=== PATIENT | female | born 1975 | race American Indian/Alaskan Native ===

== ENCOUNTER 2017-02-07 21:51 | Inpatient (IN) | payer MEDICAID ==
[2017-02-07 21:51] VITALS: BMI 25.8
--- NOTE | 2017-02-07 22:26 | ED PDOC ---
Arrival/HPI - General Chief Complaint: Abdominal Pain Time Seen by Provider: 02/07/17 22:03 Historian: Patient - History of Present Illness Narrative History of Present Illness (Text): 02/07/17 22:26 Shanelle Mancini is a 41 year old female, whose past medical history includes gastroparesis, diabetes, hypertension, gastric/duodenal ulcers, and GERD, who presents to the emergency department complaining of epigastric pain since this morning. /Patient reports associated nausea and vomiting. Patient was seen in the emergency department on 01/06/2017 for similar complaints and admitted to the hospital for further evaluation. Patient denies any fever, chills, chest pain, shortness of breath, diarrhea, urinary symptoms, back pain, neck pain, headache, dizziness, or any other complaints. PMD: Dr. Juan Theodore Time/Duration: Other (this morning) Symptom Onset: Gradual Symptom Course: Unchanged Activities at Onset: Rest, Light Context: Home Past Medical History - Provider Review Nursing Documentation Reviewed: Yes - Infectious Disease Hx of Infectious Diseases: None - Tetanus Immunization Tetanus Immunization: Unknown - Past Medical History Past Medical History: No Previous - Cardiac Hx Hypertension: Yes - Pulmonary Hx Respiratory Disorders: No Hx Asthma: No Hx Bronchitis: No Hx Chronic Obstructive Pulmonary Disease (COPD): No Hx Emphysema: No - Neurological Hx Neurological Disorder: Yes (NEUROPATHY) Hx Alzheimer's Disease: No HX Cerebrovascular Accident: No Hx Dementia: No Hx Migraine: No Hx Parkinson's Disease: No Hx Seizures: No Hx Transient Ischemic Attacks (TIA): No - HEENT Hx HEENT Disorder: No Hx Blind: No Hx Cataracts: No Hx Deafness: No Hx Difficulty Chewing: No Hx Epistaxis: No Hx Glaucoma: No Hx Macular Degeneration: No - Renal Hx Renal Disorder: No Hx Renal Failure: No - Endocrine/Metabolic Hx Endocrine Disorders: Yes Hx Diabetes Mellitus Type 1: Yes Hx Hyperthyroidism: No Hx Hypothyroidism: No - Hematological/Oncological Hx Blood Transfusions: No Hx Blood Transfusion Reaction: No - Integumentary Hx Dermatological Disorder: Yes (DIABETIC FOOT ULCER R/O OSTEO 06-04-14) Hx Basal Cell Carcinoma: No Hx Eczema: No Hx Melanoma: No Hx Psoriasis: No Hx Squamous Cell Carcinoma: No - Musculoskeletal/Rheumatological Hx Musculoskeletal Disorders: Yes (B/L FOOT ULCER WERE HEALED) Hx Falls: No Hx Osteomyelitis: Yes (LEFT FOOT) - Gastrointestinal Hx Gastrointestinal Disorders: (gastritis,gastropoeresis) - Genitourinary/Gynecological Hx Urinary Tract Infection: Yes - Psychiatric Hx Anxiety: Yes Hx Substance Use: No - Past Surgical History Past Surgical History: No Previous - Surgical History Hx Amputation: No Hx Appendectomy: No Hx Cardiac Catheterization: No Hx Cholecystectomy: No Hx Gastric Bypass Surgery: No Hx Hysterectomy: No Hx Joint Replacement: No Hx Kidney Transplant: No Hx Liver Transplant: No Hx Mastectomy: No Hx Open Heart Surgery: No Hx Orthopedic Surgery: No Hx Splenectomy: No Hx Valve Replacement: No - Anesthesia Hx Anesthesia: No Hx Anesthesia Reactions: No Hx Malignant Hyperthermia: No - Suicidal Assessment Feels Threatened In Home Enviroment: No Family/Social History - Physician Review Nursing Documentation Reviewed: Yes Family/Social History: No Known Family HX Smoking Status: Never Smoked Hx Alcohol Use: No Hx Substance Use: No Hx Substance Use Treatment: No Allergies/Home Meds Allergies/Adverse Reactions: Allergies No Known Allergies Allergy (Verified 12/01/16 11:38) Review of Systems - Physician Review All systems were reviewed & negative as marked: Yes - Review of Systems Constitutional: Normal. absent: Fevers Eyes: Normal ENT: Normal Respiratory: Normal. absent: SOB, Cough Cardiovascular: Normal. absent: Chest Pain Gastrointestinal: Abdominal Pain, Nausea, Vomiting. absent: Diarrhea Genitourinary Female: Normal. absent: Dysuria, Frequency, Hematuria, Urine Output Changes Musculoskeletal: Normal. absent: Back Pain, Neck Pain Skin: Normal. absent: Rash Neurological: Normal. absent: Headache, Dizziness Endocrine: Normal Hemo/Lymphatic: Normal Psychiatric: Normal Physical Exam Vital Signs Reviewed: Yes Vital Signs Temp Pulse Resp BP Pulse Ox 02/07/17 22:11 97.9 F 124 H 18 188/120 H 100 Temperature: Afebrile Blood Pressure: Hypertensive Pulse: Regular Respiratory Rate: Normal Appearance: Positive for: Well-Appearing, Non-Toxic, Comfortable Pain Distress: None Mental Status: Positive for: Alert and Oriented X 3 - Systems Exam Head: Present: Atraumatic, Normocephalic Pupils: Present: PERRL Extroacular Muscles: Present: EOMI Conjunctiva: Present: Normal Mouth: Present: Moist Mucous Membranes Neck: Present: Normal Range of Motion Respiratory/Chest: Present: Clear to Auscultation, Good Air Exchange. No: Respiratory Distress, Accessory Muscle Use Cardiovascular: Present: Regular Rate and Rhythm, Normal S1, S2. No: Murmurs Abdomen: Present: Normal Bowel Sounds. No: Tenderness, Distention, Peritoneal Signs Back: Present: Normal Inspection Upper Extremity: Present: Normal Inspection. No: Cyanosis, Edema Lower Extremity: Present: Normal Inspection. No: Edema Neurological: Present: GCS=15, CN II-XII Intact, Speech Normal Skin: Present: Warm, Dry, Normal Color. No: Rashes Psychiatric: Present: Alert, Oriented x 3, Normal Insight, Normal Concentration Medical Decision Making ED Course and Treatment: 02/07/17 22:26 Impression: 41 year old female complaining of epigastric pain, nausea, and vomiting since this morning. Plan: -- EKG -- Chest X-ray -- Labs, cardiac enzymes, lipase -- Urinalysis -- Protonix -- Pepcid -- Reglan -- Dilaudid -- Reassess and disposition Prior Visits: Notes and results from previous visits were reviewed. On 01/04/2017, pt was seen in the Emergency department for abdominal pain, nausea, and vomiting. Pt was admitted to the hospital for further evaluation. Progress Notes: Reviewed EKG, sinus tachycardia at 122 bpm. No acute changes. 02/07/17 23:51 Reviewed radiology, Chest X-ray shows no active disease. 02/08/17 00:[address] Oakes, covering for Dr. Theodore. Requests pt go to hospitalist service. Case discussed with emergency medical technician/driver operations and maintenance technician, who is aware and agrees with plan. House doctor paged. 02/08/17 00:[address] Santos, who is aware and agrees with plan. Accepts pt in to hospitalist service. Pt will go to [facility] observation gastroparesis and intractable vomiting. Pt is no acute distress. Discussed results and hospital observation plan with pt , who is aware and verbalizes understanding. - Lab Interpretations Lab Results: 02/07/17 23:00 02/07/17 23:00 Lab Results 02/07/17 23:00: WBC 8.0, RBC 4.33, Hgb 11.9 L, Hct 35.2 L, MCV 81.3, MCH 27.5, MCHC 33.8, RDW 14.5, Plt Count 400, MPV 9.4, Sodium 136, Potassium 3.9, Chloride 100, Carbon Dioxide 23, Anion Gap 17, BUN 17, Creatinine 0.7, Est GFR ( Amer) > 60, Est GFR (Non-Af Amer) > 60, Random Glucose 191 H, Calcium 10.1, Total Bilirubin 1.4 H, AST 26, ALT 18, Alkaline Phosphatase 98, Lactate Dehydrogenase 643, Total Creatine Kinase 322 H, CK-MB (CK-2) 2.1, CK-MB (CK-2) % Cancelled, Troponin I < 0.01 D, Total Protein 8.7 H, Albumin 4.3, Globulin 4.4, Albumin/Globulin Ratio 1.0 L, Lipase 36, Urine Color Yellow, Urine Appearance Slight-cloudy, Urine pH 6.0, Ur Specific [employer] 1.025, Urine Protein 30 H, Urine Glucose (UA) >=1000, Urine Ketones 15 H, Urine Blood Small H , Urine Nitrate Negative, Urine Bilirubin Negative, Urine Urobilinogen 0.2, Ur Leukocyte Esterase Negative, Urine RBC 1 - 3, Urine WBC 1 - 3, Ur Epithelial Cells 1 - 3, Urine Bacteria Occ, Urine HCG, Qual Negative I have reviewed the lab results: Yes - RAD Interpretation Narrative RAD Interpretations (Text): Chest X-ray shows no active disease. Radiology Orders: 02/07/17 22:28 CHEST PORTABLE [RAD] Stat Principal Quality Engineer: ED Physician - EKG Interpretation EKG Interpretation (Text): EKG: Ordered, reviewed, and independently interpreted the EKG. Rate : 122 BPM Rhythm : sinus tachycardia Interpretation : No acute changes. Comparison : No acute change from previous EKG on 01/04/2017. Interpreted by ED Physician: Yes Type: 12 lead EKG - Medication Orders Current Medication Orders: Discontinued Medications Famotidine (Pepcid) 20 mg IVP STAT STA Stop: 02/07/17 22:32 Last Admin: 02/07/17 23:06 Dose: 20 MG IVP Administration Document 02/07/17 23:06 YP (Rec: 02/07/17 23:06 YP [id number]) Charges for Administration # of IVP Administrations 1 Hydromorphone HCl (Dilaudid) 2 mg IVP STAT STA Stop: 02/07/17 22:32 Last Admin: 02/07/17 23:06 Dose: 2 MG IVP Administration Document 02/07/17 23:06 YP (Rec: 02/07/17 23:06 YP [id number]) Charges for Administration # of IVP Administrations 1 Metoclopramide HCl (Reglan) 10 mg IVP ONCE ONE Stop: 02/07/17 22:32 Last Admin: 02/07/17 23:06 Dose: Not Given Non-Admin Reason: Patient Refused Ondansetron HCl (Zofran Inj) 4 mg IVP ONCE ONE Stop: 02/07/17 23:20 Pantoprazole Sodium (Protonix Inj) 40 mg IVP ONCE STA Stop: 02/07/17 22:32 Last Admin: 02/07/17 23:06 Dose: 40 MG IVP Administration Document 02/07/17 23:06 YP (Rec: 02/07/17 23:06 YP [id number]) Charges for Administration # of IVP Administrations 1 - Scribe Statement The provider has reviewed the documentation as recorded by the Yumikoibever Garcia Provider Attestation: All medical record entries made by the Scribe were at my direction and personally dictated by me. I have reviewed the chart and agree that the record accurately reflects my personal performance of the history, physical exam, medical decision making, and the department course for this patient. I have also personally directed, reviewed, and agree with the discharge instructions and disposition. Disposition/Present on Arrival - Present on Arrival Any Indicators Present on Arrival: No History of DVT/PE: No History of Uncontrolled Diabetes: No Urinary Catheter: No History of Decub. Ulcer: No History Surgical Site Infection Following: None - Disposition Have Diagnosis and Disposition been Completed?: Yes Diagnosis: Gastroparesis, Intractable vomiting with nausea, Abdominal pain Disposition: HOSPITALIZED Disposition Time: 00:17 Patient Plan: Observation Patient Problems: Current Active Problems Problem Status Diagnosed Acute urinary tract infection Acute Gastroparesis Acute Intractable vomiting with nausea Acute Nausea & vomiting Acute Pneumonia Acute Abdominal pain Chronic Condition: STABLE Referrals: David Theodore DO [Primary Care Provider] - Follow up with primary
[2017-02-07] MEDS ORDERED: HYDROmorphone 2 mg/ml ISec IVP STA (22:31)
[2017-02-07 23:22] LABS: ALKALINE PHOSPHATASE 98 U/L (38-133); ALT/SGPT 18 U/L (7-56); AST/SGOT 26 U/L (15-39); BILIRUBIN,TOTAL 1.4 mg/dL (0.2-1.3); BLOOD UREA NITROGEN 17 mg/dL (7-21); CALCIUM 10.1 mg/dL (8.4-10.5); CARBON DIOXIDE 23 mmol/L (21-33); CHLORIDE 100 mmol/L (98-107); GFR AFRICAN-AMERICAN > 60; GLUCOSE,RANDOM 191 mg/dL (70-110); LIPASE 36 U/L (23-300); POTASSIUM 3.9 mmol/L (3.6-5.0); SODIUM 136 mmol/L (132-148); TOTAL PROTEIN 8.7 g/dL (5.8-8.3)
[2017-02-07 23:27] LABS: HEMATOCRIT 35.2 % (36.0-48.0); MEAN CELL VOLUME 81.3 fL (80.0-105.0); MEAN CORPUSCULAR HEMOGLOBIN 27.5 pg (25.0-35.0); MEAN CORPUSCULAR HGB CONC 33.8 g/dl (31.0-37.0); MEAN PLATELET VOLUME 9.4 fl (7.0-11.0); RED CELL DISTRIBUTION WIDTH 14.5 % (11.5-14.5)
[2017-02-07 23:29] LABS: URINE BILIRUBIN NEGATIVE (NEGATIVE); URINE BLOOD SMALL (NEGATIVE); URINE GLUCOSE (UA) >=1000 mg/dL (NEGATIVE); URINE KETONE 15 mg/dL (NEGATIVE); URINE LEUKOCYTE ESTERASE NEGATIVE Leu/uL (NEGATIVE); URINE PROTEIN 30 mg/dL (<30 mg/dL); URINE UROBILINOGEN 0.2 E.U./dL (<1 E.U./dL)
[2017-02-07 23:33] LABS: URINE APPEARANCE SLIGHT-CLOUDY (CLEAR); URINE COLOR YELLOW (YELLOW)
[2017-02-07 23:40] LABS: URINE BACTERIA OCC (NEG)
[2017-02-07 23:43] LABS: TROPONIN I < 0.01 ng/mL
--- NOTE | 2017-02-08 00:26 | CP.PCM.HP ---
<FreyaMel - Last Filed: 02/08/17 01:53> History of Present Illness - History of Present Illness History of Present Illness: PGY-[address] Fadia Santos H&P Admission: [facility] observation gastroparesis and intractable vomiting. 41 year old female, whose past medical history includes gastroparesis, DM-1, hypertension, gastritis (neg H pylori nov 2016), gastric/duodenal ulcers, and GERD, who presents to the emergency department complaining of epigastric pain with nausea and vomiting x 1 day. Patient admitted in last month for similar symptoms and treatment of gastroparesis. Denies sick contact, change of meds, change of diet. Pt states that when she was on botox treatment for gastroparesis , her flare was limited to once a year. Now that she is off botox treatment, her gastroparesis seems to recurr every month. Her next appointment for botox therapy is February 2017. In the ED - pt was sinus tachycardia at 124, BP 188/120, Total bili is high at 1.4, CK is high at 322 - EKG, sinus tachycardia at 122 bpm. No acute changes. - Chest X-ray shows no active disease ROS: Patient denies any fever, chills, chest pain, shortness of breath, diarrhea , urinary symptoms, back pain, neck pain, headache, dizziness, or any other complaints. PMH Hypertension gastritis (neg H pylori nov 2016) Diabetes I with NEUROPATHY, Hx DKA, DM gastroparesis - used to go to [facility] to get botox for DM gastroparesis DIABETIC FOOT ULCER R/O OSTEO 06-04-14 Osteomyelitis, L FOOT gastric and duodenal ulcers, GERD Hx Urinary Tract Infection Anxiety HTN Hx nephrolithiasis PSH None FHx: + for DM, denies history of cancer, aunt of heart attack at 72 but had never seen a doctor her whole life SHx: lives with family, does not work. Denies smoking, EtOH, drug use Allergies: Intolerable to side effect of Reglan - aggravates nausea/vomit, per GI Dr. Barahona, no reglan PMD = Dr. Theodore GI = Dr. Gomez Informal Waiter/Waitress = Dr Noel Barahona at [facility] - Next appointment February 2017 Present on Admission - Present on Admission Any Indicators Present on Admission: Yes History of Uncontrolled Diabetes: Yes Past Patient History - Infectious Disease Hx of Infectious Diseases: None - Tetanus Immunizations Tetanus Immunization: Unknown - Past Social History Smoking Status: Never Smoked - CARDIAC Hx Hypertension: Yes - PULMONARY Hx Respiratory Disorders: No Hx Asthma: No Hx Bronchitis: No Hx Chronic Obstructive Pulmonary Disease (COPD): No Hx Emphysema: No - NEUROLOGICAL Hx Neurological Disorder: Yes (NEUROPATHY) Hx Alzheimer's Disease: No HX Cerebrovascular Accident: No Hx Dementia: No Hx Migraine: No Hx Parkinson's Disease: No Hx Seizures: No Hx Transient Ischemic Attacks (TIA): No - HEENT Hx HEENT Problems: No Hx Blind: No Hx Cataracts: No Hx Deafness: No Hx Difficulty Chewing: No Hx Epistaxis: No Hx Glaucoma: No Hx Macular Degeneration: No - RENAL Hx Chronic Kidney Disease: No Hx Renal Failure: No - ENDOCRINE/METABOLIC Hx Endocrine Disorders: Yes Hx Diabetes Mellitus Type 1: Yes Hx Hyperthyroidism: No Hx Hypothyroidism: No - HEMATOLOGICAL/ONCOLOGICAL Hx Blood Transfusions: No Hx Blood Transfusion Reaction: No - INTEGUMENTARY Hx Dermatological Problems: Yes (DIABETIC FOOT ULCER R/O OSTEO 06-04-14) Hx Basil Cell: No Hx Eczema: No Hx Melanoma: No Hx Psoriasis: No Hx Squamous Cell: No - MUSCULOSKELETAL/RHEUMATOLOGICAL Hx Musculoskeletal Disorders: Yes (B/L FOOT ULCER WERE HEALED) Hx Falls: No Hx Osteomyelitis: Yes (LEFT FOOT) - GASTROINTESTINAL Hx Gastrointestinal Disorders: (gastritis,gastropoeresis) - GENITOURINARY/GYNECOLOGICAL Hx Urinary Tract Infection: Yes - PSYCHIATRIC Hx Anxiety: Yes Hx Substance Use: No - SURGICAL HISTORY Hx Amputation: No Hx Appendectomy: No Hx Cardiac Catheterization: No Hx Cholecystectomy: No Hx Gastric Bypass Surgery: No Hx Hysterectomy: No Hx Joint Replacement: No Hx Kidney Transplant: No Hx Liver Transplant: No Hx Mastectomy: No Hx Open Heart Surgery: No Hx Orthopedic Surgery: No Hx Splenectomy: No Hx Valve Replacement: No - ANESTHESIA Hx Anesthesia: No Hx Anesthesia Reactions: No Hx Malignant Hyperthermia: No Meds Allergies/Adverse Reactions: Allergies Allergy/AdvReac Type Severity Reaction Status Date / Time metoclopramide HCl AdvReac VOMITING Verified 02/08/17 00:54 [From Reglan] Physical Exam - Constitutional Appears: No Acute Distress - Head Exam Head Exam: ATRAUMATIC, NORMAL INSPECTION, NORMOCEPHALIC - Eye Exam Eye Exam: EOMI, Normal appearance, PERRL Pupil Exam: NORMAL ACCOMODATION - ENT Exam ENT Exam: Mucous Membranes Moist, Normal Oropharynx Additional comments: no blood in mouth - Neck Exam Neck exam: Positive for: Normal Inspection. Negative for: Lymphadenopathy, Meningismus Additional comments: supple - Respiratory Exam Respiratory Exam: Clear to Auscultation Bilateral, NORMAL BREATHING PATTERN. absent: Rales, Rhonchi, Wheezes - Cardiovascular Exam Cardiovascular Exam: REGULAR RHYTHM, +S1, +S2. absent: Systolic Murmur - GI/Abdominal Exam GI & Abdominal Exam: Normal Bowel Sounds, Soft, Tenderness (RUQ and suprapubic tenderness upon palpation; negative gupta, rovising, mcburney) - Extremities Exam Extremities exam: Positive for: normal capillary refill, pedal pulses present. Negative for: calf tenderness, pedal edema - Back Exam Back exam: absent: CVA tenderness (L), CVA tenderness (R), rash noted, vertebral tenderness - Neurological Exam Neurological exam: Alert, Oriented x3 - Psychiatric Exam Psychiatric exam: Normal Affect, Normal Mood - Skin Skin Exam: Dry, Normal Color, Warm Results - Vital Signs Recent Vital Signs: Last Vital Signs Temp 97.9 F 02/07/17 22:11 Pulse 106 H 02/08/17 00:24 Resp 18 02/08/17 00:24 BP 157/87 H 02/08/17 00:24 Pulse Ox 95 02/08/17 00:24 - Labs Result Diagrams: 02/07/17 23:00 02/07/17 23:00 Labs: Laboratory Results - last 24 hr 02/07/17 23:00 WBC 8.0 RBC 4.33 Hgb 11.9 L Hct 35.2 L MCV 81.3 MCH 27.5 MCHC 33.8 RDW 14.5 Plt Count 400 MPV 9.4 Sodium 136 Potassium 3.9 Chloride 100 Carbon Dioxide 23 Anion Gap 17 BUN 17 Creatinine 0.7 Est GFR ( Amer) > 60 Est GFR (Non-Af Amer) > 60 Random Glucose 191 H Calcium 10.1 Total Bilirubin 1.4 H AST 26 ALT 18 Alkaline Phosphatase 98 Lactate Dehydrogenase 643 Total Creatine Kinase 322 H CK-MB (CK-2) 2.1 CK-MB (CK-2) % Cancelled Troponin I < 0.01 D Total Protein 8.7 H Albumin 4.3 Globulin 4.4 Albumin/Globulin Ratio 1.0 L Lipase 36 Urine Color Yellow Urine Appearance Slight-cloudy Urine pH 6.0 Ur Specific [employer] 1.025 Urine Protein 30 H Urine Glucose (UA) >=1000 Urine Ketones 15 H Urine Blood Small H Urine Nitrate Negative Urine Bilirubin Negative Urine Urobilinogen 0.2 Ur Leukocyte Esterase Negative Urine RBC 1 - 3 Urine WBC 1 - 3 Ur Epithelial Cells 1 - 3 Urine Bacteria Occ Urine HCG, Qual Negative Assessment & Plan - Assessment and Plan (Free Text) Plan: 41 year old female, whose past medical history includes gastroparesis, DM-1, hypertension, gastritis (neg H pylori nov 2016), gastric/duodenal ulcers, and GERD, admitted for intractable epigastric pain with nausea and vomiting x 1 day. Intractable nausea and vomiting Hx gastritis and gastric/duodenal ulcers Dehydration - NPO, IVF - (home) Protonix 40mg IVP BID - (home) Zofran 4 q4 PRN - (home) Sucralfate 1mg q6 - Dilaudid 1mg IVP Q4H PRN - GI consult - Dr. Gomez - r/o cardiac cause serial cardiac enzyme RUQ Abdominal Pain - Total bili elevated at 1.4; direct bili pending - Normal LFT, lipase - abdominal ultrasound Diabetic Gastroparesis, refractory - HOME: erythromycin 250 mgIV QID - QTc 453 CK elevated at 322; Negative urine bilirubin; (+) urine RBC - likely muscle breakdown from decrease PO intake - IVF Diabetes type 1, last A1C 11.5 on 12/02/16, uncontrolled - Home Levemir 30 HS - ISSS - low Proteinuria - BP control and nephrology consult Nomocytic Anemia, chronic - Occult blood in vomitus and stool Pulmonary nodule found on CT chest, Dec 2016 - Repeat CT chest in 3-6 months HTN - (home) metoprolol 25 BID Prophylactic Measures - GI PPX; DVT PPX: SCD S/R/D/w Dr. Santos - Date & Time Date: 02/08/17 Time: 01:13 <Juan Santos - Last Filed: 02/08/17 06:53> Results - Vital Signs Recent Vital Signs: Last Vital Signs Temp 98.1 F 02/08/17 05:42 Pulse 123 H 02/08/17 05:42 Resp 19 02/08/17 05:42 BP 173/93 H 02/08/17 05:42 Pulse Ox 96 02/08/17 05:42 - Labs Result Diagrams: 02/07/17 23:00 02/07/17 23:00 Labs: Laboratory Results - last 24 hr 02/08/17 05:50 Emesis for Blood Positive H Attending/Attestation - Attestation I have personally seen and examined this patient.: Yes I have fully participated in the care of the patient.: Yes I have reviewed all pertinent clinical information: Yes Notes (Text): 02/08/17 06:52 Patient was seen when she was in bed # 2 in the ER . Agree with history ,physical examination ,assessment and plan.
[2017-02-08] MEDS: Lactated Ringer's 1,000 ML IV SCH ×4 (01:55→23:46)
[2017-02-08] MEDS: HYDROmorphone 1 mg/ml ISec IVP PRN ×6 (01:56→23:53)
--- NOTE | 2017-02-08 07:18 | RAD ---
HISTORY: abdominal pain COMPARISON: Comparison chest dated 12/09/2016 FINDINGS: LUNGS: No active pulmonary disease. PLEURA: No significant pleural effusion identified, no pneumothorax apparent. CARDIOVASCULAR: Normal. OSSEOUS STRUCTURES: No significant abnormalities. VISUALIZED UPPER ABDOMEN: Normal. OTHER FINDINGS: None. IMPRESSION: No active disease.
[2017-02-08] MEDS ORDERED: Sucralfate 1 gm/10 ml Oral Susp UD PO SCH (07:30)
[2017-02-08] MEDS: Insulin Lispro (humaLOG) LOW Coverage SC SCH ×4 (08:26→22:08)
[2017-02-08 09:13] LABS: BASO # 0.01 [, K/mm3] (0.0-2.0); BASO % 0.1 % (0.0-3.0); GRAN # 10.23 (1.4-6.5); GRAN % 92.6 % (50.0-68.0); HEMATOCRIT 34.8 % (36.0-48.0); LYMPH # 0.7 (1.2-3.4); LYMPH % 6.6 % (22.0-35.0); MEAN CELL VOLUME 83.3 fL (80.0-105.0); MEAN CORPUSCULAR HGB CONC 32.5 g/dl (31.0-37.0); MEAN PLATELET VOLUME 9.3 fl (7.0-11.0); MONO # 0.1 (0.1-0.6); MONO % 0.7 % (1.0-6.0); PLATELET COUNT 404 [, 10^3/uL] (120.0-450.0); RED CELL DISTRIBUTION WIDTH 14.8 % (11.5-14.5); WHITE BLOOD COUNT 11.1 [, 10^3/ul] (4.5-11.0)
[2017-02-08 09:14] LABS: ADD MANUAL DIFF? NO
[2017-02-08 09:27] LABS: ALB/GLOB RATIO 1.1 (1.1-1.8); ALKALINE PHOSPHATASE 95 U/L (38-133); ALT/SGPT 18 U/L (7-56); AST/SGOT 26 U/L (15-39); BILIRUBIN,DIRECT 0.5 mg/dL (0.0-0.4); BILIRUBIN,TOTAL 1.3 mg/dL (0.2-1.3); BLOOD UREA NITROGEN 20 mg/dL (7-21); CALCIUM 9.7 mg/dL (8.4-10.5); CARBON DIOXIDE 20 mmol/L (21-33); CHLORIDE 99 mmol/L (98-107); GFR AFRICAN-AMERICAN > 60; SODIUM 135 mmol/L (132-148); TOTAL PROTEIN 9.1 g/dL (5.8-8.3)
[2017-02-08 09:37] LABS: TROPONIN I 0.02 ng/mL
[2017-02-08 09:45] LABS: GLUCOSE,RANDOM 392 mg/dL (70-110)
[2017-02-08] MEDS ORDERED: Erythromycin 500 mg Inj IVPB SCH (10:00)
--- NOTE | 2017-02-08 10:55 | CP.PCM.PN ---
Subjective - Date & Time of Evaluation Date of Evaluation: 02/08/17 Time of Evaluation: 10:52 - Subjective Subjective: Patient has very poor veins,needs iv access Objective - Vital Signs/Intake and Output Vital Signs (last 24 hours): Temp Pulse Resp BP Pulse Ox 98.1 F 123 H 19 173/93 H 96 02/08/17 05:42 02/08/17 05:42 02/08/17 05:42 02/08/17 05:42 02/08/17 05:42 - Medications Medications: Current Medications Hydromorphone HCl (Dilaudid) 1 mg IVP Q4H PRN PRN Reason: Pain, severe (8-10) Last Admin: 02/08/17 05:26 Dose: 1 mg Lactated Ringer's (Lactated Ringer's) 1,000 mls @ 125 mls/hr IV .Q8H [facility] Last Admin: 02/08/17 01:55 Dose: 125 mls/hr Erythromycin 250 mg/ Sodium (Chloride) 100 mls @ 100 mls/hr IVPB Q6 [facility] Last Admin: 02/08/17 05:25 Dose: 100 mls/hr Insulin Detemir (Levemir) 30 unit SC HS MICHELLE Insulin Human Lispro (Humalog Low) 0 units SC ACHS MICHELLE PRN Reason: Protocol Last Admin: 02/08/17 08:26 Dose: 4 units Lorazepam (Ativan) 0.5 mg IVP Q4 PRN; Protocol PRN Reason: Anxiety Metoprolol Tartrate (Lopressor) 25 mg PO BID MICHELLE Ondansetron HCl (Zofran Inj) 4 mg IVP Q4 PRN PRN Reason: Nausea/Vomiting Pantoprazole Sodium (Protonix Inj) 40 mg IVP Q12 MICHELLE - Labs Labs: 02/08/17 09:00 02/08/17 09:00 - Constitutional Appears: No Acute Distress Assessment and Plan - Assessment and Plan (Free Text) Assessment: Poor venous access Plan: Hep lock inserted in the L wrist region. # 24 angiocath used.
--- NOTE | 2017-02-08 11:42 | US ---
Abdominal ultrasound dated 02/08/2017. History: Right upper quadrant pain with increased bilirubin. Sonographic evaluation of the abdomen performed in standard fashion. Comparison made with CT scan abdomen and pelvis as well as abdominal ultrasound dated 12/10/2016 and 11/27/2014 respectively. The liver exhibits normal size measuring approximately 14.8 cm in CC dimension. Note that the liver was enlarged on prior CT scan measuring nearly 21 cm in CC dimension. Clinical correlation recommended. No obvious hepatic mass collection or calcification seen. . No ascites. Gallbladder is diminutive -contracted likely due to nonfasting state however clinical correlation recommended. No evidence of intraluminal gallbladder calculi, pericholecystic fluid collections or sonographic Jackson sign. Common bile duct measures 4.2 mm. Visualized portions of the pancreas appears grossly unremarkable. No evidence of pancreatic ductal dilatation mass collection or calcification so far as can be seen. Spleen exhibits normal size measuring 7.9 cm in greatest dimension. No splenic mass collection or calcification. The kidneys exhibit relatively symmetric size. Right kidney demonstrates slight increased echotexture which could be artifactual. Clinical correlation recommended no evidence of shadowing calculi or hydronephrosis. Impression: Gallbladder is diminutive and or contracted likely due to nonfasting state however clinical correlation recommended.
[2017-02-08 17:38] LABS: TROPONIN I < 0.01 ng/mL
--- NOTE | 2017-02-08 20:04 | CARD ---
APPROVED REPORT EKG Measurement Heart [id number] <Conclusion> Sinus tachycardia Otherwise normal ECG
[2017-02-08] MEDS: Insulin Detemir 100 units/ml Vial (Levemir) SC SCH (23:32)
[2017-02-09] MEDS: Lactated Ringer's 1,000 ML IV SCH (02:00)
[2017-02-09] MEDS: HYDROmorphone 1 mg/ml ISec IVP PRN ×5 (03:52→21:48)
[2017-02-09] MEDS: Insulin Lispro (humaLOG) LOW Coverage SC SCH ×3 (08:15→17:26)
--- NOTE | 2017-02-09 08:20 | CON ---
DATE: 02/08/2017 Seen and examined at the bedside earlier today. REQUEST FOR CONSULT: Right upper quadrant pain, gastroparesis. HISTORY OF PRESENT ILLNESS: This is a 41-year-old female with a past medical history of diabetes claude litus type 1, gastroparesis, gastritis, peptic ulcer disease and GERD, came to the Emergency Room wit h complaints of epigastric pain, nausea and vomiting that started yesterday. The patient is known to our service. She was recently admitted back in 11/2016 for similar complaints. She underwent an up per endoscopy on 12/12/2016, found to have gastric ulcers that were clean-based as well as duodenal u lcers and esophageal ulcerations. The patient states that she is due for a Botox injection. Her nex t treatment is next month, 03/09/2017. No reports of any diarrhea. She has been consuming soft food s. She sees Dr. Barahona in [place]. She denies shortness of breath or chest pain. PAST MEDICAL HISTORY: Peptic ulcer disease, GERD, diabetes mellitus, gastroparesis, history of DKA, osteomyelitis of the left foot, history of UTI, hypertension, nephrolithiasis, anxiety. PAST SURGICAL HISTORY: EGD was 12/12/2016, found to have peptic ulcer disease, LA grade C esophagiti s, gastroparesis. Pathology of gastric biopsy showed active gastritis, negative for H. pylori. FAMILY HISTORY: Denies any known history of cancer. SOCIAL HISTORY: Denies any smoking, EtOH, or drugs. ALLERGIES: Reglan. MEDICATIONS: Reviewed as per MAR. REVIEW OF SYSTEMS: Systems were reviewed with positive findings, see HPI. VITAL SIGNS: Temperature is 98.1, blood pressure is 173/93, pulse is 123, respirations 19, 96 on marcy m air. LABORATORY: WBC is 11.1, H and H is 11.3 and 34.8, platelets is 404. Sodium 135, K is 5.0, BUN is 2 0, creatinine is 0.8. Her glucose this morning was 392. Total bilirubin is 1.3, direct bili is 0.5, AST 26, ALT 18 and alkaline phosphatase is 95. Her total CK is 270, yesterday it was 322. Cardiac enzymes negative x 2. Urine negative for leukoesterase, small blood, positive for ketones. po sitive for blood. Chest x-ray on admission: No active pulmonary disease. No significant pleural ef fusion, no pneumothorax. Impression: No active disease. Abdominal ultrasound: Gallbladder is dimin utive and/or contractured likely due to nonfasting state; however, clinical correlation is recommende d. Gallbladder diminutive, contractured likely due to nonfasting state; no evidence of intraluminal gallbladder calculi. No pericholecystic fluid collection or sonographic Jackson sign. CBD measures 4 .2 mm. No obvious hepatic mass collection or calcification, no ascites. The liver exhibits normal s ize. Pancreas unremarkable. No ductal dilatation, mass or collection or calcification. The spleen is normal in size. Kidneys, the right kidney demonstrates slight increase echotexture which could be artifactual. Clinical correlation recommended. No evidence of shadowing calculi or hydronephrosis. PHYSICAL EXAMINATION: HEENT: Sclerae are anicteric. NECK: Supple. CARDIAC: S1, S2. LUNGS: Decreased breath sounds, no rales or wheeze, good air entry. ABDOMEN: With bowel sounds, soft. Positive tenderness to epigastric area. No rebound, guarding, or organomegaly. EXTREMITIES: Positive pedal pulses, no edema. NEUROLOGIC: Awake, alert, and oriented. ASSESSMENT: This is a 41-year-old female with a past medical history of diabetes mellitus type 1, ga stroparesis, peptic ulcer disease and GERD admitted with epigastric pain, nausea and vomiting x 1 day . The patient had abdominal ultrasound, which was negative for any gallstones or any biliary dilatat ion. The patient with uncontrolled diabetes mellitus, history of a pulmonary nodule and diabetic gas troparesis. PLAN: Keep glycemic control. Currently n.p.o. Continue IV fluids for hydration. She is on IV eryt hromycin q. 6 hours. She is on Protonix 40 q. 12. On Dilaudid for pain. Consider Carafate. Will n eed a repeat endoscopy in about 2-3 months' time to evaluate healing of ulcers. Thank you for this consult and for allowing to participate in your patient's care. We will make furt her recommendations based upon patient's clinical course. The patient was seen and case discussed wi Dr. Gomez. Samantha YEN cc: [id number] TT: 02/08/2017 16:12:59 Confirmation # [id number] Dictation # [id number] mn
[2017-02-09] MEDS: Sodium Chloride 0.9% 1,000 ML IV SCH (08:30)
--- NOTE | 2017-02-09 08:41 | CON ---
DATE: 02/08/2017 REQUESTED BY: Dr. Binh Dowling REASON FOR CONSULTATION: Proteinuria, hyperosmolar nonketotic syndrome. The patient is a 41-year-old female. She presented to [facility] Emergency Department last night with a complaint of epigastric pain accompanied by nausea and vomiting. Of note, the malinda ent has a known history of gastroparesis, which has been attributed to her diabetes, for which she young s had numerous hospitalizations. On arrival to the ED, the patient was noted to have a blood pressur e of 188/120 with a heart rate of 124, breathing at 18 breaths per minute and with an oxygen saturati on of 100%. Oral temperature was 97.9 degrees. Physical exam was unremarkable and the patient did n ot have any peritoneal signs. Labs revealed mild normocytic anemia with an H and H of 11.9/35.2. Ch emistry panel had a glucose of 191. Electrolytes were within normal limits. CPK was mildly increase d at 322. Subsequent labs revealed that her glucose increased to 392 and that her hemoglobin A1c was 11.3. Urinalysis had protein of 30 mg/dL, ketones of 15 and small blood with 1-3 RBCs per high vish r field. Her emesis was noted to be positive for occult blood. The patient was admitted for further evaluation and management. Since having been admitted, she has had an abdominal ultrasound that was fairly unremarkable. Of note, the patient denies any history of gross hematuria and she also denies having frothy urine at home. She states that because of the vomiting, she was unable to take her ho me medications including metoprolol tartrate. REVIEW OF SYSTEMS: Taken across all 10 systems and 14 points and was negative unless stated otherwis e above. PAST MEDICAL HISTORY: Significant for gestational diabetes mellitus that occurred approximately 24 y ears ago that progressed to type 2 diabetes mellitus, for which she is now insulin-dependent and the patient has had several prior hospitalizations for diabetic ketoacidosis. Additionally, she has a kn own history of proteinuria and it is thought that her diabetic gastroparesis represents a form of zoraida betic neuropathy. She also has a prior history of osteomyelitis as well as gastritis, GERD, chronic pain syndrome, and nephrolithiasis. MEDICATIONS: That the patient had been taking at home and prior to admission included erythromycin 2 50 mg orally 4 times a day, Levemir 30 units subcutaneously nightly with Humulin 10 units subcutaneou sly with each meal, Lopressor 25 mg orally twice daily, Zofran orally dissolving tablets 4 mg orally every 4 hours as needed, pantoprazole 40 mg orally twice daily and Carafate 1 g orally every 6 hours. ALLERGIES: THE PATIENT REPORTED BEING ALLERGIC TO REGLAN, WHICH SHE STATES GIVES HER VOMITING. SOCIAL HISTORY: Notable for the patient being single. She has one 24-year-old son, with whom she do es not live. She currently does not work. There is no alcohol use nor any illicit drug use. FAMILY HISTORY: Notable for the presence of type 2 diabetes mellitus. Her aunt of a myocardial infarction at the age of 72, but had avoided physicians her entire life. There is no family history of chronic kidney disease or end-stage renal disease. PHYSICAL EXAMINATION: GENERAL: I saw the patient lying in bed. She was in no acute distress when I saw her and was not vo miting, although she did complain that she was feeling somewhat nauseous. VITAL SIGNS: Blood pressure is 144/80, heart rate 134, oral temperature 98.8, respiratory rate is 18 . I's and O's have not yet been documented. HEENT: The patient was normocephalic and atraumatic without any sinus tenderness. Neck was supple w ith a full range of motion. Trachea was midline and freely movable. The thyroid was nontender nor w as it enlarged and there was no jugular venous distention that I could appreciate. Conjunctivae were neither pale nor were they icteric. CHEST: Lung pack on my exam were grossly clear and there were no rales, rhonchi or wheezing that I could appreciate. CARDIAC: Had a regular rate and rhythm without any rubs or gallops. There were no heaves. PMI was not displaced. ABDOMEN: Mildly distended, but nontender on palpation. There was no rebounding, guarding or rigidit y. There was no hepatosplenomegaly. EXTREMITIES: Had only trace sacral edema. NEUROLOGIC: She was nonfocal. VASCULAR: Had no bruits. SKIN: Intact. LABORATORIES: White count is 11.1, H and H 11.3/34.8 with a platelet count of 404,000. There were 9 3% neutrophils, 7% lymphocytes, 4% monocytes. Sodium is 135, potassium is 5.0, chloride 99, bicarbon ate 20, BUN/creatinine is 20/0.8 with a glucose of 392. Hemoglobin A1c is 11.3. Anion gap is 21, T/ALT is 26/18, alkaline phosphatase is 95. LDH is 670. CPK is 270. Troponin I is 0.02. Total pro tein/albumin is 9.1/4.7. Urinalysis was yellow, slightly cloudy with a pH of 6, specific gravity of 1.025, protein of 30, ketones of 15, glucose greater than 1000 with small blood. Emesis was positive for blood. IMAGING: As stated above and chest x-ray was negative. IMPRESSION AND PLAN: The patient barb is a 41-year-old female with history of gestational diabe margy mellitus that progressed to type 2 diabetes mellitus, for which she is now insulin-dependent and for which she has had several hospitalizations for diabetic ketoacidosis, microvascular manifestation s of diabetes including proteinuria as well as neuropathy as manifest by gastroparesis and for which she has responded favorably to Botox injection in the past, also with a history of peptic ulcer disea se with gastroesophageal reflux disease, gastric and duodenal ulcers, history of hypertension, prior history of left foot osteomyelitis, who was admitted with abdominal pain, nausea and vomiting consist ent with diabetic ketoacidosis. Of note, the patient also had a very high blood pressure on presenta tion, although she had no symptoms referable to her elevated blood pressure. I suspect that the elev ated blood pressure represented beta jimenez withdrawal since she had been vomiting this agent up as well. In fact, even now since she has been hospitalized, the patient has remained tachycardic, which is likely secondary to pain. She is receiving her metoprolol, which has been reinitiated. Laborato ry studies today reveal that the patient does have an anion gap of 21 and also that she has mildly de creased bicarbonate 20 and ketones in the urine, which would suggest early diabetic ketoacidosis. We will defer whether or not the patient would benefit from an insulin infusion to endocrinology. With respect to the patient's proteinuria, she has had proteinuria for quite some time now, which likely represents diabetic nephropathy. Additionally, in the setting of uncontrolled hyperglycemia, there c an be proteinuria as well. Once the patient is feeling better, she should be started on either an AC E inhibitor or an angiotensin receptor jimenez with the gaol of decreasing her proteinuria. Addition ally, to help decrease her proteinuria, we will need to have her hemoglobin A1c to approximately 6.5% and this may also have a benefit in improving the patient's neuropathy as well. In the meantime, wh mildred she is here, she is receiving her erythromycin as an infusion and is currently on lactated Ringer 's at 125 mL per hour, which I will continue. She does appear to be somewhat hemoconcentrated as man ifest by the fact that her albumin is 4.7 today. As stated above, the patient would also benefit fro m intensification of her insulin therapy. I will be following this complex patient closely for the chan cortez complex medical problems and I thank you very much for the courtesy of this consultation. Carlos De La Paz MD cc: [id number] TT: 02/09/2017 08:40:34 Confirmation # [id number] Dictation # [id number]
[2017-02-09 09:03] LABS: ADD MANUAL DIFF? NO
[2017-02-09 09:08] LABS: GRAN # 7.07 (1.4-6.5); GRAN % 77.8 % (50.0-68.0); HEMATOCRIT 32.2 % (36.0-48.0); LYMPH # 1.4 (1.2-3.4); LYMPH % 15.9 % (22.0-35.0); MEAN CELL VOLUME 83.4 fL (80.0-105.0); MEAN CORPUSCULAR HEMOGLOBIN 27.2 pg (25.0-35.0); MEAN CORPUSCULAR HGB CONC 32.6 g/dl (31.0-37.0); MEAN PLATELET VOLUME 9.2 fl (7.0-11.0); MONO # 0.6 (0.1-0.6); MONO % 6.3 % (1.0-6.0); PLATELET COUNT 394 [, 10^3/uL] (120.0-450.0); RED CELL DISTRIBUTION WIDTH 15.1 % (11.5-14.5); WHITE BLOOD COUNT 9.1 [, 10^3/ul] (4.5-11.0)
[2017-02-09 09:36] LABS: ALKALINE PHOSPHATASE 84 U/L (38-133); ALT/SGPT 16 U/L (7-56); AST/SGOT 24 U/L (15-39); BILIRUBIN,TOTAL 1.2 mg/dL (0.2-1.3); BLOOD UREA NITROGEN 24 mg/dL (7-21); CALCIUM 9.4 mg/dL (8.4-10.5); CARBON DIOXIDE 22 mmol/L (21-33); CHLORIDE 107 mmol/L (98-107); GFR AFRICAN-AMERICAN > 60; GLUCOSE,RANDOM 237 mg/dL (70-110); POTASSIUM 3.7 mmol/L (3.6-5.0); SODIUM 143 mmol/L (132-148)
--- NOTE | 2017-02-09 17:49 | CP.PCM.PN ---
<Timmy Crump - Last Filed: 02/09/17 18:53> Subjective - Date & Time of Evaluation Date of Evaluation: 02/09/17 Time of Evaluation: 06:45 - Subjective Subjective: 41 year old female, with pmh of gastroparesis, DM-1, hypertension, gastritis ( neg H pylori nov 2016), gastric/duodenal ulcers, and GERD, who presents to the emergency department complaining of epigastric pain with nausea and vomiting x 1 day. Today she states she is feeling better and the pain medications help. However, she still has some abdominal pain and a mild headache. She denies dizziness, chest pain, difficulty breathing, nausea, vomiting, or diarrhea. Objective - Vital Signs/Intake and Output Vital Signs (last 24 hours): Temp Pulse Resp BP Pulse Ox 98.4 F 107 H 20 128/82 100 02/09/17 12:00 02/09/17 17:33 02/09/17 12:00 02/09/17 17:33 02/09/17 05:35 Intake and Output: 02/09/17 02/09/17 06:59 18:59 Intake Total 0 Balance 0 - Medications Medications: Current Medications Hydromorphone HCl (Dilaudid) 1 mg IVP Q4H PRN PRN Reason: Pain, severe (8-10) Last Admin: 02/09/17 17:32 Dose: 1 mg Erythromycin 250 mg/ Sodium (Chloride) 100 mls @ 100 mls/hr IVPB Q6 [facility] Last Admin: 02/09/17 17:33 Dose: 100 mls/hr Sodium Chloride (Sodium Chloride 0.9%) 1,000 mls @ 125 mls/hr IV .Q8H [facility] Last Admin: 02/09/17 08:30 Dose: 125 mls/hr Insulin Detemir (Levemir) 30 unit SC HS [facility] Last Admin: 02/08/17 23:32 Dose: 30 unit Insulin Human Lispro (Humalog Low) 0 units SC ACHS [facility] PRN Reason: Protocol Last Admin: 02/09/17 17:26 Dose: Not Given Lorazepam (Ativan) 0.5 mg IVP Q4 PRN; Protocol PRN Reason: Anxiety Last Admin: 02/09/17 15:28 Dose: 0.5 mg Metoprolol Tartrate (Lopressor) 25 mg PO BID [facility] Last Admin: 02/09/17 17:33 Dose: 25 mg Ondansetron HCl (Zofran Inj) 4 mg IVP Q4 [facility] Last Admin: 02/09/17 16:31 Dose: Not Given Pantoprazole Sodium (Protonix Inj) 40 mg IVP Q12 [facility] Last Admin: 02/09/17 10:30 Dose: 40 mg - Labs Labs: 02/09/17 08:50 02/09/17 08:50 - Constitutional Appears: Non-toxic, No Acute Distress - Head Exam Head Exam: ATRAUMATIC, NORMOCEPHALIC - Eye Exam Eye Exam: EOMI - ENT Exam ENT Exam: Mucous Membranes Moist - Neck Exam Neck Exam: Full ROM. absent: Lymphadenopathy - Respiratory Exam Respiratory Exam: Clear to Ausculation Bilateral, NORMAL BREATHING PATTERN - Cardiovascular Exam Cardiovascular Exam: REGULAR RHYTHM, +S1, +S2. absent: JVD - GI/Abdominal Exam GI & Abdominal Exam: Soft, Tenderness, Normal Bowel Sounds - Extremities Exam Extremities Exam: Full ROM. absent: Joint Swelling, Pedal Edema - Back Exam Back Exam: NORMAL INSPECTION. absent: CVA tenderness (L), CVA tenderness (R), paraspinal tenderness - Neurological Exam Neurological Exam: Alert, Awake, Oriented x3 - Psychiatric Exam Psychiatric exam: Normal Affect, Normal Mood - Skin Skin Exam: Dry, Intact, Normal Color, Warm Assessment and Plan - Assessment and Plan (Free Text) Assessment: 41 year old female, whose past medical history includes gastroparesis, DM-1, hypertension, gastritis (neg H pylori nov 2016), gastric/duodenal ulcers, and GERD, admitted for intractable epigastric pain with nausea and vomiting x 1 day. Plan: Intractable abdominal pain with nausea and vomiting Hx gastritis and gastric/duodenal ulcers Dehydration - clear liquid diet, IVF - (home) Protonix 40mg IVP BID - (home) Zofran 4 q4 PRN - Dilaudid 1mg IVP Q4H PRN - r/o cardiac cause serial cardiac enzyme - troponins negative x3 - EKG sinus tachy otherwise normal - CXR - no active disease, heart normal - GI consult - Dr. Gomez - appreciate recs RUQ Abdominal Pain - Total bili elevated at 1.4; direct bili .5 - Normal LFT, lipase 36 - abdominal ultrasound - GB is diminutive and/or contracted likely due to nonfasting state - please see full report - no sonographic Jackson sign, common bile duct measures 4.2mm - no evidence of pancreatic ductal dilation Diabetic Gastroparesis, refractory - HOME: erythromycin 250 mgIV QID - QTc 453 CK elevated at 322; Negative urine bilirubin; (+) urine RBC - likely muscle breakdown from decrease PO intake - IVF 125mls/hr Diabetes type 1, last A1C 11.3 on 02/08/17, uncontrolled - Home Levemir 30 HS - ISSS - increased to med - Blood sugar 01/12 237 Proteinuria - Renal consult - Dr. De La Paz - appreciate recs -anion gap 21, bicarb 20, ketones in urine, could suggest early diabetic ketoacidosis -once pt. is feeling better start KEIRA, target HgA1C 6.5% -intensify insulin therapy - BP control Nomocytic Anemia, chronic - Occult blood in vomitus and stool HTN - (home) metoprolol 25 BID Prophylactic Measures - GI PPX Protonix - DVT PPX: SCD <Daylin Ziegler - Last Filed: 02/10/17 16:54> Objective - Vital Signs/Intake and Output Vital Signs (last 24 hours): Temp Pulse Resp BP Pulse Ox 98.4 F 116 H 20 143/88 100 02/10/17 09:15 02/10/17 09:15 02/10/17 09:15 02/10/17 09:15 02/10/17 09:15 Intake and Output: 02/10/17 02/10/17 06:59 18:59 Intake Total 620 Output Total 620 Balance 0 - Medications Medications: Current Medications Hydromorphone HCl (Dilaudid) 1 mg IVP Q4H PRN PRN Reason: Pain, severe (8-10) Last Admin: 02/10/17 13:35 Dose: 1 mg Sodium Chloride (Sodium Chloride 0.9%) 1,000 mls @ 125 mls/hr IV .Q8H [facility] Last Admin: 02/10/17 11:53 Dose: 125 mls/hr Insulin Detemir (Levemir) 30 unit SC HS [facility] Last Admin: 02/09/17 22:12 Dose: 30 unit Insulin Human Lispro (Humalog Med) 0 units SC ACHS [facility] PRN Reason: Protocol Last Admin: 02/10/17 11:44 Dose: Not Given Lorazepam (Ativan) 0.5 mg IVP Q4 PRN; Protocol PRN Reason: Anxiety Last Admin: 02/10/17 11:53 Dose: 0.5 mg Metoprolol Tartrate (Lopressor) 25 mg PO BID [facility] Last Admin: 02/10/17 09:30 Dose: 25 mg Ondansetron HCl (Zofran Inj) 4 mg IVP Q4 [facility] Last Admin: 02/10/17 12:01 Dose: Not Given Pantoprazole Sodium (Protonix Inj) 40 mg IVP Q12 [facility] Last Admin: 02/10/17 09:35 Dose: 40 mg Sucralfate (Carafate Oral Susp) 1 gm PO QID [facility] Last Admin: 02/10/17 13:35 Dose: 1 gm - Labs Labs: 02/10/17 06:30 02/10/17 06:30 Assessment and Plan - Assessment and Plan (Free Text) Assessment: attending note; patient seen and examined with resident. patient is a 41-year-old type I diabetic patient is admitted with recurrent gastroparesis. Currently on IV Zofran. Also treated with erythromycin. Case discussed with GI Dr. Gomez in detail. History of gastric ulcer. Needs repeat EGD in few weeks. Currently nothing by mouth. Continue IV fluids. Pain management with Dilaudid. side effects of pain medication including ileus, bowel obstruction,worsening of gastroparesis explained in detail. [facility] as per patient. Patient will follow up with PMD Dr. Theodore upon discharge. Attending/Attestation - Attestation I have personally seen and examined this patient.: Yes I have fully participated in the care of the patient.: Yes I have reviewed all pertinent clinical information, including history, physical exam and plan: Yes
[2017-02-09] MEDS: Sucralfate 1 gm/10 ml Oral Susp UD PO SCH (21:48)
[2017-02-09] MEDS: Insulin Detemir 100 units/ml Vial (Levemir) SC SCH (22:12)
[2017-02-09] MEDS: Insulin Lispro (humaLOG) MEDIUM Coverage SC SCH (22:13)
--- NOTE | 2017-02-09 23:53 | CP.PCM.PN ---
Subjective - Date & Time of Evaluation Date of Evaluation: 02/09/17 Time of Evaluation: 23:53 - Subjective Subjective: # 24 angiocath was inserted in left hand. Dx:Poor venous access. Objective - Vital Signs/Intake and Output Vital Signs (last 24 hours): Temp Pulse Resp BP Pulse Ox 98.6 F 107 H 18 128/82 100 02/09/17 18:00 02/09/17 18:00 02/09/17 18:00 02/09/17 18:00 02/09/17 05:35 Intake and Output: 02/09/17 02/10/17 18:59 06:59 Intake Total 0 Balance 0 - Medications Medications: Current Medications Hydromorphone HCl (Dilaudid) 1 mg IVP Q4H PRN PRN Reason: Pain, severe (8-10) Last Admin: 02/09/17 21:48 Dose: 1 mg Erythromycin 250 mg/ Sodium (Chloride) 100 mls @ 100 mls/hr IVPB Q6 [facility] Last Admin: 02/09/17 17:33 Dose: 100 mls/hr Sodium Chloride (Sodium Chloride 0.9%) 1,000 mls @ 125 mls/hr IV .Q8H [facility] Last Admin: 02/09/17 08:30 Dose: 125 mls/hr Insulin Detemir (Levemir) 30 unit SC HS [facility] Last Admin: 02/09/17 22:12 Dose: 30 unit Insulin Human Lispro (Humalog Med) 0 units SC ACHS [facility] PRN Reason: Protocol Last Admin: 02/09/17 22:13 Dose: Not Given Lorazepam (Ativan) 0.5 mg IVP Q4 PRN; Protocol PRN Reason: Anxiety Last Admin: 02/09/17 15:28 Dose: 0.5 mg Metoprolol Tartrate (Lopressor) 25 mg PO BID [facility] Last Admin: 02/09/17 17:33 Dose: 25 mg Ondansetron HCl (Zofran Inj) 4 mg IVP Q4 [facility] Last Admin: 02/09/17 21:49 Dose: 4 mg Pantoprazole Sodium (Protonix Inj) 40 mg IVP Q12 [facility] Last Admin: 02/09/17 21:48 Dose: 40 mg Sucralfate (Carafate Oral Susp) 1 gm PO QID [facility] Last Admin: 02/09/17 21:48 Dose: 1 gm - Labs Labs: 02/09/17 08:50 02/09/17 08:50
[2017-02-10] MEDS: HYDROmorphone 1 mg/ml ISec IVP PRN ×5 (01:54→21:56)
[2017-02-10 07:00] LABS: ADD MANUAL DIFF? NO
[2017-02-10 07:15] LABS: BASO # 0.01 [, K/mm3] (0.0-2.0); BASO % 0.1 % (0.0-3.0); EOS % 0.3 % (1.5-5.0); GRAN # 4.62 (1.4-6.5); HEMATOCRIT 32.5 % (36.0-48.0); LYMPH # 1.6 (1.2-3.4); LYMPH % 23.5 % (22.0-35.0); MEAN CELL VOLUME 83.8 fL (80.0-105.0); MEAN CORPUSCULAR HEMOGLOBIN 27.3 pg (25.0-35.0); MEAN CORPUSCULAR HGB CONC 32.6 g/dl (31.0-37.0); MEAN PLATELET VOLUME 10.3 fl (7.0-11.0); MONO # 0.6 (0.1-0.6); MONO % 9.1 % (1.0-6.0); PLATELET COUNT 215 [, 10^3/uL] (120.0-450.0); RED CELL DISTRIBUTION WIDTH 15.3 % (11.5-14.5); WHITE BLOOD COUNT 6.9 [, 10^3/ul] (4.5-11.0)
[2017-02-10] MEDS: Insulin Lispro (humaLOG) MEDIUM Coverage SC SCH ×4 (07:30→21:49)
[2017-02-10] MEDS: Sucralfate 1 gm/10 ml Oral Susp UD PO SCH ×4 (09:30→21:55)
[2017-02-10 09:40] LABS: ALKALINE PHOSPHATASE 78 U/L (38-133); ALT/SGPT 18 U/L (7-56); AST/SGOT 34 U/L (15-39); BILIRUBIN,TOTAL 1.2 mg/dL (0.2-1.3); BLOOD UREA NITROGEN 16 mg/dL (7-21); CALCIUM 9.2 mg/dL (8.4-10.5); CARBON DIOXIDE 21 mmol/L (21-33); CHLORIDE 111 mmol/L (98-107); GFR AFRICAN-AMERICAN > 60; GLUCOSE,RANDOM 90 mg/dL (70-110); SODIUM 143 mmol/L (132-148); TOTAL PROTEIN 7.6 g/dL (5.8-8.3)
[2017-02-10 09:45] LABS: POTASSIUM 3.6 mmol/L (3.6-5.0)
[2017-02-10] MEDS: Sodium Chloride 0.9% 1,000 ML IV SCH ×3 (11:53→21:18)
--- NOTE | 2017-02-10 13:42 | CP.PCM.PN ---
<Timmy Crump - Last Filed: 02/10/17 20:51> Subjective - Date & Time of Evaluation Date of Evaluation: 02/10/17 Time of Evaluation: 07:30 - Subjective Subjective: 41 year old female, with pmh of gastroparesis, DM-1, hypertension, gastritis ( neg H pylori nov 2016), gastric/duodenal ulcers, and GERD, who presents to the emergency department complaining of epigastric pain with nausea and vomiting x 1 day. Today she is improving and the pain medications are managing her symptoms. She denies headache, dizziness, chest pain, difficulty breathing, nausea, vomiting, or diarrhea. Objective - Vital Signs/Intake and Output Vital Signs (last 24 hours): Temp Pulse Resp BP Pulse Ox 98.4 F 116 H 20 143/88 100 02/10/17 09:15 02/10/17 09:15 02/10/17 09:15 02/10/17 09:15 02/10/17 09:15 - Medications Medications: Current Medications Hydromorphone HCl (Dilaudid) 1 mg IVP Q4H PRN PRN Reason: Pain, severe (8-10) Last Admin: 02/10/17 13:35 Dose: 1 mg Erythromycin 250 mg/ Sodium (Chloride) 100 mls @ 100 mls/hr IVPB Q6 [facility] Last Admin: 02/10/17 11:52 Dose: 100 mls/hr Sodium Chloride (Sodium Chloride 0.9%) 1,000 mls @ 125 mls/hr IV .Q8H [facility] Last Admin: 02/10/17 11:53 Dose: 125 mls/hr Insulin Detemir (Levemir) 30 unit SC HS [facility] Last Admin: 02/09/17 22:12 Dose: 30 unit Insulin Human Lispro (Humalog Med) 0 units SC ACHS MICHELLE PRN Reason: Protocol Last Admin: 02/10/17 11:44 Dose: Not Given Lorazepam (Ativan) 0.5 mg IVP Q4 PRN; Protocol PRN Reason: Anxiety Last Admin: 02/10/17 11:53 Dose: 0.5 mg Metoprolol Tartrate (Lopressor) 25 mg PO BID [facility] Last Admin: 02/10/17 09:30 Dose: 25 mg Ondansetron HCl (Zofran Inj) 4 mg IVP Q4 [facility] Last Admin: 02/10/17 12:01 Dose: Not Given Pantoprazole Sodium (Protonix Inj) 40 mg IVP Q12 [facility] Last Admin: 02/10/17 09:35 Dose: 40 mg Sucralfate (Carafate Oral Susp) 1 gm PO QID [facility] Last Admin: 02/10/17 13:35 Dose: 1 gm - Labs Labs: 02/10/17 06:30 02/10/17 06:30 - Constitutional Appears: Non-toxic, No Acute Distress - Head Exam Head Exam: ATRAUMATIC - Eye Exam Eye Exam: EOMI - ENT Exam ENT Exam: Mucous Membranes Moist - Respiratory Exam Respiratory Exam: Clear to Ausculation Bilateral, NORMAL BREATHING PATTERN. absent: Rhonchi, Wheezes - Cardiovascular Exam Cardiovascular Exam: REGULAR RHYTHM, +S1, +S2. absent: JVD - GI/Abdominal Exam GI & Abdominal Exam: Soft, Normal Bowel Sounds. absent: Tenderness - Extremities Exam Extremities Exam: Full ROM. absent: Joint Swelling, Pedal Edema - Back Exam Back Exam: NORMAL INSPECTION. absent: CVA tenderness (L), CVA tenderness (R) - Neurological Exam Neurological Exam: Alert, Awake, Oriented x3 - Psychiatric Exam Psychiatric exam: Normal Affect, Normal Mood - Skin Skin Exam: Dry, Intact, Normal Color, Warm Assessment and Plan - Assessment and Plan (Free Text) Assessment: 41 year old female, whose past medical history includes gastroparesis, DM-1, admitted for intractable epigastric pain with nausea and vomiting. Plan: Intractable abdominal pain with nausea and vomiting Hx gastritis and gastric/duodenal ulcers Dehydration - clear liquid diet, IVF, start full liquids on 02/11 breakfast - Protonix 40mg IVP BID - Zofran 4 q4 PRN - Dilaudid 1mg IVP Q4H PRN - r/o cardiac cause serial cardiac enzyme - troponins negative x3 - EKG sinus tachy otherwise normal - CXR - no active disease, heart normal - GI consult - Dr. Gomez - appreciate recs RUQ Abdominal Pain - Total bili elevated at 1.4; direct bili .5 - Normal LFT, lipase 36 - abdominal ultrasound - GB is diminutive and/or contracted likely due to nonfasting state - please see full report - no sonographic Jackson sign, common bile duct measures 4.2mm - no evidence of pancreatic ductal dilation Diabetic Gastroparesis, refractory - QTc 453 CK elevated at 322; Negative urine bilirubin; (+) urine RBC - likely muscle breakdown from decrease PO intake - decreased IVF to 75mls/hr Diabetes type 1, last A1C 11.3 on 02/08/17, uncontrolled - ISSS - increased to med - Blood sugars 02/10; 76-119 Proteinuria - Renal consult - Dr. De La Paz - appreciate recs -anion gap 21, bicarb 20, ketones in urine, could suggest early diabetic ketoacidosis -once pt. is feeling better start KEIRA, target HgA1C 6.5% -intensify insulin therapy HTN - metoprolol 25 BID Prophylactic Measures - GI PPX Protonix - DVT PPX: SCD <Rangasamy,Ajantha - Last Filed: 02/11/17 16:16> Objective - Vital Signs/Intake and Output Vital Signs (last 24 hours): Temp Pulse Resp BP Pulse Ox 98.3 F 100 H 20 125/80 98 02/11/17 08:00 02/11/17 10:02 02/11/17 08:00 02/11/17 10:02 02/11/17 08:00 Intake and Output: 02/11/17 02/11/17 06:59 18:59 Intake Total 1500 Balance 1500 - Medications Medications: Current Medications Hydromorphone HCl (Dilaudid) 1 mg IVP Q4H PRN PRN Reason: Pain, severe (8-10) Last Admin: 02/11/17 07:52 Dose: 1 mg Sodium Chloride (Sodium Chloride 0.9%) 1,000 mls @ 75 mls/hr IV .Q19O20P [facility] Last Admin: 02/11/17 04:36 Dose: 75 mls/hr Insulin Detemir (Levemir) 30 unit SC HS [facility] Last Admin: 02/10/17 21:56 Dose: 30 unit Insulin Human Lispro (Humalog Med) 0 units SC ACHS [facility] PRN Reason: Protocol Last Admin: 02/11/17 12:08 Dose: Not Given Lorazepam (Ativan) 0.5 mg IVP Q4 PRN; Protocol PRN Reason: Anxiety Last Admin: 02/11/17 14:44 Dose: 0.5 mg Metoprolol Tartrate (Lopressor) 25 mg PO BID [facility] Last Admin: 02/11/17 10:02 Dose: 25 mg Ondansetron HCl (Zofran Inj) 4 mg IVP Q4 [facility] Last Admin: 02/11/17 12:00 Dose: Not Given Pantoprazole Sodium (Protonix Inj) 40 mg IVP Q12 [facility] Last Admin: 02/11/17 10:02 Dose: 40 mg Sucralfate (Carafate Oral Susp) 1 gm PO QID [facility] Last Admin: 02/11/17 14:07 Dose: 1 gm - Labs Labs: 02/11/17 08:03 02/11/17 08:03 Assessment and Plan - Assessment and Plan (Free Text) Assessment: attending note; patient seen and examined with resident. patient is a 41-year-old type I diabetic patient is admitted with recurrent gastroparesis. Currently on IV Zofran. Also treated with erythromycin. Case discussed with GI Dr. Gomez in detail. History of gastric ulcer. Needs repeat EGD in few weeks. started on clear liquid diet. Advance as tolerated. Pain management with Dilaudid. side effects of pain medication including ileus, bowel obstruction,worsening of gastroparesis explained in detail. Patient has appointment with [facility] tailor fitter for Botox injection on February 24 as per patient. Patient will follow up with PMD Dr. Theodore upon discharge. Attending/Attestation - Attestation I have personally seen and examined this patient.: Yes I have fully participated in the care of the patient.: Yes I have reviewed all pertinent clinical information, including history, physical exam and plan: Yes
[2017-02-10 18:39] VITALS: TEMP 98.3
[2017-02-10] MEDS: Insulin Detemir 100 units/ml Vial (Levemir) SC SCH (21:56)
[2017-02-11] MEDS: HYDROmorphone 1 mg/ml ISec IVP PRN ×2 (02:25→07:52)
[2017-02-11] MEDS: Sodium Chloride 0.9% 1,000 ML IV SCH (04:36)
[2017-02-11] MEDS: Sucralfate 1 gm/10 ml Oral Susp UD PO SCH ×3 (07:52→14:07)
[2017-02-11] MEDS: Insulin Lispro (humaLOG) MEDIUM Coverage SC SCH ×2 (08:01→12:08)
[2017-02-11 08:06] LABS: ADD MANUAL DIFF? NO
[2017-02-11 08:08] VITALS: BP 125/80; RESP 20; O2SAT 98
[2017-02-11 08:24] LABS: BASO # 0.01 [, K/mm3] (0.0-2.0); BASO % 0.2 % (0.0-3.0); EOS # 0.1 (0.0-0.7); GRAN # 3.38 (1.4-6.5); GRAN % 53.4 % (50.0-68.0); HEMATOCRIT 33.4 % (36.0-48.0); LYMPH # 2.3 (1.2-3.4); LYMPH % 36.8 % (22.0-35.0); MEAN CELL VOLUME 82.5 fL (80.0-105.0); MEAN CORPUSCULAR HEMOGLOBIN 26.7 pg (25.0-35.0); MEAN CORPUSCULAR HGB CONC 32.3 g/dl (31.0-37.0); MEAN PLATELET VOLUME 8.9 fl (7.0-11.0); MONO # 0.5 (0.1-0.6); MONO % 8.6 % (1.0-6.0); PLATELET COUNT 399 [, 10^3/uL] (120.0-450.0); RED CELL DISTRIBUTION WIDTH 14.9 % (11.5-14.5); WHITE BLOOD COUNT 6.3 [, 10^3/ul] (4.5-11.0)
[2017-02-11 08:38] LABS: ALKALINE PHOSPHATASE 84 U/L (38-133); ALT/SGPT 25 U/L (7-56); AST/SGOT 29 U/L (15-39); BILIRUBIN,TOTAL 1.1 mg/dL (0.2-1.3); BLOOD UREA NITROGEN 7 mg/dL (7-21); CARBON DIOXIDE 25 mmol/L (21-33); CHLORIDE 104 mmol/L (98-107); GFR AFRICAN-AMERICAN > 60; GLUCOSE,RANDOM 81 mg/dL (70-110); POTASSIUM 3.4 mmol/L (3.6-5.0); SODIUM 141 mmol/L (132-148); TOTAL PROTEIN 7.8 g/dL (5.8-8.3)
[2017-02-11 10:12] VITALS: PULSE 100
--- NOTE | 2017-02-11 11:24 | CP.PCM.DIS ---
<CrumpDavidTimmy - Last Filed: 02/12/17 12:58> Provider - Provider Date of Admission: 02/09/17 08:02 Attending physician: Daylin Ziegler MD Primary care physician: David Theodore DO Time Spent in preparation of Discharge (in minutes): 35 Diagnosis - Discharge Diagnosis (1) Gastroparesis Status: Acute Hospital Course - Lab Results Lab Results: Most Recent Lab Values WBC 6.3 10^3/ul (4.5-11.0) 02/11/17 08:03 RBC 4.05 10^6/uL (3.5-6.1) 02/11/17 08:03 Hgb 10.8 gm/dL (12.0-16.0) L 02/11/17 08:03 Hct 33.4 % (36.0-48.0) L 02/11/17 08:03 MCV 82.5 fL (80.0-105.0) 02/11/17 08:03 MCH 26.7 pg (25.0-35.0) 02/11/17 08:03 MCHC 32.3 g/dl (31.0-37.0) 02/11/17 08:03 RDW 14.9 % (11.5-14.5) H 02/11/17 08:03 Plt Count 399 10^3/uL (120.0-450.0) 02/11/17 08:03 MPV 8.9 fl (7.0-11.0) 02/11/17 08:03 Gran % 53.4 % (50.0-68.0) 02/11/17 08:03 Lymph % (Auto) 36.8 % (22.0-35.0) H 02/11/17 08:03 [place] % (Auto) 8.6 % (1.0-6.0) H 02/11/17 08:03 Eos % (Auto) 1.0 % (1.5-5.0) L 02/11/17 08:03 Baso % (Auto) 0.2 % (0.0-3.0) 02/11/17 08:03 Gran # 3.38 (1.4-6.5) 02/11/17 08:03 Lymph # 2.3 (1.2-3.4) 02/11/17 08:03 [place] # 0.5 (0.1-0.6) 02/11/17 08:03 Eos # 0.1 (0.0-0.7) 02/11/17 08:03 Baso # 0.01 K/mm3 (0.0-2.0) 02/11/17 08:03 Sodium 141 mmol/L (132-148) 02/11/17 08:03 Potassium 3.4 mmol/L (3.6-5.0) L 02/11/17 08:03 Chloride 104 mmol/L (98-107) 02/11/17 08:03 Carbon Dioxide 25 mmol/L (21-33) 02/11/17 08:03 Anion Gap 15 (10-20) 02/11/17 08:03 BUN 7 mg/dL (7-21) 02/11/17 08:03 Creatinine 0.7 mg/dL (0.5-1.4) 02/11/17 08:03 Est GFR ( Amer) > 60 02/11/17 08:03 Est GFR (Non-Af Amer) > 60 02/11/17 08:03 POC Glucose (mg/dL) 105 mg/dL (65-110) 02/09/17 16:26 Random Glucose 81 mg/dL (70-110) 02/11/17 08:03 Hemoglobin A1c 11.3 % (4.2-6.5) H 02/08/17 09:00 Calcium 9.0 mg/dL (8.4-10.5) 02/11/17 08:03 Total Bilirubin 1.1 mg/dL (0.2-1.3) 02/11/17 08:03 Direct Bilirubin 0.5 mg/dL (0.0-0.4) H 02/08/17 09:00 AST 29 U/L (15-39) 02/11/17 08:03 ALT 25 U/L (7-56) 02/11/17 08:03 Alkaline Phosphatase 84 U/L (38-133) 02/11/17 08:03 Lactate Dehydrogenase 548 U/L (333-699) 02/08/17 17:07 Total Creatine Kinase 234 U/L (35-230) H 02/08/17 17:07 CK-MB (CK-2) 2.1 ng/mL (0.0-3.6) 02/08/17 17:07 CK-MB (CK-2) % Cancelled 02/07/17 23:00 Troponin I < 0.01 ng/mL D 02/08/17 17:07 Total Protein 7.8 g/dL (5.8-8.3) 02/11/17 08:03 Albumin 3.8 g/dL (3.0-4.8) 02/11/17 08:03 Globulin 3.9 gm/dL 02/11/17 08:03 Albumin/Globulin Ratio 1.0 (1.1-1.8) L 02/11/17 08:03 Lipase 36 U/L (23-300) 02/07/17 23:00 Urine Color Yellow (YELLOW) 02/07/17 23:00 Urine Appearance Slight-cloudy (CLEAR) 02/07/17 23:00 Urine pH 6.0 (4.7-8.0) 02/07/17 23:00 Ur Specific [place] Ari 1.025 (1.005-1.035) 02/07/17 23:00 Urine Protein 30 mg/dL (<30 mg/dL) H 02/07/17 23:00 Urine Glucose (UA) >=1000 mg/dL (NEGATIVE) 02/07/17 23:00 Urine Ketones 15 mg/dL (NEGATIVE) H 02/07/17 23:00 Urine Blood Small (NEGATIVE) H 02/07/17 23:00 Urine Nitrate Negative (NEGATIVE) 02/07/17 23:00 Urine Bilirubin Negative (NEGATIVE) 02/07/17 23:00 Urine Urobilinogen 0.2 E.U./dL (<1 E.U./dL) 02/07/17 23:00 Ur Leukocyte Esterase Negative Bro/uL (NEGATIVE) 02/07/17 23:00 Urine RBC 1 - 3 /hpf (0-2) 02/07/17 23:00 Urine WBC 1 - 3 /hpf (0-6) 02/07/17 23:00 Ur Epithelial Cells 1 - 3 /hpf (0-5) 02/07/17 23:00 Urine Bacteria Occ (NEG) 02/07/17 23:00 Urine HCG, Qual Negative (NEGATIVE) 02/07/17 23:00 Emesis for Blood Positive (NEGATIVE) H 02/08/17 05:50 - Hospital Course Hospital Course: Admission: Med Surge observation gastroparesis and intractable vomiting. 41 year old female, whose past medical history includes gastroparesis, DM-1, hypertension, gastritis (neg H pylori nov 2016), gastric/duodenal ulcers, and GERD, who presents to the emergency department complaining of epigastric pain with nausea and vomiting x 1 day. Patient admitted in last month for similar symptoms and treatment of gastroparesis. EKG showed sinus tachycardia at 122 bpm with no acute changes and chest X-ray shows no active disease. Abdominal US showed normal size liver, no evidence of gall bladder calculi, pericholecystic fluid or sonographic Alona sign, and pancreas was grossly unremarkable with no evidence of pancreatic ductal dilation. She was started on IV fluids, given medication for pain, started on insulin, erythromycin for gastric motility, pepcid, and zofran. Over her stay, she improved and her diet was advanced. GI was consulted and recommend to continue current management, stop erythromycin, and follow up in several months for another EGD. Nephrology was consulted for proteinurea and recommended to intensify her insulin regimen and add an KEIRA inhibitor when she improves. On day of discharge, she was able to tolerate a regular diet. This is a brief account of her stay. For more details please see her chart. - Date & Time of H&P Date of H&P: 02/11/17 Time of H&P: 09:35 Discharge Exam - Head Exam Head Exam: ATRAUMATIC - Eye Exam Eye Exam: EOMI - ENT Exam ENT Exam: Mucous Membranes Moist - Neck Exam Neck exam: Full Rom - Respiratory Exam Respiratory Exam: NORMAL BREATHING PATTERN, UNREMARKABLE - Cardiovascular Exam Cardiovascular Exam: REGULAR RHYTHM, RRR, +S1, +S2. absent: JVD - GI/Abdominal Exam GI & Abdominal Exam: Normal Bowel Sounds, Soft, Unremarkable. absent: Tenderness - Extremities Exam Extremities exam: full ROM - Back Exam Back exam: FULL ROM. absent: CVA tenderness (L), CVA tenderness (R), rash noted - Neurological Exam Neurological exam: Alert, Oriented x3 - Psychiatric Exam Psychiatric exam: Normal Affect, Normal Mood - Skin Skin Exam: Dry, Intact, Normal Color, Warm Discharge Plan - Discharge Medications Prescriptions: Lorazepam [Ativan] 0.5 mg PO BID #10 tab Sucralfate [Carafate] 1 gm PO BID #10 tablet Pantoprazole Sodium [Protonix] 40 mg PO DAILY #30 ect Ondansetron HCl [Zofran] 4 mg PO Q6 #12 tablet - Follow Up Plan Condition: STABLE Disposition: HOME/ ROUTINE Instructions: Pneumococcal Vaccine for Adults (DC), Diabetes Mellitus Type 2 in Adults (DC), Influenza Vaccine (DC), Acute Abdominal Pain (DC), Acute Abdominal Pain (GEN), Gastroparesis (DC) Additional Instructions: Pt. is medically stable for discharge. Please restart your home medications. Please follow up with your primary care doctor within one week. Please return to hospital if your symptoms return or any new concerning symptoms arise. Referrals: David Theodore DO [Primary Care Provider] - <Daylin Ziegler - Last Filed: 02/12/17 14:05> Provider - Provider Date of Admission: 02/09/17 08:02 Attending physician: Daylin Ziegler MD Primary care physician: David Theodore DO Time Spent in preparation of Discharge (in minutes): 35 Hospital Course - Lab Results Lab Results: Most Recent Lab Values WBC 6.3 10^3/ul (4.5-11.0) 02/11/17 08:03 RBC 4.05 10^6/uL (3.5-6.1) 02/11/17 08:03 Hgb 10.8 gm/dL (12.0-16.0) L 02/11/17 08:03 Hct 33.4 % (36.0-48.0) L 02/11/17 08:03 MCV 82.5 fL (80.0-105.0) 02/11/17 08:03 MCH 26.7 pg (25.0-35.0) 02/11/17 08:03 MCHC 32.3 g/dl (31.0-37.0) 02/11/17 08:03 RDW 14.9 % (11.5-14.5) H 02/11/17 08:03 Plt Count 399 10^3/uL (120.0-450.0) 02/11/17 08:03 MPV 8.9 fl (7.0-11.0) 02/11/17 08:03 Gran % 53.4 % (50.0-68.0) 02/11/17 08:03 Lymph % (Auto) 36.8 % (22.0-35.0) H 02/11/17 08:03 [place] % (Auto) 8.6 % (1.0-6.0) H 02/11/17 08:03 Eos % (Auto) 1.0 % (1.5-5.0) L 02/11/17 08:03 Baso % (Auto) 0.2 % (0.0-3.0) 02/11/17 08:03 Gran # 3.38 (1.4-6.5) 02/11/17 08:03 Lymph # 2.3 (1.2-3.4) 02/11/17 08:03 [place] # 0.5 (0.1-0.6) 02/11/17 08:03 Eos # 0.1 (0.0-0.7) 02/11/17 08:03 Baso # 0.01 K/mm3 (0.0-2.0) 02/11/17 08:03 Sodium 141 mmol/L (132-148) 02/11/17 08:03 Potassium 3.4 mmol/L (3.6-5.0) L 02/11/17 08:03 Chloride 104 mmol/L (98-107) 02/11/17 08:03 Carbon Dioxide 25 mmol/L (21-33) 02/11/17 08:03 Anion Gap 15 (10-20) 02/11/17 08:03 BUN 7 mg/dL (7-21) 02/11/17 08:03 Creatinine 0.7 mg/dL (0.5-1.4) 02/11/17 08:03 Est GFR ( Amer) > 60 02/11/17 08:03 Est GFR (Non-Af Amer) > 60 02/11/17 08:03 POC Glucose (mg/dL) 105 mg/dL (65-110) 02/09/17 16:26 Random Glucose 81 mg/dL (70-110) 02/11/17 08:03 Hemoglobin A1c 11.3 % (4.2-6.5) H 02/08/17 09:00 Calcium 9.0 mg/dL (8.4-10.5) 02/11/17 08:03 Total Bilirubin 1.1 mg/dL (0.2-1.3) 02/11/17 08:03 Direct Bilirubin 0.5 mg/dL (0.0-0.4) H 02/08/17 09:00 AST 29 U/L (15-39) 02/11/17 08:03 ALT 25 U/L (7-56) 02/11/17 08:03 Alkaline Phosphatase 84 U/L (38-133) 02/11/17 08:03 Lactate Dehydrogenase 548 U/L (333-699) 02/08/17 17:07 Total Creatine Kinase 234 U/L (35-230) H 02/08/17 17:07 CK-MB (CK-2) 2.1 ng/mL (0.0-3.6) 02/08/17 17:07 CK-MB (CK-2) % Cancelled 02/07/17 23:00 Troponin I < 0.01 ng/mL D 02/08/17 17:07 Total Protein 7.8 g/dL (5.8-8.3) 02/11/17 08:03 Albumin 3.8 g/dL (3.0-4.8) 02/11/17 08:03 Globulin 3.9 gm/dL 02/11/17 08:03 Albumin/Globulin Ratio 1.0 (1.1-1.8) L 02/11/17 08:03 Lipase 36 U/L (23-300) 02/07/17 23:00 Urine Color Yellow (YELLOW) 02/07/17 23:00 Urine Appearance Slight-cloudy (CLEAR) 02/07/17 23:00 Urine pH 6.0 (4.7-8.0) 02/07/17 23:00 Ur Specific [place] Ari 1.025 (1.005-1.035) 02/07/17 23:00 Urine Protein 30 mg/dL (<30 mg/dL) H 02/07/17 23:00 Urine Glucose (UA) >=1000 mg/dL (NEGATIVE) 02/07/17 23:00 Urine Ketones 15 mg/dL (NEGATIVE) H 02/07/17 23:00 Urine Blood Small (NEGATIVE) H 02/07/17 23:00 Urine Nitrate Negative (NEGATIVE) 02/07/17 23:00 Urine Bilirubin Negative (NEGATIVE) 02/07/17 23:00 Urine Urobilinogen 0.2 E.U./dL (<1 E.U./dL) 02/07/17 23:00 Ur Leukocyte Esterase Negative Bro/uL (NEGATIVE) 02/07/17 23:00 Urine RBC 1 - 3 /hpf (0-2) 02/07/17 23:00 Urine WBC 1 - 3 /hpf (0-6) 02/07/17 23:00 Ur Epithelial Cells 1 - 3 /hpf (0-5) 02/07/17 23:00 Urine Bacteria Occ (NEG) 02/07/17 23:00 Urine HCG, Qual Negative (NEGATIVE) 02/07/17 23:00 Emesis for Blood Positive (NEGATIVE) H 02/08/17 05:50 - Hospital Course Hospital Course: attending note; patient seen and examined with resident. patient is a 41-year-old type I diabetic patient is admitted with recurrent gastroparesis. Treated with IV Zofran and erythromycin. Case discussed with GI Dr. Gomez in detail. History of gastric ulcer. Needs repeat EGD in few weeks. started on clear liquid diet and advanced to soft diet. side effects of pain medication including ileus, bowel obstruction,worsening of gastroparesis explained in detail. Patient has appointment with [facility] bioinformatics associate for Botox injection on February 24 as per patient. Patient will follow up with PMD Dr. Theodore upon discharge. diagnosis; Diabetic gastroparesis Noncompliance with follow-up Opiate dependency
== END 2017-02-11 16:32 | disposition home or self-care (01) | DRG 533 ==
LOC: ED 21:51 → ERH 02-08 00:17 → 2RNO 02-08 04:18 → OBSVTOIN 02-09 08:02 → 5RNO 02-09 20:47
PROVIDERS: ADMIT Internal Medicine; ATTEND Internal Medicine
DX: E10.43 Type 1 diabetes mellitus with diabetic autonomic (poly)neuropathy (principal); J18.9 Pneumonia, unspecified organism; E87.0 Hyperosmolality and hypernatremia; F11.20 Opioid dependence, uncomplicated; K26.9 Duodenal ulcer, unspecified as acute or chronic, without hemorrhage or perforation; E10.65 Type 1 diabetes mellitus with hyperglycemia; N39.0 Urinary tract infection, site not specified; K31.84 Gastroparesis; K22.10 Ulcer of esophagus without bleeding; D64.9 Anemia, unspecified; G89.4 Chronic pain syndrome; I10 Essential (primary) hypertension; K21.9 Gastro-esophageal reflux disease without esophagitis; K25.9 Gastric ulcer, unspecified as acute or chronic, without hemorrhage or perforation; Z82.49 Family history of ischemic heart disease and other diseases of the circulatory system; Z83.3 Family history of diabetes mellitus; Z86.32 Personal history of gestational diabetes; Z79.4 Long term (current) use of insulin; Z87.440 Personal history of urinary (tract) infections; Z87.442 Personal history of urinary calculi; Z91.19 Patient's noncompliance with other medical treatment and regimen; K29.70 Gastritis, unspecified, without bleeding; F41.9 Anxiety disorder, unspecified; Z86.19 Personal history of other infectious and parasitic diseases; R80.9 Proteinuria, unspecified; R91.1 Solitary pulmonary nodule; K27.9 Peptic ulcer, site unspecified, unspecified as acute or chronic, without hemorrhage or perforation

== ENCOUNTER 2017-02-13 14:49 | Inpatient (IN) | payer MEDICAID ==
[2017-02-13] MEDS ORDERED: Sodium Chloride 0.9% 1,000 ML IV STA (15:31)
--- NOTE | 2017-02-13 15:45 | ED PDOC ---
Arrival/HPI - General Historian: Patient <Marietta Hernandez - Last Filed: 02/13/17 16:32> <SaeidLito newberryitriy - Last Filed: 02/13/17 18:06> - General Chief Complaint: Abdominal Pain Time Seen by Provider: 02/13/17 14:58 - History of Present Illness Narrative History of Present Illness (Text): 02/13/17 15:44 41 AA F with PMHx of DM1, HTN, gastritis, gastric and duodenal ulcers and hx of recurrent gastroparesis [place] [facility] [place] with complaints of intractable nausea and vomitting and epigastric pain x 1 day. Pt admitted to approx 10 episodes of nbnb emesis, and epigastric pain with associated back spasms. Pt admits to being recently admitted for similar symptoms. Pt has not had a bm in approx 1 week. Pt denied fever, headaches, dizziness, chills, sob, chest pains, or urinary symptoms. PMD: Dr. Theodore (Marietta Hernandez) Past Medical History - Infectious Disease Hx of Infectious Diseases: None - Tetanus Immunization Tetanus Immunization: Unknown - Past Medical History Past Medical History: No Previous - Cardiac Hx Cardiac Disorders: Yes Hx Hypertension: Yes - Pulmonary Hx Respiratory Disorders: No - Neurological Hx Neurological Disorder: Yes (NEUROPATHY) - HEENT Hx HEENT Disorder: No - Renal Hx Renal Disorder: No - Endocrine/Metabolic Hx Endocrine Disorders: Yes Hx Diabetes Mellitus Type 1: Yes (hx DKA) - Hematological/Oncological Hx Blood Disorders: No - Integumentary Hx Dermatological Disorder: Yes (hx diabetic foor ulcers) - Musculoskeletal/Rheumatological Hx Musculoskeletal Disorders: Yes Hx Falls: No Hx Osteomyelitis: Yes (LEFT FOOT) - Gastrointestinal Hx Gastrointestinal Disorders: Yes (gastritis,gastropoeresis) Hx Gastroesophageal Reflux: Yes - Genitourinary/Gynecological Hx Genitourinary Disorders: No Hx Urinary Tract Infection: Yes - Psychiatric Hx Psychophysiologic Disorder: Yes Hx Anxiety: Yes Hx Substance Use: No - Past Surgical History Past Surgical History: No Previous - Surgical History Hx Amputation: No Hx Appendectomy: No Hx Cardiac Catheterization: No Hx Cholecystectomy: No Hx Gastric Bypass Surgery: No Hx Hysterectomy: No Hx Joint Replacement: No Hx Kidney Transplant: No Hx Liver Transplant: No Hx Mastectomy: No Hx Open Heart Surgery: No Hx Orthopedic Surgery: No Hx Splenectomy: No Hx Valve Replacement: No - Anesthesia Hx Anesthesia: No Hx Anesthesia Reactions: No Hx Malignant Hyperthermia: No - Suicidal Assessment Feels Threatened In Home Enviroment: No <Marietta Hernandez - Last Filed: 02/13/17 16:32> Family/Social History Family/Social History: No Known Family HX Smoking Status: Never Smoked Hx Alcohol Use: No Hx Substance Use: No Hx Substance Use Treatment: No <Marietta Hernandez - Last Filed: 02/13/17 16:32> Allergies/Home Meds <Marietta Hernandez - Last Filed: 02/13/17 16:32> <Alfonso Woody - Last Filed: 02/13/17 18:06> Allergies/Adverse Reactions: Allergies metoclopramide HCl [From Reglan] Adverse Reaction (Verified 02/08/17 00:54) VOMITING Review of Systems - Review of Systems Constitutional: Normal Eyes: Normal ENT: Normal Respiratory: Normal Cardiovascular: Normal Gastrointestinal: Abdominal Pain (epigastric), Nausea, Vomiting Genitourinary Female: Normal Musculoskeletal: Normal Skin: Normal Neurological: Normal Endocrine: Normal Hemo/Lymphatic: Normal Psychiatric: Normal <Marietta Hernandez - Last Filed: 02/13/17 16:32> Physical Exam Temperature: Afebrile Blood Pressure: Normal Pulse: Regular Respiratory Rate: Normal Appearance: Positive for: Well-Appearing, Non-Toxic, Comfortable Pain Distress: None Mental Status: Positive for: Alert and Oriented X 3 Finger Stick Blood Glucose: 162 - Systems Exam Head: Present: Atraumatic, Normocephalic Pupils: Present: PERRL Extroacular Muscles: Present: EOMI Conjunctiva: Present: Normal Mouth: Present: Moist Mucous Membranes Neck: Present: Normal Range of Motion Respiratory/Chest: Present: Clear to Auscultation, Good Air Exchange. No: Respiratory Distress, Accessory Muscle Use Cardiovascular: Present: Regular Rate and Rhythm, Normal S1, S2. No: Murmurs Abdomen: Present: Tenderness, Normal Bowel Sounds. No: Distention Back: Present: Normal Inspection Upper Extremity: Present: Normal Inspection. No: Cyanosis, Edema Lower Extremity: Present: Normal Inspection. No: Edema Neurological: Present: GCS=15, CN II-XII Intact, Speech Normal Skin: Present: Warm Psychiatric: Present: Alert, Oriented x 3, Normal Insight, Normal Concentration <Marietta Hernandez - Last Filed: 02/13/17 16:32> Vital Signs Temp Pulse Resp BP Pulse Ox 02/13/17 17:48 98.0 F 123 H 18 147/79 97 02/13/17 16:16 118 H 18 118/81 97 02/13/17 14:49 97.6 F 127 H 18 121/88 97 Medical Decision Making - EKG Interpretation Interpreted by ED Physician: Yes <Marietta Hernandez - Last Filed: 02/13/17 16:32> <Alfonso Woody - Last Filed: 02/13/17 18:06> ED Course and Treatment: 02/13/17 16:03 41 F presenting [place] [facility] [place] with epigastric abdmonial pain and associated n/v x 1 day - CBC - CMP - UA - EKG - IVF - Toradol - Zofran - Protonix - Reassess and dispo (Marietta Hernandez) Patient was seen and evaluated with resident. Chart reviewed, agree with dispo. Patient's records reviewed. Patient has a history of gastroparesis and opiate dependency. Patient recently [place] [facility] [place] 02/13/17 18:04 pt seen in the ER by Dr. Theodore, accepted to his service (Alfonso Woody) - Lab Interpretations Lab Results: 02/13/17 16:00 02/13/17 16:00 Lab Results 02/13/17 16:00: WBC 8.8 D, RBC 4.32, Hgb 11.7 L, Hct 35.4 L, MCV 81.9, MCH 27.1 , MCHC 33.1, RDW 15.3 H, Plt Count 433, MPV 9.1, Gran % 67.0, Lymph % (Auto) 24.0, [place] % (Auto) 8.3 H, Eos % (Auto) 0.6 L, Baso % (Auto) 0.1, Gran # 5.90, Lymph # 2.1, [place] # 0.7 H, Eos # 0.1, Baso # 0.01, Sodium 141, Potassium 4.9, Chloride 106, Carbon Dioxide 13 L, Anion Gap 27 H, BUN 16, Creatinine 0.9, Est GFR ( Amer) > 60, Est GFR (Non-Af Amer) > 60, Random Glucose 156 H, Calcium 10.1, Total Bilirubin 1.4 H, AST 26, ALT 8, Alkaline Phosphatase 101, Total Protein 9.0 H, Albumin 4.5, Globulin 4.5, Albumin/Globulin Ratio 1.0 L 02/13/17 15:05: POC Glucose (mg/dL) 162 H - EKG Interpretation EKG Interpretation (Text): 02/13/17 16:32 Sinus tachycardia @ [address] changes (David,Manit) - Medication Orders Current Medication Orders: Tramadol HCl (Ultram) 50 mg PO STAT STA Stop: 02/13/17 18:04 Discontinued Medications Diphenhydramine HCl (Benadryl) 25 mg IVP STAT STA Stop: 02/13/17 18:04 Sodium Chloride (Sodium Chloride 0.9%) 1,000 mls @ 999 mls/hr IV .Q1H1M STA Stop: 02/13/17 16:31 Last Admin: 02/13/17 16:16 Dose: 999 MLS/HR eMAR Start Stop Document 02/13/17 16:16 DOMINGA (Rec: 02/13/17 16:17 [id number] Intravenous Solution Start Date 02/13/17 Start Time 16:16 End Date 02/13/17 End time 17:16 Total Infusion Time 60 Ketorolac Tromethamine (Toradol) 30 mg IVP STAT STA Stop: 02/13/17 15:32 Last Admin: 02/13/17 16:17 Dose: 30 MG IVP Administration Document 02/13/17 16:17 DOMINGA (Rec: 02/13/17 16:17 [id number]) Charges for Administration # of IVP Administrations 1 Ondansetron HCl (Zofran Inj) 4 mg IVP STAT STA Stop: 02/13/17 15:32 Last Admin: 02/13/17 16:17 Dose: 4 MG IVP Administration Document 02/13/17 16:17 DOMINGA (Rec: 02/13/17 16:17 [id number]) Charges for Administration # of IVP Administrations 1 Pantoprazole Sodium (Protonix Inj) 40 mg IVP STAT STA Stop: 02/13/17 16:08 Last Admin: 02/13/17 16:17 Dose: 40 MG IVP Administration Document 02/13/17 16:17 DOMINGA (Rec: 02/13/17 16:17 [facility] [id number]) Charges for Administration # of IVP Administrations 1 Disposition/Present on Arrival - Present on Arrival Any Indicators Present on Arrival: Yes History of DVT/PE: No History of Uncontrolled Diabetes: Yes Urinary Catheter: No History of Decub. Ulcer: No History Surgical Site Infection Following: None <Marietta Hernandez - Last Filed: 02/13/17 16:32> - Present on Arrival Any Indicators Present on Arrival: No - Disposition Have Diagnosis and Disposition been Completed?: Yes Disposition Time: 18:06 Patient Plan: Admission <Alfonso Woody - Last Filed: 02/13/17 18:06> - Disposition Diagnosis: Gastroparesis Disposition: HOSPITALIZED Patient Problems: Current Active Problems Problem Status Diagnosed Acute urinary tract infection Acute Gastroparesis Acute Intractable vomiting with nausea Acute Nausea & vomiting Acute Pneumonia Acute Abdominal pain Chronic Condition: FAIR Referrals: David Theodore DO [Primary Care Provider] - Follow up with primary
[2017-02-13 16:12] LABS: ADD MANUAL DIFF? NO
[2017-02-13 16:25] LABS: ALKALINE PHOSPHATASE 101 U/L (38-133); ALT/SGPT 8 U/L (7-56); AST/SGOT 26 U/L (15-39); BILIRUBIN,TOTAL 1.4 mg/dL (0.2-1.3); BLOOD UREA NITROGEN 16 mg/dL (7-21); CALCIUM 10.1 mg/dL (8.4-10.5); CARBON DIOXIDE 13 mmol/L (21-33); CHLORIDE 106 mmol/L (98-107); GFR AFRICAN-AMERICAN > 60; GLUCOSE,RANDOM 156 mg/dL (70-110); SODIUM 141 mmol/L (132-148)
[2017-02-13 16:26] LABS: BASO # 0.01 K/mm3 (0.0-2.0); BASO % 0.1 % (0.0-3.0); EOS # 0.1 (0.0-0.7); EOS % 0.6 % (1.5-5.0); HEMATOCRIT 35.4 % (36.0-48.0); LYMPH # 2.1 (1.2-3.4); MEAN CELL VOLUME 81.9 fL (80.0-105.0); MEAN CORPUSCULAR HEMOGLOBIN 27.1 pg (25.0-35.0); MEAN CORPUSCULAR HGB CONC 33.1 g/dl (31.0-37.0); MEAN PLATELET VOLUME 9.1 fl (7.0-11.0); MONO # 0.7 (0.1-0.6); MONO % 8.3 % (1.0-6.0); PLATELET COUNT 433 10^3/uL (120.0-450.0); RED CELL DISTRIBUTION WIDTH 15.3 % (11.5-14.5); WHITE BLOOD COUNT 8.8 10^3/ul (4.5-11.0)
[2017-02-13 16:27] LABS: POTASSIUM 4.9 mmol/L (3.6-5.0)
[2017-02-13] MEDS ORDERED: DiphenhydrAMINE 50 mg/ml Inj IVP STA (18:03)
[2017-02-13] MEDS: Sodium Chloride 0.45% 1,000 ML IV SCH ×2 (18:24→18:42)
[2017-02-13 21:34] LABS: URINE BILIRUBIN MODERATE (NEGATIVE); URINE BLOOD LARGE (NEGATIVE); URINE GLUCOSE (UA) 250 mg/dL (NEGATIVE); URINE KETONE >=80 mg/dL (NEGATIVE); URINE LEUKOCYTE ESTERASE NEGATIVE Leu/uL (NEGATIVE); URINE PROTEIN 100 mg/dL (<30 mg/dL); URINE UROBILINOGEN 0.2 E.U./dL (<1 E.U./dL)
[2017-02-13 21:37] LABS: URINE APPEARANCE SL CLOUDY (CLEAR); URINE COLOR DARK YELLOW (YELLOW)
[2017-02-13 21:57] LABS: URINE RBC 15 - 20 /hpf (0-2)
[2017-02-13 21:59] LABS: URINE BACTERIA MOD (NEG)
[2017-02-13] MEDS: DiphenhydrAMINE 50 mg/ml Inj IVP PRN (22:40)
[2017-02-13] MEDS: Insulin Reg-HIGH-Coverage SC SCH (23:27)
[2017-02-14 00:33] VITALS: BMI 31.9
--- NOTE | 2017-02-14 05:36 | HP ---
I saw the patient in the Emergency Room. I was called down by the ER doctor. She is here with gastr oparesis and severe abdominal pain, not feeling well. She gets nausea and vomiting, and she is rolli ng back and forth on the gurney. PAST MEDICAL HISTORY: She is a 41-year-old female with past medical history of diabetes, hypertensio n, gastritis, gastric and duodenal ulcers, recurrent gastroparesis. She was recently just in [facility] for about a week for similar symptoms, intractable nausea, vomiting, epigastric pain. She went home for a few days and now she is back with 10 episodes of nausea, emesis, abdominal pain, very unc omfortable. She sees a doctor that gives her shots of Botox. 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 Enmanuel duarte. I will consult him. She has hypertension. She has neuropathy. She had diabetic ketoacidosi s in the past. She had diabetic foot ulcers in the past. She had left foot osteomyelitis. She has gastritis, gastroparesis, gastroesophageal reflux disease, urinary tract infections, anxiety. FAMILY HISTORY: She has no known family history but there is diabetes and hypertension. SOCIAL HISTORY: Never smoked. No alcohol, no drugs. ALLERGIES: SHE HAS ALLERGY TO REGLAN. REVIEW OF SYSTEMS: No acute vision or hearing changes. No chest pain or shortness of breath. There is severe abdominal pain, epigastric; nausea, vomiting. No diarrhea; maybe possibly constipated. N o leg pains. No dizziness. PHYSICAL EXAMINATION: VITAL SIGNS: She has a 98 temp, 123 pulse, 18 respiratory rate, 147/79 blood pressure, 97% O2 sat. HEENT: Head is atraumatic, normocephalic. Extraocular muscles are intact. Pupils equal, reactive t o light. Throat is moist, no erythema. NECK: Supple, no JVD. HEART: Regular rate. Normal S1, S2. LUNGS: Decreased breath sounds but clear to auscultation. ABDOMEN: There is tenderness all across the abdomen diffusely. No apparent guarding or rebound. De creased bowel sounds, but present. BACK: No back pain. EXTREMITIES: No edema. NEUROLOGIC: GCS 15. Cranial nerves II-XII grossly intact. Normal speech. She is alert and oriente d x 3. SKIN: Warm. LABORATORY DATA: She has a 141 sodium, potassium 4.9, BUN 16, creatinine 0.9, GFR is greater than 60 . Sugars are 152 and 156. Calcium is 10.1. Total bilirubin is 1.4, AST is 26, ALT is 8, alkaline p hosphatase 101, total protein is 9, albumin is 4.5. White count is 8.8, hemoglobin 11.7, hematocrit 35.4, platelets of 433. There is a pending lab test. She will be n.p.o. She will have IV fluids. She will have Zofran, Ultram, Benadryl, Protonix, insulin coverage, put back on her regular medicatio ns. Consult with GI. I am an opiate-free physician. I am trying not to give her any severe pain me dications; that could be part of her constipation issues, being on opiates. Will get the gastroenter ologist to see her. She is here for gastroparesis. Hopefully, this will subside. She is here for severe abdominal pain and gastroparesis and is a diabetic. David Theodore DO cc: [id number] TT: 02/14/2017 05:36:08 angie
[2017-02-14 08:23] LABS: HEMATOCRIT 32.9 % (36.0-48.0); MEAN CELL VOLUME 81.8 fL (80.0-105.0); MEAN CORPUSCULAR HEMOGLOBIN 27.4 pg (25.0-35.0); MEAN CORPUSCULAR HGB CONC 33.4 g/dl (31.0-37.0); MEAN PLATELET VOLUME 8.6 fl (7.0-11.0); RED CELL DISTRIBUTION WIDTH 15.2 % (11.5-14.5); WHITE BLOOD COUNT 7.5 10^3/ul (4.5-11.0)
[2017-02-14 08:32] LABS: ALB/GLOB RATIO 1.1 (1.1-1.8); ALKALINE PHOSPHATASE 82 U/L (38-133); ALT/SGPT 20 U/L (7-56); AST/SGOT 18 U/L (15-39); BILIRUBIN,TOTAL 0.9 mg/dL (0.2-1.3); BLOOD UREA NITROGEN 14 mg/dL (7-21); CALCIUM 9.4 mg/dL (8.4-10.5); CARBON DIOXIDE 18 mmol/L (21-33); CHLORIDE 105 mmol/L (95-110); GFR AFRICAN-AMERICAN > 60; GLUCOSE,RANDOM 246 mg/dL (70-110); POTASSIUM 4.4 mmol/L (3.6-5.0); SODIUM 141 mmol/L (132-148); TOTAL PROTEIN 7.7 g/dL (5.8-8.3)
[2017-02-14] MEDS: cefTRIAXone 1 gm 100 ML IVPB SCH (09:57)
[2017-02-14] MEDS: Insulin Reg-HIGH-Coverage SC SCH ×4 (09:57→21:53)
--- NOTE | 2017-02-14 10:45 | PN ---
DATE: 02/14/2017 I saw the patient resting comfortably in bed this morning. She is calm, in no acute distress. No ab dominal pain. She slept fairly well last night and was in fairly good spirits. I am going to put he r on clear fluids. MEDICATIONS: She is currently on IV fluids, Ativan, Benadryl, Carafate, insulin coverage, Lopressor, Protonix IV. I added ceftriaxone for urinary tract infection. She is on Toradol and Zofran. PHYSICAL EXAMINATION: VITAL SIGNS: Temperature 98.3, pulse 114, 164/96 blood pressure, and I will increase metoprolol to 5 0 twice a day, respiratory rate is 20, oxygen sat is 95. HEENT: Head is atraumatic, normocephalic. HEART: Regular rate and tachy. LUNGS: Decreased breath sounds but clear. ABDOMEN: Less distended, nontender, positive bowel sounds. No guarding, no rebound. EXTREMITIES: No edema, much better than yesterday. LABORATORY DATA: She has a 7.5 white count, 11 hemoglobin, 32.9 hematocrit with 366 platelets. Sodi um 141, potassium 4.4, BUN 14, creatinine 0.9, GFR is greater than 60, sugar is 246 and 156, she is o n coverage. Calcium is 9.4. Total bilirubin is 0.9, AST is 18, ALT is 20, alkaline phosphatase 82. Total protein 7.7, albumin is 4. I am waiting for GI to see her, and increasing her diet to clears and slowly increase her diet. We will continue with aggressive treatment and care for her colitis, urinary tract infection, gastrop aresis, severe abdominal pain and the goal is no Dilaudid and no morphine and keep her opiate free an d I think she is doing better. David Theodore DO cc: [id number] TT: 02/14/2017 10:44:27 Confirmation # [id number] Dictation # [id number] an
--- NOTE | 2017-02-14 12:08 | CARD ---
APPROVED REPORT EKG Measurement Heart [id number] <Conclusion> Sinus tachycardia Otherwise normal ECG
--- NOTE | 2017-02-14 12:23 | CP.PCM.PN ---
Subjective - Date & Time of Evaluation Date of Evaluation: 02/14/17 Time of Evaluation: 12:21 - Subjective Subjective: pt needs angiocath insertion. Objective - Vital Signs/Intake and Output Vital Signs (last 24 hours): Temp Pulse Resp BP Pulse Ox 98.3 F 114 H 20 164/96 H 95 02/14/17 07:30 02/14/17 07:30 02/14/17 07:30 02/14/17 07:30 02/14/17 07:30 Intake and Output: 02/14/17 02/14/17 06:59 18:59 Intake Total 600 Balance 600 - Medications Medications: Current Medications Diphenhydramine HCl (Benadryl) 50 mg IVP Q6H PRN PRN Reason: Pain, moderate (4-7) Last Admin: 02/13/17 22:40 Dose: 50 mg Sodium Chloride (Sodium Chloride 0.45%) 1,000 mls @ 80 mls/hr IV .[id number] [facility] Last Admin: 02/13/17 18:42 Dose: 80 mls/hr Ceftriaxone Sodium (Rocephin 1 Gram Ivpb) 100 mls @ 100 mls/hr IVPB DAILY [facility] PRN Reason: Protocol Last Admin: 02/14/17 09:57 Dose: 100 mls/hr Insulin Human Regular (Humulin R High) 0 units SC ACHS [facility] PRN Reason: Protocol Last Admin: 02/14/17 09:57 Dose: 2 units Ketorolac Tromethamine (Toradol) 30 mg IVP Q6H PRN PRN Reason: Pain, moderate (4-7) Last Admin: 02/14/17 04:31 Dose: 30 mg Lorazepam (Ativan) 0.5 mg PO BID [facility] PRN Reason: Protocol Last Admin: 02/14/17 09:58 Dose: 0.5 mg Metoprolol Tartrate (Lopressor) 50 mg PO BID [facility] Last Admin: 02/14/17 09:58 Dose: 50 mg Ondansetron HCl (Zofran Inj) 8 mg IVP Q4H PRN PRN Reason: Nausea/Vomiting Pantoprazole Sodium (Protonix Inj) 40 mg IVP Q12 [facility] Last Admin: 02/14/17 09:58 Dose: 40 mg Sucralfate (Carafate Tab) 1 gm PO BID [facility] Last Admin: 02/14/17 09:58 Dose: 1 gm - Labs Labs: 02/14/17 08:01 02/14/17 08:01 Assessment and Plan - Assessment and Plan (Free Text) Assessment: 24 guage angiocath inserted in left lower extremity.
[2017-02-14] MEDS: DiphenhydrAMINE 50 mg/ml Inj IVP PRN ×2 (12:37→18:24)
[2017-02-14] MEDS: POLYETHYLENE GLYCOL 3350 17 GM/Dose PACKET PO SCH (17:02)
--- NOTE | 2017-02-14 19:38 | CON ---
DATE: 02/14/2017 Seen and examined at the bedside earlier today. REQUEST FOR CONSULT: Nausea and vomiting. HISTORY OF PRESENT ILLNESS: This is a 41-year-old female with a past medical history of peptic ulcer disease, GERD, diabetes mellitus, gastroparesis and history of multiple admissions comes to the [facility] with complaints of increased nausea and vomiting as well as abdominal pain. This patient has been followed by our service. She was recently discharged from [facility] [place] a few days ago with similar c omplaints, improved and was discharged. She returns reporting that she was having increased nausea, vomiting, and abdominal pain. Her last bowel movement, she says was on Monday. She is due to see h er sys dir at [facility] on 02/24. He usually gives her Botox injections which she states have helped her. Last one was about 3 years ago. She does not complain of any hemetemesis. No bleeding per rectum. Denies any fever or chills. She reports she is feeling a little better thi s morning. PAST MEDICAL HISTORY: As stated above is diabetes, recurrent gastroparesis, peptic ulcer disease, hy pertension, neuropathy, diabetic ketoacidosis, diabetic foot ulcer, left foot osteomyelitis, UTI and anxiety. PAST SURGICAL HISTORY: No abdominal surgery. Her last endoscopy was 12/12/2016, found to have multi ple ulcers and LA grade C esophagitis, gastroparesis. FAMILY HISTORY: Diabetes and hypertension. SOCIAL HISTORY: Denies smoking, EtOH or substance abuse. ALLERGIES: REGLAN. MEDICATIONS: Reviewed as per MAR. REVIEW OF SYSTEMS: Systems were reviewed with positive findings, see HPI. VITAL SIGNS: Temperature is 98.3, blood pressure is 164/96, pulse rate is 114, respiration rate is 2 0; 95 on room air. LABORATORY: WBC is 7.5, H and H is 11.0 and 32.9, platelet is 366. Chem: Sodium is 141, K 4.4, BUN is 14, creatinine 0.9. Her LFTs are within normal limits. PHYSICAL EXAMINATION: HEENT: Sclerae are anicteric. NECK: Supple. CARDIAC: S1 and S2. LUNGS: With decreased breath sounds, but good air entry. No rales or wheeze. ABDOMEN: Positive bowel sounds. It is soft with diffuse abdominal tenderness. No rebound or guardi ng or organomegaly. EXTREMITIES: No edema. NEUROLOGIC: Awake, alert, and oriented. ASSESSMENT: This is a 41-year-old female with a history of diabetes mellitus, recurrent gastroparesi s, GERD and peptic ulcer disease, comes in with complaints of intractable nausea, vomiting and abdomi nal pain. She has a history of Botox injection with physician at [facility]. The patient sta margy she has appointment for evaluation next month. She is also noted to have UTI and is on IV antibi otics. PLAN: Her diet is going to be advanced to clear liquid. If she tolerates will continue to increase slowly. She would definitely benefit from seeing the physician at [place] for Botox since she states that th is helps her. The patient is not currently on any pain medication. She seems to be doing okay with this. She does have multiple ulcers and we would recommend to continue the Protonix 40 mg IV q. 12 a s well as the Carafate b.i.d. She is on Rocephin and will monitor her electrolytes. The patient was seen and case discussed with Dr. Gomez and spoke to Dr. Theodore earlier. Samantha YEN cc: [id number] TT: 02/14/2017 19:37:30 Confirmation # [id number] Dictation # [id number] angie
[2017-02-15] MEDS: DiphenhydrAMINE 50 mg/ml Inj IVP PRN ×3 (00:38→15:03)
[2017-02-15] MEDS: Sodium Chloride 0.45% 1,000 ML IV SCH ×3 (01:21→09:49)
--- NOTE | 2017-02-15 07:38 | CON ---
DATE: 02/14/2017 This patient was seen and evaluated earlier. This an addendum to GI consult report dicted by Samantha Webb NP Discussed with the patient at length. This 41- year-old patient with severe gastroparesis is being followed at the GI motility center in [place] and was recently discharged. The patient readmitted with nausea, vomiting and abdominal discomfort. The patient has a history of severe esophageal erosions, severe gastroparesis. The patient in the past was on domperidone, had status post Botox injection in the past. PHYSICAL EXAMINATION: Abdomen is soft but there is no tenderness. IMPRESSION: This 41-year-old patient with severe diabetic gastroparesis with a grade C esophagitis, recently discharged from the hospital, was admitted back again with episodes of nausea and vomiting. The patient is on twice a day PPI with close monitoring of the hemoglobin and hematocrit. Tolerates the diet. The patient has been on clear liquid diet. As she is tolerating, will advance to full liquid diet, however, pureed diet is a real option. Started on Carafate twice a day. The plan is to treat the patient conservatively and follow up with the GI advanced motility center in [place]. Thank you very much for allowing me to participate in the care of the patient. Bev Gomez MD cc: [id number] TT: 02/15/2017 07:37:26 Confirmation # [id number] Dictation # [id number] angie SYLVESTER
[2017-02-15 07:46] LABS: MEAN CELL VOLUME 81.6 fL (80.0-105.0); MEAN CORPUSCULAR HEMOGLOBIN 27.1 pg (25.0-35.0); MEAN CORPUSCULAR HGB CONC 33.2 g/dl (31.0-37.0); MEAN PLATELET VOLUME 8.7 fl (7.0-11.0); RED CELL DISTRIBUTION WIDTH 15.4 % (11.5-14.5); WHITE BLOOD COUNT 7.4 10^3/ul (4.5-11.0)
[2017-02-15 07:58] LABS: ALKALINE PHOSPHATASE 67 U/L (38-133); ALT/SGPT 19 U/L (7-56); AST/SGOT 22 U/L (15-39); BILIRUBIN,TOTAL 0.9 mg/dL (0.2-1.3); BLOOD UREA NITROGEN 14 mg/dL (7-21); CALCIUM 8.6 mg/dL (8.4-10.5); CARBON DIOXIDE 19 mmol/L (21-33); CHLORIDE 100 mmol/L (95-110); GFR AFRICAN-AMERICAN > 60; POTASSIUM 4.4 mmol/L (3.6-5.0); SODIUM 132 mmol/L (132-148); TOTAL PROTEIN 6.6 g/dL (5.8-8.3)
[2017-02-15 08:07] LABS: GLUCOSE,RANDOM 339 mg/dL (70-110)
[2017-02-15] MEDS: Insulin Reg-HIGH-Coverage SC SCH ×4 (08:14→22:00)
[2017-02-15] MEDS: POLYETHYLENE GLYCOL 3350 17 GM/Dose PACKET PO SCH ×2 (09:49→18:24)
[2017-02-15] MEDS: cefTRIAXone 1 gm 100 ML IVPB SCH (09:50)
--- NOTE | 2017-02-15 10:38 | DS ---
POSSIBLE DISCHARGE I saw her resting in bed this morning. She slept fairly well. She is not nauseous this morning. I am hoping that if she eats breakfast, and she keeps it down, we can discharge her later today. MEDICATIONS: She will be on Ativan, Benadryl, Carafate, Lopressor, MiraLax, Protonix, Rocephin, tram adol, and Zofran, and she can go back to her regular insulin that she was taking before she came in [facility]. LABORATORY DATA: She has a 7.4 white count, 10.3 hemoglobin, 31 hematocrit with 335 platelets. Sodi um 132. Potassium is 4.4. BUN 14, creatinine 0.9. GFR is greater than 60. Sugar is now up to 339. She must be eating better. Calcium is 8.6. AST is 22. ALT is 19, alk phos 67. Total protein is 6.6. Urine is moderate bilirubin, moderate bacteria. She has been on Rocephin for the urinary tract infection. [facility] She was here for nausea, vomiting, abdominal pain, gastroparesis, diabetes, and UTI. She has to foll ow up with her special GI [facility] that does special injections on her for Botox, which I think will help. So if she does well for breakfast, we will discharge her home this morning. I discussed this with the preschool program director who tells me she has to go to her GI [facility] when she feels up to it. She is here for nausea, vomiting, abdominal pain, gastroparesis, diabetes, UTI, and I will change her Rocephin to Macrodantin when she leaves. David Theodore DO cc: [id number] TT: 02/15/2017 10:37:01 scott
[2017-02-15] MEDS: Insulin Regular 1 UNITS/0.01 ML ML SC SCH ×2 (11:20→18:23)
--- NOTE | 2017-02-15 12:04 | PN ---
DATE: 02/15/2017 Seen and examined at the bedside earlier this morning. The patient was seen in the bed. She has not had any episodes of nausea or vomiting and no abdominal pain now, but she states she is still not fe eling well, but she does report some improvement but feels she is not ready to go home. She has not had any bowel movement. She was started on MiraLax last night. VITAL SIGNS: Temperature is 98.6, blood pressure is 117/78, pulse is 90, respirations 18, 100% on ro om air. LABORATORY DATA: WBC 7.4, H and H are 10.3 and 31.0, platelets are 335. Sodium 132, K is 4.4, BUN 1 4, creatinine 0.9. Her LFTs are within normal limits. Her random glucose this morning was 339. She received insulin coverage. PHYSICAL EXAMINATION: HEENT: Sclerae are anicteric. NECK: Supple. CARDIAC: S1, S2. LUNGS: Clear. ABDOMEN: With bowel sounds. Soft. It was nontender on palpation. No rebound or guarding. EXTREMITIES: No edema. NEUROLOGIC: Awake, alert, and oriented. ASSESSMENT: This is a 41-year-old female with history of diabetes mellitus, diabetic ketoacidosis, g astroesophageal reflux disease and gastroparesis. She came in with nausea, vomiting and abdominal pa in. Her symptoms have improved. She also is constipated. She has not had a bowel movement since and has peptic ulcer disease and is also being treated for a urinary tract infection. PLAN: Advancing her diet to full liquids. She may go home today if she tolerates this. She is due to see a GI specialist in [facility] for evaluation for Botox on 02/24/2017. Will continue Pr otonix 40 b.i.d. and Carafate b.i.d., and she is currently on IV antibiotics of Rocephin. Hopefully, the patient will tolerate her advanced diet and when she goes home she can go on a pureed diet and m tyler her appointment on 02/24/2017. We also put her on MiraLax b.i.d. hopefully to aid in her bowel m ovement. The patient was seen and case discussed with Dr. Gomez. Samantha YEN cc: [id number] TT: 02/15/2017 12:02:55 Confirmation # [id number] Dictation # [id number] mn
[2017-02-15 19:18] VITALS: RESP 20
[2017-02-16] MEDS: DiphenhydrAMINE 50 mg/ml Inj IVP PRN ×4 (00:14→22:01)
[2017-02-16 06:51] LABS: MEAN CELL VOLUME 80.7 fL (80.0-105.0); MEAN CORPUSCULAR HEMOGLOBIN 26.7 pg (25.0-35.0); MEAN PLATELET VOLUME 8.8 fl (7.0-11.0); WHITE BLOOD COUNT 6.3 10^3/ul (4.5-11.0)
[2017-02-16 07:09] LABS: ALKALINE PHOSPHATASE 84 U/L (38-133); ALT/SGPT 23 U/L (7-56); AST/SGOT 20 U/L (15-39); BILIRUBIN,TOTAL 0.9 mg/dL (0.2-1.3); BLOOD UREA NITROGEN 11 mg/dL (7-21); CALCIUM 8.8 mg/dL (8.4-10.5); CARBON DIOXIDE 19 mmol/L (21-33); CHLORIDE 97 mmol/L (98-107); GFR AFRICAN-AMERICAN > 60; POTASSIUM 4.3 mmol/L (3.6-5.0); SODIUM 130 mmol/L (132-148); TOTAL PROTEIN 7.1 g/dL (5.8-8.3)
[2017-02-16 07:21] LABS: GLUCOSE,RANDOM 416 mg/dL (70-110)
[2017-02-16] MEDS: Insulin Regular 1 UNITS/0.01 ML ML SC SCH ×3 (07:30→17:52)
[2017-02-16] MEDS: Insulin Reg-HIGH-Coverage SC SCH ×4 (07:30→22:02)
[2017-02-16] MEDS ORDERED: Insulin Regular 1 UNITS/0.01 ML ML SC STA (07:46)
[2017-02-16] MEDS: cefTRIAXone 1 gm 100 ML IVPB SCH (08:11)
--- NOTE | 2017-02-16 08:13 | PN ---
DATE: 02/15/2017 ADDENDUM This patient was seen and evaluated earlier. Discussed with Dr. Theodore. This is an addendum to the GI consultation and progress note dictated by Samantha Webb NP. The patient still complains of episodes of vomiting. Feels better than what she came in with. The p atient's diet has been advanced since the patient is tolerating at that time. The plan was to send t he patient home. The patient also had an LA grade C esophagitis. This patient has a complex gastrop aresis; had a followup at the [facility]. The patient is due to have followup on 02/24. Would recommend at this point, since she is tolerating full liquid, advance slowly to pureed diet, an d continue Carafate and Protonix. Follow up at the Center. Her glucose level still remains on the higher range, and LFTs normal. Thank you very much for allowing me to participate in the care of the patient. Bev Gomez MD cc: [id number] TT: 02/15/2017 20:49:39 Confirmation # [id number] Dictation # [id number] scott
--- NOTE | 2017-02-16 09:23 | PN ---
DATE: 02/16/2017 I saw her sitting up in bed. She is very uncomfortable. She has not been able to eat or drink in the past 24 hours. I thought I would be able to discharge her today, but I cannot. She just cannot function. She is in abdominal pain. MEDICATIONS: She is on Ativan, Benadryl, Carafate, insulin, Levemir. I increased it to 25 and give her 20 units of insulin this morning for the elevated blood sugar. MiraLax, Protonix, Rocephin IV, IV fluids, Toradol, and Zofran. I believe the pain management has been pretty good without narcotics. We will continue that plan. PHYSICAL EXAMINATION: VITAL SIGNS: She has a 98.4 temp, 101 pulse, 174/109 blood pressure, 20 respiratory rate, 96% O2 sat on room air. HEAD: Atraumatic, normocephalic. HEART: Regular rate. LUNGS: Decreased breath sounds, but clear. ABDOMEN: For the most part is soft, decreased bowel sounds. There is tenderness all over. Mild bloating. No guarding. EXTREMITIES: No edema. LABORATORY DATA: She has a 6.3 white count, 10.9 hemoglobin, 33 hematocrit with 332 platelets. Sodium 130. Potassium is 4.3. BUN is 11, creatinine 0.9. GFR is greater than 60. Sugar has up to 416, and I will bump up her insulin also. Calcium is 8.8. AST is 20. ALT is 23. Alk phos is 84. Total protein 7.1. She is being seen by GI. When she can tolerate the fluids, advance her diet and send her home, and have her follow up with the doctor that is going to do her botox. In the meantime, I am going to bump up her Zofran to 8 mg q. 4 [id number], not p.r.n. I am going to give her extra insulin and Levemir. The patient has got severe abdominal pain, nausea, vomiting, gastroparesis, diabetes, and UTI. David Theodore DO cc: [id number] TT: 02/16/2017 09:22:59 Confirmation # [id number] Dictation # [id number] jn MTDD
[2017-02-16] MEDS: POLYETHYLENE GLYCOL 3350 17 GM/Dose PACKET PO SCH ×2 (10:00→17:54)
[2017-02-16] MEDS ORDERED: Dextrose 50% SYRINGE Inj (50 ml) ONE (16:04)
--- NOTE | 2017-02-16 16:05 | PN ---
DATE: 02/16/2017 SUBJECTIVE: The patient was seen and examined at the bedside earlier today. The patient was advanced to full liquids. It is reporting that the patient cannot tolerate this. She had apple juice and vomited that up but no hematemesis or coffee-grounds vomitus. Her Zofran dose was increased to 8 mg every 4 hours. She does not look in any distress this morning. She did have bowel movement yesterday. She was given MiraLax. She had a formed bowel movement that was hard, but no reports of bleeding. VITAL SIGNS: Temperature is 98.4, blood pressure is 174/109, pulse is 101, respirations 20, 96 on room air. LABORATORY DATA: WBC 6.3, H and H is 10.9 and 33.0, platelets of 332. Sodium is 130, K is 4.3, BUN is 11, creatinine is 0.9. Her glucose this morning is 416. She is on insulin. LFTs are within normal limits. PHYSICAL EXAMINATION: HEENT: Sclera is anicteric. NECK: Supple. CARDIAC: S1, S2. LUNGS: Sounds sound clear. ABDOMEN: With bowel sounds, soft, mildly distended, but was not tender when I palpated this morning. EXTREMITIES: No edema. ASSESSMENT: This is a 41-year-old female with history of diabetes mellitus, severe gastroparesis, history of peptic ulcer disease, gastroesophageal reflux disease, history of diabetic ketoacidosis and constipation and urinary tract infection. PLAN: Detailed discussion done with patient and dietitian. We recommend that the patient be on full liquid diet. It appears that the patient cannot tolerate pureed and so recommend to continue with full liquid diet along with supplements. Had detailed discussion with the dietitian for evaluation of proper caloric/nutritional intake. The patient is a diabetic. The patient is to have evaluation at [facility]. Also, patient's Zofran has been increased from 4 to 8 q.4 hours. Discussed with the patient that she cannot be on this dose on a frequent basis as these have side effects. We will continue the MiraLax for the constipation. She is on Protonix IV q.12. She is also getting IV antibiotics for the UTI. As far as her pain management, she is on Toradol and gets Benadryl for the itching. Continue IV fluids for hydration. Getting insulin for her blood sugar and is also on Carafate p.o. b.i.d. If all else fails, patient may need a jejunostomy. The patient was seen and case discussed with Dr. Gomez. Samantha YEN cc: [id number] TT: 02/16/2017 16:04:59 Confirmation # [id number] Dictation # [id number] MTDD
[2017-02-16 16:28] VITALS: O2SAT 98
[2017-02-16] MEDS: Sodium Chloride 0.45% 1,000 ML IV SCH (17:54)
[2017-02-16] MEDS ORDERED: Insulin Detemir 100 units/ml Vial (Levemir) SC SCH (22:00)
[2017-02-17] MEDS: DiphenhydrAMINE 50 mg/ml Inj IVP PRN ×2 (04:16→10:43)
[2017-02-17 06:45] LABS: MEAN CELL VOLUME 79.7 fL (80.0-105.0); MEAN CORPUSCULAR HEMOGLOBIN 27.1 pg (25.0-35.0); MEAN PLATELET VOLUME 9.8 fl (7.0-11.0); RED CELL DISTRIBUTION WIDTH 15.1 % (11.5-14.5); WHITE BLOOD COUNT 6.3 10^3/ul (4.5-11.0)
[2017-02-17 06:51] LABS: ALB/GLOB RATIO 1.1 (1.1-1.8); ALKALINE PHOSPHATASE 85 U/L (38-133); ALT/SGPT 22 U/L (7-56); AST/SGOT 18 U/L (15-39); BLOOD UREA NITROGEN 10 mg/dL (7-21); CALCIUM 9.2 mg/dL (8.4-10.5); CARBON DIOXIDE 22 mmol/L (21-33); CHLORIDE 99 mmol/L (95-110); GFR AFRICAN-AMERICAN > 60; GLUCOSE,RANDOM 175 mg/dL (70-110); SODIUM 135 mmol/L (132-148); TOTAL PROTEIN 7.5 g/dL (5.8-8.3)
[2017-02-17 07:01] LABS: POTASSIUM 3.9 mmol/L (3.6-5.0)
[2017-02-17] MEDS: Insulin Reg-HIGH-Coverage SC SCH ×3 (07:49→16:43)
--- NOTE | 2017-02-17 08:17 | PN ---
DATE: 02/16/2017 ADDENDUM This is an addendum to the GI progress report dictated by Samantha Webb NP. The patient is still having episodes of vomiting, and the patient has severe gastroparesis, LA grade C esophagitis. The patient has been on PPI, also on increased dose of Zofran. Would recommend . The patient to discuss with dietitian. Would leave the patient only on a full liquid diet with wilkerson pplement. The patient has an appointment to see [facility] up with [facility]. The reaso nable thing for this patient if he is not able to tolerate the pureed diet, to be discharged home wit h only full liquid diet and the supplement, with adjustment dose of the insulin. This could be at sh ort-term measure until the patient is being fully evaluated at the [facility]. Bev Gomez MD cc: [id number] TT: 02/16/2017 22:59:44 Confirmation # [id number] Dictation # [id number] jn
[2017-02-17 08:47] VITALS: TEMP 98.2
[2017-02-17] MEDS: Insulin Regular 1 UNITS/0.01 ML ML SC SCH ×3 (10:13→16:43)
[2017-02-17] MEDS: POLYETHYLENE GLYCOL 3350 17 GM/Dose PACKET PO SCH (10:17)
[2017-02-17 10:21] VITALS: BP 155/96; PULSE 120
--- NOTE | 2017-02-17 12:07 | DS ---
I saw her this morning walking around in her room. She is very scared to be discharged because every time she was discharged she is back with nausea, vomiting, and just abdominal pain. She has severe gastroparesis. I discussed this with the transportation agent, and the only help she has is to go to his doctor in [place], and I would like to have her discharged so she can drive down there to [facility] to their ER and then have treatment for this gastroparesis with Botox. That is my plan, to try and do today. She has 98.2 temp, 110 pulse, 147/99 blood pressure, 20 respiratory rate, 98% O2 sat on room air. HEAD: Atraumatic, normocephalic. HEART: Regular rate. LUNGS: Clear to auscultation. ABDOMEN: Decreased bowel sounds, soft. EXTREMITIES: No edema. MEDICATIONS: She is on Ativan, Benadryl, Carafate, insulin, Levemir, Lopressor, MiraLax, Protonix, R ocephin, IV fluids, Toradol, and Zofran. She has a white count of 6.3, hemoglobin 11.9, hematocrit 35, platelets of 280. A 135 sodium, potass ium is 3.9, BUN is 10, creatinine 0.7. GFR is greater than 60. Sugar is 175, calcium 9.2, total bob i is 1. AST is 18, ALT is 22, alk phos 85, total protein 7.5, albumin is 3.8. This is the best her lab has been. I am going to stop the Rocephin IV and try and limit her medications as best I can. I discussed this with the transportation agent, who is going to talk to her about getting down to [facility] for this ER the re, and then they can admit her and put her in the hospital. I do not think I am going to be able to get her much better than this, and we cannot just keep her he re. That is the problem. She has severe gastroparesis. I am hoping that she eats well without throwing up today. If that is the case, I will try and discharge her; otherwise will watch her another day. David Theodore DO cc: [id number] TT: 02/17/2017 12:06:31 jn
--- NOTE | 2017-02-17 17:20 | CP.PCM.PN ---
Subjective - Date & Time of Evaluation Date of Evaluation: 02/17/17 Time of Evaluation: 10:30 - Subjective Subjective: Seen and examined earlier today, she does not tolerate glucerna, she vomited that up but was able to tolerate apple sauce and a few spoon of farina. She states that she has to eat very slow. Had BM, no diarrhea. Less abdominal pain. No reports of overt GI bleed. Objective - Vital Signs/Intake and Output Vital Signs (last 24 hours): Temp Pulse Resp BP Pulse Ox 98.2 F 120 H 20 155/96 H 98 02/17/17 08:00 02/17/17 10:18 02/17/17 08:00 02/17/17 10:18 02/17/17 08:00 Intake and Output: 02/17/17 02/17/17 06:59 18:59 Intake Total 840 Balance 840 - Medications Medications: Current Medications Diphenhydramine HCl (Benadryl) 50 mg IVP Q6H PRN PRN Reason: Pain, moderate (4-7) Last Admin: 02/17/17 10:43 Dose: 50 mg Sodium Chloride (Sodium Chloride 0.45%) 1,000 mls @ 80 mls/hr IV .[id number] [facility] Last Admin: 02/16/17 17:54 Dose: 80 mls/hr Insulin Detemir (Levemir) 25 unit SC HS [facility] Last Admin: 02/16/17 22:02 Dose: 25 unit Insulin Human Regular (Humulin R High) 0 units SC ACHS [facility] PRN Reason: Protocol Last Admin: 02/17/17 11:36 Dose: Not Given Insulin Human Regular (Humulin R) 10 units SC AC [facility] PRN Reason: Protocol Last Admin: 02/17/17 11:37 Dose: Not Given Ketorolac Tromethamine (Toradol) 30 mg IVP Q6H PRN PRN Reason: Pain, moderate (4-7) Last Admin: 02/17/17 10:17 Dose: 30 mg Lorazepam (Ativan) 0.5 mg PO BID [facility] PRN Reason: Protocol Last Admin: 02/17/17 11:14 Dose: Not Given Metoprolol Tartrate (Lopressor) 50 mg PO BID [facility] Last Admin: 02/17/17 10:18 Dose: 50 mg Ondansetron HCl (Zofran Inj) 8 mg IVP Q4H [facility] Last Admin: 02/17/17 13:29 Dose: Not Given Pantoprazole Sodium (Protonix Inj) 40 mg IVP Q12 [facility] Last Admin: 02/17/17 10:18 Dose: 40 mg Polyethylene Glycol (Miralax) 17 gm PO BID [facility] Last Admin: 02/17/17 10:17 Dose: Not Given Sucralfate (Carafate Tab) 1 gm PO BID [facility] Last Admin: 02/17/17 10:17 Dose: 1 gm - Labs Labs: 02/17/17 05:50 02/17/17 05:50 - Constitutional Appears: No Acute Distress - Head Exam Head Exam: NORMAL INSPECTION - Eye Exam Eye Exam: Normal appearance. absent: Scleral icterus - ENT Exam ENT Exam: Mucous Membranes Moist - Neck Exam Neck Exam: Normal Inspection - Respiratory Exam Respiratory Exam: Clear to Ausculation Bilateral, NORMAL BREATHING PATTERN. absent: Respiratory Distress - Cardiovascular Exam Cardiovascular Exam: +S1, +S2 - GI/Abdominal Exam GI & Abdominal Exam: Soft, Normal Bowel Sounds. absent: Guarding, Tenderness, Rebound - Extremities Exam Extremities Exam: absent: Calf Tenderness - Neurological Exam Neurological Exam: Alert, Awake, Oriented x3 Assessment and Plan - Assessment and Plan (Free Text) Assessment: ASSESSMENT Intractable N/V, likley r/t Gastroparesis H/O Peptic ulcer Disease GERD H/O DKA DM Constipation UTI PLAN continue full liquid, will d/c glucerna, give clear Ensure BID monitor glucose with coverage continue Mirlax on Protonix BID getting IV antibiotics for UTI Toradol for pain Carafate BID Detailed discussion done with patient, she is to have evaluation at [facility] for Botox injection, has appointment 02/24/17. Discuss with patient if symptoms continue she will need sooner evaluation. If symptoms persist and therapy not relieved, may need eval for jejunostomy for proper nutritional intake. The patient expressed that she would not want this. The patient was seen and case discussed with Dr. Gomez. ADDENDUM: Seen afternoon, male financial coach at beside, patient appears comfortable , much improved to this am, she was seen eating chicken and avacados by nursing staff, she denies N/V, she is chewing gum and appears relaxed. Discussed outpatient FU and diet on discharge, recommend full liquids and supplement clear Ensure, since cannot tolerate glucerna, till her appointment at [place]. From GI point of view patient is cleared to be discharged home with recommendations explained above and to keep her original FU with GI specialist at [facility] in [place]. Discussed with Dr. Theodore
== END 2017-02-17 17:35 | disposition home or self-care (01) | DRG 18 ==
LOC: ED 14:49 → ERH 18:03 → 5RNO 22:51
PROVIDERS: ADMIT Family Medicine; ATTEND Family Medicine
DX: E10.43 Type 1 diabetes mellitus with diabetic autonomic (poly)neuropathy (principal); K31.84 Gastroparesis; N39.0 Urinary tract infection, site not specified; K27.9 Peptic ulcer, site unspecified, unspecified as acute or chronic, without hemorrhage or perforation; K21.0 Gastro-esophageal reflux disease with esophagitis; K52.9 Noninfective gastroenteritis and colitis, unspecified; K59.00 Constipation, unspecified; Z79.4 Long term (current) use of insulin

== ENCOUNTER 2017-03-10 18:52 | Inpatient (IN) | payer MEDICAID ==
[2017-03-10 19:12] VITALS: BMI 25.3
--- NOTE | 2017-03-10 19:15 | ED PDOC ---
Arrival/HPI - General Chief Complaint: Abdominal Pain Time Seen by Provider: 03/10/17 19:13 - History of Present Illness Narrative History of Present Illness (Text): 03/10/17 19:32 42yo female with a hx of DM, gastroparesis, presents with 1 day duration abd pain, cramping, and nausea. States this feels like previous episodes of gastroparesis. Denies cp, denies vomiting. Denies symptoms, no f/c, no other complaints. Past Medical History - Provider Review Nursing Documentation Reviewed: Yes - Infectious Disease Hx of Infectious Diseases: None - Tetanus Immunization Tetanus Immunization: Unknown - Past Medical History Past Medical History: No Previous - Cardiac Hx Cardiac Disorders: Yes Hx Hypertension: Yes - Pulmonary Hx Respiratory Disorders: No - Neurological Hx Neurological Disorder: Yes (NEUROPATHY) - HEENT Hx HEENT Disorder: No - Renal Hx Renal Disorder: No - Endocrine/Metabolic Hx Endocrine Disorders: Yes Hx Diabetes Mellitus Type 1: Yes (hx DKA) - Hematological/Oncological Hx Blood Disorders: No - Integumentary Hx Dermatological Disorder: Yes (hx diabetic foor ulcers) - Musculoskeletal/Rheumatological Hx Musculoskeletal Disorders: Yes Hx Falls: No Hx Osteomyelitis: Yes (LEFT FOOT) - Gastrointestinal Hx Gastrointestinal Disorders: Yes (gastritis,gastroparesis) Hx Gastroesophageal Reflux: Yes Hx Gastrointestinal Ulcer: Yes Other/Comment: duodenal ulcers - Genitourinary/Gynecological Hx Genitourinary Disorders: No Hx Urinary Tract Infection: Yes - Psychiatric Hx Psychophysiologic Disorder: Yes Hx Anxiety: Yes Hx Substance Use: No - Past Surgical History Past Surgical History: No Previous - Surgical History Hx Cardiac Catheterization: No - Anesthesia Hx Anesthesia: No Hx Anesthesia Reactions: No Hx Malignant Hyperthermia: No - Suicidal Assessment Feels Threatened In Home Enviroment: No Family/Social History Family/Social History: Unknown Family HX Smoking Status: Never Smoked Hx Alcohol Use: No Hx Substance Use: No Hx Substance Use Treatment: No Allergies/Home Meds Allergies/Adverse Reactions: Allergies metoclopramide HCl [From Reglan] Adverse Reaction (Verified 03/10/17 19:13) VOMITING Review of Systems - Physician Review All systems were reviewed & negative as marked: Yes Physical Exam - Physical Exam Narrative Physical Exam (Text): - Review of Systems Constitutional: Normal. absent: Fatigue, Weight Change, Fevers Eyes: Normal ENT: denies sore throat, denies tristhmus Respiratory: Normal. absent: SOB, Cough, Sputum Cardiovascular: absent: Chest Pain, Palpitations, Syncope Gastrointestinal: abd pain, nausea. absent: Diarrhea, Vomiting Genitourinary: Normal. absent: Dysuria, Frequency, Hematuria, vaginal bleeding Musculoskeletal: Normal. absent: Arthralgias, Back Pain, Neck Pain Skin: no rashes, no erythema Neurological: absent: Focal Weakness Endocrine: Normal Hemo/Lymphatic: Normal Psychiatric: No suicidal or homicidal ideations Physical exam Patient appears age appropriate in no distress, speaking full sentences without difficulty - Systems Exam Head: Present: Atraumatic, Normocephalic Pupils: Present: PERRL Extroacular Muscles: Present: EOMI Conjunctiva: Present: Normal Mouth: Present: Moist Mucous Membranes Neck: Present: Normal Range of Motion. No: MIDLINE TENDERNESS, Paraspinal Tenderness Respiratory/Chest: Present: Clear to Auscultation, Good Air Exchange. No: Respiratory Distress, Accessory Muscle Use, Tachypneic Cardiovascular: Present: Regular Rate and Rhythm, Normal S1, S2, Peripheal Pulses Present. No: Murmurs Abdomen: Present: Normal Bowel Sounds. No: Tenderness, Distention, Peritoneal Signs, Rebound, Guarding Back: Present: Normal Inspection. No: Midline Tenderness, Paraspinal Tenderness Upper Extremity: Present: Normal Inspection. No: Cyanosis, Edema Lower Extremity: Present: Normal Inspection. No: Edema Neurological: Present: GCS=15, Speech Normal, cranial nerves II through XII fully intact with no cerebellar abnormality, neurosensory fully intact. No focal neurological deficits. Skin: Present: Warm, Dry, Normal Color. No: Rashes Lymphatic: Present: OX3, NI, NC Psychiatric: Present: Alert, Oriented x 3, Normal Insight, Normal Concentration Vital Signs Reviewed: Yes Vital Signs Temp Pulse Resp BP Pulse Ox 03/10/17 19:09 98.9 F 130 H 16 164/100 H 98 Temperature: Afebrile Blood Pressure: Hypertensive Pulse: Tachycardic Respiratory Rate: Normal Appearance: Positive for: Well-Appearing Pain Distress: None Mental Status: Positive for: Alert and Oriented X 3 Medical Decision Making ED Course and Treatment: 03/10/17 19:15 Previous records reviewed, patient was discharged on 02/17/17 after being treated for nausea, vomiting, abdominal pain. Patient has a history of gastroparesis. She also has a history of diabetes. 42-year-old female with a history of diabetes and gastroparesis and emergency department with abdominal pain and nausea. Exam, patient has tachycardia, she's hypertensive, abdomen is soft nontender nondistended with positive bowel sounds in all 4 quadrants and no peritoneal signs. Differential diagnoses includes but not limited to: DKA versus dehydration versus gastroparesis Labs, fluids, Zofran ordered. EKG shows sinus tachycardia, 125 bpm, no ST segment elevations, normal intervals. Interpreted by me. 03/10/17 21:[address] Theodore, [facility] to consult MICU to watch overnight and to admit to his service jeffy Dai from MICU, accepted pt. states will place insulin drip order Chest xray interpreted by ED physician shows no pneumothorax, no cardiomegaly, no infiltrates - Critical Care Critical Care Minutes: 30 minutes Narrative Critical Care (Text): 03/10/17 21:07 in DKA, requiring IV hydration and insulin drip - Lab Interpretations Lab Results: 03/10/17 19:45 03/10/17 19:45 Lab Results 03/10/17 19:45: WBC 8.5 D, RBC 4.32, Hgb 11.9 L, Hct 35.4 L, MCV 81.9, MCH 27.5 , MCHC 33.6, RDW 15.6 H, Plt Count 446, MPV 9.1, Gran % 75.2 H, Lymph % (Auto) 17.6 L, [place] % (Auto) 6.7 H, Eos % (Auto) 0.4 L, Baso % (Auto) 0.1, Gran # 6.37 , Lymph # 1.5, [place] # 0.6, Eos # 0.0, Baso # 0.01, PT 11.3, INR 1.05, APTT 28.3 , pO2 46, VBG pH 7.22 L, VBG pCO2 47.0, VBG HCO3 19.2 L, VBG Total CO2 20.6 L, VBG O2 Sat (Calc) 81.9 H, VBG Base Excess -8.5 L, VBG Potassium 4.8, Glucose 274 H, Lactate 1.6, FiO2 21.0, Sodium 137.0, Potassium 4.6, Chloride 102.0, Carbon Dioxide 17 L, Anion Gap 26 H, BUN 26 H, Creatinine 1.1, Est GFR ( Amer) > 60, Est GFR (Non-Af Amer) 55, Random Glucose 263 H, Calcium 9.9, Total Bilirubin 1.2, AST 14 L, ALT 29, Alkaline Phosphatase 104, Lactate Dehydrogenase 607, Total Creatine Kinase 214, Troponin I 0.01, Total Protein 9.3 H, Albumin 4.7, Globulin 4.6, Albumin/Globulin Ratio 1.0 L, Lipase 27, Venous Blood Potassium 4.8, Urine Color Yellow, Urine Appearance Sl cloudy, Urine pH 6.0, Ur Specific [place] 1.025, Urine Protein 100 H, Urine Glucose (UA ) >=1000, Urine Ketones >=80, Urine Blood Large H, Urine Nitrate Negative, Urine Bilirubin Moderate H, Urine Urobilinogen 0.2, Ur Leukocyte Esterase Negative, Urine RBC 25 - 30, Urine WBC 2 - 5, Ur Epithelial Cells 6 - 8, Urine Bacteria Mod - RAD Interpretation Radiology Orders: 03/10/17 19:31 CHEST PORTABLE [RAD] Stat - Medication Orders Current Medication Orders: Sodium Chloride (Sodium Chloride 0.9%) 2,000 mls @ 1,000 mls/hr IV .Q2H STA Stop: 03/10/17 21:30 Last Admin: 03/10/17 20:23 Dose: 1,000 MLS/HR eMAR Start Stop Document 03/10/17 20:23 MMA (Rec: 03/10/17 20:23 [id number]) Intravenous Solution Start Date 03/10/17 Start Time 20:23 End Date 03/10/17 End time 22:30 Total Infusion Time 127 Discontinued Medications Famotidine (Pepcid 20mg/50ml Premix) 50 mls @ 100 mls/hr IV STAT STA Stop: 03/10/17 20:00 Last Admin: 03/10/17 20:22 Dose: 100 MLS/HR eMAR Start Stop Document 03/10/17 20:22 MMA (Rec: 03/10/17 20:23 MMA [id number]) Intravenous Solution Start Date 03/10/17 Start Time 20:22 End Date 03/10/17 End time 20:55 Total Infusion Time 33 Insulin Human Regular (Humulin R) 10 units IV STAT STA Stop: 03/10/17 20:58 Ondansetron HCl (Zofran Inj) 4 mg IVP STAT STA Stop: 04/21/17 19:32 Last Admin: 03/10/17 20:22 Dose: 4 MG IVP Administration Document 03/10/17 20:22 KECIA (Rec: 03/10/17 20:22 [id number]) Charges for Administration # of IVP Administrations 1 Disposition/Present on Arrival - Present on Arrival Any Indicators Present on Arrival: Yes History of DVT/PE: No History of Uncontrolled Diabetes: Yes Urinary Catheter: No History of Decub. Ulcer: No History Surgical Site Infection Following: None - Disposition Have Diagnosis and Disposition been Completed?: Yes Diagnosis: DKA (diabetic ketoacidoses) Disposition: HOSPITALIZED Disposition Time: 21:08 Patient Plan: ICU Patient Problems: Current Active Problems Problem Status Diagnosed Acute urinary tract infection Acute Intractable vomiting with nausea Acute Nausea & vomiting Acute Pneumonia Acute Abdominal pain Chronic Condition: FAIR
[2017-03-10] MEDS ORDERED: Famotidine 20mg/50ml 50 ML IV STA (19:31)
[2017-03-10] MEDS ORDERED: Sodium Chloride 0.9% 2,000 ML IV STA (19:31)
[2017-03-10 20:04] LABS: URINE BILIRUBIN MODERATE (NEGATIVE); URINE BLOOD LARGE (NEGATIVE); URINE GLUCOSE (UA) >=1000 mg/dL (NEGATIVE); URINE KETONE >=80 mg/dL (NEGATIVE); URINE LEUKOCYTE ESTERASE NEGATIVE Leu/uL (NEGATIVE); URINE PROTEIN 100 mg/dL (<30 mg/dL); URINE UROBILINOGEN 0.2 E.U./dL (<1 E.U./dL)
[2017-03-10 20:09] LABS: URINE APPEARANCE SL CLOUDY (CLEAR); URINE COLOR YELLOW (YELLOW)
[2017-03-10 20:19] LABS: URINE BACTERIA MOD (NEG); URINE RBC 25 - 30 /hpf (0-2)
[2017-03-10 20:38] LABS: ADD MANUAL DIFF? NO
[2017-03-10 20:41] LABS: BASO # 0.01 K/mm3 (0.0-2.0); BASO % 0.1 % (0.0-3.0); EOS % 0.4 % (1.5-5.0); GRAN # 6.37 (1.4-6.5); GRAN % 75.2 % (50.0-68.0); HEMATOCRIT 35.4 % (36.0-48.0); LYMPH # 1.5 (1.2-3.4); LYMPH % 17.6 % (22.0-35.0); MEAN CELL VOLUME 81.9 fL (80.0-105.0); MEAN CORPUSCULAR HEMOGLOBIN 27.5 pg (25.0-35.0); MEAN CORPUSCULAR HGB CONC 33.6 g/dl (31.0-37.0); MEAN PLATELET VOLUME 9.1 fl (7.0-11.0); MONO # 0.6 (0.1-0.6); MONO % 6.7 % (1.0-6.0); PLATELET COUNT 446 10^3/uL (120.0-450.0); RED CELL DISTRIBUTION WIDTH 15.6 % (11.5-14.5); VENOUS BLOOD GAS BASE EXCESS -8.5 mmol/L (0.0-2.0); VENOUS BLOOD PH 7.22 (7.32-7.43); WHITE BLOOD COUNT 8.5 10^3/ul (4.5-11.0)
[2017-03-10 20:50] LABS: ALKALINE PHOSPHATASE 104 U/L (38-133); ALT/SGPT 29 U/L (7-56); AST/SGOT 14 U/L (15-39); BILIRUBIN,TOTAL 1.2 mg/dL (0.2-1.3); BLOOD UREA NITROGEN 26 mg/dL (7-21); CALCIUM 9.9 mg/dL (8.4-10.5); CARBON DIOXIDE 17 mmol/L (21-33); CHLORIDE 100 mmol/L (98-107); GFR AFRICAN-AMERICAN > 60; GLUCOSE,RANDOM 263 mg/dL (70-110); LIPASE 27 U/L (23-300); POTASSIUM 4.6 mmol/L (3.6-5.0); SODIUM 138 mmol/L (132-148); TOTAL PROTEIN 9.3 g/dL (5.8-8.3)
[2017-03-10 20:54] LABS: INR 1.05 (0.93-1.08); PARTIAL THROMBOPLASTIN TIME 28.3 Seconds (23.7-30.8)
[2017-03-10] MEDS ORDERED: Insulin Regular 1 UNITS/0.01 ML ML IV STA (20:57)
[2017-03-10 21:02] LABS: TROPONIN I 0.01 ng/mL
[2017-03-10] MEDS ORDERED: Insulin Regular 100 UNITS in Sodium Chloride 0.9% 99 ML IV PRN (21:05)
--- NOTE | 2017-03-10 22:04 | CP.PCM.CON ---
History of Present Illness - History of Present Illness History of Present Illness: CC: Abdominal pain and nausea/vomiting x 5 days HPI: 42 y/o AAF with a PMHx Type 1 DM, Htn, Anxiety, recurrent severe gastroparesis comes to the ED today with the complaint of sharp stabbing pain all over her abdomen consistent with her gastroparesis pain. She also notes that she has been unable to keep anything down and has been throwing up whatever she attempts to eat. She describes her vomitus as being NBNB and mostly liquid. She states the pain is a 10/10 and nothing has helped it and is asking for Dilaudid while sitting up in bed. She denies any complaints of fevers, chills, headache, diarrhea, dysuria or increase in urinary frequency. She reports that since she has not been eating well and throwing up frequently she has not been consistent with her insulin regimen either. PMHx: Type 1 Diabetes Htn Anxiety Severe Gastroparesis Allergies: Reglan Fam Hx: Htn and DM in multiple family members Soc Hx: denies tobacco/etoh/illicit drug use Meds: Lopressor 25mg po bid Ativan 0.5mg po bid Humulin 10 units SQ w/meals Levemir 30 units SQ HS Carafate 1gm po bid Protonix 40mg po daily Zofran 4mg po Q6 Review of Systems - Review of Systems Review of Systems: As per HPI otherwise negative for a 12 point ROS Past Patient History - Infectious Disease Hx of Infectious Diseases: None - Tetanus Immunizations Tetanus Immunization: Unknown - Past Social History Smoking Status: Never Smoked - CARDIAC Hx Cardiac Disorders: Yes Hx Hypertension: Yes - PULMONARY Hx Respiratory Disorders: No - NEUROLOGICAL Hx Neurological Disorder: Yes (NEUROPATHY) - HEENT Hx HEENT Problems: No - RENAL Hx Chronic Kidney Disease: No - ENDOCRINE/METABOLIC Hx Endocrine Disorders: Yes Hx Diabetes Mellitus Type 1: Yes (hx DKA) - HEMATOLOGICAL/ONCOLOGICAL Hx Blood Disorders: No - INTEGUMENTARY Hx Dermatological Problems: Yes (hx diabetic foor ulcers) - MUSCULOSKELETAL/RHEUMATOLOGICAL Hx Musculoskeletal Disorders: Yes Hx Falls: No Hx Osteomyelitis: Yes (LEFT FOOT) - GASTROINTESTINAL Hx Gastrointestinal Disorders: Yes (gastritis,gastroparesis) Hx Gastroesophageal Reflux: Yes Other/Comment: duodenal ulcers - GENITOURINARY/GYNECOLOGICAL Hx Genitourinary Disorders: No Hx Urinary Tract Infection: Yes - PSYCHIATRIC Hx Psychophysiologic Disorder: Yes Hx Anxiety: Yes Hx Substance Use: No - SURGICAL HISTORY Hx Cardiac Catheterization: No - ANESTHESIA Hx Anesthesia: No Hx Anesthesia Reactions: No Hx Malignant Hyperthermia: No Meds Allergies/Adverse Reactions: Allergies Allergy/AdvReac Type Severity Reaction Status Date / Time metoclopramide HCl AdvReac VOMITING Verified 03/10/17 19:13 [From Reglan] - Medications Medications: Current Medications Insulin Human Regular 100 (units/ Sodium Chloride) 100 mls @ 0 mls/hr IV .Q0M PRN; Protocol; Per Protocol PRN Reason: TITRATE PER MD ORDER Physical Exam - Constitutional Appears: Agitated - Head Exam Head Exam: ATRAUMATIC, NORMOCEPHALIC - Eye Exam Eye Exam: EOMI - ENT Exam ENT Exam: Mucous Membranes Dry - Respiratory Exam Respiratory Exam: Clear to Auscultation Bilateral, NORMAL BREATHING PATTERN - Cardiovascular Exam Cardiovascular Exam: Tachycardia, +S1, +S2. absent: Systolic Murmur - GI/Abdominal Exam GI & Abdominal Exam: Soft, Tenderness (diffusely tender to palpation). absent: Guarding, Rebound - Rectal Exam Rectal Exam: Deferred - Extremities Exam Extremities exam: Positive for: normal inspection - Neurological Exam Neurological exam: Alert, Oriented x3 - Psychiatric Exam Psychiatric exam: Flat Affect - Skin Skin Exam: Dry, Intact, Normal Color Results - Vital Signs Recent Vital Signs: Last Vital Signs Temp 98.9 F 03/10/17 19:09 Pulse 130 H 03/10/17 19:09 Resp 16 03/10/17 19:09 BP 164/100 H 03/10/17 19:09 Pulse Ox 98 03/10/17 19:09 - Labs Result Diagrams: 03/10/17 19:45 03/10/17 19:45 - EKG Data EKG Interpreted by: Myself EKG shows normal: Sinus rhythm Rate: Tachycardia - Imaging and Cardiology Chest x-ray Status: Image reviewed by me (no infiltrates/effusions noted) Assessment & Plan - Assessment and Plan (Free Text) Assessment: 42 y/o LULY presents to the ED with the complaint of abdominal pain, nausea and vomiting x 5 days and is found to be in DKA. She will be admitted to the ICU for further care and management. Plan: Neuro: patient is AAOx3, agitated with her abdominal pain otherwise does not have any neurological issues Pulm: breathing well; will place on nasal cannula if needed, otherwise monitor and keep her pulse oximeter over 92% CVS: will hydrate with IVF; will hold her po lopressor for now and place her on 2.5mg IV lopressor Q6h prn HR >135 or SBP > 170 GI: will keep her NPO; Zofran IV prn nausea and vomiting; will place her on Erythromycin IV for her gastroparesis and defer to the PMD in regards to choosing a GI travel sales consultant Renal: will monitor strict i's and o's; replete electrolytes as needed ID: no acute infectious process identified at this time; will follow cultures for any growth endo: will start her on an insulin drip and transition to po once her abdominal pain resolves and her GAP is closed; will change her IVF to D5 1/2NS once her fingersticks are 250 or less. heme: no acute issues at this time; will monitor psych: agitated secondary to her current medical condition; no acute issues otherwise case discussed with Dr. Woody in the ED labs and images reviewed personally Total time of care: 40 minutes
[2017-03-10] MEDS ORDERED: Sodium Chloride 0.9% 1,000 ML IV SCH (22:15)
[2017-03-10 22:44] LABS: MAGNESIUM 2.5 mg/dL (1.7-2.2)
[2017-03-10] MEDS: Dextrose 5%/0.45% NS 1,000 ML IV SCH (23:00)
[2017-03-11] MEDS ORDERED: Morphine 2 mg/ml ISec IVP ONE (00:24)
[2017-03-11] MEDS ORDERED: HYDROmorphone 1 mg/ml ISec IVP STA (01:45)
[2017-03-11 02:24] LABS: BLOOD UREA NITROGEN 22 mg/dL (7-21); CARBON DIOXIDE 11 mmol/L (21-33); CHLORIDE 108 mmol/L (98-107); GFR AFRICAN-AMERICAN > 60; GLUCOSE,RANDOM 131 mg/dL (70-110); POTASSIUM 4.4 mmol/L (3.6-5.0); SODIUM 140 mmol/L (132-148)
[2017-03-11] MEDS: Dextrose 5%/0.45% NS 1,000 ML IV SCH (05:45)
[2017-03-11 08:23] LABS: ADD MANUAL DIFF? NO
--- NOTE | 2017-03-11 08:25 | RAD ---
HISTORY: tachycardia COMPARISON: No prior. FINDINGS: LUNGS: No active pulmonary disease. PLEURA: No significant pleural effusion identified, no pneumothorax apparent. CARDIOVASCULAR: Normal. OSSEOUS STRUCTURES: No significant abnormalities. VISUALIZED UPPER ABDOMEN: Normal. OTHER FINDINGS: None. IMPRESSION: No active disease.
[2017-03-11 08:28] LABS: EOS % 0.4 % (1.5-5.0); GRAN # 4.96 (1.4-6.5); GRAN % 73.9 % (50.0-68.0); HEMATOCRIT 28.5 % (36.0-48.0); LYMPH # 1.1 (1.2-3.4); LYMPH % 15.6 % (22.0-35.0); MEAN CELL VOLUME 80.7 fL (80.0-105.0); MEAN CORPUSCULAR HEMOGLOBIN 26.9 pg (25.0-35.0); MEAN CORPUSCULAR HGB CONC 33.3 g/dl (31.0-37.0); MEAN PLATELET VOLUME 8.6 fl (7.0-11.0); MONO # 0.7 (0.1-0.6); MONO % 10.1 % (1.0-6.0); PLATELET COUNT 358 10^3/uL (120.0-450.0); RED CELL DISTRIBUTION WIDTH 15.7 % (11.5-14.5); WHITE BLOOD COUNT 6.7 10^3/ul (4.5-11.0)
[2017-03-11 08:37] LABS: BLOOD UREA NITROGEN 17 mg/dL (7-21); CALCIUM 8.6 mg/dL (8.4-10.5); CARBON DIOXIDE 20 mmol/L (21-33); CHLORIDE 104 mmol/L (98-107); GFR AFRICAN-AMERICAN > 60; GLUCOSE,RANDOM 173 mg/dL (70-110); SODIUM 135 mmol/L (132-148)
--- NOTE | 2017-03-11 08:51 | CON ---
DATE: 03/11/2017 HISTORY OF PRESENT ILLNESS: This is a 42-year-old lady with history of type 1 diabetes mellitus, severe diabetic gastroparesis, hypertension, who presented this time with diffuse abdominal pain, nausea, vomiting, inability to keep food down. She was throwing up at every attempt to eat. There was no hemetemesis. The patient denies constipation, chest pain, shortness of breath. PAST MEDICAL HISTORY: Type 1 diabetes, hypertension, anxiety, severe gastroparesis. ALLERGIES: REGLAN. FAMILY HISTORY: Diabetes mellitus type 1. SOCIAL HISTORY: No alcohol or illicit drug abuse. No tobacco smoking. MEDICATIONS AT HOME: Lopressor, Ativan, Humulin, Levemir, Carafate, Protonix, Zofran. REVIEW OF SYSTEMS: Revealed 12-organ system other than mentioned in history of present illness is negative. PHYSICAL EXAMINATION: VITAL SIGNS: Blood pressure 125/66, heart rate 116, oxygen saturation 100% on room air, respiratory rate 14. HEAD AND NECK: Atraumatic. LUNGS: Clear to auscultation bilaterally. HEART: Regular rate and rhythm. S1, S2 normal. ABDOMEN: Soft, nontender, nondistended (patient reports that she is not nauseated anymore and she was drinking water and was able to keep it down). MUSCULOSKELETAL: No C/C/E. NEUROLOGIC: The patient moves all extremities spontaneously. SKIN: Moist. PSYCHIATRIC: The patient is alert and oriented x 3. LABORATORY DATA: WBC 8.5, hemoglobin 11.9, platelet count 446, sodium 140, potassium 4.4, chloride 108, carbon dioxide 11, BUN 22, creatinine 0.9, glucose 223. MEDICATIONS: D5 half normal saline 200 mL per hour, erythromycin, insulin drip , Lovenox 40 mg subQ daily, Toradol p.r.n., Zofran p.r.n. ASSESSMENT AND PLAN: This is a 42-year-old lady with diabetes mellitus type 1 and recurrent severe gastroparesis who was admitted with anion gap metabolic acidosis in the setting of elevated glucose's serum level and ketonuria. Concern for diabetic ketoacidosis was raised and the patient was started on insulin drip, IV fluids. Significant component of dehydration due to vomiting may also have played a role. The patient is on erythromycin to improve her gastric motility. The patient is doing better. Her morning labs are pending. We will continue to target euvolemia, euglycemia, normothermia and oxygen saturation more than 90%. As the patient's blood glucose is below 250, her IV fluids were switched to D5 containing solution. Once her anion gap is closed, she will be transitioned to longer acting subcutaneous formulation of the insulin. The fact that she is able to keep her food and water down is encouraging. We will continue with BMP every 4 hours and Accu-Cheks every 1 hour until her anion gap closes. We will continue to target euvolemia, euglycemia, normothermia and oxygen saturation more than 90. We will continue with deep venous thrombosis and gastrointestinal prophylaxis. Addendum: AG closed, Levemir s/c given, insulin drip stopped 1 hr later. accucheck and low coverage q4 hrs continued, patient ate and drank ok. cont 1/ 2NS IVF untill oral hydration optimized. Hemodynamically and respiratory bell stable ccm time 40 min Murray Fregoso MD cc: [id number] TT: 03/11/2017 08:50:06 Confirmation # [id number] Dictation # [id number] danish SYLVESTER
[2017-03-11] MEDS: Enoxaparin 40 mg Syringe SC SCH (09:25)
[2017-03-11] MEDS ORDERED: Insulin Detemir 100 units/ml Vial (Levemir) SC ONE (11:19)
[2017-03-11 12:28] LABS: BLOOD UREA NITROGEN 16 mg/dL (7-21); CALCIUM 8.8 mg/dL (8.4-10.5); CARBON DIOXIDE 22 mmol/L (21-33); CHLORIDE 103 mmol/L (98-107); GFR AFRICAN-AMERICAN > 60; GLUCOSE,RANDOM 182 mg/dL (70-110); POTASSIUM 4.1 mmol/L (3.6-5.0); SODIUM 136 mmol/L (132-148)
--- NOTE | 2017-03-11 13:10 | HP ---
I know the patient well from the office and multiple visits to the hospital. She is a 42-year-old -[place]izen [place] female who presented with one day duration of abdominal pain, cramping, and nauseousness. She has a history of diabetes, gastroparesis and comes to the Emergency Room, feels like it is the gastroparesis again. PAST MEDICAL HISTORY: She has a past medical history of hypertension, neuropathy, DKA, diabetic foot ulcers, osteomyelitis of the left foot, gastritis , gastroparesis, GERD, gastrointestinal ulcers, duodenal ulcers, urinary tract infections, anxiety. SOCIAL HISTORY: Never smoked, no alcohol, no drugs. FAMILY HISTORY: Hypertension in the family. ALLERGIES: REGLAN. REVIEW OF SYSTEMS: She denies any vision changes or hearing changes or sore throat. No shortness of breath, cough or sputum. No chest pain, palpitations or dizziness. There is no vomiting, no diarrhea. There is nauseousness and abdominal pain and cramping. No problems urinating. No back pain. No skin rashes. No focal weakness or dizziness or numbness. No suicidal thoughts or depression at this time. PHYSICAL EXAMINATION: VITAL SIGNS: 98.9 temp, 130 pulse, 16 respiratory rate, 164/100 blood pressure , 98% O2 sat on room air. HEENT: Head is atraumatic, normocephalic. Extraocular muscles are intact. Pupils react to light and accommodation. Throat is moist, no erythema. NECK: Supple, no JVD. HEART: Regular rate. Normal S1, S2. LUNGS: Decreased breath sounds but clear to auscultation and fair air exchange of oxygen. ABDOMEN: Normal bowel sounds. Mild discomfort. No tenderness, no guarding, no rebound, no CVA tenderness. BACK: Normal to inspection. No tenderness. No CVA tenderness. EXTREMITIES: Have no edema. NEUROLOGIC: She has GCS of 15. Speech is normal. Cranial nerves II-XII grossly intact. Neurologically, she seems fairly intact. SKIN: Warm and dry. No ulcers. Alert and oriented x 3. LYMPHATICS: Nonpalpable lymphadenopathy appreciated. Thyroid midline. LABORATORY DATA: She had multiple labs, she has a 6.7 white count, 9.5 hemoglobin, 20.5 hematocrit with 358 platelets, 1.05 INR. Blood gases 7.22 pH, pCO2 was 47, pCO2 of 19. Sodium 136, 4.1 potassium, BUN 16, creatinine 0.8, GFR is greater than 60, sugar is 182. Calcium is 8.8 right now when she came in 26 BUN, 1.1 creatinine. Large blood, moderate bacteria in urine. She is being seen by facilities officer. She was put in the intensive care unit for diabetic ketoacidosis, elevated blood sugars, metabolic acidosis. She tells me she is going to [facility] for persistent gastroparesis. We will continue with aggressive treatment plan for her diabetes and GI issues. Check her labs tomorrow. David Theodore DO cc: [id number] TT: 03/11/2017 13:09:12 jn MTDD
[2017-03-11] MEDS: Insulin Reg-LOW-Coverage SC SCH ×2 (14:30→17:39)
[2017-03-11] MEDS: Sodium Chloride 0.45% 1,000 ML IV SCH ×2 (14:32→21:23)
[2017-03-11] MEDS ORDERED: Insulin Reg-LOW-Coverage SC SCH ×2 (16:30→22:00)
--- NOTE | 2017-03-11 20:07 | CARD ---
APPROVED REPORT EKG Measurement Heart [id number] <Conclusion> Sinus tachycardia Possible Left atrial enlargement Borderline ECG
--- NOTE | 2017-03-12 00:04 | CP.PCM.PN ---
Subjective - Date & Time of Evaluation Date of Evaluation: 03/12/17 Time of Evaluation: 00:01 - Subjective Subjective: S:It was requested to insert a heparin lock. Patient also requested a sleeping pill. Has no other complaints now. Pertinent medical record was reviewed. O: Last Vital Signs 3 Temp 98.1 F 03/11/17 16:38 Pulse 125 H 03/11/17 16:38 Resp 20 03/11/17 16:38 BP 156/98 H 03/11/17 16:38 Pulse Ox 98 03/11/17 16:38 Awake, alert, not in distress. LUNGS:Normal breathing pattern. A:Adjustment insomnia. Poor venous access. P:# 22 angiocath was inserted in left hand dorsum. Will give Benadryl 25 mg PO x 1. Objective - Vital Signs/Intake and Output Vital Signs (last 24 hours): Temp Pulse Resp BP Pulse Ox 98.1 F 125 H 20 156/98 H 98 03/11/17 16:38 03/11/17 16:38 03/11/17 16:38 03/11/17 16:38 03/11/17 16:38 - Medications Medications: Current Medications Enoxaparin Sodium (Lovenox) 40 mg SC DAILY MICHELLE PRN Reason: Protocol Last Admin: 03/11/17 09:25 Dose: 40 mg Erythromycin 500 mg/ Sodium (Chloride) 100 mls @ 100 mls/hr IVPB Q8H MICHELLE PRN Reason: Protocol Last Admin: 03/11/17 21:24 Dose: 100 mls/hr Sodium Chloride (Sodium Chloride 0.45%) 1,000 mls @ 150 mls/hr IV .Q6H40M [facility] Last Admin: 03/11/17 21:23 Dose: 150 mls/hr Insulin Detemir (Levemir) 20 unit SC HS MICHELLE Insulin Human Regular (Humulin R) 8 units SC AC MICHELLE Insulin Human Regular (Humulin R Low) 0 units SC ACHS MICHELLE PRN Reason: Protocol Ketorolac Tromethamine (Toradol) 15 mg IVP Q6H PRN PRN Reason: Pain, moderate (4-7) Stop: 03/12/17 22:11 Last Admin: 03/11/17 11:17 Dose: 15 mg Ketorolac Tromethamine (Toradol) 30 mg IVP Q6H PRN PRN Reason: Pain, severe (8-10) Stop: 03/12/17 22:11 Last Admin: 03/11/17 22:44 Dose: 30 mg Ondansetron HCl (Zofran Inj) 4 mg IVP Q6H PRN PRN Reason: Nausea/Vomiting - Labs Labs: 03/11/17 08:21 03/11/17 12:15 PT 11.3 Seconds (9.9-11.8) 03/10/17 19:45 INR 1.05 (0.93-1.08) 03/10/17 19:45 APTT 28.3 Seconds (23.7-30.8) 03/10/17 19:45
[2017-03-12] MEDS: Sodium Chloride 0.45% 1,000 ML IV SCH ×2 (04:36→16:42)
[2017-03-12] MEDS ORDERED: Insulin Regular 1 UNITS/0.01 ML ML SC SCH (07:30)
[2017-03-12 07:34] LABS: ADD MANUAL DIFF? NO
[2017-03-12 07:36] LABS: BASO # 0.01 K/mm3 (0.0-2.0); BASO % 0.2 % (0.0-3.0); EOS # 0.1 (0.0-0.7); EOS % 1.3 % (1.5-5.0); GRAN # 3.84 (1.4-6.5); GRAN % 60.7 % (50.0-68.0); HEMATOCRIT 28.9 % (36.0-48.0); LYMPH # 1.8 (1.2-3.4); LYMPH % 28.1 % (22.0-35.0); MEAN CORPUSCULAR HEMOGLOBIN 27.2 pg (25.0-35.0); MEAN CORPUSCULAR HGB CONC 33.6 g/dl (31.0-37.0); MEAN PLATELET VOLUME 8.7 fl (7.0-11.0); MONO # 0.6 (0.1-0.6); MONO % 9.7 % (1.0-6.0); PLATELET COUNT 339 10^3/uL (120.0-450.0); RED CELL DISTRIBUTION WIDTH 15.7 % (11.5-14.5); WHITE BLOOD COUNT 6.3 10^3/ul (4.5-11.0)
[2017-03-12 07:50] LABS: ALKALINE PHOSPHATASE 70 U/L (38-133); ALT/SGPT 33 U/L (7-56); AST/SGOT 19 U/L (15-39); BILIRUBIN,TOTAL 0.7 mg/dL (0.2-1.3); BLOOD UREA NITROGEN 13 mg/dL (7-21); CALCIUM 8.4 mg/dL (8.4-10.5); CARBON DIOXIDE 22 mmol/L (21-33); CHLORIDE 100 mmol/L (98-107); CHOLESTEROL 221 mg/dL (130-200); GFR AFRICAN-AMERICAN > 60; GLUCOSE,RANDOM 274 mg/dL (70-110); SODIUM 131 mmol/L (132-148); TOTAL PROTEIN 6.6 g/dL (5.8-8.3)
[2017-03-12] MEDS: Insulin Reg-LOW-Coverage SC SCH ×4 (07:57→22:00)
[2017-03-12 08:07] LABS: T4 8.9 ug/dL (5.5-11.0)
[2017-03-12 08:21] LABS: THYROID STIMULATING HORMONE 0.85 mIU/mL (0.46-4.68)
--- NOTE | 2017-03-12 09:01 | CON ---
DATE: 03/11/2017 ROOM: 364 This is a 42-year-old female with known history of type 1 insulin-dependent diabetes, presenting here with intractable nausea, dyspepsia and vomiting with supervening diffuse abdominal pain with a signi ficant history of diabetic gastroparesis and is now being referred for diabetic evaluation because of persistent hyperglycemic accelerations as noted thereof. PAST MEDICAL HISTORY: As mentioned above, history of type 1 insulin-dependent diabetes on a dual ins ulin drug combination using Levemir at 20 units subQ at bedtime daily with regular insulin taken as 1 0 units t.i.d. with meals as noted. She has had very variable oral intake with fluctuating glycemic levels prior to admission. History of hypertensive cardiovascular disease and dyslipidemia, history of diabetic retinopathy and polyneuropathy with underlying diabetic peripheral arterial disease and v asculopathy with prior admissions for lower extremity cellulitis and osteomyelitis, history of severe recurrent diabetic gastroparesis with multiple admissions for exacerbations of the same, history of generalized anxiety and depression on psychotropic medications. FAMILY HISTORY: Positive for diabetes and hypertension. SOCIAL HISTORY: The patient has a supportive family. No known substance use. REVIEW OF SYSTEMS: As mentioned above, admits to episodic dizziness and lightheadedness, worse on th e day of admission with easy fatigability and tiredness and generalized body weakness. Also, admits to precordial chest pains, especially on exertion, but denies any palpitations or paroxysmal nocturna l dyspnea. Her oral intake has been variable and suboptimal with nausea, dyspepsia and intractable v omiting episodes and supervening diffuse abdominal pain with no apparent relief from outpatient narco tic analgesics. PHYSICAL EXAMINATION: GENERAL: This is an average-built female, in no apparent distress. VITAL SIGNS: Blood pressure of 140/80, pulse of 100 beats per minute, regular, temperature 98, respi rations 20. Height is 5 feet 6 inches, weight is 157 pounds. HEENT: Head normocephalic. Eyes anicteric with pink conjunctivae. Fundoscopy not possible at this time. Ears, nose and throat otherwise normal. NECK: Supple. Thyroid gland is normal size. No carotid bruits or any cervical adenopathy. CARDIOPULMONARY: Some adynamic precordium. S1, S2 is rapid and regular. LUNGS: Clear to auscultation. ABDOMEN: Flat, soft with positive bowel sounds. There is positive direct tenderness, but no evidenc e of rebound. EXTREMITIES: No peripheral edema. Pulses are +2 bilaterally. LABORATORIES: Initially, her chemistries showed a BUN of 22, sodium 140, potassium 4.4, chloride 108 , CO2 is 11 which is quite low, glucose is 131, creatinine 0.9. Her glucose levels have ranged from 221-257 and 265 and 297 mg/dL. The latest glucose level tonight is 355 mg/dL. ASSESSMENT: This is a 42-year-old female with uncontrolled and decompensated type 1 insulin-dependen t diabetes, presenting here with severe acute exacerbation of diabetic gastroparesis with intractable vomiting and diffuse abdominal pain and is now being referred for diabetic evaluation and management . PLAN OF MANAGEMENT: We will modify her current insulin regimen to a more physiologic insulin combina tion with Levemir to be started at 20 units subQ at bedtime daily as ordered. We will also start her on a low dose of regular insulin given as 8 units subQ t.i.d. before meals to start tomorrow morning as ordered. We will modify the coverage scale to obviate hypoglycemia and detailed orders have been given. A hemoglobin A1c will be done to confirm her prior glycemic control and baseline thyroid fun ction studies and a lipid panel will be ordered. We will follow and advise accordingly. Tamara Campo MD cc: [id number] TT: 03/12/2017 09:00:29 Confirmation # [id number] Dictation # [id number] en
[2017-03-12] MEDS: Enoxaparin 40 mg Syringe SC SCH (09:12)
--- NOTE | 2017-03-12 10:43 | PN ---
DATE: 03/12/2017 I saw the patient resting, now out of the intensive care unit in a bed on the second floor. She is in a lot of upper abdominal pain. She is not feeling well. She cannot eat well. She feels nauseous. PHYSICAL EXAMINATION: VITAL SIGNS: Temp 98.5, 105 pulse, 156/92 blood pressure, 19 respiratory rate, 99% O2 sat on room air. HEENT: Head is atraumatic, normocephalic. HEART: Regular rate. LUNGS: Decreased breath sounds, but clear. ABDOMEN: Soft, decreased bowel sounds, mild guarding. No rebound. EXTREMITIES: No edema. MEDICATIONS: She is currently on erythromycin, insulin, Levemir, Lovenox, IV fluids, Toradol, Zofran. LABORATORY DATA: She has a 139 sodium. Potassium is 4. BUN 13, creatinine 0.9. GFR is greater than 60. The blood sugars have been 355, 274, 297. I increased some of her insulin to help with the blood sugar. She has a 0.7 bili. AST is 19. ALT is. Alk phos is total protein 6.6. White count 6.3, hemoglobin 9.7, hematocrit 28.9, platelets of 339. She is being seen by endocrinology. I also called in GI, Dr. Wong, to help us with the abdominal pain, possible gastroparesis. I am going to put her on Protonix. I am going to check her labs tomorrow. She is here for DKA, elevated blood sugars, and now she is having abdominal pain , which she has done many times before, and she is on a regular diet, which she is not eating well. I will see what her labs are tomorrow, and see what GI has to offer her, and see what he does with the change in medications. She is here for DKA, diabetes, gastroparesis, abdominal pain, hypertension. David Theodore DO cc: [id number] TT: 03/12/2017 10:42:52 Confirmation # [id number] Dictation # [id number] jn HIGINIO
[2017-03-12 11:47] LABS: CORTISOL AM 14.1 ug/dL (4.46-22.7)
[2017-03-12] MEDS: Insulin Regular 1 UNITS/0.01 ML ML SC SCH ×2 (11:53→16:41)
--- NOTE | 2017-03-12 11:53 | PN ---
DATE: 03/12/2017 ROOM: 364 This is a 42-year-old female with recent uncontrolled type 1 insulin-dependent diabetes, presenting h ere with marked hyperglycemic accelerations and supervening diabetic ketoacidosis and dehydration and is now being followed closely for metabolic management. Her glycemic levels are fluctuating, but improved, and today's glucose values have ranged from 274-29 7 mg/dL. It was 355 at bedtime last night. Her latest chemistries include a BUN of 13, sodium 131, potassium 4.0, chloride 100, CO2 22, glucose 274 and creatinine 0.9. So at this time, we will modify her basal and bolus insulin regimen and increase the regular insulin to 10 units subQ t.i.d. before meals to start at lunchtime today as ordered. We will also increase t he basal insulin with Levemir to be given as 26 units subQ at bedtime daily to start tonight. We analia l modify the coverage scale to a low dose algorithm using regular insulin as ordered to obviate hypog lycemia and detailed orders have been given. We will continue the IV hydration as ordered to optimiz e her lost fluids and electrolytes accordingly and we will also obtain serial chemistries and supplem ent accordingly as needed. We will follow. Tamara Campo MD cc: [id number] TT: 03/12/2017 11:52:04 Confirmation # [id number] Dictation # [id number] en
--- NOTE | 2017-03-12 19:44 | CP.PCM.PN ---
Subjective - Date & Time of Evaluation Date of Evaluation: 03/12/17 Time of Evaluation: 19:43 - Subjective Subjective: Nurse calls me to see patient for palpitation, N/V,sweating, hot flushes. 42 y/o woman came to the ED with the complaint of abdominal pain, nausea and vomiting x 5 days and wasfound to be in DKA. Has allergy to reglan.Has PMH of Type I DM, HTN, anxiety , gastroparesis. Complained of hot flushes, palpitation, vomited once. Gives family history of heart disease. Denies chest pain , sob. Objective - Vital Signs/Intake and Output Vital Signs (last 24 hours): Temp Pulse Resp BP Pulse Ox 98.5 F 111 H 20 139/90 98 03/12/17 17:17 03/12/17 17:17 03/12/17 17:17 03/12/17 17:17 03/12/17 17:17 - Medications Medications: Current Medications Enoxaparin Sodium (Lovenox) 40 mg SC DAILY [facility] PRN Reason: Protocol Last Admin: 03/12/17 09:12 Dose: 40 mg Erythromycin 500 mg/ Sodium (Chloride) 100 mls @ 100 mls/hr IVPB Q8H [facility] PRN Reason: Protocol Last Admin: 03/12/17 14:44 Dose: 100 mls/hr Sodium Chloride (Sodium Chloride 0.45%) 1,000 mls @ 150 mls/hr IV .Q6H40M [facility] Last Admin: 03/12/17 16:42 Dose: 150 mls/hr Insulin Detemir (Levemir) 26 unit SC HS [facility] Insulin Human Regular (Humulin R Low) 0 units SC ACHS [facility] PRN Reason: Protocol Last Admin: 03/12/17 16:36 Dose: Not Given Insulin Human Regular (Humulin R) 10 units SC AC [facility] Last Admin: 03/12/17 16:41 Dose: 10 units Ketorolac Tromethamine (Toradol) 15 mg IVP Q6H PRN PRN Reason: Pain, moderate (4-7) Stop: 03/12/17 22:11 Last Admin: 03/11/17 11:17 Dose: 15 mg Ketorolac Tromethamine (Toradol) 30 mg IVP Q6H PRN PRN Reason: Pain, severe (8-10) Stop: 03/12/17 22:11 Last Admin: 03/12/17 16:41 Dose: 30 mg Ondansetron HCl (Zofran Inj) 4 mg IVP Q6H PRN PRN Reason: Nausea/Vomiting Last Admin: 03/12/17 19:37 Dose: 4 mg Pantoprazole Sodium (Protonix Inj) 40 mg IVP 0600 MICHELLE - Labs Labs: 03/12/17 07:00 03/12/17 07:00 PT 11.3 Seconds (9.9-11.8) 03/10/17 19:45 INR 1.05 (0.93-1.08) 03/10/17 19:45 APTT 28.3 Seconds (23.7-30.8) 03/10/17 19:45 - Constitutional Appears: Well, No Acute Distress - Head Exam Head Exam: ATRAUMATIC, NORMAL INSPECTION, NORMOCEPHALIC - Eye Exam Eye Exam: Normal appearance - ENT Exam ENT Exam: Normal External Ear Exam - Neck Exam Neck Exam: Normal Inspection - Respiratory Exam Respiratory Exam: NORMAL BREATHING PATTERN - Cardiovascular Exam Cardiovascular Exam: absent: JVD - GI/Abdominal Exam GI & Abdominal Exam: Normal Bowel Sounds. absent: Distended - Rectal Exam Rectal Exam: Deferred - Extremities Exam Extremities Exam: Normal Inspection - Back Exam Back Exam: NORMAL INSPECTION - Neurological Exam Neurological Exam: Alert, Oriented x3 - Psychiatric Exam Psychiatric exam: Normal Affect, Normal Mood - Skin Skin Exam: Normal Color Assessment and Plan - Assessment and Plan (Free Text) Assessment: A/P:R/O ACS. DM I. Gastroparesis. Sinus tachycardia. Anxiety. See orders. Discussed with . Cardiology consultation with . Serial EKG,troponin.
[2017-03-12 20:35] LABS: ADD MANUAL DIFF? NO
[2017-03-12 20:39] LABS: BASO # 0.01 K/mm3 (0.0-2.0); BASO % 0.2 % (0.0-3.0); EOS # 0.1 (0.0-0.7); EOS % 1.4 % (1.5-5.0); GRAN # 3.65 (1.4-6.5); GRAN % 58.4 % (50.0-68.0); HEMATOCRIT 33.1 % (36.0-48.0); LYMPH # 2.1 (1.2-3.4); LYMPH % 32.7 % (22.0-35.0); MEAN CELL VOLUME 81.5 fL (80.0-105.0); MEAN CORPUSCULAR HEMOGLOBIN 26.8 pg (25.0-35.0); MEAN CORPUSCULAR HGB CONC 32.9 g/dl (31.0-37.0); MEAN PLATELET VOLUME 9.5 fl (7.0-11.0); MONO # 0.5 (0.1-0.6); MONO % 7.3 % (1.0-6.0); PLATELET COUNT 273 10^3/uL (120.0-450.0); RED CELL DISTRIBUTION WIDTH 15.6 % (11.5-14.5); WHITE BLOOD COUNT 6.3 10^3/ul (4.5-11.0)
[2017-03-12 20:54] LABS: BLOOD UREA NITROGEN 13 mg/dL (7-21); CALCIUM 9.1 mg/dL (8.4-10.5); CARBON DIOXIDE 22 mmol/L (21-33); CHLORIDE 102 mmol/L (98-107); GFR AFRICAN-AMERICAN > 60; GLUCOSE,RANDOM 128 mg/dL (70-110); MAGNESIUM 2.1 mg/dL (1.7-2.2); PHOSPHOROUS 2.4 mg/dL (2.5-4.5); SODIUM 134 mmol/L (132-148)
[2017-03-12 21:06] LABS: TROPONIN I 0.02 ng/mL
[2017-03-12] MEDS ORDERED: Insulin Detemir 100 units/ml Vial (Levemir) SC SCH ×2 (22:00)
[2017-03-13] MEDS ORDERED: Pantoprazole 40mg/100ml IVPB 100 ML IVPB SCH (06:00)
--- NOTE | 2017-03-13 06:30 | CP.PCM.PN ---
Subjective - Date & Time of Evaluation Date of Evaluation: 03/13/17 Time of Evaluation: 06:29 - Subjective Subjective: # 24 angiocath was inserted in right index finger base. Dx:Poor venous access. Objective - Vital Signs/Intake and Output Vital Signs (last 24 hours): Temp Pulse Resp BP Pulse Ox 98.5 F 106 H 20 139/90 98 03/12/17 17:17 03/12/17 22:00 03/12/17 17:17 03/12/17 17:17 03/12/17 17:17 - Medications Medications: Current Medications Enoxaparin Sodium (Lovenox) 40 mg SC DAILY [facility] PRN Reason: Protocol Last Admin: 03/12/17 09:12 Dose: 40 mg Erythromycin 500 mg/ Sodium (Chloride) 100 mls @ 100 mls/hr IVPB Q8H [facility] PRN Reason: Protocol Last Admin: 03/13/17 06:07 Dose: 100 mls/hr Sodium Chloride (Sodium Chloride 0.45%) 1,000 mls @ 150 mls/hr IV .Q6H40M [facility] Last Admin: 03/12/17 16:42 Dose: 150 mls/hr Insulin Detemir (Levemir) 26 unit SC HS [facility] Last Admin: 03/12/17 22:00 Dose: 26 unit Insulin Human Regular (Humulin R Low) 0 units SC ACHS [facility] PRN Reason: Protocol Last Admin: 03/12/17 22:00 Dose: Not Given Insulin Human Regular (Humulin R) 10 units SC AC [facility] Last Admin: 03/12/17 16:41 Dose: 10 units Ondansetron HCl (Zofran Inj) 4 mg IVP Q6H PRN PRN Reason: Nausea/Vomiting Last Admin: 03/12/17 19:37 Dose: 4 mg Pantoprazole Sodium (Protonix Inj) 40 mg IVP 0600 [facility] Last Admin: 03/13/17 05:20 Dose: 40 mg - Labs Labs: 03/12/17 20:15 03/12/17 20:15 PT 11.3 Seconds (9.9-11.8) 03/10/17 19:45 INR 1.05 (0.93-1.08) 03/10/17 19:45 APTT 28.3 Seconds (23.7-30.8) 03/10/17 19:45
--- NOTE | 2017-03-13 07:40 | CP.PCM.CON ---
<Wandy Navarro - Last Filed: 03/13/17 12:11> History of Present Illness - History of Present Illness History of Present Illness: Gastroenterology Fellow/PGY4 Consult Note 42 year old female with history of Uncontrolled T1 Diabetes, Gastroparesis, PUD , Hypertension, and recurrent UTIs presenting with nausea and vomiting. Patient describes intractable nausea and vomiting due to DKA on admission. She notes improved vomiting and bilateral upper abdominal discomfort until yesterday evening for dinner. She vomited three times after dinner with description of "unsettled, upset" stomach. She notes return of abdominal pain, pain scale 8/ 10. She recalls taking Protonix in the past for "stomach ulcers" but does not believe she takes them on a daily basis since prescribed in November 2016. Admits she attempted follow up with her [employer] at [facility] on 02/24 but they no longer take her insurance with last visit being in 2013. She notes previous use of Reglan with instruction to stop use by her [facility] physician due to making her "ill with upset stomach". She notes last bowel movement being last Monday despite daily food and liquid intake. Last EGD showed LA grade C esophagitis, food bezoar, and non-bleeding gastric antral and duodenal ulcers. No prior colonoscopy. Family- denies colon cancer, Diabetes, stomach cancer, Hypertension throughout family Social-denies tobacco, alcohol, illicit drug use Surgery-none Review of Systems - Review of Systems Review of Systems: A 12-point review of systems negative except for as above Past Patient History - Infectious Disease Hx of Infectious Diseases: None - Tetanus Immunizations Tetanus Immunization: Unknown - Past Social History Smoking Status: Never Smoked - CARDIAC Hx Cardiac Disorders: Yes Hx Hypertension: Yes - PULMONARY Hx Respiratory Disorders: No - NEUROLOGICAL Hx Neurological Disorder: Yes (NEUROPATHY) - HEENT Hx HEENT Problems: Yes Other/Comment: wears glasses-nearsighted - RENAL Hx Chronic Kidney Disease: No - ENDOCRINE/METABOLIC Hx Endocrine Disorders: Yes Hx Diabetes Mellitus Type 1: Yes (hx DKA) - HEMATOLOGICAL/ONCOLOGICAL Hx Blood Disorders: No - INTEGUMENTARY Hx Dermatological Problems: Yes (hx diabetic foot ulcers) - MUSCULOSKELETAL/RHEUMATOLOGICAL Hx Musculoskeletal Disorders: Yes Hx Falls: No Hx Osteomyelitis: Yes (LEFT FOOT '14) - GASTROINTESTINAL Hx Gastrointestinal Disorders: Yes (gastritis,gastroparesis) Hx Gastroesophageal Reflux: Yes Other/Comment: duodenal ulcers - GENITOURINARY/GYNECOLOGICAL Hx Urinary Tract Infection: Yes - PSYCHIATRIC Hx Psychophysiologic Disorder: Yes Hx Anxiety: Yes Hx Substance Use: No - SURGICAL HISTORY Hx Surgeries: No Hx Cardiac Catheterization: No - ANESTHESIA Hx Anesthesia: No Hx Anesthesia Reactions: No Hx Malignant Hyperthermia: No Meds Allergies/Adverse Reactions: Allergies Allergy/AdvReac Type Severity Reaction Status Date / Time metoclopramide HCl AdvReac VOMITING Verified 03/10/17 19:13 [From Reglan] - Medications Medications: Current Medications Enoxaparin Sodium (Lovenox) 40 mg SC DAILY [facility] PRN Reason: Protocol Last Admin: 03/12/17 09:12 Dose: 40 mg Erythromycin 500 mg/ Sodium (Chloride) 100 mls @ 100 mls/hr IVPB Q8H [facility] PRN Reason: Protocol Last Admin: 03/13/17 06:07 Dose: 100 mls/hr Sodium Chloride (Sodium Chloride 0.45%) 1,000 mls @ 150 mls/hr IV .Q6H40M [facility] Last Admin: 03/12/17 16:42 Dose: 150 mls/hr Insulin Detemir (Levemir) 26 unit SC HS [facility] Last Admin: 03/12/17 22:00 Dose: 26 unit Insulin Human Regular (Humulin R Low) 0 units SC ACHS [facility] PRN Reason: Protocol Last Admin: 03/12/17 22:00 Dose: Not Given Insulin Human Regular (Humulin R) 10 units SC AC [facility] Last Admin: 03/12/17 16:41 Dose: 10 units Ondansetron HCl (Zofran Inj) 4 mg IVP Q6H PRN PRN Reason: Nausea/Vomiting Last Admin: 03/12/17 19:37 Dose: 4 mg Pantoprazole Sodium (Protonix Inj) 40 mg IVP 0600 [facility] Last Admin: 03/13/17 05:20 Dose: 40 mg Physical Exam - Constitutional Appears: Non-toxic, No Acute Distress - Head Exam Head Exam: ATRAUMATIC, NORMOCEPHALIC - Eye Exam Eye Exam: EOMI, PERRL Pupil Exam: PERRL. absent: Miosis, Mydriatic - ENT Exam ENT Exam: Mucous Membranes Moist, Normal Oropharynx - Neck Exam Neck exam: Positive for: Full Rom, Normal Inspection - Respiratory Exam Respiratory Exam: Clear to Auscultation Bilateral. absent: Rales, Rhonchi, Wheezes - Cardiovascular Exam Cardiovascular Exam: RRR, +S1, +S2. absent: Gallop, Rubs - GI/Abdominal Exam GI & Abdominal Exam: Normal Bowel Sounds, Soft. absent: Distended, Firm, Guarding, Organomegaly, Rebound, Rigid, Tenderness Additional comments: mild discomfort LUQ to palpation - Extremities Exam Extremities exam: Positive for: full ROM. Negative for: pedal edema - Neurological Exam Neurological exam: Alert - Psychiatric Exam Psychiatric exam: Normal Affect, Normal Mood - Skin Skin Exam: Dry, Intact, Normal Color, Warm Results - Vital Signs Recent Vital Signs: Last Vital Signs Temp 98.5 F 03/12/17 17:17 Pulse 106 H 03/12/17 22:00 Resp 20 03/12/17 17:17 BP 139/90 03/12/17 17:17 Pulse Ox 98 03/12/17 17:17 - Labs Result Diagrams: 03/13/17 08:30 03/13/17 08:30 Labs: Laboratory Results - last 24 hr 03/12/17 03/12/17 07:00 20:15 WBC 6.3 6.3 RBC 3.57 4.06 Hgb 9.7 L 10.9 L Hct 28.9 L 33.1 L MCV 81.0 81.5 MCH 27.2 26.8 MCHC 33.6 32.9 RDW 15.7 H 15.6 H Plt Count 339 273 MPV 8.7 9.5 Gran % 60.7 58.4 Lymph % (Auto) 28.1 32.7 [place] % (Auto) 9.7 H 7.3 H Eos % (Auto) 1.3 L 1.4 L Baso % (Auto) 0.2 0.2 Gran # 3.84 3.65 Lymph # 1.8 2.1 [place] # 0.6 0.5 Eos # 0.1 0.1 Baso # 0.01 0.01 Sodium 131 L 134 Potassium 4.0 4.0 Chloride 100 102 Carbon Dioxide 22 22 Anion Gap 13 14 BUN 13 13 Creatinine 0.9 0.9 Est GFR ( Amer) > 60 > 60 Est GFR (Non-Af Amer) > 60 > 60 Random Glucose 274 H 128 H Calcium 8.4 9.1 Phosphorus 2.4 L Magnesium 2.1 Total Bilirubin 0.7 AST 19 ALT 33 Alkaline Phosphatase 70 Troponin I 0.02 D Total Protein 6.6 Albumin 3.3 Globulin 3.4 Albumin/Globulin Ratio 1.0 L Triglycerides 68 Cholesterol 221 H LDL Cholesterol Direct 89 HDL Cholesterol 86 H Thyroxine (T4) 8.9 TSH 3rd Generation 0.85 Cortisol AM Sample 14.1 Assessment & Plan - Assessment and Plan (Free Text) Assessment: 42 year old female with history of Uncontrolled T1 Diabetes, Gastroparesis, PUD , Hypertension, and recurrent UTIs presenting with nausea and vomiting. Active treatmetn of uncontrolled T1DM with resolved DKA. GI consultation for abdominal pain with vomiting yesterday evening. Last EGD 12/12/16 showed LA grade C esophagitis, food bezoar, and non-bleeding gastric antral and duodenal ulcers. No prior colonoscopy. Plan: >pain improved >no further vomiting >on clear liquids, advance as tolerated >on erythromycin >supportive care: anti-emetics >continue PPI- history of duodenal/gastric ulcers >established GI at [facility]- outpatient follow up >will follow clinical course <Uzair Trejo - Last Filed: 03/13/17 12:20> Meds - Medications Medications: Current Medications Amlodipine Besylate (Norvasc) 2.5 mg PO DAILY [facility] Last Admin: 03/13/17 09:28 Dose: 2.5 mg Enoxaparin Sodium (Lovenox) 40 mg SC DAILY [facility] PRN Reason: Protocol Last Admin: 03/13/17 09:28 Dose: 40 mg Erythromycin 500 mg/ Sodium (Chloride) 100 mls @ 100 mls/hr IVPB Q8H [facility] PRN Reason: Protocol Last Admin: 03/13/17 06:07 Dose: 100 mls/hr Sodium Chloride (Sodium Chloride 0.45%) 1,000 mls @ 150 mls/hr IV .Q6H40M [facility] Last Admin: 03/12/17 16:42 Dose: 150 mls/hr Insulin Detemir (Levemir) 26 unit SC HS [facility] Last Admin: 03/12/17 22:00 Dose: 26 unit Insulin Human Regular (Humulin R Low) 0 units SC ACHS [facility] PRN Reason: Protocol Last Admin: 03/13/17 08:09 Dose: Not Given Insulin Human Regular (Humulin R) 10 units SC AC [facility] Last Admin: 03/13/17 09:27 Dose: 10 units Ondansetron HCl (Zofran Inj) 4 mg IVP Q6H PRN PRN Reason: Nausea/Vomiting Last Admin: 03/12/17 19:37 Dose: 4 mg Pantoprazole Sodium (Protonix Inj) 40 mg IVP 0600 MICHELLE Last Admin: 03/13/17 05:20 Dose: 40 mg Results - Vital Signs Recent Vital Signs: Last Vital Signs Temp 98.5 F 03/12/17 17:17 Pulse 106 H 03/12/17 22:00 Resp 20 03/12/17 17:17 BP 160/97 H 03/13/17 09:28 Pulse Ox 98 03/12/17 17:17 - Labs Result Diagrams: 03/13/17 08:30 03/13/17 08:30 Labs: Laboratory Results - last 24 hr 03/12/17 03/12/17 03/13/17 07:00 20:15 08:30 WBC 6.3 7.0 RBC 4.06 3.97 Hgb 10.9 L 10.7 L Hct 33.1 L 31.8 L MCV 81.5 80.1 MCH 26.8 27.0 MCHC 32.9 33.6 RDW 15.6 H 15.5 H Plt Count 273 369 MPV 9.5 8.9 Gran % 58.4 48.0 L Lymph % (Auto) 32.7 40.1 H [place] % (Auto) 7.3 H 9.7 H Eos % (Auto) 1.4 L 2.1 Baso % (Auto) 0.2 0.1 Gran # 3.65 3.35 Lymph # 2.1 2.8 [place] # 0.5 0.7 H Eos # 0.1 0.2 Baso # 0.01 0.01 D-Dimer, Quantitative 1.34 H Sodium 134 136 Potassium 4.0 3.3 L Chloride 102 103 Carbon Dioxide 22 26 Anion Gap 14 10 BUN 13 10 Creatinine 0.9 0.8 Est GFR ( Amer) > 60 > 60 Est GFR (Non-Af Amer) > 60 > 60 Random Glucose 128 H 45 L* D Hemoglobin A1c 11.2 H Calcium 9.1 9.1 Phosphorus 2.4 L Magnesium 2.1 Total Bilirubin 0.7 AST 29 ALT 28 Alkaline Phosphatase 84 Troponin I 0.02 D < 0.01 D Total Protein 7.3 Albumin 3.7 Globulin 3.6 Albumin/Globulin Ratio 1.0 L TSH 3rd Generation 0.9 Attending/Attestation - Attestation I have personally seen and examined this patient.: Yes I have fully participated in the care of the patient.: Yes I have reviewed all pertinent clinical information: Yes Notes (Text): 03/13/17 12:18 42 year old female with h/o DMI, Gastroparesis, PUD, HTN, h/o erosive esophagitis admitted with DKA, also with N/V. 1. Gastroparesis 2. History of erosive esophagitis Plan: -clear liquid diet and advance as tolerated -IV hydration and glycemic control -continue erythromycin for gastroparesis -follow up with her outpatient gi -small frequent meals -continue PPI
[2017-03-13] MEDS: Insulin Reg-LOW-Coverage SC SCH ×4 (08:09→21:49)
--- NOTE | 2017-03-13 08:38 | PN ---
DATE: 03/13/2017 I saw the patient resting in bed. She was sleeping. I woke her up this morning. She was fairly com fortable. She is still on n.p.o. She is not nauseous at this time. No complaints at this time. PHYSICAL EXAMINATION: VITAL SIGNS: Temp 98.5, 106 pulse, 139/90 blood pressure. She also had a 156/93 blood pressure. I will put her on Norvasc 2.5 one daily. Her respiratory rate is 20 and 98% O2 sat on room air. HEAD: Atraumatic, normocephalic. THROAT: Moist. NECK: Supple. HEART: Regular rate. LUNGS: Clear to auscultation. ABDOMEN: At this time, is soft, nontender, positive bowel sounds. No guarding, no rebound. It is t he best it has been. EXTREMITIES: Have no edema. I am going to increase her diet to clears this morning. She is currently on erythromycin IV, insulin which was adjusted by the bilingual account manager, Lovenox, Prot sivan, IV fluids and Zofran. LAST LABORATORIES: She has a 6.3 white count, 10.9 hemoglobin, 33.1 hematocrit with 273 platelets. Sodium 134, potassium 4, BUN 13, creatinine 0.9, GFR is greater than 60, sugar is 128, calcium is 9.1 , total protein 6.6. My plan for her is to increase her diet to clears. I am trying to get her to eat so we can discharge her and change her to tablets. Hopefully, she will do well today with clear fluids and not throw up . She is being seen by endocrinology and GI. She has to eventually get back to [facility]. I told her just go to the ER, get put in that way when these symptoms come back. She was living ther for a while and she can stay with family and I think that will be her plan once we get her feeling better here. She is here for diabetic ketoacidosis, diabetes, gastroparesis, abdominal pain and hype rtension. David Theodore DO cc: [id number] TT: 03/13/2017 08:38:19 Confirmation # [id number] Dictation # [id number] en
[2017-03-13 08:46] LABS: ADD MANUAL DIFF? NO
[2017-03-13 08:50] LABS: BASO # 0.01 K/mm3 (0.0-2.0); BASO % 0.1 % (0.0-3.0); EOS # 0.2 (0.0-0.7); EOS % 2.1 % (1.5-5.0); GRAN # 3.35 (1.4-6.5); HEMATOCRIT 31.8 % (36.0-48.0); LYMPH # 2.8 (1.2-3.4); LYMPH % 40.1 % (22.0-35.0); MEAN CELL VOLUME 80.1 fL (80.0-105.0); MEAN CORPUSCULAR HGB CONC 33.6 g/dl (31.0-37.0); MEAN PLATELET VOLUME 8.9 fl (7.0-11.0); MONO # 0.7 (0.1-0.6); MONO % 9.7 % (1.0-6.0); PLATELET COUNT 369 10^3/uL (120.0-450.0); RED CELL DISTRIBUTION WIDTH 15.5 % (11.5-14.5)
[2017-03-13 09:19] LABS: ALKALINE PHOSPHATASE 84 U/L (38-133); ALT/SGPT 28 U/L (7-56); AST/SGOT 29 U/L (15-39); BILIRUBIN,TOTAL 0.7 mg/dL (0.2-1.3); BLOOD UREA NITROGEN 10 mg/dL (7-21); CALCIUM 9.1 mg/dL (8.4-10.5); CARBON DIOXIDE 26 mmol/L (21-33); CHLORIDE 103 mmol/L (95-110); GFR AFRICAN-AMERICAN > 60; POTASSIUM 3.3 mmol/L (3.6-5.0); SODIUM 136 mmol/L (132-148); TOTAL PROTEIN 7.3 g/dL (5.8-8.3)
[2017-03-13] MEDS: Insulin Regular 1 UNITS/0.01 ML ML SC SCH ×3 (09:27→17:30)
[2017-03-13] MEDS: Enoxaparin 40 mg Syringe SC SCH (09:28)
[2017-03-13 09:39] LABS: GLUCOSE,RANDOM 45 mg/dL (70-110)
[2017-03-13 09:42] LABS: TROPONIN I < 0.01 ng/mL
--- NOTE | 2017-03-13 10:55 | CON ---
DATE: 03/13/2017 HISTORY OF PRESENT ILLNESS: The patient is a 42-year-old woman who presents with diabetes mellitus, out of control. The patient developed diffuse pain with anxiety yesterday. PAST MEDICAL HISTORY: Notable for diabetes mellitus as well as gastroparesis. Her diet has been int ermittent and she has taken her insulin intermittently. The patient is free of cardiac disease. She is currently in bed, awake, alert, no shortness of breat h, no chest pain. No previous cardiac history is noted. SOCIAL HISTORY: Denies smoking. REVIEW OF SYSTEMS: A 14-point was reviewed. No cardiac symptomatology is noted. PHYSICAL EXAMINATION: VITAL SIGNS: Blood pressure is from 139-160 systolic, the heart rate is 100. NECK: Negative JVD. LUNGS: Without rales. HEART: Revealed S1, S2. EXTREMITIES: Without edema. EKG is within normal limits. LABORATORIES: Reveal hemoglobin of 10.7. The glucose is down to 45. Troponins are negative x 2. IMPRESSION: 1. Diabetes, out of control. 2. Hypertension. 3. Gastroparesis. 4. No evidence for acute coronary syndrome. Given these findings, there is no evidence for active cardiac disease. The patient is awaiting for gastroparesis surgery at [facility]. I have discussed with her ab out the need for consistent food as well as insulin intake. No further cardiac workup is necessary at this time. Jim Field MD cc: [id number] TT: 03/13/2017 10:54:55 Confirmation # [id number] Dictation # [id number] en
--- NOTE | 2017-03-13 11:46 | CARD ---
APPROVED REPORT EKG Measurement Heart [id number] ID [id number] <Conclusion> Sinus tachycardia Possible Left atrial enlargement Cannot rule out Anterior infarct, age undetermined Abnormal ECG
--- NOTE | 2017-03-13 12:34 | CARD ---
APPROVED REPORT EKG Measurement Heart [id number] <Conclusion> Sinus tachycardia Otherwise normal ECG
--- NOTE | 2017-03-13 16:15 | PN ---
DATE: 03/13/2017 ROOM: 364 This is a 42-year-old female with recent uncontrolled type 1 insulin-dependent diabetes, presenting h ere with intractable vomiting related to resurgence of diabetic gastroparesis and continues to have v ariable and suboptimal oral intake at this time. Her latest chemistries show a BUN of 10, sodium 136 , potassium 3.3, chloride 103, CO2 of 26, glucose 45, and creatinine 0.8. So, at this time, we will modify her current insulin regimen because of the variability of her oral i ntake and lower the Levemir to 16 units subQ at bedtime daily to start tonight. We will also lower t he regular insulin to 3 units subQ t.i.d. before meals as ordered. We will titrate incrementally as indicated to optimize metabolic control. We will also continue the IV hydration as ordered. We will obtain serial chemistries and supplement accordingly as needed. We will follow and advise according ly. Tamara Campo MD cc: [id number] TT: 03/13/2017 16:14:35 Confirmation # [id number] Dictation # [id number]
[2017-03-13] MEDS ORDERED: Insulin Regular 1 UNITS/0.01 ML ML SC SCH (16:30)
[2017-03-13] MEDS ORDERED: Insulin Detemir 100 units/ml Vial (Levemir) SC SCH (22:00)
[2017-03-14 01:18] VITALS: RESP 20
[2017-03-14 07:47] LABS: ADD MANUAL DIFF? NO
[2017-03-14 07:55] LABS: EOS # 0.1 (0.0-0.7); EOS % 2.2 % (1.5-5.0); GRAN # 2.43 (1.4-6.5); GRAN % 40.3 % (50.0-68.0); HEMATOCRIT 31.6 % (36.0-48.0); LYMPH # 2.9 (1.2-3.4); LYMPH % 47.7 % (22.0-35.0); MEAN CELL VOLUME 81.7 fL (80.0-105.0); MEAN CORPUSCULAR HEMOGLOBIN 26.4 pg (25.0-35.0); MEAN CORPUSCULAR HGB CONC 32.3 g/dl (31.0-37.0); MEAN PLATELET VOLUME 8.9 fl (7.0-11.0); MONO # 0.6 (0.1-0.6); MONO % 9.8 % (1.0-6.0); PLATELET COUNT 348 10^3/uL (120.0-450.0); RED CELL DISTRIBUTION WIDTH 15.9 % (11.5-14.5)
[2017-03-14 08:07] LABS: ALKALINE PHOSPHATASE 72 U/L (38-133); ALT/SGPT 33 U/L (7-56); AST/SGOT 21 U/L (15-39); BILIRUBIN,TOTAL 0.6 mg/dL (0.2-1.3); BLOOD UREA NITROGEN 8 mg/dL (7-21); CARBON DIOXIDE 29 mmol/L (21-33); CHLORIDE 102 mmol/L (98-107); GFR AFRICAN-AMERICAN > 60; GLUCOSE,RANDOM 57 mg/dL (70-110); SODIUM 139 mmol/L (132-148); TOTAL PROTEIN 6.9 g/dL (5.8-8.3)
[2017-03-14] MEDS: Insulin Regular 1 UNITS/0.01 ML ML SC SCH ×2 (08:07→11:56)
[2017-03-14] MEDS: Insulin Reg-LOW-Coverage SC SCH ×2 (08:08→11:57)
--- NOTE | 2017-03-14 08:43 | CP.PCM.PN ---
<RosalindBurtonWandy - Last Filed: 03/14/17 13:08> Subjective - Date & Time of Evaluation Date of Evaluation: 03/14/17 Time of Evaluation: 08:39 - Subjective Subjective: Gastroenterology Fellow/PGY4 Progress Note patient states she feels well today. Resolved abdominal pain. States she is hungry. Normal formed bowel movement yesterday. A 12-point review of systems negative except for as above. Objective - Vital Signs/Intake and Output Vital Signs (last 24 hours): Temp Pulse Resp BP Pulse Ox 97.9 F 104 H 20 128/81 100 03/14/17 00:00 03/14/17 02:00 03/14/17 00:00 03/14/17 00:00 03/14/17 00:00 Intake and Output: 03/14/17 03/14/17 06:59 18:59 Intake Total 660 Balance 660 - Medications Medications: Current Medications Amlodipine Besylate (Norvasc) 2.5 mg PO DAILY [facility] Last Admin: 03/13/17 09:28 Dose: 2.5 mg Enoxaparin Sodium (Lovenox) 40 mg SC DAILY [facility] PRN Reason: Protocol Last Admin: 03/13/17 09:28 Dose: 40 mg Erythromycin 500 mg/ Sodium (Chloride) 100 mls @ 100 mls/hr IVPB Q8H MICHELLE PRN Reason: Protocol Last Admin: 03/13/17 21:50 Dose: 100 mls/hr Sodium Chloride (Sodium Chloride 0.45%) 1,000 mls @ 150 mls/hr IV .Q6H40M [facility] Last Admin: 03/12/17 16:42 Dose: 150 mls/hr Insulin Detemir (Levemir) 16 unit SC HS [facility] Last Admin: 03/13/17 21:50 Dose: 16 unit Insulin Human Regular (Humulin R Low) 0 units SC ACHS [facility] PRN Reason: Protocol Last Admin: 03/14/17 08:08 Dose: Not Given Insulin Human Regular (Humulin R) 3 units SC AC [facility] Last Admin: 03/14/17 08:07 Dose: Not Given Ondansetron HCl (Zofran Inj) 4 mg IVP Q6H PRN PRN Reason: Nausea/Vomiting Last Admin: 03/12/17 19:37 Dose: 4 mg Pantoprazole Sodium (Protonix Inj) 40 mg IVP 0600 MICHELLE Last Admin: 03/13/17 05:20 Dose: 40 mg - Labs Labs: 03/14/17 07:00 03/14/17 07:00 PT 11.3 Seconds (9.9-11.8) 03/10/17 19:45 INR 1.05 (0.93-1.08) 03/10/17 19:45 APTT 28.3 Seconds (23.7-30.8) 03/10/17 19:45 - Constitutional Appears: Non-toxic, No Acute Distress - Head Exam Head Exam: ATRAUMATIC, NORMOCEPHALIC - Eye Exam Eye Exam: EOMI, PERRL Pupil Exam: PERRL. absent: Miosis, Mydriatic - ENT Exam ENT Exam: Mucous Membranes Moist, Normal Oropharynx - Neck Exam Neck Exam: Full ROM, Normal Inspection - Respiratory Exam Respiratory Exam: Clear to Ausculation Bilateral. absent: Rales, Rhonchi, Wheezes - Cardiovascular Exam Cardiovascular Exam: RRR, +S1, +S2. absent: Gallop, Rubs - GI/Abdominal Exam GI & Abdominal Exam: Soft, Normal Bowel Sounds. absent: Distended, Firm, Guarding, Rigid, Tenderness, Organomegaly, Rebound - Extremities Exam Extremities Exam: Full ROM. absent: Pedal Edema - Neurological Exam Neurological Exam: Alert, Awake - Psychiatric Exam Psychiatric exam: Normal Affect, Normal Mood - Skin Skin Exam: Dry, Intact, Normal Color, Warm Assessment and Plan - Assessment and Plan (Free Text) Assessment: 42 year old female with history of Uncontrolled T1 Diabetes, Gastroparesis, PUD , Hypertension, and recurrent UTIs presenting with abdominal pain, nausea, and vomiting. Active treatment of uncontrolled T1DM with resolved DKA. Last EGD 12/12 showed LA grade C esophagitis, food bezoar, and non-bleeding gastric antral and duodenal ulcers. No prior colonoscopy. Plan: >advance to cardiac diabetic diet >small, frequent meals >anti-emetics PRN >continue PPI >outpatient follow up with established GI at [facility] >thank you for opportunity to participate in the care of this patient <Uzair Trejo - Last Filed: 03/14/17 16:06> Objective - Vital Signs/Intake and Output Vital Signs (last 24 hours): Temp Pulse Resp BP Pulse Ox 97.8 F 94 H 20 115/70 97 03/14/17 06:00 03/14/17 06:00 03/14/17 06:00 03/14/17 06:00 03/14/17 06:00 Intake and Output: 03/14/17 03/14/17 06:59 18:59 Intake Total 660 Balance 660 - Labs Labs: 03/14/17 07:00 03/14/17 07:00 PT 11.3 Seconds (9.9-11.8) 03/10/17 19:45 INR 1.05 (0.93-1.08) 03/10/17 19:45 APTT 28.3 Seconds (23.7-30.8) 03/10/17 19:45 Attending/Attestation - Attestation I have personally seen and examined this patient.: Yes I have fully participated in the care of the patient.: Yes I have reviewed all pertinent clinical information, including history, physical exam and plan: Yes Notes (Text): 03/14/17 16:05 42 year old female with h/o DMI, Gastroparesis, PUD, HTN, h/o erosive esophagitis admitted with DKA, also with N/V. 1. Gastroparesis 2. History of erosive esophagitis Plan: -diet as tolerated -s/p erythromycin for gastroparesis -follow up with her outpatient gi -small frequent meals -continue PPI -ok to go home and follow up in [facility]
[2017-03-14 10:04] VITALS: BP 115/70; PULSE 94; TEMP 97.8; O2SAT 97
[2017-03-14] MEDS: Enoxaparin 40 mg Syringe SC SCH (10:34)
[2017-03-14] MEDS ORDERED: Insulin Regular 1 UNITS/0.01 ML ML SC ONE (11:50)
--- NOTE | 2017-03-14 12:27 | DS ---
SUBJECTIVE: See her resting in bed. She is doing much better. She is eating, keeping it down. No nausea, vomiting, and she is in good spirits. She knows she is going to be discharged today. I am h oping she ends in [place] in the next week to finish up her gastroparesis and her stomach evaluation. PHYSICAL EXAMINATION: VITAL SIGNS: 97.9 temp, 104 pulse, 120/81 blood pressure, 20 respiratory rate, 100% O2 sat on room a ir. HEENT: Head is atraumatic, normocephalic. HEART: Regular rate. LUNGS: Clear to auscultation. ABDOMEN: Soft, positive bowel sounds, no guarding, no rebound, no CVA tenderness. EXTREMITIES: No edema. MEDICATIONS: She has medications. She will be going home on her erythromycin for 7 days, Levemir, N orvasc, Protonix and Zofran. I will write her prescriptions. She is going to follow up with her GI doctor in the outpatient this week. Hopefully she will get to [facility] where they know how to fix her situation. She has a 6 white count, 10.2 hemoglobin, 31.6 hematocrit, 348 platelets. Sod ium 139, potassium is 4.0, BUN is 8, creatinine 0.8, GFR is greater than 60, sugar is 57, calcium is 9, total bili is 0.6, AST is 21, ALT is 33, alk phos 72, total protein 6.9. I am going to be decreasing her Levemir to 12 units at nighttime from 16 because her last 3 blood sug ars have been under 60. She will follow up on the outpatient with her primary care doctor, follow up with Dr. Campo, the commercial coordinator and Dr. Field. The patient is being discharged today. She has diabetes, hypertension, gastroparesis and hopefully s he will do well. David Theodore DO cc: [id number] TT: 03/14/2017 12:26:57 an
--- NOTE | 2017-03-14 12:56 | CP.PCM.CON ---
History of Present Illness - History of Present Illness History of Present Illness: 42 year old female with history of Uncontrolled T1 Diabetes, Gastroparesis, PUD , Hypertension, and recurrent UTIs seen at bedside with attending Dr. Carrillo for right foot painful callus. Patient appears in NAD and AAOx3. patient states that she sees Dr. Hernandez whenever she has any pedal complaints. Patient denies any other complaints at this time. She denies n/f/v/c/d/sob. Review of Systems - Constitutional Constitutional: As Per HPI - EENT Eyes: As Per HPI Past Patient History - Infectious Disease Hx of Infectious Diseases: None - Tetanus Immunizations Tetanus Immunization: Unknown - Past Social History Smoking Status: Never Smoked - CARDIAC Hx Cardiac Disorders: Yes Hx Hypertension: Yes - PULMONARY Hx Respiratory Disorders: No - NEUROLOGICAL Hx Neurological Disorder: Yes (NEUROPATHY) - HEENT Hx HEENT Problems: Yes Other/Comment: wears glasses-nearsighted - RENAL Hx Chronic Kidney Disease: No - ENDOCRINE/METABOLIC Hx Endocrine Disorders: Yes Hx Diabetes Mellitus Type 1: Yes (hx DKA) - HEMATOLOGICAL/ONCOLOGICAL Hx Blood Disorders: No - INTEGUMENTARY Hx Dermatological Problems: Yes (hx diabetic foot ulcers) - MUSCULOSKELETAL/RHEUMATOLOGICAL Hx Musculoskeletal Disorders: Yes Hx Falls: No Hx Osteomyelitis: Yes (LEFT FOOT '14) - GASTROINTESTINAL Hx Gastrointestinal Disorders: Yes (gastritis,gastroparesis) Hx Gastroesophageal Reflux: Yes Other/Comment: duodenal ulcers - GENITOURINARY/GYNECOLOGICAL Hx Urinary Tract Infection: Yes - PSYCHIATRIC Hx Psychophysiologic Disorder: Yes Hx Anxiety: Yes Hx Substance Use: No - SURGICAL HISTORY Hx Surgeries: No Hx Cardiac Catheterization: No - ANESTHESIA Hx Anesthesia: No Hx Anesthesia Reactions: No Hx Malignant Hyperthermia: No Meds Home Medications: Home Medication List Medication Instructions Recorded Confirmed Type Erythromycin [Erythrocin] 500 mg PO BID #14 vial 03/14/17 Rx Insulin Detemir [Levemir] 12 unit SC HS #1 unit 03/14/17 Rx Ondansetron [Zofran Inj] 4 mg PO Q6H PRN #10 vial 03/14/17 Rx Pantoprazole [Protonix Inj] 40 mg PO 0600 #30 vial 03/14/17 Rx amLODIPine [Norvasc] 2.5 mg PO DAILY #30 tab 03/14/17 Rx Allergies/Adverse Reactions: Allergies Allergy/AdvReac Type Severity Reaction Status Date / Time metoclopramide HCl AdvReac VOMITING Verified 03/10/17 19:13 [From Reglan] Physical Exam - Constitutional Appears: Well, Non-toxic, No Acute Distress - Extremities Exam Additional comments: Vasc: palpable pedal pulses, b/l, TG wnl, CFT < 3 sec to all digits, no edema neuro: grossly intact derm: no edema, no erythema, no open lesions, hyperkeratotic lesion noted lateral aspect of 5th digit of right foot, hyperkeratotic lesion noted to dorsum right midfoot, no clinical signs of infection, no ascending cellulitis ortho: mild pain to palpation of hyperkeratotic lesion - Neurological Exam Neurological exam: Alert, Oriented x3 - Psychiatric Exam Psychiatric exam: Normal Affect, Normal Mood Results - Vital Signs Recent Vital Signs: Last Vital Signs Temp 97.8 F 03/14/17 06:00 Pulse 94 H 03/14/17 06:00 Resp 20 03/14/17 06:00 BP 115/70 03/14/17 06:00 Pulse Ox 97 03/14/17 06:00 - Labs Result Diagrams: 03/14/17 07:00 03/14/17 07:00 Labs: Laboratory Results - last 24 hr 03/12/17 03/14/17 03/14/17 07:00 07:00 07:00 WBC 6.0 RBC 3.87 Hgb 10.2 L Hct 31.6 L MCV 81.7 MCH 26.4 MCHC 32.3 RDW 15.9 H Plt Count 348 MPV 8.9 Gran % 40.3 L Lymph % (Auto) 47.7 H [place] % (Auto) 9.8 H Eos % (Auto) 2.2 Baso % (Auto) 0.0 Gran # 2.43 Lymph # 2.9 [place] # 0.6 Eos # 0.1 Baso # 0.00 Sodium 139 Potassium 4.0 Chloride 102 Carbon Dioxide 29 Anion Gap 12 BUN 8 Creatinine 0.8 Est GFR ( Amer) > 60 Est GFR (Non-Af Amer) > 60 Random Glucose 57 L Calcium 9.0 Total Bilirubin 0.6 AST 21 ALT 33 Alkaline Phosphatase 72 Total Protein 6.9 Albumin 3.4 Globulin 3.5 Albumin/Globulin Ratio 1.0 L ACTH 11 Assessment & Plan - Assessment and Plan (Free Text) Assessment: 42 /o female seen at bedside for painful hyperkeratotic lesions secondary to diabetes Plan: patient evaluated and chart reviewed seen at bedside with attending Dr. Carrillo labs and vitals reviewed excisional debrideement using a #15 blade of right foot hyperkeratotic lesion on 5th digit down to healthy granular tissue patient tolerated procedure well with no complications applied optifoam to right foot podiatry will continue to monitor while patient remains in house
--- NOTE | 2017-03-15 22:08 | PN ---
DATE: 03/14/2017 This is a 42-year-old female with recent uncontrolled type 1 insulin-dependent diabetes, presenting h ere for recurrent diabetic gastroparesis and marked exacerbation with intractable nausea, dyspepsia, and vomiting, and is being followed closely now for metabolic management. Her glycemic levels are fl uctuating because of the variability of her oral intake and the latest chemistries showed a BUN of 8, sodium 139, potassium 4.0, chloride 102, CO2 29, glucose 57 and creatinine 0.8. Her glucose levels have ranged from 165 to 61 and 497 today because apparently the nursing staff held the morning dose r egimen with an expected hyperglycemic acceleration in a type 1 diabetic. So at this time, we will co ntinue the same basal and bolus insulin regimen to allow for dose equilibration and keep her on the r egular insulin given as 10 units subQ t.i.d. before meals as ordered. We will continue the Levemir g iven as 30 units subQ at bedtime daily as given. We will titrate incrementally as indicated to optim ize metabolic control. We will follow. Tamara Campo MD cc: [id number] TT: 03/15/2017 22:08:12 Confirmation # [id number] Dictation # [id number] ln
== END 2017-03-14 12:41 | disposition home or self-care (01) | DRG 294 ==
LOC: ED 18:52 → ERH 21:08 → CCU 23:24 → 3RNO 03-11 16:20
PROVIDERS: ADMIT Family Medicine; ATTEND Family Medicine
DX: E10.10 Type 1 diabetes mellitus with ketoacidosis without coma (principal); K31.84 Gastroparesis; E10.42 Type 1 diabetes mellitus with diabetic polyneuropathy; I11.9 Hypertensive heart disease without heart failure; E10.51 Type 1 diabetes mellitus with diabetic peripheral angiopathy without gangrene; E86.0 Dehydration; E10.43 Type 1 diabetes mellitus with diabetic autonomic (poly)neuropathy; F51.02 Adjustment insomnia; K27.9 Peptic ulcer, site unspecified, unspecified as acute or chronic, without hemorrhage or perforation; K20.8 Other esophagitis; F32.9 Major depressive disorder, single episode, unspecified; E78.5 Hyperlipidemia, unspecified; F41.1 Generalized anxiety disorder; L85.9 Epidermal thickening, unspecified; R00.0 Tachycardia, unspecified; Z79.4 Long term (current) use of insulin

== ENCOUNTER 2017-03-19 07:01 | Inpatient (IN) | payer MEDICAID ==
[2017-03-19] MEDS ORDERED: Sodium Chloride 0.9% 1,000 ML IV STA ×3 (07:25→11:14)
[2017-03-19] MEDS ORDERED: Morphine 4 mg/ml ISec IVP STA (07:25)
--- NOTE | 2017-03-19 07:30 | ED PDOC ---
Arrival/HPI - General Time Seen by Provider: 03/19/17 07:05 Historian: Patient - History of Present Illness Narrative History of Present Illness (Text): 03/19/17 07:23 Shanelle Iniguez is a 42 year old female, whose past medical history includes gastroparesis, diabetes, hypertension, gastritis, gastric/duodenal ulcers, and GERD, presents to the emergency department complaining of 4 day duration of epigastric abdominal pain associated with nausea and non-bloody, non-bilious vomiting. States that pain radiates towards the chest and right upper arm. Patient states she has decreased appetite due to symptoms and reports she has been drinking fluids and Pedialyte. States symptoms are similar to her pervious gastroparesis episodes. She also reports of palpitations since last night. Denies fever, chills, headache, dizziness, difficulty breathing, diarrhea, urinary symptoms, or any other complaints at this time. PMD: Dr. Theodore GI: . Time/Duration: < week (4 days ) Symptom Onset: Gradual Symptom Course: Worsening Severity Level: Mild Activities at Onset: Light Past Medical History - Provider Review Nursing Documentation Reviewed: Yes - Infectious Disease Hx of Infectious Diseases: None - Tetanus Immunization Tetanus Immunization: Unknown - Past Medical History Past Medical History: No Previous - Cardiac Hx Cardiac Disorders: Yes Hx Hypertension: Yes - Pulmonary Hx Respiratory Disorders: No - Neurological Hx Neurological Disorder: Yes (NEUROPATHY) - HEENT Hx HEENT Disorder: Yes Other/Comment: wears glasses-nearsighted - Renal Hx Renal Disorder: No - Endocrine/Metabolic Hx Endocrine Disorders: Yes Hx Diabetes Mellitus Type 1: Yes (hx DKA) - Hematological/Oncological Hx Blood Disorders: No - Integumentary Hx Dermatological Disorder: Yes (hx diabetic foot ulcers) - Musculoskeletal/Rheumatological Hx Musculoskeletal Disorders: Yes Hx Falls: No Hx Osteomyelitis: Yes (LEFT FOOT '14) - Gastrointestinal Hx Gastrointestinal Disorders: Yes (gastritis,gastroparesis) Hx Gastroesophageal Reflux: Yes Other/Comment: duodenal ulcers - Genitourinary/Gynecological Hx Urinary Tract Infection: Yes - Psychiatric Hx Psychophysiologic Disorder: Yes Hx Anxiety: Yes Hx Substance Use: No - Past Surgical History Past Surgical History: No Previous - Surgical History Hx Cardiac Catheterization: No - Anesthesia Hx Anesthesia: No Hx Anesthesia Reactions: No Hx Malignant Hyperthermia: No - Suicidal Assessment Feels Threatened In Home Enviroment: No Family/Social History - Physician Review Nursing Documentation Reviewed: Yes Family/Social History: No Known Family HX Smoking Status: Never Smoked Hx Alcohol Use: No Hx Substance Use: No Hx Substance Use Treatment: No Allergies/Home Meds Allergies/Adverse Reactions: Allergies metoclopramide HCl [From Reglan] Adverse Reaction (Verified 03/19/17 07:35) VOMITING Review of Systems - Physician Review All systems were reviewed & negative as marked: Yes - Review of Systems Constitutional: Normal. absent: Fatigue, Fevers Respiratory: Normal. absent: SOB, Cough, Sputum Cardiovascular: Chest Pain, Palpitations Gastrointestinal: Abdominal Pain, Nausea, Vomiting, Appetite Changes (decreased appetite ). absent: Diarrhea Genitourinary Female: Normal. absent: Dysuria Musculoskeletal: Normal. absent: Back Pain, Neck Pain Neurological: Normal. absent: Headache, Dizziness Psychiatric: Normal Physical Exam Vital Signs Reviewed: Yes Vital Signs Temp Pulse Resp BP Pulse Ox 03/19/17 11:54 129 H 18 142/64 100 03/19/17 09:14 124 H 17 127/53 L 100 03/19/17 07:41 97.8 F 135 H 17 146/72 100 Temperature: Afebrile Blood Pressure: Normal Pulse: Tachycardic Respiratory Rate: Normal Appearance: Positive for: Well-Appearing, Non-Toxic, Comfortable Pain Distress: None Mental Status: Positive for: Alert and Oriented X 3 - Systems Exam Head: Present: Atraumatic, Normocephalic Pupils: Present: PERRL Conjunctiva: Present: Normal Respiratory/Chest: Present: Clear to Auscultation, Good Air Exchange. No: Respiratory Distress, Accessory Muscle Use Cardiovascular: Present: Regular Rate and Rhythm, Normal S1, S2. No: Murmurs Abdomen: Present: Tenderness (epigastric tenderness with guarding ), Normal Bowel Sounds, Guarding. No: Distention, Peritoneal Signs, Rebound Upper Extremity: Present: Normal Inspection. No: Cyanosis, Edema Lower Extremity: Present: Normal Inspection. No: Edema Neurological: Present: GCS=15, CN II-XII Intact, Speech Normal, Motor Func Grossly Intact, Normal Sensory Function Skin: Present: Warm, Dry, Normal Color. No: Rashes Psychiatric: Present: Alert, Oriented x 3, Normal Insight, Normal Concentration Medical Decision Making ED Course and Treatment: 03/19/17 07:31 Impression: A 42 year old female who presents to the emergency department complaining of epigastric pain radiating towards chest and right upper arm for past 4 days. Also reports of palpitations since yesterday. Differential Diagnosis include but are not limited to: Gastroparesis vs. DKA Plan: -- Labs, cardiac enzymes -- Chest X-ray -- Pepcid -- Morphine -- IV Fluids -- Urinalysis -- Reassess and disposition Progress Notes: 03/19/17 08:03 EKG interpreted by me: Sinus Tachycardia @ 129 bpm with incomplete right bundle branch block and t wave inversions in leads I and aVL. New from previous on 03/13/2017. 03/19/17 09:18 IV line placed in left antecubital vein with ultrasound guidance. 03/19/17 09:35 pt with glucose of 751, VBG pH of 7.15. Started on insulin drip. Case discussed with molded goods embossing press operator, , who is aware and accepts patient to ICU for DKA under 's service. Dr. Okaes is covering for Dr. Theodore who will accept patient to the service. 03/19/17 12:56 Patient feels better. HR improving. Insulin drip running. Bicarb was ordered. Venous blood gas repeat with improvement of potassium and glucose. Pending ICU bed. I explained results with mom and patient. - Critical Care Critical Care Minutes: 60 minutes - Lab Interpretations Lab Results: 03/19/17 08:43 03/19/17 08:43 Lab Results 03/19/17 09:25: Urine Color Straw, Urine Appearance Clear, Urine pH 6.0, Ur Specific [place] 1.020, Urine Protein Trace H, Urine Glucose (UA) >=1000, Urine Ketones >=80, Urine Blood Negative, Urine Nitrate Negative, Urine Bilirubin Negative, Urine Urobilinogen 0.2, Ur Leukocyte Esterase Negative, Urine RBC Negative, Urine WBC 0 - 2, Ur Epithelial Cells 0 - 2, Urine Bacteria Neg 03/19/17 09:12: pO2 135 H, VBG pH 7.15 L*, VBG pCO2 27.0 L, VBG HCO3 9.4 L, VBG O2 Sat (Calc) 98.3 H, VBG Base Excess -18.0 L 03/19/17 08:43: pO2 185 H, VBG pH 7.23 L, VBG pCO2 21.0 L, VBG HCO3 8.8 L, VBG Total CO2 9.4 L, VBG O2 Sat (Calc) 98.8 H, VBG Base Excess -16.7 L, VBG Potassium 5.9 H, Sodium 133.0, Chloride 98.0, Glucose > 750 H* D, Lactate 3.1 H , FiO2 21.0, Venous Blood Potassium 5.9 H 03/19/17 08:43: Sodium 134, Chloride 96 L, Potassium 5.7 H* D, Carbon Dioxide 9 L D, Anion Gap 35 H, BUN 23 H, Creatinine 1.4, Est GFR ( Amer) 50, Est GFR (Non-Af Amer) 42, Random Glucose 751 H* D, Calcium 10.1, Total Bilirubin 0.9 , AST 16, ALT 44, Alkaline Phosphatase 101, Lactate Dehydrogenase 540, Total Creatine Kinase 107, Troponin I 0.02 D, Total Protein 7.8, Albumin 4.3, Globulin 3.5, Albumin/Globulin Ratio 1.2, Lipase 21 L 03/19/17 08:43: WBC 11.3 H D, RBC 3.57, Hgb 9.6 L, Hct 30.6 L, MCV 85.7, MCH 26.9, MCHC 31.4, RDW 16.7 H, Plt Count 437, MPV 9.4, Gran % 88.8 H, Lymph % ( Auto) 8.3 L, [place] % (Auto) 2.7, Eos % (Auto) 0.0 L, Baso % (Auto) 0.2, Gran # 10.05 H, Lymph # 0.9 L, [place] # 0.3, Eos # 0.0, Baso # 0.02 I have reviewed the lab results: Yes Interpretation: Abnormal lab values - RAD Interpretation Radiology Orders: 03/19/17 07:25 CHEST PORTABLE [RAD] Stat CXR negative. Catering Coordinator: ED Physician - EKG Interpretation Interpreted by ED Physician: Yes Type: 12 lead EKG - Medication Orders Current Medication Orders: Amlodipine Besylate (Norvasc) 2.5 mg PO DAILY MICHELLE Insulin Human Regular 100 (units/ Sodium Chloride) 100 mls @ 7 mls/hr IV .[id number] PRN; Protocol; 7 UNITS/HR PRN Reason: TITRATE PER MD ORDER Last Admin: 03/19/17 12:20 Dose: 6 units/hr, 6 mls/hr Lorazepam (Ativan) 0.5 mg PO BID MICHELLE PRN Reason: Protocol Metoprolol Tartrate (Lopressor) 25 mg PO BID MICHELLE Ondansetron HCl (Zofran Inj) 4 mg IM Q6H PRN PRN Reason: Nausea/Vomiting Pantoprazole Sodium (Protonix Inj) 40 mg IV 0600 MICHELLE Sodium Bicarbonate (Sodium Bicarbonate (8.4%) 50 Meq Syringe) 50 meq IVP ONCE ONE Stop: 03/19/17 12:54 Sucralfate (Carafate Tab) 1 gm PO BID MICHELLE Discontinued Medications Famotidine (Pepcid) 20 mg IVP STAT STA Stop: 03/19/17 07:26 Last Admin: 03/19/17 08:00 Dose: 20 mg Sodium Chloride (Sodium Chloride 0.9%) 1,000 mls @ 1,000 mls/hr IV .Q1H STA Stop: 03/19/17 08:24 Last Admin: 03/19/17 08:58 Dose: 1,000 mls/hr Sodium Chloride (Sodium Chloride 0.9%) 1,000 mls @ 999 mls/hr IV .Q1H1M STA Stop: 03/19/17 10:10 Last Admin: 03/19/17 09:30 Dose: 999 mls/hr Sodium Chloride (Sodium Chloride 0.9%) 1,000 mls @ 999 mls/hr IV .Q1H1M STA Stop: 03/19/17 12:14 Last Admin: 03/19/17 11:15 Dose: 999 mls/hr Insulin Human Regular (Humulin R) 7 units IVP STAT STA Stop: 03/19/17 09:15 Last Admin: 03/19/17 09:57 Dose: 7 units Morphine Sulfate (Morphine) 4 mg IM STAT STA Stop: 03/19/17 08:15 Last Admin: 03/19/17 08:14 Dose: 4 mg Ondansetron HCl (Zofran Inj) 4 mg IVP STAT STA Stop: 03/19/17 09:11 Last Admin: 03/19/17 09:30 Dose: 4 mg Sodium Bicarbonate (Sodium Bicarbonate (8.4%) 50 Meq Syringe) 50 meq IVP ONCE ONE Stop: 03/19/17 11:15 Last Admin: 03/19/17 12:01 Dose: 50 meq - Scribe Statement The provider has reviewed the documentation as recorded by the Vitaliy Jamil Provider Attestation: All medical record entries made by the Vitaliy were at my direction and personally dictated by me. I have reviewed the chart and agree that the record accurately reflects my personal performance of the history, physical exam, medical decision making, and the department course for this patient. I have also personally directed, reviewed, and agree with the discharge instructions and disposition. Disposition/Present on Arrival - Present on Arrival Any Indicators Present on Arrival: Yes History of DVT/PE: No History of Uncontrolled Diabetes: Yes Urinary Catheter: No History Surgical Site Infection Following: None - Disposition Have Diagnosis and Disposition been Completed?: Yes Diagnosis: DKA (diabetic ketoacidoses), Abdominal pain Disposition: HOSPITALIZED Disposition Time: 09:32 Patient Plan: Admission, ICU Condition: CRITICAL
[2017-03-19 07:36] VITALS: BMI 22.8
[2017-03-19] MEDS ORDERED: Morphine 4 mg/ml ISec IM STA (08:14)
[2017-03-19 08:44] LABS: ADD MANUAL DIFF? NO
[2017-03-19 09:04] LABS: ALB/GLOB RATIO 1.2 (1.1-1.8); BASO # 0.02 K/mm3 (0.0-2.0); BASO % 0.2 % (0.0-3.0); BILIRUBIN,TOTAL 0.9 mg/dL (0.2-1.3); CALCIUM 10.1 mg/dL (8.4-10.5); GRAN # 10.05 (1.4-6.5); GRAN % 88.8 % (50.0-68.0); HEMATOCRIT 30.6 % (36.0-48.0); LYMPH # 0.9 (1.2-3.4); LYMPH % 8.3 % (22.0-35.0); MEAN CELL VOLUME 85.7 fL (80.0-105.0); MEAN CORPUSCULAR HEMOGLOBIN 26.9 pg (25.0-35.0); MEAN CORPUSCULAR HGB CONC 31.4 g/dl (31.0-37.0); MEAN PLATELET VOLUME 9.4 fl (7.0-11.0); MONO # 0.3 (0.1-0.6); MONO % 2.7 % (1.0-6.0); PLATELET COUNT 437 10^3/uL (120.0-450.0); RED CELL DISTRIBUTION WIDTH 16.7 % (11.5-14.5); TOTAL PROTEIN 7.8 g/dL (5.8-8.3); WHITE BLOOD COUNT 11.3 10^3/ul (4.5-11.0)
[2017-03-19 09:09] LABS: VENOUS BLOOD GAS BASE EXCESS -16.7 mmol/L (0.0-2.0); VENOUS BLOOD PH 7.23 (7.32-7.43)
[2017-03-19] MEDS ORDERED: Insulin Regular 1 UNITS/0.01 ML ML IVP STA (09:14)
[2017-03-19 09:16] LABS: TROPONIN I 0.02 ng/mL
[2017-03-19 09:19] LABS: POTASSIUM 5.7 mmol/L (3.6-5.0)
[2017-03-19 09:41] LABS: VENOUS BLOOD PH 7.15 (7.32-7.43)
[2017-03-19 09:43] LABS: URINE BILIRUBIN NEGATIVE (NEGATIVE); URINE BLOOD NEGATIVE (NEGATIVE); URINE GLUCOSE (UA) >=1000 mg/dL (NEGATIVE); URINE KETONE >=80 mg/dL (NEGATIVE); URINE LEUKOCYTE ESTERASE NEGATIVE Leu/uL (NEGATIVE); URINE PROTEIN TRACE mg/dL (<30 mg/dL); URINE UROBILINOGEN 0.2 E.U./dL (<1 E.U./dL)
[2017-03-19 09:50] LABS: URINE APPEARANCE CLEAR (CLEAR); URINE COLOR STRAW (YELLOW)
[2017-03-19 09:52] LABS: URINE BACTERIA NEG (NEG); URINE EPITHELIAL CELLS 0 - 2 /hpf (0-5); URINE RBC NEGATIVE /hpf (0-2); URINE WBC 0 - 2 /hpf (0-6)
--- NOTE | 2017-03-19 10:48 | RAD ---
HISTORY: chest pain COMPARISON: Comparison chest 03/10/2017 FINDINGS: LUNGS: No active pulmonary disease. PLEURA: No significant pleural effusion identified, no pneumothorax apparent. CARDIOVASCULAR: Normal. OSSEOUS STRUCTURES: No significant abnormalities. VISUALIZED UPPER ABDOMEN: Normal. OTHER FINDINGS: None. IMPRESSION: No active disease.
[2017-03-19] MEDS: Insulin Regular 100 UNITS in Sodium Chloride 0.9% 99 ML IV PRN ×2 (11:11→12:20)
[2017-03-19] MEDS ORDERED: Sodium Bicarbonate (8.4%) 50 Meq Syringe IVP ONE ×2 (11:14→12:53)
[2017-03-19 12:49] LABS: VENOUS BLOOD GAS BASE EXCESS -21.6 mmol/L (0.0-2.0)
[2017-03-19 12:52] LABS: VENOUS BLOOD PH 7.03 (7.32-7.43)
[2017-03-19] MEDS: Sodium Chloride 0.9% 1,000 ML IV STA ×2 (13:24→13:34)
[2017-03-19 14:54] LABS: BLOOD UREA NITROGEN 20 mg/dL (7-21); CARBON DIOXIDE 12 mmol/L (21-33); CHLORIDE 112 mmol/L (98-107); GFR AFRICAN-AMERICAN > 60; POTASSIUM 4.8 mmol/L (3.6-5.0); SODIUM 145 mmol/L (132-148)
[2017-03-19 14:58] LABS: GLUCOSE,RANDOM 332 mg/dL (70-110)
--- NOTE | 2017-03-19 15:14 | HP ---
HISTORY OF PRESENT ILLNESS: The patient is a 42-year-old female seen and examined in ER. States laverne t she was not taking her insulin that she normally takes on a daily basis, comes in now with fever, c ough, cold, yellow sputum production with some shortness of breath. So came into the hospital for ev aluation. In the ER, was seen to be in DKA and is going to the ICU at this point. PAST MEDICAL HISTORY: Includes hypertension, CAD, hyperkalemia as well as diabetes mellitus. MEDICAL ALLERGIES: No known allergies. MEDICATIONS: See MAR. SOCIAL HISTORY: No smoking, no drinking, no drug use. FAMILY MEDICAL HISTORY: Positive for diabetes, positive for hypertension. REVIEW OF SYSTEMS: HEENT: Unremarkable. CARDIOVASCULAR: Unremarkable. LUNGS: Unremarkable. ABDOMINAL: Positive for abdominal pain. Positive for diarrhea. Positive for nausea and vomiting. EXTREMITIES: Peripheral pulses are negative. PHYSICAL EXAMINATION: VITAL SIGNS: Blood pressure is 127/58, pulse rate of 124, temperature of 97.8, O2 saturation is 100. LABORATORY DATA: WBCs of 11.3, hemoglobin of 10.6, hematocrit of 30.6, platelets of 437. Chemistry, pH of 7.1, sodium 134, potassium of 5.6, anion gap of 35 at this point with a glucose of 751. LFTs within normal limits. HEENT: Normocephalic, atraumatic. [place] conjunctivae, nonicteric sclerae. No JVD, no thyromegaly. CARDIOVASCULAR: Regular rate and rhythm. S1, S2 appreciated. No S3 noted. LUNGS: Bilateral air entry is positive. No wheezes or rhonchi. ABDOMEN: Nondistended, nontender. Positive bowel sounds. EXTREMITIES: Peripheral pulses +2, no pitting edema. ASSESSMENT: 1. Diabetic ketoacidosis. 2. Hypertension. 3. Coronary artery disease in the past. 4. Hyperkalemia. PLAN: 1. At this time, will give her IV fluids at this point. 2. We will start IV insulin. 3. IV Zofran. 4. We will get an ICU consult and we will keep her n.p.o. at this point and will follow her and [facility] in the morning as well as MICU care. Dillon Oakes MD cc: [id number] TT: 03/19/2017 15:13:32 an
[2017-03-19] MEDS ORDERED: Sodium Chloride 0.9% 1,000 ML IV SCH (16:15)
[2017-03-19] MEDS: Morphine 2 mg/ml ISec IVP PRN ×2 (16:24→22:05)
[2017-03-19] MEDS ORDERED: cefTRIAXone 1 gm 1 GM/100 ML BAG IVPB SCH (16:30)
[2017-03-19 17:56] LABS: ADD MANUAL DIFF? NO
[2017-03-19 18:01] LABS: ARTERIAL BLOOD GAS HCO3 16.2 mmol/L (21-28); ARTERIAL BLOOD GAS PH 7.37 (7.35-7.45)
[2017-03-19] MEDS ORDERED: Dextrose 5%/0.9% NS 1,000 ML IV SCH (18:15)
[2017-03-19 18:19] LABS: BASO # 0.02 K/mm3 (0.0-2.0); BASO % 0.1 % (0.0-3.0); EOS % 0.1 % (1.5-5.0); GRAN # 11.38 (1.4-6.5); GRAN % 66.4 % (50.0-68.0); HEMATOCRIT 28.6 % (36.0-48.0); LYMPH # 3.3 (1.2-3.4); LYMPH % 19.2 % (22.0-35.0); MEAN CELL VOLUME 83.1 fL (80.0-105.0); MEAN CORPUSCULAR HGB CONC 32.5 g/dl (31.0-37.0); MONO # 2.4 (0.1-0.6); MONO % 14.2 % (1.0-6.0); PLATELET COUNT 412 10^3/uL (120.0-450.0); RED CELL DISTRIBUTION WIDTH 16.6 % (11.5-14.5); WHITE BLOOD COUNT 17.1 10^3/ul (4.5-11.0)
[2017-03-19 18:22] LABS: ALB/GLOB RATIO 1.1 (1.1-1.8); ALKALINE PHOSPHATASE 82 U/L (38-133); ALT/SGPT 42 U/L (7-56); AST/SGOT 20 U/L (15-39); BILIRUBIN,TOTAL 0.6 mg/dL (0.2-1.3); BLOOD UREA NITROGEN 18 mg/dL (7-21); CALCIUM 9.1 mg/dL (8.4-10.5); CARBON DIOXIDE 19 mmol/L (21-33); CHLORIDE 112 mmol/L (98-107); GFR AFRICAN-AMERICAN > 60; GLUCOSE,RANDOM 154 mg/dL (70-110); MAGNESIUM 2.2 mg/dL (1.7-2.2); PHOSPHOROUS 2.7 mg/dL (2.5-4.5); SODIUM 147 mmol/L (132-148); TOTAL PROTEIN 7.6 g/dL (5.8-8.3)
[2017-03-19] MEDS: Dextrose 5%/0.45% NS 1,000 ML IV SCH (19:47)
--- NOTE | 2017-03-19 20:24 | CON ---
DATE: 03/19/2017 REQUESTING PHYSICIAN: Dr. Theodore. CHIEF COMPLAINT: The patient presented to the Emergency Room with epigastric pain associated with na useousness and vomiting, nonbloody, nonbilious for approximately 4 days. She states that the abdomin al pain radiates towards her chest and right upper arm. She has had decreased appetite and has been drinking fluids and Pedialyte. The patient has had similar episodes of gastroparesis in the past. S he also complains of palpitations since last night. No fever, chills. No headache, no dizziness, or difficulty breathing, no diarrhea or urinary symptoms. The patient has a past history of diabetes. At this time, she presents with DKA with a blood sugar as high as 751 and an anion gap with metaboli c acidosis. She is dehydrated. She has anemia, and as stated above, presents with the nauseousness and vomiting. She has a history of diabetic gastroparesis. She has hypertension, gastritis, gastric ulcer and duodenal ulcers, as well as esophageal ulcers. Note that the patient does have GERD as we ll. PAST MEDICAL HISTORY: As above. ALLERGIES: SHE HAS ALLERGIES TO REGLAN. MEDICATIONS: Can be evaluated as per the nurse's intake form. SOCIAL HISTORY: No history of smoking or ETOH abuse. No drug abuse. FAMILY HISTORY: Noncontributory. REVIEW OF SYSTEMS: CONSTITUTIONAL: All negative. HEENT: All negative. CARDIOVASCULAR: The patient has had some palpitations. RESPIRATORY: All negative. GASTROINTESTINAL: She has the abdominal pain and nauseousness and the vomiting, the decreased appeti te, but no diarrhea. GENITOURINARY: All normal. MUSCULOSKELETAL: All normal. NEUROPSYCHIATRIC: All normal. HEMATOLOGIC: All normal. IMMUNOLOGIC: All normal. INTEGRITY: All normal. ENDOCRINE: All normal. PHYSICAL EXAMINATION: VITAL SIGNS: Note that her temperature is 97.8, her pulse is 129, her respirations are 18, and BP is 127/53. SKIN: Warm and dry. HEAD: Atraumatic, normocephalic. EYES: Reactive to light. EARS, NOSE AND THROAT: Seem to be within normal limits. NECK: Supple, no JVD, no thyroid enlargement, no lymph nodes. HEART: Has a regular rate and rhythm. Normal S1, S2, but tachycardic. LUNGS: Reveal good breath sounds bilaterally. ABDOMEN: Soft, decreased bowel sounds. There is some mild discomfort to deep palpation, but not an acute abdomen. GENITALIA AND RECTAL: Deferred. MUSCULOSKELETAL: No joint deformities. EXTREMITIES: Reveal no significant edema. NEUROLOGIC: She seemed to be grossly intact. LABORATORY DATA: As far as her laboratories, her white count is 11.3, hemoglobin is 9.6, hematocrit is 30.6 with platelets of 437. Sodium is 134, potassium 5.7, chloride 96, CO2 of 9 with a BUN of 23, creatinine of 1.4 and a glucose of 751. As far as chest x-ray, the patient has no active disease. IMPRESSION: This patient has diabetic ketoacidosis with metabolic acidosis. She has epigastric pain , as well as nauseousness and vomiting. The patient has a history of gastritis, gastric and duodenal ulcers, as well as esophageal ulcers. She has GERD as well as anemia and diabetic gastroparesis. S he is noted to have a metabolic acidosis. She is dehydrated with anemia, tachycardia and epigastric pain. Note, there may be a component of sepsis. PLAN: The patient will have a septic workup, will be started on Rocephin. ID, GI and endocrine cons ults have been called. The patient will continue with IV fluids of normal saline. We will check the blood sugar hourly and adjust the IV insulin as needed. The patient will get Protonix IV, as well a s Ativan p.r.n., and I have started morphine IV push for severe abdominal pains. The patient is gett ing Zofran for her nauseousness. We will follow her electrolytes closely and correct as needed, and we will continue to treat aggressively along with the other consultants and the primary care doctor. Jose Plunkett MD cc: [id number] TT: 03/19/2017 20:24:19 Confirmation # [id number] Dictation # [id number] angie
[2017-03-19] MEDS ORDERED: Morphine 2 mg/ml ISec IVP STA (21:11)
[2017-03-19] MEDS ORDERED: Insulin Reg-HIGH-Coverage SC SCH (22:00)
[2017-03-19] MEDS: Meropenem 1g/NS 100mL IVPB 1 GM/100 ML PIGGYBACK IVPB SCH (22:07)
--- NOTE | 2017-03-19 22:07 | CARD ---
APPROVED REPORT EKG Measurement Heart [id number] OR 136P [id number] <Conclusion> Sinus tachycardia RSR' or QR pattern in V1 suggests right ventricular conduction delay Lateral infarct, age undetermined Abnormal ECG
--- NOTE | 2017-03-20 01:31 | CON ---
DATE: 03/19/2017 LOCATION: ICU/CCU 129, room 4. HISTORY OF PRESENT ILLNESS: This is a 42-year-old female, very well known to me from previous hospit al consultation, now admitted with intractable vomiting related to severe diabetic gastroparesis and is now being referred for diabetic evaluation and management. She was apparently doing well until ab out 4 days or so prior to admission when she developed nausea, dyspepsia, and supervening intractable vomiting episodes and diffuse abdominal pain prompting this hospital readmission thereof. PAST MEDICAL HISTORY: As mentioned above. History of type 1 insulin-dependent diabetes, currently o n a combination of Levemir given as 20 units at bedtime with regular insulin given as 10 units t.i.d. with meals as noted. She admits she has had extremes of glycemic fluctuations from hypo to hypergly cemic accelerations over the past few months prior to admission related to very variable oral intake because of severe underlying diabetic gastroparesis. History of diabetic retinopathy and polyneuropa thy. Has a prior history of lower extremity cellulitis and osteomyelitis as noted, history of hypert ension and dyslipidemia. FAMILY HISTORY: Positive for hypertension and diabetes. SOCIAL HISTORY: The patient has supportive family. No known substance use. REVIEW OF SYSTEMS: As mentioned above. Admits to generalized body weakness with easy fatigability a nd tiredness and suboptimal energy level. Also admits to episodic dizziness and lightheadedness, wor se on the day of admission. No chest pains or palpitations or PNDs. Her oral intake is quite variab le with nausea, dyspepsia, and supervening diffuse abdominal pain and intractable vomiting episodes. No recent alterations of bowel or urinary patterns; although, admits to recent polyuria and nocturia on the day of admission. PHYSICAL EXAMINATION: GENERAL: An average built female in no apparent distress. VITAL SIGNS: Blood pressure of 140/80, pulse of 88 beats per minute and regular, temperature 98, res pirations 20. Height is 5 feet 9 inches and weight is 155 pounds. HEENT: Head normocephalic. Eyes anicteric with pink conjunctivae. Fundoscopy not possible at this time. Ears, nose and throat otherwise normal. NECK: Supple. Thyroid gland is normal size. No carotid bruits. No cervical adenopathy. CARDIOPULMONARY: Some adynamic precordium. S1, S2 is rapid and regular. LUNGS: Clear to auscultation. ABDOMEN: Flat, soft with positive bowel sounds. EXTREMITIES: No peripheral edema. Pulses are +2 bilaterally. LABORATORY DATA: WBC is 17.1, hemoglobin of 9.3, hematocrit of 28.6, MCV 83, platelets 412, chemistr ies showed a BUN of 18, sodium 147, potassium 4.0, chloride 112, CO2 19, glucose 154 and creatinine 0 .9. ASSESSMENT: This is a 42-year-old female with uncontrolled and decompensated type 1 insulin-dependen t diabetes with severe diabetic gastroparesis, a form of diabetic autonomic neuropathy, presenting he re with intractable vomiting and diffuse abdominal pain and is now being referred for diabetic evalua tion and management. She also has diabetic microvascular complications of retinopathy and polyneurop athy as noted with underlying diabetic vasculopathy. PLAN OF MANAGEMENT: We will modify her current low-dose correction scale using regular insulin to ob viate hypoglycemia and detailed orders have been given. We will start her on a low dose basal and ayla antony insulin drug combination as ordered. We will start her with regular insulin given as 6 units sub Q t.i.d. before meals to start tomorrow morning. We will also add basal insulin with Levemir given a s 14 units subQ at bedtime daily and will titrate incrementally to optimize metabolic control. Hemog lobin A1c will be done to confirm her prior glycemic control and baseline thyroid function studies an d cortisol level will be obtained. Will obtain serial chemistries and, in the meantime, continue the vigorous IV hydration as noted. She actually presented with diabetic ketoacidosis and would need vi gorous IV hydration to replenish the lost fluids and electrolytes thereof. Will follow. Tamara Campo MD cc: [id number] TT: 03/20/2017 01:30:42 Confirmation # [id number] Dictation # [id number] angie
[2017-03-20] MEDS: Morphine 2 mg/ml ISec IVP PRN ×4 (02:55→21:42)
[2017-03-20] MEDS: Insulin Lispro (humaLOG) LOW Coverage SC SCH ×2 (03:11→18:20)
[2017-03-20] MEDS: Dextrose 5%/0.45% NS 1,000 ML IV SCH ×4 (03:13→21:44)
[2017-03-20] MEDS ORDERED: HYDROmorphone 0.5 mg/0.5 ml ISec IM STA (06:20)
[2017-03-20 07:05] LABS: ARTERIAL BLOOD GAS PH 7.17 (7.35-7.45)
[2017-03-20] MEDS ORDERED: Sodium Bicarbonate (8.4%) 50 Meq Syringe IVP STA ×2 (07:17→10:01)
[2017-03-20] MEDS ORDERED: Insulin Reg-LOW-Coverage SC SCH (07:30)
[2017-03-20] MEDS: Insulin Regular 1 UNITS/0.01 ML ML SC SCH ×2 (07:50→18:21)
--- NOTE | 2017-03-20 08:47 | CON ---
DATE: 03/19/2017 This patient was seen and evaluated earlier, discussed with the customer liaison, . This 42-year-old patient with a past medical history of insulin- dependent diabetes mellitus has severe gastroparesis, multiple admissions in the past, now admitted with cough, fever, yellowish sputum and shortness of breath. The patient was also complaining of abdominal pain, GI consult was requested, evaluate. The patient is being closely followed at [facility] GI Motility department, Dr Whitfield. The patient did have a history of antral Botox injection therapy in the past. She was recently seen in [facility] for her gastroparesis. The patient's last endoscopy showed LA grade C esophageal ulcerations. The patient has been on PPI. THE PATIENT HAS ALLERGY TO REGLAN. PAST MEDICAL HISTORY: Significant for hypertension, coronary artery disease, dyslipidemia and diabetes mellitus. ALLERGIES: No known drug allergies. SOCIAL HISTORY: He denies smoking. No alcohol. REVIEW OF SYSTEMS: Positive as above. , vomiting, cough,abdominal pain. PHYSICAL EXAMINATION: GENERAL: On examination the patient is lying on the bed, not in acute distress and abnormal movement noticed. Pulse 129, blood pressure 155/80, respirations 17, O2 saturation is 98%. HEENT: Atraumatic, anicteric. NECK: Supple. HEART: S1, S2 heard. LUNGS: Bilateral air entry present. ABDOMEN: Soft, mild tenderness present on deep palpation in the epigastric area. EXTREMITIES: No edema, no cyanosis. NEUROLOGIC: Alert, oriented. Moves all the extremities. abnormal movements. LABORATORY DATA: WBC count is 17.1, hemoglobin 9.3, hematocrit 28.6, platelets 412. Initially bicarbonate was 12 and now it is 19. The patient did have blood gas done, acidosis is improving . Initially the patient came with blood glucose level was over 750. IMPRESSION: This 42-year-old patient insulin dependent, admitted with DKA, history of rule out sepsis, abdominal pain, history of vomiting via coughing out sputum. Sepsis, rule out pneumonia, rule out bronchitis, rule out intra- abdominal source. RECOMMEND: 1. Continue the Protonix IV 40 mg q. 12 hourly. 2. IV hydration and treatment of the diabetic ketoacidosis. 3. The patient's previous workup was reviewed. The patient did have multiple CAT scans and also sonogram, no stones. At the present time, clinically the abdomen appears to be benign. The abdominal pain could be secondary to the DKA , but in view of this leukocytosis, it is reasonable to start empiric antibiotic coverage. Rule out bronchitis and close followup. THE PATIENT IS ALLERGIC TO REGLAN. We will not consider erythromycin at the present time. We will continue to closely follow up her care and suggest further management based on the clinical course. Bev Gomez MD cc: [id number] TT: 03/20/2017 03:19:08 Confirmation # [id number] Dictation # [id number] jn MTDRuth Ann
--- NOTE | 2017-03-20 09:16 | PN ---
DATE: 03/20/2017 I saw the patient in intensive care unit. She is very sick. She is very lethargic, not talking, but nodding yes and no for answers, lethargic. PHYSICAL EXAMINATION: VITAL SIGNS: Temp 97.3, 126 pulse, 95% O2 sat on room air. HEAD: Atraumatic, normocephalic. She is dry. HEART: Tachycardic. LUNGS: Decreased breath sounds, clear. ABDOMEN: Soft. EXTREMITIES: No edema. MEDICATIONS: She is currently on Ativan, Carafate, dextrose, insulin coverage, and R coverage, Levemir, Lopressor, Merrem IV. LABORATORY DATA: She has a 17.1 white count, 9.3 hemoglobin, 28.6 hematocrit with 412 platelets. Sodium 147. Potassium is 4. BUN is 18, creatinine 0.89. GFR is 60. Sugar is 154. Calcium is 9.1, phosphorus 2.7, magnesium 2.2. Total bili is 0.6. AST is 20. ALT is 42. Alk phos is 82. Total protein is 7.6. She did not know why her blood sugars went off and why she is feeling this way. She tells me she is taking her medications. She has a consult with endocrinology, pulmonology. There is also consult with Dr. Jim Hanks for a PICC line for IV access - just fell out. Chest x-ray was clear. ASSESSMENT: She has diabetic ketoacidosis, hypertension, coronary artery disease, high potassium. She also has gastroparesis secondary to diabetic ketoacidosis. PLAN: We will continue with aggressive treatment and care in the intensive care unit, watch her blood sugars, give coverage, check her labs tomorrow, IV fluids. as per endocrinology and pulmonary. David Theodore DO cc: [id number] TT: 03/20/2017 09:15:32 Confirmation # [id number] Dictation # [id number] jn MTDD
[2017-03-20 09:39] LABS: ARTERIAL BLOOD GAS HCO3 5.7 mmol/L (21-28); ARTERIAL BLOOD GAS PH 7.13 (7.35-7.45)
[2017-03-20] MEDS ORDERED: Sodium Bicarbonate (8.4%) 50 Meq Syringe ONE ×2 (10:01→10:02)
[2017-03-20] MEDS ORDERED: Sodium Chloride 0.9% 1,000 ML IV STA (10:01)
[2017-03-20] MEDS ORDERED: Sodium Chloride 0.9% 2,000 ML IV STA (10:03)
[2017-03-20] MEDS ORDERED: Insulin Regular 100 UNITS in Sodium Chloride 0.9% 99 ML IV PRN (10:18)
[2017-03-20] MEDS: Meropenem 1g/NS 100mL IVPB 1 GM/100 ML PIGGYBACK IVPB SCH ×2 (11:07→21:40)
[2017-03-20 11:25] LABS: ADD MANUAL DIFF? NO
[2017-03-20] MEDS ORDERED: Sodium Chloride 0.9% 1,000 ML IV SCH (11:30)
[2017-03-20 11:33] LABS: BASO # 0.01 K/mm3 (0.0-2.0); BASO % 0.1 % (0.0-3.0); GRAN # 12.55 (1.4-6.5); GRAN % 77.9 % (50.0-68.0); HEMATOCRIT 27.3 % (36.0-48.0); LYMPH # 2.4 (1.2-3.4); LYMPH % 15.1 % (22.0-35.0); MEAN CORPUSCULAR HEMOGLOBIN 26.8 pg (25.0-35.0); MEAN CORPUSCULAR HGB CONC 31.5 g/dl (31.0-37.0); MEAN PLATELET VOLUME 8.2 fl (7.0-11.0); MONO # 1.1 (0.1-0.6); MONO % 6.9 % (1.0-6.0); PLATELET COUNT 367 10^3/uL (120.0-450.0); RED CELL DISTRIBUTION WIDTH 17.2 % (11.5-14.5); WHITE BLOOD COUNT 16.1 10^3/ul (4.5-11.0)
[2017-03-20 11:34] LABS: VENOUS BLOOD GAS BASE EXCESS -13.3 mmol/L (0.0-2.0)
[2017-03-20 11:46] LABS: ALKALINE PHOSPHATASE 62 U/L (38-133); ALT/SGPT 35 U/L (7-56); AST/SGOT 16 U/L (15-39); BILIRUBIN,TOTAL 0.5 mg/dL (0.2-1.3); BLOOD UREA NITROGEN 17 mg/dL (7-21); CALCIUM 8.5 mg/dL (8.4-10.5); CARBON DIOXIDE 15 mmol/L (21-33); CHLORIDE 120 mmol/L (98-107); CHOLESTEROL 198 mg/dL (130-200); GFR AFRICAN-AMERICAN > 60; GLUCOSE,RANDOM 294 mg/dL (70-110); MAGNESIUM 2.2 mg/dL (1.7-2.2); PHOSPHOROUS 2.7 mg/dL (2.5-4.5); SODIUM 153 mmol/L (132-148); TOTAL PROTEIN 6.5 g/dL (5.8-8.3); VENOUS BLOOD PH 7.19 (7.32-7.43)
--- NOTE | 2017-03-20 12:18 | CP.CCUPN ---
<Gamaliel Summers - Last Filed: 03/20/17 12:15> CCU Subjective - Physician Review Subjective (Free Text): Pt seen and examined at bedside. Pt with difficult IV access, central line was placed. Pt was also placed on BIPAP due to increased work of breathing. Pt states she feels weak and lethargic. Denies CP, vomiting, nausea, diarrhea, fevers, chills. CCU Objective - Vital Signs / Intake & Output Vital Signs (Last 4 hours): Vital Signs Pulse 03/20/17 10:33 112 H Intake and Output (Last 8hrs): Intake & Output 03/19/17 03/20/17 03/20/17 22:59 06:59 14:59 Intake Total 510 1250 Output Total 0 900 Balance 510 350 Intake: IV 10 1250 Right Hand 1250 Other 500 Output: Urine 0 900 Urine, Voided 0 900 Oral Regurgitation 0 Other: Voiding Method Bedpan # Bowel Movements 0 - Physical Exam Head: Positive for: Atraumatic, Normocephalic Pupils: Positive for: PERRL Conjunctiva: Positive for: Normal Mouth: Positive for: Dry Respiratory/Chest: Positive for: Clear to Auscultation, Good Air Exchange. Negative for: Respiratory Distress, Accessory Muscle Use Cardiovascular: Positive for: Regular Rate and Rhythm, Normal S1, S2. Negative for: Murmurs Abdomen: Positive for: Tenderness (epigastric ), Normal Bowel Sounds. Negative for: Distention, Peritoneal Signs, Rebound Upper Extremity: Positive for: Normal Inspection. Negative for: Cyanosis, Edema Lower Extremity: Positive for: Normal Inspection. Negative for: Edema Neurological: Positive for: GCS=15, CN II-XII Intact, Speech Normal, Motor Func Grossly Intact, Normal Sensory Function Skin: Positive for: Warm, Dry, Normal Color. Negative for: Rashes Psychiatric: Positive for: Alert, Oriented x 3, Normal Insight, Normal Concentration - Medications Active Medications: Active Medications Generic Name Dose Route Start Last Admin Trade Name Freq PRN Reason Stop Dose Admin Amlodipine Besylate 2.5 mg 03/20/17 10:00 03/20/17 10:33 Norvasc PO Not Given DAILY MICHELLE Meropenem 1g/NS 100mL IVPB 1 gm in 100 mls @ 100 mls/hr 03/19/17 22:00 11:07 Meropenem 1g/Ns 100ml Ivpb IVPB 03/27/17 22:01 100 mls/hr Q12 MICHELLE Administration Protocol Insulin Human Regular 100 100 mls @ 4 mls/hr 03/20/17 10:18 03/20/17 11:16 units/ Sodium Chloride IV 4 units/hr .Q24H PRN 4 mls/hr TITRATE PER MD ORDER Administration Protocol 4 UNITS/HR Sodium Chloride 1,000 mls @ 150 mls/hr 03/20/17 11:30 Sodium Chloride 0.9% IV .[id number] [facility] Insulin Detemir 14 unit 03/20/17 22:00 Levemir SC HS MICHELLE Insulin Human Lispro 0 units 03/20/17 11:30 Humalog High SC ACHS [facility] Protocol Insulin Human Regular 6 units 03/20/17 07:30 03/20/17 07:50 Humulin R SC 6 units AC [facility] Administration Metoprolol Tartrate 25 mg 03/19/17 18:00 03/20/17 10:33 Lopressor PO Not Given BID [facility] Morphine Sulfate 2 mg 03/19/17 16:17 03/20/17 02:55 Morphine IVP 2 mg Q4H PRN Administration Pain, severe (8-10) Ondansetron HCl 4 mg 03/19/17 10:38 Zofran Inj IM Q6H PRN Nausea/Vomiting Pantoprazole Sodium 40 mg 03/20/17 06:00 03/20/17 06:52 Protonix Inj IV Not Given 0600 [facility] Sucralfate 1 gm 03/19/17 18:00 03/20/17 10:33 Carafate Tab PO Not Given BID [facility] - Patient Studies Lab Studies: Lab Studies 03/20/17 03/20/17 03/20/17 Range/Units 11:11 11:11 11:11 WBC 16.1 H (4.5-11.0) 10^3/ul RBC 3.21 L (3.5-6.1) 10^6/uL Hgb 8.6 L (12.0-16.0) gm/dL Hct 27.3 L (36.0-48.0) % MCV 85.0 (80.0-105.0) fL MCH 26.8 (25.0-35.0) pg MCHC 31.5 (31.0-37.0) g/dl RDW 17.2 H (11.5-14.5) % Plt Count 367 (120.0-450.0) 10^3/uL MPV 8.2 (7.0-11.0) fl Gran % 77.9 H (50.0-68.0) % Lymph % (Auto) 15.1 L (22.0-35.0) % Bremer % (Auto) 6.9 H (1.0-6.0) % Eos % (Auto) 0.0 L (1.5-5.0) % Baso % (Auto) 0.1 (0.0-3.0) % Gran # 12.55 H (1.4-6.5) Lymph # 2.4 (1.2-3.4) Bremer # 1.1 H (0.1-0.6) Eos # 0.0 (0.0-0.7) Baso # 0.01 (0.0-2.0) K/mm3 pCO2 (35-45) mm/Hg pO2 49 (30-55) mm/Hg HCO3 (21-28) mmol/L ABG pH (7.35-7.45) ABG Total CO2 (22-28) mmol.L ABG O2 Saturation (95-98) % ABG Base Excess (-2.0-3.0) mmol/L ABG Potassium (3.6-5.2) mmol/L VBG pH 7.19 L* (7.32-7.43) VBG pCO2 37.0 L (40-60) VBG HCO3 14.1 L (21-28) mmol/l VBG Total CO2 15.2 L (22-28) mmol.L VBG O2 Sat (Calc) 87.1 H (40-65) % VBG Base Excess -13.3 L (0.0-2.0) mmol/L VBG Potassium 4.0 (3.6-5.2) mmol/L Glucose 313 H (65-105) mg/dl Lactate 1.6 (0.7-2.1) mmol/L FiO2 21.0 % Sodium 153.0 H 153 H (132-148) mmol/L Potassium 4.0 (3.6-5.0) mmol/L Chloride 127.0 H 120 H (98-107) mmol/L Carbon Dioxide 15 L (21-33) mmol/L Anion Gap 22 H (10-20) BUN 17 (7-21) mg/dL Creatinine 0.9 (0.5-1.4) mg/dL Est GFR ( Amer) > 60 Est GFR (Non-Af Amer) > 60 POC Glucose (mg/dL) (65-110) mg/dL Random Glucose 294 H (70-110) mg/dL Calcium 8.5 (8.4-10.5) mg/dL Phosphorus 2.7 (2.5-4.5) mg/dL Magnesium 2.2 (1.7-2.2) mg/dL Total Bilirubin 0.5 (0.2-1.3) mg/dL AST 16 (15-39) U/L ALT 35 (7-56) U/L Alkaline Phosphatase 62 (38-133) U/L Total Protein 6.5 (5.8-8.3) g/dL Albumin 3.3 (3.0-4.8) g/dL Globulin 3.2 gm/dL Albumin/Globulin Ratio 1.0 L (1.1-1.8) Triglycerides 125 (35-160) mg/dL Cholesterol 198 (130-200) mg/dL LDL Cholesterol Direct 70 (0-129) mg/dL HDL Cholesterol 88 H (29-60) mg/dL Procalcitonin (0.19-0.49) NG/ML Arterial Blood Potassium (3.6-5.2) mmol/L Venous Blood Potassium 4.0 (3.6-5.2) mmol/L 03/20/17 03/20/17 03/20/17 Range/Units 09:15 07:16 06:00 WBC (4.5-11.0) 10^3/ul RBC (3.5-6.1) 10^6/uL Hgb (12.0-16.0) gm/dL Hct (36.0-48.0) % MCV (80.0-105.0) fL MCH (25.0-35.0) pg MCHC (31.0-37.0) g/dl RDW (11.5-14.5) % Plt Count (120.0-450.0) 10^3/uL MPV (7.0-11.0) fl Gran % (50.0-68.0) % Lymph % (Auto) (22.0-35.0) % Bremer % (Auto) (1.0-6.0) % Eos % (Auto) (1.5-5.0) % Baso % (Auto) (0.0-3.0) % Gran # (1.4-6.5) Lymph # (1.2-3.4) Bremer # (0.1-0.6) Eos # (0.0-0.7) Baso # (0.0-2.0) K/mm3 pCO2 17 L* 11 L* (35-45) mm/Hg pO2 126.0 H 171.0 H (30-55) mm/Hg HCO3 5.7 L* 4.0 L* (21-28) mmol/L ABG pH 7.13 L* 7.17 L* (7.35-7.45) ABG Total CO2 6.2 L 4.3 L (22-28) mmol.L ABG O2 Saturation 98.6 H 98.4 H (95-98) % ABG Base Excess -21.4 L -21.9 L (-2.0-3.0) mmol/L ABG Potassium 4.6 2.2 L* (3.6-5.2) mmol/L VBG pH (7.32-7.43) VBG pCO2 (40-60) VBG HCO3 (21-28) mmol/l VBG Total CO2 (22-28) mmol.L VBG O2 Sat (Calc) (40-65) % VBG Base Excess (0.0-2.0) mmol/L VBG Potassium (3.6-5.2) mmol/L Glucose 539 H* D 266 H (65-105) mg/dl Lactate 1.3 0.8 (0.7-2.1) mmol/L FiO2 21.0 21.0 % Sodium 147.0 156.0 H (132-148) mmol/L Potassium (3.6-5.0) mmol/L Chloride 120.0 H 138.0 H (98-107) mmol/L Carbon Dioxide (21-33) mmol/L Anion Gap (10-20) BUN (7-21) mg/dL Creatinine (0.5-1.4) mg/dL Est GFR ( Amer) Est GFR (Non-Af Amer) POC Glucose (mg/dL) 470 H* (65-110) mg/dL Random Glucose (70-110) mg/dL Calcium (8.4-10.5) mg/dL Phosphorus (2.5-4.5) mg/dL Magnesium (1.7-2.2) mg/dL Total Bilirubin (0.2-1.3) mg/dL AST (15-39) U/L ALT (7-56) U/L Alkaline Phosphatase (38-133) U/L Total Protein (5.8-8.3) g/dL Albumin (3.0-4.8) g/dL Globulin gm/dL Albumin/Globulin Ratio (1.1-1.8) Triglycerides (35-160) mg/dL Cholesterol (130-200) mg/dL LDL Cholesterol Direct (0-129) mg/dL HDL Cholesterol (29-60) mg/dL Procalcitonin (0.19-0.49) NG/ML Arterial Blood Potassium 4.6 2.2 L* (3.6-5.2) mmol/L Venous Blood Potassium (3.6-5.2) mmol/L 03/19/17 03/19/17 03/19/17 Range/Units 22:13 19:05 18:17 WBC (4.5-11.0) 10^3/ul RBC (3.5-6.1) 10^6/uL Hgb (12.0-16.0) gm/dL Hct (36.0-48.0) % MCV (80.0-105.0) fL MCH (25.0-35.0) pg MCHC (31.0-37.0) g/dl RDW (11.5-14.5) % Plt Count (120.0-450.0) 10^3/uL MPV (7.0-11.0) fl Gran % (50.0-68.0) % Lymph % (Auto) (22.0-35.0) % Bremer % (Auto) (1.0-6.0) % Eos % (Auto) (1.5-5.0) % Baso % (Auto) (0.0-3.0) % Gran # (1.4-6.5) Lymph # (1.2-3.4) Bremer # (0.1-0.6) Eos # (0.0-0.7) Baso # (0.0-2.0) K/mm3 pCO2 (35-45) mm/Hg pO2 (30-55) mm/Hg HCO3 (21-28) mmol/L ABG pH (7.35-7.45) ABG Total CO2 (22-28) mmol.L ABG O2 Saturation (95-98) % ABG Base Excess (-2.0-3.0) mmol/L ABG Potassium (3.6-5.2) mmol/L VBG pH (7.32-7.43) VBG pCO2 (40-60) VBG HCO3 (21-28) mmol/l VBG Total CO2 (22-28) mmol.L VBG O2 Sat (Calc) (40-65) % VBG Base Excess (0.0-2.0) mmol/L VBG Potassium (3.6-5.2) mmol/L Glucose (65-105) mg/dl Lactate (0.7-2.1) mmol/L FiO2 % Sodium (132-148) mmol/L Potassium (3.6-5.0) mmol/L Chloride (98-107) mmol/L Carbon Dioxide (21-33) mmol/L Anion Gap (10-20) BUN (7-21) mg/dL Creatinine (0.5-1.4) mg/dL Est GFR ( Amer) Est GFR (Non-Af Amer) POC Glucose (mg/dL) 297 H 141 H 158 H (65-110) mg/dL Random Glucose (70-110) mg/dL Calcium (8.4-10.5) mg/dL Phosphorus (2.5-4.5) mg/dL Magnesium (1.7-2.2) mg/dL Total Bilirubin (0.2-1.3) mg/dL AST (15-39) U/L ALT (7-56) U/L Alkaline Phosphatase (38-133) U/L Total Protein (5.8-8.3) g/dL Albumin (3.0-4.8) g/dL Globulin gm/dL Albumin/Globulin Ratio (1.1-1.8) Triglycerides (35-160) mg/dL Cholesterol (130-200) mg/dL LDL Cholesterol Direct (0-129) mg/dL HDL Cholesterol (29-60) mg/dL Procalcitonin (0.19-0.49) NG/ML Arterial Blood Potassium (3.6-5.2) mmol/L Venous Blood Potassium (3.6-5.2) mmol/L 03/19/17 03/19/17 03/19/17 Range/Units 18:00 17:45 17:45 WBC (4.5-11.0) 10^3/ul RBC (3.5-6.1) 10^6/uL Hgb (12.0-16.0) gm/dL Hct (36.0-48.0) % MCV (80.0-105.0) fL MCH (25.0-35.0) pg MCHC (31.0-37.0) g/dl RDW (11.5-14.5) % Plt Count (120.0-450.0) 10^3/uL MPV (7.0-11.0) fl Gran % (50.0-68.0) % Lymph % (Auto) (22.0-35.0) % Bremer % (Auto) (1.0-6.0) % Eos % (Auto) (1.5-5.0) % Baso % (Auto) (0.0-3.0) % Gran # (1.4-6.5) Lymph # (1.2-3.4) Bremer # (0.1-0.6) Eos # (0.0-0.7) Baso # (0.0-2.0) K/mm3 pCO2 28 L (35-45) mm/Hg pO2 111.0 H (30-55) mm/Hg HCO3 16.2 L (21-28) mmol/L ABG pH 7.37 (7.35-7.45) ABG Total CO2 17.1 L (22-28) mmol.L ABG O2 Saturation 98.2 H (95-98) % ABG Base Excess -7.6 L (-2.0-3.0) mmol/L ABG Potassium 4.1 (3.6-5.2) mmol/L VBG pH (7.32-7.43) VBG pCO2 (40-60) VBG HCO3 (21-28) mmol/l VBG Total CO2 (22-28) mmol.L VBG O2 Sat (Calc) (40-65) % VBG Base Excess (0.0-2.0) mmol/L VBG Potassium (3.6-5.2) mmol/L Glucose 151 H (65-105) mg/dl Lactate 1.3 (0.7-2.1) mmol/L FiO2 21.0 % Sodium 148.0 147 (132-148) mmol/L Potassium 4.0 (3.6-5.0) mmol/L Chloride 122.0 H 112 H (98-107) mmol/L Carbon Dioxide 19 L (21-33) mmol/L Anion Gap 20 (10-20) BUN 18 (7-21) mg/dL Creatinine 0.9 (0.5-1.4) mg/dL Est GFR ( Amer) > 60 Est GFR (Non-Af Amer) > 60 POC Glucose (mg/dL) (65-110) mg/dL Random Glucose 154 H (70-110) mg/dL Calcium 9.1 (8.4-10.5) mg/dL Phosphorus 2.7 (2.5-4.5) mg/dL Magnesium 2.2 (1.7-2.2) mg/dL Total Bilirubin 0.6 (0.2-1.3) mg/dL AST 20 (15-39) U/L ALT 42 (7-56) U/L Alkaline Phosphatase 82 (38-133) U/L Total Protein 7.6 (5.8-8.3) g/dL Albumin 3.9 (3.0-4.8) g/dL Globulin 3.7 gm/dL Albumin/Globulin Ratio 1.1 (1.1-1.8) Triglycerides (35-160) mg/dL Cholesterol (130-200) mg/dL LDL Cholesterol Direct (0-129) mg/dL HDL Cholesterol (29-60) mg/dL Procalcitonin 0.36 (0.19-0.49) NG/ML Arterial Blood Potassium 4.1 (3.6-5.2) mmol/L Venous Blood Potassium (3.6-5.2) mmol/L 03/19/17 03/19/17 03/19/17 Range/Units 17:45 17:13 15:58 WBC 17.1 H D (4.5-11.0) 10^3/ul RBC 3.44 L (3.5-6.1) 10^6/uL Hgb 9.3 L (12.0-16.0) gm/dL Hct 28.6 L (36.0-48.0) % MCV 83.1 (80.0-105.0) fL MCH 27.0 (25.0-35.0) pg MCHC 32.5 (31.0-37.0) g/dl RDW 16.6 H (11.5-14.5) % Plt Count 412 (120.0-450.0) 10^3/uL MPV 9.0 (7.0-11.0) fl Gran % 66.4 (50.0-68.0) % Lymph % (Auto) 19.2 L (22.0-35.0) % Bremer % (Auto) 14.2 H (1.0-6.0) % Eos % (Auto) 0.1 L (1.5-5.0) % Baso % (Auto) 0.1 (0.0-3.0) % Gran # 11.38 H (1.4-6.5) Lymph # 3.3 (1.2-3.4) Bremer # 2.4 H (0.1-0.6) Eos # 0.0 (0.0-0.7) Baso # 0.02 (0.0-2.0) K/mm3 pCO2 (35-45) mm/Hg pO2 (30-55) mm/Hg HCO3 (21-28) mmol/L ABG pH (7.35-7.45) ABG Total CO2 (22-28) mmol.L ABG O2 Saturation (95-98) % ABG Base Excess (-2.0-3.0) mmol/L ABG Potassium (3.6-5.2) mmol/L VBG pH (7.32-7.43) VBG pCO2 (40-60) VBG HCO3 (21-28) mmol/l VBG Total CO2 (22-28) mmol.L VBG O2 Sat (Calc) (40-65) % VBG Base Excess (0.0-2.0) mmol/L VBG Potassium (3.6-5.2) mmol/L Glucose (65-105) mg/dl Lactate (0.7-2.1) mmol/L FiO2 % Sodium (132-148) mmol/L Potassium (3.6-5.0) mmol/L Chloride (98-107) mmol/L Carbon Dioxide (21-33) mmol/L Anion Gap (10-20) BUN (7-21) mg/dL Creatinine (0.5-1.4) mg/dL Est GFR ( Amer) Est GFR (Non-Af Amer) POC Glucose (mg/dL) 169 H 247 H (65-110) mg/dL Random Glucose (70-110) mg/dL Calcium (8.4-10.5) mg/dL Phosphorus (2.5-4.5) mg/dL Magnesium (1.7-2.2) mg/dL Total Bilirubin (0.2-1.3) mg/dL AST (15-39) U/L ALT (7-56) U/L Alkaline Phosphatase (38-133) U/L Total Protein (5.8-8.3) g/dL Albumin (3.0-4.8) g/dL Globulin gm/dL Albumin/Globulin Ratio (1.1-1.8) Triglycerides (35-160) mg/dL Cholesterol (130-200) mg/dL LDL Cholesterol Direct (0-129) mg/dL HDL Cholesterol (29-60) mg/dL Procalcitonin (0.19-0.49) NG/ML Arterial Blood Potassium (3.6-5.2) mmol/L Venous Blood Potassium (3.6-5.2) mmol/L 03/19/17 03/19/17 Range/Units 12:47 11:30 WBC (4.5-11.0) 10^3/ul RBC (3.5-6.1) 10^6/uL Hgb (12.0-16.0) gm/dL Hct (36.0-48.0) % MCV (80.0-105.0) fL MCH (25.0-35.0) pg MCHC (31.0-37.0) g/dl RDW (11.5-14.5) % Plt Count (120.0-450.0) 10^3/uL MPV (7.0-11.0) fl Gran % (50.0-68.0) % Lymph % (Auto) (22.0-35.0) % Bremer % (Auto) (1.0-6.0) % Eos % (Auto) (1.5-5.0) % Baso % (Auto) (0.0-3.0) % Gran # (1.4-6.5) Lymph # (1.2-3.4) Bremer # (0.1-0.6) Eos # (0.0-0.7) Baso # (0.0-2.0) K/mm3 pCO2 (35-45) mm/Hg pO2 53 (30-55) mm/Hg HCO3 (21-28) mmol/L ABG pH (7.35-7.45) ABG Total CO2 (22-28) mmol.L ABG O2 Saturation (95-98) % ABG Base Excess (-2.0-3.0) mmol/L ABG Potassium (3.6-5.2) mmol/L VBG pH 7.03 L* (7.32-7.43) VBG pCO2 31.0 L (40-60) VBG HCO3 8.2 L (21-28) mmol/l VBG Total CO2 9.2 L (22-28) mmol.L VBG O2 Sat (Calc) 83.1 H (40-65) % VBG Base Excess -21.6 L (0.0-2.0) mmol/L VBG Potassium 5.0 (3.6-5.2) mmol/L Glucose 565 H* D (65-105) mg/dl Lactate 2.6 H (0.7-2.1) mmol/L FiO2 21.0 % Sodium 140.0 145 (132-148) mmol/L Potassium 4.8 (3.6-5.0) mmol/L Chloride 109.0 H 112 H (98-107) mmol/L Carbon Dioxide 12 L (21-33) mmol/L Anion Gap 26 H (10-20) BUN 20 (7-21) mg/dL Creatinine 1.1 (0.5-1.4) mg/dL Est GFR ( Amer) > 60 Est GFR (Non-Af Amer) 55 POC Glucose (mg/dL) (65-110) mg/dL Random Glucose 332 H* D (70-110) mg/dL Calcium 9.0 (8.4-10.5) mg/dL Phosphorus (2.5-4.5) mg/dL Magnesium (1.7-2.2) mg/dL Total Bilirubin (0.2-1.3) mg/dL AST (15-39) U/L ALT (7-56) U/L Alkaline Phosphatase (38-133) U/L Total Protein (5.8-8.3) g/dL Albumin (3.0-4.8) g/dL Globulin gm/dL Albumin/Globulin Ratio (1.1-1.8) Triglycerides (35-160) mg/dL Cholesterol (130-200) mg/dL LDL Cholesterol Direct (0-129) mg/dL HDL Cholesterol (29-60) mg/dL Procalcitonin (0.19-0.49) NG/ML Arterial Blood Potassium (3.6-5.2) mmol/L Venous Blood Potassium 5.0 (3.6-5.2) mmol/L Laboratory Results - last 24 hr 03/19/17 03/19/17 03/19/17 11:30 12:47 15:58 WBC RBC Hgb Hct MCV MCH MCHC RDW Plt Count MPV Gran % Lymph % (Auto) Bremer % (Auto) Eos % (Auto) Baso % (Auto) Gran # Lymph # Bremer # Eos # Baso # pCO2 pO2 53 HCO3 ABG pH ABG Total CO2 ABG O2 Saturation ABG Base Excess ABG Potassium VBG pH 7.03 L* VBG pCO2 31.0 L VBG HCO3 8.2 L VBG Total CO2 9.2 L VBG O2 Sat (Calc) 83.1 H VBG Base Excess -21.6 L VBG Potassium 5.0 Glucose 565 H* D Lactate 2.6 H FiO2 21.0 Sodium 145 140.0 Potassium 4.8 Chloride 112 H 109.0 H Carbon Dioxide 12 L Anion Gap 26 H BUN 20 Creatinine 1.1 Est GFR ( Amer) > 60 Est GFR (Non-Af Amer) 55 POC Glucose (mg/dL) 247 H Random Glucose 332 H* D Calcium 9.0 Phosphorus Magnesium Total Bilirubin AST ALT Alkaline Phosphatase Total Protein Albumin Globulin Albumin/Globulin Ratio Triglycerides Cholesterol LDL Cholesterol Direct HDL Cholesterol Procalcitonin Arterial Blood Potassium Venous Blood Potassium 5.0 03/19/17 03/19/17 03/19/17 17:13 17:45 17:45 WBC 17.1 H D RBC 3.44 L Hgb 9.3 L Hct 28.6 L MCV 83.1 MCH 27.0 MCHC 32.5 RDW 16.6 H Plt Count 412 MPV 9.0 Gran % 66.4 Lymph % (Auto) 19.2 L Bremer % (Auto) 14.2 H Eos % (Auto) 0.1 L Baso % (Auto) 0.1 Gran # 11.38 H Lymph # 3.3 Bremer # 2.4 H Eos # 0.0 Baso # 0.02 pCO2 pO2 HCO3 ABG pH ABG Total CO2 ABG O2 Saturation ABG Base Excess ABG Potassium VBG pH VBG pCO2 VBG HCO3 VBG Total CO2 VBG O2 Sat (Calc) VBG Base Excess VBG Potassium Glucose Lactate FiO2 Sodium 147 Potassium 4.0 Chloride 112 H Carbon Dioxide 19 L Anion Gap 20 BUN 18 Creatinine 0.9 Est GFR ( Amer) > 60 Est GFR (Non-Af Amer) > 60 POC Glucose (mg/dL) 169 H Random Glucose 154 H Calcium 9.1 Phosphorus 2.7 Magnesium 2.2 Total Bilirubin 0.6 AST 20 ALT 42 Alkaline Phosphatase 82 Total Protein 7.6 Albumin 3.9 Globulin 3.7 Albumin/Globulin Ratio 1.1 Triglycerides Cholesterol LDL Cholesterol Direct HDL Cholesterol Procalcitonin Arterial Blood Potassium Venous Blood Potassium 03/19/17 03/19/17 03/19/17 17:45 18:00 18:17 WBC RBC Hgb Hct MCV MCH MCHC RDW Plt Count MPV Gran % Lymph % (Auto) Bremer % (Auto) Eos % (Auto) Baso % (Auto) Gran # Lymph # Bremer # Eos # Baso # pCO2 28 L pO2 111.0 H HCO3 16.2 L ABG pH 7.37 ABG Total CO2 17.1 L ABG O2 Saturation 98.2 H ABG Base Excess -7.6 L ABG Potassium 4.1 VBG pH VBG pCO2 VBG HCO3 VBG Total CO2 VBG O2 Sat (Calc) VBG Base Excess VBG Potassium Glucose 151 H Lactate 1.3 FiO2 21.0 Sodium 148.0 Potassium Chloride 122.0 H Carbon Dioxide Anion Gap BUN Creatinine Est GFR ( Amer) Est GFR (Non-Af Amer) POC Glucose (mg/dL) 158 H Random Glucose Calcium Phosphorus Magnesium Total Bilirubin AST ALT Alkaline Phosphatase Total Protein Albumin Globulin Albumin/Globulin Ratio Triglycerides Cholesterol LDL Cholesterol Direct HDL Cholesterol Procalcitonin 0.36 Arterial Blood Potassium 4.1 Venous Blood Potassium 03/19/17 03/19/17 03/20/17 19:05 22:13 06:00 WBC RBC Hgb Hct MCV MCH MCHC RDW Plt Count MPV Gran % Lymph % (Auto) Bremer % (Auto) Eos % (Auto) Baso % (Auto) Gran # Lymph # Bremer # Eos # Baso # pCO2 11 L* pO2 171.0 H HCO3 4.0 L* ABG pH 7.17 L* ABG Total CO2 4.3 L ABG O2 Saturation 98.4 H ABG Base Excess -21.9 L ABG Potassium 2.2 L* VBG pH VBG pCO2 VBG HCO3 VBG Total CO2 VBG O2 Sat (Calc) VBG Base Excess VBG Potassium Glucose 266 H Lactate 0.8 FiO2 21.0 Sodium 156.0 H Potassium Chloride 138.0 H Carbon Dioxide Anion Gap BUN Creatinine Est GFR ( Amer) Est GFR (Non-Af Amer) POC Glucose (mg/dL) 141 H 297 H Random Glucose Calcium Phosphorus Magnesium Total Bilirubin AST ALT Alkaline Phosphatase Total Protein Albumin Globulin Albumin/Globulin Ratio Triglycerides Cholesterol LDL Cholesterol Direct HDL Cholesterol Procalcitonin Arterial Blood Potassium 2.2 L* Venous Blood Potassium 03/20/17 03/20/17 03/20/17 07:16 09:15 11:11 WBC RBC Hgb Hct MCV MCH MCHC RDW Plt Count MPV Gran % Lymph % (Auto) Bremer % (Auto) Eos % (Auto) Baso % (Auto) Gran # Lymph # Bremer # Eos # Baso # pCO2 17 L* pO2 126.0 H HCO3 5.7 L* ABG pH 7.13 L* ABG Total CO2 6.2 L ABG O2 Saturation 98.6 H ABG Base Excess -21.4 L ABG Potassium 4.6 VBG pH VBG pCO2 VBG HCO3 VBG Total CO2 VBG O2 Sat (Calc) VBG Base Excess VBG Potassium Glucose 539 H* D Lactate 1.3 FiO2 21.0 Sodium 147.0 153 H Potassium 4.0 Chloride 120.0 H 120 H Carbon Dioxide 15 L Anion Gap 22 H BUN 17 Creatinine 0.9 Est GFR ( Amer) > 60 Est GFR (Non-Af Amer) > 60 POC Glucose (mg/dL) 470 H* Random Glucose 294 H Calcium 8.5 Phosphorus 2.7 Magnesium 2.2 Total Bilirubin 0.5 AST 16 ALT 35 Alkaline Phosphatase 62 Total Protein 6.5 Albumin 3.3 Globulin 3.2 Albumin/Globulin Ratio 1.0 L Triglycerides 125 Cholesterol 198 LDL Cholesterol Direct 70 HDL Cholesterol 88 H Procalcitonin Arterial Blood Potassium 4.6 Venous Blood Potassium 03/20/17 03/20/17 11:11 11:11 WBC 16.1 H RBC 3.21 L Hgb 8.6 L Hct 27.3 L MCV 85.0 MCH 26.8 MCHC 31.5 RDW 17.2 H Plt Count 367 MPV 8.2 Gran % 77.9 H Lymph % (Auto) 15.1 L Bremer % (Auto) 6.9 H Eos % (Auto) 0.0 L Baso % (Auto) 0.1 Gran # 12.55 H Lymph # 2.4 Bremer # 1.1 H Eos # 0.0 Baso # 0.01 pCO2 pO2 49 HCO3 ABG pH ABG Total CO2 ABG O2 Saturation ABG Base Excess ABG Potassium VBG pH 7.19 L* VBG pCO2 37.0 L VBG HCO3 14.1 L VBG Total CO2 15.2 L VBG O2 Sat (Calc) 87.1 H VBG Base Excess -13.3 L VBG Potassium 4.0 Glucose 313 H Lactate 1.6 FiO2 21.0 Sodium 153.0 H Potassium Chloride 127.0 H Carbon Dioxide Anion Gap BUN Creatinine Est GFR ( Amer) Est GFR (Non-Af Amer) POC Glucose (mg/dL) Random Glucose Calcium Phosphorus Magnesium Total Bilirubin AST ALT Alkaline Phosphatase Total Protein Albumin Globulin Albumin/Globulin Ratio Triglycerides Cholesterol LDL Cholesterol Direct HDL Cholesterol Procalcitonin Arterial Blood Potassium Venous Blood Potassium 4.0 Fingerstick Blood Sugar Results: 470 Assessment/Plan - Assessment and Plan (Free Text) Plan: 42 y/o F with PMH HTN, CAD, and DM presents with DKA. Pt had insulin drip stopped and IV access infiltration yesterday evening. Pt reopened anion gap and glucose began to increase. Pt restarted on insulin drip and was given 2 amps of bicarb. Pt will be follow with serial BMP's to monitor anion gaps and accuchecks every hour. Will continue to monitor closely. Neuro: AAOx3 Monitor for worsening mental status Cardio: Hemodynamically stable Maintain MAP >65 Pulm: BIPAP Maintain o2 sat >90% Will monitor and transition to nasal cannula GI: NPO Protonix Dr. Gomez following Nephro: Replenish electrolytes as needed Maintain euvolemia Continue NS @ 150 cc/hr Heme/ID: Afebrile, leukocytosis stable Follow cultures Maintain normothermia PPX: Protonix Heparin Seen, reviewed, and discussed with attending Melina PGY-1 Central Line Placement - Central Line Placement Indication: Unable To Obtain Adequate Peripheral Access Central Line Placement: Right: Internal Jugular The Area Was Thoroughly Prepared With: Chlorhexidine, Draped Using Sterile Technique Area Was Locally Anesthetized With: Lidocaine 1% Procedure: Triple Lumen, Placed Using Standard Seldinger Technique, Catheter Was Sewn Into Place, CXR Ordered To Confirm Placement <Nya GARCIA,Inadenise H - Last Filed: 03/20/17 15:24> CCU Objective - Vital Signs / Intake & Output Vital Signs (Last 4 hours): Vital Signs Temp Pulse Resp BP Pulse Ox 03/20/17 14:40 103 H 32 H 100 03/20/17 14:30 104 H 100 03/20/17 14:20 103 H 20 100 03/20/17 14:10 106 H 19 100 03/20/17 14:03 109 H 25 H 03/20/17 14:02 107 H 37 H 03/20/17 14:01 108 H 22 03/20/17 14:00 102 H 22 115/55 L 95 03/20/17 13:50 112 H 22 85 L 03/20/17 13:40 102 H 17 100 03/20/17 13:30 102 H 28 H 100 03/20/17 13:23 109 H 24 03/20/17 13:22 106 H 23 03/20/17 13:21 103 H 20 03/20/17 13:20 106 H 28 H 03/20/17 13:19 103 H 21 03/20/17 13:18 102 H 28 H 03/20/17 13:17 101 H 19 03/20/17 13:16 101 H 22 03/20/17 13:15 100 H 18 03/20/17 13:10 105 H 100 03/20/17 13:00 103 H 20 111/67 100 03/20/17 12:50 101 H 17 97 03/20/17 12:40 107 H 21 84 L 03/20/17 12:30 101 H 100 03/20/17 12:20 101 H 15 100 03/20/17 12:10 99 H 10 L 100 03/20/17 12:00 98.5 F 100 H 21 116/60 100 03/20/17 11:50 96 H 20 100 03/20/17 11:40 92 H 17 100 03/20/17 11:30 91 H 19 100 Intake and Output (Last 8hrs): Intake & Output 03/20/17 03/20/17 03/20/17 06:59 14:59 22:59 Intake Total 1250 200 Output Total 900 Balance 350 200 Intake: IV 1250 200 Right Hand 1250 Output: Urine 900 Urine, Voided 900 Other: Voiding Method Bedpan - Medications Active Medications: Active Medications Generic Name Dose Route Start Last Admin Trade Name Cliftonq PRN Reason Stop Dose Admin Amlodipine Besylate 2.5 mg 03/20/17 10:00 03/20/17 10:33 Norvasc PO Not Given DAILY MICHELLE Heparin Sodium (Porcine) 5,000 units 03/20/17 22:00 Heparin SC Q12 MICHELLE Protocol Meropenem 1g/NS 100mL IVPB 1 gm in 100 mls @ 100 mls/hr 03/19/17 22:00 11:07 Meropenem 1g/Ns 100ml Ivpb IVPB 03/27/17 22:01 100 mls/hr Q12 MICHELLE Administration Protocol Insulin Human Regular 100 100 mls @ 4 mls/hr 03/20/17 12:29 03/20/17 14:05 units/ Sodium Chloride IV 1.5 units/hr .Q24H PRN 1.5 mls/hr TITRATE PER MD ORDER Administration Protocol 4 UNITS/HR Dextrose/Sodium Chloride 1,000 mls @ 125 mls/hr 03/20/17 14:15 03/20/17 14:23 Dextrose 5%/0.45% Ns 1000 Ml IV 125 mls/hr .Q8H [facility] Administration Insulin Detemir 20 unit 03/20/17 22:00 Levemir SC HS [facility] Insulin Human Lispro 0 units 03/20/17 11:30 Humalog High SC ACHS [facility] Protocol Insulin Human Regular 10 units 03/20/17 16:30 Humulin R SC AC [facility] Metoprolol Tartrate 25 mg 03/19/17 18:00 03/20/17 10:33 Lopressor PO Not Given BID [facility] Morphine Sulfate 2 mg 03/19/17 16:17 03/20/17 13:07 Morphine IVP 2 mg Q4H PRN Administration Pain, severe (8-10) Ondansetron HCl 4 mg 03/19/17 10:38 Zofran Inj IM Q6H PRN Nausea/Vomiting Pantoprazole Sodium 40 mg 03/20/17 06:00 03/20/17 06:52 Protonix Inj IV Not Given 0600 [facility] Sucralfate 1 gm 03/19/17 18:00 03/20/17 10:33 Carafate Tab PO Not Given BID [facility] - Patient Studies Lab Studies: Lab Studies 03/20/17 03/20/17 03/20/17 Range/Units 11:11 11:11 11:11 WBC 16.1 H (4.5-11.0) 10^3/ul RBC 3.21 L (3.5-6.1) 10^6/uL Hgb 8.6 L (12.0-16.0) gm/dL Hct 27.3 L (36.0-48.0) % MCV 85.0 (80.0-105.0) fL MCH 26.8 (25.0-35.0) pg MCHC 31.5 (31.0-37.0) g/dl RDW 17.2 H (11.5-14.5) % Plt Count 367 (120.0-450.0) 10^3/uL MPV 8.2 (7.0-11.0) fl Gran % 77.9 H (50.0-68.0) % Lymph % (Auto) 15.1 L (22.0-35.0) % Bremer % (Auto) 6.9 H (1.0-6.0) % Eos % (Auto) 0.0 L (1.5-5.0) % Baso % (Auto) 0.1 (0.0-3.0) % Gran # 12.55 H (1.4-6.5) Lymph # 2.4 (1.2-3.4) Bremer # 1.1 H (0.1-0.6) Eos # 0.0 (0.0-0.7) Baso # 0.01 (0.0-2.0) K/mm3 pCO2 (35-45) mm/Hg pO2 49 (80-100) mm/Hg HCO3 (21-28) mmol/L ABG pH (7.35-7.45) ABG Total CO2 (22-28) mmol.L ABG O2 Saturation (95-98) % ABG Base Excess (-2.0-3.0) mmol/L ABG Potassium (3.6-5.2) mmol/L VBG pH 7.19 L* (7.32-7.43) VBG pCO2 37.0 L (40-60) VBG HCO3 14.1 L (21-28) mmol/l VBG Total CO2 15.2 L (22-28) mmol.L VBG O2 Sat (Calc) 87.1 H (40-65) % VBG Base Excess -13.3 L (0.0-2.0) mmol/L VBG Potassium 4.0 (3.6-5.2) mmol/L Sodium 153.0 H (132-148) mmol/L Chloride 127.0 H (98-107) mmol/L Glucose 313 H (65-105) mg/dl Lactate 1.6 (0.7-2.1) mmol/L FiO2 21.0 % Potassium (3.6-5.0) mmol/L Carbon Dioxide (21-33) mmol/L Anion Gap (10-20) BUN (7-21) mg/dL Creatinine (0.5-1.4) mg/dL Est GFR ( Amer) Est GFR (Non-Af Amer) POC Glucose (mg/dL) (65-110) mg/dL Random Glucose (70-110) mg/dL Calcium (8.4-10.5) mg/dL Phosphorus (2.5-4.5) mg/dL Magnesium (1.7-2.2) mg/dL Total Bilirubin (0.2-1.3) mg/dL AST (15-39) U/L ALT (7-56) U/L Alkaline Phosphatase (38-133) U/L Total Protein (5.8-8.3) g/dL Albumin (3.0-4.8) g/dL Globulin gm/dL Albumin/Globulin Ratio (1.1-1.8) Triglycerides (35-160) mg/dL Cholesterol (130-200) mg/dL LDL Cholesterol Direct (0-129) mg/dL HDL Cholesterol (29-60) mg/dL Procalcitonin (0.19-0.49) NG/ML TSH 3rd Generation 0.38 L (0.46-4.68) mIU/mL Arterial Blood Potassium (3.6-5.2) mmol/L Venous Blood Potassium 4.0 (3.6-5.2) mmol/L 03/20/17 03/20/17 03/20/17 Range/Units 11:11 09:15 07:16 WBC (4.5-11.0) 10^3/ul RBC (3.5-6.1) 10^6/uL Hgb (12.0-16.0) gm/dL Hct (36.0-48.0) % MCV (80.0-105.0) fL MCH (25.0-35.0) pg MCHC (31.0-37.0) g/dl RDW (11.5-14.5) % Plt Count (120.0-450.0) 10^3/uL MPV (7.0-11.0) fl Gran % (50.0-68.0) % Lymph % (Auto) (22.0-35.0) % Bremer % (Auto) (1.0-6.0) % Eos % (Auto) (1.5-5.0) % Baso % (Auto) (0.0-3.0) % Gran # (1.4-6.5) Lymph # (1.2-3.4) Bremer # (0.1-0.6) Eos # (0.0-0.7) Baso # (0.0-2.0) K/mm3 pCO2 17 L* (35-45) mm/Hg pO2 126.0 H (80-100) mm/Hg HCO3 5.7 L* (21-28) mmol/L ABG pH 7.13 L* (7.35-7.45) ABG Total CO2 6.2 L (22-28) mmol.L ABG O2 Saturation 98.6 H (95-98) % ABG Base Excess -21.4 L (-2.0-3.0) mmol/L ABG Potassium 4.6 (3.6-5.2) mmol/L VBG pH (7.32-7.43) VBG pCO2 (40-60) VBG HCO3 (21-28) mmol/l VBG Total CO2 (22-28) mmol.L VBG O2 Sat (Calc) (40-65) % VBG Base Excess (0.0-2.0) mmol/L VBG Potassium (3.6-5.2) mmol/L Sodium 153 H 147.0 (132-148) mmol/L Chloride 120 H 120.0 H (98-107) mmol/L Glucose 539 H* D (65-105) mg/dl Lactate 1.3 (0.7-2.1) mmol/L FiO2 21.0 % Potassium 4.0 (3.6-5.0) mmol/L Carbon Dioxide 15 L (21-33) mmol/L Anion Gap 22 H (10-20) BUN 17 (7-21) mg/dL Creatinine 0.9 (0.5-1.4) mg/dL Est GFR ( Amer) > 60 Est GFR (Non-Af Amer) > 60 POC Glucose (mg/dL) 470 H* (65-110) mg/dL Random Glucose 294 H (70-110) mg/dL Calcium 8.5 (8.4-10.5) mg/dL Phosphorus 2.7 (2.5-4.5) mg/dL Magnesium 2.2 (1.7-2.2) mg/dL Total Bilirubin 0.5 (0.2-1.3) mg/dL AST 16 (15-39) U/L ALT 35 (7-56) U/L Alkaline Phosphatase 62 (38-133) U/L Total Protein 6.5 (5.8-8.3) g/dL Albumin 3.3 (3.0-4.8) g/dL Globulin 3.2 gm/dL Albumin/Globulin Ratio 1.0 L (1.1-1.8) Triglycerides 125 (35-160) mg/dL Cholesterol 198 (130-200) mg/dL LDL Cholesterol Direct 70 (0-129) mg/dL HDL Cholesterol 88 H (29-60) mg/dL Procalcitonin (0.19-0.49) NG/ML TSH 3rd Generation (0.46-4.68) mIU/mL Arterial Blood Potassium 4.6 (3.6-5.2) mmol/L Venous Blood Potassium (3.6-5.2) mmol/L 03/20/17 03/19/17 03/19/17 Range/Units 06:00 22:13 19:05 WBC (4.5-11.0) 10^3/ul RBC (3.5-6.1) 10^6/uL Hgb (12.0-16.0) gm/dL Hct (36.0-48.0) % MCV (80.0-105.0) fL MCH (25.0-35.0) pg MCHC (31.0-37.0) g/dl RDW (11.5-14.5) % Plt Count (120.0-450.0) 10^3/uL MPV (7.0-11.0) fl Gran % (50.0-68.0) % Lymph % (Auto) (22.0-35.0) % Bremer % (Auto) (1.0-6.0) % Eos % (Auto) (1.5-5.0) % Baso % (Auto) (0.0-3.0) % Gran # (1.4-6.5) Lymph # (1.2-3.4) Bremer # (0.1-0.6) Eos # (0.0-0.7) Baso # (0.0-2.0) K/mm3 pCO2 11 L* (35-45) mm/Hg pO2 171.0 H (80-100) mm/Hg HCO3 4.0 L* (21-28) mmol/L ABG pH 7.17 L* (7.35-7.45) ABG Total CO2 4.3 L (22-28) mmol.L ABG O2 Saturation 98.4 H (95-98) % ABG Base Excess -21.9 L (-2.0-3.0) mmol/L ABG Potassium 2.2 L* (3.6-5.2) mmol/L VBG pH (7.32-7.43) VBG pCO2 (40-60) VBG HCO3 (21-28) mmol/l VBG Total CO2 (22-28) mmol.L VBG O2 Sat (Calc) (40-65) % VBG Base Excess (0.0-2.0) mmol/L VBG Potassium (3.6-5.2) mmol/L Sodium 156.0 H (132-148) mmol/L Chloride 138.0 H (98-107) mmol/L Glucose 266 H (65-105) mg/dl Lactate 0.8 (0.7-2.1) mmol/L FiO2 21.0 % Potassium (3.6-5.0) mmol/L Carbon Dioxide (21-33) mmol/L Anion Gap (10-20) BUN (7-21) mg/dL Creatinine (0.5-1.4) mg/dL Est GFR ( Amer) Est GFR (Non-Af Amer) POC Glucose (mg/dL) 297 H 141 H (65-110) mg/dL Random Glucose (70-110) mg/dL Calcium (8.4-10.5) mg/dL Phosphorus (2.5-4.5) mg/dL Magnesium (1.7-2.2) mg/dL Total Bilirubin (0.2-1.3) mg/dL AST (15-39) U/L ALT (7-56) U/L Alkaline Phosphatase (38-133) U/L Total Protein (5.8-8.3) g/dL Albumin (3.0-4.8) g/dL Globulin gm/dL Albumin/Globulin Ratio (1.1-1.8) Triglycerides (35-160) mg/dL Cholesterol (130-200) mg/dL LDL Cholesterol Direct (0-129) mg/dL HDL Cholesterol (29-60) mg/dL Procalcitonin (0.19-0.49) NG/ML TSH 3rd Generation (0.46-4.68) mIU/mL Arterial Blood Potassium 2.2 L* (3.6-5.2) mmol/L Venous Blood Potassium (3.6-5.2) mmol/L 03/19/17 03/19/17 03/19/17 Range/Units 18:17 18:00 17:45 WBC (4.5-11.0) 10^3/ul RBC (3.5-6.1) 10^6/uL Hgb (12.0-16.0) gm/dL Hct (36.0-48.0) % MCV (80.0-105.0) fL MCH (25.0-35.0) pg MCHC (31.0-37.0) g/dl RDW (11.5-14.5) % Plt Count (120.0-450.0) 10^3/uL MPV (7.0-11.0) fl Gran % (50.0-68.0) % Lymph % (Auto) (22.0-35.0) % Bremer % (Auto) (1.0-6.0) % Eos % (Auto) (1.5-5.0) % Baso % (Auto) (0.0-3.0) % Gran # (1.4-6.5) Lymph # (1.2-3.4) Bremer # (0.1-0.6) Eos # (0.0-0.7) Baso # (0.0-2.0) K/mm3 pCO2 28 L (35-45) mm/Hg pO2 111.0 H (80-100) mm/Hg HCO3 16.2 L (21-28) mmol/L ABG pH 7.37 (7.35-7.45) ABG Total CO2 17.1 L (22-28) mmol.L ABG O2 Saturation 98.2 H (95-98) % ABG Base Excess -7.6 L (-2.0-3.0) mmol/L ABG Potassium 4.1 (3.6-5.2) mmol/L VBG pH (7.32-7.43) VBG pCO2 (40-60) VBG HCO3 (21-28) mmol/l VBG Total CO2 (22-28) mmol.L VBG O2 Sat (Calc) (40-65) % VBG Base Excess (0.0-2.0) mmol/L VBG Potassium (3.6-5.2) mmol/L Sodium 148.0 (132-148) mmol/L Chloride 122.0 H (98-107) mmol/L Glucose 151 H (65-105) mg/dl Lactate 1.3 (0.7-2.1) mmol/L FiO2 21.0 % Potassium (3.6-5.0) mmol/L Carbon Dioxide (21-33) mmol/L Anion Gap (10-20) BUN (7-21) mg/dL Creatinine (0.5-1.4) mg/dL Est GFR ( Amer) Est GFR (Non-Af Amer) POC Glucose (mg/dL) 158 H (65-110) mg/dL Random Glucose (70-110) mg/dL Calcium (8.4-10.5) mg/dL Phosphorus (2.5-4.5) mg/dL Magnesium (1.7-2.2) mg/dL Total Bilirubin (0.2-1.3) mg/dL AST (15-39) U/L ALT (7-56) U/L Alkaline Phosphatase (38-133) U/L Total Protein (5.8-8.3) g/dL Albumin (3.0-4.8) g/dL Globulin gm/dL Albumin/Globulin Ratio (1.1-1.8) Triglycerides (35-160) mg/dL Cholesterol (130-200) mg/dL LDL Cholesterol Direct (0-129) mg/dL HDL Cholesterol (29-60) mg/dL Procalcitonin 0.36 (0.19-0.49) NG/ML TSH 3rd Generation (0.46-4.68) mIU/mL Arterial Blood Potassium 4.1 (3.6-5.2) mmol/L Venous Blood Potassium (3.6-5.2) mmol/L 03/19/17 03/19/17 03/19/17 Range/Units 17:45 17:45 17:13 WBC 17.1 H D (4.5-11.0) 10^3/ul RBC 3.44 L (3.5-6.1) 10^6/uL Hgb 9.3 L (12.0-16.0) gm/dL Hct 28.6 L (36.0-48.0) % MCV 83.1 (80.0-105.0) fL MCH 27.0 (25.0-35.0) pg MCHC 32.5 (31.0-37.0) g/dl RDW 16.6 H (11.5-14.5) % Plt Count 412 (120.0-450.0) 10^3/uL MPV 9.0 (7.0-11.0) fl Gran % 66.4 (50.0-68.0) % Lymph % (Auto) 19.2 L (22.0-35.0) % Bremer % (Auto) 14.2 H (1.0-6.0) % Eos % (Auto) 0.1 L (1.5-5.0) % Baso % (Auto) 0.1 (0.0-3.0) % Gran # 11.38 H (1.4-6.5) Lymph # 3.3 (1.2-3.4) Bremer # 2.4 H (0.1-0.6) Eos # 0.0 (0.0-0.7) Baso # 0.02 (0.0-2.0) K/mm3 pCO2 (35-45) mm/Hg pO2 (80-100) mm/Hg HCO3 (21-28) mmol/L ABG pH (7.35-7.45) ABG Total CO2 (22-28) mmol.L ABG O2 Saturation (95-98) % ABG Base Excess (-2.0-3.0) mmol/L ABG Potassium (3.6-5.2) mmol/L VBG pH (7.32-7.43) VBG pCO2 (40-60) VBG HCO3 (21-28) mmol/l VBG Total CO2 (22-28) mmol.L VBG O2 Sat (Calc) (40-65) % VBG Base Excess (0.0-2.0) mmol/L VBG Potassium (3.6-5.2) mmol/L Sodium 147 (132-148) mmol/L Chloride 112 H (98-107) mmol/L Glucose (65-105) mg/dl Lactate (0.7-2.1) mmol/L FiO2 % Potassium 4.0 (3.6-5.0) mmol/L Carbon Dioxide 19 L (21-33) mmol/L Anion Gap 20 (10-20) BUN 18 (7-21) mg/dL Creatinine 0.9 (0.5-1.4) mg/dL Est GFR ( Amer) > 60 Est GFR (Non-Af Amer) > 60 POC Glucose (mg/dL) 169 H (65-110) mg/dL Random Glucose 154 H (70-110) mg/dL Calcium 9.1 (8.4-10.5) mg/dL Phosphorus 2.7 (2.5-4.5) mg/dL Magnesium 2.2 (1.7-2.2) mg/dL Total Bilirubin 0.6 (0.2-1.3) mg/dL AST 20 (15-39) U/L ALT 42 (7-56) U/L Alkaline Phosphatase 82 (38-133) U/L Total Protein 7.6 (5.8-8.3) g/dL Albumin 3.9 (3.0-4.8) g/dL Globulin 3.7 gm/dL Albumin/Globulin Ratio 1.1 (1.1-1.8) Triglycerides (35-160) mg/dL Cholesterol (130-200) mg/dL LDL Cholesterol Direct (0-129) mg/dL HDL Cholesterol (29-60) mg/dL Procalcitonin (0.19-0.49) NG/ML TSH 3rd Generation (0.46-4.68) mIU/mL Arterial Blood Potassium (3.6-5.2) mmol/L Venous Blood Potassium (3.6-5.2) mmol/L 03/19/17 Range/Units 15:58 WBC (4.5-11.0) 10^3/ul RBC (3.5-6.1) 10^6/uL Hgb (12.0-16.0) gm/dL Hct (36.0-48.0) % MCV (80.0-105.0) fL MCH (25.0-35.0) pg MCHC (31.0-37.0) g/dl RDW (11.5-14.5) % Plt Count (120.0-450.0) 10^3/uL MPV (7.0-11.0) fl Gran % (50.0-68.0) % Lymph % (Auto) (22.0-35.0) % Bremer % (Auto) (1.0-6.0) % Eos % (Auto) (1.5-5.0) % Baso % (Auto) (0.0-3.0) % Gran # (1.4-6.5) Lymph # (1.2-3.4) Bremer # (0.1-0.6) Eos # (0.0-0.7) Baso # (0.0-2.0) K/mm3 pCO2 (35-45) mm/Hg pO2 (80-100) mm/Hg HCO3 (21-28) mmol/L ABG pH (7.35-7.45) ABG Total CO2 (22-28) mmol.L ABG O2 Saturation (95-98) % ABG Base Excess (-2.0-3.0) mmol/L ABG Potassium (3.6-5.2) mmol/L VBG pH (7.32-7.43) VBG pCO2 (40-60) VBG HCO3 (21-28) mmol/l VBG Total CO2 (22-28) mmol.L VBG O2 Sat (Calc) (40-65) % VBG Base Excess (0.0-2.0) mmol/L VBG Potassium (3.6-5.2) mmol/L Sodium (132-148) mmol/L Chloride (98-107) mmol/L Glucose (65-105) mg/dl Lactate (0.7-2.1) mmol/L FiO2 % Potassium (3.6-5.0) mmol/L Carbon Dioxide (21-33) mmol/L Anion Gap (10-20) BUN (7-21) mg/dL Creatinine (0.5-1.4) mg/dL Est GFR ( Amer) Est GFR (Non-Af Amer) POC Glucose (mg/dL) 247 H (65-110) mg/dL Random Glucose (70-110) mg/dL Calcium (8.4-10.5) mg/dL Phosphorus (2.5-4.5) mg/dL Magnesium (1.7-2.2) mg/dL Total Bilirubin (0.2-1.3) mg/dL AST (15-39) U/L ALT (7-56) U/L Alkaline Phosphatase (38-133) U/L Total Protein (5.8-8.3) g/dL Albumin (3.0-4.8) g/dL Globulin gm/dL Albumin/Globulin Ratio (1.1-1.8) Triglycerides (35-160) mg/dL Cholesterol (130-200) mg/dL LDL Cholesterol Direct (0-129) mg/dL HDL Cholesterol (29-60) mg/dL Procalcitonin (0.19-0.49) NG/ML TSH 3rd Generation (0.46-4.68) mIU/mL Arterial Blood Potassium (3.6-5.2) mmol/L Venous Blood Potassium (3.6-5.2) mmol/L Laboratory Results - last 24 hr 03/19/17 03/19/17 03/19/17 15:58 17:13 17:45 WBC 17.1 H D RBC 3.44 L Hgb 9.3 L Hct 28.6 L MCV 83.1 MCH 27.0 MCHC 32.5 RDW 16.6 H Plt Count 412 MPV 9.0 Gran % 66.4 Lymph % (Auto) 19.2 L Bremer % (Auto) 14.2 H Eos % (Auto) 0.1 L Baso % (Auto) 0.1 Gran # 11.38 H Lymph # 3.3 Bremer # 2.4 H Eos # 0.0 Baso # 0.02 pCO2 pO2 HCO3 ABG pH ABG Total CO2 ABG O2 Saturation ABG Base Excess ABG Potassium VBG pH VBG pCO2 VBG HCO3 VBG Total CO2 VBG O2 Sat (Calc) VBG Base Excess VBG Potassium Sodium Chloride Glucose Lactate FiO2 Potassium Carbon Dioxide Anion Gap BUN Creatinine Est GFR ( Amer) Est GFR (Non-Af Amer) POC Glucose (mg/dL) 247 H 169 H Random Glucose Calcium Phosphorus Magnesium Total Bilirubin AST ALT Alkaline Phosphatase Total Protein Albumin Globulin Albumin/Globulin Ratio Triglycerides Cholesterol LDL Cholesterol Direct HDL Cholesterol Procalcitonin TSH 3rd Generation Arterial Blood Potassium Venous Blood Potassium 03/19/17 03/19/17 03/19/17 17:45 17:45 18:00 WBC RBC Hgb Hct MCV MCH MCHC RDW Plt Count MPV Gran % Lymph % (Auto) Bremer % (Auto) Eos % (Auto) Baso % (Auto) Gran # Lymph # Bremer # Eos # Baso # pCO2 28 L pO2 111.0 H HCO3 16.2 L ABG pH 7.37 ABG Total CO2 17.1 L ABG O2 Saturation 98.2 H ABG Base Excess -7.6 L ABG Potassium 4.1 VBG pH VBG pCO2 VBG HCO3 VBG Total CO2 VBG O2 Sat (Calc) VBG Base Excess VBG Potassium Sodium 147 148.0 Chloride 112 H 122.0 H Glucose 151 H Lactate 1.3 FiO2 21.0 Potassium 4.0 Carbon Dioxide 19 L Anion Gap 20 BUN 18 Creatinine 0.9 Est GFR ( Amer) > 60 Est GFR (Non-Af Amer) > 60 POC Glucose (mg/dL) Random Glucose 154 H Calcium 9.1 Phosphorus 2.7 Magnesium 2.2 Total Bilirubin 0.6 AST 20 ALT 42 Alkaline Phosphatase 82 Total Protein 7.6 Albumin 3.9 Globulin 3.7 Albumin/Globulin Ratio 1.1 Triglycerides Cholesterol LDL Cholesterol Direct HDL Cholesterol Procalcitonin 0.36 TSH 3rd Generation Arterial Blood Potassium 4.1 Venous Blood Potassium 03/19/17 03/19/17 03/19/17 18:17 19:05 22:13 WBC RBC Hgb Hct MCV MCH MCHC RDW Plt Count MPV Gran % Lymph % (Auto) Bremer % (Auto) Eos % (Auto) Baso % (Auto) Gran # Lymph # Bremer # Eos # Baso # pCO2 pO2 HCO3 ABG pH ABG Total CO2 ABG O2 Saturation ABG Base Excess ABG Potassium VBG pH VBG pCO2 VBG HCO3 VBG Total CO2 VBG O2 Sat (Calc) VBG Base Excess VBG Potassium Sodium Chloride Glucose Lactate FiO2 Potassium Carbon Dioxide Anion Gap BUN Creatinine Est GFR ( Amer) Est GFR (Non-Af Amer) POC Glucose (mg/dL) 158 H 141 H 297 H Random Glucose Calcium Phosphorus Magnesium Total Bilirubin AST ALT Alkaline Phosphatase Total Protein Albumin Globulin Albumin/Globulin Ratio Triglycerides Cholesterol LDL Cholesterol Direct HDL Cholesterol Procalcitonin TSH 3rd Generation Arterial Blood Potassium Venous Blood Potassium 03/20/17 03/20/17 03/20/17 06:00 07:16 09:15 WBC RBC Hgb Hct MCV MCH MCHC RDW Plt Count MPV Gran % Lymph % (Auto) Bremer % (Auto) Eos % (Auto) Baso % (Auto) Gran # Lymph # Bremer # Eos # Baso # pCO2 11 L* 17 L* pO2 171.0 H 126.0 H HCO3 4.0 L* 5.7 L* ABG pH 7.17 L* 7.13 L* ABG Total CO2 4.3 L 6.2 L ABG O2 Saturation 98.4 H 98.6 H ABG Base Excess -21.9 L -21.4 L ABG Potassium 2.2 L* 4.6 VBG pH VBG pCO2 VBG HCO3 VBG Total CO2 VBG O2 Sat (Calc) VBG Base Excess VBG Potassium Sodium 156.0 H 147.0 Chloride 138.0 H 120.0 H Glucose 266 H 539 H* D Lactate 0.8 1.3 FiO2 21.0 21.0 Potassium Carbon Dioxide Anion Gap BUN Creatinine Est GFR ( Amer) Est GFR (Non-Af Amer) POC Glucose (mg/dL) 470 H* Random Glucose Calcium Phosphorus Magnesium Total Bilirubin AST ALT Alkaline Phosphatase Total Protein Albumin Globulin Albumin/Globulin Ratio Triglycerides Cholesterol LDL Cholesterol Direct HDL Cholesterol Procalcitonin TSH 3rd Generation Arterial Blood Potassium 2.2 L* 4.6 Venous Blood Potassium 03/20/17 03/20/17 03/20/17 11:11 11:11 11:11 WBC 16.1 H RBC 3.21 L Hgb 8.6 L Hct 27.3 L MCV 85.0 MCH 26.8 MCHC 31.5 RDW 17.2 H Plt Count 367 MPV 8.2 Gran % 77.9 H Lymph % (Auto) 15.1 L Bremer % (Auto) 6.9 H Eos % (Auto) 0.0 L Baso % (Auto) 0.1 Gran # 12.55 H Lymph # 2.4 Bremer # 1.1 H Eos # 0.0 Baso # 0.01 pCO2 pO2 HCO3 ABG pH ABG Total CO2 ABG O2 Saturation ABG Base Excess ABG Potassium VBG pH VBG pCO2 VBG HCO3 VBG Total CO2 VBG O2 Sat (Calc) VBG Base Excess VBG Potassium Sodium 153 H Chloride 120 H Glucose Lactate FiO2 Potassium 4.0 Carbon Dioxide 15 L Anion Gap 22 H BUN 17 Creatinine 0.9 Est GFR ( Amer) > 60 Est GFR (Non-Af Amer) > 60 POC Glucose (mg/dL) Random Glucose 294 H Calcium 8.5 Phosphorus 2.7 Magnesium 2.2 Total Bilirubin 0.5 AST 16 ALT 35 Alkaline Phosphatase 62 Total Protein 6.5 Albumin 3.3 Globulin 3.2 Albumin/Globulin Ratio 1.0 L Triglycerides 125 Cholesterol 198 LDL Cholesterol Direct 70 HDL Cholesterol 88 H Procalcitonin TSH 3rd Generation 0.38 L Arterial Blood Potassium Venous Blood Potassium 03/20/17 11:11 WBC RBC Hgb Hct MCV MCH MCHC RDW Plt Count MPV Gran % Lymph % (Auto) Bremer % (Auto) Eos % (Auto) Baso % (Auto) Gran # Lymph # Bremer # Eos # Baso # pCO2 pO2 49 HCO3 ABG pH ABG Total CO2 ABG O2 Saturation ABG Base Excess ABG Potassium VBG pH 7.19 L* VBG pCO2 37.0 L VBG HCO3 14.1 L VBG Total CO2 15.2 L VBG O2 Sat (Calc) 87.1 H VBG Base Excess -13.3 L VBG Potassium 4.0 Sodium 153.0 H Chloride 127.0 H Glucose 313 H Lactate 1.6 FiO2 21.0 Potassium Carbon Dioxide Anion Gap BUN Creatinine Est GFR ( Amer) Est GFR (Non-Af Amer) POC Glucose (mg/dL) Random Glucose Calcium Phosphorus Magnesium Total Bilirubin AST ALT Alkaline Phosphatase Total Protein Albumin Globulin Albumin/Globulin Ratio Triglycerides Cholesterol LDL Cholesterol Direct HDL Cholesterol Procalcitonin TSH 3rd Generation Arterial Blood Potassium Venous Blood Potassium 4.0 Attending/Attestation - Attestation I have personally seen and examined this patient.: Yes I have fully participated in the care of the patient.: Yes I have reviewed all pertinent clinical information: Yes Notes (Text): 03/20/17 15:21 42 y/o F w/ Unresolving DKA Overnight lost IV access Insulin dosing was unable to correct DKA Emergent need to treat severe acidosis Emergent R IJ TLC placed. 3 L NS given. Insuling ggt started . Accuchecks q1hrs K, MH, Phos monitored and replaced. NPO. BIPAP support to help with WOB. Repeat VBG to be done, q4 hrs BMP. Hep sq tid . cc time 72 min
[2017-03-20] MEDS: Insulin Regular 100 UNITS in Sodium Chloride 0.9% 99 ML IV PRN ×5 (12:31→18:44)
--- NOTE | 2017-03-20 12:49 | RAD ---
HISTORY: Central line placement COMPARISON: 03/19/2017 FINDINGS: LUNGS: No active pulmonary disease. PLEURA: No significant pleural effusion identified, no pneumothorax apparent. CARDIOVASCULAR: Normal. OSSEOUS STRUCTURES: No significant abnormalities. VISUALIZED UPPER ABDOMEN: Normal. OTHER FINDINGS: None. IMPRESSION: Right IJ line in the SVC with no pneumothorax
--- NOTE | 2017-03-20 13:14 | PN ---
DATE: 03/20/2017 GI FOLLOWUP NOTE The patient was seen and examined at the bedside earlier this morning. The patient does not have any IV access, awaiting for a PICC line, currently off insulin drip. She does complain of some abdomina l pain, but in no distress. She is not really verbal, but no vomiting, occasional nausea. No report s of any diarrhea or overt GI bleed. Her most recent blood sugar is running in the 400s. VITAL SIGNS: Temperature is 97.8. Blood pressure is 123/54. Pulse rate is 112. LABORATORY DATA: WBC is 16.1. H and H are 8.6 and 27.3. Platelets are 367. Her sodium is 153. K is 4.0. BUN 17, creatinine 0.9. Magnesium is 2.2. LFTs are within normal limits. PHYSICAL EXAMINATION: HEENT: Sclerae are anicteric. NECK: Supple. CARDIAC: S1, S2. LUNGS: Decreased breath sounds, clear. No rales or wheeze. ABDOMEN: With bowel sounds, soft. Some tenderness in the epigastric area, but no rebound or guardin g. EXTREMITIES: No edema. NEUROLOGIC: Awake, a little lethargic. She has a BiPAP. ASSESSMENT: A 42-year-old female with a history of diabetes mellitus, came with diabetic ketoacidosi s. She has history of severe gastroparesis, hypertension, coronary artery disease. The patient had leukocytosis. Blood culture and urine culture are pending. PLAN: We will continue IV Protonix q. 12. She is on IV hydration and to restart her insulin drip. She is getting a central line. The patient is on meropenem IV antibiotics. She is on DVT prophylaxi s, on morphine for pain, and on Carafate. We will continue to follow closely as per customer advocate, ID. The patient was seen and case discuss ed with Dr. Gomez. Samantha Moncadaes FARSHAD cc: [id number] TT: 03/20/2017 13:13:41 Confirmation # [id number] Dictation # [id number] scott
[2017-03-20] MEDS ORDERED: Morphine 2 mg/ml ISec IVP STA (15:11)
[2017-03-20 15:53] LABS: CHLORIDE 122 mmol/L (98-107)
[2017-03-20 15:55] LABS: BLOOD UREA NITROGEN 16 mg/dL (7-21); CALCIUM 9.2 mg/dL (8.4-10.5); CARBON DIOXIDE 20 mmol/L (21-33); GFR AFRICAN-AMERICAN > 60; GLUCOSE,RANDOM 88 mg/dL (70-110); POTASSIUM 4.1 mmol/L (3.6-5.0); SODIUM 155 mmol/L (132-148)
[2017-03-20] MEDS: Insulin Lispro (HUMAlog) HIGH Coverage SC SCH ×3 (16:17→21:42)
[2017-03-20] MEDS ORDERED: Insulin Regular 1 UNITS/0.01 ML ML SC SCH (16:30)
--- NOTE | 2017-03-20 16:32 | PN ---
DATE: 03/20/2017 ROOM: 5612 SUBJECTIVE: This is a 42-year-old female with recent uncontrolled type 1 insulin-dependent diabetes, presenting here with diabetic ketoacidosis and dehydration related to also intercurrent exacerbation of diabetic gastroparesis with intractable nausea, dyspepsia, and vomiting, and is now being followe d closely for metabolic management. Her glycemic levels are fluctuating, but improved, and her oral intake is also quite variable, as per the nursing staff. LABORATORY DATA: Her latest chemistries showed a BUN of 16, sodium 155, potassium 4.1, chloride 122, CO2 20, glucose 88, and creatinine 0.9. Her glucose levels have ranged from 120-122 mg/dL today as noted. So, at this time, we will modify her basal and bolus insulin regimen and increase the Levemir to 20 u nits subcutaneous at bedtime daily to start tonight. We will also continue the regular insulin given as 10 units subcutaneous t.i.d. before meals to start at dinnertime today as ordered. We will kilo nue the low-dose correction scale using regular insulin as given. Will follow and advise accordingly . Tamara Campo MD cc: [id number] TT: 03/20/2017 16:32:23 Confirmation # [id number] Dictation # [id number] mickie
[2017-03-20 18:31] LABS: CORTISOL AM 26.3 ug/dL (4.46-22.7)
[2017-03-20 18:50] LABS: BLOOD UREA NITROGEN 15 mg/dL (7-21); CALCIUM 9.3 mg/dL (8.4-10.5); CARBON DIOXIDE 17 mmol/L (21-33); CHLORIDE 121 mmol/L (98-107); GFR AFRICAN-AMERICAN > 60; GLUCOSE,RANDOM 132 mg/dL (70-110); POTASSIUM 4.2 mmol/L (3.6-5.0); SODIUM 154 mmol/L (132-148)
--- NOTE | 2017-03-20 19:00 | CON ---
DATE: 03/20/2017 The patient is in bed. The patient was seen in the ICU 129, bed 4. CHIEF COMPLAINT: Epigastric pain on and off for several days. HISTORY OF PRESENT ILLNESS: A 42-year-old female with a history of diabetes mellitus and history of gastroparesis, hypertension, gastritis and GERD presented to the Emergency Room with several days of abdominal and epigastric pain associated with nausea and vomiting. The patient denies any chest pain . No fevers, no chills, no headaches or blurred vision. No dysuria or frequency. PAST MEDICAL HISTORY: Significant for diabetes, coronary artery disease, GERD, diabetic gastroparesi s and diabetic ketoacidosis, E. coli urinary tract infections, history of left foot MRSA cellulitis, history of group B Strep soft tissue infection. PAST SURGICAL HISTORY: Noncontributory. ALLERGIES: The patient has no known allergies. PHYSICAL EXAMINATION: VITAL SIGNS: Temperature is 97, blood pressure is 115/50, respiratory rate of 32, heart rate of 106. HEENT: Unremarkable. NECK: Supple. LUNGS: Decreased breath sounds. HEART: Normal S1, S2. ABDOMEN: Soft, nontender. No rebound, no guarding. LABORATORY EXAMINATION: Reveals a white count of 16,000, hemoglobin of 8, platelets of 367. BUN of 16, creatinine of 0.9. Procalcitonin of 0.36. Urinalysis is noted and unremarkable. Microbiology i s pending. Initial chest x-ray from yesterday, no active disease. Dr. David Theodore's progress note is reviewed. Blood cultures are pending and urine cultures are ordered. The patient was empiricall y started on meropenem yesterday. ASSESSMENT AND PLAN: A 42-year-old female with diabetes mellitus, diabetic gastroparesis and gastrit is, diabetic ketoacidosis, urinary tract infection with urinary tract infection with Escherichia coli in the past, admitted with epigastric discomfort, tachycardia, dyspnea, leukocytosis and with a norm al urinalysis, normal procalcitonin and normal liver function tests with systemic inflammatory respon se syndrome with tachycardia and leukocytosis, probably secondary to gastroparesis in a patient with diabetic ketoacidosis. We will order a lactic acid and will also order a CAT scan of the abdomen and pelvis pending blood culture, urine cultures and currently on meropenem. Dr. Gomez, the gastroen terologist's consultation is reviewed. We will follow closely with you. Clarke Velazco MD cc: [phone] TT: 03/20/2017 19:00:11 Confirmation # [id number] Dictation # [id number] mn
[2017-03-20] MEDS ORDERED: Insulin Detemir 100 units/ml Vial (Levemir) SC SCH ×2 (22:00)
--- NOTE | 2017-03-20 23:21 | PN ---
DATE: 03/20/2017 ADDENDUM This is an addendum to the GI progress report dictated by Samantha Webb NP. This patient was seen and evaluated earlier. The patient's white cell count is now 17,000. Abdomen soft. There is no tenderness. Followup of the cultures. Would recommend to follow up. The patient does have severe gastroparesis. The patient has been followed [facility] and discussed with the patient's family and they are planning to take her to [facility] electively for continuation of the workup. Thank you very much for allowing us to participate in your patient care. Continue the present management and slowly advance the diet. Bev Gomez MD cc: [id number] TT: 03/20/2017 23:21:17 Confirmation # [id number] Dictation # [id number] ln MTDD
[2017-03-21] MEDS: Morphine 2 mg/ml ISec IVP PRN ×5 (01:43→21:37)
[2017-03-21 06:22] LABS: HEMATOCRIT 29.8 % (36.0-48.0); MEAN CELL VOLUME 85.6 fL (80.0-105.0); MEAN CORPUSCULAR HEMOGLOBIN 26.7 pg (25.0-35.0); MEAN CORPUSCULAR HGB CONC 31.2 g/dl (31.0-37.0); MEAN PLATELET VOLUME 8.6 fl (7.0-11.0); RED CELL DISTRIBUTION WIDTH 17.8 % (11.5-14.5); WHITE BLOOD COUNT 18.1 10^3/ul (4.5-11.0)
[2017-03-21 06:33] LABS: BLOOD UREA NITROGEN 13 mg/dL (7-21); CALCIUM 9.4 mg/dL (8.4-10.5); CARBON DIOXIDE 16 mmol/L (21-33); CHLORIDE 117 mmol/L (98-107); GFR AFRICAN-AMERICAN > 60; SODIUM 150 mmol/L (132-148)
[2017-03-21 06:43] LABS: GLUCOSE,RANDOM 334 mg/dL (70-110)
[2017-03-21] MEDS ORDERED: Barium Sulfate Susp 2.1% w/v, 2.0% w/w 450 mL Bottle PO ONE (07:06)
[2017-03-21] MEDS: Insulin Regular 100 UNITS in Sodium Chloride 0.9% 99 ML IV PRN (07:14)
[2017-03-21] MEDS ORDERED: Sodium Chloride 0.9% 1,000 ML IV SCH (07:30)
[2017-03-21] MEDS: Dextrose 5%/0.45% NS 1,000 ML IV SCH ×2 (07:41→12:31)
[2017-03-21] MEDS: Insulin Lispro (HUMAlog) HIGH Coverage SC SCH ×2 (08:00→12:06)
[2017-03-21] MEDS ORDERED: Lactated Ringer's 1,000 ML IV SCH (08:08)
--- NOTE | 2017-03-21 08:48 | PN ---
DATE: 03/21/2017 I see her in the intensive care unit. She is not doing that well today. The blood sugars have been in the 500s. She has been on and off dextrose and on and off IV fluids trying to help her with the D KA. She is also talking more today and also asking for food, which is good. But her blood sugar has been up and down. She has gastroparesis, hypertension, gastritis, GERD, abdominal pains which she d oes not have any today. She is being seen by the professional benefits sales consultant, infectious disease, lapping machine set up operator, the documentation writer in the intensive care unit, the cinder pit worker. She really has a lot of doctors watching her. She has a lot of issues. But she is more alert today than the other day despite the numbers. PHYSICAL EXAMINATION: VITAL SIGNS: She has a 97.7 temp, 117 pulse, 125/70 blood pressure, 24 respiratory rate, 100% on joey al cannula. HEENT: Head is atraumatic, normocephalic. HEART: Regular rate. LUNGS: Decreased breath sounds but clear. ABDOMEN: Soft. EXTREMITIES: No edema. MEDICATIONS: She is on Carafate, dextrose, heparin, insulin, lactated Ringers, Lopressor, Merrem IV, morphine, Norvasc, Protonix and Zofran. LABORATORY DATA: She has a 150 sodium, potassium is 4, BUN is 13, creatinine 0.9, GFR is greater laverne n 60. The blood sugars have been over 500 and it is presently 334. White count is up to 18.1, hemog lobin is 9.3, hematocrit 29.8, platelets of 396, and she is on IV antibiotics. Will check her labs tomorrow. Continue with aggressive treatment and care by all her specialists laverne t are seeing her trying to get her better. For 42 years old, she has a lot of issues and I am hoping we can get her through this. She is here for multiple reasons besides diabetic ketoacidosis, hypertension, urinary tract infection , gastroparesis. David Theodore DO cc: [id number] TT: 03/21/2017 08:48:29 Confirmation # [id number] Dictation # [id number] mn
--- NOTE | 2017-03-21 09:12 | RAD ---
HISTORY: Abdominal pain COMPARISON: 01/05/2017 FINDINGS: BOWEL: Normal. No obstruction. No free air. Mild constipation BONES: Normal. OTHER FINDINGS: None. IMPRESSION: No active disease.
[2017-03-21] MEDS: Meropenem 1g/NS 100mL IVPB 1 GM/100 ML PIGGYBACK IVPB SCH ×2 (09:16→22:13)
[2017-03-21 09:52] LABS: ARTERIAL BLOOD GAS HCO3 19.3 mmol/L (21-28); ARTERIAL BLOOD GAS O2 CAPACITY 12.8 mL/dl (16-24); ARTERIAL BLOOD GAS O2 CONTENT 12.7 ML/dl (15-23); ARTERIAL BLOOD GAS PH 7.35 (7.35-7.45); ARTERIAL BLOOD HGB O2 SAT 97.6 % (95.0-98.0); CARBOXYHEMOGLOBIN 0.9 % (0.5-1.5); HHB 1.1 % (0-5); METHEMOGLOBIN 0.4 % (0.0-3.0)
--- NOTE | 2017-03-21 10:02 | CP.PCM.PN ---
Subjective - Date & Time of Evaluation Date of Evaluation: 03/21/17 Time of Evaluation: 09:20 - Subjective Subjective: Patient is still having intermittent abdominal pain, no fevers overnight, no vomiting, no diarrhea. Objective - Vital Signs/Intake and Output Vital Signs (last 24 hours): Temp Pulse Resp BP Pulse Ox 97.7 F 117 H 24 106/47 L 100 03/21/17 04:00 03/21/17 06:00 03/21/17 06:00 03/21/17 09:15 03/21/17 06:00 Intake and Output: 03/21/17 03/21/17 06:59 18:59 Intake Total 1600 100 Output Total 700 Balance 900 100 - Medications Medications: Current Medications Amlodipine Besylate (Norvasc) 2.5 mg PO DAILY [facility] Last Admin: 03/21/17 09:15 Dose: 2.5 mg Heparin Sodium (Porcine) (Heparin) 5,000 units SC Q12 MICHELLE PRN Reason: Protocol Last Admin: 03/21/17 09:16 Dose: 5,000 units Meropenem 1g/NS 100mL IVPB (Meropenem 1g/Ns 100ml Ivpb) 1 gm in 100 mls @ 100 mls/hr IVPB Q12 MICHELLE PRN Reason: Protocol Stop: 03/27/17 22:01 Last Admin: 03/21/17 09:16 Dose: 100 mls/hr Insulin Human Regular 100 (units/ Sodium Chloride) 100 mls @ 4 mls/hr IV .Q24H PRN; Protocol; 4 UNITS/HR PRN Reason: TITRATE PER MD ORDER Last Admin: 03/21/17 07:14 Dose: 7 units/hr, 7 mls/hr Dextrose/Sodium Chloride (Dextrose 5%/0.45% Ns 1000 Ml) 1,000 mls @ 125 mls/hr IV .Q8H [facility] Last Admin: 03/21/17 07:41 Dose: Not Given Lactated Ringer's (Lactated Ringer's) 1,000 mls @ 150 mls/hr IV .Q6H40M [facility] Last Admin: 03/21/17 09:15 Dose: 150 mls/hr Insulin Human Lispro (Humalog High) 0 units SC ACHS MICHELLE PRN Reason: Protocol Last Admin: 03/21/17 08:00 Dose: 10 units Metoprolol Tartrate (Lopressor) 25 mg PO BID [facility] Last Admin: 03/21/17 09:15 Dose: 25 mg Morphine Sulfate (Morphine) 2 mg IVP Q4H PRN PRN Reason: Pain, severe (8-10) Last Admin: 03/21/17 08:05 Dose: 2 mg Ondansetron HCl (Zofran Inj) 4 mg IM Q6H PRN PRN Reason: Nausea/Vomiting Pantoprazole Sodium (Protonix Inj) 40 mg IV 0600 [facility] Last Admin: 03/21/17 05:54 Dose: 40 mg Sucralfate (Carafate Tab) 1 gm PO BID [facility] Last Admin: 03/21/17 09:16 Dose: 1 gm - Labs Labs: 03/21/17 05:30 03/21/17 05:30 - Constitutional Appears: Non-toxic, No Acute Distress - Head Exam Head Exam: NORMAL INSPECTION - ENT Exam ENT Exam: Mucous Membranes Moist - Neck Exam Neck Exam: absent: Lymphadenopathy, Meningismus - Respiratory Exam Respiratory Exam: Decreased Breath Sounds - Cardiovascular Exam Cardiovascular Exam: +S1, +S2 - GI/Abdominal Exam GI & Abdominal Exam: Soft, Tenderness (mild, epigastric). absent: Distended, Firm, Guarding, Rigid, Organomegaly, Rebound Assessment and Plan - Assessment and Plan (Free Text) Plan: Assessment Systemic Inflammatory Response Syndrome in a patient presenting with diabetic ketoacidosis, slowly improving, R/O sepsis R/O intra-abdominal infection, in a patient with a history of gastroparesis history of e. coli UTI CAD history of gastritis GERD history of MRSA cellulitis of the left foot history of DKA history of group B strep infection Plan Continue Merrem day 2 pending final blood and urine cx results (blood cx are negative x 24 hours); follow up CT abdomen and pelvis and we are still awaiting for it to be done Will continue to monitor clinically
--- NOTE | 2017-03-21 10:30 | PN ---
DATE: 03/21/2017 GI FOLLOWUP NOTE Seen and examined at the bedside earlier today in CCU. She was drinking oral contrast for a CT scan of abdomen and pelvis. I spoke to ICU resident. The patient was complaining of abdominal pain. She does complain of abdominal pain more in the mid abdomen. No reports of nausea or vomiting. She is now off of BiPAP and is on nasal cannula. VITAL SIGNS: Temperature is 97.7. Blood pressure is 106/47, pulse rate 117, respirations 24, 100 on nasal cannula. LABORATORY DATA: WBC is 18.1. Her hemoglobin is 9.3. Hematocrit is 29.8. Platelets are 396. Sodi um 150. K is 4.0. Chloride 117, carbon dioxide ____ , BUN 13. Creatinine is 0.9. She also had abdominal x-ray this morning, and it was normal. No obstruction or free air. Did show mild constipation. PHYSICAL EXAMINATION: HEENT: Sclerae are anicteric. NECK: Supple. CARDIAC: S1, S2. LUNGS: With decreased breath sounds, but clear. No rales or wheeze. ABDOMEN: With bowel sounds. It is soft. It does have some tenderness to mid abdomen. No rebound, guarding, or organomegaly. EXTREMITIES: No edema. NEUROLOGIC: She is more awake, alert. ASSESSMENT: Diabetic ketoacidosis. The patient with severe gastroparesis, history of diabetes celia liangs, came with leukocytosis, history of coronary artery disease, hypertension, abdominal pain now, hi story of peptic ulcer disease, chronic constipation. PLAN: Pending abdominal ultrasound, ____ pending. She is going for a CT scan of the abdomen and pel vis with oral contrast. Continue GI prophylaxis. She is on Protonix daily. She is also getting Car afate, is on IV antibiotics, meropenem, is on insulin drip and IV fluids, heparin subQ for DVT prophy laxis, as per ICU team. We will follow up the CT scan. Samantha Tracey FARSHAD cc: [id number] TT: 03/21/2017 10:29:46 Confirmation # [id number] Dictation # [id number] scott
[2017-03-21] MEDS ORDERED: Dextrose 50% SYRINGE Inj (50 ml) ONE (10:57)
[2017-03-21] MEDS ORDERED: Dextrose 50% SYRINGE Inj (50 ml) IVP ONE (10:58)
--- NOTE | 2017-03-21 11:12 | CT ---
PROCEDURE: CT Abdomen and Pelvis without intravenous contrast HISTORY: wbc 16k COMPARISON: 12/10/2016 TECHNIQUE: Without contrast. Contrast Dose: Radiation dose: Total exam DLP = 555 mGy-cm. This CT exam was performed using one or more of the following dose reduction techniques: Automated exposure control, adjustment of the mA and/or kV according to patient size, and/or use of iterative reconstruction technique. FINDINGS: LOWER THORAX: There is an alveolar infiltrate at the left lung base consistent with pneumonia LIVER: Unremarkable. No gross lesion or ductal dilatation. GALLBLADDER AND BILE DUCTS: Unremarkable. PANCREAS: Unremarkable. No gross lesion or ductal dilatation. SPLEEN: Unremarkable. ADRENALS: Unremarkable. No mass. KIDNEYS AND URETERS: There is a simple cyst in the upper pole of the right kidney. Kidneys are otherwise unremarkable VASCULATURE: Unremarkable. No aortic aneurysm. BOWEL: Unremarkable. No obstruction. No gross mural thickening. APPENDIX: Unremarkable. Normal appendix. PERITONEUM: Unremarkable. No free fluid. No free air. LYMPH NODES: Unremarkable. No enlarged lymph nodes. BLADDER: Unremarkable. REPRODUCTIVE: Unremarkable. BONES: No acute fracture. OTHER FINDINGS: None. IMPRESSION: Left lower lobe pneumonia
--- NOTE | 2017-03-21 11:13 | CP.CCUPN ---
<MelinaGamaliel - Last Filed: 03/21/17 11:18> CCU Subjective - Physician Review Subjective (Free Text): Pt seen and examined at bedside. No acute events overnight. Pt states she is thirsty and wants juice. Pt does not have any new complaints at this time. No longer complaining of abdominal pain. Denies CP, SOB, N/V/D, fevers, chills. CCU Objective - Vital Signs / Intake & Output Vital Signs (Last 4 hours): Vital Signs BP 03/21/17 09:15 106/47 L Intake and Output (Last 8hrs): Intake & Output 03/20/17 03/21/17 03/21/17 22:59 06:59 14:59 Intake Total 3700 1600 118 Output Total 800 700 Balance 2900 900 118 Intake: IV 3700 1600 118 Right Internal Jugular 3500 1600 Output: Urine 800 700 Urine, Voided 800 700 Other: Voiding Method Bedpan - Physical Exam Head: Positive for: Atraumatic, Normocephalic Pupils: Positive for: PERRL Conjunctiva: Positive for: Normal Mouth: Positive for: Dry Respiratory/Chest: Positive for: Clear to Auscultation, Good Air Exchange. Negative for: Respiratory Distress, Accessory Muscle Use Cardiovascular: Positive for: Regular Rate and Rhythm, Normal S1, S2. Negative for: Murmurs Abdomen: Positive for: Normal Bowel Sounds. Negative for: Distention, Peritoneal Signs, Rebound Upper Extremity: Positive for: Normal Inspection. Negative for: Cyanosis, Edema Lower Extremity: Positive for: Normal Inspection. Negative for: Edema Neurological: Positive for: GCS=15, CN II-XII Intact, Speech Normal, Motor Func Grossly Intact, Normal Sensory Function Skin: Positive for: Warm, Dry, Normal Color. Negative for: Rashes Psychiatric: Positive for: Alert, Oriented x 3, Normal Insight, Normal Concentration - Medications Active Medications: Active Medications Generic Name Dose Route Start Last Admin Trade Name Freq PRN Reason Stop Dose Admin Amlodipine Besylate 2.5 mg 03/20/17 10:00 03/21/17 09:15 Norvasc PO 2.5 mg DAILY MICHELLE Administration Heparin Sodium (Porcine) 5,000 units 03/20/17 22:00 03/21/17 09:16 Heparin SC 5,000 units Q12 MICHELLE Administration Protocol Meropenem 1g/NS 100mL IVPB 1 gm in 100 mls @ 100 mls/hr 03/19/17 22:00 09:16 Meropenem 1g/Ns 100ml Ivpb IVPB 03/27/17 22:01 100 mls/hr Q12 MICHELLE Administration Protocol Insulin Human Regular 100 100 mls @ 4 mls/hr 03/20/17 12:29 03/21/17 11:00 units/ Sodium Chloride IV 0.5 units/hr .Q24H PRN 0.5 mls/hr TITRATE PER MD ORDER Titration Protocol 4 UNITS/HR Dextrose/Sodium Chloride 1,000 mls @ 125 mls/hr 03/20/17 14:15 03/21/17 07:41 Dextrose 5%/0.45% Ns 1000 Ml IV Not Given .Q8H MICHELLE Insulin Human Lispro 0 units 03/20/17 11:30 03/21/17 08:00 Humalog High SC 10 units ACHS MICHELLE Administration Protocol Metoprolol Tartrate 25 mg 03/19/17 18:00 03/21/17 09:15 Lopressor PO 25 mg BID MICHELLE Administration Morphine Sulfate 2 mg 03/19/17 16:17 03/21/17 08:05 Morphine IVP 2 mg Q4H PRN Administration Pain, severe (8-10) Ondansetron HCl 4 mg 03/19/17 10:38 Zofran Inj IM Q6H PRN Nausea/Vomiting Pantoprazole Sodium 40 mg 03/20/17 06:00 03/21/17 05:54 Protonix Inj IV 40 mg 0600 MICHELLE Administration Sucralfate 1 gm 03/19/17 18:00 03/21/17 09:16 Carafate Tab PO 1 gm BID MICHELLE Administration - Patient Studies Lab Studies: Microbiology Studies 03/19/17 17:55 Blood Culture - Preliminary Blood NO GROWTH AFTER 24 HOURS 03/19/17 17:45 Blood Culture - Preliminary Blood NO GROWTH AFTER 24 HOURS Lab Studies 03/21/17 03/21/17 03/21/17 Range/Units 09:46 05:30 05:30 WBC 18.1 H (4.5-11.0) 10^3/ul RBC 3.48 L (3.5-6.1) 10^6/uL Hgb 9.3 L (12.0-16.0) gm/dL Hct 29.8 L (36.0-48.0) % MCV 85.6 (80.0-105.0) fL MCH 26.7 (25.0-35.0) pg MCHC 31.2 (31.0-37.0) g/dl RDW 17.8 H (11.5-14.5) % Plt Count 396 (120.0-450.0) 10^3/uL MPV 8.6 (7.0-11.0) fl Gran % (50.0-68.0) % Lymph % (Auto) (22.0-35.0) % [place] % (Auto) (1.0-6.0) % Eos % (Auto) (1.5-5.0) % Baso % (Auto) (0.0-3.0) % Gran # (1.4-6.5) Lymph # (1.2-3.4) [place] # (0.1-0.6) Eos # (0.0-0.7) Baso # (0.0-2.0) K/mm3 pCO2 35 (35-45) mm/Hg pO2 164.0 H (30-55) mm/Hg HCO3 19.3 L (21-28) mmol/L ABG pH 7.35 (7.35-7.45) ABG Total CO2 20.4 L (22-28) mmol.L ABG O2 Saturation 98.9 H (95-98) % ABG O2 Content 12.7 L (15-23) ML/dl ABG Base Excess -5.7 L (-2.0-3.0) mmol/L ABG Hemoglobin 9.0 L (11.7-17.4) g/dL ABG Carboxyhemoglobin 0.9 (0.5-1.5) % POC ABG HHb (Measured) 1.1 (0-5) % ABG Methemoglobin 0.4 (0.0-3.0) % ABG O2 Capacity 12.8 L (16-24) mL/dl VBG pH (7.32-7.43) VBG pCO2 (40-60) VBG HCO3 (21-28) mmol/l VBG Total CO2 (22-28) mmol.L VBG O2 Sat (Calc) (40-65) % VBG Base Excess (0.0-2.0) mmol/L VBG Potassium (3.6-5.2) mmol/L Hgb O2 Saturation 97.6 (95.0-98.0) % Sodium 150 H (132-148) mmol/L Chloride 117 H (98-107) mmol/L Glucose (65-105) mg/dl Lactate (0.7-2.1) mmol/L FiO2 36.0 % Potassium 4.0 (3.6-5.0) mmol/L Carbon Dioxide 16 L (21-33) mmol/L Anion Gap 21 H (10-20) BUN 13 (7-21) mg/dL Creatinine 0.9 (0.5-1.4) mg/dL Est GFR ( Amer) > 60 Est GFR (Non-Af Amer) > 60 POC Glucose (mg/dL) (65-110) mg/dL Random Glucose 334 H* D (70-110) mg/dL Hemoglobin A1c (4.2-6.5) % Lactic Acid (0.7-2.1) mmol/L Calcium 9.4 (8.4-10.5) mg/dL Phosphorus (2.5-4.5) mg/dL Magnesium (1.7-2.2) mg/dL Total Bilirubin (0.2-1.3) mg/dL AST (15-39) U/L ALT (7-56) U/L Alkaline Phosphatase (38-133) U/L Total Protein (5.8-8.3) g/dL Albumin (3.0-4.8) g/dL Globulin gm/dL Albumin/Globulin Ratio (1.1-1.8) Triglycerides (35-160) mg/dL Cholesterol (130-200) mg/dL LDL Cholesterol Direct (0-129) mg/dL HDL Cholesterol (29-60) mg/dL TSH 3rd Generation (0.46-4.68) mIU/mL Cortisol AM Sample (4.46-22.7) ug/dL Venous Blood Potassium (3.6-5.2) mmol/L 03/21/17 03/20/17 03/20/17 Range/Units 00:08 21:09 20:27 WBC (4.5-11.0) 10^3/ul RBC (3.5-6.1) 10^6/uL Hgb (12.0-16.0) gm/dL Hct (36.0-48.0) % MCV (80.0-105.0) fL MCH (25.0-35.0) pg MCHC (31.0-37.0) g/dl RDW (11.5-14.5) % Plt Count (120.0-450.0) 10^3/uL MPV (7.0-11.0) fl Gran % (50.0-68.0) % Lymph % (Auto) (22.0-35.0) % [place] % (Auto) (1.0-6.0) % Eos % (Auto) (1.5-5.0) % Baso % (Auto) (0.0-3.0) % Gran # (1.4-6.5) Lymph # (1.2-3.4) [place] # (0.1-0.6) Eos # (0.0-0.7) Baso # (0.0-2.0) K/mm3 pCO2 (35-45) mm/Hg pO2 (30-55) mm/Hg HCO3 (21-28) mmol/L ABG pH (7.35-7.45) ABG Total CO2 (22-28) mmol.L ABG O2 Saturation (95-98) % ABG O2 Content (15-23) ML/dl ABG Base Excess (-2.0-3.0) mmol/L ABG Hemoglobin (11.7-17.4) g/dL ABG Carboxyhemoglobin (0.5-1.5) % POC ABG HHb (Measured) (0-5) % ABG Methemoglobin (0.0-3.0) % ABG O2 Capacity (16-24) mL/dl VBG pH (7.32-7.43) VBG pCO2 (40-60) VBG HCO3 (21-28) mmol/l VBG Total CO2 (22-28) mmol.L VBG O2 Sat (Calc) (40-65) % VBG Base Excess (0.0-2.0) mmol/L VBG Potassium (3.6-5.2) mmol/L Hgb O2 Saturation (95.0-98.0) % Sodium (132-148) mmol/L Chloride (98-107) mmol/L Glucose (65-105) mg/dl Lactate (0.7-2.1) mmol/L FiO2 % Potassium (3.6-5.0) mmol/L Carbon Dioxide (21-33) mmol/L Anion Gap (10-20) BUN (7-21) mg/dL Creatinine (0.5-1.4) mg/dL Est GFR ( Amer) Est GFR (Non-Af Amer) POC Glucose (mg/dL) 238 H 111 H 120 H (65-110) mg/dL Random Glucose (70-110) mg/dL Hemoglobin A1c (4.2-6.5) % Lactic Acid (0.7-2.1) mmol/L Calcium (8.4-10.5) mg/dL Phosphorus (2.5-4.5) mg/dL Magnesium (1.7-2.2) mg/dL Total Bilirubin (0.2-1.3) mg/dL AST (15-39) U/L ALT (7-56) U/L Alkaline Phosphatase (38-133) U/L Total Protein (5.8-8.3) g/dL Albumin (3.0-4.8) g/dL Globulin gm/dL Albumin/Globulin Ratio (1.1-1.8) Triglycerides (35-160) mg/dL Cholesterol (130-200) mg/dL LDL Cholesterol Direct (0-129) mg/dL HDL Cholesterol (29-60) mg/dL TSH 3rd Generation (0.46-4.68) mIU/mL Cortisol AM Sample (4.46-22.7) ug/dL Venous Blood Potassium (3.6-5.2) mmol/L 03/20/17 03/20/17 03/20/17 Range/Units 19:25 18:20 18:19 WBC (4.5-11.0) 10^3/ul RBC (3.5-6.1) 10^6/uL Hgb (12.0-16.0) gm/dL Hct (36.0-48.0) % MCV (80.0-105.0) fL MCH (25.0-35.0) pg MCHC (31.0-37.0) g/dl RDW (11.5-14.5) % Plt Count (120.0-450.0) 10^3/uL MPV (7.0-11.0) fl Gran % (50.0-68.0) % Lymph % (Auto) (22.0-35.0) % [place] % (Auto) (1.0-6.0) % Eos % (Auto) (1.5-5.0) % Baso % (Auto) (0.0-3.0) % Gran # (1.4-6.5) Lymph # (1.2-3.4) [place] # (0.1-0.6) Eos # (0.0-0.7) Baso # (0.0-2.0) K/mm3 pCO2 (35-45) mm/Hg pO2 (30-55) mm/Hg HCO3 (21-28) mmol/L ABG pH (7.35-7.45) ABG Total CO2 (22-28) mmol.L ABG O2 Saturation (95-98) % ABG O2 Content (15-23) ML/dl ABG Base Excess (-2.0-3.0) mmol/L ABG Hemoglobin (11.7-17.4) g/dL ABG Carboxyhemoglobin (0.5-1.5) % POC ABG HHb (Measured) (0-5) % ABG Methemoglobin (0.0-3.0) % ABG O2 Capacity (16-24) mL/dl VBG pH (7.32-7.43) VBG pCO2 (40-60) VBG HCO3 (21-28) mmol/l VBG Total CO2 (22-28) mmol.L VBG O2 Sat (Calc) (40-65) % VBG Base Excess (0.0-2.0) mmol/L VBG Potassium (3.6-5.2) mmol/L Hgb O2 Saturation (95.0-98.0) % Sodium (132-148) mmol/L Chloride (98-107) mmol/L Glucose (65-105) mg/dl Lactate (0.7-2.1) mmol/L FiO2 % Potassium (3.6-5.0) mmol/L Carbon Dioxide (21-33) mmol/L Anion Gap (10-20) BUN (7-21) mg/dL Creatinine (0.5-1.4) mg/dL Est GFR ( Amer) Est GFR (Non-Af Amer) POC Glucose (mg/dL) 156 H 151 H (65-110) mg/dL Random Glucose (70-110) mg/dL Hemoglobin A1c (4.2-6.5) % Lactic Acid 1.1 (0.7-2.1) mmol/L Calcium (8.4-10.5) mg/dL Phosphorus (2.5-4.5) mg/dL Magnesium (1.7-2.2) mg/dL Total Bilirubin (0.2-1.3) mg/dL AST (15-39) U/L ALT (7-56) U/L Alkaline Phosphatase (38-133) U/L Total Protein (5.8-8.3) g/dL Albumin (3.0-4.8) g/dL Globulin gm/dL Albumin/Globulin Ratio (1.1-1.8) Triglycerides (35-160) mg/dL Cholesterol (130-200) mg/dL LDL Cholesterol Direct (0-129) mg/dL HDL Cholesterol (29-60) mg/dL TSH 3rd Generation (0.46-4.68) mIU/mL Cortisol AM Sample (4.46-22.7) ug/dL Venous Blood Potassium (3.6-5.2) mmol/L 03/20/17 03/20/17 03/20/17 Range/Units 18:00 17:01 16:02 WBC (4.5-11.0) 10^3/ul RBC (3.5-6.1) 10^6/uL Hgb (12.0-16.0) gm/dL Hct (36.0-48.0) % MCV (80.0-105.0) fL MCH (25.0-35.0) pg MCHC (31.0-37.0) g/dl RDW (11.5-14.5) % Plt Count (120.0-450.0) 10^3/uL MPV (7.0-11.0) fl Gran % (50.0-68.0) % Lymph % (Auto) (22.0-35.0) % [place] % (Auto) (1.0-6.0) % Eos % (Auto) (1.5-5.0) % Baso % (Auto) (0.0-3.0) % Gran # (1.4-6.5) Lymph # (1.2-3.4) [place] # (0.1-0.6) Eos # (0.0-0.7) Baso # (0.0-2.0) K/mm3 pCO2 (35-45) mm/Hg pO2 (30-55) mm/Hg HCO3 (21-28) mmol/L ABG pH (7.35-7.45) ABG Total CO2 (22-28) mmol.L ABG O2 Saturation (95-98) % ABG O2 Content (15-23) ML/dl ABG Base Excess (-2.0-3.0) mmol/L ABG Hemoglobin (11.7-17.4) g/dL ABG Carboxyhemoglobin (0.5-1.5) % POC ABG HHb (Measured) (0-5) % ABG Methemoglobin (0.0-3.0) % ABG O2 Capacity (16-24) mL/dl VBG pH (7.32-7.43) VBG pCO2 (40-60) VBG HCO3 (21-28) mmol/l VBG Total CO2 (22-28) mmol.L VBG O2 Sat (Calc) (40-65) % VBG Base Excess (0.0-2.0) mmol/L VBG Potassium (3.6-5.2) mmol/L Hgb O2 Saturation (95.0-98.0) % Sodium 154 H (132-148) mmol/L Chloride 121 H (98-107) mmol/L Glucose (65-105) mg/dl Lactate (0.7-2.1) mmol/L FiO2 % Potassium 4.2 (3.6-5.0) mmol/L Carbon Dioxide 17 L (21-33) mmol/L Anion Gap 20 (10-20) BUN 15 (7-21) mg/dL Creatinine 0.9 (0.5-1.4) mg/dL Est GFR ( Amer) > 60 Est GFR (Non-Af Amer) > 60 POC Glucose (mg/dL) 138 H 106 (65-110) mg/dL Random Glucose 132 H (70-110) mg/dL Hemoglobin A1c (4.2-6.5) % Lactic Acid (0.7-2.1) mmol/L Calcium 9.3 (8.4-10.5) mg/dL Phosphorus (2.5-4.5) mg/dL Magnesium (1.7-2.2) mg/dL Total Bilirubin (0.2-1.3) mg/dL AST (15-39) U/L ALT (7-56) U/L Alkaline Phosphatase (38-133) U/L Total Protein (5.8-8.3) g/dL Albumin (3.0-4.8) g/dL Globulin gm/dL Albumin/Globulin Ratio (1.1-1.8) Triglycerides (35-160) mg/dL Cholesterol (130-200) mg/dL LDL Cholesterol Direct (0-129) mg/dL HDL Cholesterol (29-60) mg/dL TSH 3rd Generation (0.46-4.68) mIU/mL Cortisol AM Sample (4.46-22.7) ug/dL Venous Blood Potassium (3.6-5.2) mmol/L 03/20/17 03/20/17 03/20/17 Range/Units 15:30 14:56 13:59 WBC (4.5-11.0) 10^3/ul RBC (3.5-6.1) 10^6/uL Hgb (12.0-16.0) gm/dL Hct (36.0-48.0) % MCV (80.0-105.0) fL MCH (25.0-35.0) pg MCHC (31.0-37.0) g/dl RDW (11.5-14.5) % Plt Count (120.0-450.0) 10^3/uL MPV (7.0-11.0) fl Gran % (50.0-68.0) % Lymph % (Auto) (22.0-35.0) % [place] % (Auto) (1.0-6.0) % Eos % (Auto) (1.5-5.0) % Baso % (Auto) (0.0-3.0) % Gran # (1.4-6.5) Lymph # (1.2-3.4) [place] # (0.1-0.6) Eos # (0.0-0.7) Baso # (0.0-2.0) K/mm3 pCO2 (35-45) mm/Hg pO2 (30-55) mm/Hg HCO3 (21-28) mmol/L ABG pH (7.35-7.45) ABG Total CO2 (22-28) mmol.L ABG O2 Saturation (95-98) % ABG O2 Content (15-23) ML/dl ABG Base Excess (-2.0-3.0) mmol/L ABG Hemoglobin (11.7-17.4) g/dL ABG Carboxyhemoglobin (0.5-1.5) % POC ABG HHb (Measured) (0-5) % ABG Methemoglobin (0.0-3.0) % ABG O2 Capacity (16-24) mL/dl VBG pH (7.32-7.43) VBG pCO2 (40-60) VBG HCO3 (21-28) mmol/l VBG Total CO2 (22-28) mmol.L VBG O2 Sat (Calc) (40-65) % VBG Base Excess (0.0-2.0) mmol/L VBG Potassium (3.6-5.2) mmol/L Hgb O2 Saturation (95.0-98.0) % Sodium 155 H (132-148) mmol/L Chloride 122 H (98-107) mmol/L Glucose (65-105) mg/dl Lactate (0.7-2.1) mmol/L FiO2 % Potassium 4.1 (3.6-5.0) mmol/L Carbon Dioxide 20 L (21-33) mmol/L Anion Gap 17 (10-20) BUN 16 (7-21) mg/dL Creatinine 0.9 (0.5-1.4) mg/dL Est GFR ( Amer) > 60 Est GFR (Non-Af Amer) > 60 POC Glucose (mg/dL) 104 147 H (65-110) mg/dL Random Glucose 88 (70-110) mg/dL Hemoglobin A1c (4.2-6.5) % Lactic Acid (0.7-2.1) mmol/L Calcium 9.2 (8.4-10.5) mg/dL Phosphorus (2.5-4.5) mg/dL Magnesium (1.7-2.2) mg/dL Total Bilirubin (0.2-1.3) mg/dL AST (15-39) U/L ALT (7-56) U/L Alkaline Phosphatase (38-133) U/L Total Protein (5.8-8.3) g/dL Albumin (3.0-4.8) g/dL Globulin gm/dL Albumin/Globulin Ratio (1.1-1.8) Triglycerides (35-160) mg/dL Cholesterol (130-200) mg/dL LDL Cholesterol Direct (0-129) mg/dL HDL Cholesterol (29-60) mg/dL TSH 3rd Generation (0.46-4.68) mIU/mL Cortisol AM Sample (4.46-22.7) ug/dL Venous Blood Potassium (3.6-5.2) mmol/L 03/20/17 03/20/17 03/20/17 Range/Units 13:11 12:00 11:11 WBC (4.5-11.0) 10^3/ul RBC (3.5-6.1) 10^6/uL Hgb (12.0-16.0) gm/dL Hct (36.0-48.0) % MCV (80.0-105.0) fL MCH (25.0-35.0) pg MCHC (31.0-37.0) g/dl RDW (11.5-14.5) % Plt Count (120.0-450.0) 10^3/uL MPV (7.0-11.0) fl Gran % (50.0-68.0) % Lymph % (Auto) (22.0-35.0) % [place] % (Auto) (1.0-6.0) % Eos % (Auto) (1.5-5.0) % Baso % (Auto) (0.0-3.0) % Gran # (1.4-6.5) Lymph # (1.2-3.4) [place] # (0.1-0.6) Eos # (0.0-0.7) Baso # (0.0-2.0) K/mm3 pCO2 (35-45) mm/Hg pO2 49 (30-55) mm/Hg HCO3 (21-28) mmol/L ABG pH (7.35-7.45) ABG Total CO2 (22-28) mmol.L ABG O2 Saturation (95-98) % ABG O2 Content (15-23) ML/dl ABG Base Excess (-2.0-3.0) mmol/L ABG Hemoglobin (11.7-17.4) g/dL ABG Carboxyhemoglobin (0.5-1.5) % POC ABG HHb (Measured) (0-5) % ABG Methemoglobin (0.0-3.0) % ABG O2 Capacity (16-24) mL/dl VBG pH 7.19 L* (7.32-7.43) VBG pCO2 37.0 L (40-60) VBG HCO3 14.1 L (21-28) mmol/l VBG Total CO2 15.2 L (22-28) mmol.L VBG O2 Sat (Calc) 87.1 H (40-65) % VBG Base Excess -13.3 L (0.0-2.0) mmol/L VBG Potassium 4.0 (3.6-5.2) mmol/L Hgb O2 Saturation (95.0-98.0) % Sodium 153.0 H (132-148) mmol/L Chloride 127.0 H (98-107) mmol/L Glucose 313 H (65-105) mg/dl Lactate 1.6 (0.7-2.1) mmol/L FiO2 21.0 % Potassium (3.6-5.0) mmol/L Carbon Dioxide (21-33) mmol/L Anion Gap (10-20) BUN (7-21) mg/dL Creatinine (0.5-1.4) mg/dL Est GFR ( Amer) Est GFR (Non-Af Amer) POC Glucose (mg/dL) 205 H 327 H (65-110) mg/dL Random Glucose (70-110) mg/dL Hemoglobin A1c (4.2-6.5) % Lactic Acid (0.7-2.1) mmol/L Calcium (8.4-10.5) mg/dL Phosphorus (2.5-4.5) mg/dL Magnesium (1.7-2.2) mg/dL Total Bilirubin (0.2-1.3) mg/dL AST (15-39) U/L ALT (7-56) U/L Alkaline Phosphatase (38-133) U/L Total Protein (5.8-8.3) g/dL Albumin (3.0-4.8) g/dL Globulin gm/dL Albumin/Globulin Ratio (1.1-1.8) Triglycerides (35-160) mg/dL Cholesterol (130-200) mg/dL LDL Cholesterol Direct (0-129) mg/dL HDL Cholesterol (29-60) mg/dL TSH 3rd Generation (0.46-4.68) mIU/mL Cortisol AM Sample (4.46-22.7) ug/dL Venous Blood Potassium 4.0 (3.6-5.2) mmol/L 03/20/17 03/20/17 03/20/17 Range/Units 11:11 11:11 11:11 WBC 16.1 H (4.5-11.0) 10^3/ul RBC 3.21 L (3.5-6.1) 10^6/uL Hgb 8.6 L (12.0-16.0) gm/dL Hct 27.3 L (36.0-48.0) % MCV 85.0 (80.0-105.0) fL MCH 26.8 (25.0-35.0) pg MCHC 31.5 (31.0-37.0) g/dl RDW 17.2 H (11.5-14.5) % Plt Count 367 (120.0-450.0) 10^3/uL MPV 8.2 (7.0-11.0) fl Gran % 77.9 H (50.0-68.0) % Lymph % (Auto) 15.1 L (22.0-35.0) % [place] % (Auto) 6.9 H (1.0-6.0) % Eos % (Auto) 0.0 L (1.5-5.0) % Baso % (Auto) 0.1 (0.0-3.0) % Gran # 12.55 H (1.4-6.5) Lymph # 2.4 (1.2-3.4) [place] # 1.1 H (0.1-0.6) Eos # 0.0 (0.0-0.7) Baso # 0.01 (0.0-2.0) K/mm3 pCO2 (35-45) mm/Hg pO2 (30-55) mm/Hg HCO3 (21-28) mmol/L ABG pH (7.35-7.45) ABG Total CO2 (22-28) mmol.L ABG O2 Saturation (95-98) % ABG O2 Content (15-23) ML/dl ABG Base Excess (-2.0-3.0) mmol/L ABG Hemoglobin (11.7-17.4) g/dL ABG Carboxyhemoglobin (0.5-1.5) % POC ABG HHb (Measured) (0-5) % ABG Methemoglobin (0.0-3.0) % ABG O2 Capacity (16-24) mL/dl VBG pH (7.32-7.43) VBG pCO2 (40-60) VBG HCO3 (21-28) mmol/l VBG Total CO2 (22-28) mmol.L VBG O2 Sat (Calc) (40-65) % VBG Base Excess (0.0-2.0) mmol/L VBG Potassium (3.6-5.2) mmol/L Hgb O2 Saturation (95.0-98.0) % Sodium (132-148) mmol/L Chloride (98-107) mmol/L Glucose (65-105) mg/dl Lactate (0.7-2.1) mmol/L FiO2 % Potassium (3.6-5.0) mmol/L Carbon Dioxide (21-33) mmol/L Anion Gap (10-20) BUN (7-21) mg/dL Creatinine (0.5-1.4) mg/dL Est GFR ( Amer) Est GFR (Non-Af Amer) POC Glucose (mg/dL) (65-110) mg/dL Random Glucose (70-110) mg/dL Hemoglobin A1c 10.8 H (4.2-6.5) % Lactic Acid (0.7-2.1) mmol/L Calcium (8.4-10.5) mg/dL Phosphorus (2.5-4.5) mg/dL Magnesium (1.7-2.2) mg/dL Total Bilirubin (0.2-1.3) mg/dL AST (15-39) U/L ALT (7-56) U/L Alkaline Phosphatase (38-133) U/L Total Protein (5.8-8.3) g/dL Albumin (3.0-4.8) g/dL Globulin gm/dL Albumin/Globulin Ratio (1.1-1.8) Triglycerides (35-160) mg/dL Cholesterol (130-200) mg/dL LDL Cholesterol Direct (0-129) mg/dL HDL Cholesterol (29-60) mg/dL TSH 3rd Generation 0.38 L (0.46-4.68) mIU/mL Cortisol AM Sample (4.46-22.7) ug/dL Venous Blood Potassium (3.6-5.2) mmol/L 03/20/17 03/20/17 03/20/17 Range/Units 11:11 11:06 10:35 WBC (4.5-11.0) 10^3/ul RBC (3.5-6.1) 10^6/uL Hgb (12.0-16.0) gm/dL Hct (36.0-48.0) % MCV (80.0-105.0) fL MCH (25.0-35.0) pg MCHC (31.0-37.0) g/dl RDW (11.5-14.5) % Plt Count (120.0-450.0) 10^3/uL MPV (7.0-11.0) fl Gran % (50.0-68.0) % Lymph % (Auto) (22.0-35.0) % [place] % (Auto) (1.0-6.0) % Eos % (Auto) (1.5-5.0) % Baso % (Auto) (0.0-3.0) % Gran # (1.4-6.5) Lymph # (1.2-3.4) [place] # (0.1-0.6) Eos # (0.0-0.7) Baso # (0.0-2.0) K/mm3 pCO2 (35-45) mm/Hg pO2 (30-55) mm/Hg HCO3 (21-28) mmol/L ABG pH (7.35-7.45) ABG Total CO2 (22-28) mmol.L ABG O2 Saturation (95-98) % ABG O2 Content (15-23) ML/dl ABG Base Excess (-2.0-3.0) mmol/L ABG Hemoglobin (11.7-17.4) g/dL ABG Carboxyhemoglobin (0.5-1.5) % POC ABG HHb (Measured) (0-5) % ABG Methemoglobin (0.0-3.0) % ABG O2 Capacity (16-24) mL/dl VBG pH (7.32-7.43) VBG pCO2 (40-60) VBG HCO3 (21-28) mmol/l VBG Total CO2 (22-28) mmol.L VBG O2 Sat (Calc) (40-65) % VBG Base Excess (0.0-2.0) mmol/L VBG Potassium (3.6-5.2) mmol/L Hgb O2 Saturation (95.0-98.0) % Sodium 153 H (132-148) mmol/L Chloride 120 H (98-107) mmol/L Glucose (65-105) mg/dl Lactate (0.7-2.1) mmol/L FiO2 % Potassium 4.0 (3.6-5.0) mmol/L Carbon Dioxide 15 L (21-33) mmol/L Anion Gap 22 H (10-20) BUN 17 (7-21) mg/dL Creatinine 0.9 (0.5-1.4) mg/dL Est GFR ( Amer) > 60 Est GFR (Non-Af Amer) > 60 POC Glucose (mg/dL) 374 H 463 H* (65-110) mg/dL Random Glucose 294 H (70-110) mg/dL Hemoglobin A1c (4.2-6.5) % Lactic Acid (0.7-2.1) mmol/L Calcium 8.5 (8.4-10.5) mg/dL Phosphorus 2.7 (2.5-4.5) mg/dL Magnesium 2.2 (1.7-2.2) mg/dL Total Bilirubin 0.5 (0.2-1.3) mg/dL AST 16 (15-39) U/L ALT 35 (7-56) U/L Alkaline Phosphatase 62 (38-133) U/L Total Protein 6.5 (5.8-8.3) g/dL Albumin 3.3 (3.0-4.8) g/dL Globulin 3.2 gm/dL Albumin/Globulin Ratio 1.0 L (1.1-1.8) Triglycerides 125 (35-160) mg/dL Cholesterol 198 (130-200) mg/dL LDL Cholesterol Direct 70 (0-129) mg/dL HDL Cholesterol 88 H (29-60) mg/dL TSH 3rd Generation (0.46-4.68) mIU/mL Cortisol AM Sample 26.3 H (4.46-22.7) ug/dL Venous Blood Potassium (3.6-5.2) mmol/L 03/20/17 03/19/17 03/19/17 Range/Units 09:01 15:14 13:39 WBC (4.5-11.0) 10^3/ul RBC (3.5-6.1) 10^6/uL Hgb (12.0-16.0) gm/dL Hct (36.0-48.0) % MCV (80.0-105.0) fL MCH (25.0-35.0) pg MCHC (31.0-37.0) g/dl RDW (11.5-14.5) % Plt Count (120.0-450.0) 10^3/uL MPV (7.0-11.0) fl Gran % (50.0-68.0) % Lymph % (Auto) (22.0-35.0) % [place] % (Auto) (1.0-6.0) % Eos % (Auto) (1.5-5.0) % Baso % (Auto) (0.0-3.0) % Gran # (1.4-6.5) Lymph # (1.2-3.4) [place] # (0.1-0.6) Eos # (0.0-0.7) Baso # (0.0-2.0) K/mm3 pCO2 (35-45) mm/Hg pO2 (30-55) mm/Hg HCO3 (21-28) mmol/L ABG pH (7.35-7.45) ABG Total CO2 (22-28) mmol.L ABG O2 Saturation (95-98) % ABG O2 Content (15-23) ML/dl ABG Base Excess (-2.0-3.0) mmol/L ABG Hemoglobin (11.7-17.4) g/dL ABG Carboxyhemoglobin (0.5-1.5) % POC ABG HHb (Measured) (0-5) % ABG Methemoglobin (0.0-3.0) % ABG O2 Capacity (16-24) mL/dl VBG pH (7.32-7.43) VBG pCO2 (40-60) VBG HCO3 (21-28) mmol/l VBG Total CO2 (22-28) mmol.L VBG O2 Sat (Calc) (40-65) % VBG Base Excess (0.0-2.0) mmol/L VBG Potassium (3.6-5.2) mmol/L Hgb O2 Saturation (95.0-98.0) % Sodium (132-148) mmol/L Chloride (98-107) mmol/L Glucose (65-105) mg/dl Lactate (0.7-2.1) mmol/L FiO2 % Potassium (3.6-5.0) mmol/L Carbon Dioxide (21-33) mmol/L Anion Gap (10-20) BUN (7-21) mg/dL Creatinine (0.5-1.4) mg/dL Est GFR ( Amer) Est GFR (Non-Af Amer) POC Glucose (mg/dL) > 500 H* 333 H 478 H* (65-110) mg/dL Random Glucose (70-110) mg/dL Hemoglobin A1c (4.2-6.5) % Lactic Acid (0.7-2.1) mmol/L Calcium (8.4-10.5) mg/dL Phosphorus (2.5-4.5) mg/dL Magnesium (1.7-2.2) mg/dL Total Bilirubin (0.2-1.3) mg/dL AST (15-39) U/L ALT (7-56) U/L Alkaline Phosphatase (38-133) U/L Total Protein (5.8-8.3) g/dL Albumin (3.0-4.8) g/dL Globulin gm/dL Albumin/Globulin Ratio (1.1-1.8) Triglycerides (35-160) mg/dL Cholesterol (130-200) mg/dL LDL Cholesterol Direct (0-129) mg/dL HDL Cholesterol (29-60) mg/dL TSH 3rd Generation (0.46-4.68) mIU/mL Cortisol AM Sample (4.46-22.7) ug/dL Venous Blood Potassium (3.6-5.2) mmol/L 03/19/17 03/19/17 Range/Units 12:16 11:34 WBC (4.5-11.0) 10^3/ul RBC (3.5-6.1) 10^6/uL Hgb (12.0-16.0) gm/dL Hct (36.0-48.0) % MCV (80.0-105.0) fL MCH (25.0-35.0) pg MCHC (31.0-37.0) g/dl RDW (11.5-14.5) % Plt Count (120.0-450.0) 10^3/uL MPV (7.0-11.0) fl Gran % (50.0-68.0) % Lymph % (Auto) (22.0-35.0) % [place] % (Auto) (1.0-6.0) % Eos % (Auto) (1.5-5.0) % Baso % (Auto) (0.0-3.0) % Gran # (1.4-6.5) Lymph # (1.2-3.4) [place] # (0.1-0.6) Eos # (0.0-0.7) Baso # (0.0-2.0) K/mm3 pCO2 (35-45) mm/Hg pO2 (30-55) mm/Hg HCO3 (21-28) mmol/L ABG pH (7.35-7.45) ABG Total CO2 (22-28) mmol.L ABG O2 Saturation (95-98) % ABG O2 Content (15-23) ML/dl ABG Base Excess (-2.0-3.0) mmol/L ABG Hemoglobin (11.7-17.4) g/dL ABG Carboxyhemoglobin (0.5-1.5) % POC ABG HHb (Measured) (0-5) % ABG Methemoglobin (0.0-3.0) % ABG O2 Capacity (16-24) mL/dl VBG pH (7.32-7.43) VBG pCO2 (40-60) VBG HCO3 (21-28) mmol/l VBG Total CO2 (22-28) mmol.L VBG O2 Sat (Calc) (40-65) % VBG Base Excess (0.0-2.0) mmol/L VBG Potassium (3.6-5.2) mmol/L Hgb O2 Saturation (95.0-98.0) % Sodium (132-148) mmol/L Chloride (98-107) mmol/L Glucose (65-105) mg/dl Lactate (0.7-2.1) mmol/L FiO2 % Potassium (3.6-5.0) mmol/L Carbon Dioxide (21-33) mmol/L Anion Gap (10-20) BUN (7-21) mg/dL Creatinine (0.5-1.4) mg/dL Est GFR ( Amer) Est GFR (Non-Af Amer) POC Glucose (mg/dL) 458 H* > 500 H* (65-110) mg/dL Random Glucose (70-110) mg/dL Hemoglobin A1c (4.2-6.5) % Lactic Acid (0.7-2.1) mmol/L Calcium (8.4-10.5) mg/dL Phosphorus (2.5-4.5) mg/dL Magnesium (1.7-2.2) mg/dL Total Bilirubin (0.2-1.3) mg/dL AST (15-39) U/L ALT (7-56) U/L Alkaline Phosphatase (38-133) U/L Total Protein (5.8-8.3) g/dL Albumin (3.0-4.8) g/dL Globulin gm/dL Albumin/Globulin Ratio (1.1-1.8) Triglycerides (35-160) mg/dL Cholesterol (130-200) mg/dL LDL Cholesterol Direct (0-129) mg/dL HDL Cholesterol (29-60) mg/dL TSH 3rd Generation (0.46-4.68) mIU/mL Cortisol AM Sample (4.46-22.7) ug/dL Venous Blood Potassium (3.6-5.2) mmol/L Laboratory Results - last 24 hr 03/19/17 03/19/17 03/19/17 11:34 12:16 13:39 WBC RBC Hgb Hct MCV MCH MCHC RDW Plt Count MPV Gran % Lymph % (Auto) [place] % (Auto) Eos % (Auto) Baso % (Auto) Gran # Lymph # [place] # Eos # Baso # pCO2 pO2 HCO3 ABG pH ABG Total CO2 ABG O2 Saturation ABG O2 Content ABG Base Excess ABG Hemoglobin ABG Carboxyhemoglobin POC ABG HHb (Measured) ABG Methemoglobin ABG O2 Capacity VBG pH VBG pCO2 VBG HCO3 VBG Total CO2 VBG O2 Sat (Calc) VBG Base Excess VBG Potassium Hgb O2 Saturation Sodium Chloride Glucose Lactate FiO2 Potassium Carbon Dioxide Anion Gap BUN Creatinine Est GFR ( Amer) Est GFR (Non-Af Amer) POC Glucose (mg/dL) > 500 H* 458 H* 478 H* Random Glucose Hemoglobin A1c Lactic Acid Calcium Phosphorus Magnesium Total Bilirubin AST ALT Alkaline Phosphatase Total Protein Albumin Globulin Albumin/Globulin Ratio Triglycerides Cholesterol LDL Cholesterol Direct HDL Cholesterol TSH 3rd Generation Cortisol AM Sample Venous Blood Potassium 03/19/17 03/20/17 03/20/17 15:14 09:01 10:35 WBC RBC Hgb Hct MCV MCH MCHC RDW Plt Count MPV Gran % Lymph % (Auto) [place] % (Auto) Eos % (Auto) Baso % (Auto) Gran # Lymph # [place] # Eos # Baso # pCO2 pO2 HCO3 ABG pH ABG Total CO2 ABG O2 Saturation ABG O2 Content ABG Base Excess ABG Hemoglobin ABG Carboxyhemoglobin POC ABG HHb (Measured) ABG Methemoglobin ABG O2 Capacity VBG pH VBG pCO2 VBG HCO3 VBG Total CO2 VBG O2 Sat (Calc) VBG Base Excess VBG Potassium Hgb O2 Saturation Sodium Chloride Glucose Lactate FiO2 Potassium Carbon Dioxide Anion Gap BUN Creatinine Est GFR ( Amer) Est GFR (Non-Af Amer) POC Glucose (mg/dL) 333 H > 500 H* 463 H* Random Glucose Hemoglobin A1c Lactic Acid Calcium Phosphorus Magnesium Total Bilirubin AST ALT Alkaline Phosphatase Total Protein Albumin Globulin Albumin/Globulin Ratio Triglycerides Cholesterol LDL Cholesterol Direct HDL Cholesterol TSH 3rd Generation Cortisol AM Sample Venous Blood Potassium 03/20/17 03/20/17 03/20/17 11:06 11:11 11:11 WBC RBC Hgb Hct MCV MCH MCHC RDW Plt Count MPV Gran % Lymph % (Auto) [place] % (Auto) Eos % (Auto) Baso % (Auto) Gran # Lymph # [place] # Eos # Baso # pCO2 pO2 HCO3 ABG pH ABG Total CO2 ABG O2 Saturation ABG O2 Content ABG Base Excess ABG Hemoglobin ABG Carboxyhemoglobin POC ABG HHb (Measured) ABG Methemoglobin ABG O2 Capacity VBG pH VBG pCO2 VBG HCO3 VBG Total CO2 VBG O2 Sat (Calc) VBG Base Excess VBG Potassium Hgb O2 Saturation Sodium 153 H Chloride 120 H Glucose Lactate FiO2 Potassium 4.0 Carbon Dioxide 15 L Anion Gap 22 H BUN 17 Creatinine 0.9 Est GFR ( Amer) > 60 Est GFR (Non-Af Amer) > 60 POC Glucose (mg/dL) 374 H Random Glucose 294 H Hemoglobin A1c 10.8 H Lactic Acid Calcium 8.5 Phosphorus 2.7 Magnesium 2.2 Total Bilirubin 0.5 AST 16 ALT 35 Alkaline Phosphatase 62 Total Protein 6.5 Albumin 3.3 Globulin 3.2 Albumin/Globulin Ratio 1.0 L Triglycerides 125 Cholesterol 198 LDL Cholesterol Direct 70 HDL Cholesterol 88 H TSH 3rd Generation Cortisol AM Sample 26.3 H Venous Blood Potassium 03/20/17 03/20/17 03/20/17 11:11 11:11 11:11 WBC 16.1 H RBC 3.21 L Hgb 8.6 L Hct 27.3 L MCV 85.0 MCH 26.8 MCHC 31.5 RDW 17.2 H Plt Count 367 MPV 8.2 Gran % 77.9 H Lymph % (Auto) 15.1 L [place] % (Auto) 6.9 H Eos % (Auto) 0.0 L Baso % (Auto) 0.1 Gran # 12.55 H Lymph # 2.4 [place] # 1.1 H Eos # 0.0 Baso # 0.01 pCO2 pO2 49 HCO3 ABG pH ABG Total CO2 ABG O2 Saturation ABG O2 Content ABG Base Excess ABG Hemoglobin ABG Carboxyhemoglobin POC ABG HHb (Measured) ABG Methemoglobin ABG O2 Capacity VBG pH 7.19 L* VBG pCO2 37.0 L VBG HCO3 14.1 L VBG Total CO2 15.2 L VBG O2 Sat (Calc) 87.1 H VBG Base Excess -13.3 L VBG Potassium 4.0 Hgb O2 Saturation Sodium 153.0 H Chloride 127.0 H Glucose 313 H Lactate 1.6 FiO2 21.0 Potassium Carbon Dioxide Anion Gap BUN Creatinine Est GFR ( Amer) Est GFR (Non-Af Amer) POC Glucose (mg/dL) Random Glucose Hemoglobin A1c Lactic Acid Calcium Phosphorus Magnesium Total Bilirubin AST ALT Alkaline Phosphatase Total Protein Albumin Globulin Albumin/Globulin Ratio Triglycerides Cholesterol LDL Cholesterol Direct HDL Cholesterol TSH 3rd Generation 0.38 L Cortisol AM Sample Venous Blood Potassium 4.0 03/20/17 03/20/17 03/20/17 12:00 13:11 13:59 WBC RBC Hgb Hct MCV MCH MCHC RDW Plt Count MPV Gran % Lymph % (Auto) [place] % (Auto) Eos % (Auto) Baso % (Auto) Gran # Lymph # [place] # Eos # Baso # pCO2 pO2 HCO3 ABG pH ABG Total CO2 ABG O2 Saturation ABG O2 Content ABG Base Excess ABG Hemoglobin ABG Carboxyhemoglobin POC ABG HHb (Measured) ABG Methemoglobin ABG O2 Capacity VBG pH VBG pCO2 VBG HCO3 VBG Total CO2 VBG O2 Sat (Calc) VBG Base Excess VBG Potassium Hgb O2 Saturation Sodium Chloride Glucose Lactate FiO2 Potassium Carbon Dioxide Anion Gap BUN Creatinine Est GFR ( Amer) Est GFR (Non-Af Amer) POC Glucose (mg/dL) 327 H 205 H 147 H Random Glucose Hemoglobin A1c Lactic Acid Calcium Phosphorus Magnesium Total Bilirubin AST ALT Alkaline Phosphatase Total Protein Albumin Globulin Albumin/Globulin Ratio Triglycerides Cholesterol LDL Cholesterol Direct HDL Cholesterol TSH 3rd Generation Cortisol AM Sample Venous Blood Potassium 03/20/17 03/20/17 03/20/17 14:56 15:30 16:02 WBC RBC Hgb Hct MCV MCH MCHC RDW Plt Count MPV Gran % Lymph % (Auto) [place] % (Auto) Eos % (Auto) Baso % (Auto) Gran # Lymph # [place] # Eos # Baso # pCO2 pO2 HCO3 ABG pH ABG Total CO2 ABG O2 Saturation ABG O2 Content ABG Base Excess ABG Hemoglobin ABG Carboxyhemoglobin POC ABG HHb (Measured) ABG Methemoglobin ABG O2 Capacity VBG pH VBG pCO2 VBG HCO3 VBG Total CO2 VBG O2 Sat (Calc) VBG Base Excess VBG Potassium Hgb O2 Saturation Sodium 155 H Chloride 122 H Glucose Lactate FiO2 Potassium 4.1 Carbon Dioxide 20 L Anion Gap 17 BUN 16 Creatinine 0.9 Est GFR ( Amer) > 60 Est GFR (Non-Af Amer) > 60 POC Glucose (mg/dL) 104 106 Random Glucose 88 Hemoglobin A1c Lactic Acid Calcium 9.2 Phosphorus Magnesium Total Bilirubin AST ALT Alkaline Phosphatase Total Protein Albumin Globulin Albumin/Globulin Ratio Triglycerides Cholesterol LDL Cholesterol Direct HDL Cholesterol TSH 3rd Generation Cortisol AM Sample Venous Blood Potassium 03/20/17 03/20/17 03/20/17 17:01 18:00 18:19 WBC RBC Hgb Hct MCV MCH MCHC RDW Plt Count MPV Gran % Lymph % (Auto) [place] % (Auto) Eos % (Auto) Baso % (Auto) Gran # Lymph # [place] # Eos # Baso # pCO2 pO2 HCO3 ABG pH ABG Total CO2 ABG O2 Saturation ABG O2 Content ABG Base Excess ABG Hemoglobin ABG Carboxyhemoglobin POC ABG HHb (Measured) ABG Methemoglobin ABG O2 Capacity VBG pH VBG pCO2 VBG HCO3 VBG Total CO2 VBG O2 Sat (Calc) VBG Base Excess VBG Potassium Hgb O2 Saturation Sodium 154 H Chloride 121 H Glucose Lactate FiO2 Potassium 4.2 Carbon Dioxide 17 L Anion Gap 20 BUN 15 Creatinine 0.9 Est GFR ( Amer) > 60 Est GFR (Non-Af Amer) > 60 POC Glucose (mg/dL) 138 H 151 H Random Glucose 132 H Hemoglobin A1c Lactic Acid Calcium 9.3 Phosphorus Magnesium Total Bilirubin AST ALT Alkaline Phosphatase Total Protein Albumin Globulin Albumin/Globulin Ratio Triglycerides Cholesterol LDL Cholesterol Direct HDL Cholesterol TSH 3rd Generation Cortisol AM Sample Venous Blood Potassium 03/20/17 03/20/17 03/20/17 18:20 19:25 20:27 WBC RBC Hgb Hct MCV MCH MCHC RDW Plt Count MPV Gran % Lymph % (Auto) [place] % (Auto) Eos % (Auto) Baso % (Auto) Gran # Lymph # [place] # Eos # Baso # pCO2 pO2 HCO3 ABG pH ABG Total CO2 ABG O2 Saturation ABG O2 Content ABG Base Excess ABG Hemoglobin ABG Carboxyhemoglobin POC ABG HHb (Measured) ABG Methemoglobin ABG O2 Capacity VBG pH VBG pCO2 VBG HCO3 VBG Total CO2 VBG O2 Sat (Calc) VBG Base Excess VBG Potassium Hgb O2 Saturation Sodium Chloride Glucose Lactate FiO2 Potassium Carbon Dioxide Anion Gap BUN Creatinine Est GFR ( Amer) Est GFR (Non-Af Amer) POC Glucose (mg/dL) 156 H 120 H Random Glucose Hemoglobin A1c Lactic Acid 1.1 Calcium Phosphorus Magnesium Total Bilirubin AST ALT Alkaline Phosphatase Total Protein Albumin Globulin Albumin/Globulin Ratio Triglycerides Cholesterol LDL Cholesterol Direct HDL Cholesterol TSH 3rd Generation Cortisol AM Sample Venous Blood Potassium 03/20/17 03/21/17 03/21/17 21:09 00:08 05:30 WBC 18.1 H RBC 3.48 L Hgb 9.3 L Hct 29.8 L MCV 85.6 MCH 26.7 MCHC 31.2 RDW 17.8 H Plt Count 396 MPV 8.6 Gran % Lymph % (Auto) [place] % (Auto) Eos % (Auto) Baso % (Auto) Gran # Lymph # [place] # Eos # Baso # pCO2 pO2 HCO3 ABG pH ABG Total CO2 ABG O2 Saturation ABG O2 Content ABG Base Excess ABG Hemoglobin ABG Carboxyhemoglobin POC ABG HHb (Measured) ABG Methemoglobin ABG O2 Capacity VBG pH VBG pCO2 VBG HCO3 VBG Total CO2 VBG O2 Sat (Calc) VBG Base Excess VBG Potassium Hgb O2 Saturation Sodium Chloride Glucose Lactate FiO2 Potassium Carbon Dioxide Anion Gap BUN Creatinine Est GFR ( Amer) Est GFR (Non-Af Amer) POC Glucose (mg/dL) 111 H 238 H Random Glucose Hemoglobin A1c Lactic Acid Calcium Phosphorus Magnesium Total Bilirubin AST ALT Alkaline Phosphatase Total Protein Albumin Globulin Albumin/Globulin Ratio Triglycerides Cholesterol LDL Cholesterol Direct HDL Cholesterol TSH 3rd Generation Cortisol AM Sample Venous Blood Potassium 03/21/17 03/21/17 05:30 09:46 WBC RBC Hgb Hct MCV MCH MCHC RDW Plt Count MPV Gran % Lymph % (Auto) [place] % (Auto) Eos % (Auto) Baso % (Auto) Gran # Lymph # [place] # Eos # Baso # pCO2 35 pO2 164.0 H HCO3 19.3 L ABG pH 7.35 ABG Total CO2 20.4 L ABG O2 Saturation 98.9 H ABG O2 Content 12.7 L ABG Base Excess -5.7 L ABG Hemoglobin 9.0 L ABG Carboxyhemoglobin 0.9 POC ABG HHb (Measured) 1.1 ABG Methemoglobin 0.4 ABG O2 Capacity 12.8 L VBG pH VBG pCO2 VBG HCO3 VBG Total CO2 VBG O2 Sat (Calc) VBG Base Excess VBG Potassium Hgb O2 Saturation 97.6 Sodium 150 H Chloride 117 H Glucose Lactate FiO2 36.0 Potassium 4.0 Carbon Dioxide 16 L Anion Gap 21 H BUN 13 Creatinine 0.9 Est GFR ( Amer) > 60 Est GFR (Non-Af Amer) > 60 POC Glucose (mg/dL) Random Glucose 334 H* D Hemoglobin A1c Lactic Acid Calcium 9.4 Phosphorus Magnesium Total Bilirubin AST ALT Alkaline Phosphatase Total Protein Albumin Globulin Albumin/Globulin Ratio Triglycerides Cholesterol LDL Cholesterol Direct HDL Cholesterol TSH 3rd Generation Cortisol AM Sample Venous Blood Potassium Fingerstick Blood Sugar Results: 238 Assessment/Plan - Assessment and Plan (Free Text) Plan: 42 y/o F with PMH HTN, CAD, and DM presents with DKA. Pt continues to have anion gap and will continue on the insulin drip. Pt has had no IV access issues today. Pt will be follow with serial BMP's to monitor anion gaps and accuchecks every hour. Will continue to monitor closely. Neuro: AAOx3 Monitor for worsening mental status Cardio: Hemodynamically stable Maintain MAP >65 Pulm: NC @ 3L Maintain o2 sat >90% Continue to monitor respiratory status GI: NPO Protonix CT abdomen/pelvis ordered Dr. Gomez following Nephro: Replenish electrolytes as needed Maintain euvolemia Continue NS @ 150 cc/hr Heme/ID: Afebrile, leukocytosis persistent Cultures negative at this time Maintain normothermia Endo: Continue insulin drip until gap closes Switch fluids from LR to D5 1/2 NS when glucose is below 250. Monitor glucose levels every hour Maintain euglycemia PPX: Protonix Heparin Seen, reviewed, and discussed with attending Melina PGY-1 <Nya GARCIA,Katelyn H - Last Filed: 03/21/17 13:57> CCU Objective - Vital Signs / Intake & Output Intake and Output (Last 8hrs): Intake & Output 03/20/17 03/21/17 03/21/17 22:59 06:59 14:59 Intake Total 3700 1600 119.0 Output Total 800 700 Balance 2900 900 119.0 Intake: IV 3700 1600 119.0 Right Internal Jugular 3500 1600 Output: Urine 800 700 Urine, Voided 800 700 Other: Voiding Method Bedpan - Medications Active Medications: Active Medications Generic Name Dose Route Start Last Admin Trade Name Freq PRN Reason Stop Dose Admin Amlodipine Besylate 2.5 mg 03/20/17 10:00 03/21/17 09:15 Norvasc PO 2.5 mg DAILY MICHELLE Administration Heparin Sodium (Porcine) 5,000 units 03/20/17 22:00 03/21/17 09:16 Heparin SC 5,000 units Q12 MICHELLE Administration Protocol Meropenem 1g/NS 100mL IVPB 1 gm in 100 mls @ 100 mls/hr 03/19/17 22:00 09:16 Meropenem 1g/Ns 100ml Ivpb IVPB 03/27/17 22:01 100 mls/hr Q12 MICHELLE Administration Protocol Dextrose/Sodium Chloride 1,000 mls @ 125 mls/hr 03/20/17 14:15 03/21/17 12:31 Dextrose 5%/0.45% Ns 1000 Ml IV 125 mls/hr .Q8H MICHELLE Administration Insulin Human Lispro 0 units 03/20/17 11:30 03/21/17 12:06 Humalog High SC Not Given ACHS MICHELLE Protocol Metoprolol Tartrate 25 mg 03/19/17 18:00 03/21/17 09:15 Lopressor PO 25 mg BID MICHELLE Administration Morphine Sulfate 2 mg 03/19/17 16:17 03/21/17 12:30 Morphine IVP 2 mg Q4H PRN Administration Pain, severe (8-10) Ondansetron HCl 4 mg 03/19/17 10:38 Zofran Inj IM Q6H PRN Nausea/Vomiting Pantoprazole Sodium 40 mg 03/20/17 06:00 03/21/17 05:54 Protonix Inj IV 40 mg 0600 MICHELLE Administration Sucralfate 1 gm 03/19/17 18:00 03/21/17 09:16 Carafate Tab PO 1 gm BID MICHELLE Administration - Patient Studies Lab Studies: Microbiology Studies 03/19/17 17:55 Blood Culture - Preliminary Blood NO GROWTH AFTER 24 HOURS 03/19/17 17:45 Blood Culture - Preliminary Blood NO GROWTH AFTER 24 HOURS Lab Studies 05/02/17 05/02/17 05/02/17 Range/Units 11:15 09:46 05:30 WBC (4.5-11.0) 10^3/ul RBC (3.5-6.1) 10^6/uL Hgb (12.0-16.0) gm/dL Hct (36.0-48.0) % MCV (80.0-105.0) fL MCH (25.0-35.0) pg MCHC (31.0-37.0) g/dl RDW (11.5-14.5) % Plt Count (120.0-450.0) 10^3/uL MPV (7.0-11.0) fl pCO2 35 (35-45) mm/Hg pO2 164.0 H (80-100) mm/Hg HCO3 19.3 L (21-28) mmol/L ABG pH 7.35 (7.35-7.45) ABG Total CO2 20.4 L (22-28) mmol.L ABG O2 Saturation 98.9 H (95-98) % ABG O2 Content 12.7 L (15-23) ML/dl ABG Base Excess -5.7 L (-2.0-3.0) mmol/L ABG Hemoglobin 9.0 L (11.7-17.4) g/dL ABG Carboxyhemoglobin 0.9 (0.5-1.5) % POC ABG HHb (Measured) 1.1 (0-5) % ABG Methemoglobin 0.4 (0.0-3.0) % ABG O2 Capacity 12.8 L (16-24) mL/dl Hgb O2 Saturation 97.6 (95.0-98.0) % FiO2 36.0 % Sodium 148 150 H (132-148) mmol/L Potassium 3.4 L 4.0 (3.6-5.0) mmol/L Chloride 114 H 117 H (98-107) mmol/L Carbon Dioxide 25 16 L (21-33) mmol/L Anion Gap 12 21 H (10-20) BUN 12 13 (7-21) mg/dL Creatinine 0.9 0.9 (0.5-1.4) mg/dL Est GFR ( Amer) > 60 > 60 Est GFR (Non-Af Amer) > 60 > 60 POC Glucose (mg/dL) (65-110) mg/dL Random Glucose 90 334 H* D (70-110) mg/dL Hemoglobin A1c (4.2-6.5) % Lactic Acid (0.7-2.1) mmol/L Calcium 9.2 9.4 (8.4-10.5) mg/dL Cortisol AM Sample (4.46-22.7) ug/dL 03/21/17 03/21/17 03/20/17 Range/Units 05:30 00:08 21:09 WBC 18.1 H (4.5-11.0) 10^3/ul RBC 3.48 L (3.5-6.1) 10^6/uL Hgb 9.3 L (12.0-16.0) gm/dL Hct 29.8 L (36.0-48.0) % MCV 85.6 (80.0-105.0) fL MCH 26.7 (25.0-35.0) pg MCHC 31.2 (31.0-37.0) g/dl RDW 17.8 H (11.5-14.5) % Plt Count 396 (120.0-450.0) 10^3/uL MPV 8.6 (7.0-11.0) fl pCO2 (35-45) mm/Hg pO2 (80-100) mm/Hg HCO3 (21-28) mmol/L ABG pH (7.35-7.45) ABG Total CO2 (22-28) mmol.L ABG O2 Saturation (95-98) % ABG O2 Content (15-23) ML/dl ABG Base Excess (-2.0-3.0) mmol/L ABG Hemoglobin (11.7-17.4) g/dL ABG Carboxyhemoglobin (0.5-1.5) % POC ABG HHb (Measured) (0-5) % ABG Methemoglobin (0.0-3.0) % ABG O2 Capacity (16-24) mL/dl Hgb O2 Saturation (95.0-98.0) % FiO2 % Sodium (132-148) mmol/L Potassium (3.6-5.0) mmol/L Chloride (98-107) mmol/L Carbon Dioxide (21-33) mmol/L Anion Gap (10-20) BUN (7-21) mg/dL Creatinine (0.5-1.4) mg/dL Est GFR ( Amer) Est GFR (Non-Af Amer) POC Glucose (mg/dL) 238 H 111 H (65-110) mg/dL Random Glucose (70-110) mg/dL Hemoglobin A1c (4.2-6.5) % Lactic Acid (0.7-2.1) mmol/L Calcium (8.4-10.5) mg/dL Cortisol AM Sample (4.46-22.7) ug/dL 03/20/17 03/20/17 03/20/17 Range/Units 20:27 19:25 18:20 WBC (4.5-11.0) 10^3/ul RBC (3.5-6.1) 10^6/uL Hgb (12.0-16.0) gm/dL Hct (36.0-48.0) % MCV (80.0-105.0) fL MCH (25.0-35.0) pg MCHC (31.0-37.0) g/dl RDW (11.5-14.5) % Plt Count (120.0-450.0) 10^3/uL MPV (7.0-11.0) fl pCO2 (35-45) mm/Hg pO2 (80-100) mm/Hg HCO3 (21-28) mmol/L ABG pH (7.35-7.45) ABG Total CO2 (22-28) mmol.L ABG O2 Saturation (95-98) % ABG O2 Content (15-23) ML/dl ABG Base Excess (-2.0-3.0) mmol/L ABG Hemoglobin (11.7-17.4) g/dL ABG Carboxyhemoglobin (0.5-1.5) % POC ABG HHb (Measured) (0-5) % ABG Methemoglobin (0.0-3.0) % ABG O2 Capacity (16-24) mL/dl Hgb O2 Saturation (95.0-98.0) % FiO2 % Sodium (132-148) mmol/L Potassium (3.6-5.0) mmol/L Chloride (98-107) mmol/L Carbon Dioxide (21-33) mmol/L Anion Gap (10-20) BUN (7-21) mg/dL Creatinine (0.5-1.4) mg/dL Est GFR ( Amer) Est GFR (Non-Af Amer) POC Glucose (mg/dL) 120 H 156 H (65-110) mg/dL Random Glucose (70-110) mg/dL Hemoglobin A1c (4.2-6.5) % Lactic Acid 1.1 (0.7-2.1) mmol/L Calcium (8.4-10.5) mg/dL Cortisol AM Sample (4.46-22.7) ug/dL 03/20/17 03/20/17 03/20/17 Range/Units 18:19 18:00 17:01 WBC (4.5-11.0) 10^3/ul RBC (3.5-6.1) 10^6/uL Hgb (12.0-16.0) gm/dL Hct (36.0-48.0) % MCV (80.0-105.0) fL MCH (25.0-35.0) pg MCHC (31.0-37.0) g/dl RDW (11.5-14.5) % Plt Count (120.0-450.0) 10^3/uL MPV (7.0-11.0) fl pCO2 (35-45) mm/Hg pO2 (80-100) mm/Hg HCO3 (21-28) mmol/L ABG pH (7.35-7.45) ABG Total CO2 (22-28) mmol.L ABG O2 Saturation (95-98) % ABG O2 Content (15-23) ML/dl ABG Base Excess (-2.0-3.0) mmol/L ABG Hemoglobin (11.7-17.4) g/dL ABG Carboxyhemoglobin (0.5-1.5) % POC ABG HHb (Measured) (0-5) % ABG Methemoglobin (0.0-3.0) % ABG O2 Capacity (16-24) mL/dl Hgb O2 Saturation (95.0-98.0) % FiO2 % Sodium 154 H (132-148) mmol/L Potassium 4.2 (3.6-5.0) mmol/L Chloride 121 H (98-107) mmol/L Carbon Dioxide 17 L (21-33) mmol/L Anion Gap 20 (10-20) BUN 15 (7-21) mg/dL Creatinine 0.9 (0.5-1.4) mg/dL Est GFR ( Amer) > 60 Est GFR (Non-Af Amer) > 60 POC Glucose (mg/dL) 151 H 138 H (65-110) mg/dL Random Glucose 132 H (70-110) mg/dL Hemoglobin A1c (4.2-6.5) % Lactic Acid (0.7-2.1) mmol/L Calcium 9.3 (8.4-10.5) mg/dL Cortisol AM Sample (4.46-22.7) ug/dL 03/20/17 03/20/17 03/20/17 Range/Units 16:02 15:30 14:56 WBC (4.5-11.0) 10^3/ul RBC (3.5-6.1) 10^6/uL Hgb (12.0-16.0) gm/dL Hct (36.0-48.0) % MCV (80.0-105.0) fL MCH (25.0-35.0) pg MCHC (31.0-37.0) g/dl RDW (11.5-14.5) % Plt Count (120.0-450.0) 10^3/uL MPV (7.0-11.0) fl pCO2 (35-45) mm/Hg pO2 (80-100) mm/Hg HCO3 (21-28) mmol/L ABG pH (7.35-7.45) ABG Total CO2 (22-28) mmol.L ABG O2 Saturation (95-98) % ABG O2 Content (15-23) ML/dl ABG Base Excess (-2.0-3.0) mmol/L ABG Hemoglobin (11.7-17.4) g/dL ABG Carboxyhemoglobin (0.5-1.5) % POC ABG HHb (Measured) (0-5) % ABG Methemoglobin (0.0-3.0) % ABG O2 Capacity (16-24) mL/dl Hgb O2 Saturation (95.0-98.0) % FiO2 % Sodium 155 H (132-148) mmol/L Potassium 4.1 (3.6-5.0) mmol/L Chloride 122 H (98-107) mmol/L Carbon Dioxide 20 L (21-33) mmol/L Anion Gap 17 (10-20) BUN 16 (7-21) mg/dL Creatinine 0.9 (0.5-1.4) mg/dL Est GFR ( Amer) > 60 Est GFR (Non-Af Amer) > 60 POC Glucose (mg/dL) 106 104 (65-110) mg/dL Random Glucose 88 (70-110) mg/dL Hemoglobin A1c (4.2-6.5) % Lactic Acid (0.7-2.1) mmol/L Calcium 9.2 (8.4-10.5) mg/dL Cortisol AM Sample (4.46-22.7) ug/dL 03/20/17 03/20/17 03/20/17 Range/Units 13:59 13:11 12:00 WBC (4.5-11.0) 10^3/ul RBC (3.5-6.1) 10^6/uL Hgb (12.0-16.0) gm/dL Hct (36.0-48.0) % MCV (80.0-105.0) fL MCH (25.0-35.0) pg MCHC (31.0-37.0) g/dl RDW (11.5-14.5) % Plt Count (120.0-450.0) 10^3/uL MPV (7.0-11.0) fl pCO2 (35-45) mm/Hg pO2 (80-100) mm/Hg HCO3 (21-28) mmol/L ABG pH (7.35-7.45) ABG Total CO2 (22-28) mmol.L ABG O2 Saturation (95-98) % ABG O2 Content (15-23) ML/dl ABG Base Excess (-2.0-3.0) mmol/L ABG Hemoglobin (11.7-17.4) g/dL ABG Carboxyhemoglobin (0.5-1.5) % POC ABG HHb (Measured) (0-5) % ABG Methemoglobin (0.0-3.0) % ABG O2 Capacity (16-24) mL/dl Hgb O2 Saturation (95.0-98.0) % FiO2 % Sodium (132-148) mmol/L Potassium (3.6-5.0) mmol/L Chloride (98-107) mmol/L Carbon Dioxide (21-33) mmol/L Anion Gap (10-20) BUN (7-21) mg/dL Creatinine (0.5-1.4) mg/dL Est GFR ( Amer) Est GFR (Non-Af Amer) POC Glucose (mg/dL) 147 H 205 H 327 H (65-110) mg/dL Random Glucose (70-110) mg/dL Hemoglobin A1c (4.2-6.5) % Lactic Acid (0.7-2.1) mmol/L Calcium (8.4-10.5) mg/dL Cortisol AM Sample (4.46-22.7) ug/dL 03/20/17 03/20/17 03/20/17 Range/Units 11:11 11:11 11:06 WBC (4.5-11.0) 10^3/ul RBC (3.5-6.1) 10^6/uL Hgb (12.0-16.0) gm/dL Hct (36.0-48.0) % MCV (80.0-105.0) fL MCH (25.0-35.0) pg MCHC (31.0-37.0) g/dl RDW (11.5-14.5) % Plt Count (120.0-450.0) 10^3/uL MPV (7.0-11.0) fl pCO2 (35-45) mm/Hg pO2 (80-100) mm/Hg HCO3 (21-28) mmol/L ABG pH (7.35-7.45) ABG Total CO2 (22-28) mmol.L ABG O2 Saturation (95-98) % ABG O2 Content (15-23) ML/dl ABG Base Excess (-2.0-3.0) mmol/L ABG Hemoglobin (11.7-17.4) g/dL ABG Carboxyhemoglobin (0.5-1.5) % POC ABG HHb (Measured) (0-5) % ABG Methemoglobin (0.0-3.0) % ABG O2 Capacity (16-24) mL/dl Hgb O2 Saturation (95.0-98.0) % FiO2 % Sodium (132-148) mmol/L Potassium (3.6-5.0) mmol/L Chloride (98-107) mmol/L Carbon Dioxide (21-33) mmol/L Anion Gap (10-20) BUN (7-21) mg/dL Creatinine (0.5-1.4) mg/dL Est GFR ( Amer) Est GFR (Non-Af Amer) POC Glucose (mg/dL) 374 H (65-110) mg/dL Random Glucose (70-110) mg/dL Hemoglobin A1c 10.8 H (4.2-6.5) % Lactic Acid (0.7-2.1) mmol/L Calcium (8.4-10.5) mg/dL Cortisol AM Sample 26.3 H (4.46-22.7) ug/dL 03/20/17 03/20/17 03/19/17 Range/Units 10:35 09:01 15:14 WBC (4.5-11.0) 10^3/ul RBC (3.5-6.1) 10^6/uL Hgb (12.0-16.0) gm/dL Hct (36.0-48.0) % MCV (80.0-105.0) fL MCH (25.0-35.0) pg MCHC (31.0-37.0) g/dl RDW (11.5-14.5) % Plt Count (120.0-450.0) 10^3/uL MPV (7.0-11.0) fl pCO2 (35-45) mm/Hg pO2 (80-100) mm/Hg HCO3 (21-28) mmol/L ABG pH (7.35-7.45) ABG Total CO2 (22-28) mmol.L ABG O2 Saturation (95-98) % ABG O2 Content (15-23) ML/dl ABG Base Excess (-2.0-3.0) mmol/L ABG Hemoglobin (11.7-17.4) g/dL ABG Carboxyhemoglobin (0.5-1.5) % POC ABG HHb (Measured) (0-5) % ABG Methemoglobin (0.0-3.0) % ABG O2 Capacity (16-24) mL/dl Hgb O2 Saturation (95.0-98.0) % FiO2 % Sodium (132-148) mmol/L Potassium (3.6-5.0) mmol/L Chloride (98-107) mmol/L Carbon Dioxide (21-33) mmol/L Anion Gap (10-20) BUN (7-21) mg/dL Creatinine (0.5-1.4) mg/dL Est GFR ( Amer) Est GFR (Non-Af Amer) POC Glucose (mg/dL) 463 H* > 500 H* 333 H (65-110) mg/dL Random Glucose (70-110) mg/dL Hemoglobin A1c (4.2-6.5) % Lactic Acid (0.7-2.1) mmol/L Calcium (8.4-10.5) mg/dL Cortisol AM Sample (4.46-22.7) ug/dL 03/19/17 03/19/17 03/19/17 Range/Units 13:39 12:16 11:34 WBC (4.5-11.0) 10^3/ul RBC (3.5-6.1) 10^6/uL Hgb (12.0-16.0) gm/dL Hct (36.0-48.0) % MCV (80.0-105.0) fL MCH (25.0-35.0) pg MCHC (31.0-37.0) g/dl RDW (11.5-14.5) % Plt Count (120.0-450.0) 10^3/uL MPV (7.0-11.0) fl pCO2 (35-45) mm/Hg pO2 (80-100) mm/Hg HCO3 (21-28) mmol/L ABG pH (7.35-7.45) ABG Total CO2 (22-28) mmol.L ABG O2 Saturation (95-98) % ABG O2 Content (15-23) ML/dl ABG Base Excess (-2.0-3.0) mmol/L ABG Hemoglobin (11.7-17.4) g/dL ABG Carboxyhemoglobin (0.5-1.5) % POC ABG HHb (Measured) (0-5) % ABG Methemoglobin (0.0-3.0) % ABG O2 Capacity (16-24) mL/dl Hgb O2 Saturation (95.0-98.0) % FiO2 % Sodium (132-148) mmol/L Potassium (3.6-5.0) mmol/L Chloride (98-107) mmol/L Carbon Dioxide (21-33) mmol/L Anion Gap (10-20) BUN (7-21) mg/dL Creatinine (0.5-1.4) mg/dL Est GFR ( Amer) Est GFR (Non-Af Amer) POC Glucose (mg/dL) 478 H* 458 H* > 500 H* (65-110) mg/dL Random Glucose (70-110) mg/dL Hemoglobin A1c (4.2-6.5) % Lactic Acid (0.7-2.1) mmol/L Calcium (8.4-10.5) mg/dL Cortisol AM Sample (4.46-22.7) ug/dL Laboratory Results - last 24 hr 03/19/17 03/19/17 03/19/17 11:34 12:16 13:39 WBC RBC Hgb Hct MCV MCH MCHC RDW Plt Count MPV pCO2 pO2 HCO3 ABG pH ABG Total CO2 ABG O2 Saturation ABG O2 Content ABG Base Excess ABG Hemoglobin ABG Carboxyhemoglobin POC ABG HHb (Measured) ABG Methemoglobin ABG O2 Capacity Hgb O2 Saturation FiO2 Sodium Potassium Chloride Carbon Dioxide Anion Gap BUN Creatinine Est GFR ( Amer) Est GFR (Non-Af Amer) POC Glucose (mg/dL) > 500 H* 458 H* 478 H* Random Glucose Hemoglobin A1c Lactic Acid Calcium Cortisol AM Sample 03/19/17 03/20/17 03/20/17 15:14 09:01 10:35 WBC RBC Hgb Hct MCV MCH MCHC RDW Plt Count MPV pCO2 pO2 HCO3 ABG pH ABG Total CO2 ABG O2 Saturation ABG O2 Content ABG Base Excess ABG Hemoglobin ABG Carboxyhemoglobin POC ABG HHb (Measured) ABG Methemoglobin ABG O2 Capacity Hgb O2 Saturation FiO2 Sodium Potassium Chloride Carbon Dioxide Anion Gap BUN Creatinine Est GFR ( Amer) Est GFR (Non-Af Amer) POC Glucose (mg/dL) 333 H > 500 H* 463 H* Random Glucose Hemoglobin A1c Lactic Acid Calcium Cortisol AM Sample 03/20/17 03/20/17 03/20/17 11:06 11:11 11:11 WBC RBC Hgb Hct MCV MCH MCHC RDW Plt Count MPV pCO2 pO2 HCO3 ABG pH ABG Total CO2 ABG O2 Saturation ABG O2 Content ABG Base Excess ABG Hemoglobin ABG Carboxyhemoglobin POC ABG HHb (Measured) ABG Methemoglobin ABG O2 Capacity Hgb O2 Saturation FiO2 Sodium Potassium Chloride Carbon Dioxide Anion Gap BUN Creatinine Est GFR ( Amer) Est GFR (Non-Af Amer) POC Glucose (mg/dL) 374 H Random Glucose Hemoglobin A1c 10.8 H Lactic Acid Calcium Cortisol AM Sample 26.3 H 03/20/17 03/20/17 03/20/17 12:00 13:11 13:59 WBC RBC Hgb Hct MCV MCH MCHC RDW Plt Count MPV pCO2 pO2 HCO3 ABG pH ABG Total CO2 ABG O2 Saturation ABG O2 Content ABG Base Excess ABG Hemoglobin ABG Carboxyhemoglobin POC ABG HHb (Measured) ABG Methemoglobin ABG O2 Capacity Hgb O2 Saturation FiO2 Sodium Potassium Chloride Carbon Dioxide Anion Gap BUN Creatinine Est GFR ( Amer) Est GFR (Non-Af Amer) POC Glucose (mg/dL) 327 H 205 H 147 H Random Glucose Hemoglobin A1c Lactic Acid Calcium Cortisol AM Sample 03/20/17 03/20/17 03/20/17 14:56 15:30 16:02 WBC RBC Hgb Hct MCV MCH MCHC RDW Plt Count MPV pCO2 pO2 HCO3 ABG pH ABG Total CO2 ABG O2 Saturation ABG O2 Content ABG Base Excess ABG Hemoglobin ABG Carboxyhemoglobin POC ABG HHb (Measured) ABG Methemoglobin ABG O2 Capacity Hgb O2 Saturation FiO2 Sodium 155 H Potassium 4.1 Chloride 122 H Carbon Dioxide 20 L Anion Gap 17 BUN 16 Creatinine 0.9 Est GFR ( Amer) > 60 Est GFR (Non-Af Amer) > 60 POC Glucose (mg/dL) 104 106 Random Glucose 88 Hemoglobin A1c Lactic Acid Calcium 9.2 Cortisol AM Sample 03/20/17 03/20/17 03/20/17 17:01 18:00 18:19 WBC RBC Hgb Hct MCV MCH MCHC RDW Plt Count MPV pCO2 pO2 HCO3 ABG pH ABG Total CO2 ABG O2 Saturation ABG O2 Content ABG Base Excess ABG Hemoglobin ABG Carboxyhemoglobin POC ABG HHb (Measured) ABG Methemoglobin ABG O2 Capacity Hgb O2 Saturation FiO2 Sodium 154 H Potassium 4.2 Chloride 121 H Carbon Dioxide 17 L Anion Gap 20 BUN 15 Creatinine 0.9 Est GFR ( Amer) > 60 Est GFR (Non-Af Amer) > 60 POC Glucose (mg/dL) 138 H 151 H Random Glucose 132 H Hemoglobin A1c Lactic Acid Calcium 9.3 Cortisol AM Sample 03/20/17 03/20/17 03/20/17 18:20 19:25 20:27 WBC RBC Hgb Hct MCV MCH MCHC RDW Plt Count MPV pCO2 pO2 HCO3 ABG pH ABG Total CO2 ABG O2 Saturation ABG O2 Content ABG Base Excess ABG Hemoglobin ABG Carboxyhemoglobin POC ABG HHb (Measured) ABG Methemoglobin ABG O2 Capacity Hgb O2 Saturation FiO2 Sodium Potassium Chloride Carbon Dioxide Anion Gap BUN Creatinine Est GFR ( Amer) Est GFR (Non-Af Amer) POC Glucose (mg/dL) 156 H 120 H Random Glucose Hemoglobin A1c Lactic Acid 1.1 Calcium Cortisol AM Sample 03/20/17 03/21/17 03/21/17 21:09 00:08 05:30 WBC 18.1 H RBC 3.48 L Hgb 9.3 L Hct 29.8 L MCV 85.6 MCH 26.7 MCHC 31.2 RDW 17.8 H Plt Count 396 MPV 8.6 pCO2 pO2 HCO3 ABG pH ABG Total CO2 ABG O2 Saturation ABG O2 Content ABG Base Excess ABG Hemoglobin ABG Carboxyhemoglobin POC ABG HHb (Measured) ABG Methemoglobin ABG O2 Capacity Hgb O2 Saturation FiO2 Sodium Potassium Chloride Carbon Dioxide Anion Gap BUN Creatinine Est GFR ( Amer) Est GFR (Non-Af Amer) POC Glucose (mg/dL) 111 H 238 H Random Glucose Hemoglobin A1c Lactic Acid Calcium Cortisol AM Sample 03/21/17 03/21/17 03/21/17 05:30 09:46 11:15 WBC RBC Hgb Hct MCV MCH MCHC RDW Plt Count MPV pCO2 35 pO2 164.0 H HCO3 19.3 L ABG pH 7.35 ABG Total CO2 20.4 L ABG O2 Saturation 98.9 H ABG O2 Content 12.7 L ABG Base Excess -5.7 L ABG Hemoglobin 9.0 L ABG Carboxyhemoglobin 0.9 POC ABG HHb (Measured) 1.1 ABG Methemoglobin 0.4 ABG O2 Capacity 12.8 L Hgb O2 Saturation 97.6 FiO2 36.0 Sodium 150 H 148 Potassium 4.0 3.4 L Chloride 117 H 114 H Carbon Dioxide 16 L 25 Anion Gap 21 H 12 BUN 13 12 Creatinine 0.9 0.9 Est GFR ( Amer) > 60 > 60 Est GFR (Non-Af Amer) > 60 > 60 POC Glucose (mg/dL) Random Glucose 334 H* D 90 Hemoglobin A1c Lactic Acid Calcium 9.4 9.2 Cortisol AM Sample Critical Care Progress Note - Nutrition Nutrition: Nutrition Category Date Time Status Consistent Carbohydrate [DIET] Diets 03/21/17 Dinner Ordered Attending/Attestation - Attestation I have personally seen and examined this patient.: Yes I have fully participated in the care of the patient.: Yes I have reviewed all pertinent clinical information: Yes Notes (Text): 03/21/17 13:55 42 y/o F w/ DKA Continue DKA protocol Continue Insulin drip regardless of the blood sugars. If the BS <250 switch to D%1/2 normal saline but continue Insulin drip Once AG has closed appx 12. Then add Long acting Insulin w/ Levimir 20, overlap the Insulin drip x 2hrs . Continue Sliding scale Insuling w/ q2hrs coverage, and resume diet at that point. Severe Gastroparesis, small meals and Reglan added. Ct abd pending for elevated WBC. Empiric abx continued. cc time 65 min
[2017-03-21 11:31] LABS: BLOOD UREA NITROGEN 12 mg/dL (7-21); CALCIUM 9.2 mg/dL (8.4-10.5); CARBON DIOXIDE 25 mmol/L (21-33); CHLORIDE 114 mmol/L (98-107); GFR AFRICAN-AMERICAN > 60; GLUCOSE,RANDOM 90 mg/dL (70-110); POTASSIUM 3.4 mmol/L (3.6-5.0); SODIUM 148 mmol/L (132-148)
[2017-03-21] MEDS ORDERED: Insulin Detemir 100 units/ml Vial (Levemir) SC ONE (13:42)
--- NOTE | 2017-03-21 16:21 | PN ---
DATE: 03/21/2017 LOCATION: ICU 129, room 4. This is a 42-year-old female with recent uncontrolled type 1 insulin-dependent diabetes, now being fo llowed closely for metabolic management. Her glycemic levels are fluctuating as noted and expected b ecause of the coverage scale as given with no basal and bolus drug combination as ordered. She has b een taken off the insulin drip at this time as the acidosis has resolved and the latest chemistry jaja wed a BUN of 12, sodium 148, potassium 3.4, chloride 114, CO2 25, glucose 90, and creatinine 0.9. Th e initial fasting glucose this morning was actually 334 mg/dL and the glucose levels were 111-238 at bedtime last night. So at this time, we will modify once again her basal and bolus insulin regimen a nd restart her on the regular insulin given as 6 units subQ t.i.d. before meals to start today as ord ered. Because of her underlying gastroparesis, it would be safer to give the regular insulin than th e Humalog to obviate 7 glycemic dips of her glucose levels. We will also add regular insulin g iven as 6 units and will titrate accordingly to optimize metabolic control. We will follow and advis e accordingly. Tamara Campo MD cc: [id number] TT: 03/21/2017 16:21:04 Confirmation # [id number] Dictation # [id number] rahul
[2017-03-21] MEDS ORDERED: Insulin Regular 1 UNITS/0.01 ML ML SC SCH (16:30)
[2017-03-21] MEDS: Insulin Regular 1 UNITS/0.01 ML ML SC SCH ×3 (16:52→21:53)
[2017-03-21 18:38] LABS: BLOOD UREA NITROGEN 11 mg/dL (7-21); CALCIUM 9.2 mg/dL (8.4-10.5); CARBON DIOXIDE 24 mmol/L (21-33); CHLORIDE 109 mmol/L (98-107); GFR AFRICAN-AMERICAN > 60; GLUCOSE,RANDOM 187 mg/dL (70-110); POTASSIUM 3.9 mmol/L (3.6-5.0); SODIUM 142 mmol/L (132-148)
[2017-03-21] MEDS: Insulin Detemir 100 units/ml Vial (Levemir) SC SCH (22:00)
[2017-03-21] MEDS ORDERED: Insulin Detemir 100 units/ml Vial (Levemir) SC SCH (22:00)
[2017-03-22] MEDS: Morphine 2 mg/ml ISec IVP PRN ×4 (02:23→22:36)
[2017-03-22 06:06] LABS: ALB/GLOB RATIO 0.9 (1.1-1.8); ALKALINE PHOSPHATASE 65 U/L (38-133); ALT/SGPT 37 U/L (7-56); AST/SGOT 35 U/L (15-39); BILIRUBIN,TOTAL 0.7 mg/dL (0.2-1.3); BLOOD UREA NITROGEN 11 mg/dL (7-21); CALCIUM 8.8 mg/dL (8.4-10.5); CARBON DIOXIDE 27 mmol/L (21-33); CHLORIDE 109 mmol/L (98-107); GFR AFRICAN-AMERICAN > 60; GLUCOSE,RANDOM 64 mg/dL (70-110); HEMATOCRIT 25.9 % (36.0-48.0); MEAN CELL VOLUME 83.3 fL (80.0-105.0); MEAN CORPUSCULAR HEMOGLOBIN 26.7 pg (25.0-35.0); MEAN PLATELET VOLUME 8.6 fl (7.0-11.0); POTASSIUM 3.4 mmol/L (3.6-5.0); RED CELL DISTRIBUTION WIDTH 17.7 % (11.5-14.5); SODIUM 143 mmol/L (132-148); TOTAL PROTEIN 6.2 g/dL (5.8-8.3)
[2017-03-22 06:08] LABS: WHITE BLOOD COUNT 8.5 10^3/ul (4.5-11.0)
[2017-03-22] MEDS: Insulin Regular 1 UNITS/0.01 ML ML SC SCH ×6 (07:35→17:27)
--- NOTE | 2017-03-22 08:03 | PN ---
DATE: 03/22/2017 I see her in the intensive care unit. She is more alert, talking to me better. She is doing better with her numbers for the blood sugars and overall improving. I believe we will get her out of the in tensive care unit today to med/surg. She is on Carafate, dextrose IV, heparin, insulin, Levemir, Lopressor, meropenem IV, morphine, Norvas c, Protonix and Zofran. PHYSICAL EXAMINATION: VITAL SIGNS: 98.2 temp, 104 pulse, 14 respiratory rate. HEENT: Head is atraumatic, normocephalic. Throat is moist. NECK: Supple. She is talking to me. She is alert. She is aware of what is going on. HEART: Regular rate, tachy. LUNGS: Decreased breath sounds, but clear. ABDOMEN: Soft. EXTREMITIES: No edema. LABORATORY DATA: She has an 8.5 white count, best it has been; 8.3 hemoglobin, a little bit low. We will keep an eye on that, 25.9 hematocrit, and 318 platelets. Sodium 143, potassium is 3.4. I am g oing to give her some potassium today. BUN is 11, creatinine 0.8, GFR is greater than 60. Sugar was 159. Now it is 64, calcium is 8.8, total bili is 0.7, AST is 35, ALT is 37, alk phos 65. Total pro tein 6.2. She is being seen by gastroenterology, infectious disease, and endocrinology. She has an abdominal f lat plate x-ray which showed no active disease. She is here for a couple of reasons, diabetic ketoac idosis, hypertension, coronary artery disease, systemic inflammatory response syndrome, gastroparesis . She is still on IV Merrem by the infectious disease doctor. The plan should be to discharge from the intensive care unit today, get her to medical/surgical, get physical therapy involved. Get her t o eat better. We will see what physical therapy recommends. Also, endocrinology care with her diabe margy and I will check her labs tomorrow. She is definitely improving. David Theodore DO cc: [id number] TT: 03/22/2017 08:02:43 Confirmation # [id number] Dictation # [id number] tn
[2017-03-22] MEDS: Meropenem 1g/NS 100mL IVPB 1 GM/100 ML PIGGYBACK IVPB SCH ×3 (09:25→22:36)
--- NOTE | 2017-03-22 13:33 | CP.PCM.PN ---
Subjective - Date & Time of Evaluation Date of Evaluation: 03/22/17 Time of Evaluation: 09:30 - Subjective Subjective: Patient is comfortable in bed, not in distress, no nausea, has occasional shortness of breath. No fevers overnight. Objective - Vital Signs/Intake and Output Vital Signs (last 24 hours): Temp Pulse Resp BP Pulse Ox 97.4 F L 108 H 14 136/68 100 03/22/17 08:42 03/22/17 11:30 03/22/17 11:30 03/22/17 09:59 03/21/17 16:30 Intake and Output: 03/22/17 03/22/17 06:59 18:59 Intake Total 110 Balance 110 - Medications Medications: Current Medications Amlodipine Besylate (Norvasc) 2.5 mg PO DAILY [facility] Last Admin: 03/22/17 09:59 Dose: 2.5 mg Doxycycline Hyclate (Doryx) 100 mg PO Q12 MICHELLE PRN Reason: Protocol Heparin Sodium (Porcine) (Heparin) 5,000 units SC Q12 MICHELLE PRN Reason: Protocol Last Admin: 03/22/17 09:26 Dose: 5,000 units Dextrose/Sodium Chloride (Dextrose 5%/0.45% Ns 1000 Ml) 1,000 mls @ 125 mls/hr IV .Q8H [facility] Last Admin: 03/21/17 12:31 Dose: 125 mls/hr Meropenem 1g/NS 100mL IVPB (Meropenem 1g/Ns 100ml Ivpb) 1 gm in 100 mls @ 100 mls/hr IVPB Q8 MICHELLE PRN Reason: Protocol Stop: 03/30/17 14:01 Insulin Detemir (Levemir) 12 unit SC HS [facility] Last Admin: 03/21/17 22:00 Dose: 12 unit Insulin Human Regular (Humulin R) 6 units SC AC [facility] Last Admin: 03/22/17 07:35 Dose: Not Given Insulin Human Regular (Humulin R) 0 units SC ACHS MICHELLE PRN Reason: Protocol Last Admin: 03/22/17 11:56 Dose: Not Given Metoprolol Tartrate (Lopressor) 25 mg PO BID [facility] Last Admin: 03/22/17 09:26 Dose: 25 mg Morphine Sulfate (Morphine) 2 mg IVP Q4H PRN PRN Reason: Pain, severe (8-10) Last Admin: 03/22/17 07:47 Dose: 2 mg Ondansetron HCl (Zofran Inj) 4 mg IVP Q6H PRN PRN Reason: Nausea/Vomiting Pantoprazole Sodium (Protonix Inj) 40 mg IV 0600 [facility] Last Admin: 03/22/17 05:38 Dose: 40 mg Sucralfate (Carafate Tab) 1 gm PO BID MICHELLE Last Admin: 03/22/17 09:32 Dose: 1 gm - Labs Labs: 03/22/17 05:30 03/22/17 05:30 - Constitutional Appears: Non-toxic, No Acute Distress - Head Exam Head Exam: NORMAL INSPECTION - ENT Exam ENT Exam: Mucous Membranes Moist - Neck Exam Neck Exam: absent: Lymphadenopathy, Meningismus - Respiratory Exam Respiratory Exam: Decreased Breath Sounds - GI/Abdominal Exam GI & Abdominal Exam: Soft. absent: Tenderness Assessment and Plan - Assessment and Plan (Free Text) Plan: Assessment sepsis secondary to left lower lobe pneumonia in a patient presenting with DKA history of gastroparesis history of e. coli UTI CAD history of gastritis GERD history of MRSA cellulitis of the left foot history of DKA history of group B strep infection Plan Continue Doxycycline and Merrem day 3; blood cx are negative; reviewed CT abdomen and pelvis which showed the left lower lobe infiltrate Will continue to monitor clinically
[2017-03-22] MEDS: Sodium Chloride 0.45% 1,000 ML IV SCH (15:04)
--- NOTE | 2017-03-22 16:44 | PN ---
DATE: 03/22/2017 ROOM: 564 This is a 42-year-old female with recent uncontrolled type 1 insulin-dependent diabetes, presenting h ere with intractable vomiting episodes and severe diabetic gastroparesis and is now being followed cl osely for metabolic management. Her oral intake remains quite variable and suboptimal as per the [facility] staff and the latest glucose levels have ranged from 64-159 and 167 mg/dL. Her latest chemistri es include a BUN of 11, sodium 143, potassium 3.4, chloride 109, CO2 of 27, glucose 64, and creatinin e 0.8. So, at this time, we will continue the same basal and bolus insulin regimen as ordered to allow for d ose equilibration. We will continue her Levemir given as 12 units subQ at bedtime daily as given and regular insulin given as 6 units subQ t.i.d. before meals as ordered. We will titrate incrementally as indicated to optimize metabolic control. We will follow. Tamara Campo MD cc: [phone] TT: 03/22/2017 16:43:11 Confirmation # [id number] Dictation # [id number] sn
--- NOTE | 2017-03-22 18:03 | PN ---
DATE: 03/22/2017 Seen and examined at the bedside this afternoon in CCU. She is reporting that she is doing better. She still has abdominal pain, but improved. She is tolerating her oral intake. No nausea, vomiting, or increased abdominal pain. She did have a bowel movement, but it was hard. No reports of any ble eding. Breathing is improved. VITAL SIGNS: Temperature is 97.5, blood pressure is 96/64, pulse 80, respirations 18, 97% room air. LABORATORIES: WBC 8.5, H and H is 8.3 and 25.9, platelets is 318. Sodium 143, K 3.4, BUN 11, creati nine is 0.8. LFTs are within normal limits. The patient had CT scan yesterday and showed left lower lobe pneumonia. The bowel was unremarkable. Abdominal x-ray, no active disease. PHYSICAL EXAMINATION: HEENT: Sclera is anicteric. NECK: Supple. CARDIAC: S1, S2. LUNG SOUNDS: With decreased breath sounds. Did not hear any rales or wheeze. ABDOMEN: With bowel sounds, soft, not distended, mild mid abdominal discomfort, but no rebound or gu arding. ASSESSMENT: Status post diabetic ketoacidosis, severe gastroparesis, pneumonia, history of coronary artery disease and hypertension as well as peptic ulcer disease and chronic constipation. PLAN: Continue consistent carbohydrate diet. She is on Protonix 40 daily, on IV antibiotics, merope nem and oral doxycycline, on deep venous thrombosis prophylaxis, getting insulin therapy and also on Carafate. We will put her on stool softeners. The patient was seen and case discussed with Dr. Gomez. Samantha Webb FARSHAD cc: [id number] TT: 03/22/2017 18:02:10 Confirmation # [id number] Dictation # [id number] en
[2017-03-22] MEDS: Insulin Detemir 100 units/ml Vial (Levemir) SC SCH (22:35)
[2017-03-23] MEDS: Meropenem 1g/NS 100mL IVPB 1 GM/100 ML PIGGYBACK IVPB SCH ×3 (06:25→21:30)
[2017-03-23 06:40] LABS: HEMATOCRIT 24.5 % (36.0-48.0); MEAN CELL VOLUME 82.2 fL (80.0-105.0); MEAN CORPUSCULAR HEMOGLOBIN 26.8 pg (25.0-35.0); MEAN CORPUSCULAR HGB CONC 32.7 g/dl (31.0-37.0); MEAN PLATELET VOLUME 8.5 fl (7.0-11.0); RED CELL DISTRIBUTION WIDTH 16.7 % (11.5-14.5); WHITE BLOOD COUNT 6.1 10^3/ul (4.5-11.0)
[2017-03-23 07:04] LABS: ALB/GLOB RATIO 0.8 (1.1-1.8); ALKALINE PHOSPHATASE 63 U/L (38-133); ALT/SGPT 37 U/L (7-56); AST/SGOT 30 U/L (15-39); BILIRUBIN,TOTAL 0.6 mg/dL (0.2-1.3); BLOOD UREA NITROGEN 11 mg/dL (7-21); CALCIUM 8.5 mg/dL (8.4-10.5); CARBON DIOXIDE 29 mmol/L (21-33); CHLORIDE 102 mmol/L (98-107); GFR AFRICAN-AMERICAN > 60; GLUCOSE,RANDOM 140 mg/dL (70-110); POTASSIUM 3.3 mmol/L (3.6-5.0); SODIUM 138 mmol/L (132-148); TOTAL PROTEIN 5.9 g/dL (5.8-8.3)
[2017-03-23] MEDS: Insulin Regular 1 UNITS/0.01 ML ML SC SCH ×7 (08:30→22:20)
--- NOTE | 2017-03-23 09:18 | PN ---
DATE: 03/23/2017 I see her in room 564. She is now out of the intensive care unit. She is more alert. She is going to need to have physical therapy, get out of bed to chair and start to get her body moving. She has been very ill; in the intensive care unit for 3-4 days now. She had DKA, SIRS, hypertension, coronar y artery disease, gastroparesis, diabetes, urinary tract infection and now is to start improving her strength and get her moving. I put in a TCU eval if she can possibly go there for continued medicati ons and physical therapy, but she has other issues. PHYSICAL EXAMINATION: VITAL SIGNS: 98.5 temp, 96 pulse, 119/68 blood pressure, 20 respiratory rate, 98% O2 sat on room air . HEENT: Head is atraumatic, normocephalic. GENERAL: She is lethargic. She is talking, but she is weak and slow. HEART: Regular rate. LUNGS: Decreased breath sounds but clear to auscultation. ABDOMEN: Soft. EXTREMITIES: No edema. MEDICATIONS: She is currently on Carafate, Colace, Doryx, heparin, insulin, Levemir, Lopressor, Merr em IV, morphine p.r.n., Norvasc, Protonix, IV fluid, Zofran. LABORATORY DATA: She has a 138 sodium, potassium is low at 3.3 (I will replace her potassium), BUN i s 11, creatinine 0.7, GFR is greater than 60, sugar is 140, calcium 8.5. Total bili is 0.6, AST is 3 0, ALT is 37, alk phos 63, total protein 5.9. White count is 6.1 (better), hemoglobin dropped to 8 ( I am going to transfuse her 2 units of packed red blood cells), hematocrit 24.5, platelets of 256. She is being seen by GI, endocrinology and infectious disease. She is on antibiotics and multiple tr eatment for her sepsis, pneumonia, gastroparesis. I am going to transfuse her, will give her potassi um, and hopefully get physical therapy at [facility]. David Theodore DO cc: [id number] TT: 03/23/2017 09:18:00 Confirmation # [id number] Dictation # [id number] mn
--- NOTE | 2017-03-23 15:39 | PN ---
DATE: 03/23/2017 The patient is in bed in no acute distress, nontoxic. PHYSICAL EXAMINATION: VITAL SIGNS: Temperature is 98, blood pressure is 120/70, respiratory rate of 16. HEENT: Unremarkable. NECK: Supple. LUNGS: Decreased breath sounds. HEART: Normal S1, S2. ABDOMEN: Soft. LABORATORY EXAMINATION: Reveals the patient's white count is 6.1, hemoglobin of 8. Chemistries are noted. MICROBIOLOGY: Blood cultures are negative. Review of orders reveals the patient to be on p.o. doxycycline and meropenem. ASSESSMENT AND PLAN: A 42-year-old female with sepsis secondary to left lower lobe pneumonia. The p atient presented with diabetic ketoacidosis, history of gastroparesis, history of Escherichia coli ur inary tract infection. Day #4 of antibiotics of meropenem and doxycycline. Would complete 4-[address] David Theodore's note is reviewed. Clarke Velazco MD cc: [id number] TT: 03/23/2017 15:38:16 Confirmation # [id number] Dictation # [id number] sn
--- NOTE | 2017-03-23 16:04 | PN ---
DATE: 03/23/2017 ROOM: 564. This is a 42-year-old female with recent uncontrolled type 1 insulin-dependent diabetes, presenting h ere with intractable vomiting related to exacerbation of diabetic gastroparesis and is now being foll owed closely for metabolic management. Her DKA has already resolved as noted and the latest chemistr ies showed a BUN of 11, sodium 138, potassium 3.3, chloride 102, CO2 29, glucose 140, and creatinine 0.7. Her glucose levels have ranged from 72-147 mg/dL. So at this time, we will continue the same b crow and bolus insulin regimen as given with Levemir given as 12 units subQ at bedtime daily and regu lar insulin given as 6 units subQ t.i.d. before meals as ordered. We will titrate incrementally as i ndicated to optimize metabolic control. We will follow and advise accordingly. Tamara Campo MD cc: [phone] TT: 03/23/2017 16:03:17 Confirmation # [id number] Dictation # [id number] rahul
--- NOTE | 2017-03-23 16:42 | PN ---
DATE: 03/23/2017 Seen and examined at the bedside earlier today. She is complaining of back pain and denies abdominal pain. Tolerating oral intake and she has been moving her bowels. No diarrhea and no bleeding. She is feeling better. VITAL SIGNS: Temperature is 98.5, blood pressure is 119/68, pulse 96, respirations 20, 98 on room air. LABORATORY DATA: WBC 6.1, H and H is 8.0 and 24.5, platelets are 256. Sodium is 138, K is 3.3, BUN is 11, creatinine is 0.7. LFTs are within normal limits. PHYSICAL EXAMINATION: HEENT: Sclerae are anicteric. NECK: Supple. CARDIAC: S1, S2. LUNGS: Clear. ABDOMEN: With bowel sounds, soft, nondistended, nontender on palpation. No rebound or guarding. ASSESSMENT: Status post diabetic ketoacidosis, sepsis, pneumonia, history of diabetes mellitus and severe gastroparesis. This, so far, is under control. Urinary tract infection, anemia. PLAN: The patient is going to get a blood transfusion. We will continue her diet as tolerated. She is on Carafate, on PPI, is on stool softener, currently on IV antibiotics of meropenem and on DVT prophylaxis. I spoke with the patient. Currently, her mother is in the process of researching for a motility specialist here in [place]. The patient did go to [place] [facility] and as per the patient, they refused to admit her. The patient was seen and case discussed with Dr. Gomez. Samantha YEN cc: [id number] TT: 03/23/2017 16:41:21 Confirmation # [id number] Dictation # [id number] rahul SYLVESTER
[2017-03-23] MEDS: Sodium Chloride 0.45% 1,000 ML IV SCH (17:11)
[2017-03-23] MEDS: Insulin Detemir 100 units/ml Vial (Levemir) SC SCH (21:31)
[2017-03-24 06:07] LABS: MEAN CELL VOLUME 81.6 fL (80.0-105.0); MEAN CORPUSCULAR HEMOGLOBIN 27.6 pg (25.0-35.0); MEAN CORPUSCULAR HGB CONC 33.8 g/dl (31.0-37.0); MEAN PLATELET VOLUME 8.7 fl (7.0-11.0); RED CELL DISTRIBUTION WIDTH 16.4 % (11.5-14.5); WHITE BLOOD COUNT 5.5 10^3/ul (4.5-11.0)
[2017-03-24 06:24] LABS: ALB/GLOB RATIO 0.9 (1.1-1.8); ALKALINE PHOSPHATASE 72 U/L (38-133); ALT/SGPT 40 U/L (7-56); AST/SGOT 29 U/L (15-39); BILIRUBIN,TOTAL 0.4 mg/dL (0.2-1.3); BLOOD UREA NITROGEN 15 mg/dL (7-21); CALCIUM 8.5 mg/dL (8.4-10.5); CARBON DIOXIDE 30 mmol/L (21-33); CHLORIDE 103 mmol/L (95-110); GFR AFRICAN-AMERICAN > 60; POTASSIUM 3.9 mmol/L (3.6-5.0); SODIUM 135 mmol/L (132-148); TOTAL PROTEIN 5.5 g/dL (5.8-8.3)
[2017-03-24 06:51] LABS: GLUCOSE,RANDOM 308 mg/dL (70-110)
[2017-03-24] MEDS: Sodium Chloride 0.45% 1,000 ML IV SCH (07:20)
[2017-03-24 07:27] LABS: HEMATOCRIT 23.1 % (36.0-48.0)
[2017-03-24] MEDS: Meropenem 1g/NS 100mL IVPB 1 GM/100 ML PIGGYBACK IVPB SCH ×3 (07:51→21:53)
[2017-03-24] MEDS: Insulin Regular 1 UNITS/0.01 ML ML SC SCH ×7 (07:54→22:17)
--- NOTE | 2017-03-24 10:26 | PN ---
DATE: 03/24/2017 The patient is in bed in no acute distress, nontoxic. PHYSICAL EXAMINATION: VITAL SIGNS: Temperature is 98, blood pressure is 129/70, respiratory rate of 16. HEENT: Unremarkable. NECK: Supple. LUNGS: Have decreased breath sounds. HEART: Normal S1, S2. ABDOMEN: Soft, nontender. LABORATORY EXAMINATION: Reveals a white count of 5.5, hemoglobin of 7, platelets of 236. Chemistrie s reveal the BUN of 15, creatinine of 0.8. Urinalysis is noted. Microbiology reveals the blood cult ures are no growth. ASSESSMENT AND PLAN: A 42-year-old female with sepsis secondary to left lower lobe pneumonia, presen stone with diabetic ketoacidosis, history of gastroparesis and Escherichia coli urinary tract infection , day #5 of meropenem and doxycycline. Would complete 4-7 days of antibiotics. The patient has had adequate antibiotics. Clarke Velazco MD cc: [id number] TT: 03/24/2017 10:26:11 Confirmation # [id number] Dictation # [id number] tn
--- NOTE | 2017-03-24 11:30 | PN ---
DATE: 03/24/2017 ROOM: 564 This is a 42-year-old female with recent uncontrolled type 1 insulin-dependent diabetes, presenting h ere with acute exacerbation of gastroparesis with intractable vomiting and diffuse abdominal pain and is now being followed closely for metabolic management. She has since then improved clinically and metabolically as noted thereof. Her oral intake, however, remains quite variable at this time. Her latest chemistry showed a BUN of 15, sodium 135, potassium 3.9, chloride 103, CO2 30, glucose 308 and creatinine 0.8. So at this time, we will continue the same basal and bolus insulin regimen to allow for dose equilibr ation and keep her on the Levemir given as 12 units subQ at bedtime daily as ordered. We will contin ue the regular insulin given as 6 units subQ t.i.d. before meals as given. We will titrate increment ally as indicated to optimize metabolic control. We will follow. Tamara Campo MD cc: [phone] TT: 03/24/2017 11:29:36 Confirmation # [id number] Dictation # [id number] en
--- NOTE | 2017-03-24 11:46 | PN ---
DATE: 03/24/2017 I saw the patient resting comfortably this morning. She slept well. She was very lethargic this morning. She feels very weak. We discussed her being anemic and her refusing a blood transfusion. She does not want a blood transfusion. She wants to know why she is anemic. She is very, very argumentative this morning and upset that she is anemic. She is currently on IV fluids, Carafate, Colace, Doryx, I added Feosol. She is on heparin, insulin and coverage, Lasix IV, Levemir, Lopressor, Merrem IV, Norvasc, Protonix and Zofran. PHYSICAL EXAMINATION: VITAL SIGNS: She has a 98.4 temp, 91 pulse, 114/75 blood pressure, 16 respiratory rate, 96% O2 sat on room air. HEAD: Atraumatic, normocephalic. HEART: Regular rate. LUNGS: Clear to auscultation. ABDOMEN: Soft, nontender, positive bowel sounds. EXTREMITIES: No edema. LABORATORY DATA: Today, she has a 5.5 white count, hemoglobin has dropped to 7.8 (I ordered stool for occult blood), hematocrit is 23.1, platelets are 236. She has a 135 sodium, potassium 3.9, BUN 15, creatinine 0.8, GFR is greater than 60. Blood sugars are 140 and bumped to 308. Calcium is 8.5, total bilirubin is 0.4, AST 29, ALT is 40, alkaline phosphatase 72, total protein 5.5. She is being seen by GI, endocrinology and infectious disease. I called in hematology/oncology to see if they can help us out with her anemia. I do not know if GI has to scope her. She is refusing the transfusions. She is on multiple medications for the tummy. We have been trying to get her to go to the hospital in [place] for a few months now, but they refused to put her in the hospital. She is being seen by an geospatial imagery intelligence analyst for her diabetes and the DKA. She is being seen by infectious disease doctor for the sepsis to the left pneumonia, and hopefully she will improve. She is still on IV antibiotics. Will see what hematology has to offer. Try and get her out of bed to chair and physical therapy. David Theodore DO cc: [id number] TT: 03/24/2017 11:15:55 Confirmation # [id number] Dictation # [id number] mn MTDRuth Ann
[2017-03-24] MEDS ORDERED: Insulin Regular 1 UNITS/0.01 ML ML SC STA (16:54)
--- NOTE | 2017-03-24 16:54 | PN ---
DATE: 03/24/2017 Seen and examined at the bedside earlier today. She was experiencing some abdominal discomfort, but is in no acute distress. She denies any nausea or vomiting. She is about to start her breakfast and continues to move her bowels. No diarrhea. No reports of any bleeding. VITAL SIGNS: Temperature is 98.4, blood pressure is 129/77, pulse 96, respirations 16, 96 on room air. LABORATORY DATA: WBC is 5.5, H and H is 7.8 and 23.1, platelets of 236. Sodium 135, K is 3.9, BUN is 15, creatinine 0.8. LFTs are within normal limits. PHYSICAL EXAMINATION: HEENT: Sclera is anicteric. NECK: Supple. CARDIAC: S1, S2. LUNG SOUNDS: With decreased breath sounds, but good air entry, no rales or wheeze. ABDOMEN: With bowel sounds, soft, some tenderness to epigastric area. No rebound, guarding, or organomegaly. EXTREMITIES: Trace edema. ASSESSMENT: Status post diabetic ketoacidosis, history of diabetes mellitus type 2, sepsis with left lower lobe pneumonia. The patient with history of gastroparesis, urinary tract infection, now with anemia. The patient was offered a blood transfusion, she is refusing. History of peptic ulcer disease. PLAN: The patient has been started on iron. 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 Continue stool softeners. She is on oral antibiotics with doxycycline, on DVT prophylaxis, heparin also on IV antibiotics of meropenem. Continue Protonix and Carafate. The patient did have an endoscopy back in 11/2016; had ulcers and LA grade C esophageal ulcers and duodenal ulcer. The patient does need a repeat endoscopy to check healing of these ulcers. We initially recommended about 3 months, currently patient is refusing blood transfusion. Continue to monitor. Spoke to patient and her family in detail. The patient was seen and case discussed with Dr. Gomez. Samantha Tracey FARSHAD cc: [id number] TT: 03/24/2017 16:53:05 Confirmation # [id number] Dictation # [id number] jn HIGINIO
[2017-03-24] MEDS: Insulin Detemir 100 units/ml Vial (Levemir) SC SCH (21:53)
[2017-03-25] MEDS: Meropenem 1g/NS 100mL IVPB 1 GM/100 ML PIGGYBACK IVPB SCH ×3 (06:00→21:58)
[2017-03-25 08:15] LABS: MEAN CELL VOLUME 81.2 fL (80.0-105.0); MEAN CORPUSCULAR HEMOGLOBIN 27.3 pg (25.0-35.0); MEAN CORPUSCULAR HGB CONC 33.6 g/dl (31.0-37.0); MEAN PLATELET VOLUME 9.4 fl (7.0-11.0); RED CELL DISTRIBUTION WIDTH 16.4 % (11.5-14.5); WHITE BLOOD COUNT 5.9 10^3/ul (4.5-11.0)
[2017-03-25 08:27] LABS: ALB/GLOB RATIO 0.9 (1.1-1.8); ALKALINE PHOSPHATASE 84 U/L (38-133); ALT/SGPT 47 U/L (7-56); AST/SGOT 38 U/L (15-39); BILIRUBIN,TOTAL 0.5 mg/dL (0.2-1.3); BLOOD UREA NITROGEN 17 mg/dL (7-21); CALCIUM 8.5 mg/dL (8.4-10.5); CARBON DIOXIDE 30 mmol/L (21-33); CHLORIDE 98 mmol/L (98-107); GFR AFRICAN-AMERICAN > 60; POTASSIUM 4.1 mmol/L (3.6-5.0); SODIUM 133 mmol/L (132-148); TOTAL PROTEIN 5.9 g/dL (5.8-8.3)
[2017-03-25 08:30] LABS: GLUCOSE,RANDOM 319 mg/dL (70-110)
[2017-03-25] MEDS: Insulin Regular 1 UNITS/0.01 ML ML SC SCH ×7 (08:30→21:57)
[2017-03-25 08:34] LABS: HEMATOCRIT 23.8 % (36.0-48.0)
[2017-03-25] MEDS ORDERED: Insulin Detemir 100 units/ml Vial (Levemir) SC SCH (09:14)
--- NOTE | 2017-03-25 09:49 | PN ---
DATE: 03/25/2017 I saw the patient sitting up in bed, eating her breakfast. It is the most I have seen her with a goo d attitude and good body posture. She is alert. She is awake. She is strong. She is eating her br eakfast. She is smiling at me, good spirits. MEDICATIONS: She is on Carafate, Colace, Doryx, Feosol, heparin, insulin, Levemir, Lopressor, Merrem IV, Norvasc, Protonix, IV fluids, Toradol and Zofran. PHYSICAL EXAMINATION: VITAL SIGNS: Today are 97.9 temp, 98 pulse, 155/92 blood pressure, 16 respiratory rate, 98% O2 sat o n room air. I will increase her Norvasc to 5 mg today since the blood pressure is creeping up. HEENT: Head is atraumatic, normocephalic. Throat is moist. NECK: Supple. HEART: Regular rate. LUNGS: Decreased breath sounds, but clear to auscultation. ABDOMEN: Soft, nontender, positive bowel sounds. EXTREMITIES: Possible trace edema. LABORATORY DATA: She had a 5.9 white count, hemoglobin is 8. She is still refusing transfusion. Rojeilo curtis is on iron now, 23.8 hematocrit with 266 platelets. Sodium 133, potassium 4.1, BUN 17, creatinine 0.7, GFR is greater than 60, sugars are still up at 308 and 319. I will talk with endocrinology and I will increase her insulin. Calcium is 8.5. Total bili is 0.5, AST is 38, ALT is 47, alk phos is 8 4, total protein 5.9. She is being seen by gastroenterology, infectious disease, endocrinology. I am waiting for hematolog y to come and see her. We are checking stools for occult blood. She is on deep venous thrombosis pr ophylaxis, antibiotics, IV fluids. She has lots of issues. She has sepsis secondary to left lower l obe pneumonia, diabetic ketoacidosis, Escherichia coli in the urine. She is Merrem 5 out of 7 days s o far. She probably has 2 more days here. I will see if hematology could come in and help us. She is on iron. I am going to increase her Norvasc. I am going to increase her Levemir. We will check her labs tomorrow and await hematology. David Theodore DO cc: [id number] TT: 03/25/2017 09:48:59 Confirmation # [id number] Dictation # [id number] tn
[2017-03-25 09:55] VITALS: RESP 18
--- NOTE | 2017-03-25 11:39 | PN ---
DATE: 03/25/2017 The patient was seen earlier today in 564, bed 1. The patient has had no fevers and no chills. PHYSICAL EXAMINATION: VITAL SIGNS: Temperature is 98, blood pressure is 120/80, respiratory rate of 16. HEENT: Unremarkable. NECK: Supple. LUNGS: Have decreased breath sounds. HEART: Normal S1, S2. ABDOMEN: Soft, nontender. LABORATORY DATA: Reviewed. Dr. David Theodore's note is reviewed from today. Review of the orders confirms the patient to be on doxycycline and meropenem. ASSESSMENT AND PLAN: A 42-year-old female with sepsis secondary to left lower lobe pneumonia and zoraida betic ketoacidosis, gastroparesis, Escherichia coli urinary tract infection. Today is day #6 of bam penem day #6 of doxycycline. Would complete 4-7 days of antibiotics. Clarke Velazco MD cc: [id number] TT: 03/25/2017 11:38:21 Confirmation # [id number] Dictation # [id number] jn
--- NOTE | 2017-03-25 13:17 | PN ---
DATE: 03/25/2017 In room 316. This is a 42-year-old female with recent uncontrolled type 1 insulin-dependent diabetes now being fol lowed closely for metabolic management. Her oral intake is much improved at this time with recent in tractable vomiting and acute abdominal pain related to an exacerbation of her diabetic gastroparesis. Hyperglycemic levels have supervened and the glucose levels have ranged from 125-233 and 330 mg/dL. So at this time, we will modify her regular insulin and increase the dose to 8 units of the regular insulin to be given before each meal to start today as ordered. We will titrate incrementally as in dicated to optimize metabolic control. We will also increase the basal insulin with Levemir to be gi jose cruz as 15 units subQ at bedtime daily as given. We will titrate incrementally as indicated to optimi ze metabolic control. We will follow and advise accordingly. Tamara Campo MD cc: [id number] TT: 03/25/2017 13:16:48 Confirmation # [id number] Dictation # [id number] tn
[2017-03-25] MEDS: Sodium Chloride 0.45% 1,000 ML IV SCH ×2 (13:52→21:04)
[2017-03-26] MEDS: Meropenem 1g/NS 100mL IVPB 1 GM/100 ML PIGGYBACK IVPB SCH (06:04)
[2017-03-26 06:22] LABS: HEMATOCRIT 24.2 % (36.0-48.0); MEAN CELL VOLUME 81.2 fL (80.0-105.0); MEAN CORPUSCULAR HEMOGLOBIN 26.8 pg (25.0-35.0); MEAN CORPUSCULAR HGB CONC 33.1 g/dl (31.0-37.0); RED CELL DISTRIBUTION WIDTH 16.5 % (11.5-14.5); WHITE BLOOD COUNT 7.2 10^3/ul (4.5-11.0)
[2017-03-26 06:32] LABS: ALB/GLOB RATIO 0.9 (1.1-1.8); ALKALINE PHOSPHATASE 86 U/L (38-133); ALT/SGPT 50 U/L (7-56); AST/SGOT 34 U/L (15-39); BILIRUBIN,TOTAL 0.5 mg/dL (0.2-1.3); BLOOD UREA NITROGEN 17 mg/dL (7-21); CARBON DIOXIDE 32 mmol/L (21-33); CHLORIDE 99 mmol/L (98-107); GFR AFRICAN-AMERICAN > 60; GLUCOSE,RANDOM 244 mg/dL (70-110); POTASSIUM 4.2 mmol/L (3.6-5.0); SODIUM 135 mmol/L (132-148); TOTAL PROTEIN 5.9 g/dL (5.8-8.3)
[2017-03-26] MEDS: Insulin Regular 1 UNITS/0.01 ML ML SC SCH ×6 (08:30→16:55)
--- NOTE | 2017-03-26 11:42 | PN ---
DATE: 03/26/2017 The patient is in bed in no acute distress, nontoxic. PHYSICAL EXAMINATION: VITAL SIGNS: Temperature is 98. Blood pressure is 110/70, respiratory rate of 16. HEENT: Unremarkable. NECK: Supple. LUNGS: Have decreased breath sounds. HEART: Normal S1, S2. ABDOMEN: Soft, nontender. LABORATORY EXAMINATION: Reveals a white count of 7.2, hemoglobin of 8, platelets of 275. Chemistrie s are noted. The BUN is 17, creatinine of 0.7. Procalcitonin is 0.36. Microbiology reveals the blo od cultures are no growth at 5 days. Review of the orders reveals the patient to be on meropenem. Dr. Tamara Campo's note is reviewed, and Dr. David Theodore's note is reviewed from yesterday. ASSESSMENT AND PLAN: A 42-year-old female with sepsis secondary to left lower lobe pneumonia, presen stone with diabetic ketoacidosis, history of gastroparesis, Escherichia coli urinary tract infection, d ay #6 of meropenem and doxycycline. Procalcitonin is 0.36. Microbiology reveals the blood cultures are negative. We will discontinue the antibiotics -doxycycline and meropenem. No further antibiotic s needed. Clarke Velazco MD cc: [id number] TT: 03/26/2017 11:42:02 Confirmation # [id number] Dictation # [id number] scott
--- NOTE | 2017-03-26 12:26 | CP.PCM.PN ---
Subjective - Date & Time of Evaluation Date of Evaluation: 03/26/17 Time of Evaluation: 12:10 - Subjective Subjective: Pt is being discharged,has a TLC that needs to be removed. TLC removed using aseptic precautions. Pressure dressing applied. Objective - Vital Signs/Intake and Output Vital Signs (last 24 hours): Temp Pulse Resp BP Pulse Ox 98 F 73 18 128/73 98 03/26/17 08:09 03/26/17 11:00 03/26/17 08:09 03/26/17 11:00 03/26/17 08:09 Intake and Output: 03/26/17 03/26/17 06:59 18:59 Intake Total 2030 Balance 2030 - Medications Medications: Current Medications Amlodipine Besylate (Norvasc) 5 mg PO DAILY [facility] Last Admin: 03/26/17 11:00 Dose: 5 mg Docusate Sodium (Colace) 100 mg PO BID [facility] Last Admin: 03/26/17 10:59 Dose: 100 mg Ferrous Sulfate (Feosol) 324 mg PO TID [facility] Last Admin: 03/26/17 10:59 Dose: 324 mg Heparin Sodium (Porcine) (Heparin) 5,000 units SC Q12 MICHELLE PRN Reason: Protocol Last Admin: 03/26/17 11:00 Dose: Not Given Sodium Chloride (Sodium Chloride 0.45%) 1,000 mls @ 75 mls/hr IV .[id number] [facility] Last Admin: 03/25/17 21:04 Dose: 75 mls/hr Insulin Detemir (Levemir) 18 unit SC HS [facility] Insulin Human Regular (Humulin R) 0 units SC ACHS [facility] PRN Reason: Protocol Last Admin: 03/26/17 11:56 Dose: Not Given Insulin Human Regular (Humulin R) 8 units SC AC [facility] Last Admin: 03/26/17 08:30 Dose: 8 units Ketorolac Tromethamine (Toradol) 30 mg IVP Q6H PRN PRN Reason: Pain, severe (8-10) Last Admin: 03/24/17 18:44 Dose: 30 mg Metoprolol Tartrate (Lopressor) 25 mg PO BID [facility] Last Admin: 03/26/17 10:59 Dose: 25 mg Ondansetron HCl (Zofran Inj) 4 mg IVP Q6H PRN PRN Reason: Nausea/Vomiting Pantoprazole Sodium (Protonix Inj) 40 mg IV 0600 [facility] Last Admin: 03/26/17 06:03 Dose: 40 mg Sucralfate (Carafate Tab) 1 gm PO BID [facility] Last Admin: 03/26/17 10:59 Dose: 1 gm - Labs Labs: 03/26/17 06:15 03/26/17 06:15
[2017-03-26 15:57] VITALS: BP 133/81; PULSE 93; TEMP 98.4; O2SAT 99
[2017-03-26] MEDS ORDERED: Insulin Detemir 100 units/ml Vial (Levemir) SC SCH (22:00)
--- NOTE | 2017-03-26 22:33 | PN ---
DATE: 03/26/2017 SUBJECTIVE: This patient was seen and evaluated today. The patient has been tolerating the diet now . Her concern is more the hemoglobin remain stable at 8. The patient has refused transfusions . Abdominal discomfort has significantly improved. Tolerating the diet. PHYSICAL EXAMINATION: VITAL SIGNS: Temperature is 98.4, blood pressure 133/81, pulse is 93, respirations 18, O2 sat is 99. HEENT: Atraumatic, anicteric. NECK: Supple. HEART: S1, S2 heard. LUNGS: Bilateral air entry present. ABDOMEN: Soft. There is no tenderness. LABORATORY DATA: Hemoglobin is 8, hematocrit 24.2, WBC 7.2, platelets 275. Chemistry is essentially unremarkable, except was 244 and 2.8. IMPRESSION: This is a 42-year-old patient with a history of severe diabetes mellitus with several ep isodes of diabetic ketoacidosis and had a severe gastroparesis. PLAN: The patient was followed at the [facility]. Last time she was not able to follow up because of some insurance problem. Presently, they are planning to follow up at [facility] by . The patient was admitted this time with sepsis, found to have pneumonia and also urinary tract infection. The patient has been on meropenem and doxycycline. So, the patient's antibiotics have been discontinued. The patient had grade 3 esophageal ulcerations. T his was explained to her properly. The patient was again told about the importance of the followup a nd patient needs to be followed up in the gastrointestinal clinic for further workup, further followu p of the endoscopy and also colonoscopy when the patient's condition is optimized. At this time, it is deferred in view of this recent sepsis, pneumonia. This can be electively performed. 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 Thank you very much for allowing us to participate in the care of the patient. The findings and recommendations were discussed with the patient at length, who fully understood. Bev Gomez MD cc: [phone] TT: 03/26/2017 22:33:03 Confirmation # [id number] Dictation # [id number] mn
--- NOTE | 2017-03-26 22:38 | DS ---
SUMMARY: I discussed this with the infectious disease doctor this morning. He stopped the IV antibi otics. She is doing well. She is feeling well. She is eating well, decrease in pain. She is on Ca rafate, Colace, Feosol, insulin, Levemir, Lopressor, Norvasc, Protonix, Toradol, and Zofran. That is what she will go home. I wrote the prescriptions and discussed it with the nurse. PHYSICAL EXAMINATION: VITAL SIGNS: She has a 98 temp, 93 pulse, 110/73 blood pressure, 18 respiratory rate, 98% O2 sat on room air. HEENT: Head is atraumatic, normocephalic. HEART: Regular rate. LUNGS: Clear to auscultation. ABDOMEN: Soft. Positive bowel sounds. EXTREMITIES: No edema. LABORATORY DATA: She has a 7.2 white count, hemoglobin is 8, still refuses transfusion, will be on i bubba 3 times a day, 24.2 hematocrit with 275 platelets, 135 sodium, potassium 4.2, BUN 17, creatinine 0.7, GFR is greater than 60, sugar is 244, calcium is 9, total bili is 0.5, AST is 34, ALT is 50, alk [place] phosphatase 86, total protein is 5.9. PLAN: She was seen by endocrinology, infectious disease and GI. She will follow up at [facility] for GI as per the specialist here. Hopefully, she will do very well. She will come to my off ice in a week if she needs to see me. The patient had multiple issues while she was here: DKA, SIRS, anemia, hypertension, gastritis, CAD, high potassium, gastroparesis. David Theodore DO cc: [id number] TT: 03/26/2017 22:37:52 angie
--- NOTE | 2017-03-27 08:31 | PN ---
DATE: 03/26/2017 ENDO FOLLOWUP NOTE ROOM: 564. This is a 42-year-old female with recent uncontrolled type 1 insulin-dependent diabetes, now being fo llowed closely for metabolic management. Her oral intake has improved following the exacerbation of diabetic gastroparesis ____. Her glycemic are also ____ as noted with glucose levels ranging fr om 124-211 on ____ mg/dL. LABORATORY DATA: Her latest chemistry showed a BUN of 17, sodium 135, potassium ____.2, chloride 99, CO2 of ____, glucose ____, creatinine 0.7. So at this time, we will modify her basal and bolus insulin regimen ____ increase the Levemir to 18 u nits subQ at bedtime daily as ordered to start ____. We will continue the low-dose ____, and we will continue ____ the regular insulin coverage as ordered. We will titrate incrementally as indicated t o optimize metabolic control. We will also continue the regular insulin given as 8 units subQ t.i.d. before meals ____. We will ob tain serial chemistries and supplement accordingly as needed. Tamara Campo MD cc: [phone] TT: 03/26/2017 12:54:57 Confirmation # [id number] Dictation # [id number] scott
== END 2017-03-26 21:15 | disposition home or self-care (01) | DRG 566 ==
LOC: ED 07:01 → ERH 09:40 → CCU 15:51 → 5RNO 03-22 15:31
PROVIDERS: ADMIT Family Medicine; ATTEND Family Medicine
PROC: 05HM33Z Insertion of Infusion Device into Right Internal Jugular Vein, Percutaneous Approach (ICD-10-PCS; principal; 2017-03-20)
PROC: 5A09357 Assistance with Respiratory Ventilation, Less than 24 Consecutive Hours, Continuous Positive Airway Pressure (ICD-10-PCS; 2017-03-20)
DX: E10.10 Type 1 diabetes mellitus with ketoacidosis without coma (principal); A41.9 Sepsis, unspecified organism; J18.9 Pneumonia, unspecified organism; K31.84 Gastroparesis; E10.43 Type 1 diabetes mellitus with diabetic autonomic (poly)neuropathy; K22.10 Ulcer of esophagus without bleeding; E87.5 Hyperkalemia; E86.0 Dehydration; N39.0 Urinary tract infection, site not specified; I10 Essential (primary) hypertension; K29.70 Gastritis, unspecified, without bleeding; I25.10 Atherosclerotic heart disease of native coronary artery without angina pectoris; K21.9 Gastro-esophageal reflux disease without esophagitis; K59.09 Other constipation; D64.9 Anemia, unspecified; E78.5 Hyperlipidemia, unspecified; Z88.8 Allergy status to other drugs, medicaments and biological substances

== ENCOUNTER 2017-04-08 08:03 | Inpatient (IN) | payer MEDICAID ==
[2017-04-08 08:11] VITALS: BMI 22.6
[2017-04-08] MEDS ORDERED: Sodium Chloride 0.9% 1,000 ML IV STA (08:34)
[2017-04-08 08:41] LABS: ADD MANUAL DIFF? NO
[2017-04-08 08:44] LABS: VENOUS BLOOD GAS BASE EXCESS -4.8 mmol/L (0.0-2.0); VENOUS BLOOD PH 7.34 (7.32-7.43)
--- NOTE | 2017-04-08 08:45 | ED PDOC ---
Arrival/HPI - General Chief Complaint: Abdominal Pain Time Seen by Provider: 04/08/17 08:07 Historian: Patient - History of Present Illness Narrative History of Present Illness (Text): 04/08/17 08:34 A 42 year old female, whose past medical history includes insulin dependent diabetes, hypertension, gastroparesis, gastritis, gastric/duodenal ulcers and GERD, presents to the emergency department complaining of abdominal pain since yesterday. Patient notes nausea and 3 episodes of non-bilious non-bloody vomiting. Patient states her symptoms are similar to her previous gastroparesis episodes. Patient denies any fever, chills, diarrhea, urinary symptoms, chest pain, shortness of breath, cough or any other complaints. PMD: Dr. Theodore Time/Duration: Other (yesterday) Symptom Course: Unchanged Quality: Other Context: Home Past Medical History - Provider Review Nursing Documentation Reviewed: Yes - Infectious Disease Hx of Infectious Diseases: None - Tetanus Immunization Tetanus Immunization: Unknown - Past Medical History Past Medical History: No Previous - Cardiac Hx Cardiac Disorders: Yes Hx Hypertension: Yes - Pulmonary Hx Respiratory Disorders: No - Neurological Hx Neurological Disorder: Yes (NEUROPATHY) - HEENT Hx HEENT Disorder: Yes Other/Comment: wears glasses-nearsighted - Renal Hx Renal Disorder: No - Endocrine/Metabolic Hx Diabetes Mellitus Type 1: Yes (hx DKA) - Hematological/Oncological Hx Blood Disorders: No - Integumentary Hx Dermatological Disorder: Yes (hx diabetic foot ulcers) - Musculoskeletal/Rheumatological Hx Falls: No - Gastrointestinal Hx Gastrointestinal Disorders: Yes (gastritis,gastroparesis) Hx Gastroesophageal Reflux: Yes Other/Comment: duodenal ulcers - Genitourinary/Gynecological Hx Urinary Tract Infection: Yes - Psychiatric Hx Psychophysiologic Disorder: Yes Hx Anxiety: Yes Hx Substance Use: No - Past Surgical History Past Surgical History: No Previous - Surgical History Hx Cardiac Catheterization: No - Anesthesia Hx Anesthesia: No Hx Anesthesia Reactions: No Hx Malignant Hyperthermia: No - Suicidal Assessment Feels Threatened In Home Enviroment: No Family/Social History - Physician Review Nursing Documentation Reviewed: Yes Family/Social History: No Known Family HX Smoking Status: Never Smoked Hx Alcohol Use: No Hx Substance Use: No Hx Substance Use Treatment: No Allergies/Home Meds Allergies/Adverse Reactions: Allergies metoclopramide HCl [From Reglan] Adverse Reaction (Verified 04/08/17 08:19) VOMITING Review of Systems - Physician Review All systems were reviewed & negative as marked: Yes - Review of Systems Constitutional: absent: Fevers, Night Sweats Respiratory: absent: SOB, Cough Cardiovascular: absent: Chest Pain Gastrointestinal: Abdominal Pain, Nausea, Vomiting. absent: Diarrhea Genitourinary Female: absent: Dysuria, Frequency, Hematuria, Urine Output Changes Physical Exam - Physical Exam Narrative Physical Exam (Text): Constitutional: Acute distress secondary to pain, rocking back and forth. Head: Normocephalic. Atraumatic. Eyes: PERRL. ENT: Moist mucous membranes. Neck: Supple. Cardiovascular: Tachycardic. Chest: No tenderness. Respiratory: Clear to auscultation bilaterally. GI: Soft. Nontender. Nondistended. Back: No CVA tenderness. Musculoskeletal: No tenderness or swelling of extremities. Skin: No rash. Neurologic: Alert, no focal deficit. Vital Signs Reviewed: Yes Vital Signs Temp Pulse Resp BP Pulse Ox 04/08/17 09:59 128 H 18 171/93 H 100 04/08/17 08:16 98.2 F 134 H 18 180/93 H 100 Temperature: Afebrile Blood Pressure: Hypertensive Pulse: Tachycardic Respiratory Rate: Normal Appearance: Positive for: Non-Toxic, Uncomfortable Pain Distress: Mild Mental Status: Positive for: Alert and Oriented X 3 Finger Stick Blood Glucose: 367 Medical Decision Making ED Course and Treatment: 04/08/17 08:34 Impression: A 42 year old female with abdominal pain, similar to prior gastroparesis pain. Patient notes nausea and vomiting. No abdominal tenderness on exam. Plan: -- Chest xray -- Labs -- Urine culture and Urinalysis -- Pepcid, Zofran and IV fluids -- Reassess and disposition Progress Notes: EKG shows sinus tachycardia at [address]-segment elevations or depressions, largely unchanged from 2 admission EKGs accounting for lead placement. Interpreted by me. 0945 CXR no acute infiltrate or consolidation. 0955 Patient accepted for admission by Dr. Theodore for dehydration, intractable gastroparesis pain. Toradol and Pepcid for pain. - Lab Interpretations Lab Results: 04/08/17 08:39 04/08/17 08:39 Lab Results 04/08/17 09:07: Urine Color Yellow, Urine Appearance Clear, Urine pH 6.0, Ur Specific Colbert 1.025, Urine Protein 30 H, Urine Glucose (UA) >=1000, Urine Ketones >=80, Urine Blood Trace-lysed H, Urine Nitrate Negative, Urine Bilirubin Negative, Urine Urobilinogen 0.2, Ur Leukocyte Esterase Negative, Urine RBC 0 - 2, Urine WBC 0 - 2, Ur Epithelial Cells 10 - 12, Urine Bacteria Few, Urine HCG, Qual Negative 04/08/17 08:39: Sodium 138, Chloride 103, Potassium 4.7, Carbon Dioxide 19 L, Anion Gap 21 H, BUN 17, Creatinine 0.8, Est GFR ( Amer) > 60, Est GFR ( Non-Af Amer) > 60, Random Glucose 357 H* D, Calcium 9.9, Total Bilirubin 1.5 H, AST 27, ALT 42, Alkaline Phosphatase 125, Total Protein 8.1, Albumin 4.4, Globulin 3.6, Albumin/Globulin Ratio 1.2, Lipase 33 04/08/17 08:39: pO2 111 H, VBG pH 7.34, VBG pCO2 38.0 L, VBG HCO3 20.5 L, VBG Total CO2 21.7 L, VBG O2 Sat (Calc) 97.8 H, VBG Base Excess -4.8 L, VBG Potassium 5.5 H, Sodium 138.0, Chloride 106.0, Glucose 367 H, Lactate 2.0, FiO2 21.0, Venous Blood Potassium 5.5 H 04/08/17 08:39: WBC 9.1 D, RBC 3.53, Hgb 9.7 L, Hct 29.1 L, MCV 82.4, MCH 27.5 , MCHC 33.3, RDW 16.9 H, Plt Count 442, MPV 8.8, Gran % 84.2 H, Lymph % (Auto) 11.1 L, [place] % (Auto) 4.6, Eos % (Auto) 0.0 L, Baso % (Auto) 0.1, Gran # 7.65 H , Lymph # 1.0 L, [place] # 0.4, Eos # 0.0, Baso # 0.01 I have reviewed the lab results: Yes - RAD Interpretation Radiology Orders: 04/08/17 08:34 CHEST PORTABLE [RAD] Stat - Medication Orders Current Medication Orders: Ketorolac Tromethamine (Toradol) 30 mg IVP Q8H PRN PRN Reason: Pain, moderate (4-7) Last Admin: 04/08/17 10:03 Dose: 30 mg Pantoprazole Sodium (Protonix Inj) 40 mg IVP Q12 MICHELLE Last Admin: 04/08/17 10:03 Dose: 40 mg Discontinued Medications Famotidine (Pepcid) 20 mg IVP STAT STA Stop: 04/08/17 08:37 Last Admin: 04/08/17 09:46 Dose: 20 mg Sodium Chloride (Sodium Chloride 0.9%) 1,000 mls @ 999 mls/hr IV .Q1H1M STA Stop: 04/08/17 09:34 Last Admin: 04/08/17 09:45 Dose: 999 mls/hr Ondansetron HCl (Zofran Inj) 8 mg IVP STAT STA Stop: 04/08/17 08:35 Last Admin: 04/08/17 09:45 Dose: 8 mg - Scribe Statement The provider has reviewed the documentation as recorded by the Vitaliy Hamm Provider Yumikoibe Attestation: All medical record entries made by the Yumikoibever were at my direction and personally dictated by me. I have reviewed the chart and agree that the record accurately reflects my personal performance of the history, physical exam, medical decision making, and the department course for this patient. I have also personally directed, reviewed, and agree with the discharge instructions and disposition. Disposition/Present on Arrival - Present on Arrival Any Indicators Present on Arrival: Yes History of DVT/PE: No History of Uncontrolled Diabetes: Yes Urinary Catheter: No History of Decub. Ulcer: No History Surgical Site Infection Following: None - Disposition Have Diagnosis and Disposition been Completed?: Yes Diagnosis: Gastroparesis, Dehydration Disposition: HOSPITALIZED Disposition Time: 09:55 Patient Plan: Admission Condition: GUARDED
[2017-04-08 08:54] LABS: ALB/GLOB RATIO 1.2 (1.1-1.8); ALKALINE PHOSPHATASE 125 U/L (38-133); ALT/SGPT 42 U/L (7-56); AST/SGOT 27 U/L (15-39); BILIRUBIN,TOTAL 1.5 mg/dL (0.2-1.3); BLOOD UREA NITROGEN 17 mg/dL (7-21); CALCIUM 9.9 mg/dL (8.4-10.5); CARBON DIOXIDE 19 mmol/L (21-33); CHLORIDE 103 mmol/L (98-107); GFR AFRICAN-AMERICAN > 60; LIPASE 33 U/L (23-300); POTASSIUM 4.7 mmol/L (3.6-5.0); SODIUM 138 mmol/L (132-148); TOTAL PROTEIN 8.1 g/dL (5.8-8.3)
[2017-04-08 08:55] LABS: BASO # 0.01 K/mm3 (0.0-2.0); BASO % 0.1 % (0.0-3.0); GRAN # 7.65 (1.4-6.5); GRAN % 84.2 % (50.0-68.0); HEMATOCRIT 29.1 % (36.0-48.0); LYMPH % 11.1 % (22.0-35.0); MEAN CELL VOLUME 82.4 fL (80.0-105.0); MEAN CORPUSCULAR HEMOGLOBIN 27.5 pg (25.0-35.0); MEAN CORPUSCULAR HGB CONC 33.3 g/dl (31.0-37.0); MEAN PLATELET VOLUME 8.8 fl (7.0-11.0); MONO # 0.4 (0.1-0.6); MONO % 4.6 % (1.0-6.0); PLATELET COUNT 442 10^3/uL (120.0-450.0); RED CELL DISTRIBUTION WIDTH 16.9 % (11.5-14.5); WHITE BLOOD COUNT 9.1 10^3/ul (4.5-11.0)
[2017-04-08 09:11] LABS: URINE BILIRUBIN NEGATIVE (NEGATIVE); URINE BLOOD TRACE-LYSED (NEGATIVE); URINE GLUCOSE (UA) >=1000 mg/dL (NEGATIVE); URINE KETONE >=80 mg/dL (NEGATIVE); URINE LEUKOCYTE ESTERASE NEGATIVE Leu/uL (NEGATIVE); URINE PROTEIN 30 mg/dL (<30 mg/dL); URINE UROBILINOGEN 0.2 E.U./dL (<1 E.U./dL)
[2017-04-08 09:12] LABS: URINE APPEARANCE CLEAR (CLEAR); URINE COLOR YELLOW (YELLOW)
[2017-04-08 09:47] LABS: URINE RBC 0 - 2 /hpf (0-2); URINE WBC 0 - 2 /hpf (0-6)
[2017-04-08 09:48] LABS: URINE BACTERIA FEW (NEG)
[2017-04-08 10:06] LABS: GLUCOSE,RANDOM 357 mg/dL (70-110)
[2017-04-08] MEDS ORDERED: Morphine 2 mg/ml ISec IVP PRN (12:29)
[2017-04-08] MEDS ORDERED: Morphine 2 mg/ml ISec ONE (12:35)
[2017-04-08] MEDS: Morphine 2 mg/ml ISec IVP PRN ×3 (12:40→21:06)
[2017-04-08] MEDS ORDERED: Sodium Chloride 0.45% 1,000 ML IV SCH (12:45)
--- NOTE | 2017-04-08 12:55 | CARD ---
APPROVED REPORT EKG Measurement Heart [id number] <Conclusion> Sinus tachycardia Possible Left atrial enlargement Borderline ECG
[2017-04-08] MEDS ORDERED: Pneumococcal 23-Valent Vaccine IM ONE (13:03)
--- NOTE | 2017-04-08 14:48 | RAD ---
HISTORY: abdominal pain, vomiting COMPARISON: 03/20/2017 FINDINGS: LUNGS: No active pulmonary disease. PLEURA: No significant pleural effusion identified, no pneumothorax apparent. CARDIOVASCULAR: Normal. OSSEOUS STRUCTURES: No significant abnormalities. VISUALIZED UPPER ABDOMEN: Normal. OTHER FINDINGS: None. IMPRESSION: No active disease.
[2017-04-08] MEDS: Insulin Reg-HIGH-Coverage SC SCH ×2 (16:57→23:52)
--- NOTE | 2017-04-08 19:09 | HP ---
I know the patient very well from multiple admissions and we had a plan with the road freight conductor at [facility]. She did not make it there. She came to [place]. She tells me she has an appointment with a doctor at [facility] on . She comes in with abdominal pain with nausea, vomiting, nonbilious. This is a 42-year-old female with past medical history of 3 days of nausea, vomiting, cannot stop the pain, has a history of gastroparesis, diabetes, hypertension, gastritis, gastric duodenal ulcers, GERD. She is here again with nausea, vomiting and abdominal pain. She has hypertension. She has neuropathy. She has been a DKA in the past. History of diabetic foot ulcers, gastritis, gastroparesis reflux, duodenal ulcers, anxiety. FAMILY HISTORY: There is hypertension and diabetes in the family. SOCIAL HISTORY: She never smoked. No alcohol, no drugs. ALLERGIES: SHE IS ALLERGIC TO REGLAN. MEDICATIONS: She takes a fair amount of medications. At home, she is on Colace , iron, insulin, Levemir, pantoprazole, tramadol, Zofran, Ativan, Carafate, Lopressor, Norvasc. I put her back on most of her medications, the road freight conductor and travel counselor to help us. REVIEW OF SYSTEMS: No vision changes, no hearing changes. A little dry throat ; she has been throwing up. No chest pain, no shortness of breath. Lots of abdominal pain, nausea, vomiting. No diarrhea. She is urinating okay. No arms or leg pains. Very uncomfortable. PHYSICAL EXAMINATION: VITAL SIGNS: She has a 98.2 temp, 134 pulse, 18 respiratory rate, 180/93 blood pressure, 100% O2 sat on room air. HEENT: Head is atraumatic, normocephalic. Extraocular muscles are intact. Pupils reactive to light. Throat is dry at this time. NECK: Supple, no JVD. HEART: Regular rate. LUNGS: Decreased breath sounds, but clear to auscultation. ABDOMEN: Mildly distended. Mild guarding. No rebound. Tender all over. No back tenderness to palpation. No CVA tenderness. EXTREMITIES: No edema. SKIN: Intact. NEUROLOGIC: Alert and oriented x 3. GCS is 15. Cranial nerves II-XII grossly intact. Thyroid midline. No palpable lymphadenopathy. LABORATORY DATA: She has a chest x-ray and EKG which are pending. Urine is clean, not . A 138 sodium, potassium 4.7, BUN 17, creatinine 0.8, GFR is greater than 60. Blood sugars of 357, should be on coverage. IV fluids and insulin coverage. Liver is okay. Lipase is 33, white count is 9.1, hemoglobin 9.7, hematocrit 29.1, platelets 442. PLAN: We will continue with her current treatment, which is IV fluids, pain meds, anti-nausea, PPI. Get gastrointestinal and endocrinology to see her, and hopefully, she will calm down and improve and we can get her up to go to [facility] appointment. She is here for gastroparesis, abdominal pain, nausea, vomiting, diabetes. David Theodore DO cc: [id number] TT: 04/08/2017 19:09:05 angie SYLVESTER
[2017-04-08] MEDS ORDERED: Dextrose 50% SYRINGE Inj (50 ml) ONE (20:48)
[2017-04-08] MEDS: Dextrose 5%/0.45% NS 1,000 ML IV SCH (23:25)
[2017-04-09] MEDS: Morphine 2 mg/ml ISec IVP PRN ×5 (01:08→19:51)
[2017-04-09 07:38] LABS: ALB/GLOB RATIO 1.1 (1.1-1.8); ALKALINE PHOSPHATASE 86 U/L (38-133); ALT/SGPT 39 U/L (7-56); AST/SGOT 30 U/L (15-39); BILIRUBIN,TOTAL 1.3 mg/dL (0.2-1.3); BLOOD UREA NITROGEN 15 mg/dL (7-21); CALCIUM 8.8 mg/dL (8.4-10.5); CARBON DIOXIDE 24 mmol/L (21-33); CHLORIDE 107 mmol/L (98-107); CHOLESTEROL 224 mg/dL (130-200); GFR AFRICAN-AMERICAN > 60; GLUCOSE,RANDOM 141 mg/dL (70-110); POTASSIUM 3.5 mmol/L (3.6-5.0); SODIUM 137 mmol/L (132-148); TOTAL PROTEIN 6.6 g/dL (5.8-8.3)
[2017-04-09 07:39] LABS: HEMATOCRIT 25.2 % (36.0-48.0); MEAN CELL VOLUME 82.4 fL (80.0-105.0); MEAN CORPUSCULAR HEMOGLOBIN 26.8 pg (25.0-35.0); MEAN CORPUSCULAR HGB CONC 32.5 g/dl (31.0-37.0); MEAN PLATELET VOLUME 8.5 fl (7.0-11.0); WHITE BLOOD COUNT 6.6 10^3/ul (4.5-11.0)
[2017-04-09] MEDS: Insulin Reg-LOW-Coverage SC SCH ×3 (09:40→17:13)
[2017-04-09] MEDS: Insulin Detemir 100 units/ml Vial (Levemir) SC SCH ×2 (09:40→23:00)
[2017-04-09 09:45] VITALS: RESP 20
[2017-04-09] MEDS: Potassium Chloride 20 mEq ER Tab PO ONE ×2 (09:46→10:03)
[2017-04-09] MEDS ORDERED: Potassium Chloride 20 mEq/15 ml LIQ UD PO STA (10:04)
--- NOTE | 2017-04-09 10:33 | CON ---
DATE: 04/09/2017 ROOM: 573 This is a 42-year-old female with known history of type 1 insulin-dependent diabetes, presenting here with diffuse abdominal pain and supervening nausea, dyspepsia, and intractable vomiting, and is now being referred for diabetic evaluation and management. PAST MEDICAL HISTORY: Significant history of diabetic gastroparesis with multiple admissions for exa cerbations of intractable vomiting episodes as noted. History of type 1 insulin-dependent diabetes o n a basal and bolus insulin drug combination of Levemir taken as 15 units at bedtime with regular ins ulin given as 8 units t.i.d. before meals, history of hypertensive cardiovascular disease and dyslipi demia, history of diabetic retinopathy and polyneuropathy as noted, history of generalized anxiety an d insomnia. FAMILY HISTORY: Positive for diabetes and hypertension. SOCIAL HISTORY: The patient has a supportive family. No known substance use. REVIEW OF SYSTEMS: As mentioned above, admits to generalized body weakness with easy fatigability an d tiredness and suboptimal energy level. Also admits to episodic dizziness and lightheadedness, wors e on the day of admission. No chest pains or palpitations or PNDs. Her oral intake is variable with nausea, dyspepsia and intractable vomiting episodes and supervening diffuse abdominal pain. PHYSICAL EXAMINATION: GENERAL: This is an average built female, in no apparent distress. VITAL SIGNS: Blood pressure of 140/80, pulse of 70 beats per minute, regular, temperature 98, respir ations 20, height is 5 feet 9 inches, weight is 153 pounds. HEENT: Head normocephalic. Eyes anicteric with ____ conjunctivae. Fundoscopy not possible at this time. Ears, nose and throat otherwise normal. NECK: Supple. Thyroid gland is normal in size. No carotid bruit or any cervical adenopathy. CARDIOPULMONARY: Some adynamic precordium. S1, S2 is rapid and regular. LUNGS: Clear to auscultation. ABDOMEN: Flat, soft with positive bowel sounds. EXTREMITIES: No peripheral edema. Pulses are +2 bilaterally. LABORATORIES: The chemistries showed a BUN of 17, sodium 138, potassium 4.7, chloride 103, CO2 19, g lucose 357 and creatinine 0.8. ASSESSMENT: This is a 42-year-old female with uncontrolled and decompensated type 1 insulin-dependen t diabetes, presenting here with intractable vomiting episodes and diffuse abdominal pain with nausea and dyspepsia as noted thereof and significant history of diabetic gastroparesis as noted. She also has diabetic microvascular complications of retinopathy and polyneuropathy as noted. PLAN OF MANAGEMENT: As discussed with the patient and the staff, we will add basal insulin with Leve frida given as 10 units subQ at 10 a.m. and 10 p.m. daily, even if she is n.p.o. as there is still ongo ing hepatic gluconeogenesis, especially in the light of underlying type 1 insulin-dependent diabetes, even with no food intake at this time. We will also modify the coverage scale to a low dose algorit hm using regular insulin to obviate hypoglycemia and detailed orders have been given. We will contin ue the IV fluids with dextrose infusion incorporated with D5 and half normal saline as ordered. We w ill continue the vigorous IV hydration also and obtain serial chemistries and supplement accordingly as needed. We will also obtain a serum cortisol and ACTH level also as a baseline screen for underly ing hypoadrenalism. We will obtain a hemoglobin A1c to confirm her prior glycemic control as noted. We will also initiate a combination of Levemir and regular insulin once oral intake is advanced to s olid food. We will follow. Tamara Campo MD cc: [id number] TT: 04/09/2017 10:15:39 Confirmation # [id number] Dictation # [id number] en 04/09/2017 09:33:05
--- NOTE | 2017-04-09 11:47 | PN ---
DATE: 04/09/2017 I saw her resting comfortably in her bed in room 573. She slept okay. She is rested and her face lo oks less distressed. She is still n.p.o., about 30% better, which is good. She is on Ativan, Benadryl, Carafate, dextrose at 60 mL an hour, insulin coverage, Levemir, also pota ssium replacement, metoprolol, morphine, amlodipine, Pepcid, Protonix, Zofran. PHYSICAL EXAMINATION: VITAL SIGNS: She has a 99 temp, 114 pulse, 146/86 blood pressure, 20 respiratory rate and 98% O2 sat on room air. HEENT: Head is atraumatic, normocephalic. HEART: Regular rate. LUNGS: Clear to auscultation with poor inspiration. ABDOMEN: Mildly distended, softer. Decreased bowel sounds are present. No guarding, no rebound, bu t mild discomfort. EXTREMITIES: Have no edema. She has a 6.6 white count, 8.2 hemoglobin, 25.2 hematocrit with 377 platelets. Sodium 137, potassium 3.5. We will replace the potassium. BUN 15, creatinine 0.7, GFR is greater than 60, sugar is 141. Calcium is 8.8, total bili 1.3, AST is 30, ALT is 39, alk phos 86, total protein 6.6, albumin 3.4, g lobulin 3.1. Cholesterol was 224. TSH is 0.94. She is being seen by myself so far. There are consults with endocrinology and GI. We will continue with aggressive treatment and care, IV fluids, keep her n.p.o. until GI sees her, rest the abdomen fo r the pain. She has gastroparesis, diabetes, nausea, vomiting, abdominal pain. Hopefully, she will improve. We can start to increase her diet after GI lets us know. David Theodore DO cc: [id number] TT: 04/09/2017 11:46:35 Confirmation # [id number] Dictation # [id number] en
[2017-04-09] MEDS: Dextrose 5%/0.45% NS 1,000 ML IV SCH (14:00)
[2017-04-09 14:38] LABS: CORTISOL AM 9.1 ug/dL (4.46-22.7)
[2017-04-09] MEDS: Sucralfate 1 gm/10 ml Oral Susp UD PO SCH (17:15)
--- NOTE | 2017-04-09 18:52 | CON ---
DATE: 04/09/2017 This patient was seen and evaluated earlier today. Discussed with nursing staff. This is a 42-year-old patient with insulin-dependent diabetes mellitus, severe gastroparesis. Recently in the hospital and discharged, was admitted again with episodes of abdominal pain, nausea, vomiting. The patient was being followed by the [facility] [place], but there was some issue in the followup of the insurance. The patient subsequently had made an appointment to be seen by Dr. Duran at [facility]. The patient has an appointment next week to follow up. Meanwhile, the patient got an episode of vomiting and admitted again. The patient also has a history of anemia, history of Grave's disease, esophageal ulcerations. Other past medical history significant for diabetes mellitus. PAST MEDICAL HISTORY: Significant as above, multiple admissions for DKA. FAMILY HISTORY: Noncontributory. ALLERGIES: REGLAN. SOCIAL HISTORY: Denies smoking or alcohol. REVIEW OF SYSTEMS: Positive as above. Other systems reviewed. PHYSICAL EXAMINATION: GENERAL: The patient is lying on the bed, not in acute distress. VITAL SIGNS: Pulse 85 per minute, blood pressure is 149/85, respirations 20, O2 saturation is 98%. HEENT: Atraumatic, anicteric. NECK: Supple. HEART: S1, S2 heard. LUNGS: Bilateral air entry present. ABDOMEN: Soft. There is mild tenderness present at the epigastric area. EXTREMITIES: No edema, no cyanosis. NEUROLOGIC: Alert, oriented. Moves all the extremities. LABORATORY DATA: Hemoglobin 8.2, hematocrit 25.2, WBC 6.6, platelets 377, and potassium 3.5. IMPRESSION/PLAN: This is a 42-year-old patient with recurrent DKA, insulin- dependent diabetes mellitus, admission for severe gastroparesis, status post Botox injections in the past who had a complicated gastroparesis, grade C esophageal ulcerations on PPI, history of anemia. The patient has an appointment to be seen at the [facility]. Would recommend to follow once the patient is optimized. The patient advised to keep the appointment to be followed up there. She would benefit from repeating the endoscopy and also colonoscopy at the same time. At the present time, the concern is readmission hospitalization, the patient is becoming very difficult to prepare because of the constant nausea and vomiting, unable to keep the food down. Once he is optimized, the reasonable thing is to prepare the patient for colonoscopy and endoscopy at the same time. Meanwhile, continue the PPI. Slowly advance the diet as the patient is tolerating. The patient has been taking only pureed diet at home. Advised to continue that. Thank you very much for allowing us to participate in the care of the patient. Bev Gomez MD cc: [id number] TT: 04/09/2017 18:51:38 Confirmation # [id number] Dictation # [id number] angie SYLVESTER
[2017-04-10] MEDS: Insulin Reg-LOW-Coverage SC SCH ×5 (00:58→21:26)
[2017-04-10] MEDS: Morphine 2 mg/ml ISec IVP PRN ×6 (01:16→23:14)
[2017-04-10] MEDS: Sucralfate 1 gm/10 ml Oral Susp UD PO SCH ×2 (08:22→17:19)
[2017-04-10 08:35] LABS: HEMATOCRIT 27.6 % (36.0-48.0); MEAN CELL VOLUME 82.1 fL (80.0-105.0); MEAN CORPUSCULAR HEMOGLOBIN 27.1 pg (25.0-35.0); MEAN PLATELET VOLUME 8.6 fl (7.0-11.0); RED CELL DISTRIBUTION WIDTH 16.5 % (11.5-14.5); WHITE BLOOD COUNT 5.2 10^3/ul (4.5-11.0)
--- NOTE | 2017-04-10 08:58 | PN ---
DATE: 04/10/2017 She is doing a little bit better, less nauseousness, although the nauseous bucket is next her. She s lept fairly well. She is being seen by GI and endocrinology VITAL SIGNS: Today are 99.4 temp, 106 pulse, 141/79 blood pressure, 20 respiratory rate, 100% O2 sat on room air. MEDICATIONS: She is currently on Ativan, Carafate, dextrose, insulin, Levemir, Lopressor, morphine, Norvasc, Pepcid, Protonix, Toradol. PHYSICAL EXAMINATION: HEAD: Atraumatic, normocephalic. HEART: Regular rate. LUNGS: Decreased breath sounds, but clear. ABDOMEN: Soft, positive bowel sounds. No guarding. EXTREMITIES: No edema. She is weak and uncomfortable. She is being seen by endocrinology and GI. I am going to increase the diet today to clears. If she does well, we will increase it until we get to pureed, and hopefully, in the next day or 2 we can dis charge her. She has an appointment on with her [facility] doctor, which is important. I want he r to make that appointment. Hopefully, she will. Continue with aggressive treatment and care. She is here for abdominal pain, nausea, vomiting, diabetes, gastroparesis. David Theodore DO cc: [id number] TT: 04/10/2017 08:57:05 Confirmation # [id number] Dictation # [id number] jn
[2017-04-10] MEDS: Insulin Detemir 100 units/ml Vial (Levemir) SC SCH (09:11)
--- NOTE | 2017-04-10 09:12 | PN ---
DATE: 04/09/2017 ROOM: 573 This is a 42-year-old female with recent uncontrolled type 1 insulin-dependent diabetes, presenting h ere with acute exacerbation of diabetic gastroparesis with supervening nausea, dyspepsia and intracta ble vomiting and is now being referred and followed for diabetic evaluation and management. She is c urrently n.p.o. at this time with ongoing dextrose infusion as given. Her glycemic levels are fluctuating with today's glucose values ranging from 175-153 and 161 mg/dL. Her latest chemistries showed a BUN of 15, sodium 137, potassium 3.5, chloride 107, CO2 of 24, glucos e 141, and creatinine 0.7. So at this time, will continue the low-dose basal insulin given as Levemir at 10 units subQ every 12 hours at 10 a.m. and 10 p.m. daily as given, even if she is n.p.o. as noted. There is still ongoing hepatic gluconeogenesis with elevated glycemic levels even if the patient is n.p.o., so the need to c over with at least basal insulin. Tamara Campo MD cc: [id number] TT: 04/09/2017 14:09:56 Confirmation # [id number] Dictation # [id number] angie
[2017-04-10] MEDS: Potassium Chloride 20 mEq ER Tab PO SCH ×2 (09:14→09:19)
--- NOTE | 2017-04-10 11:17 | PN ---
DATE: 04/10/2017 GI FOLLOWUP NOTE Seen and examined at the bedside this morning. The patient is still having some abdominal discomfort, but a little bit better. Does have nausea, but decreased, some abdominal discomfort. Denies any shortness of breath or chest pain. No fever or chills. VITAL SIGNS: Temperature is 98.1, blood pressure 144/83, pulse 111, respirations 20, 98 on room air. LABORATORY DATA: WBC is 5.2, hemoglobin 9.1, hematocrit 27.6, platelets of 363. Urine culture was negative. PHYSICAL EXAMINATION: HEENT: Sclerae are anicteric. NECK: Supple. CARDIAC: S1, S2. LUNGS: Decreased breath sounds, but good air entry. No rales or wheeze. ABDOMEN: With bowel sounds, soft. Mild tenderness in epigastric area, but no rebound or guarding. ASSESSMENT: A 42-year-old female with recurrent diabetic ketoacidosis, history of insulin-dependent diabetes mellitus with severe gastroparesis, history of Botox injections in the past, history of grade III esophageal ulcerations and anemia. PLAN: The patient's diet advanced to clear liquids. Continue Protonix q. 12. She is also on Zofran p.r.n. Her potassium was a little bit low, and she is receiving potassium replacement. She is also on Carafate, on insulin coverage, and is getting Pepcid. We will decrease patient's Protonix from q. 12 to daily in the a.m., and then she is getting Pepcid in the evening. She is also on Carafate. Continue IV fluids for hydration. She has an appointment with __ ___ this at [facility], advised to keep that appointment. Hopefully, she will be discharged prior to, and again, she would benefit from repeat endoscopy and colonoscopy at the same time. Advance diet as tolerated up to puree. Would recommend puree when she is ready, which she has been taking at home. The patient was seen and case discussed with Dr. Gomez. Samantha YEN cc: [id number] TT: 04/10/2017 11:17:07 Confirmation # [id number] Dictation # [id number] jn MTDD
[2017-04-10] MEDS: Insulin Lispro 1 UNITS/0.01 ML SC SCH (16:34)
--- NOTE | 2017-04-10 18:22 | CP.PCM.PN ---
Subjective - Date & Time of Evaluation Date of Evaluation: 04/10/17 Time of Evaluation: 18:20 - Subjective Subjective: Patient has very poor veins,needs iv access Objective - Vital Signs/Intake and Output Vital Signs (last 24 hours): Temp Pulse Resp BP Pulse Ox 98.1 F 99 H 20 139/82 98 04/10/17 07:30 04/10/17 17:19 04/10/17 07:30 04/10/17 17:19 04/10/17 07:30 Intake and Output: 04/10/17 04/10/17 06:59 18:59 Intake Total 1440 1000 Output Total 0 Balance 1440 1000 - Medications Medications: Current Medications Amlodipine Besylate (Norvasc) 5 mg PO DAILY [facility] Last Admin: 04/10/17 09:10 Dose: 5 mg Famotidine (Pepcid) 20 mg IVP DAILY [facility] Dextrose/Sodium Chloride (Dextrose 5%/0.45% Ns 1000 Ml) 1,000 mls @ 60 mls/hr IV .[id number] [facility] Last Admin: 04/09/17 14:00 Dose: 60 mls/hr Insulin Detemir (Levemir) [address] [facility] Insulin Human Lispro (Humalog) 4 units SC AC [facility] Last Admin: 04/10/17 16:34 Dose: Not Given Insulin Human Regular (Humulin R Low) 0 units SC [facility] PRN Reason: Protocol Last Admin: 04/10/17 16:34 Dose: Not Given Ketorolac Tromethamine (Toradol) 30 mg IVP Q8H PRN PRN Reason: Pain, moderate (4-7) Last Admin: 04/08/17 10:03 Dose: 30 mg Lorazepam (Ativan) 0.5 mg PO BID [facility] PRN Reason: Protocol Last Admin: 04/10/17 17:19 Dose: 0.5 mg Metoprolol Tartrate (Lopressor) 25 mg PO BID [facility] Last Admin: 04/10/17 17:19 Dose: 25 mg Morphine Sulfate (Morphine) 1 mg IVP Q4H PRN PRN Reason: Pain, moderate (4-7) Last Admin: 04/10/17 17:46 Dose: 1 mg Ondansetron HCl (Zofran Inj) 4 mg IVP Q4H PRN PRN Reason: Nausea/Vomiting Last Admin: 04/09/17 09:52 Dose: 4 mg Pantoprazole Sodium (Protonix Inj) 40 mg IVP DAILY [facility] Potassium Chloride (K-Dur 20 Meq Er Tab) 20 meq PO BRK [facility] Last Admin: 04/10/17 09:19 Dose: Not Given Sucralfate (Carafate Oral Susp) 1 gm PO ACBD [facility] Last Admin: 04/10/17 17:19 Dose: 1 gm - Labs Labs: 04/10/17 07:50 04/09/17 07:00 - Constitutional Appears: No Acute Distress Assessment and Plan - Assessment and Plan (Free Text) Assessment: Poor venous access. Plan: Hep lock inserted in the L hand. # 24 angiocath used.
[2017-04-10 20:06] VITALS: O2SAT 100
[2017-04-10] MEDS ORDERED: Insulin Detemir 100 units/ml Vial (Levemir) SC SCH (22:00)
--- NOTE | 2017-04-11 00:29 | PN ---
DATE: 04/10/2017 ADDENDUM: SUBJECTIVE: This patient was seen and evaluated earlier today. This is an addendum to the GI progre ss report dictated by Samantha Webb APN. The patient still has some episodes of vomiting. We will sl owly advance the diet to pureed diet. The patient has an appointment to be followed. PHYSICAL EXAMINATION: ABDOMEN: Soft. There is a mild tenderness in the epigastric area. IMPRESSION: Severe gastroparesis, insulin-dependent diabetes mellitus, anemia, esophageal ulce rations. PLAN: Continue the PPI, followup of the hemoglobin, hematocrit and slowly advance the diet. The doris serrato wants to follow up at the [facility]. Thank you very much for allowing us to participate in the care of the patient. Bev Gomez MD cc: [id number] TT: 04/11/2017 00:29:00 Confirmation # [id number] Dictation # [id number] mn
[2017-04-11 08:19] VITALS: PULSE 86; TEMP 98.5
--- NOTE | 2017-04-11 08:22 | PN ---
DATE: 04/10/2017 ROOM: 573 This is a 42-year-old female with recent uncontrolled type 1 insulin-dependent diabetes, presenting h ere with intractable vomiting with associated nausea, dyspepsia and diffuse abdominal pain and has be en evaluated to have exacerbation of diabetic gastroparesis and is now being followed closely for met abolic management. Her glycemic levels are fluctuating as noted and have ranged from 213-281 mg/dL. It was 174-230 at bedtime last night. Her latest chemistries showed a BUN of 15, sodium 137, potass ium 3.5, chloride 107, CO2 of 24, glucose 141, and creatinine 0.7. Her cortisol level is 9.1 with an ACTH of less than 5 and a TSH of ____. So, at this time, as she has been advanced to liquid diet, we will start her now on a low dose of pra ndial insulin with Humalog to be given at 4 units subQ t.i.d. before meals to start at dinnertime tod ay as ordered. We will titrate incrementally as indicated to optimize metabolic control and also as her oral intake is advanced to solid foods ____. ____ obtain serial chemistries and supplement ____ as needed. We will also switch her over Levemir now from the Levemir 10 q.12 to Levemir 14 units at bedtime daily ____. We will follow. Tamara Campo MD cc: [id number] TT: 04/10/2017 16:52:56 Confirmation # [id number] Dictation # [id number] sn
[2017-04-11] MEDS: Sucralfate 1 gm/10 ml Oral Susp UD PO SCH (08:23)
[2017-04-11] MEDS: Insulin Reg-LOW-Coverage SC SCH ×2 (08:23→11:51)
[2017-04-11] MEDS: Insulin Lispro 1 UNITS/0.01 ML SC SCH ×2 (08:25→11:50)
[2017-04-11 09:12] LABS: HEMATOCRIT 27.8 % (36.0-48.0); MEAN CELL VOLUME 80.3 fL (80.0-105.0); MEAN CORPUSCULAR HEMOGLOBIN 26.9 pg (25.0-35.0); MEAN CORPUSCULAR HGB CONC 33.5 g/dl (31.0-37.0); MEAN PLATELET VOLUME 8.5 fl (7.0-11.0); RED CELL DISTRIBUTION WIDTH 16.3 % (11.5-14.5); WHITE BLOOD COUNT 5.8 10^3/ul (4.5-11.0)
[2017-04-11 09:13] LABS: ALB/GLOB RATIO 1.1 (1.1-1.8); ALKALINE PHOSPHATASE 89 U/L (38-133); ALT/SGPT 33 U/L (7-56); AST/SGOT 25 U/L (15-39); BLOOD UREA NITROGEN 4 mg/dL (7-21); CALCIUM 9.1 mg/dL (8.4-10.5); CARBON DIOXIDE 25 mmol/L (21-33); CHLORIDE 104 mmol/L (95-110); GFR AFRICAN-AMERICAN > 60; GLUCOSE,RANDOM 164 mg/dL (70-110); POTASSIUM 3.5 mmol/L (3.6-5.0); SODIUM 135 mmol/L (132-148); TOTAL PROTEIN 6.8 g/dL (5.8-8.3)
[2017-04-11] MEDS ORDERED: Bacitracin Ointment 30 GM TUBE TOP SCH (10:00)
[2017-04-11] MEDS: Potassium Chloride 20 mEq ER Tab PO SCH (10:04)
[2017-04-11 10:09] VITALS: BP 144/85
--- NOTE | 2017-04-11 12:20 | DS ---
I see her resting comfortably in bed. She is taking the clear fluids well. I discussed with GI. We can increase to a regular diet. If she does well, we are going to discharge her this afternoon. I am hoping we can do that. She should be able to go. She came in for abdominal pain, nausea, vomitin g, gastroparesis. She has an appointment [facility] on . PHYSICAL EXAMINATION: VITAL SIGNS: 98.5 temp, 86 pulse, 95/60 blood pressure, 20 respiratory rate, 100% O2 sat on room air . HEENT: Head is atraumatic, normocephalic. Throat is moist. NECK: Supple. HEART: Regular rate. LUNGS: Clear to auscultation. ABDOMEN: Soft, positive bowel sounds, nontender. EXTREMITIES: No edema. MEDICATIONS: She will go home on Ativan, bacitracin, Carafate, insulin, potassium, Levemir, Lopresso r, Norvasc, Pepcid, Protonix, tramadol, and Zofran. LABORATORY DATA: She has a 5.8 white count, 9.3 hemoglobin, 27.8 hematocrit with 386 platelets, 135 sodium, potassium is 3.5, better. BUN 4, creatinine 0.7, GFR is greater than 60, sugar is 164, calci um is 9.1, total bili is 1, AST is 25, ALT is 33, alk phos 89, total protein 6.8, albumin is 3.6. She is being seen by gastroenterology who said she can go home. Her blood sugars are good. She will follow up at [facility] on . It is a very important appointment. Hopefully, she will eat well a nd be discharged later today. David Theodore DO cc: [id number] TT: 04/11/2017 12:20:23 ok
--- NOTE | 2017-04-11 13:09 | PN ---
DATE: 04/11/2017 GI FOLLOWUP NOTE Seen and examined at the bedside. Abdominal pain is better. She has not had a bowel movement, but does report gas. Would like to have more food. She is going to be started on pureed diet. No new complaints. No reports of any overt GI bleed. VITAL SIGNS: Temperature is 98.5. Blood pressure is 144/85, pulse 86, respirations 20, 100 on room air. LABORATORY DATA: WBC 5.8, hemoglobin 9.3, hematocrit 27.8, platelets of 386. Sodium 135, K 3.5, BUN 4, creatinine 0.7. LFTs are within normal limits. PHYSICAL EXAMINATION: HEENT: Sclerae are anicteric. NECK: Supple. CARDIAC: S1, S2. LUNGS: Lungs sound clear. ABDOMEN: With bowel sounds, soft, not much tenderness on palpation. No rebound or guarding. ASSESSMENT/PLAN: Status post diabetic ketoacidosis. The patient has history of insulin-dependent diabetes and severe gastroparesis, history of grade III esophageal ulcerations and anemia. Abdominal pain is improving, as well as the nausea. Her diet has advanced to a pureed heart-healthy diet. Continue Pepcid in the evening and Protonix in the morning, is on IV fluids for hydration, and on Carafate. If tolerates oral intake, will likely be discharged home and discussed with the patient to follow up at [facility]. She has an appointment this . The patient was seen and case discussed with Dr. Gomez. Samantha YEN cc: [id number] TT: 04/11/2017 13:08:53 Confirmation # [id number] Dictation # [id number] jn MTDRuth Ann
--- NOTE | 2017-04-11 18:10 | PN ---
DATE: 04/11/2017 ROOM: 573 This is a 42-year-old female with recent uncontrolled type 1 insulin-dependent diabetes, now being fo llowed closely for metabolic management. Her glycemic levels are fluctuating, and she is currently o nly on a liquid time, because of the underlying diabetic gastroparesis and for dyspepsia, nause a and vomiting. Her glucose values today have ranged from 67-141 mg/dL. Her latest chemistries show ed a BUN of 4, sodium 135, potassium 3.5, chloride 100, CO2 of 25, glucose 164, and creatinine 0.7. So, at this time, we will continue the modified basal and bolus insulin regimen with Levemir given as 14 units subQ at bedtime daily as ordered. We will continue the Humalog given as 4 units subQ t.i.d . before meals. We will titrate incrementally as indicated to optimize metabolic control. We will f ollow. Tamara Campo MD cc: [id number] TT: 04/11/2017 18:09:27 Confirmation # [id number] Dictation # [id number] angie
== END 2017-04-11 17:24 | disposition home or self-care (01) | DRG 18 ==
LOC: ED 08:03 → ERH 10:01 → 2RNO 12:45 → 5RSO 15:29
PROVIDERS: ADMIT Family Medicine; ATTEND Family Medicine
DX: E11.43 Type 2 diabetes mellitus with diabetic autonomic (poly)neuropathy (principal); K31.84 Gastroparesis; E86.0 Dehydration; I11.9 Hypertensive heart disease without heart failure; K22.10 Ulcer of esophagus without bleeding; E11.319 Type 2 diabetes mellitus with unspecified diabetic retinopathy without macular edema; K29.70 Gastritis, unspecified, without bleeding; K21.9 Gastro-esophageal reflux disease without esophagitis; E11.40 Type 2 diabetes mellitus with diabetic neuropathy, unspecified; F41.1 Generalized anxiety disorder; E78.5 Hyperlipidemia, unspecified; D64.9 Anemia, unspecified; Z79.4 Long term (current) use of insulin

== ENCOUNTER 2017-05-11 11:16 | Inpatient (IN) | payer MEDICAID ==
[2017-05-11 11:16] VITALS: BMI 22.6
--- NOTE | 2017-05-11 11:31 | ED PDOC ---
Arrival/HPI - General Chief Complaint: Abdominal Pain Time Seen by Provider: 05/11/17 11:23 Historian: Patient - History of Present Illness Narrative History of Present Illness (Text): 05/11/17 11:35 A 42 year old female, whose past medical history includes gastropararesis, gastritis, gastric doudenal ulcers, hypertension, and diabetes mellitus, who presents to the emergency department complaining of epigastric pain that began 4 days ago. Pain is non radiating and associated with nausea and vomiting. Patient can't tolerate any food or liquids. Patient denies any diarrhea, bloody stool, fever, chills, or any other complaints at this time. Patient reports she has been taking medication that have been prescribed to her by her PMD but it has not brought her any relief. PMD: Dr. Theodore Time/Duration: Other (4 days ago ) Symptom Onset: Gradual Symptom Course: Unchanged Quality: Other ("pain") Activities at Onset: Rest Modifying Factors (Text): no relief with medication Context: Home Associated Symptoms (Text): nausea, vomiting and inability to tolerate PO Past Medical History - Provider Review Nursing Documentation Reviewed: Yes - Infectious Disease Hx of Infectious Diseases: None - Tetanus Immunization Tetanus Immunization: Unknown - Past Medical History Past Medical History: No Previous - Cardiac Hx Cardiac Disorders: Yes Hx Hypertension: Yes - Pulmonary Hx Respiratory Disorders: No - Neurological Hx Neurological Disorder: Yes (NEUROPATHY) Other/Comment: pt rubbing her right flank leaving riggins on her skin. Mother stated "She has a nervous condition, cause unknown." - HEENT Hx HEENT Disorder: Yes Other/Comment: wears glasses-nearsighted - Renal Hx Renal Disorder: No - Endocrine/Metabolic Hx Diabetes Mellitus Type 1: Yes (hx DKA) - Hematological/Oncological Hx Anemia: Yes - Integumentary Hx Dermatological Disorder: Yes (hx diabetic foot ulcers) Other/Comment: multiple skin discolorations ble - Musculoskeletal/Rheumatological Hx Falls: No - Gastrointestinal Hx Gastrointestinal Disorders: Yes (gastritis,gastroparesis) Hx Gastroesophageal Reflux: Yes Other/Comment: duodenal and gastric ulcers, esophageal ulcerations - Genitourinary/Gynecological Hx Urinary Tract Infection: Yes - Psychiatric Hx Substance Use: No - Past Surgical History Past Surgical History: No Previous - Surgical History Hx Cardiac Catheterization: No - Anesthesia Hx Anesthesia: No Hx Anesthesia Reactions: No Hx Malignant Hyperthermia: No - Suicidal Assessment Feels Threatened In Home Enviroment: No Family/Social History - Physician Review Nursing Documentation Reviewed: Yes Family/Social History: Unknown Family HX Smoking Status: Never Smoked Hx Alcohol Use: No Hx Substance Use: No Hx Substance Use Treatment: No Allergies/Home Meds Allergies/Adverse Reactions: Allergies metoclopramide HCl [From Reglan] Adverse Reaction (Verified 05/11/17 11:32) VOMITING Home Medications: Home Meds Medication Instructions Recorded Confirmed Insulin Detemir [Levemir] 15 unit SC HS 05/11/17 05/11/17 Review of Systems - Physician Review All systems were reviewed & negative as marked: Yes - Review of Systems Constitutional: absent: Fevers Cardiovascular: absent: Chest Pain Gastrointestinal: Abdominal Pain, Nausea, Vomiting, Food Intolerance. absent: Stool Changes, Diarrhea, Hematochezia Physical Exam Vital Signs Reviewed: Yes Vital Signs Temp Pulse Resp BP Pulse Ox 05/11/17 11:16 98.1 F 114 H 18 146/93 H 100 Temperature: Afebrile Blood Pressure: Hypertensive Pulse: Tachycardic Respiratory Rate: Normal Appearance: Positive for: Well-Appearing, Non-Toxic, Uncomfortable Pain Distress: None Mental Status: Positive for: Alert and Oriented X 3 - Systems Exam Head: Present: Atraumatic, Normocephalic Pupils: Present: PERRL Extroacular Muscles: Present: EOMI Conjunctiva: Present: Normal Mouth: Present: Dry Neck: Present: Normal Range of Motion Respiratory/Chest: Present: Clear to Auscultation, Good Air Exchange. No: Respiratory Distress, Accessory Muscle Use Cardiovascular: Present: Normal S1, S2, Tachycardic (epigastric). No: Murmurs Abdomen: Present: Tenderness (epigastri), Normal Bowel Sounds, Guarding. No: Distention, Peritoneal Signs, Rebound Back: No: CVA Tenderness, Midline Tenderness, Paraspinal Tenderness Upper Extremity: Present: Normal Inspection. No: Cyanosis, Edema Lower Extremity: Present: Normal Inspection. No: Edema Neurological: Present: GCS=15, CN II-XII Intact, Speech Normal Skin: Present: Warm, Dry, Normal Color. No: Rashes Psychiatric: Present: Alert, Oriented x 3, Normal Insight, Normal Concentration Medical Decision Making ED Course and Treatment: 05/11/17 11:35 Impression: A 42 year old female with epigastric pain. Differential Diagnosis included but are not limited to: Gastroparesis vs. Gastritis vs. Pancreatitis Plan: -- EKG -- Chest X-Ray -- Labs -- Pepcid, Zofran and IV Fluids -- Reassess and disposition Prior Visits: Notes and results from previous visits were reviewed. The patient last presented to the emergency department on 04/08/17 for evaluation of abdominal pain. Progress Notes: EKG: Ordered, reviewed, and independently interpreted the EKG. Rate : BPM Rhythm : Sinus tachycardia Interpretation : No ST-segment elevations or depressions, no T-wave inversions, normal intervals. 05/11/17 11:[address] Theodore, who is aware and accepts the patient to his services for intractable abdominal pain, nausea and vomiting. Patients labs reviewed. IV line access obtained by mn via ultrasound guidance to right arm. - Lab Interpretations Lab Results: 05/11/17 13:20 05/11/17 13:20 Lab Results 05/11/17 13:20: pO2 45, VBG pH 7.29 L, VBG pCO2 53.0, VBG HCO3 25.5, VBG Total CO2 27.1, VBG O2 Sat (Calc) 81.8 H, VBG Base Excess -1.7 L, VBG Potassium 3.1 L , Sodium 137.0, Chloride 103.0, Glucose 161 H, Lactate 1.2, FiO2 21.0, Venous Blood Potassium 3.1 L 05/11/17 13:20: Sodium 136, Chloride 101, Potassium 3.4 L, Carbon Dioxide 23, Anion Gap 15, BUN 20, Creatinine 1.2, Est GFR ( Amer) > 60, Est GFR (Non- Af Amer) 50, Random Glucose 152 H, Calcium 9.9, Total Bilirubin 1.0, AST 20, ALT 17, Alkaline Phosphatase 89, Total Protein 7.9, Albumin 4.1, Globulin 3.8, Albumin/Globulin Ratio 1.1, Lipase 12 L 05/11/17 13:20: PT 11.0, INR 1.02, APTT 25.5 05/11/17 13:20: WBC 4.6 D, RBC 4.34, Hgb 11.7 L, Hct 35.3 L, MCV 81.3, MCH 27.0 , MCHC 33.1, RDW 17.2 H, Plt Count 262, MPV 9.3, Gran % 50.0, Lymph % (Auto) 33.4, [place] % (Auto) 12.9 H, Eos % (Auto) 3.5, Baso % (Auto) 0.2, Gran # 2.29, Lymph # 1.5, [place] # 0.6, Eos # 0.2, Baso # 0.01 I have reviewed the lab results: Yes - RAD Interpretation Radiology Orders: 05/11/17 11:49 CXR [CHEST PORTABLE] [RAD] Stat - Medication Orders Current Medication Orders: Amlodipine Besylate (Norvasc) 5 mg PO DAILY [facility] Pantoprazole Sodium (Protonix 40mg Ivpb) 40 mg in 100 mls @ 200 mls/hr IVPB 0600 [facility] Ketorolac Tromethamine (Toradol) 30 mg IVP Q6 PRN PRN Reason: Pain, moderate (4-7) Lorazepam (Ativan) 0.5 mg PO BID [facility] PRN Reason: Protocol Metoprolol Tartrate (Lopressor) 25 mg PO BID [facility] Ondansetron HCl (Zofran Inj) 4 mg IVP Q4H PRN PRN Reason: Nausea/Vomiting Discontinued Medications Famotidine (Pepcid) 20 mg IVP STAT STA Stop: 05/11/17 11:44 Sodium Chloride (Sodium Chloride 0.9%) 1,000 mls @ 1,000 mls/hr IV .Q1H STA Stop: 05/11/17 12:42 Ondansetron HCl (Zofran Inj) 4 mg IVP STAT STA Stop: 05/11/17 11:44 - Scribe Statement The provider has reviewed the documentation as recorded by the Vitaliy Man training under [facility] Provider Scribe Attestation: All medical record entries made by the Scribe were at my direction and personally dictated by me. I have reviewed the chart and agree that the record accurately reflects my personal performance of the history, physical exam, medical decision making, and the department course for this patient. I have also personally directed, reviewed, and agree with the discharge instructions and disposition. Disposition/Present on Arrival - Present on Arrival Any Indicators Present on Arrival: No History of DVT/PE: No History of Uncontrolled Diabetes: Yes Urinary Catheter: No History of Decub. Ulcer: No History Surgical Site Infection Following: None - Disposition Have Diagnosis and Disposition been Completed?: Yes Diagnosis: Nausea & vomiting, Abdominal pain, Dehydration Disposition: HOSPITALIZED Disposition Time: 11:48 Patient Plan: Admission Condition: FAIR Referrals: David Theodore DO [Primary Care Provider] - Follow up with primary
[2017-05-11] MEDS ORDERED: Sodium Chloride 0.9% 1,000 ML IV STA (11:43)
--- NOTE | 2017-05-11 12:24 | HP ---
I know the patient very well from multiple admissions to the hospital. She just had a procedure with a specialist I believe at [facility] where they injected possibly Botox or did a dilation of her esophagu s and she did well for 2 days. Now, she has intractable nausea and vomiting and not feeling well. S he cannot keep anything down. The mother called me twice in the past 18 hours about her situation. She finally got to the Emergency Room. She has lost a lot of weight from the last time I saw her. S he has nausea, vomiting, abdominal pain, very uncomfortable. IV fluids are running. She has been young ving this nausea and vomiting for the past 2 days. PAST MEDICAL HISTORY: History of gastroparesis, diabetes, hypertension, duodenal ulcers, gastritis, GERD. She has DKA in the past, diabetic foot ulcers, gastritis, reflux, gastroparesis. FAMILY HISTORY: Hypertension, diabetes in the family. SOCIAL HISTORY: She never smoked. No drugs. No alcohol. ALLERGIES: ALLERGIC TO REGLAN. MEDICATIONS: She takes Colace, iron, insulin, Levemir, pantoprazole, tramadol, Zofran, Ativan, Caraf ate, Lopressor, Norvasc. REVIEW OF SYSTEMS: She has no acute vision or hearing changes. Some sore throat from throwing up. No chest pain, no palpitations, no shortness of breath, no cough. There is lots of abdominal pain, l ots of nausea and vomiting. No diarrhea. She is urinating okay, but not much. No arms or leg pains . She could walk, but she is in pain in the abdomen, not feeling well. PHYSICAL EXAMINATION: VITAL SIGNS: 98.1 temp, the pulse was 114, blood pressure 146/93, respiratory rate is 18, 100% O2 sa t on room air. HEENT: Her head is atraumatic, normocephalic. Extraocular muscles are intact. Pupils equal, reacti ve to light and accommodation. Throat is dry. NECK: Supple, no JVD. HEART: Regular rate. LUNGS: Decreased breath sounds bilaterally, but clear to auscultation. ABDOMEN: Distended. There is guarding and there is mild rebound. No auditory bowel sounds anywhere . It is tender all over. Mild back pain too. EXTREMITIES: No edema of the extremities. SKIN: Intact. NEUROLOGIC: Alert and oriented x 3. GCS is 15. Cranial nerves II-XII grossly intact. Thyroid midl ine. No palpable lymphadenopathy. LABORATORY DATA: At this time, labs are pending, but they are ordered. CBC, PTT, SMA-20, lipase are all pending. There is a chest x-ray pending also. I called in gastroenterology, made her n.p.o., put her on IV fluids, IV Zofran, IV Protonix and we ar e going to watch her overnight and see what happens. She will need a CAT scan of the abdomen and pel vis also. I will discuss that with the Emergency Room doctor. The patient is having intractable nausea, vomiting, abdominal pain. David Theodore DO cc: [id number] TT: 05/11/2017 12:24:09 tn
[2017-05-11 13:43] LABS: ADD MANUAL DIFF? NO
[2017-05-11 13:51] LABS: VENOUS BLOOD GAS BASE EXCESS -1.7 mmol/L (0.0-2.0); VENOUS BLOOD PH 7.29 (7.32-7.43)
[2017-05-11 13:54] LABS: BASO # 0.01 K/mm3 (0.0-2.0); BASO % 0.2 % (0.0-3.0); EOS # 0.2 (0.0-0.7); EOS % 3.5 % (1.5-5.0); GRAN # 2.29 (1.4-6.5); HEMATOCRIT 35.3 % (36.0-48.0); LYMPH # 1.5 (1.2-3.4); LYMPH % 33.4 % (22.0-35.0); MEAN CELL VOLUME 81.3 fL (80.0-105.0); MEAN CORPUSCULAR HGB CONC 33.1 g/dl (31.0-37.0); MEAN PLATELET VOLUME 9.3 fl (7.0-11.0); MONO # 0.6 (0.1-0.6); MONO % 12.9 % (1.0-6.0); PLATELET COUNT 262 10^3/uL (120.0-450.0); RED CELL DISTRIBUTION WIDTH 17.2 % (11.5-14.5); WHITE BLOOD COUNT 4.6 10^3/ul (4.5-11.0)
[2017-05-11 13:56] LABS: ALB/GLOB RATIO 1.1 (1.1-1.8); ALKALINE PHOSPHATASE 89 U/L (38-133); ALT/SGPT 17 U/L (7-56); AST/SGOT 20 U/L (15-39); BLOOD UREA NITROGEN 20 mg/dL (7-21); CALCIUM 9.9 mg/dL (8.4-10.5); CARBON DIOXIDE 23 mmol/L (21-33); CHLORIDE 101 mmol/L (98-107); GFR AFRICAN-AMERICAN > 60; GLUCOSE,RANDOM 152 mg/dL (70-110); LIPASE 12 U/L (23-300); POTASSIUM 3.4 mmol/L (3.6-5.0); SODIUM 136 mmol/L (132-148); TOTAL PROTEIN 7.9 g/dL (5.8-8.3)
[2017-05-11 13:58] LABS: INR 1.02 (0.93-1.08); PARTIAL THROMBOPLASTIN TIME 25.5 Seconds (23.7-30.8)
[2017-05-11 14:47] LABS: URINE BILIRUBIN MODERATE (NEGATIVE); URINE BLOOD TRACE-INTACT (NEGATIVE); URINE GLUCOSE (UA) 500 mg/dL (NEGATIVE); URINE KETONE 40 mg/dL (NEGATIVE); URINE LEUKOCYTE ESTERASE NEGATIVE Leu/uL (NEGATIVE); URINE PROTEIN 100 mg/dL (<30 mg/dL); URINE UROBILINOGEN 0.2 E.U./dL (<1 E.U./dL)
[2017-05-11 14:48] LABS: URINE APPEARANCE SL CLOUDY (CLEAR); URINE COLOR YELLOW (YELLOW)
--- NOTE | 2017-05-11 15:09 | RAD ---
HISTORY: chest and abdominal pain COMPARISON: 04/08/2017. FINDINGS: LUNGS: The lungs are well inflated and clear. PLEURA: No significant pleural effusion identified, no pneumothorax apparent. CARDIOVASCULAR: Normal. OSSEOUS STRUCTURES: No significant abnormalities. VISUALIZED UPPER ABDOMEN: Normal. OTHER FINDINGS: None. IMPRESSION: No active pulmonary disease.
[2017-05-11 15:10] LABS: URINE BACTERIA SMALL (NEG); URINE RBC 0 - 2 /hpf (0-2); URINE WBC 0 - 2 /hpf (0-6)
[2017-05-11] MEDS ORDERED: Sodium Chloride 0.45% 1,000 ML IV SCH (16:30)
[2017-05-11] MEDS ORDERED: Sodium Chloride 0.45% 500ml 500 ML SOL IV SCH (16:30)
--- NOTE | 2017-05-11 23:39 | CARD ---
APPROVED REPORT EKG Measurement Heart [id number] <Conclusion> Sinus tachycardia Possible Left atrial enlargement Borderline ECG
[2017-05-12] MEDS: Pantoprazole 40mg/100ml IVPB 40 MG/100 ML BAG IVPB SCH (06:19)
[2017-05-12 07:36] LABS: HEMATOCRIT 34.9 % (36.0-48.0); MEAN CORPUSCULAR HEMOGLOBIN 26.7 pg (25.0-35.0); MEAN PLATELET VOLUME 8.9 fl (7.0-11.0); RED CELL DISTRIBUTION WIDTH 17.1 % (11.5-14.5); WHITE BLOOD COUNT 4.9 10^3/ul (4.5-11.0)
[2017-05-12 07:53] LABS: ALB/GLOB RATIO 1.1 (1.1-1.8); ALKALINE PHOSPHATASE 80 U/L (38-133); ALT/SGPT 27 U/L (7-56); AST/SGOT 20 U/L (15-39); BILIRUBIN,TOTAL 0.7 mg/dL (0.2-1.3); BLOOD UREA NITROGEN 21 mg/dL (7-21); CALCIUM 9.3 mg/dL (8.4-10.5); CARBON DIOXIDE 21 mmol/L (21-33); CHLORIDE 104 mmol/L (95-110); GFR AFRICAN-AMERICAN > 60; GLUCOSE,RANDOM 126 mg/dL (70-110); POTASSIUM 3.2 mmol/L (3.6-5.0); SODIUM 137 mmol/L (132-148); TOTAL PROTEIN 6.8 g/dL (5.8-8.3)
--- NOTE | 2017-05-12 11:52 | DS ---
She is doing much better. No more nausea, vomiting. Slept well. She is hungry. She has an appetit e. I will put her on clears this morning. If she does well, I will put her on regular for lunch. I f she does well, I will discharge her this afternoon. She will go home on her regular medications, which are Carafate, Colace, Levemir, Protonix, Zofran, A tivan, metoprolol, and amlodipine. We will give her some potassium replacement this morning. PHYSICAL EXAMINATION: VITAL SIGNS: She has a 97.9 temp, 103 pulse, 103/71 blood pressure, 20 respiratory rate and 100% O2 sat on room air. HEENT: Head is atraumatic, normocephalic. HEART: Regular rate. LUNGS: Clear to auscultation. ABDOMEN: Soft, positive bowel sounds, nontender, not bloated. EXTREMITIES: No edema. She has a 137 sodium, potassium 3.2. I am giving her 2 K riders of 10 mEq. BUN 21, creatinine 1.1, GFR is 55, sugar is 126, calcium is 9.3, total bili is 0.7, AST is 20, ALT is 27, alk phos is 80, tot al protein 6.8, albumin is 3.6. White count is 4.9, hemoglobin 11.5, hematocrit 34.9, platelets of 2 25. She is being seen by GI. They have not seen her yet. I plan on discharging her after lunch if she e ats well. David Theodore DO cc: [id number] TT: 05/12/2017 11:51:32 en
[2017-05-12] MEDS ORDERED: Potassium Chloride 20 mEq ER Tab PO SCH (14:00)
--- NOTE | 2017-05-12 14:08 | CON ---
DATE: 05/12/2017 Seen and examined at the bedside late this morning. REASON FOR CONSULTATION: For nausea and vomiting. Chart was reviewed. HISTORY OF PRESENT ILLNESS: A 42-year-old female with a past medical history of diabetes mellitus, s evere gastroparesis, DKA, hypertension, coronary artery disease, dyslipidemia, anemia, peptic ulcer d isease with multiple admissions in the past for nausea, vomiting, and abdominal pain. Recently, she underwent Botox injection at [facility] in [place]. After that Botox injection, the p atient stated that she felt that she was doing well. After that, on Monday, she started having nause a and this chest discomfort. She denies any shortness of breath or chest pain. States she could not quite explain it, but no abdominal pain. Reports that she was watching her diet. No reports of any hematemesis. Her last bowel movement was a few days ago, but she does not feel constipated. She do es take some stool softeners at home. No reports of any bleeding. She was able to tolerate, this mo rning, some of her soft food and she has had no vomiting last night or this morning. PAST MEDICAL HISTORY: As stated above, gastroparesis, diabetes mellitus, duodenal ulcers, gastritis, GERD, DKA, diabetic foot ulcer, hypertension and anemia which she refused blood transfusion. PAST SURGICAL HISTORY: No abdominal surgery. Her last endoscopy was 12/12/2016, found to have LA gr farhad C esophagitis, esophageal ulcers. MEDICATIONS: Reviewed as per JAN. She is on pantoprazole, Carafate, Colace, iron, insulin, Levemir, Zofran, Ativan, Norvasc and Lopressor. ALLERGIES: REGLAN, METOCLOPRAMIDE. SOCIAL HISTORY: Denies smoking, drugs or ETOH. FAMILY HISTORY: There is diabetes and hypertension. REVIEW OF SYSTEMS: Systems reviewed with positive findings, see HPI. VITAL SIGNS: Temperature is 97.9, blood pressure is 104/70, pulse 90, respirations 20, 100% on room air. LABORATORIES: WBC is 4.9, H and H is 11.5 and 34.9, platelets is 225. Her PT yesterday is 11.0, INR is 1.02, PTT is 25.5. Chem: Sodium 137, K 3.2, BUN is 21, creatinine is 1.1. Her LFTs are within normal limits. Urine is negative for leukocyte esterase. Chest x-ray was done yesterday and that wa s negative for pleural effusion, pneumothorax. PHYSICAL EXAMINATION: HEENT: Sclera is anicteric. NECK: Supple. CARDIAC: S1, S2. LUNG SOUNDS: Clear. ABDOMEN: With bowel sounds, soft, nontender on deep palpation. No rebound, guarding, or organomegal y. EXTREMITIES: Positive pedal pulses, no edema. NEUROLOGIC: Awake, alert, and oriented. ASSESSMENT: A 42-year-old female with history of diabetes mellitus, severe gastroparesis, status pos t Botox injection very recently, peptic ulcer disease, gastroesophageal reflux disease, hypertension. PLAN: The patient is due to follow up with a GI doctor at [facility]3]. Discussed to continue small frequent meals and chew her food well. Continue PPI. She is also on Carafate, on iron. Discussed w ith her regarding outpatient elective colonoscopy, which can consider outpatient when she follows up with her GI doctor at [facility], which was discussed with the patient. She seemed to have tolerated her food. There is plan for discharge later today if she tolerates this and she is to foll ow up with GI doctor at [facility]. Thank you for this consult and for allowing us to participate in your patient's care. The patient wa s seen and case discussed with Dr. Gomez. Samantha YEN cc: [id number] TT: 05/12/2017 14:07:25 Confirmation # [id number] Dictation # [id number] en
[2017-05-12] MEDS ORDERED: Potassium Chloride 20 mEq ER Tab PO ONE (14:29)
[2017-05-12] MEDS ORDERED: Insulin Regular 1 UNITS/0.01 ML ML SC STA ×2 (17:41→20:23)
[2017-05-12 17:49] LABS: ALKALINE PHOSPHATASE 89 U/L (38-133); ALT/SGPT 28 U/L (7-56); AST/SGOT 20 U/L (15-39); BILIRUBIN,TOTAL 0.8 mg/dL (0.2-1.3); BLOOD UREA NITROGEN 25 mg/dL (7-21); CALCIUM 8.8 mg/dL (8.4-10.5); CARBON DIOXIDE 21 mmol/L (21-33); CHLORIDE 96 mmol/L (98-107); GFR AFRICAN-AMERICAN > 60; POTASSIUM 4.6 mmol/L (3.6-5.0); SODIUM 127 mmol/L (132-148); TOTAL PROTEIN 6.9 g/dL (5.8-8.3)
[2017-05-12 17:53] LABS: GLUCOSE,RANDOM 615 mg/dL (70-110)
[2017-05-12] MEDS ORDERED: Sodium Chloride 0.9% 100 ML IV SCH (18:18)
--- NOTE | 2017-05-12 18:39 | CP.PCM.PN ---
Subjective - Date & Time of Evaluation Date of Evaluation: 05/12/17 Time of Evaluation: 17:55 - Subjective Subjective: Patient is seen for accucheck of > 500.She is supposed to be discharged today. She is an Insulin dependant diabetic,was admitted for c/o abdominal pain and vomiting.She was placed on NPO orders and her Insulin was not ordered. Currently patient is asymptomatic.She denies nausea,vomiting or abdominal pain.Tolerated her diet well. Her VS are stable. PMH:DM,Gastroparesis,HTN,duodenal ulcers,gastritis,Gerd,history of DKA. Objective - Vital Signs/Intake and Output Vital Signs (last 24 hours): Temp Pulse Resp BP Pulse Ox 97.3 F L 69 20 134/76 98 05/12/17 16:00 05/12/17 16:00 05/12/17 16:00 05/12/17 16:00 05/12/17 16:00 Intake and Output: 05/12/17 05/12/17 06:59 18:59 Intake Total 1440 540 Balance 1440 540 - Medications Medications: Current Medications Amlodipine Besylate (Norvasc) 5 mg PO DAILY [facility] Last Admin: 05/12/17 10:58 Dose: 5 mg Pantoprazole Sodium (Protonix 40mg Ivpb) 40 mg in 100 mls @ 200 mls/hr IVPB 0600 [facility] Last Admin: 05/12/17 06:19 Dose: 200 mls/hr Sodium Chloride (Sodium Chloride 0.45%) 1,000 mls @ 60 mls/hr IV .[id number] [facility] Last Admin: 05/11/17 20:07 Dose: 60 mls/hr Ketorolac Tromethamine (Toradol) 30 mg IVP Q6 PRN PRN Reason: Pain, moderate (4-7) Last Admin: 05/12/17 11:14 Dose: 30 mg Lorazepam (Ativan) 0.5 mg PO BID [facility] PRN Reason: Protocol Last Admin: 05/12/17 11:03 Dose: 0.5 mg Metoprolol Tartrate (Lopressor) 25 mg PO BID [facility] Last Admin: 05/12/17 10:57 Dose: 25 mg Ondansetron HCl (Zofran Inj) 4 mg IVP Q4H PRN PRN Reason: Nausea/Vomiting - Labs Labs: 05/12/17 05:00 05/12/17 17:30 PT 11.0 Seconds (9.9-11.8) 05/11/17 13:20 INR 1.02 (0.93-1.08) 05/11/17 13:20 APTT 25.5 Seconds (23.7-30.8) 05/11/17 13:20 - Constitutional Appears: No Acute Distress - Head Exam Head Exam: NORMAL INSPECTION - Eye Exam Eye Exam: PERRL - ENT Exam ENT Exam: Mucous Membranes Moist - Neck Exam Neck Exam: Normal Inspection - Respiratory Exam Respiratory Exam: Clear to Ausculation Bilateral - Cardiovascular Exam Cardiovascular Exam: REGULAR RHYTHM - GI/Abdominal Exam GI & Abdominal Exam: Soft, Normal Bowel Sounds. absent: Tenderness - Extremities Exam Extremities Exam: Normal Inspection. absent: Pedal Edema - Neurological Exam Neurological Exam: Altered, Awake, Oriented x3 - Skin Skin Exam: Dry, Warm Assessment and Plan - Assessment and Plan (Free Text) Assessment: Hyperglycemia,history of DM Plan: Patient was given 10 units regular Insulin sc stat Blood was sent for CMP stat.Blood sugar is reported to be 615 NS 150cc/hr ordered. Discharge order is held. Case discussed with Dr higginbotham Accstepheck to be repeated at 8PM Dr Higginbotham is to be notified.If blood sugar is still very high,pt may need Insulin drip.
[2017-05-12] MEDS: Insulin Reg-HIGH-Coverage SC SCH (22:15)
--- NOTE | 2017-05-12 22:21 | CP.PCM.PN ---
Subjective - Date & Time of Evaluation Date of Evaluation: 05/12/17 Time of Evaluation: 22:20 - Subjective Subjective: # 24 angiocath was inserted in left hand. Dx: Poor venous access. Objective - Vital Signs/Intake and Output Vital Signs (last 24 hours): Temp Pulse Resp BP Pulse Ox 97.7 F 98 H 20 115/80 95 05/12/17 16:00 05/12/17 18:24 05/12/17 16:00 05/12/17 18:24 05/12/17 16:00 Intake and Output: 05/12/17 05/13/17 18:59 06:59 Intake Total 540 Balance 540 - Medications Medications: Current Medications Amlodipine Besylate (Norvasc) 5 mg PO DAILY [facility] Last Admin: 05/12/17 10:58 Dose: 5 mg Pantoprazole Sodium (Protonix 40mg Ivpb) 40 mg in 100 mls @ 200 mls/hr IVPB 0600 [facility] Last Admin: 05/12/17 06:19 Dose: 200 mls/hr Sodium Chloride (Sodium Chloride 0.9%) 1,000 mls @ 150 mls/hr IV .[id number] [facility] Insulin Human Regular (Humulin R High) 0 units SC ACHS [facility] PRN Reason: Protocol Ketorolac Tromethamine (Toradol) 30 mg IVP Q6 PRN PRN Reason: Pain, moderate (4-7) Last Admin: 05/12/17 11:14 Dose: 30 mg Lorazepam (Ativan) 0.5 mg PO BID [facility] PRN Reason: Protocol Last Admin: 05/12/17 18:25 Dose: 0.5 mg Metoprolol Tartrate (Lopressor) 25 mg PO BID [facility] Last Admin: 05/12/17 18:24 Dose: 25 mg Ondansetron HCl (Zofran Inj) 4 mg IVP Q4H PRN PRN Reason: Nausea/Vomiting - Labs Labs: 05/12/17 05:00 05/12/17 17:30 PT 11.0 Seconds (9.9-11.8) 05/11/17 13:20 INR 1.02 (0.93-1.08) 05/11/17 13:20 APTT 25.5 Seconds (23.7-30.8) 05/11/17 13:20
[2017-05-12] MEDS ORDERED: Insulin Lispro 1 UNITS/0.01 ML SC STA (22:27)
[2017-05-13] MEDS: Sodium Chloride 0.9% 1,000 ML IV SCH ×2 (01:07→04:00)
--- NOTE | 2017-05-13 02:30 | CP.PCM.PN ---
Subjective - Date & Time of Evaluation Date of Evaluation: 05/13/17 Time of Evaluation: 02:24 - Subjective Subjective: S: Requested a sleeping pill. Has no other complaints now. Denies cp, sob, nausea. FSBS is 48 mg % after which she received sugar , juices etc. Medical records was reviewed. O: Last Vital Signs 3 Temp 97.7 F 05/12/17 16:00 Pulse 98 H 05/12/17 18:24 Resp 20 05/12/17 16:00 BP 115/80 05/12/17 18:24 Pulse Ox 95 05/12/17 16:00 Awake, alert , not in distress. LUNGS: Normal breathing pattern. NEURO:Speech normal. A: Adjustment insomnia. P:Benadryl 25 mg PO x 1. Objective - Vital Signs/Intake and Output Vital Signs (last 24 hours): Temp Pulse Resp BP Pulse Ox 97.7 F 98 H 20 115/80 95 05/12/17 16:00 05/12/17 18:24 05/12/17 16:00 05/12/17 18:24 05/12/17 16:00 Intake and Output: 05/12/17 05/13/17 18:59 06:59 Intake Total 540 960 Balance 540 960 - Medications Medications: Current Medications Amlodipine Besylate (Norvasc) 5 mg PO DAILY [facility] Last Admin: 05/12/17 10:58 Dose: 5 mg Pantoprazole Sodium (Protonix 40mg Ivpb) 40 mg in 100 mls @ 200 mls/hr IVPB 0600 [facility] Last Admin: 05/12/17 06:19 Dose: 200 mls/hr Sodium Chloride (Sodium Chloride 0.9%) 1,000 mls @ 150 mls/hr IV .Q6H40M [facility] Last Admin: 05/13/17 01:07 Dose: 150 mls/hr Insulin Human Regular (Humulin R High) 0 units SC ACHS MICHELLE PRN Reason: Protocol Last Admin: 05/12/17 22:15 Dose: Not Given Ketorolac Tromethamine (Toradol) 30 mg IVP Q6 PRN PRN Reason: Pain, moderate (4-7) Last Admin: 05/12/17 11:14 Dose: 30 mg Lorazepam (Ativan) 0.5 mg PO BID MICHELLE PRN Reason: Protocol Last Admin: 05/12/17 18:25 Dose: 0.5 mg Metoprolol Tartrate (Lopressor) 25 mg PO BID [facility] Last Admin: 05/12/17 18:24 Dose: 25 mg Ondansetron HCl (Zofran Inj) 4 mg IVP Q4H PRN PRN Reason: Nausea/Vomiting - Labs Labs: 05/12/17 05:00 05/12/17 17:30 PT 11.0 Seconds (9.9-11.8) 05/11/17 13:20 INR 1.02 (0.93-1.08) 05/11/17 13:20 APTT 25.5 Seconds (23.7-30.8) 05/11/17 13:20
[2017-05-13] MEDS: Pantoprazole 40mg/100ml IVPB 40 MG/100 ML BAG IVPB SCH (06:11)
--- NOTE | 2017-05-13 08:17 | PN ---
DATE: 05/12/2017 This patient was seen and evaluated earlier today. This is an addendum to the GI consultation report dictated by Samantha Webb APN. The patient had been followed by our service in hospital for recurrent episodes of vomiting gastroparesis . Initially she was followed at [facility]. Now, finally at the [facility] by Dr. Saravia, She had a Botox injection of the gastric pylorus. The patient did have some relief for 48 hours, then she had recurrence of the symptoms. She has an appointment to follow up with him in a few days' time. The patient also has a history of anemia. The patient had endoscopy done and she told me that her biopsies were also negative. We will continue to closely follow up her care. Would start the patient on puree diet if she is tolerating clear. Bev Gomez MD cc: [id number] TT: 05/13/2017 08:16:17 Confirmation # [id number] Dictation # [id number] MTDD
[2017-05-13] MEDS: Insulin Reg-HIGH-Coverage SC SCH ×4 (08:24→22:00)
--- NOTE | 2017-05-13 12:36 | PN ---
DATE: 05/13/2017 The patient is a 42-year-old female, seen and examined at bedside. The patient's discharge was held yesterday due to erratic blood sugars over the night. Blood sugar at the point was 500 on Accu-Chek and then 600 on CMP. So, discharge held, started the patient on new insulin regimen, which includes high dose sliding scale as well as Levemir 20 units subQ daily. Currently, the patient is seen, she is feeling a little better; however, she does still feel a little bit dehydrated, complaining of mult iple episodes of urination, but no fevers, no chills, no shortness of breath. PHYSICAL EXAMINATION: VITAL SIGNS: Blood pressure is currently 120/62, pulse rate of 102, temperature is 98.9, O2 saturati on is 98 at this point. HEENT: Normocephalic, atraumatic. [place] conjunctivae, nonicteric sclerae. NECK: No JVD, no thyromegaly. CARDIOVASCULAR: Regular rate and rhythm. S1, S2 appreciated. No S3 noted. LUNGS: Bilateral air entry is positive. No wheezes or rhonchi. ABDOMEN: Nondistended, nontender. Positive bowel sounds. EXTREMITIES: Peripheral pulses +2 with no pitting edema. LABORATORY DATA: The patient had multiple Accu-Cheks that have been ranging from 121-472. WBCs of 4 .9, hemoglobin of 11.5, hematocrit of 34.9, platelets of 225. Chemistry: Sodium of 127, anion gap o f 15, glucose of 615. LFTs within normal limits. ASSESSMENT: 1. Uncontrolled diabetes. 2. Abdominal pain. 3. Hyponatremia. 4. Diabetic ketoacidosis. PLAN: I have the patient now currently on 150 mL of normal saline. I did start her on insulin with a high dose sliding scale as well as Levemir 20 units subQ. Will continue to follow very closely as the patient will most likely discharge in the morning. However, we will her into an admission status. Dillon Oakes MD cc: [id number] TT: 05/13/2017 12:36:40 Confirmation # [id number] Dictation # [id number]
[2017-05-13] MEDS ORDERED: Insulin Regular 1 UNITS/0.01 ML ML SC STA (14:01)
[2017-05-13 17:09] VITALS: RESP 20
[2017-05-13] MEDS: Insulin Detemir 100 units/ml Vial (Levemir) SC SCH (17:56)
--- NOTE | 2017-05-14 01:39 | CP.PCM.PN ---
Subjective - Date & Time of Evaluation Date of Evaluation: 05/14/17 Time of Evaluation: 01:38 - Subjective Subjective: # 22 angiocath was inserted in right distal volar forearm. Dx:Poor venous access. Objective - Vital Signs/Intake and Output Vital Signs (last 24 hours): Temp Pulse Resp BP Pulse Ox 98.2 F 106 H 20 91/60 L 100 05/13/17 16:00 05/13/17 18:02 05/13/17 16:00 05/13/17 18:02 05/13/17 16:00 Intake and Output: 05/13/17 05/14/17 18:59 06:59 Intake Total 720 400 Balance 720 400 - Medications Medications: Current Medications Amlodipine Besylate (Norvasc) 5 mg PO DAILY [facility] Last Admin: 05/13/17 10:17 Dose: 5 mg Pantoprazole Sodium (Protonix 40mg Ivpb) 40 mg in 100 mls @ 200 mls/hr IVPB 0600 [facility] Last Admin: 05/13/17 06:11 Dose: 200 mls/hr Sodium Chloride (Sodium Chloride 0.9%) 1,000 mls @ 150 mls/hr IV .Q6H40M [facility] Last Admin: 05/13/17 04:00 Dose: 150 mls/hr Insulin Detemir (Levemir) 20 unit SC DAILY [facility] Last Admin: 05/13/17 17:56 Dose: 20 unit Insulin Human Regular (Humulin R High) 0 units SC ACHS [facility] PRN Reason: Protocol Last Admin: 05/13/17 17:55 Dose: Not Given Ketorolac Tromethamine (Toradol) 30 mg IVP Q6 PRN PRN Reason: Pain, moderate (4-7) Last Admin: 05/12/17 11:14 Dose: 30 mg Lorazepam (Ativan) 0.5 mg PO BID [facility] PRN Reason: Protocol Last Admin: 05/13/17 17:57 Dose: 0.5 mg Metoprolol Tartrate (Lopressor) 25 mg PO BID [facility] Last Admin: 05/13/17 18:02 Dose: Not Given Ondansetron HCl (Zofran Inj) 4 mg IVP Q4H PRN PRN Reason: Nausea/Vomiting - Labs Labs: PT 11.0 Seconds (9.9-11.8) 06/22/17 13:20 INR 1.02 (0.93-1.08) 05/11/17 13:20 APTT 25.5 Seconds (23.7-30.8) 05/11/17 13:20
[2017-05-14] MEDS: Pantoprazole 40mg/100ml IVPB 40 MG/100 ML BAG IVPB SCH (05:40)
[2017-05-14 08:01] LABS: ADD MANUAL DIFF? NO
[2017-05-14 08:08] LABS: BASO # 0.01 K/mm3 (0.0-2.0); BASO % 0.2 % (0.0-3.0); EOS # 0.1 (0.0-0.7); EOS % 2.2 % (1.5-5.0); GRAN # 2.35 (1.4-6.5); HEMATOCRIT 34.4 % (36.0-48.0); LYMPH # 2.9 (1.2-3.4); LYMPH % 47.5 % (22.0-35.0); MEAN CELL VOLUME 81.5 fL (80.0-105.0); MEAN CORPUSCULAR HGB CONC 33.1 g/dl (31.0-37.0); MEAN PLATELET VOLUME 9.4 fl (7.0-11.0); MONO # 0.7 (0.1-0.6); MONO % 11.1 % (1.0-6.0); PLATELET COUNT 240 10^3/uL (120.0-450.0); RED CELL DISTRIBUTION WIDTH 17.2 % (11.5-14.5)
[2017-05-14 08:18] LABS: ALKALINE PHOSPHATASE 88 U/L (38-133); ALT/SGPT 26 U/L (7-56); AST/SGOT 18 U/L (15-39); BILIRUBIN,TOTAL 0.5 mg/dL (0.2-1.3); BLOOD UREA NITROGEN 20 mg/dL (7-21); CALCIUM 8.9 mg/dL (8.4-10.5); CARBON DIOXIDE 24 mmol/L (21-33); CHLORIDE 104 mmol/L (98-107); GFR AFRICAN-AMERICAN > 60; GLUCOSE,RANDOM 190 mg/dL (70-110); POTASSIUM 3.9 mmol/L (3.6-5.0); SODIUM 136 mmol/L (132-148); TOTAL PROTEIN 7.1 g/dL (5.8-8.3)
[2017-05-14] MEDS: Insulin Detemir 100 units/ml Vial (Levemir) SC SCH (09:39)
[2017-05-14] MEDS: Insulin Reg-HIGH-Coverage SC SCH ×3 (09:40→17:34)
[2017-05-14 16:45] VITALS: BP 106/66; PULSE 103; TEMP 97.9; O2SAT 96
--- NOTE | 2017-05-14 17:45 | DS ---
The patient is a 42-year-old female who comes in secondary to abdominal pain, found to be with uncont rolled diabetes, comes to the hospital stated that she was not taking any of her insulin at all, so tracie ever started the patient on Levemir 20 subQ daily, as well as high dose sliding scales. Since last seen , she states that the abdominal pain has stopped. She is not having chest pain, no shortness of kinsey th, no nausea, no vomiting. On time of discharge, vitals now are 108/72, pulse rate of 98, temperatu re is 98.2, O2 saturation is 99 on room air. On discharge, WBC of 6.9, hemoglobin 11.4, hematocrit o f 34.4, platelets of 244. Chemistry and LFTs are within normal limits. The hemoglobin A1c is still pending at this point; however, the patient had a complication in which she was seen by a consult for . was put in. However, was not seen prior to discharge. Did change her regimen and will be discharged on Levemir 20 mg subQ q.i.d., as well as NovoLog subQ 10 units t.i.d. She is to follow tracie Theodore in 2 weeks. I did explain to the patient in great detail that she needs to take her m edications and follow up with Dr. Theodore, her primary, in order to just maintain her medications. ASSESSMENT ON DISCHARGE: 1. Diabetes. 2. Hyponatremia, which has resolved. 3. Hypertension. She will follow with Dr. Theodore in 1 week. Dillon Oakes MD cc: [id number] TT: 05/14/2017 17:45:10 angie
== END 2017-05-14 17:36 | disposition home or self-care (01) | DRG 18 ==
LOC: ED 11:16 → ERH 13:48 → 5RSO 15:14 → OBSVTOIN 05-13 11:59
PROVIDERS: ADMIT Family Medicine; ATTEND Family Medicine
DX: E10.43 Type 1 diabetes mellitus with diabetic autonomic (poly)neuropathy (principal); K31.84 Gastroparesis; E10.10 Type 1 diabetes mellitus with ketoacidosis without coma; E86.0 Dehydration; E87.1 Hypo-osmolality and hyponatremia; I10 Essential (primary) hypertension; K29.70 Gastritis, unspecified, without bleeding; I25.10 Atherosclerotic heart disease of native coronary artery without angina pectoris; K21.0 Gastro-esophageal reflux disease with esophagitis; E78.5 Hyperlipidemia, unspecified; F51.02 Adjustment insomnia; D64.9 Anemia, unspecified; Z87.11 Personal history of peptic ulcer disease; Z83.3 Family history of diabetes mellitus; Z82.49 Family history of ischemic heart disease and other diseases of the circulatory system; Z79.4 Long term (current) use of insulin

== ENCOUNTER 2017-07-26 19:46 | Inpatient (IN) | payer MEDICAID ==
[2017-07-26] MEDS ORDERED: Morphine 4 mg/ml ISec IVP STA (20:24)
[2017-07-26] MEDS ORDERED: Sodium Chloride 0.9% 1,000 ML IV STA (20:24)
[2017-07-26 20:57] LABS: URINE BILIRUBIN MODERATE (NEGATIVE); URINE BLOOD TRACE-INTACT (NEGATIVE); URINE GLUCOSE (UA) 500 mg/dL (NEGATIVE); URINE KETONE >=80 mg/dL (NEGATIVE); URINE LEUKOCYTE ESTERASE NEGATIVE Leu/uL (NEGATIVE); URINE PROTEIN 100 mg/dL (<30 mg/dL)
[2017-07-26 21:03] LABS: URINE APPEARANCE SL CLOUDY (CLEAR); URINE COLOR YELLOW (YELLOW)
[2017-07-26 21:05] LABS: URINE BACTERIA FEW (NEG)
[2017-07-26 21:07] LABS: BASO # 0.01 K/mm3 (0.0-2.0); BASO % 0.1 % (0.0-3.0); EOS % 0.1 % (1.5-5.0); GRAN # 5.03 (1.4-6.5); GRAN % 57.4 % (50.0-68.0); HEMATOCRIT 37.6 % (36.0-48.0); LYMPH % 33.8 % (22.0-35.0); MEAN CELL VOLUME 82.3 fl (80.0-105.0); MEAN CORPUSCULAR HEMOGLOBIN 28.2 pg (25.0-35.0); MEAN CORPUSCULAR HGB CONC 34.3 g/dl (31.0-37.0); MEAN PLATELET VOLUME 8.7 fl (7.0-11.0); MONO # 0.8 (0.1-0.6); MONO % 8.6 % (1.0-6.0); RED CELL DISTRIBUTION WIDTH 13.9 % (11.5-14.5); WHITE BLOOD COUNT 8.8 10^3/ul (4.5-11.0)
[2017-07-26 21:14] LABS: ALB/GLOB RATIO 1.2 (1.1-1.8); ALKALINE PHOSPHATASE 103 U/L (38-126); ALT/SGPT 23 U/L (7-56); AST/SGOT 25 U/L (14-36); BLOOD UREA NITROGEN 20 mg/dL (7-21); CARBON DIOXIDE 22 mmol/L (21-33); CHLORIDE 98 mmol/L (98-107); GFR AFRICAN-AMERICAN > 60; GLUCOSE,RANDOM 162 mg/dL (70-110); INR 1.08 (0.93-1.08); LIPASE 18 U/L (23-300); PARTIAL THROMBOPLASTIN TIME 28.7 Seconds (23.7-30.8); POTASSIUM 3.6 mmol/L (3.6-5.0); SODIUM 139 mmol/L (132-148); TOTAL PROTEIN 8.5 g/dL (5.8-8.3)
[2017-07-26 21:25] LABS: TROPONIN I 0.02 ng/mL
[2017-07-26] MEDS ORDERED: HYDROmorphone 1 mg/ml ISec SC STA (22:50)
--- NOTE | 2017-07-26 23:05 | ED PDOC ---
Arrival/HPI <Ed Hodgson - Last Filed: 07/26/17 23:21> - General Historian: Patient - History of Present Illness Time/Duration: 1 week Symptom Onset: Gradual Symptom Course: Unchanged Activities at Onset: Light Context: Home <Betsey Rosales PA-C - Last Filed: 07/27/17 19:47> - General Chief Complaint: Abdominal Pain Time Seen by Provider: 07/26/17 20:02 - History of Present Illness Narrative History of Present Illness (Text): 07/26/17 20:20 42 year old female, whose past medical history includes Type 1 diabetes on insulin and gastroparesis, who presents to the ED complaining of frequent attacks of gastroparesis. Patient states she has been experiencing intermittent epigastric/mid-abdominal pain for 1 week with associated nausea and vomiting. Patient states symptoms are consistent with previous episodes of gastroparesis. Patient also complaining of lower sternal chest pain, which is new. Patient denies shortness of breath, fever, chills, diarrhea, recent travel, or recent injury. Patient states she had an endoscopy with botox injection in April for her gastroparesis. PMD: Dr. Theodore GI: Dr. Saravia at [facility] (Betsey Rosales PA-C) Past Medical History - Provider Review Nursing Documentation Reviewed: Yes - Infectious Disease Hx of Infectious Diseases: None - Tetanus Immunization Tetanus Immunization: Unknown - Past Medical History Past Medical History: No Previous - Cardiac Hx Cardiac Disorders: Yes Hx Hypertension: Yes - Pulmonary Hx Respiratory Disorders: No - Neurological Hx Neurological Disorder: Yes (NEUROPATHY) - HEENT Hx HEENT Disorder: Yes Other/Comment: wears glasses-nearsighted - Renal Hx Renal Disorder: No - Endocrine/Metabolic Hx Diabetes Mellitus Type 1: Yes (hx DKA) - Hematological/Oncological Hx Anemia: Yes - Integumentary Hx Dermatological Disorder: Yes (hx diabetic foot ulcers) - Musculoskeletal/Rheumatological Hx Falls: No Hx Osteomyelitis: Yes (left foot 2014) - Gastrointestinal Hx Gastrointestinal Disorders: Yes (gastritis,gastroparesis) Hx Gastroesophageal Reflux: Yes Hx Gastrointestinal Ulcer: Yes - Genitourinary/Gynecological Hx Urinary Tract Infection: Yes - Psychiatric Hx Psychophysiologic Disorder: Yes Hx Anxiety: Yes Hx Substance Use: No - Past Surgical History Past Surgical History: No Previous - Surgical History Hx Cardiac Catheterization: No - Anesthesia Hx Anesthesia: No Hx Anesthesia Reactions: No Hx Malignant Hyperthermia: No - Suicidal Assessment Feels Threatened In Home Enviroment: No <Betsey Rosales PA-C - Last Filed: 07/27/17 19:47> Family/Social History - Physician Review Nursing Documentation Reviewed: Yes Family/Social History: Unknown Family HX Smoking Status: Never Smoked Hx Alcohol Use: No Hx Substance Use: No Hx Substance Use Treatment: No <Betsey Rosales PA-C - Last Filed: 07/27/17 19:47> Allergies/Home Meds <Ed Hodgson - Last Filed: 07/26/17 23:21> <Betsey Rosales PA-C - Last Filed: 07/27/17 19:47> Allergies/Adverse Reactions: Allergies metoclopramide HCl [From Reglan] Adverse Reaction (Verified 07/26/17 19:48) VOMITING Home Medications: Home Meds Medication Instructions Recorded Confirmed Insulin Detemir [Levemir] 15 unit SC 05/11/17 07/26/17 Review of Systems - Physician Review All systems were reviewed & negative as marked: Yes - Review of Systems Constitutional: Normal. absent: Fevers Eyes: Normal ENT: Normal Respiratory: Normal. absent: SOB, Cough Cardiovascular: Chest Pain Gastrointestinal: Abdominal Pain, Nausea, Vomiting. absent: Diarrhea Genitourinary Female: Normal. absent: Dysuria, Frequency, Hematuria, Urine Output Changes Musculoskeletal: Normal. absent: Back Pain, Neck Pain Skin: Normal. absent: Rash Neurological: Normal. absent: Headache, Dizziness Endocrine: Normal Hemo/Lymphatic: Normal Psychiatric: Normal <Betsey Rosales PA-C - Last Filed: 07/27/17 19:47> Physical Exam Vital Signs Reviewed: Yes Temperature: Afebrile Blood Pressure: Normal Pulse: Regular Respiratory Rate: Normal Appearance: Positive for: Well-Appearing, Non-Toxic, Comfortable Pain Distress: Moderate (Dry-heaving) Mental Status: Positive for: Alert and Oriented X 3 Finger Stick Blood Glucose: 187 - Systems Exam Head: Present: Atraumatic, Normocephalic Pupils: Present: PERRL Extroacular Muscles: Present: EOMI Conjunctiva: Present: Normal Mouth: Present: Dry Neck: Present: Normal Range of Motion Respiratory/Chest: Present: Clear to Auscultation, Good Air Exchange. No: Respiratory Distress, Accessory Muscle Use Cardiovascular: Present: Regular Rate and Rhythm, Normal S1, S2. No: Murmurs Abdomen: Present: Tenderness (Diffuse abdominal tenderness), Normal Bowel Sounds. No: Distention, Peritoneal Signs Upper Extremity: Present: Normal Inspection. No: Cyanosis, Edema Lower Extremity: Present: Normal Inspection. No: Edema Neurological: Present: GCS=15, CN II-XII Intact, Speech Normal Skin: Present: Warm, Dry, Normal Color. No: Rashes Psychiatric: Present: Alert, Oriented x 3, Normal Insight, Normal Concentration <Betsey Rosales PA-C - Last Filed: 07/27/17 19:47> Vital Signs Temp Pulse Pulse Resp BP Pulse Ox 07/27/17 02:49 98.4 F 129 H 122 H 22 162/93 H 07/27/17 00:58 117 H 16 138/77 99 07/26/17 20:36 124 H 20 100 07/26/17 19:53 98.9 F 133 H 20 131/68 99 Medical Decision Making <Ed Hodgson - Last Filed: 07/26/17 23:21> <Betsey Rosales PA-C - Last Filed: 07/27/17 19:47> ED Course and Treatment: 07/26/17 20:20 Impression: 42 year old female c/o intermittent epigastric/mid-abdominal pain x1 week. Differential Diagnosis included but are not limited to: gastroparesis vs gastritis vs pancreatitis Plan: -- EKG -- CXR -- Labs, lipase, troponin, vbg -- UA, urine cultures -- IV fluids -- Zofran -- Pepcid -- Morphine -- Reassess and dispositio Progress Notes: EKG: ST at 129 bpm, (-) acute ST changes, as read by NATHANIEL. CXR: NAD, as read by NATHANIEL. Labs reviewed : CBC wnl, CMP: glucose 162, UA: + protien 100, +glucose 500. NATHANIEL called to quang by RN. IV access infiltrated. NS bolus was not given. On re- evaluation, patient reports of continued mid abdominal pain and nausea. IV access repeated and attempted numerous times by RN, NATHANIEL and with no success. Patient however remains tachycardic. P 124 R 20 O2sat 100%RA. On exam, abdomen remains soft with diffuse abdominal tenderness. Dilaudid 1 mg SC and zofran 4 mg ODT ordered. Case d/w Dr. Theodore, agrees for plan for inpt obs, and is requesting to obtain CT A/P. residential remodeling subcontractor Dr. Wilkes, notified of case and need for central line placement. Pt notified of plan for inpt observation, which the pt agrees to. residential remodeling subcontractor was able to place central line with success. VBG obtained through central line. (Bobby GEORGE,Betsey Rm) - Lab Interpretations Lab Results: 07/26/17 20:55 07/26/17 20:55 Lab Results 07/26/17 20:55: Sodium 139, Potassium 3.6, Chloride 98, Carbon Dioxide 22, Anion Gap 23 H, BUN 20, Creatinine 0.9, Est GFR ( Amer) > 60, Est GFR ( Non-Af Amer) > 60, Random Glucose 162 H, Calcium 10.0, Total Bilirubin 1.0, AST 25, ALT 23, Alkaline Phosphatase 103, Troponin I 0.02, Total Protein 8.5 H, Albumin 4.7, Globulin 3.9, Albumin/Globulin Ratio 1.2, Lipase 18 L 07/26/17 20:55: PT 11.7, INR 1.08, APTT 28.7 07/26/17 20:55: WBC 8.8 D, RBC 4.57, Hgb 12.9, Hct 37.6, MCV 82.3, MCH 28.2, MCHC 34.3, RDW 13.9, Plt Count 321, MPV 8.7, Gran % 57.4, Lymph % (Auto) 33.8, [place] % (Auto) 8.6 H, Eos % (Auto) 0.1 L, Baso % (Auto) 0.1, Gran # 5.03, Lymph # 3.0, [place] # 0.8 H, Eos # 0.0, Baso # 0.01 07/26/17 20:45: Urine HCG, Qual Negative 07/26/17 20:45: Urine Color Yellow, Urine Appearance Sl cloudy, Urine pH 6.0, Ur Specific [place] >= 1.030, Urine Protein 100 H, Urine Glucose (UA) 500 H, Urine Ketones >=80, Urine Blood Trace-intact H, Urine Nitrate Negative, Urine Bilirubin Moderate H, Urine Urobilinogen 1.0 H, Ur Leukocyte Esterase Negative, Urine RBC 1 - 3, Urine WBC 2 - 5, Ur Epithelial Cells 6 - 8, Urine Bacteria Few - RAD Interpretation Radiology Orders: 07/26/17 20:24 CHEST PORTABLE [RAD] Stat 07/26/17 23:09 ABD & PELVIS PO CONTRAST ONLY [CT] Stat - Medication Orders Current Medication Orders: Docusate Sodium (Colace) 100 mg PO BID [facility] Last Admin: 07/27/17 17:25 Dose: 100 mg Hydromorphone HCl (Dilaudid) 2 mg IVP Q3H PRN PRN Reason: Pain, severe (8-10) Last Admin: 07/27/17 06:22 Dose: 2 mg Pantoprazole Sodium (Protonix 40mg Ivpb) 40 mg in 100 mls @ 200 mls/hr IVPB 0600 [facility] Erythromycin 250 mg/ Sodium (Chloride) 100 mls @ 100 mls/hr IVPB Q8H [facility] Last Admin: 07/27/17 18:44 Dose: 100 mls/hr Insulin Detemir (Levemir) 10 unit SC HS [facility] Insulin Human Regular (Humulin R High) 0 units SC ACHS [facility] PRN Reason: Protocol Last Admin: 07/27/17 17:25 Dose: 4 units Lorazepam (Ativan) 0.5 mg PO BID [facility] PRN Reason: Protocol Last Admin: 07/27/17 17:24 Dose: 0.5 mg Metoprolol Tartrate (Lopressor) 25 mg PO BID [facility] Last Admin: 07/27/17 17:26 Dose: 25 mg Ondansetron HCl (Zofran Inj) 4 mg IVP Q6H PRN PRN Reason: Nausea/Vomiting Sucralfate (Carafate Tab) 1 gm PO BID [facility] Last Admin: 07/27/17 17:25 Dose: 1 gm Discontinued Medications Erythromycin (Erythrocin) 250 mg IVPB Q8H [facility] PRN Reason: Protocol Famotidine (Pepcid) 20 mg IVP STAT STA Stop: 07/26/17 20:25 Last Admin: 07/26/17 20:57 Dose: 20 mg Hydromorphone HCl (Dilaudid) 1 mg SC STAT STA Stop: 07/26/17 22:51 Last Admin: 07/27/17 00:40 Dose: 1 mg Re-Assess: MAR Pain Assessment Document 07/27/17 01:40 SWE (Rec: 07/27/17 02:50 SWE [email or web address]) Pain Reassessment Is this a pain reassessment? Yes Sleep Is patient sleeping during reassessment? No Presence of Pain Presence of Pain No Sodium Chloride (Sodium Chloride 0.9%) 1,000 mls @ 1,000 mls/hr IV .Q1H STA Stop: 07/26/17 21:23 Last Admin: 07/26/17 20:57 Dose: 1,000 mls/hr Sodium Chloride (Sodium Chloride 0.9%) 1,000 mls @ 100 mls/hr IV .Q10H STA Stop: 07/27/17 13:31 Last Admin: 07/27/17 03:56 Dose: 100 mls/hr Erythromycin 250 mg/ Sodium (Chloride) 100 mls @ 100 mls/hr IVPB Q8 MICHELLE Iohexol (Omnipaque 240 (50 Ml)) Confirm Administered Dose 50 ml .ROUTE .STK-MED ONE Stop: 07/26/17 23:15 Morphine Sulfate (Morphine) 4 mg IVP STAT STA Stop: 07/26/17 20:25 Last Admin: 07/26/17 20:56 Dose: 4 mg Re-Assess: [facility] Pain Assessment Document 07/26/17 21:56 SWE (Rec: 07/27/17 02:50 SWE [email or web address]) Pain Reassessment Is this a pain reassessment? Yes Sleep Is patient sleeping during reassessment? No Presence of Pain Presence of Pain No Morphine Sulfate (Morphine) 4 mg IVP STAT STA Stop: 07/27/17 04:01 Last Admin: 07/27/17 04:16 Dose: 4 mg Re-Assess: MAR Pain Assessment Document 07/27/17 05:16 SWE (Rec: 07/27/17 05:29 SWE [email or web address]) Pain Reassessment Is this a pain reassessment? No Sleep Is patient sleeping during reassessment? Yes Ondansetron HCl (Zofran Inj) 4 mg IVP STAT STA Stop: 07/26/17 20:25 Last Admin: 07/26/17 20:57 Dose: 4 mg Ondansetron HCl (Zofran Odt) 4 mg PO STAT STA Stop: 07/26/17 22:51 Last Admin: 07/27/17 00:41 Dose: 4 mg - PA / SUPERVISOR DISPLAY FABRICATION / Resident Statement ADRIEN has reviewed & agrees with the documentation as recorded. ADRIEN has examined the patient and agrees with the treatment plan. <Ed Hodgson - Last Filed: 07/26/17 23:21> - PA / SUPERVISOR DISPLAY FABRICATION / Resident Statement ADRIEN has reviewed & agrees with the documentation as recorded. - Scribe Statement The provider has reviewed the documentation as recorded by the Scribe <Betsey Rosales PA-C - Last Filed: 07/27/17 19:47> - Scribe Statement Jenna Garcia All medical record entries made by the Scribe were at my direction and personally dictated by me. I have reviewed the chart and agree that the record accurately reflects my personal performance of the history, physical exam, medical decision making, and the department course for this patient. I have also personally directed, reviewed, and agree with the discharge instructions and disposition. (Betsey Rosales PA-C) Disposition/Present on Arrival <Ed Hodgson - Last Filed: 07/26/17 23:21> - Present on Arrival Any Indicators Present on Arrival: Yes History of DVT/PE: No History of Uncontrolled Diabetes: Yes Urinary Catheter: No History of Decub. Ulcer: No History Surgical Site Infection Following: None - Disposition Have Diagnosis and Disposition been Completed?: Yes Disposition Time: 23:00 Patient Plan: Observation <Betsey Rosales PA-C - Last Filed: 07/27/17 19:47> - Disposition Diagnosis: Intractable vomiting with nausea, Intractable abdominal pain, Gastroparesis Disposition: HOSPITALIZED Patient Problems: Current Active Problems Problem Status Onset Gastroparesis Acute Intractable abdominal pain Acute Intractable vomiting with nausea Acute Condition: STABLE
[2017-07-26] MEDS ORDERED: Iohexol 240 (50 ml) ONE (23:14)
--- NOTE | 2017-07-27 01:11 | CP.PCM.CON ---
History of Present Illness - History of Present Illness History of Present Illness: General Surgery Consult 42F presented to ED for intermittant abd pain x 1 week with associated N/V. Pt has hx of gastroparesis and this pain is similar to other episodes in the past. Consulted for central line placement due to inability to obtain IV access. Pt has had multiple central lines for the same reasons. PMH: DM type 1, gastroparesis, HTN, peripheran neuropathy, anxiety PSH: Botox injections for gastroparesis SH: No tobacco, EtOH, or Drug use All: metoclopramide Meds: See MAR Review of Systems - Review of Systems All systems: reviewed and no additional remarkable complaints except (chest pain ) Past Patient History - Infectious Disease Hx of Infectious Diseases: None - Tetanus Immunizations Tetanus Immunization: Unknown - Past Social History Smoking Status: Never Smoked - CARDIAC Hx Cardiac Disorders: Yes Hx Hypertension: Yes - PULMONARY Hx Respiratory Disorders: No - NEUROLOGICAL Hx Neurological Disorder: Yes (NEUROPATHY) - HEENT Hx HEENT Problems: Yes Other/Comment: wears glasses-nearsighted - RENAL Hx Chronic Kidney Disease: No - ENDOCRINE/METABOLIC Hx Diabetes Mellitus Type 1: Yes (hx DKA) - HEMATOLOGICAL/ONCOLOGICAL Hx Anemia: Yes - INTEGUMENTARY Hx Dermatological Problems: Yes (hx diabetic foot ulcers) - MUSCULOSKELETAL/RHEUMATOLOGICAL Hx Falls: No Hx Osteomyelitis: Yes (left foot 2014) - GASTROINTESTINAL Hx Gastrointestinal Disorders: Yes (gastritis,gastroparesis) Hx Gastroesophageal Reflux: Yes - GENITOURINARY/GYNECOLOGICAL Hx Urinary Tract Infection: Yes - PSYCHIATRIC Hx Psychophysiologic Disorder: Yes Hx Anxiety: Yes Hx Substance Use: No - SURGICAL HISTORY Hx Cardiac Catheterization: No - ANESTHESIA Hx Anesthesia: No Hx Anesthesia Reactions: No Hx Malignant Hyperthermia: No Meds Allergies/Adverse Reactions: Allergies Allergy/AdvReac Type Severity Reaction Status Date / Time metoclopramide HCl AdvReac VOMITING Verified 07/26/17 19:48 [From Reglan] Physical Exam - Constitutional Appears: Non-toxic, No Acute Distress - Head Exam Head Exam: ATRAUMATIC, NORMOCEPHALIC - Eye Exam Eye Exam: EOMI. absent: Scleral icterus - ENT Exam ENT Exam: Mucous Membranes Dry Additional comments: trachea midline - Respiratory Exam Respiratory Exam: NORMAL BREATHING PATTERN. absent: Respiratory Distress - Cardiovascular Exam Cardiovascular Exam: Tachycardia, +S1, +S2 - GI/Abdominal Exam GI & Abdominal Exam: Guarding, Soft, Tenderness. absent: Distended, Firm, Rigid - Rectal Exam Rectal Exam: Deferred - Extremities Exam Extremities exam: Positive for: pedal edema. Negative for: calf tenderness - Neurological Exam Neurological exam: Alert, Oriented x3 - Psychiatric Exam Psychiatric exam: Anxious - Skin Skin Exam: Dry, Warm Results - Vital Signs Recent Vital Signs: Last Vital Signs Temp 98.9 F 07/26/17 19:53 Pulse 124 H 07/26/17 20:36 Resp 20 07/26/17 20:36 BP 131/68 07/26/17 19:53 Pulse Ox 100 07/26/17 20:36 - Labs Result Diagrams: 07/26/17 20:55 07/26/17 20:55 Assessment & Plan - Assessment and Plan (Free Text) Assessment: 42F with no peripheral accessability Plan: Consent obtained R IJ central line placed (See procedure note below) F/U CXR for placement Will D/W Dr. Johnathan Wilkes PGY4 Central Line Placement - Central Line Placement Indication: Unable To Obtain Adequate Peripheral Access Central Line Placement: Right: Internal Jugular The Area Was Thoroughly Prepared With: Chlorhexidine, Draped Using Sterile Technique Area Was Locally Anesthetized With: Lidocaine 1% Procedure: Triple Lumen, Placed Using Standard Seldinger Technique (under ultrasound guidance), Catheter Was Sewn Into Place, Sterile Dressing Placed Over Line, Procedure Tolerated Well, CXR Ordered To Confirm Placement
[2017-07-27 01:32] LABS: VENOUS BLOOD GAS BASE EXCESS -2.4 mmol/L (0.0-2.0); VENOUS BLOOD PH 7.33 (7.32-7.43)
[2017-07-27] MEDS ORDERED: Sodium Chloride 0.9% 1,000 ML IV STA (03:32)
[2017-07-27 03:45] VITALS: BMI 23.9
[2017-07-27] MEDS ORDERED: Morphine 4 mg/ml ISec IVP STA (04:00)
[2017-07-27] MEDS: HYDROmorphone 2 mg/ml ISec IVP PRN ×2 (06:22→21:10)
[2017-07-27 06:34] LABS: BASO # 0.01 K/mm3 (0.0-2.0); BASO % 0.1 % (0.0-3.0); GRAN # 6.75 (1.4-6.5); GRAN % 76.8 % (50.0-68.0); HEMATOCRIT 36.9 % (36.0-48.0); LYMPH # 1.6 (1.2-3.4); LYMPH % 18.2 % (22.0-35.0); MEAN CELL VOLUME 84.1 fl (80.0-105.0); MEAN CORPUSCULAR HGB CONC 33.3 g/dl (31.0-37.0); MEAN PLATELET VOLUME 8.7 fl (7.0-11.0); MONO # 0.4 (0.1-0.6); MONO % 4.9 % (1.0-6.0); RED CELL DISTRIBUTION WIDTH 14.3 % (11.5-14.5); WHITE BLOOD COUNT 8.8 10^3/ul (4.5-11.0)
[2017-07-27 06:41] LABS: ALB/GLOB RATIO 1.3 (1.1-1.8); ALKALINE PHOSPHATASE 103 U/L (38-126); ALT/SGPT 30 U/L (7-56); AMYLASE 69 U/L (35-125); AST/SGOT 23 U/L (14-36); BILIRUBIN,TOTAL 1.1 mg/dL (0.2-1.3); BLOOD UREA NITROGEN 20 mg/dL (7-21); CALCIUM 9.5 mg/dL (8.4-10.5); CARBON DIOXIDE 16 mmol/L (21-33); CHLORIDE 99 mmol/L (98-107); GFR AFRICAN-AMERICAN > 60; LIPASE 19 U/L (23-300); POTASSIUM 4.3 mmol/L (3.6-5.0); SODIUM 139 mmol/L (132-148); TOTAL PROTEIN 7.9 g/dL (5.8-8.3)
--- NOTE | 2017-07-27 07:38 | CP.PCM.CON ---
<Gamaliel Summers - Last Filed: 07/27/17 09:37> History of Present Illness - History of Present Illness History of Present Illness: GI Consult Note 42 y/o F with PMH of DM type 1, gastroparesis, HTN, Duodenal ulcers, and GERD presents to the hospital for 1 week hx of nausea and vomiting. Patient states she had multiple episodes of nausea and vomiting per day, vomiting consistent of gastric juices and did not contain any blood. Pt states she consistently has issues like this due to her known gastroparesis. Pt did not take any medication to help with her symptoms. Pt also complains of decreased PO intake during this time. Pt has been noncompliant with her medications over the past week due to her symptoms, but otherwise states she has been compliant. Pt does have hx of noncompliance with medication. Pt typically has 2 bowel movements per day, but has not had a bowel movement in several days. Pt has been admitted to the hospital before for similar symptoms in the past. Pt has received a gastric emptying study recently that was consistent with gastroparesis. Pt also states she had an endoscopy performed in April at [facility] where she received a botox injection for her gastroparesis. Pt states she has had this procedure done in the past and it has helped minimally. Denies CP, SOB, diarrhea , fevers, chills, dysphagia, melena, hematochezia, hematemesis, recent sick contacts. PMH: DM type 1, gastroparesis, HTN, Duodenal ulcers, and GERD FMH: HTN, DM Social Hx: Denies alcohol, tobacco, or illicit drug use Endo Hx: Endoscopy recently found to be negative for any pathology in April. Medication: Reviewed, as per chart Allergies: Metoclopramide Review of Systems - Review of Systems Review of Systems: 12 point review of systems as per HPI, otherwise negative Past Patient History - Infectious Disease Hx of Infectious Diseases: None - Tetanus Immunizations Tetanus Immunization: Unknown - Past Social History Smoking Status: Never Smoked - CARDIAC Hx Cardiac Disorders: Yes Hx Hypertension: Yes - PULMONARY Hx Respiratory Disorders: No - NEUROLOGICAL Hx Neurological Disorder: Yes (NEUROPATHY) - HEENT Hx HEENT Problems: Yes Other/Comment: wears glasses-nearsighted - RENAL Hx Chronic Kidney Disease: No - ENDOCRINE/METABOLIC Hx Endocrine Disorders: Yes Hx Diabetes Mellitus Type 1: Yes (hx DKA) - HEMATOLOGICAL/ONCOLOGICAL Hx Anemia: Yes - INTEGUMENTARY Hx Dermatological Problems: Yes (hx diabetic foot ulcers) - MUSCULOSKELETAL/RHEUMATOLOGICAL Hx Musculoskeletal Disorders: Yes Hx Falls: No Hx Osteomyelitis: Yes (left foot 2013) - GASTROINTESTINAL Hx Gastrointestinal Disorders: Yes (gastritis,gastroparesis) Hx Gastroesophageal Reflux: Yes - GENITOURINARY/GYNECOLOGICAL Hx Genitourinary Disorders: Yes Hx Urinary Tract Infection: Yes - PSYCHIATRIC Hx Psychophysiologic Disorder: Yes Hx Anxiety: Yes Hx Substance Use: No - SURGICAL HISTORY Hx Surgeries: Yes Hx Cardiac Catheterization: No Other/Comment: endoscopy with BOTOX - ANESTHESIA Hx Anesthesia: No Hx Anesthesia Reactions: No Hx Malignant Hyperthermia: No Meds Allergies/Adverse Reactions: Allergies Allergy/AdvReac Type Severity Reaction Status Date / Time metoclopramide HCl AdvReac VOMITING Verified 07/26/17 19:48 [From [facility]] - Medications Medications: Current Medications Hydromorphone HCl (Dilaudid) 2 mg IVP Q3H PRN PRN Reason: Pain, severe (8-10) Last Admin: 07/27/17 06:22 Dose: 2 mg Sodium Chloride (Sodium Chloride 0.9%) 1,000 mls @ 100 mls/hr IV .Q10H STA Stop: 07/27/17 13:31 Last Admin: 07/27/17 03:56 Dose: 100 mls/hr Pantoprazole Sodium (Protonix 40mg Ivpb) 40 mg in 100 mls @ 200 mls/hr IVPB 0600 MICHELLE Ondansetron HCl (Zofran Inj) 4 mg IVP Q6H PRN PRN Reason: Nausea/Vomiting Physical Exam - Constitutional Appears: Non-toxic, No Acute Distress - Head Exam Head Exam: ATRAUMATIC, NORMAL INSPECTION, NORMOCEPHALIC - Eye Exam Eye Exam: EOMI, Normal appearance - ENT Exam ENT Exam: Mucous Membranes Moist, Normal Exam - Neck Exam Neck exam: Positive for: Normal Inspection. Negative for: Lymphadenopathy - Respiratory Exam Respiratory Exam: Accessory Muscle Use, NORMAL BREATHING PATTERN. absent: Rales , Rhonchi, Wheezes - Cardiovascular Exam Cardiovascular Exam: Tachycardia, +S1, +S2 - GI/Abdominal Exam GI & Abdominal Exam: Normal Bowel Sounds, Soft, Tenderness (Bandlike distrubtion along umbilical region). absent: Distended, Guarding, Rebound - Extremities Exam Extremities exam: Positive for: normal inspection. Negative for: calf tenderness, pedal edema - Neurological Exam Neurological exam: Alert, CN II-XII Intact, Oriented x3 - Psychiatric Exam Psychiatric exam: Normal Affect, Normal Mood - Skin Skin Exam: Intact, Normal Color, Warm Results - Vital Signs Recent Vital Signs: Last Vital Signs Temp 98.4 F 07/27/17 04:00 Pulse 125 H 07/27/17 06:00 Resp 20 07/27/17 04:00 BP 162/93 H 07/27/17 04:00 Pulse Ox 99 07/27/17 04:00 - Labs Result Diagrams: 07/27/17 06:20 07/27/17 06:20 Labs: Laboratory Results - last 24 hr 07/27/17 07/27/17 00:58 06:20 WBC 8.8 RBC 4.39 Hgb 12.3 Hct 36.9 MCV 84.1 MCH 28.0 MCHC 33.3 RDW 14.3 Plt Count 303 MPV 8.7 Gran % 76.8 H Lymph % (Auto) 18.2 L [place] % (Auto) 4.9 Eos % (Auto) 0.0 L Baso % (Auto) 0.1 Gran # 6.75 H Lymph # 1.6 [place] # 0.4 Eos # 0.0 Baso # 0.01 pO2 53 VBG pH 7.33 VBG pCO2 45.0 VBG HCO3 23.7 VBG Total CO2 25.1 VBG O2 Sat (Calc) 89.3 H VBG Base Excess -2.4 L VBG Potassium 4.0 Sodium 137.0 Chloride 97.0 L Glucose 238 H Lactate 1.0 FiO2 21.0 Venous Blood Potassium 4.0 Assessment & Plan - Assessment and Plan (Free Text) Plan: 1. Gastroparesis 2. DM type 1 3. HTN 4. GERD 42 y/o F with PMH of DM type 1, gastroparesis, HTN, Duodenal ulcers, and GERD presenting with gastroparesis. Pt recently received a botox injection to help with symptoms, but does not seem to be helping. Glucose levels are elevated, which may also acutely exacerbate gastroparesis in this patient. She will benefit from having multiple small meals throughout the day. Limit use of narcotics which may worsen gastroparesis. Will consider adding Erythromycin to medicine regimen as patient is allergic to Reglan. Will also Miralax if patient becomes constipated. Melina, PGY-2 <Aragon,Uzair - Last Filed: 07/27/17 19:34> Meds - Medications Medications: Current Medications Docusate Sodium (Colace) 100 mg PO BID [facility] Last Admin: 07/27/17 17:25 Dose: 100 mg Hydromorphone HCl (Dilaudid) 2 mg IVP Q3H PRN PRN Reason: Pain, severe (8-10) Last Admin: 07/27/17 06:22 Dose: 2 mg Pantoprazole Sodium (Protonix 40mg Ivpb) 40 mg in 100 mls @ 200 mls/hr IVPB 0600 MICHELLE Erythromycin 250 mg/ Sodium (Chloride) 100 mls @ 100 mls/hr IVPB Q8H [facility] Last Admin: 07/27/17 18:44 Dose: 100 mls/hr Insulin Detemir (Levemir) 10 unit SC HS [facility] Insulin Human Regular (Humulin R High) 0 units SC ACHS [facility] PRN Reason: Protocol Last Admin: 07/27/17 17:25 Dose: 4 units Lorazepam (Ativan) 0.5 mg PO BID [facility] PRN Reason: Protocol Last Admin: 07/27/17 17:24 Dose: 0.5 mg Metoprolol Tartrate (Lopressor) 25 mg PO BID [facility] Last Admin: 07/27/17 17:26 Dose: 25 mg Ondansetron HCl (Zofran Inj) 4 mg IVP Q6H PRN PRN Reason: Nausea/Vomiting Sucralfate (Carafate Tab) 1 gm PO BID [facility] Last Admin: 07/27/17 17:25 Dose: 1 gm Results - Vital Signs Recent Vital Signs: Last Vital Signs Temp 97.6 F 07/27/17 17:23 Pulse 90 07/27/17 18:00 Resp 19 07/27/17 17:23 BP 128/75 07/27/17 17:26 Pulse Ox 100 07/27/17 17:23 - Labs Result Diagrams: 07/27/17 06:20 07/27/17 06:20 Labs: Laboratory Results - last 24 hr 07/27/17 07/27/17 07/27/17 00:58 06:20 06:20 WBC 8.8 RBC 4.39 Hgb 12.3 Hct 36.9 MCV 84.1 MCH 28.0 MCHC 33.3 RDW 14.3 Plt Count 303 MPV 8.7 Gran % 76.8 H Lymph % (Auto) 18.2 L [place] % (Auto) 4.9 Eos % (Auto) 0.0 L Baso % (Auto) 0.1 Gran # 6.75 H Lymph # 1.6 [place] # 0.4 Eos # 0.0 Baso # 0.01 pO2 53 VBG pH 7.33 VBG pCO2 45.0 VBG HCO3 23.7 VBG Total CO2 25.1 VBG O2 Sat (Calc) 89.3 H VBG Base Excess -2.4 L VBG Potassium 4.0 Sodium 137.0 139 Chloride 97.0 L 99 Glucose 238 H Lactate 1.0 FiO2 21.0 Potassium 4.3 Carbon Dioxide 16 L Anion Gap 28 H BUN 20 Creatinine 1.0 Est GFR ( Amer) > 60 Est GFR (Non-Af Amer) > 60 POC Glucose (mg/dL) Random Glucose 450 H* D Calcium 9.5 Total Bilirubin 1.1 AST 23 ALT 30 Alkaline Phosphatase 103 Total Protein 7.9 Albumin 4.5 Globulin 3.4 Albumin/Globulin Ratio 1.3 Amylase 69 Lipase 19 L Venous Blood Potassium 4.0 07/27/17 07/27/17 11:33 17:04 WBC RBC Hgb Hct MCV MCH MCHC RDW Plt Count MPV Gran % Lymph % (Auto) [place] % (Auto) Eos % (Auto) Baso % (Auto) Gran # Lymph # [place] # Eos # Baso # pO2 VBG pH VBG pCO2 VBG HCO3 VBG Total CO2 VBG O2 Sat (Calc) VBG Base Excess VBG Potassium Sodium Chloride Glucose Lactate FiO2 Potassium Carbon Dioxide Anion Gap BUN Creatinine Est GFR ( Amer) Est GFR (Non-Af Amer) POC Glucose (mg/dL) 460 H* 240 H Random Glucose Calcium Total Bilirubin AST ALT Alkaline Phosphatase Total Protein Albumin Globulin Albumin/Globulin Ratio Amylase Lipase Venous Blood Potassium Attending/Attestation - Attestation I have personally seen and examined this patient.: Yes I have fully participated in the care of the patient.: Yes I have reviewed all pertinent clinical information: Yes Notes (Text): 07/27/17 19:33 42 year old female with h/o DMI and gastroparesis admitted with acute exacerbation. 1. Gastroparesis Plan: -recommend trial of IV erythromycin -recommend liquid diet / small freq meals and advance as tolerated -tight glycemic control -minimize narcotics -hydration and electrolyte replacement
[2017-07-27 07:45] LABS: GLUCOSE,RANDOM 450 mg/dL (70-110)
--- NOTE | 2017-07-27 07:50 | RAD ---
HISTORY: central line placement COMPARISON: 07/26/2017 TECHNIQUE: Chest PA and lateral FINDINGS: LUNGS: No active pulmonary disease. PLEURA: No significant pleural effusion identified. No pneumothorax apparent. CARDIOVASCULAR: Normal heart size. Right IJ central venous catheter terminates in the region of the SVC. OSSEOUS STRUCTURES: No significant abnormalities. VISUALIZED UPPER ABDOMEN: Normal. OTHER FINDINGS: None. IMPRESSION: Right IJ central venous catheter. No pneumothorax. No infiltrate
--- NOTE | 2017-07-27 07:53 | RAD ---
HISTORY: chest pain COMPARISON: 05/11/2017 FINDINGS: LUNGS: No active pulmonary disease. PLEURA: No significant pleural effusion identified, no pneumothorax apparent. CARDIOVASCULAR: Normal. OSSEOUS STRUCTURES: No significant abnormalities. VISUALIZED UPPER ABDOMEN: Normal. OTHER FINDINGS: None. IMPRESSION: No active disease.
--- NOTE | 2017-07-27 10:12 | CP.PCM.PN ---
Subjective - Date & Time of Evaluation Date of Evaluation: 07/27/17 Time of Evaluation: 10:12 - Subjective Subjective: General Surgery Progress note for Dr. Mann TLC site at right IJ is C/D/I. Patient is hemodynamically stable. No surgical interventions needed at this time Objective - Vital Signs/Intake and Output Vital Signs (last 24 hours): Temp Pulse Resp BP Pulse Ox 97.6 F 108 H 19 123/81 99 07/27/17 08:14 07/27/17 08:14 07/27/17 08:14 07/27/17 08:14 07/27/17 08:14 - Medications Medications: Current Medications Docusate Sodium (Colace) 100 mg PO BID [facility] Hydromorphone HCl (Dilaudid) 2 mg IVP Q3H PRN PRN Reason: Pain, severe (8-10) Last Admin: 07/27/17 06:22 Dose: 2 mg Sodium Chloride (Sodium Chloride 0.9%) 1,000 mls @ 100 mls/hr IV .Q10H STA Stop: 07/27/17 13:31 Last Admin: 07/27/17 03:56 Dose: 100 mls/hr Pantoprazole Sodium (Protonix 40mg Ivpb) 40 mg in 100 mls @ 200 mls/hr IVPB 0600 MICHELLE Insulin Detemir (Levemir) 10 unit SC HS [facility]HELLE Insulin Human Regular (Humulin R High) 0 units SC ACHS [facility] PRN Reason: Protocol Lorazepam (Ativan) 0.5 mg PO BID [facility] PRN Reason: Protocol Metoprolol Tartrate (Lopressor) 25 mg PO BID [facility] Ondansetron HCl (Zofran Inj) 4 mg IVP Q6H PRN PRN Reason: Nausea/Vomiting Sucralfate (Carafate Tab) 1 gm PO BID [facility] - Labs Labs: 07/27/17 06:20 07/27/17 06:20 PT 11.7 Seconds (9.9-11.8) 07/26/17 20:55 INR 1.08 (0.93-1.08) 07/26/17 20:55 APTT 28.7 Seconds (23.7-30.8) 07/26/17 20:55 - Constitutional Appears: Non-toxic - Head Exam Head Exam: NORMAL INSPECTION - Eye Exam Eye Exam: EOMI, Normal appearance - ENT Exam ENT Exam: Mucous Membranes Moist - Neck Exam Neck Exam: Full ROM - Respiratory Exam Respiratory Exam: NORMAL BREATHING PATTERN. absent: Accessory Muscle Use, Respiratory Distress - Cardiovascular Exam Cardiovascular Exam: Tachycardia, +S1, +S2 - Extremities Exam Extremities Exam: absent: Pedal Edema - Neurological Exam Neurological Exam: Awake, Oriented x3 - Psychiatric Exam Psychiatric exam: Normal Affect, Normal Mood - Skin Skin Exam: Dry, Intact, Normal Color, Warm Additional comments: TLC site at right IJ is C/D/I. Assessment and Plan - Assessment and Plan (Free Text) Assessment: 42F for poor vascular access s/p TLC insertion at Right IJ Day#1 Plan: TLC site at right IJ is C/D/I. Patient is hemodynamically stable. No surgical interventions needed at this time dw Dr. Johnathan Levy, DO PGY1
[2017-07-27] MEDS ORDERED: Erythromycin 500 mg Inj IVPB SCH (10:45)
--- NOTE | 2017-07-27 10:50 | CT ---
PROCEDURE: CT Abdomen and Pelvis without intravenous contrast HISTORY: abd pain, vomiting COMPARISON: 03/21/2017 TECHNIQUE: Oral contrast only. Contrast Dose: Radiation dose: Total exam DLP = 411 mGy-cm. This CT exam was performed using one or more of the following dose reduction techniques: Automated exposure control, adjustment of the mA and/or kV according to patient size, and/or use of iterative reconstruction technique. FINDINGS: LOWER THORAX: Unremarkable. LIVER: Unremarkable. No gross lesion or ductal dilatation. GALLBLADDER AND BILE DUCTS: Unremarkable. PANCREAS: Unremarkable. No gross lesion or ductal dilatation. SPLEEN: Unremarkable. ADRENALS: Unremarkable. No mass. KIDNEYS AND URETERS: Unremarkable. No hydronephrosis. No solid mass. There is a 2 cm cyst in the upper pole of the right kidney. VASCULATURE: Unremarkable. No aortic aneurysm. BOWEL: Unremarkable. No obstruction. No gross mural thickening. APPENDIX: Unremarkable. Normal appendix. PERITONEUM: Unremarkable. No free fluid. No free air. LYMPH NODES: Unremarkable. No enlarged lymph nodes. BLADDER: Unremarkable. REPRODUCTIVE: Bilateral ovarian cysts. No evidence of cyst rupture BONES: No acute fracture. OTHER FINDINGS: None. IMPRESSION: No acute intra-abdominal findings
[2017-07-27] MEDS: Insulin Reg-HIGH-Coverage SC SCH ×2 (11:58→17:25)
--- NOTE | 2017-07-27 13:48 | CARD ---
APPROVED REPORT EKG Measurement Heart [id number] <Conclusion> Sinus tachycardia Possible Left atrial enlargement Borderline ECG
--- NOTE | 2017-07-27 14:41 | HP ---
HISTORY OF PRESENT ILLNESS: She came to the emergency room last night with a weeks' worth of nausea, vomiting, severe abdominal pain. It was not stopped by morphine or Dilaudid and I had a call late last night, put her in the hospital for severe abdominal pain, gastroparesis and elevated blood sugar. She came in at 11:30 last night. She is a 42-year-old female with severe abdominal pain and gastroparesis for about a week with nausea and vomiting. She could not take anymore, the pain got real bad and came to the emergency room. PAST MEDICAL HISTORY: She has past medical history of diabetes, gastroparesis, hypertension, duodenal ulcers, and GERD. She also has been noncompliant with her medications. She has been to [facility], where she received Botox injections for gastroparesis in the past helped minimally. FAMILY HISTORY: Hypertension and diabetes. SOCIAL HISTORY: Nonsmoker, nondrinker, no drugs. She had endoscopies. ALLERGIES: SHE HAS ALLERGY TO REGLAN. MEDICATION LIST: Norvasc, Carafate, Protonix, sulfa, Lopressor, Ativan, Levemir, and Colace. She does have little bit of neuropathy. She has had DKA before in the past. She had diabetic foot ulcers in the past. She had osteomyelitis of the left foot in 2014. REVIEW OF SYSTEMS: On review of systems, no acute vision or hearing changes, no sore throat, no neck pain, no chest pain, no palpitations. No shortness of breath or cough. She has severe abdominal pain, nausea, vomiting. No diarrhea. No problems urinating. There is some back pain from time to time. Skin for the most part, no rashes that she knows of. No headache or dizziness or sweating. No anxiety or depression. PHYSICAL EXAMINATION: VITAL SIGNS: She has 98.9 temperature, 133 pulse, 20 respiratory rate, 131/68 blood pressure, and 99% O2 sat on room air. HEENT: Head is atraumatic and normocephalic. Extraocular muscles are intact. Pupils are equal and reactive to light and accommodation. Throat is dry. NECK: Supple. HEART: Regular rate. Normal S1 and S2. LUNGS: Decreased breath sounds, but clear to auscultation. Poor inspiration. ABDOMEN: Diffusely tender. She is now medicated on Dilaudid, a little bit soft or decreased bowel sounds. EXTREMITIES: No edema. NEUROLOGIC: GCS is 55. Cranial nerves II through XII grossly intact. Normal speech. SKIN: Warm and dry. No rashes are appreciated. Alert and oriented x3. LYMPH: Thyroid midline. No palpable lymphadenopathy appreciated. LABORATORY DATA: She had multiple tests. Urine has moderate bilirubin, negative leukocytes, negative . Sodium 139, potassium 4.3, BUN is 20, and creatinine is 1. GFR is greater than 60. Blood sugar is 162. She is now back on insulin coverage and back on her insulin, it was 450 today. We will address that. Calcium is 9.5. Total bilirubin is 1.1, AST is 23, ALT is 30, alkaline phosphatase 103, troponin is 0.02, total protein 7.9, albumin is 4.5, globulin is 3.4, amylase is 69, and lipase is 19. INR is 1.08. White count is 8.8, hemoglobin 12.3, hematocrit 36.9, and platelets 303. She has pH of 7.33. CAT scan of the abdomen and pelvis are pending. She has chest x-ray, which showed no active disease. She is here for severe abdominal pain, intractable nausea and vomiting, gastroparesis, diabetes, and hypertension, from a GI consult. We will watch her very closely, presently she is in observation status. David Theodore DO
[2017-07-27] MEDS ORDERED: Insulin Detemir 100 units/ml Vial (Levemir) SC SCH (22:00)
[2017-07-28] MEDS: HYDROmorphone 2 mg/ml ISec IVP PRN (03:24)
[2017-07-28] MEDS: Pantoprazole 40mg/100ml IVPB 40 MG/100 ML BAG IVPB SCH (06:02)
[2017-07-28 07:05] LABS: HEMATOCRIT 34.6 % (36.0-48.0); MEAN CELL VOLUME 84.8 fl (80.0-105.0); MEAN CORPUSCULAR HEMOGLOBIN 27.5 pg (25.0-35.0); MEAN CORPUSCULAR HGB CONC 32.4 g/dl (31.0-37.0); MEAN PLATELET VOLUME 8.9 fl (7.0-11.0); RED CELL DISTRIBUTION WIDTH 14.5 % (11.5-14.5); WHITE BLOOD COUNT 9.7 10^3/ul (4.5-11.0)
[2017-07-28 07:27] LABS: ALB/GLOB RATIO 1.3 (1.1-1.8); ALKALINE PHOSPHATASE 88 U/L (38-126); ALT/SGPT 33 U/L (7-56); AST/SGOT 18 U/L (14-36); BILIRUBIN,TOTAL 0.8 mg/dL (0.2-1.3); BLOOD UREA NITROGEN 18 mg/dL (7-21); CARBON DIOXIDE 18 mmol/L (21-33); CHLORIDE 103 mmol/L (98-107); GFR AFRICAN-AMERICAN > 60; GLUCOSE,RANDOM 215 mg/dL (70-110); POTASSIUM 4.1 mmol/L (3.6-5.0); SODIUM 137 mmol/L (132-148); TOTAL PROTEIN 7.3 g/dL (5.8-8.3)
--- NOTE | 2017-07-28 09:04 | CP.PCM.PN ---
<Wandy Hsieh - Last Filed: 07/28/17 11:58> Subjective - Date & Time of Evaluation Date of Evaluation: 07/28/17 Time of Evaluation: 09:01 - Subjective Subjective: Gastroenterology Fellow/PGY5 Progress Note Patient states she feels much better today. Tolerated clear liquid diet yesterday. Notes one episode of scant bilious vomitus overnight. Denies bowel movement. A 12-point review of systems negative except for as above. Objective - Vital Signs/Intake and Output Vital Signs (last 24 hours): Temp Pulse Resp BP Pulse Ox 97.7 F 99 H 20 169/90 H 99 07/28/17 00:00 07/28/17 06:00 07/28/17 00:00 07/28/17 00:00 07/28/17 00:00 Intake and Output: 07/28/17 07/28/17 06:59 18:59 Intake Total 1285 Balance 1285 - Medications Medications: Current Medications Docusate Sodium (Colace) 100 mg PO BID [facility] Last Admin: 07/27/17 17:25 Dose: 100 mg Hydromorphone HCl (Dilaudid) 2 mg IVP Q3H PRN PRN Reason: Pain, severe (8-10) Last Admin: 07/28/17 03:24 Dose: 2 mg Pantoprazole Sodium (Protonix 40mg Ivpb) 40 mg in 100 mls @ 200 mls/hr IVPB 0600 [facility] Last Admin: 07/28/17 06:02 Dose: 200 mls/hr Erythromycin 250 mg/ Sodium (Chloride) 100 mls @ 100 mls/hr IVPB Q8H [facility] Last Admin: 07/28/17 03:17 Dose: 100 mls/hr Insulin Detemir (Levemir) 10 unit SC HS [facility] Last Admin: 07/27/17 22:19 Dose: 10 unit Insulin Human Regular (Humulin R High) 0 units SC ACHS [facility] PRN Reason: Protocol Last Admin: 07/27/17 17:25 Dose: 4 units Lorazepam (Ativan) 0.5 mg PO BID [facility] PRN Reason: Protocol Last Admin: 07/27/17 17:24 Dose: 0.5 mg Metoprolol Tartrate (Lopressor) 25 mg PO BID [facility] Last Admin: 07/27/17 17:26 Dose: 25 mg Ondansetron HCl (Zofran Inj) 4 mg IVP Q6H PRN PRN Reason: Nausea/Vomiting Sucralfate (Carafate Tab) 1 gm PO BID [facility] Last Admin: 07/27/17 17:25 Dose: 1 gm - Labs Labs: 07/28/17 06:30 07/28/17 06:30 PT 11.7 Seconds (9.9-11.8) 07/26/17 20:55 INR 1.08 (0.93-1.08) 07/26/17 20:55 APTT 28.7 Seconds (23.7-30.8) 07/26/17 20:55 - Constitutional Appears: Non-toxic, No Acute Distress - Head Exam Head Exam: ATRAUMATIC, NORMOCEPHALIC - Eye Exam Eye Exam: EOMI, PERRL Pupil Exam: PERRL. absent: Miosis, Mydriatic - ENT Exam ENT Exam: Mucous Membranes Moist, Normal Oropharynx - Respiratory Exam Respiratory Exam: Clear to Ausculation Bilateral. absent: Rales, Rhonchi, Wheezes - Cardiovascular Exam Cardiovascular Exam: RRR, +S1, +S2. absent: Gallop, Rubs - GI/Abdominal Exam GI & Abdominal Exam: Soft, Normal Bowel Sounds. absent: Distended, Firm, Guarding, Rigid, Tenderness, Organomegaly, Rebound - Extremities Exam Extremities Exam: Normal Inspection. absent: Pedal Edema - Neurological Exam Neurological Exam: Alert, Awake - Psychiatric Exam Psychiatric exam: Normal Affect, Normal Mood - Skin Skin Exam: Dry, Intact, Normal Color, Warm Assessment and Plan - Assessment and Plan (Free Text) Assessment: 42 year old female with history of Hypertension, PUD and LAGC esophagitis 11/2016 , Type 1 Diabetes, Gastroparesis s/p Botox (2013, 04/2017) presenting with nausea and vomiting. Active treatment of gastroparesis exacerbation. Prior EGD with Botox injection. No prior colonoscopy. Plan: >on erythromycin 250 Q8H day 2 >improve glycemic control >full liquid diet, advance as tolerated >small, low fat, frequent meals >avoid narcotic use >continue bowel regimen >follow up with established [facility] on discharge <Maxime Wong - Last Filed: 07/28/17 12:03> Objective - Vital Signs/Intake and Output Vital Signs (last 24 hours): Temp Pulse Resp BP Pulse Ox 97.7 F 110 H 20 140/90 99 07/28/17 00:00 07/28/17 09:21 07/28/17 00:00 07/28/17 09:21 07/28/17 00:00 Intake and Output: 07/28/17 07/28/17 06:59 18:59 Intake Total 1285 Balance 1285 - Medications Medications: Current Medications Docusate Sodium (Colace) 100 mg PO BID [facility] Last Admin: 07/28/17 09:20 Dose: 100 mg Hydromorphone HCl (Dilaudid) 1 mg IVP Q4H PRN PRN Reason: Pain, severe (8-10) Last Admin: 07/28/17 11:20 Dose: 1 mg Pantoprazole Sodium (Protonix 40mg Ivpb) 40 mg in 100 mls @ 200 mls/hr IVPB 0600 [facility] Last Admin: 07/28/17 06:02 Dose: 200 mls/hr Erythromycin 250 mg/ Sodium (Chloride) 100 mls @ 100 mls/hr IVPB Q8H [facility] Last Admin: 07/28/17 11:01 Dose: 100 mls/hr Insulin Detemir (Levemir) 15 unit SC HS [facility] Insulin Human Regular (Humulin R High) 0 units SC ACHS [facility] PRN Reason: Protocol Last Admin: 07/28/17 09:20 Dose: 7 units Lorazepam (Ativan) 0.5 mg PO BID [facility] PRN Reason: Protocol Last Admin: 07/28/17 09:21 Dose: 0.5 mg Metoprolol Tartrate (Lopressor) 25 mg PO BID [facility] Last Admin: 07/28/17 09:21 Dose: 25 mg Ondansetron HCl (Zofran Inj) 4 mg IVP Q6H PRN PRN Reason: Nausea/Vomiting Last Admin: 07/28/17 11:28 Dose: 4 mg Sucralfate (Carafate Tab) 1 gm PO BID [facility] Last Admin: 07/28/17 09:21 Dose: 1 gm - Labs Labs: 07/28/17 06:30 07/28/17 06:30 PT 11.7 Seconds (9.9-11.8) 07/26/17 20:55 INR 1.08 (0.93-1.08) 07/26/17 20:55 APTT 28.7 Seconds (23.7-30.8) 07/26/17 20:55 Attending/Attestation - Attestation I have personally seen and examined this patient.: Yes I have fully participated in the care of the patient.: Yes I have reviewed all pertinent clinical information, including history, physical exam and plan: Yes Notes (Text): 07/28/17 11:59 I have seen and examined patient with GI fellow. No acute events overnight. Patient reports one episode of vomiting earlier this morning. Was able to tolerate liquids for breakfast without difficulty. She continues to endorse b/ l lower quadrant abdominal pain but denies fever/chills. Review of vitals from today shows tachycardia and elevated BP. HTN PUD DM Abdominal pain, nausea, vomiting - gastroparesis s/p recent botox by primary GI physician - Diet as tolerated - small frequent meals throughout the day - Patient started on erythromycin by PMD, continue to monitor - Anti-emetic therapy PRN - Needs optimized blood glucose control - Will continue to monitor patient clinical course. Following hospital discharge, patient to follow up with primary GI physician at [facility].
[2017-07-28] MEDS: Insulin Reg-HIGH-Coverage SC SCH ×4 (09:20→22:11)
[2017-07-28] MEDS: HYDROmorphone 1 mg/ml ISec IVP PRN ×3 (11:20→21:42)
[2017-07-28] MEDS: Insulin Detemir 100 units/ml Vial (Levemir) SC SCH (22:12)
--- NOTE | 2017-07-29 02:05 | DS ---
HISTORY OF PRESENT ILLNESS: I saw this morning resting comfortably in bed. She slept well, less pain. She ate her breakfast, which appears fairly well this morning. No nausea, vomiting, that I could tell at this time. I will increase her diet to regular for lunch; if she does well with that, we will discharge her this afternoon. She will be on Ativan, Carafate, Colace, insulin, Lopressor, Protonix, and Zofran, she got these medicines at home. PHYSICAL EXAMINATION: VITAL SIGNS: Temperature 97.7, pulse 99, blood pressure 169/90, respiratory rate 20, saturation 99% on room air. HEENT: Head is atraumatic, normocephalic. HEART: Regular rate. LUNGS: Clear to auscultation. ABDOMEN: Soft, nontender. Positive bowel sounds. No guarding, no rebound. No CVA tenderness. EXTREMITIES: No edema. LABORATORY DATA: She has white count of 9.7, hemoglobin 11.2, hematocrit 34.6, and platelets 275. 137 sodium, potassium 4.1, BUN of 18, creatinine 0.8, GFR is greater than 60, sugar is 215, calcium is 9, total bilirubin is 0.88. AST is 18, ALT is 33, alkaline phosphatase 88. Total protein is 7.3. Albumin is 4.1. PLAN: She was seen by GI today and they felt she was doing much better, also the plan into the discharge her hopefully this afternoon, increased a diet to regular, put her back on a regular medications, decreasing, and stop using the pain medications and followup as an outpatient. Hopefully, discharged this afternoon and nurse will call me at 1:30 and let me know how she do at lunch. She is here for gastroparesis, severe abdominal pain, nausea, and vomiting. She has history of diabetes and hypertension. David Theodore DO
[2017-07-29] MEDS: HYDROmorphone 1 mg/ml ISec IVP PRN ×3 (03:35→21:35)
[2017-07-29] MEDS: Pantoprazole 40mg/100ml IVPB 40 MG/100 ML BAG IVPB SCH (05:42)
[2017-07-29] MEDS: Insulin Reg-HIGH-Coverage SC SCH ×4 (10:06→22:16)
--- NOTE | 2017-07-29 10:36 | PN ---
DATE: SUBJECTIVE: Yesterday, I tried to increase her diet and discharge her yesterday afternoon, but she was her diet to full liquids, still not a 100%, still with nauseous. She was changed to an inpatient. MEDICATIONS: She is currently on Ativan, Carafate, Colace, Dilaudid, erythromycin, insulin coverage, Levemir, Lopressor, Protonix and Zofran. PHYSICAL EXAMINATION: VITAL SIGNS: Are 98.5 temperature, 96 pulse, 127/72 blood pressure, 18 respiratory rate and 98% O2 saturation on room air. HEENT: Head is atraumatic and normocephalic. HEART: Regular rate. LUNGS: Clear to auscultation. ABDOMEN: Soft, nontender. Positive bowel sounds. No guarding, no rebound. No CVA tenderness. Maybe a little bit better. She has indigestion and she is nauseous. EXTREMITIES: No edema. LABORATORY DATA: She has a 137 sodium, potassium 4.1, BUN of 18, creatinine 0.8, GFR is greater than 60, sugar is down to 215, calcium is 9. Total bilirubin is 0.88, AST is 18, ALT is 33 and alkaline phosphatase is 88. Total protein is 7.3. White count 9.7, hemoglobin 11.2, hematocrit 34.6, and platelets are 275. ASSESSMENT AND PLAN: She is being seen by GI. She understands that he was up her back to down to liquids. We will see how she does today. If she does well today, tomorrow increase her again and see if we can discharge her tomorrow afternoon if she eats regular food tomorrow. Check her labs. She has still nausea and vomiting intractable, abdominal pain, gastroparesis and diabetes. David Theodore DO MTDRuth Ann
--- NOTE | 2017-07-29 10:42 | CP.PCM.PN ---
Subjective - Date & Time of Evaluation Date of Evaluation: 07/29/17 Time of Evaluation: 10:37 - Subjective Subjective: Patient seen and examined, resting comfortably in bed. She continues to endorse generalized abdominal pain and had 3 episodes of non-bloody emesis overnight, none today thus far. She attempted solid food consumption yesterday but still unable to tolerate without vomiting. Review of vitals from today are normal. 12 point review of systems performed, negative aside from mentioned above. Objective - Vital Signs/Intake and Output Vital Signs (last 24 hours): Temp Pulse Resp BP Pulse Ox 98.5 F 96 H 18 128/76 98 07/29/17 08:06 07/29/17 10:05 07/29/17 08:06 07/29/17 10:05 07/29/17 08:06 Intake and Output: 07/29/17 07/29/17 06:59 18:59 Intake Total 540 Balance 540 - Medications Medications: Current Medications Docusate Sodium (Colace) 100 mg PO BID [facility] Last Admin: 07/29/17 10:06 Dose: 100 mg Hydromorphone HCl (Dilaudid) 1 mg IVP Q4H PRN PRN Reason: Pain, severe (8-10) Last Admin: 07/29/17 03:35 Dose: 1 mg Pantoprazole Sodium (Protonix 40mg Ivpb) 40 mg in 100 mls @ 200 mls/hr IVPB 0600 [facility] Last Admin: 07/29/17 05:42 Dose: 200 mls/hr Erythromycin 250 mg/ Sodium (Chloride) 100 mls @ 100 mls/hr IVPB Q8H [facility] Last Admin: 07/29/17 03:45 Dose: 100 mls/hr Insulin Detemir (Levemir) 15 unit SC HS [facility] Last Admin: 07/28/17 22:12 Dose: 15 unit Insulin Human Regular (Humulin R High) 0 units SC ACHS [facility] PRN Reason: Protocol Last Admin: 07/29/17 10:06 Dose: Not Given Lorazepam (Ativan) 0.5 mg PO BID [facility] PRN Reason: Protocol Last Admin: 07/29/17 10:05 Dose: 0.5 mg Metoprolol Tartrate (Lopressor) 25 mg PO BID [facility] Last Admin: 07/29/17 10:05 Dose: 25 mg Ondansetron HCl (Zofran Inj) 4 mg IVP Q6H PRN PRN Reason: Nausea/Vomiting Last Admin: 07/29/17 01:10 Dose: 4 mg Sucralfate (Carafate Tab) 1 gm PO BID [facility] Last Admin: 07/29/17 10:06 Dose: 1 gm - Labs Labs: PT 11.7 Seconds (9.9-11.8) 07/26/17 20:55 INR 1.08 (0.93-1.08) 07/26/17 20:55 APTT 28.7 Seconds (23.7-30.8) 07/26/17 20:55 - Constitutional Appears: Non-toxic, No Acute Distress - Head Exam Head Exam: NORMAL INSPECTION - Eye Exam Eye Exam: EOMI, Normal appearance - ENT Exam ENT Exam: Mucous Membranes Moist - Respiratory Exam Respiratory Exam: Clear to Ausculation Bilateral - Cardiovascular Exam Cardiovascular Exam: REGULAR RHYTHM, +S1, +S2 - GI/Abdominal Exam GI & Abdominal Exam: Soft, Tenderness, Normal Bowel Sounds Additional comments: generalized tenderness to palpation, no rebound/guarding - Extremities Exam Extremities Exam: Normal Inspection - Skin Skin Exam: Dry, Intact, Normal Color, Warm Assessment and Plan - Assessment and Plan (Free Text) Assessment: HTN DM Abdominal pain, gastroparesis Plan: - Small frequent meals as tolerated - Anti-emetic therapy PRN - Pro-motility agent as per PMD - Optimized blood glucose control - Reduce narcotic pain medication as this may contribute to ongoing presentation - Will continue to monitor patient clinical course
[2017-07-29] MEDS: Insulin Detemir 100 units/ml Vial (Levemir) SC SCH (22:40)
[2017-07-30] MEDS: HYDROmorphone 1 mg/ml ISec IVP PRN (02:45)
[2017-07-30] MEDS: Pantoprazole 40mg/100ml IVPB 40 MG/100 ML BAG IVPB SCH (05:26)
[2017-07-30 06:17] LABS: ALB/GLOB RATIO 1.1 (1.1-1.8); ALKALINE PHOSPHATASE 69 U/L (38-126); ALT/SGPT 29 U/L (7-56); AST/SGOT 28 U/L (14-36); BILIRUBIN,TOTAL 0.7 mg/dL (0.2-1.3); BLOOD UREA NITROGEN 9 mg/dL (7-21); CALCIUM 8.5 mg/dL (8.4-10.5); CARBON DIOXIDE 29 mmol/L (21-33); CHLORIDE 102 mmol/L (98-107); GFR AFRICAN-AMERICAN > 60; GLUCOSE,RANDOM 154 mg/dL (70-110); POTASSIUM 3.4 mmol/L (3.6-5.0); SODIUM 137 mmol/L (132-148)
[2017-07-30 06:33] LABS: HEMATOCRIT 31.8 % (36.0-48.0); MEAN CELL VOLUME 83.2 fl (80.0-105.0); MEAN CORPUSCULAR HEMOGLOBIN 27.7 pg (25.0-35.0); MEAN CORPUSCULAR HGB CONC 33.3 g/dl (31.0-37.0); MEAN PLATELET VOLUME 8.9 fl (7.0-11.0); WHITE BLOOD COUNT 5.5 10^3/ul (4.5-11.0)
--- NOTE | 2017-07-30 07:49 | CP.PCM.PN ---
Subjective - Date & Time of Evaluation Date of Evaluation: 07/30/17 Time of Evaluation: 07:45 - Subjective Subjective: I have seen and examined patient. She had a better night, only one episode of scant non-bloody emesis. Her abdominal pain has mostly resolved and she was able to sleep more during night. No reported fever/chills, she is asking for diet to be advanced. 12 point review of systems performed, negative aside from mentioned above. Objective - Vital Signs/Intake and Output Vital Signs (last 24 hours): Temp Pulse Resp BP Pulse Ox 99.3 F 103 H 20 140/81 100 07/29/17 17:32 07/29/17 17:32 07/29/17 17:32 07/29/17 17:32 07/29/17 17:32 Intake and Output: 07/30/17 07/30/17 06:59 18:59 Intake Total 630 Output Total 200 Balance 430 - Medications Medications: Current Medications Docusate Sodium (Colace) 100 mg PO BID [facility] Last Admin: 07/29/17 17:20 Dose: 100 mg Hydromorphone HCl (Dilaudid) 1 mg IVP Q4H PRN PRN Reason: Pain, severe (8-10) Last Admin: 07/30/17 02:45 Dose: 1 mg Pantoprazole Sodium (Protonix 40mg Ivpb) 40 mg in 100 mls @ 200 mls/hr IVPB 0600 [facility] Last Admin: 07/30/17 05:26 Dose: 200 mls/hr Erythromycin 250 mg/ Sodium (Chloride) 100 mls @ 100 mls/hr IVPB Q8H [facility] Last Admin: 07/30/17 02:30 Dose: 100 mls/hr Insulin Detemir (Levemir) 15 unit SC HS [facility] Last Admin: 07/29/17 22:40 Dose: 15 unit Insulin Human Regular (Humulin R High) 0 units SC ACHS [facility] PRN Reason: Protocol Last Admin: 07/29/17 22:16 Dose: Not Given Lorazepam (Ativan) 0.5 mg PO BID [facility] PRN Reason: Protocol Last Admin: 07/29/17 17:20 Dose: 0.5 mg Metoprolol Tartrate (Lopressor) 25 mg PO BID [facility] Last Admin: 07/29/17 17:20 Dose: 25 mg Ondansetron HCl (Zofran Inj) 4 mg IVP Q6H PRN PRN Reason: Nausea/Vomiting Last Admin: 07/30/17 03:31 Dose: 4 mg Sucralfate (Carafate Tab) 1 gm PO BID [facility] Last Admin: 07/29/17 17:20 Dose: 1 gm - Labs Labs: 07/30/17 05:45 07/30/17 05:45 PT 11.7 Seconds (9.9-11.8) 07/26/17 20:55 INR 1.08 (0.93-1.08) 07/26/17 20:55 APTT 28.7 Seconds (23.7-30.8) 07/26/17 20:55 - Constitutional Appears: Non-toxic, No Acute Distress - Head Exam Head Exam: NORMAL INSPECTION - Eye Exam Eye Exam: EOMI, Normal appearance - ENT Exam ENT Exam: Mucous Membranes Moist - Respiratory Exam Respiratory Exam: Clear to Ausculation Bilateral - Cardiovascular Exam Cardiovascular Exam: REGULAR RHYTHM, +S1, +S2 - GI/Abdominal Exam GI & Abdominal Exam: Soft, Normal Bowel Sounds Additional comments: non tender to palpation in four quadrants - Extremities Exam Extremities Exam: Normal Inspection - Skin Skin Exam: Dry, Intact, Normal Color, Warm Assessment and Plan - Assessment and Plan (Free Text) Assessment: HTN DM Abdominal pain, gastroparesis Plan: - Anti-emetic therapy PRN - Will advance diet as tolerated and observe - suggest small frequent meals throughout the day - Pro-motility agent (erythromycin) as per PMD - Optimize blood glucose control - Reduction of narcotic pain medication would be recommended as this may worsen acute condition - If patient tolerating PO diet, from GI perspective ok to discharge patient with subsequent outpatient follow up with primary GI physician at [facility]
[2017-07-30] MEDS: Insulin Reg-HIGH-Coverage SC SCH ×3 (08:30→17:30)
[2017-07-30] MEDS ORDERED: Potassium Chloride 10 mEq ER Tab PO ONE (10:53)
--- NOTE | 2017-07-30 15:32 | CP.PCM.PN ---
Subjective - Date & Time of Evaluation Date of Evaluation: 07/30/17 Time of Evaluation: 15:30 - Subjective Subjective: R IJ PICC pulled. Sterile technique maintained. Manual pressure. Pressure dressing with occlusive dressing applied. VSS Objective - Vital Signs/Intake and Output Vital Signs (last 24 hours): Temp Pulse Resp BP Pulse Ox 98.6 F 90 18 130/78 98 07/30/17 07:44 07/30/17 10:26 07/30/17 07:44 07/30/17 10:26 07/30/17 07:44 Intake and Output: 07/30/17 07/30/17 06:59 18:59 Intake Total 630 600 Output Total 200 Balance 430 600 - Medications Medications: Current Medications Docusate Sodium (Colace) 100 mg PO BID [facility] Last Admin: 07/30/17 10:26 Dose: 100 mg Pantoprazole Sodium (Protonix 40mg Ivpb) 40 mg in 100 mls @ 200 mls/hr IVPB 0600 [facility] Last Admin: 07/30/17 05:26 Dose: 200 mls/hr Erythromycin 250 mg/ Sodium (Chloride) 100 mls @ 100 mls/hr IVPB Q8H [facility] Last Admin: 07/30/17 10:32 Dose: Not Given Insulin Detemir (Levemir) 15 unit SC HS [facility] Last Admin: 07/29/17 22:40 Dose: 15 unit Insulin Human Regular (Humulin R High) 0 units SC ACHS [facility] PRN Reason: Protocol Last Admin: 07/30/17 11:19 Dose: 15 units Lorazepam (Ativan) 0.5 mg PO BID [facility] PRN Reason: Protocol Last Admin: 07/30/17 10:25 Dose: 0.5 mg Metoprolol Tartrate (Lopressor) 25 mg PO BID [facility] Last Admin: 07/30/17 10:26 Dose: 25 mg Ondansetron HCl (Zofran Inj) 4 mg IVP Q6H PRN PRN Reason: Nausea/Vomiting Last Admin: 07/30/17 03:31 Dose: 4 mg Sucralfate (Carafate Tab) 1 gm PO BID [facility] Last Admin: 07/30/17 10:26 Dose: 1 gm - Labs Labs: 07/30/17 05:45 07/30/17 05:45 PT 11.7 Seconds (9.9-11.8) 07/26/17 20:55 INR 1.08 (0.93-1.08) 07/26/17 20:55 APTT 28.7 Seconds (23.7-30.8) 07/26/17 20:55
[2017-07-30 16:55] VITALS: BP 113/76; PULSE 96; RESP 20; TEMP 99.5; O2SAT 100
--- NOTE | 2017-07-31 02:20 | DS ---
She actually ate her breakfast this morning, felt well. No nausea or vomiting. No blood. She is walking around. She is in good spirits. GI said she could leave if she was tolerating the diet. PHYSICAL EXAMINATION: VITAL SIGNS: Today are 98.6 temp, 90 pulse, 130/70 blood pressure, 18 respiratory rate, 98% sat on room air. HEENT: Head is atraumatic, normocephalic. HEART: Regular rate. LUNGS: Clear to auscultation. ABDOMEN: Soft, nontender. Positive bowel sounds. EXTREMITIES: No edema. It is the best I have seen her in the past 4 days. She is going to go home on her medications plus erythromycin for about another week. She has the medications already at home, she does not need any new prescriptions. Her blood test this morning, 137 sodium; potassium is 3.4, she was given potassium supplement; BUN 9; creatinine 0.7; GFR is greater than 60; sugar is 154; calcium is 8.5, total bili is 0.7, AST is 20 ALT is 29, alk phos 69, total protein is 6.0, albumin is 3.2. White count is 5.5, hemoglobin is 10.6, hematocrit 31.8, platelets are 225. INR is 1.08. She improved greatly since she has been here. She was being seen by GI and surgery. I will see her in the office this week. She knows to call me if anything changes. She was here for intractable nausea, vomiting, abdominal pain, gastroparesis and diabetes and she is finally well enough to be discharged. David Theodore DO
== END 2017-07-30 18:39 | disposition home or self-care (01) | DRG 19 ==
LOC: ED 19:46 → ERH 23:22 → 3RNO 07-27 02:45 → OBSVTOIN 07-28 13:58
PROVIDERS: ADMIT Family Medicine; ATTEND Family Medicine
PROC: 02HV33Z Insertion of Infusion Device into Superior Vena Cava, Percutaneous Approach (ICD-10-PCS; principal; 2017-07-27)
PROC: B543ZZA Ultrasonography of Right Jugular Veins, Guidance (ICD-10-PCS; 2017-07-27)
DX: E10.43 Type 1 diabetes mellitus with diabetic autonomic (poly)neuropathy (principal); K31.84 Gastroparesis; E10.42 Type 1 diabetes mellitus with diabetic polyneuropathy; K26.9 Duodenal ulcer, unspecified as acute or chronic, without hemorrhage or perforation; I10 Essential (primary) hypertension; K21.9 Gastro-esophageal reflux disease without esophagitis; K20.9 Esophagitis, unspecified; F41.9 Anxiety disorder, unspecified; Z87.11 Personal history of peptic ulcer disease; Z91.14 Patient's other noncompliance with medication regimen

== ENCOUNTER 2017-10-02 09:10 | Emergency (ER) | payer MEDICAID ==
[2017-10-02 09:20] VITALS: BMI 23.3
--- NOTE | 2017-10-02 09:55 | ED PDOC ---
Arrival/HPI - General Historian: Patient - History of Present Illness Time/Duration: < week (5 days ago ) Symptom Onset: Sudden Symptom Course: Unchanged - General Time Seen by Provider: 10/02/17 09:25 - History of Present Illness Narrative History of Present Illness (Text): 10/02/17 09:40 Shanelle Mancini is a 42 year old female, whose past medical history includes hypertension, diabetes, DKA, GERD, anxiety and osteomylitis, who presents to the emergency department complaining of abdominal pain that began after [place] [facility] [place]. Patient reports having nausea, vomiting and chest pain secondary to abdominal pain. Patient notes she is compliant with her medication. Patient denies fever, headache, shortness of breath, dysuria, or other complaints. PMD: Dr. Theodore (Crys Rodriguez) Associated Symptoms (Text): abdominal pain, nausea, vomiting, chest pain secondary to abdominal pain ( Crys Rodriguez) Past Medical History - Provider Review Nursing Documentation Reviewed: Yes - Infectious Disease Hx of Infectious Diseases: None - Tetanus Immunization Tetanus Immunization: Unknown - Past Medical History Past Medical History: No Previous - Cardiac Hx Cardiac Disorders: Yes Hx Hypertension: Yes - Pulmonary Hx Respiratory Disorders: No - Neurological Hx Neurological Disorder: Yes (NEUROPATHY) - HEENT Hx HEENT Disorder: Yes Other/Comment: wears glasses-nearsighted - Renal Hx Renal Disorder: No - Endocrine/Metabolic Hx Diabetes Mellitus Type 1: Yes (hx DKA) - Hematological/Oncological Hx Anemia: Yes - Integumentary Hx Dermatological Disorder: Yes (hx diabetic foot ulcers) - Musculoskeletal/Rheumatological Hx Falls: No Hx Osteomyelitis: Yes (left foot 2013) - Gastrointestinal Hx Gastrointestinal Disorders: Yes (gastritis,gastroparesis) Hx Gastroesophageal Reflux: Yes Hx Gastrointestinal Ulcer: Yes - Genitourinary/Gynecological Hx Urinary Tract Infection: Yes - Psychiatric Hx Psychophysiologic Disorder: Yes Hx Anxiety: Yes Hx Substance Use: No - Past Surgical History Past Surgical History: No Previous - Surgical History Hx Cardiac Catheterization: No - Anesthesia Hx Anesthesia: No Hx Anesthesia Reactions: No Hx Malignant Hyperthermia: No - Suicidal Assessment Feels Threatened In Home Enviroment: No Family/Social History - Physician Review Nursing Documentation Reviewed: Yes Family/Social History: Unknown Family HX Smoking Status: Never Smoked Hx Alcohol Use: No Hx Substance Use: No Hx Substance Use Treatment: No Allergies/Home Meds Allergies/Adverse Reactions: Allergies metoclopramide HCl [From Reglan] Adverse Reaction (Verified 07/26/17 19:48) VOMITING Home Medications: Home Meds Medication Instructions Recorded Confirmed Insulin Detemir [Levemir] 15 unit SC 05/11/17 07/26/17 Review of Systems - Review of Systems Constitutional: absent: Fevers Respiratory: absent: SOB, Cough Cardiovascular: Chest Pain (secondary to abdominal pain ) Gastrointestinal: Abdominal Pain, Nausea, Vomiting Genitourinary Female: absent: Dysuria Musculoskeletal: absent: Back Pain Skin: absent: Rash Neurological: absent: Headache, Dizziness Physical Exam Vital Signs Reviewed: Yes Blood Pressure: Hypertensive Respiratory Rate: Normal Appearance: Positive for: Well-Appearing, Non-Toxic Pain Distress: Mild Mental Status: Positive for: Alert and Oriented X 3 - Systems Exam Head: Present: Atraumatic, Normocephalic Pupils: Present: PERRL Extroacular Muscles: Present: EOMI Conjunctiva: Present: Normal Respiratory/Chest: Present: Clear to Auscultation, Good Air Exchange. No: Respiratory Distress, Accessory Muscle Use, Wheezes, Rales, Rhonchi Cardiovascular: Present: Regular Rate and Rhythm, Normal S1, S2. No: Murmurs Abdomen: Present: Tenderness (mild mid-epigastric tenderness ), Normal Bowel Sounds. No: Distention, Peritoneal Signs, Rebound, Guarding Neurological: Present: GCS=15, CN II-XII Intact, Speech Normal Skin: Present: Warm, Dry, Normal Color. No: Rashes Psychiatric: Present: Alert, Oriented x 3, Normal Insight, Normal Concentration Vital Signs Pulse Resp BP Pulse Ox 10/02/17 14:38 106 H 12 113/65 96 10/02/17 12:31 109 H 12 150/80 10/02/17 09:10 14 154/86 H Medical Decision Making - Lab Interpretations I have reviewed the lab results: Yes - EKG Interpretation Interpreted by ED Physician: Yes Type: 12 lead EKG ED Course and Treatment: 10/02/17 Impression: 42 year old female with mild mid-epigastric tenderness complaining of abdominal pain, nausea and vomiting. Differential Diagnosis included but are not limited to: Plan: -- Labs -- Urinalysis -- Toradol, Zofran, and Sodium Chloride -- Reassess and disposition ANION GAP NORMAL Progress Notes: 10/02/[address] Theodore, who is aware of plan and treatment. 10/02/17 14:06 Patient's chemistry is normal. EKG: Ordered, reviewed, and independently interpreted the EKG. Rate : BPM Rhythm : NSR Interpretation : No ST-segment elevations or depressions, no T-wave inversions, normal intervals. Comparison : No previous EKG for comparison. 10/02/17 14:52 (Jennifer,Haviva Y) - Lab Interpretations Microbiology Results: Microbiology Results 10/02/17 11:50 Urine Urine Culture - Final Escherichia Coli Lab Results: 10/02/17 10:30 10/02/17 13:00 Lab Results 10/02/17 13:00: Sodium 139, Chloride 108 H, Potassium 4.1, Carbon Dioxide 24, Anion Gap 11, BUN 31 H, Creatinine 0.8, Est GFR ( Amer) > 60, Est GFR ( Non-Af Amer) > 60, Random Glucose 67 L, Calcium 9.2, Total Bilirubin 1.0, AST 18 , ALT 26, Alkaline Phosphatase 70, Total Protein 7.1, Albumin 3.8, Globulin 3.3 , Albumin/Globulin Ratio 1.2, Lipase 14 L 10/02/17 11:50: Urine Color Yellow, Urine Appearance Sl cloudy, Urine pH 6.0, Ur Specific [place] 1.025, Urine Protein 30 H, Urine Glucose (UA) Negative, Urine Ketones 40 H, Urine Blood Large H, Urine Nitrate Positive H, Urine Bilirubin Negative, Urine Urobilinogen 0.2, Ur Leukocyte Esterase Trace H, Urine RBC Tntc, Urine WBC 2 - 5, Ur Epithelial Cells 1 - 3, Urine Bacteria Mod, Urine HCG, Qual Negative 10/02/17 10:30: pO2 55, VBG pH 7.36, VBG pCO2 47.0, VBG HCO3 26.6, VBG Total CO2 28.0, VBG O2 Sat (Calc) 88.9 H, VBG Base Excess 0.6, VBG Potassium 6.8 H*, Sodium 139.0, Chloride 107.0, Glucose 142 H, Lactate 1.3, FiO2 21.0, Venous Blood Potassium 6.8 H* 10/02/17 10:30: WBC 7.2 D, RBC 3.70, Hgb 10.2 L, Hct 31.4 L, MCV 84.9, MCH 27.6 , MCHC 32.5, RDW 15.7 H, Plt Count 415, MPV 9.3, Gran % 71.6 H, Lymph % (Auto) 22.2, [place] % (Auto) 5.7, Eos % (Auto) 0.4 L, Baso % (Auto) 0.1, Gran # 5.12, Lymph # 1.6, [place] # 0.4, Eos # 0.0, Baso # 0.01 10/02/17 09:23: POC Glucose (mg/dL) 231 H - Medication Orders Current Medication Orders: Discontinued Medications Sodium Chloride (Sodium Chloride 0.9%) 1,000 mls @ 200 mls/hr IV .Q5H MICHELLE Last Admin: 10/02/17 11:57 Dose: 200 mls/hr eMAR Start Stop Document 10/02/17 11:57 RG (Rec: 10/02/17 11:58 RG [id number]) Intravenous Solution Start Date 10/02/17 Start Time 10:00 End Date 10/02/17 End time 11:00 Total Infusion Time 60 Ketorolac Tromethamine (Toradol) 30 mg IV ONCE ONE Stop: 10/02/17 09:52 Last Admin: 10/02/17 11:57 Dose: 30 mg eMAR Start Stop Document 10/02/17 11:57 RG (Rec: 10/02/17 11:57 RG [id number]) Intravenous Solution Start Date 10/02/17 Start Time 11:[address] [facility] Pain Assessment Document 10/02/17 11:57 RG (Rec: 10/02/17 11:57 RG [id number]) Pain Reassessment Is this a pain reassessment? Yes Sleep Is patient sleeping during reassessment? No Presence of Pain Presence of Pain Yes Pain Scale Used Pain Scale Used Numeric Location Upper or Lower Upper Pain Location Body Site Chest Abdomen Description Description Constant Re-Assess: [facility] Pain Assessment Document 10/02/17 12:57 RG (Rec: 10/02/17 14:31 RG [id number]) Pain Reassessment Is this a pain reassessment? Yes Sleep Is patient sleeping during reassessment? No Presence of Pain Presence of Pain Yes Pain Scale Used Pain Scale Used Numeric Ondansetron HCl (Zofran Inj) 4 mg IV ONCE ONE Stop: 10/02/17 09:52 Last Admin: 10/02/17 11:57 Dose: 4 mg eMAR Start Stop Document 10/02/17 11:57 RG (Rec: 10/02/17 11:57 RG [id number]) Intravenous Solution Start Date 10/02/17 Start Time 11:57 - Scribe Statement The provider has reviewed the documentation as recorded by the Scribe - Scribe Statement Radha Gerber Provider Scribe Attestation: All medical record entries made by the Scribe were at my direction and personally dictated by me. I have reviewed the chart and agree that the record accurately reflects my personal performance of the history, physical exam, medical decision making, and the department course for this patient. I have also personally directed, reviewed, and agree with the discharge instructions and disposition. (Crys Rodriguez) Disposition/Present on Arrival - Present on Arrival Any Indicators Present on Arrival: No History of DVT/PE: No History of Uncontrolled Diabetes: Yes Urinary Catheter: No History Surgical Site Infection Following: None - Disposition Diagnosis: Diabetic gastroparesis Disposition: HOME/ ROUTINE Condition: IMPROVED Discharge Instructions (ExitCare): Diabetic Gastroparesis (DC) Additional Instructions: follow up with your primary doctor Dr theodore in the office in 2 days return to the ED with any worsening or concerning symptoms Referrals: David Theodore, [Primary Care Provider] - Follow up with primary Forms: [employer] ([place]ian) Addendum Addendum: 10/04/17 14:46 I left a voice message to pt to call us back GRETCHEN to review urine test. (Mary Phoenix)
[2017-10-02] MEDS ORDERED: Sodium Chloride 0.9% 1,000 ML IV SCH (10:00)
[2017-10-02 10:38] LABS: VENOUS BLOOD GAS BASE EXCESS 0.6 mmol/L (0.0-2.0); VENOUS BLOOD PH 7.36 (7.32-7.43)
[2017-10-02 10:41] LABS: BASO # 0.01 K/mm3 (0.0-2.0); BASO % 0.1 % (0.0-3.0); EOS % 0.4 % (1.5-5.0); GRAN # 5.12 (1.4-6.5); GRAN % 71.6 % (50.0-68.0); HEMATOCRIT 31.4 % (36.0-48.0); LYMPH # 1.6 (1.2-3.4); LYMPH % 22.2 % (22.0-35.0); MEAN CELL VOLUME 84.9 fl (80.0-105.0); MEAN CORPUSCULAR HEMOGLOBIN 27.6 pg (25.0-35.0); MEAN CORPUSCULAR HGB CONC 32.5 g/dl (31.0-37.0); MEAN PLATELET VOLUME 9.3 fl (7.0-11.0); MONO # 0.4 (0.1-0.6); MONO % 5.7 % (1.0-6.0); RED CELL DISTRIBUTION WIDTH 15.7 % (11.5-14.5); WHITE BLOOD COUNT 7.2 10^3/ul (4.5-11.0)
[2017-10-02 12:00] LABS: URINE BILIRUBIN NEGATIVE (NEGATIVE); URINE BLOOD LARGE (NEGATIVE); URINE GLUCOSE (UA) NEGATIVE (NEGATIVE); URINE KETONE 40 mg/dL (NEGATIVE); URINE LEUKOCYTE ESTERASE TRACE Leu/uL (NEGATIVE); URINE PROTEIN 30 mg/dL (<30 mg/dL); URINE UROBILINOGEN 0.2 E.U./dL (<1 E.U./dL)
[2017-10-02 12:01] LABS: URINE APPEARANCE SL CLOUDY (CLEAR); URINE COLOR YELLOW (YELLOW)
[2017-10-02 12:23] LABS: URINE BACTERIA MOD (NEG); URINE RBC TNTC /hpf (0-2)
[2017-10-02 12:33] VITALS: RESP 12
[2017-10-02 13:24] LABS: ALB/GLOB RATIO 1.2 (1.1-1.8); ALKALINE PHOSPHATASE 70 U/L (38-126); ALT/SGPT 26 U/L (7-56); AST/SGOT 18 U/L (14-36); BLOOD UREA NITROGEN 31 mg/dL (7-21); CALCIUM 9.2 mg/dL (8.4-10.5); CARBON DIOXIDE 24 mmol/L (21-33); CHLORIDE 108 mmol/L (98-107); GFR AFRICAN-AMERICAN > 60; GLUCOSE,RANDOM 67 mg/dL (70-110); LIPASE 14 U/L (23-300); POTASSIUM 4.1 mmol/L (3.6-5.0); SODIUM 139 mmol/L (132-148); TOTAL PROTEIN 7.1 g/dL (5.8-8.3)
[2017-10-02 14:40] VITALS: BP 113/65; PULSE 106; O2SAT 96
--- NOTE | 2017-10-02 23:14 | CARD ---
APPROVED REPORT EKG Measurement Heart [id number] <Conclusion> Sinus tachycardia Otherwise normal ECG
== END 2017-10-02 14:38 | disposition home or self-care (01) ==
LOC: ED 09:10
DX: E10.43 Type 1 diabetes mellitus with diabetic autonomic (poly)neuropathy (principal); K31.84 Gastroparesis; I10 Essential (primary) hypertension
CPT/HCPCS: 80053; 81001; 82803; 82948; 83690; 84703; 85025; 87086; 93005; 96360; 99284; J1885; J2405; J7040

== ENCOUNTER 2018-01-21 10:07 | Inpatient (IN) | payer MEDICAID ==
[2018-01-21] MEDS ORDERED: Sodium Chloride 0.9% 1,000 ML IV STA ×2 (10:19→12:10)
--- NOTE | 2018-01-21 10:26 | ED PDOC ---
Arrival/HPI <Florentin Williamson - Last Filed: 01/21/18 15:12> <LakeshaMir - Last Filed: 01/21/18 17:40> - General Chief Complaint: Palpitations Time Seen by Provider: 01/21/18 10:12 - History of Present Illness Narrative History of Present Illness (Text): 01/21/18 10:26 Pt is a 42 yo F with PMH of DM type 1, gastroparesis, HTN, Duodenal ulcers, and GERD presents to ED with nausea, vomiting, and palpitations. Pt states that her nausea and vomiting is likely due to her history of gastroparesis. Pt states that initially vomiting was clear, but today vomiting became brown/dark red. Patient has been unable to tolerate PO intake for the last few days and subsequently has not taken any of her diabetic medications. Patient also complaining of diffuse body aches. Patient states that palpitations started this morning. Pt denies CP, SOB, fever, chills, dysuria, SEGURA or dizziness. PMD: Ewelina (Florentin Williamson) Past Medical History - Provider Review Nursing Documentation Reviewed: Yes - Infectious Disease Hx of Infectious Diseases: None - Tetanus Immunization Tetanus Immunization: Unknown - Past Medical History Past Medical History: No Previous - Cardiac Hx Cardiac Disorders: Yes Hx Hypertension: Yes - Pulmonary Hx Respiratory Disorders: No - Neurological Hx Neurological Disorder: Yes (NEUROPATHY) - HEENT Hx HEENT Disorder: Yes Other/Comment: wears glasses-nearsighted - Renal Hx Renal Disorder: No - Endocrine/Metabolic Hx Diabetes Mellitus Type 1: Yes (hx DKA) - Hematological/Oncological Hx Anemia: Yes - Integumentary Hx Dermatological Disorder: Yes (hx diabetic foot ulcers) - Musculoskeletal/Rheumatological Hx Falls: No Hx Osteomyelitis: Yes (left foot 2014) - Gastrointestinal Hx Gastrointestinal Disorders: Yes (gastritis,gastroparesis) Hx Gastroesophageal Reflux: Yes Hx Gastrointestinal Ulcer: Yes - Genitourinary/Gynecological Hx Urinary Tract Infection: Yes - Psychiatric Hx Psychophysiologic Disorder: Yes Hx Anxiety: Yes Hx Substance Use: No - Past Surgical History Past Surgical History: No Previous - Surgical History Hx Cardiac Catheterization: No - Anesthesia Hx Anesthesia: No Hx Anesthesia Reactions: No Hx Malignant Hyperthermia: No - Suicidal Assessment Feels Threatened In Home Enviroment: No <Florentin Williamson - Last Filed: 01/21/18 15:12> Family/Social History - Physician Review Nursing Documentation Reviewed: Yes Family/Social History: Diabetes Smoking Status: Never Smoked Hx Alcohol Use: No Hx Substance Use: No Hx Substance Use Treatment: No <Florentin Williamson - Last Filed: 01/21/18 15:12> Allergies/Home Meds <Florentin Williamson - Last Filed: 01/21/18 15:12> <Mir Crowder - Last Filed: 01/21/18 17:40> Allergies/Adverse Reactions: Allergies metoclopramide HCl [From Reglan] Adverse Reaction (Verified 01/21/18 10:11) VOMITING Home Medications: Home Meds Medication Instructions Recorded Confirmed Insulin Detemir [Levemir] 15 unit SC HS 05/11/17 01/21/18 Review of Systems - Physician Review All systems were reviewed & negative as marked: Yes - Review of Systems Constitutional: Fatigue. absent: Weight Change, Fevers Eyes: Normal ENT: Normal Respiratory: Normal Cardiovascular: Palpitations. absent: Chest Pain, Syncope Gastrointestinal: Abdominal Pain, Nausea, Vomiting. absent: Constipation, Diarrhea Genitourinary Female: Normal. absent: Dysuria, Frequency, Hematuria Musculoskeletal: Myalgias (diffuse) Skin: Normal Neurological: Normal Endocrine: Polyuria, Polydipsia Hemo/Lymphatic: Normal Psychiatric: Normal <Florentin Williamson - Last Filed: 01/21/18 15:12> Physical Exam Vital Signs Reviewed: Yes Temperature: Afebrile Blood Pressure: Normal Pulse: Tachycardic Respiratory Rate: Normal Appearance: Positive for: Ill-Appearing, Uncomfortable Pain Distress: Moderate Mental Status: Positive for: Alert and Oriented X 3 Finger Stick Blood Glucose: 406 - Systems Exam Head: Present: Atraumatic, Normocephalic Extroacular Muscles: Present: EOMI Mouth: Present: Dry Pharnyx: Present: Normal Neck: Present: Normal Range of Motion Respiratory/Chest: Present: Clear to Auscultation. No: Respiratory Distress, Accessory Muscle Use, Wheezes, Rales, Rhonchi Cardiovascular: Present: Normal S1, S2, Tachycardic. No: Murmurs, Rub, Gallop Abdomen: Present: Tenderness. No: Distention, Peritoneal Signs, Rebound, Guarding Back: Present: Normal Inspection Upper Extremity: Present: Normal Inspection Lower Extremity: Present: Normal Inspection Neurological: Present: GCS=15, CN II-XII Intact Skin: Present: Warm, Dry Psychiatric: Present: Alert, Oriented x 3 <TeriFlorentin - Last Filed: 01/21/18 15:12> Vital Signs Temp Pulse Resp BP Pulse Ox 01/21/18 12:36 131 H 22 137/71 100 01/21/18 11:52 128 H 19 141/68 98 01/21/18 10:07 98.5 F 138 H 20 127/68 100 Medical Decision Making <Florentin Williamson - Last Filed: 01/21/18 15:12> - Critical Care Critical Care Minutes: 30 minutes - EKG Interpretation Interpreted by ED Physician: Yes Type: 12 lead EKG <Mir Crowder - Last Filed: 01/21/18 17:40> ED Course and Treatment: 01/21/18 10:47 Assessment: 42 yo F presents to ED with nausea, vomiting, and palpitations likely 2/2 DKA. Plan: - CBC - CMP - Cardiac iso - EKG - UA - ABG and VBG shock panel - 2 L NS bolus - Zofran - Protonix - Type and screen - CXR - Regular insulin bolus EKG showed sinus tachycardia with heightened t-waves in V3. Potassium on CMP WNL. Spoke to Dr. Theodore, requests Dr. Mann consult for central venous access and Dr. Campo for endocrinology consult. Poor venous access, central line will be needed. [employer] made aware. 01/21/18 11:40 Progress Note: Pt reassessed after administration of medications. Pt states that morphine did not improve pain. Patient is able to localize pain to epigastric region. Pt appears to be uncomfortable in bed and is unable to lie still. However, family states that her movements are not uncommon when she is well. Pt states that nausea and vomiting improved for a short period, but is vomiting again. Zofran ordered. 01/21/18 12:43 Progress Note: Patient reassessed. Pain is unchanged. Morphine ordered. CT abdomen/pelvis without contrast ordered. Spoke to Dr. Theodore, agrees with plan and accepts patient under his service. Spoke to Dr. Plunkett, agrees with plan and accepts patient to ICU. Impression: DKA, sepsis (Florentin Williamson) Patient Seen With Resident: In agreement with resident note which contains more details about the patient. Patient was seen and evaluated with resident. Came up with plan and treatment together. Patient evaluated upon arrival to ED. History supplemented by family. Patient is tachycardic and tachypneic, SMELLS OF ACETONE. She reportedly has not taken insulin for past two days. Patient reports "pain everywhere". She states she developed nausea and vomiting two days ago with abdominal pain, similar to past gastroparesis episodes. She is vomiting in ED, appears coffee ground. No hx of melena or bloody stool. She is tachycardic, denies chest pain or shortness of breath or pleuritic discomfort. No acute calf pain noted. 01/21/18 12:30 chest xray- Creator : Edward Peterson MD IMPRESSION: No active disease. 01/21/18 13:46 CT Abdomen and Pelvis without intravenous contrast Creator : Edward Peterson MD IMPRESSION: Bilateral ovarian cysts. Small amount of fluid in the cul-de-sac consistent with recent cyst rupture. 01/21/18 14:53 IV fluids given up to 2.5 Liters of NS in ED. Blood sugar improved with serial exams. ABG reviewed. UTI noted, although currently afebrile. Cannot exclude component of sepsis as remains tachycardic, uti noted, mildly elevated WBC. Patient on re-evaluation with improved pain after iv fluids and pain medication. Reviewed labs, imaging studies and exam with Dr. Rene Theodore, have also consulted casing mixer Dr. Plunkett who has also evaluated patient in ED. Suspect component of DKA. Will admit to icu for serial exams. Protonix has been ordered no further vomiting noted. There has been no bright red blood. 01/21/18 17:39 (Mir Crowder) - Lab Interpretations Lab Results: 01/21/18 10:53 01/21/18 10:53 Lab Results 01/21/18 12:09: POC Glucose (mg/dL) 370 H 01/21/18 11:28: Influenza Typ A,B (EIA) Negative for flu a/b 01/21/18 11:23: Urine Color Yellow, Urine Appearance Sl cloudy, Urine pH 6.0, Ur Specific [place] 1.025, Urine Protein 30 H, Urine Glucose (UA) >=1000, Urine Ketones 40 H, Urine Blood Trace-intact H, Urine Nitrate Negative, Urine Bilirubin Negative, Urine Urobilinogen 0.2, Ur Leukocyte Esterase Negative, Urine RBC 0 - 2, Urine WBC 1 - 3, Ur Epithelial Cells 0 - 2, Urine Bacteria Mod 01/21/18 10:53: Sodium 139, Chloride 103, Potassium 4.5, Carbon Dioxide 19 L, Anion Gap 22 H, BUN 22 H, Creatinine 0.9, Est GFR ( Amer) > 60, Est GFR ( Non-Af Amer) > 60, Random Glucose 458 H* D, Calcium 9.9, Total Bilirubin 1.7 H, AST 29, ALT 47, Alkaline Phosphatase 115, Lactate Dehydrogenase 562, Total Creatine Kinase 182, Troponin I < 0.01 D, Total Protein 8.3, Albumin 4.5, Globulin 3.8, Albumin/Globulin Ratio 1.2 01/21/18 10:53: pO2 58 H, VBG pH 7.28 L, VBG pCO2 46.0, VBG HCO3 21.6, VBG Total CO2 23.0, VBG O2 Sat (Calc) 89.1 H, VBG Base Excess -5.2 L, VBG Potassium 4.4, Sodium 139.0, Chloride 101.0, Glucose 467 H*, Lactate 2.0, FiO2 21.0, Venous Blood Potassium 4.4 01/21/18 10:53: WBC 11.3 H D, RBC 4.36, Hgb 11.8 L, Hct 36.2, MCV 83.0, MCH 27.1 , MCHC 32.6, RDW 15.9 H, Plt Count 328, MPV 9.1, Gran % 81.1 H, Lymph % (Auto) 15.9 L, [place] % (Auto) 2.8, Eos % (Auto) 0.1 L, Baso % (Auto) 0.1, Gran # 9.14 H , Lymph # (Auto) 1.8, [place] # (Auto) 0.3, Eos # (Auto) 0.0, Baso # (Auto) 0.01 01/21/18 10:51: pCO2 35, pO2 78.0 L, HCO3 19.8 L, ABG pH 7.36, ABG Total CO2 20.9 L, ABG O2 Saturation 94.0 L, ABG Base Excess -4.9 L, ABG Potassium 4.1, Sodium 143.0, Chloride 111.0 H, Glucose 416 H* D, Lactate 1.2, FiO2 21.0, Arterial Blood Potassium 4.1 01/21/18 10:45: Blood Type O POSITIVE, Antibody Screen Negative, BBK History Checked Patient has bt 01/21/18 10:16: POC Glucose (mg/dL) 406 H* - RAD Interpretation Radiology Orders: 01/21/18 11:09 CXR [CHEST PORTABLE] [RAD] Stat 01/21/18 12:32 ABD & PELVIS W/O PO OR IV CONT [CT] Stat - EKG Interpretation EKG Interpretation (Text): 01/21/18 14:58 EKG at 132 sinus tachycardia with possible left atrial enlargement (Mir Crowder) - Medication Orders Current Medication Orders: Hydromorphone HCl (Dilaudid) 0.5 mg IVP Q6H PRN PRN Reason: Pain, severe (8-10) Last Admin: 01/21/18 15:12 Dose: 0.5 mg [facility] Pain Assessment Document 01/21/18 15:12 JFR (Rec: 01/21/18 15:13 [facility]) Pain Reassessment Is this a pain reassessment? No Presence of Pain Presence of Pain Yes Pain Scale Used Pain Scale Used Numeric Location Pain Location Body Site Abdomen Description Description Constant Intensity of Pain at present 10 Pain Behavior Moaning Irritability Restlessness IVP Administration Document 01/21/18 15:12 JFR (Rec: 01/21/18 15:13 [id number]) Charges for Administration # of IVP Administrations 1 Re-Assess: [facility] Pain Assessment Document 01/21/18 16:12 JFR (Rec: 01/21/18 16:22 [id number]) Pain Reassessment Is this a pain reassessment? Yes Sleep Is patient sleeping during reassessment? Yes Sodium Chloride (Sodium Chloride 0.9%) 1,000 mls @ 100 mls/hr IV .Q10H MICHELLE Last Admin: 01/21/18 12:17 Dose: 100 mls/hr eMAR Start Stop Document 01/21/18 12:17 SRE (Rec: 01/21/18 12:17 SRE [id number]) Intravenous Solution Start Date 01/21/18 Start Time 12:17 Ceftriaxone Sodium (Rocephin 1 Gram Ivpb) 1 gm in 100 mls @ 100 mls/hr IVPB DAILY MICHELLE PRN Reason: Protocol Lorazepam (Ativan) 0.5 mg IVP Q6H PRN; Protocol PRN Reason: Anxiety Last Admin: 01/21/18 15:13 Dose: 0.5 mg IVP Administration Document 01/21/18 15:13 JF (Rec: 01/21/18 15:13 [facility][id number]) Charges for Administration # of IVP Administrations 1 Behavioural Document 01/21/18 15:13 [facility] (Rec: 01/21/18 15:13 [facility][id number]) Maintenance Maintenance Dose No Nonmedicinal Nonmedicinal Interventions Activity Behavior Behavior for Medication: Anxiety Re-Assess: Reassess Psych Meds Document 01/21/18 15:43 JF (Rec: 01/21/18 15:55 [id number]) Reassess Psych Med Effective Ondansetron HCl (Zofran Inj) 4 mg IVP Q4H PRN PRN Reason: Nausea/Vomiting Pantoprazole Sodium (Protonix Inj) 40 mg IVP DAILY MICHELLE Discontinued Medications Sodium Chloride (Sodium Chloride 0.9%) 1,000 mls @ 999 mls/hr IV .Q1H1M STA Stop: 01/21/18 11:19 Last Admin: 01/21/18 10:46 Dose: 999 mls/hr eMAR Start Stop Document 01/21/18 10:46 GMI (Rec: 01/21/18 10:46 [id number]) Intravenous Solution Start Date 01/21/18 Start Time 10:46 End Date 01/21/18 End time 10:46 Total Infusion Time 0 Sodium Chloride (Sodium Chloride 0.9%) 2,000 mls @ 999 mls/hr IV .Q2H1M STA Stop: 01/21/18 12:19 Last Admin: 01/21/18 11:20 Dose: 999 mls/hr eMAR Start Stop Document 01/21/18 11:20 SRE (Rec: 01/21/18 11:21 SRE [id number]) Intravenous Solution Start Date 01/21/18 Start Time 11:15 End Date 01/21/18 End time 12:15 Total Infusion Time 60 Sodium Chloride (Sodium Chloride 0.9%) 1,000 mls @ 999 mls/hr IV .Q1H1M STA Stop: 01/21/18 13:10 Last Admin: 01/21/18 12:10 Dose: Sodium Chloride (Sodium Chloride 0.9%) 500 mls @ 999 mls/hr IV .Q31M STA Stop: 01/21/18 12:40 Last Admin: 01/21/18 12:17 Dose: 999 mls/hr eMAR Start Stop Document 01/21/18 12:17 SRE (Rec: 01/21/18 12:18 SRE [id number]) Intravenous Solution Start Date 01/21/18 Start Time 12:17 End Date 01/21/18 End time 12:50 Total Infusion Time 33 Ceftriaxone Sodium (Rocephin 1 Gram Ivpb) 1 gm in 100 mls @ 100 mls/hr IVPB STAT STA PRN Reason: Protocol Stop: 01/21/18 13:31 Last Admin: 01/21/18 12:42 Dose: 100 mls/hr eMAR Start Stop Document 01/21/18 12:42 SRE (Rec: 01/21/18 12:43 SRE [id number]) Intravenous Solution Start Date 01/21/18 Start Time 12:43 End Date 01/21/18 End time 13:40 Total Infusion Time 57 Insulin Human Regular (Humulin R) 10 units SC STAT STA Stop: 01/21/18 11:24 Last Admin: 01/21/18 11:37 Dose: 10 units MAR Blood Glucose Document 01/21/18 11:37 SRE (Rec: 01/21/18 11:38 SRE [id number]) Blood Glucose Finger Stick Blood Glucose (70-120) 454 Subcutaneous Administrations Document 01/21/18 11:37 SRE (Rec: 01/21/18 11:38 SRE [id number]) Injection Site MAR Injection Site Left Arm Charges for Administration # of Subcutaneous Administrations 1 Morphine Sulfate (Morphine) 2 mg IVP STAT STA Stop: 01/21/18 11:07 Last Admin: 01/21/18 11:21 Dose: 2 mg MAR Pain Assessment Document 01/21/18 11:21 SRE (Rec: 01/21/18 11:21 SRE [id number]) Pain Reassessment Is this a pain reassessment? Yes Sleep Is patient sleeping during reassessment? No Presence of Pain Presence of Pain Yes Pain Scale Used Pain Scale Used Numeric Location Pain Location Body Site Abdomen Description Description Constant IVP Administration Document 01/21/18 11:21 SRE (Rec: 01/21/18 11:21 SRE [id number]) Charges for Administration # of IVP Administrations 1 Re-Assess: MAR Pain Assessment Document 01/21/18 12:21 SRE (Rec: 01/21/18 12:38 SRE [id number]) Pain Reassessment Is this a pain reassessment? Yes Sleep Is patient sleeping during reassessment? No Presence of Pain Presence of Pain Yes Pain Scale Used Pain Scale Used Numeric Morphine Sulfate (Morphine) 2 mg IVP STAT STA Stop: 01/21/18 12:34 Last Admin: 01/21/18 12:46 Dose: 2 mg MAR Pain Assessment Document 01/21/18 12:46 SRE (Rec: 01/21/18 12:46 SRE [id number]) Pain Reassessment Is this a pain reassessment? Yes Sleep Is patient sleeping during reassessment? No Presence of Pain Presence of Pain Yes Pain Scale Used Pain Scale Used Numeric Location Pain Location Body Site Abdomen Description Description Constant IVP Administration Document 01/21/18 12:46 SRE (Rec: 01/21/18 12:46 SRE [id number]) Charges for Administration # of IVP Administrations 1 Ondansetron HCl (Zofran Inj) 4 mg IVP STAT STA Stop: 01/21/18 10:36 Last Admin: 01/21/18 10:45 Dose: 4 mg IVP Administration Document 01/21/18 10:45 GMI (Rec: 01/21/18 10:46 [id number]) Charges for Administration # of IVP Administrations 1 Ondansetron HCl (Zofran Inj) 4 mg IVP STAT STA Stop: 01/21/18 12:00 Last Admin: 01/21/18 12:15 Dose: 4 mg IVP Administration Document 01/21/18 12:15 SRE (Rec: 01/21/18 12:15 SRE [id number]) Charges for Administration # of IVP Administrations 1 Pantoprazole Sodium (Protonix Inj) 40 mg IVP STAT STA Stop: 01/21/18 10:38 Last Admin: 01/21/18 10:46 Dose: 40 mg IVP Administration Document 01/21/18 10:46 GMI (Rec: 01/21/18 10:46 GMI [id number]) Charges for Administration # of IVP Administrations 1 Disposition/Present on Arrival - Present on Arrival History of DVT/PE: No History of Uncontrolled Diabetes: No Urinary Catheter: No History of Decub. Ulcer: No History Surgical Site Infection Following: None <Florentin Williamson - Last Filed: 01/21/18 15:12> - Present on Arrival Any Indicators Present on Arrival: Yes History of Uncontrolled Diabetes: Yes - Disposition Have Diagnosis and Disposition been Completed?: Yes Disposition Time: 12:00 Patient Plan: Admission, ICU <Mir Crowder - Last Filed: 01/21/18 17:40> - Disposition Diagnosis: Abdominal pain, DKA (diabetic ketoacidoses), Tachycardia, Hyperglycemia, Nausea & vomiting, GI bleed Disposition: HOSPITALIZED Patient Problems: Current Active Problems Problem Status Onset DKA (diabetic ketoacidoses) Acute GI bleed Acute Hyperglycemia Acute Nausea & vomiting Acute Tachycardia Acute Abdominal pain Chronic Condition: SERIOUS
[2018-01-21 10:54] LABS: ARTERIAL BLOOD GAS HCO3 19.8 mmol/L (21-28); ARTERIAL BLOOD GAS PCO2 35 mm/Hg (35-45); ARTERIAL BLOOD GAS PH 7.36 (7.35-7.45); ARTERIAL BLOOD GAS TCO2 20.9 mmol.L (22-28)
[2018-01-21 10:56] LABS: VENOUS BLOOD GAS BASE EXCESS -5.2 mmol/L (0.0-2.0); VENOUS BLOOD GAS PO2 58 mm/Hg (30-55); VENOUS BLOOD PH 7.28 (7.32-7.43)
[2018-01-21 10:57] LABS: BASO # 0.01 K/mm3 (0.0-2.0); BASO % 0.1 % (0.0-3.0); EOS % 0.1 % (1.5-5.0); GRAN # 9.14 (1.4-6.5); GRAN % 81.1 % (50.0-68.0); HEMOGLOBIN 11.8 g/dL (12.0-16.0); LYMPH # 1.8 (1.2-3.4); LYMPH % 15.9 % (22.0-35.0); MEAN CORPUSCULAR HEMOGLOBIN 27.1 pg (25.0-35.0); MEAN CORPUSCULAR HGB CONC 32.6 g/dl (31.0-37.0); MEAN PLATELET VOLUME 9.1 fl (7.0-11.0); MONO # 0.3 (0.1-0.6); MONO % 2.8 % (1.0-6.0); RBC 4.36 10^6/uL (3.5-6.1); RED CELL DISTRIBUTION WIDTH 15.9 % (11.5-14.5); WHITE BLOOD COUNT 11.3 10^3/ul (4.5-11.0)
[2018-01-21] MEDS ORDERED: Morphine 2 mg/ml ISec IVP STA ×2 (11:06→12:33)
[2018-01-21] MEDS ORDERED: Sodium Chloride 0.9% 2,000 ML IV STA (11:10)
[2018-01-21 11:14] LABS: ALB/GLOB RATIO 1.2 (1.1-1.8); ALBUMIN 4.5 g/dL (3.0-4.8); ALT/SGPT 47 U/L (7-56); AST/SGOT 29 U/L (14-36); BLOOD UREA NITROGEN 22 mg/dL (7-21); CALCIUM 9.9 mg/dL (8.4-10.5); GFR AFRICAN-AMERICAN > 60; GFR NON-AFRICAN AMERICAN > 60
[2018-01-21 11:21] LABS: TROPONIN I < 0.01 ng/mL
[2018-01-21] MEDS ORDERED: Insulin Regular 1 UNITS/0.01 ML ML SC STA (11:23)
[2018-01-21 11:43] LABS: URINE BILIRUBIN NEGATIVE (NEGATIVE); URINE BLOOD TRACE-INTACT (NEGATIVE); URINE GLUCOSE (UA) >=1000 mg/dL (NEGATIVE); URINE LEUKOCYTE ESTERASE NEGATIVE Leu/uL (NEGATIVE); URINE PROTEIN 30 mg/dL (<30 mg/dL); URINE UROBILINOGEN 0.2 E.U./dL (<1 E.U./dL)
[2018-01-21 11:45] LABS: URINE APPEARANCE SL CLOUDY (CLEAR); URINE COLOR YELLOW (YELLOW)
[2018-01-21 11:51] LABS: URINE BACTERIA MOD (NEG); URINE EPITHELIAL CELLS 0 - 2 /hpf (0-5); URINE RBC 0 - 2 /hpf (0-2)
[2018-01-21] MEDS ORDERED: Sodium Chloride 0.9% 500 ML IV STA (12:11)
[2018-01-21] MEDS: Sodium Chloride 0.9% 1,000 ML IV SCH ×2 (12:17→17:41)
--- NOTE | 2018-01-21 12:28 | RAD ---
HISTORY: palpitations COMPARISON: 07/27/2017 FINDINGS: LUNGS: No active pulmonary disease. PLEURA: No significant pleural effusion identified, no pneumothorax apparent. CARDIOVASCULAR: Normal. OSSEOUS STRUCTURES: No significant abnormalities. VISUALIZED UPPER ABDOMEN: Normal. OTHER FINDINGS: None. IMPRESSION: No active disease.
[2018-01-21] MEDS ORDERED: cefTRIAXone 1 gm 1 GM/100 ML BAG IVPB STA (12:32)
[2018-01-21] MEDS ORDERED: Insulin Regular 100 UNITS in Sodium Chloride 0.9% 99 ML IV PRN (12:35)
--- NOTE | 2018-01-21 13:43 | CT ---
PROCEDURE: CT Abdomen and Pelvis without intravenous contrast HISTORY: abdominal pain COMPARISON: None. TECHNIQUE: Without contrast. Contrast Dose: Radiation dose: Total exam DLP = 529 mGy-cm. This CT exam was performed using one or more of the following dose reduction techniques: Automated exposure control, adjustment of the mA and/or kV according to patient size, and/or use of iterative reconstruction technique. FINDINGS: LOWER THORAX: Unremarkable. LIVER: Unremarkable. No gross lesion or ductal dilatation. GALLBLADDER AND BILE DUCTS: Unremarkable. PANCREAS: Unremarkable. No gross lesion or ductal dilatation. SPLEEN: Unremarkable. ADRENALS: Unremarkable. No mass. KIDNEYS AND URETERS: Unremarkable. No hydronephrosis. No solid mass. VASCULATURE: Unremarkable. No aortic aneurysm. BOWEL: Unremarkable. No obstruction. No gross mural thickening. APPENDIX: Unremarkable. Normal appendix. PERITONEUM: Unremarkable. No free fluid. No free air. LYMPH NODES: Unremarkable. No enlarged lymph nodes. BLADDER: Unremarkable. REPRODUCTIVE: There is a small amount of fluid in the cul-de-sac. Bilateral ovarian cysts BONES: No acute fracture. OTHER FINDINGS: None. IMPRESSION: Bilateral ovarian cysts. Small amount of fluid in the cul-de-sac consistent with recent cyst rupture.
[2018-01-21 14:09] VITALS: BMI 21.4
[2018-01-21] MEDS ORDERED: HYDROmorphone 0.5 mg/0.5 ml ISec IVP PRN (14:53)
[2018-01-21 16:08] LABS: VENOUS BLOOD GAS BASE EXCESS -3.9 mmol/L (0.0-2.0); VENOUS BLOOD GAS PO2 69 mm/Hg (30-55); VENOUS BLOOD PH 7.34 (7.32-7.43)
[2018-01-21 16:45] LABS: ALB/GLOB RATIO 1.1 (1.1-1.8); ALBUMIN 3.4 g/dL (3.0-4.8); ALT/SGPT 37 U/L (7-56); AST/SGOT 18 U/L (14-36); BLOOD UREA NITROGEN 20 mg/dL (7-21); CALCIUM 8.7 mg/dL (8.4-10.5); GFR AFRICAN-AMERICAN > 60; GFR NON-AFRICAN AMERICAN > 60
[2018-01-21] MEDS ORDERED: Sodium Chloride 0.9% 1,000 ML IV SCH (19:44)
[2018-01-21] MEDS: HYDROmorphone 0.5 mg/0.5 ml ISec IVP PRN ×2 (19:53→22:39)
[2018-01-21] MEDS: Metoprolol 1 mg/ml Inj IVP PRN (20:08)
[2018-01-21 20:12] LABS: BASO # 0.01 K/mm3 (0.0-2.0); BASO % 0.1 % (0.0-3.0); GRAN # 7.4 (1.4-6.5); HEMOGLOBIN 10.7 g/dL (12.0-16.0); LYMPH % 10.8 % (22.0-35.0); MEAN CELL VOLUME 83.8 fl (80.0-105.0); MEAN CORPUSCULAR HEMOGLOBIN 26.3 pg (25.0-35.0); MEAN CORPUSCULAR HGB CONC 31.4 g/dl (31.0-37.0); MONO # 0.5 (0.1-0.6); MONO % 5.1 % (1.0-6.0); RBC 4.07 10^6/uL (3.5-6.1); WHITE BLOOD COUNT 8.8 10^3/ul (4.5-11.0)
[2018-01-21 20:40] LABS: ALB/GLOB RATIO 1.2 (1.1-1.8); ALBUMIN 4.1 g/dL (3.0-4.8); ALT/SGPT 37 U/L (7-56); AST/SGOT 18 U/L (14-36); BLOOD UREA NITROGEN 18 mg/dL (7-21); CALCIUM 9.2 mg/dL (8.4-10.5); GFR AFRICAN-AMERICAN > 60; GFR NON-AFRICAN AMERICAN > 60
[2018-01-21] MEDS: Insulin Detemir 100 units/ml Vial (Levemir) SC SCH ×2 (22:56→23:13)
[2018-01-21] MEDS ORDERED: Dextrose 5%/0.45% NS 1,000 ML IV SCH (23:15)
[2018-01-22] MEDS: HYDROmorphone 0.5 mg/0.5 ml ISec IVP PRN ×10 (00:47→23:43)
--- NOTE | 2018-01-22 02:18 | HP ---
HISTORY OF PRESENT ILLNESS: I was called down to the ER this morning in the Intensive Care Unit. This is a 42-year-old -[place]izen [place] female with nausea, vomiting, palpitations, has had gastroparesis before. She was vomiting clear and became brown, dark red. She cannot take any p.o. intake for the past few days, has not taken any of her diabetic medications, also with body aches. PAST MEDICAL HISTORY: She has a past medical history of diabetes type 1, gastroparesis, hypertension, duodenal ulcers, GERD, neuropathy, hypertension. She has no ascites. She has a history of DKA in the past. She had diabetic foot ulcers in the past. She had osteomyelitis of the left foot in 2013. She has gastritis, gastroparesis, GERD, gastrointestinal ulcer. She had urinary tract infections in the past. She has anxiety. FAMILY HISTORY: There is diabetes in her family. SOCIAL HISTORY: Never smoked. No alcohol. No drinking. ALLERGIES: SHE HAS ALLERGIES TO REGLAN. MEDICATIONS: She takes Levemir 15 units at bedtime. REVIEW OF SYSTEMS: She is very tired. No acute vision or hearing changes. No shortness of breath or cough. She has palpitations and chest pain. She has abdominal pain, nausea, vomiting. No constipation or diarrhea. No problems urinating. Positive body aches. Skin for the most part she can tell is intact. No rashes or ulcers. No anxiety or depression. There is increase in urination, more often she is urinating. PHYSICAL EXAMINATION GENERAL: She is ill appearing. She is weak. She is lethargic. She is alert and oriented x3. VITAL SIGNS: She has 98.5 temperature, 138 pulse, 22 respiratory rate, 127/68 blood pressure, 100% O2 sat. Blood sugar was 406. HEENT: Head is atraumatic, normocephalic. Extraocular muscles are intact. Throat is dry. NECK: Supple. HEART: Regular rate. LUNGS: Decreased breath sounds but clear to auscultation bilaterally. ABDOMEN: Tender allover. No guarding, no rebound. Decreased bowel sounds. No CVA tenderness. EXTREMITIES: No edema. NEUROLOGIC: GCS is 15. Cranial nerves II through XII grossly intact. Alert and oriented x3. SKIN: Warm and dry. No ulcers or rashes appreciated. LYMPHATICS: Thyroid midline. No palpable appreciable lymphadenopathy. LABORATORY DATA: She had a chest x-ray with no active disease. CAT scan of the head and pelvis with bilateral ovarian cysts, small amounts of fluid in the cul-de-sac consistent with cyst rupture. She had multiple labs negative for the flu. Urine was moderate bacteria and little bit of urinary tract infection. [id number] , potassium 4.5, BUN 22, creatinine 0.9. GFR is greater than 60. Sugar was 458 and 370, then 263, now it is 113. Calcium is 9.9, total bili is 1.7, AST is 29, ALT is 47, alkaline phosphatase 150, and lactate dehydrogenase is 562. Total protein to creatinine ratio is 182. Troponin I is less than 0.01. Total protein is 8.3, albumin is 4.5, globulin is 3.8. Blood gas, lactate was 2. Blood sugars are 416 and 467. She had a 11.3 white count, 11.8 hemoglobin, 36.2 hematocrit with 320 platelets. IMPRESSION: She is on intravenous fluids at 100 mL an hour. She was given Rocephin in the emergency room. She was on Protonix intravenous. She is on morphine for pain. Consulted Endocrinology in the Intensive Care Unit and Gastroenterology, and she is here for diabetic ketoacidosis, abdominal pain, elevated blood sugars, urinary tract infection and she is in the Intensive Care Unit. David Theodore DO
--- NOTE | 2018-01-22 02:23 | CON ---
DATE: 01/21/2018 BANK CLERK NOTE REQUESTING PHYSICIAN: Dr. Theodore. CHIEF COMPLAINT: Patient presented with severe abdominal pain and vomiting coffee ground vomitus. HISTORY OF PRESENT ILLNESS: Ms. Mancini is a 42-year-old female with history of diabetes type 1, gastroparesis, hypertension, duodenal ulcer, gastric ulcer and GERD. The patient presented with nauseousness and vomiting and palpitations as well as tachycardia and severe abdominal pain. She felt that the abdominal pain was secondary to gastroparesis. The patient stated that she has not taking her diabetic medications for the last 2 days. She denies chest pain, shortness of breath, fever, chills, dysuria, headache or dizziness. PAST MEDICAL HISTORY: As above. ALLERGIES: SHE HAS ALLERGIES TO REGLAN. MEDICATIONS: Can be evaluated as per the nurse's intake form. SOCIAL HISTORY: No history of smoking or EtOH abuse and no drug abuse. FAMILY HISTORY: Noncontributory. REVIEW OF SYSTEMS: CONSTITUTIONAL: Patient is fatigued and had the vomiting. HEENT: Within normal limits. RESPIRATORY: All normal. CARDIOVASCULAR: Does have some palpitations and is tachycardic. GASTROINTESTINAL: Abdominal pain, nauseousness and vomiting. GENITOURINARY: All normal. MUSCULOSKELETAL: Does have diffuse myalgias. SKIN: Normal. NEUROPSYCHIATRIC: All normal. ENDOCRINE: Polyuria and polydipsia. HEMATOLOGIC: All normal. IMMUNOLOGIC: All normal. PHYSICAL EXAMINATION: VITAL SIGNS: Her temperature is 98.5, her pulse is 119, respirations of 13, BP is 108/55. SKIN: Warm and dry. HEENT: Head atraumatic, normocephalic. Eyes reactive to light. Ear, nose and throat seemed to be within normal limits. NECK: Supple. No JVD. No thyroid enlargement or lymph nodes. HEART: Has regular rate and rhythm. Normal S1, S2, but tachycardic. LUNGS: Reveal good breath sounds bilaterally. ABDOMEN: Soft. Occasional bowel sounds, tender to palpation. No organomegaly noted. GENITALIA AND RECTAL: Deferred. MUSCULOSKELETAL: No joint deformities. EXTREMITIES: Reveal trace lower extremity edema. NEUROLOGIC: She seemed to be grossly intact. LABORATORY DATA: As far as her laboratories are concerned, her white count is 11.3, hemoglobin 11.8, hematocrit 36.2 with platelets of 328,000. Her sodium is 139, potassium 4.5, chloride 103, CO2 of 19, BUN of 22, creatinine of 0.9 and a glucose of 458. As far as her chest x-ray, reveals no active disease and her CT of the abdomen and pelvis reveals bilateral ovarian cysts, small amount of fluid in the cul-de-sac consistent with the recent cyst rupture. IMPRESSION: As far as my impression, this patient has history of diabetes, possible mild diabetic ketoacidosis at this point. She has severe abdominal pain most likely secondary to gastroparesis. The patient has bilateral ovarian cysts and has CT scan stated possible rupture of one of these cysts. Note that this may be contributing to her abdominal pain. Patient is noted to have increased white count, there may be a component of urinary tract infection and we must rule out sepsis. She has some dehydration and with vomiting and occasional coffee grounds there, we must consider gastrointestinal bleed as well. She has a history of hypertension and gastric as well as duodenal ulcers. She also has gastroesophageal reflux disease. Note that the patient is tachycardic at this time as well. PLAN: As far as our plan, we will continue with IV fluids. We will check her laboratories frequently and adjust as needed. The patient will get Protonix, Ativan as well as Zofran and will be n.p.o. at this time. We will give her Dilaudid for her pain. She has consults with Dr. Campo as well as Dr. Ziegler and Dr. Mann, Surgery. We will continue to treat aggressively and follow closely along with the other consultants and primary care doctor. Jose Plunkett MD
--- NOTE | 2018-01-22 04:32 | CON ---
DATE: ENDOCRINOLOGY CONSULTATION LOCATION: ICU 128, room 6. HISTORY OF PRESENT ILLNESS: This is a 42-year-old female with known history of type 1 insulin-dependent diabetes and diabetic gastroparesis presenting here with intractable nausea and vomiting and is now being referred for diabetic evaluation and management. PAST MEDICAL HISTORY: As mentioned above, history of type 1 insulin-dependent diabetes, currently on Levemir taken as 15 units at bedtime with sliding scale coverage, using Humalog insulin as given. History of hypertension and dyslipidemia, history of diabetic polyneuropathy and recurrent diabetic gastroparesis. She also has prior history of duodenal ulcers and GERD. 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 SOCIAL HISTORY: Patient has supportive family. No known substance use. REVIEW OF SYSTEMS: As mentioned above. Admits to generalized body weakness with progressive bouts of dizziness and lightheadedness worse on the day of admission. No chest pains, but admits to palpitations and progressive shortness of breath especially on exertion. Her oral intake has been variable and nil especially in the last 3 to 4 days with supervening nausea, dyspepsia and intractable vomiting episodes. Also admits to marked polyuria and nocturia as noted. PHYSICAL EXAMINATION: GENERAL: This is an average built female, in no apparent distress. VITAL SIGNS: Blood pressure of 140/80, pulse of 90 beats per minute and regular, temperature 99, respirations 20, height is 5 feet 9 inches, weight is 145 pounds. HEENT: Head normocephalic. Eyes anicteric with pink conjunctivae. Funduscopy not possible at this time. Ears, nose and throat otherwise normal. NECK: Supple. Thyroid gland is normal in size. No carotid bruits or cervical adenopathy. CARDIOPULMONARY: Some adynamic precordium. S1, S2 is rapid and regular. LUNGS: Clear to auscultation. ABDOMEN: Flat, soft with positive bowel sounds. EXTREMITIES: No peripheral edema. Pulses are +2 by bilaterally. LABORATORY DATA: Her Initial chemistries showed a BUN of 22, sodium 139, potassium 4.5, chloride 103, CO2 19, glucose 458, and creatinine 0.9. Her glucose values have ranged from 144 to 263 and 370 mg/dL. Liver transaminases are normal. ASSESSMENT: This is a 42-year-old female with uncontrolled type 1 insulin-dependent diabetes, presenting here with intractable vomiting related to diabetic gastroparesis, which is actually a type of autonomic neuropathy, quite common type 1 diabetics, with underlying diabetic polyneuropathy and peripheral arterial disease and vasculopathy. There is also biochemical evidence of mild metabolic acidosis as noted and this is more actually from starvation ketosis with nil oral intake in the last 3 to 4 days prior to admission. PLAN OF MANAGEMENT: As discussed with the nursing staff, we will add basal insulin tonight with Levemir given as 10 units subcu at bedtime daily even if she is n.p.o. as she continues to have hepatic gluconeogenesis especially when n.p.o. and with continued activation of the counterregulatory hormones causing continued glycemic production thereof. We will also modify the coverage scale to obviate hypoglycemia and detailed orders have been given and we will just actually recommend the low-dose correction scale as ordered. We will modify the IV fluids to D5 and half normal saline running at 125 mL per hour especially she is n.p.o. as she needs the necessary substrate for caloric replenishment and supplementation. We will obtain serial chemistries and supplement accordingly needed. We will obtain also a hemoglobin A1c to confirm her prior glycemic control and baseline serum cortisol and ACTH level and also a TSH level to exclude any underlying autoimmune endocrinopathy. We will obtain serial chemistries and supplement accordingly needed. As her vomiting subsides, then we will advance her diet to a soft mechanical moderate consistent carb diet as tolerated. We will then advance her to a more physiologic basal and bolus insulin drug combination as indicated. We will follow and advise accordingly. Tamara Campo MD
[2018-01-22 06:06] LABS: HEMOGLOBIN 10.7 g/dL (12.0-16.0); MEAN CELL VOLUME 84.3 fl (80.0-105.0); MEAN CORPUSCULAR HEMOGLOBIN 26.6 pg (25.0-35.0); MEAN CORPUSCULAR HGB CONC 31.6 g/dl (31.0-37.0); RBC 4.02 10^6/uL (3.5-6.1); RED CELL DISTRIBUTION WIDTH 16.3 % (11.5-14.5); WHITE BLOOD COUNT 7.8 10^3/ul (4.5-11.0)
[2018-01-22 06:33] LABS: LDL CHOLESTEROL 84 mg/dL (0-129)
[2018-01-22 06:56] LABS: ALB/GLOB RATIO 1.1 (1.1-1.8); ALBUMIN 4.1 g/dL (3.0-4.8); ALT/SGPT 36 U/L (7-56); AST/SGOT 37 U/L (14-36); BLOOD UREA NITROGEN 16 mg/dL (7-21); CALCIUM 9.3 mg/dL (8.4-10.5); GFR AFRICAN-AMERICAN > 60; GFR NON-AFRICAN AMERICAN > 60; HDL CHOLESTEROL 122 mg/dL (29-60); LIPASE 19 U/L (23-300)
[2018-01-22] MEDS ORDERED: Sodium Chloride 0.9% 1,000 ML IV SCH (07:30)
--- NOTE | 2018-01-22 08:18 | CARD ---
APPROVED REPORT EKG Measurement Heart [id number] <Conclusion> Sinus tachycardia. rSr Pattern V1-V2.
[2018-01-22] MEDS: Insulin Reg-LOW-Coverage SC SCH ×2 (08:40→12:27)
[2018-01-22] MEDS: cefTRIAXone 1 gm 1 GM/100 ML BAG IVPB SCH (09:25)
--- NOTE | 2018-01-22 09:33 | CP.CCUPN ---
<María Cisneros - Last Filed: 01/22/18 10:01> CCU Subjective - Physician Review Subjective (Free Text): 01/22/18 09:30 patient with no acute events overnight. Patient denies cp, or sob. Saturating well on room air. Complaining of abdominal discomfort. No fever or chills. Critical Care Time Spent (in minutes): 45 CCU Objective - Vital Signs / Intake & Output Vital Signs (Last 4 hours): Vital Signs Pulse Resp BP Pulse Ox 01/22/18 08:40 105 H 100 01/22/18 08:30 106 H 11 L 100 01/22/18 08:20 109 H 15 100 01/22/18 08:10 105 H 11 L 100 01/22/18 08:00 107 H 12 95/49 L 100 01/22/18 07:50 111 H 14 100 01/22/18 07:40 87 88 H 80 L 01/22/18 07:30 86 L 01/22/18 07:20 86 L 01/22/18 07:10 100 01/22/18 07:00 94 H 158/89 H 100 01/22/18 06:50 106 H 13 100 01/22/18 06:40 104 H 11 L 100 01/22/18 06:30 106 H 11 L 100 01/22/18 06:20 106 H 13 100 01/22/18 06:10 107 H 10 L 100 01/22/18 06:00 115 H 75 H 145/76 100 01/22/18 05:50 122 H 90 L 01/22/18 05:40 110 H 12 100 Intake and Output (Last 8hrs): Intake & Output 01/21/18 01/22/18 01/22/18 22:59 06:59 14:59 Intake Total 500 1475 Output Total 600 1150 Balance -100 325 Weight 160 lb 12.8 oz Intake: IV 500 1475 Left Antecubital 500 Right Antecubital 1475 Oral 0 Output: Urine 600 950 Urine, Voided 600 950 Emesis 200 Other: # Voids Urine, Voided 1 # Bowel Movements 0 - Physical Exam Head: Positive for: Atraumatic, Normocephalic Extroacular Muscles: Positive for: EOMI Mouth: Positive for: Dry Pharnyx: Positive for: Normal Neck: Positive for: Normal Range of Motion Respiratory/Chest: Positive for: Clear to Auscultation. Negative for: Respiratory Distress, Accessory Muscle Use, Wheezes, Rales, Rhonchi Cardiovascular: Positive for: Normal S1, S2. Negative for: Murmurs, Tachycardic , Bradycardic, Rub, Gallop Abdomen: Positive for: Tenderness. Negative for: Distention, Peritoneal Signs, Rebound, Guarding Back: Positive for: Normal Inspection Upper Extremity: Positive for: Normal Inspection Lower Extremity: Positive for: Normal Inspection Neurological: Positive for: GCS=15, CN II-XII Intact Skin: Positive for: Warm, Dry Psychiatric: Positive for: Alert, Oriented x 3 - Medications Active Medications: Active Medications Generic Name Dose Route Start Last Admin Trade Name Freq PRN Reason Stop Dose Admin Hydromorphone HCl 0.5 mg 01/21/18 19:43 01/22/18 07:41 Dilaudid IVP 0.5 mg Q2H PRN Administration Pain, severe (8-10) Ceftriaxone Sodium 1 gm in 100 mls @ 100 mls/hr 01/22/18 10:00 Rocephin 1 Gram Ivpb IVPB DAILY MICHELLE Protocol Sodium Chloride 1,000 mls @ 100 mls/hr 01/22/18 07:30 01/22/18 07:45 Sodium Chloride 0.9% IV 100 mls/hr .Q10H MICHELLE Administration Insulin Detemir 10 unit 01/21/18 22:00 01/21/18 23:13 Levemir SC 10 unit HS MICHELLE Administration Insulin Human Regular 0 units 01/22/18 07:30 01/22/18 08:40 Humulin R Low SC 4 units ACHS MICHELLE Administration Protocol Lorazepam 0.5 mg 01/21/18 14:55 01/21/18 23:23 Ativan IVP 0.5 mg Q6H PRN Administration Anxiety Protocol Metoprolol Tartrate 5 mg 01/21/18 19:04 01/21/18 20:08 Lopressor IVP 5 mg Q6 PRN Administration Systolic Blood Pressure Ondansetron HCl 4 mg 01/21/18 14:54 01/22/18 06:16 Zofran Inj IVP 4 mg Q4H PRN Administration Nausea/Vomiting Pantoprazole Sodium 40 mg 01/22/18 10:00 Protonix Inj IVP DAILY MICHELLE - Patient Studies Lab Studies: Lab Studies 01/22/18 01/22/18 01/22/18 Range/Units 05:51 05:25 05:25 WBC (4.5-11.0) 10^3/ul RBC (3.5-6.1) 10^6/uL Hgb (12.0-16.0) g/dL Hct (36.0-48.0) % MCV (80.0-105.0) fl MCH (25.0-35.0) pg MCHC (31.0-37.0) g/dl RDW (11.5-14.5) % Plt Count (120.0-450.0) 10^3/uL MPV (7.0-11.0) fl Gran % (50.0-68.0) % Lymph % (Auto) (22.0-35.0) % [place] % (Auto) (1.0-6.0) % Eos % (Auto) (1.5-5.0) % Baso % (Auto) (0.0-3.0) % Gran # (1.4-6.5) Lymph # (Auto) (1.2-3.4) [place] # (Auto) (0.1-0.6) Eos # (Auto) (0.0-0.7) Baso # (Auto) (0.0-2.0) K/mm3 pO2 (30-55) mm/Hg VBG pH (7.32-7.43) VBG pCO2 (40-60) VBG HCO3 (21-28) mmol/l VBG Total CO2 (22-28) mmol.L VBG O2 Sat (Calc) (40-65) % VBG Base Excess (0.0-2.0) mmol/L VBG Potassium (3.6-5.2) mmol/L Sodium 141 (132-148) mmol/L Chloride 107 (98-107) mmol/L Glucose (65-105) mg/dl Lactate (0.7-2.1) mmol/L FiO2 % Potassium 3.9 (3.6-5.0) mmol/L Carbon Dioxide 23 (21-33) mmol/L Anion Gap 14 (10-20) BUN 16 (7-21) mg/dL Creatinine 0.8 (0.7-1.2) mg/dl Est GFR ( Amer) > 60 Est GFR (Non-Af Amer) > 60 POC Glucose (mg/dL) 266 H (65-110) mg/dL Random Glucose 322 H* D (70-110) mg/dL Lactic Acid (0.7-2.1) mmol/L Calcium 9.3 (8.4-10.5) mg/dL Total Bilirubin 1.4 H (0.2-1.3) mg/dL AST 37 H D (14-36) U/L ALT 36 (7-56) U/L Alkaline Phosphatase 98 (38-126) U/L Total Protein 7.6 (5.8-8.3) g/dL Albumin 4.1 (3.0-4.8) g/dL Globulin 3.6 gm/dL Albumin/Globulin Ratio 1.1 (1.1-1.8) Triglycerides 102 (35-160) mg/dL Cholesterol 239 H (130-200) mg/dL LDL Cholesterol Direct 84 (0-129) mg/dL HDL Cholesterol 122 H (29-60) mg/dL Lipase 19 L (23-300) U/L TSH 3rd Generation 1.81 (0.46-4.68) mIU/mL Venous Blood Potassium (3.6-5.2) mmol/L 01/22/18 01/22/18 01/21/18 Range/Units 05:25 00:32 19:50 WBC 7.8 8.8 D (4.5-11.0) 10^3/ul RBC 4.02 4.07 (3.5-6.1) 10^6/uL Hgb 10.7 L 10.7 L (12.0-16.0) g/dL Hct 33.9 L 34.1 L (36.0-48.0) % MCV 84.3 83.8 (80.0-105.0) fl MCH 26.6 26.3 (25.0-35.0) pg MCHC 31.6 31.4 (31.0-37.0) g/dl RDW 16.3 H 16.0 H (11.5-14.5) % Plt Count 300 291 (120.0-450.0) 10^3/uL MPV 9.0 9.0 (7.0-11.0) fl Gran % 84.0 H (50.0-68.0) % Lymph % (Auto) 10.8 L (22.0-35.0) % [place] % (Auto) 5.1 (1.0-6.0) % Eos % (Auto) 0.0 L (1.5-5.0) % Baso % (Auto) 0.1 (0.0-3.0) % Gran # 7.40 H (1.4-6.5) Lymph # (Auto) 1.0 L (1.2-3.4) [place] # (Auto) 0.5 (0.1-0.6) Eos # (Auto) 0.0 (0.0-0.7) Baso # (Auto) 0.01 (0.0-2.0) K/mm3 pO2 (30-55) mm/Hg VBG pH (7.32-7.43) VBG pCO2 (40-60) VBG HCO3 (21-28) mmol/l VBG Total CO2 (22-28) mmol.L VBG O2 Sat (Calc) (40-65) % VBG Base Excess (0.0-2.0) mmol/L VBG Potassium (3.6-5.2) mmol/L Sodium (132-148) mmol/L Chloride (98-107) mmol/L Glucose (65-105) mg/dl Lactate (0.7-2.1) mmol/L FiO2 % Potassium (3.6-5.0) mmol/L Carbon Dioxide (21-33) mmol/L Anion Gap (10-20) BUN (7-21) mg/dL Creatinine (0.7-1.2) mg/dl Est GFR ( Amer) Est GFR (Non-Af Amer) POC Glucose (mg/dL) 263 H (65-110) mg/dL Random Glucose (70-110) mg/dL Lactic Acid (0.7-2.1) mmol/L Calcium (8.4-10.5) mg/dL Total Bilirubin (0.2-1.3) mg/dL AST (14-36) U/L ALT (7-56) U/L Alkaline Phosphatase (38-126) U/L Total Protein (5.8-8.3) g/dL Albumin (3.0-4.8) g/dL Globulin gm/dL Albumin/Globulin Ratio (1.1-1.8) Triglycerides (35-160) mg/dL Cholesterol (130-200) mg/dL LDL Cholesterol Direct (0-129) mg/dL HDL Cholesterol (29-60) mg/dL Lipase (23-300) U/L TSH 3rd Generation (0.46-4.68) mIU/mL Venous Blood Potassium (3.6-5.2) mmol/L 01/21/18 01/21/18 01/21/18 Range/Units 19:50 17:53 15:55 WBC (4.5-11.0) 10^3/ul RBC (3.5-6.1) 10^6/uL Hgb (12.0-16.0) g/dL Hct (36.0-48.0) % MCV (80.0-105.0) fl MCH (25.0-35.0) pg MCHC (31.0-37.0) g/dl RDW (11.5-14.5) % Plt Count (120.0-450.0) 10^3/uL MPV (7.0-11.0) fl Gran % (50.0-68.0) % Lymph % (Auto) (22.0-35.0) % [place] % (Auto) (1.0-6.0) % Eos % (Auto) (1.5-5.0) % Baso % (Auto) (0.0-3.0) % Gran # (1.4-6.5) Lymph # (Auto) (1.2-3.4) [place] # (Auto) (0.1-0.6) Eos # (Auto) (0.0-0.7) Baso # (Auto) (0.0-2.0) K/mm3 pO2 (30-55) mm/Hg VBG pH (7.32-7.43) VBG pCO2 (40-60) VBG HCO3 (21-28) mmol/l VBG Total CO2 (22-28) mmol.L VBG O2 Sat (Calc) (40-65) % VBG Base Excess (0.0-2.0) mmol/L VBG Potassium (3.6-5.2) mmol/L Sodium 143 144 (132-148) mmol/L Chloride 108 H 111 H (98-107) mmol/L Glucose (65-105) mg/dl Lactate (0.7-2.1) mmol/L FiO2 % Potassium 4.2 3.8 (3.6-5.0) mmol/L Carbon Dioxide 21 23 (21-33) mmol/L Anion Gap 18 14 (10-20) BUN 18 20 (7-21) mg/dL Creatinine 0.7 0.8 (0.7-1.2) mg/dl Est GFR ( Amer) > 60 > 60 Est GFR (Non-Af Amer) > 60 > 60 POC Glucose (mg/dL) 144 H (65-110) mg/dL Random Glucose 246 H 128 H (70-110) mg/dL Lactic Acid (0.7-2.1) mmol/L Calcium 9.2 8.7 (8.4-10.5) mg/dL Total Bilirubin 1.3 1.1 (0.2-1.3) mg/dL AST 18 18 (14-36) U/L ALT 37 37 (7-56) U/L Alkaline Phosphatase 102 79 (38-126) U/L Total Protein 7.6 6.6 (5.8-8.3) g/dL Albumin 4.1 3.4 (3.0-4.8) g/dL Globulin 3.5 3.2 gm/dL Albumin/Globulin Ratio 1.2 1.1 (1.1-1.8) Triglycerides (35-160) mg/dL Cholesterol (130-200) mg/dL LDL Cholesterol Direct (0-129) mg/dL HDL Cholesterol (29-60) mg/dL Lipase (23-300) U/L TSH 3rd Generation (0.46-4.68) mIU/mL Venous Blood Potassium (3.6-5.2) mmol/L 01/21/18 01/21/18 01/21/18 Range/Units 15:55 15:55 15:09 WBC (4.5-11.0) 10^3/ul RBC (3.5-6.1) 10^6/uL Hgb (12.0-16.0) g/dL Hct (36.0-48.0) % MCV (80.0-105.0) fl MCH (25.0-35.0) pg MCHC (31.0-37.0) g/dl RDW (11.5-14.5) % Plt Count (120.0-450.0) 10^3/uL MPV (7.0-11.0) fl Gran % (50.0-68.0) % Lymph % (Auto) (22.0-35.0) % [place] % (Auto) (1.0-6.0) % Eos % (Auto) (1.5-5.0) % Baso % (Auto) (0.0-3.0) % Gran # (1.4-6.5) Lymph # (Auto) (1.2-3.4) [place] # (Auto) (0.1-0.6) Eos # (Auto) (0.0-0.7) Baso # (Auto) (0.0-2.0) K/mm3 pO2 69 H (30-55) mm/Hg VBG pH 7.34 (7.32-7.43) VBG pCO2 40.0 (40-60) VBG HCO3 21.6 (21-28) mmol/l VBG Total CO2 22.8 (22-28) mmol.L VBG O2 Sat (Calc) 93.5 H (40-65) % VBG Base Excess -3.9 L (0.0-2.0) mmol/L VBG Potassium 3.8 (3.6-5.2) mmol/L Sodium 142.0 (132-148) mmol/L Chloride 113.0 H (98-107) mmol/L Glucose 128 H (65-105) mg/dl Lactate 1.0 (0.7-2.1) mmol/L FiO2 21.0 % Potassium (3.6-5.0) mmol/L Carbon Dioxide (21-33) mmol/L Anion Gap (10-20) BUN (7-21) mg/dL Creatinine (0.7-1.2) mg/dl Est GFR ( Amer) Est GFR (Non-Af Amer) POC Glucose (mg/dL) 113 H (65-110) mg/dL Random Glucose (70-110) mg/dL Lactic Acid 1.0 (0.7-2.1) mmol/L Calcium (8.4-10.5) mg/dL Total Bilirubin (0.2-1.3) mg/dL AST (14-36) U/L ALT (7-56) U/L Alkaline Phosphatase (38-126) U/L Total Protein (5.8-8.3) g/dL Albumin (3.0-4.8) g/dL Globulin gm/dL Albumin/Globulin Ratio (1.1-1.8) Triglycerides (35-160) mg/dL Cholesterol (130-200) mg/dL LDL Cholesterol Direct (0-129) mg/dL HDL Cholesterol (29-60) mg/dL Lipase (23-300) U/L TSH 3rd Generation (0.46-4.68) mIU/mL Venous Blood Potassium 3.8 (3.6-5.2) mmol/L 01/21/18 Range/Units 12:58 WBC (4.5-11.0) 10^3/ul RBC (3.5-6.1) 10^6/uL Hgb (12.0-16.0) g/dL Hct (36.0-48.0) % MCV (80.0-105.0) fl MCH (25.0-35.0) pg MCHC (31.0-37.0) g/dl RDW (11.5-14.5) % Plt Count (120.0-450.0) 10^3/uL MPV (7.0-11.0) fl Gran % (50.0-68.0) % Lymph % (Auto) (22.0-35.0) % [place] % (Auto) (1.0-6.0) % Eos % (Auto) (1.5-5.0) % Baso % (Auto) (0.0-3.0) % Gran # (1.4-6.5) Lymph # (Auto) (1.2-3.4) [place] # (Auto) (0.1-0.6) Eos # (Auto) (0.0-0.7) Baso # (Auto) (0.0-2.0) K/mm3 pO2 (30-55) mm/Hg VBG pH (7.32-7.43) VBG pCO2 (40-60) VBG HCO3 (21-28) mmol/l VBG Total CO2 (22-28) mmol.L VBG O2 Sat (Calc) (40-65) % VBG Base Excess (0.0-2.0) mmol/L VBG Potassium (3.6-5.2) mmol/L Sodium (132-148) mmol/L Chloride (98-107) mmol/L Glucose (65-105) mg/dl Lactate (0.7-2.1) mmol/L FiO2 % Potassium (3.6-5.0) mmol/L Carbon Dioxide (21-33) mmol/L Anion Gap (10-20) BUN (7-21) mg/dL Creatinine (0.7-1.2) mg/dl Est GFR ( Amer) Est GFR (Non-Af Amer) POC Glucose (mg/dL) 263 H (65-110) mg/dL Random Glucose (70-110) mg/dL Lactic Acid (0.7-2.1) mmol/L Calcium (8.4-10.5) mg/dL Total Bilirubin (0.2-1.3) mg/dL AST (14-36) U/L ALT (7-56) U/L Alkaline Phosphatase (38-126) U/L Total Protein (5.8-8.3) g/dL Albumin (3.0-4.8) g/dL Globulin gm/dL Albumin/Globulin Ratio (1.1-1.8) Triglycerides (35-160) mg/dL Cholesterol (130-200) mg/dL LDL Cholesterol Direct (0-129) mg/dL HDL Cholesterol (29-60) mg/dL Lipase (23-300) U/L TSH 3rd Generation (0.46-4.68) mIU/mL Venous Blood Potassium (3.6-5.2) mmol/L Laboratory Results - last 24 hr 01/21/18 01/21/18 01/21/18 12:58 15:09 15:55 WBC RBC Hgb Hct MCV MCH MCHC RDW Plt Count MPV Gran % Lymph % (Auto) [place] % (Auto) Eos % (Auto) Baso % (Auto) Gran # Lymph # (Auto) [place] # (Auto) Eos # (Auto) Baso # (Auto) pO2 69 H VBG pH 7.34 VBG pCO2 40.0 VBG HCO3 21.6 VBG Total CO2 22.8 VBG O2 Sat (Calc) 93.5 H VBG Base Excess -3.9 L VBG Potassium 3.8 Sodium 142.0 Chloride 113.0 H Glucose 128 H Lactate 1.0 FiO2 21.0 Potassium Carbon Dioxide Anion Gap BUN Creatinine Est GFR ( Amer) Est GFR (Non-Af Amer) POC Glucose (mg/dL) 263 H 113 H Random Glucose Lactic Acid Calcium Total Bilirubin AST ALT Alkaline Phosphatase Total Protein Albumin Globulin Albumin/Globulin Ratio Triglycerides Cholesterol LDL Cholesterol Direct HDL Cholesterol Lipase TSH 3rd Generation Venous Blood Potassium 3.8 01/21/18 01/21/18 01/21/18 15:55 15:55 17:53 WBC RBC Hgb Hct MCV MCH MCHC RDW Plt Count MPV Gran % Lymph % (Auto) [place] % (Auto) Eos % (Auto) Baso % (Auto) Gran # Lymph # (Auto) [place] # (Auto) Eos # (Auto) Baso # (Auto) pO2 VBG pH VBG pCO2 VBG HCO3 VBG Total CO2 VBG O2 Sat (Calc) VBG Base Excess VBG Potassium Sodium 144 Chloride 111 H Glucose Lactate FiO2 Potassium 3.8 Carbon Dioxide 23 Anion Gap 14 BUN 20 Creatinine 0.8 Est GFR ( Amer) > 60 Est GFR (Non-Af Amer) > 60 POC Glucose (mg/dL) 144 H Random Glucose 128 H Lactic Acid 1.0 Calcium 8.7 Total Bilirubin 1.1 AST 18 ALT 37 Alkaline Phosphatase 79 Total Protein 6.6 Albumin 3.4 Globulin 3.2 Albumin/Globulin Ratio 1.1 Triglycerides Cholesterol LDL Cholesterol Direct HDL Cholesterol Lipase TSH 3rd Generation Venous Blood Potassium 01/21/18 01/21/18 01/22/18 19:50 19:50 00:32 WBC 8.8 D RBC 4.07 Hgb 10.7 L Hct 34.1 L MCV 83.8 MCH 26.3 MCHC 31.4 RDW 16.0 H Plt Count 291 MPV 9.0 Gran % 84.0 H Lymph % (Auto) 10.8 L [place] % (Auto) 5.1 Eos % (Auto) 0.0 L Baso % (Auto) 0.1 Gran # 7.40 H Lymph # (Auto) 1.0 L [place] # (Auto) 0.5 Eos # (Auto) 0.0 Baso # (Auto) 0.01 pO2 VBG pH VBG pCO2 VBG HCO3 VBG Total CO2 VBG O2 Sat (Calc) VBG Base Excess VBG Potassium Sodium 143 Chloride 108 H Glucose Lactate FiO2 Potassium 4.2 Carbon Dioxide 21 Anion Gap 18 BUN 18 Creatinine 0.7 Est GFR ( Amer) > 60 Est GFR (Non-Af Amer) > 60 POC Glucose (mg/dL) 263 H Random Glucose 246 H Lactic Acid Calcium 9.2 Total Bilirubin 1.3 AST 18 ALT 37 Alkaline Phosphatase 102 Total Protein 7.6 Albumin 4.1 Globulin 3.5 Albumin/Globulin Ratio 1.2 Triglycerides Cholesterol LDL Cholesterol Direct HDL Cholesterol Lipase TSH 3rd Generation Venous Blood Potassium 01/22/18 01/22/18 01/22/18 05:25 05:25 05:25 WBC 7.8 RBC 4.02 Hgb 10.7 L Hct 33.9 L MCV 84.3 MCH 26.6 MCHC 31.6 RDW 16.3 H Plt Count 300 MPV 9.0 Gran % Lymph % (Auto) [place] % (Auto) Eos % (Auto) Baso % (Auto) Gran # Lymph # (Auto) [place] # (Auto) Eos # (Auto) Baso # (Auto) pO2 VBG pH VBG pCO2 VBG HCO3 VBG Total CO2 VBG O2 Sat (Calc) VBG Base Excess VBG Potassium Sodium 141 Chloride 107 Glucose Lactate FiO2 Potassium 3.9 Carbon Dioxide 23 Anion Gap 14 BUN 16 Creatinine 0.8 Est GFR ( Amer) > 60 Est GFR (Non-Af Amer) > 60 POC Glucose (mg/dL) Random Glucose 322 H* D Lactic Acid Calcium 9.3 Total Bilirubin 1.4 H AST 37 H D ALT 36 Alkaline Phosphatase 98 Total Protein 7.6 Albumin 4.1 Globulin 3.6 Albumin/Globulin Ratio 1.1 Triglycerides 102 Cholesterol 239 H LDL Cholesterol Direct 84 HDL Cholesterol 122 H Lipase 19 L TSH 3rd Generation 1.81 Venous Blood Potassium 01/22/18 05:51 WBC RBC Hgb Hct MCV MCH MCHC RDW Plt Count MPV Gran % Lymph % (Auto) [place] % (Auto) Eos % (Auto) Baso % (Auto) Gran # Lymph # (Auto) [place] # (Auto) Eos # (Auto) Baso # (Auto) pO2 VBG pH VBG pCO2 VBG HCO3 VBG Total CO2 VBG O2 Sat (Calc) VBG Base Excess VBG Potassium Sodium Chloride Glucose Lactate FiO2 Potassium Carbon Dioxide Anion Gap BUN Creatinine Est GFR ( Amer) Est GFR (Non-Af Amer) POC Glucose (mg/dL) 266 H Random Glucose Lactic Acid Calcium Total Bilirubin AST ALT Alkaline Phosphatase Total Protein Albumin Globulin Albumin/Globulin Ratio Triglycerides Cholesterol LDL Cholesterol Direct HDL Cholesterol Lipase TSH 3rd Generation Venous Blood Potassium Fingerstick Blood Sugar Results: 320 Critical Care Progress Note - Nutrition Nutrition: Nutrition Category Date Time Status Liquid Diet [DIET] Diets 01/22/18 Breakfast Ordered Assessment/Plan - Assessment and Plan (Free Text) Assessment: Patient is a 42 y/o with pmh of IDDM admitted with possible DKA. Patient didn't require insulin drip, and gap closed. Plan: Neuro: stable at baseline Pulm: stable, supplemental oxygen prn to maintain O2 sat above 90%. Cardio: Stable, maintain MAP above 65. Lopressor prn for htn. Renal: stable, on maintenance IV hydration Endo: DKA- gap closed, on basal insulin, will add insulin sliding scale, change fluid to 1/2 NS@100. Nephrology following Will attempt to feed, start liquid diet. ID: On Rocephin for possible PID. Cultures pending Afebrile, no leukoctysosis CT with recurrent ruptured ovarian cysts. GI: Abdominal pain likely due to ruptured ovarian cysts. on Dilaudid prn for pain. Zofran prn for n&v, ppi for gi prophylaxis. Advance diet as tolerated. Heme: h/h stable, continue to monitor. DVT prophylaxis: heparin sc. Dispo: patient is hemodynamically stable, and will be transferred out of the ICU. Patient seen, examined and case discussed with the crm coordinator. - Date & Time Date: 01/22/18 Time: 10:15 <Connor Calles - Last Filed: 01/22/18 10:36> CCU Objective - Vital Signs / Intake & Output Vital Signs (Last 4 hours): Vital Signs Pulse Resp BP Pulse Ox 01/22/18 08:40 105 H 100 01/22/18 08:30 106 H 11 L 100 01/22/18 08:20 109 H 15 100 01/22/18 08:10 105 H 11 L 100 01/22/18 08:00 107 H 12 95/49 L 100 03/05/18 07:50 111 H 14 100 01/22/18 07:40 87 88 H 80 L 01/22/18 07:30 86 L 01/22/18 07:20 86 L 01/22/18 07:10 100 01/22/18 07:00 94 H 158/89 H 100 01/22/18 06:50 106 H 13 100 01/22/18 06:40 104 H 11 L 100 Intake and Output (Last 8hrs): Intake & Output 01/21/18 01/22/18 01/22/18 22:59 06:59 14:59 Intake Total 500 1475 Output Total 600 1150 Balance -100 325 Weight 160 lb 12.8 oz Intake: IV 500 1475 Left Antecubital 500 Right Antecubital 1475 Oral 0 Output: Urine 600 950 Urine, Voided 600 950 Emesis 200 Other: # Voids Urine, Voided 1 # Bowel Movements 0 - Medications Active Medications: Active Medications Generic Name Dose Route Start Last Admin Trade Name Freq PRN Reason Stop Dose Admin Heparin Sodium (Porcine) 5,000 units 01/22/18 22:00 Heparin SC Q12 MICHELLE Protocol Hydromorphone HCl 0.5 mg 01/21/18 19:43 01/22/18 10:03 Dilaudid IVP 0.5 mg Q2H PRN Administration Pain, severe (8-10) Ceftriaxone Sodium 1 gm in 100 mls @ 100 mls/hr 01/22/18 10:00 01/22/18 09:25 Rocephin 1 Gram Ivpb IVPB 100 mls/hr DAILY MICHELLE Administration Protocol Sodium Chloride 1,000 mls @ 100 mls/hr 01/22/18 10:15 Sodium Chloride 0.45% IV .Q10H MICHELLE Insulin Detemir 10 unit 01/21/18 22:00 01/21/18 23:13 Levemir SC 10 unit HS MICHELLE Administration Insulin Human Regular 0 units 01/22/18 07:30 01/22/18 08:40 Humulin R Low SC 4 units ACHS MICHELLE Administration Protocol Lorazepam 0.5 mg 01/21/18 14:55 01/21/18 23:23 Ativan IVP 0.5 mg Q6H PRN Administration Anxiety Protocol Metoprolol Tartrate 5 mg 01/21/18 19:04 01/21/18 20:08 Lopressor IVP 5 mg Q6 PRN Administration Systolic Blood Pressure Ondansetron HCl 4 mg 01/21/18 14:54 01/22/18 06:16 Zofran Inj IVP 4 mg Q4H PRN Administration Nausea/Vomiting Pantoprazole Sodium 40 mg 01/22/18 10:00 01/22/18 09:25 Protonix Inj IVP 40 mg DAILY MICHELLE Administration - Patient Studies Lab Studies: Lab Studies 01/22/18 01/22/18 01/22/18 Range/Units 05:51 05:25 05:25 WBC (4.5-11.0) 10^3/ul RBC (3.5-6.1) 10^6/uL Hgb (12.0-16.0) g/dL Hct (36.0-48.0) % MCV (80.0-105.0) fl MCH (25.0-35.0) pg MCHC (31.0-37.0) g/dl RDW (11.5-14.5) % Plt Count (120.0-450.0) 10^3/uL MPV (7.0-11.0) fl Gran % (50.0-68.0) % Lymph % (Auto) (22.0-35.0) % [place] % (Auto) (1.0-6.0) % Eos % (Auto) (1.5-5.0) % Baso % (Auto) (0.0-3.0) % Gran # (1.4-6.5) Lymph # (Auto) (1.2-3.4) [place] # (Auto) (0.1-0.6) Eos # (Auto) (0.0-0.7) Baso # (Auto) (0.0-2.0) K/mm3 pO2 (30-55) mm/Hg VBG pH (7.32-7.43) VBG pCO2 (40-60) VBG HCO3 (21-28) mmol/l VBG Total CO2 (22-28) mmol.L VBG O2 Sat (Calc) (40-65) % VBG Base Excess (0.0-2.0) mmol/L VBG Potassium (3.6-5.2) mmol/L Sodium 141 (132-148) mmol/L Chloride 107 (98-107) mmol/L Glucose (65-105) mg/dl Lactate (0.7-2.1) mmol/L FiO2 % Potassium 3.9 (3.6-5.0) mmol/L Carbon Dioxide 23 (21-33) mmol/L Anion Gap 14 (10-20) BUN 16 (7-21) mg/dL Creatinine 0.8 (0.7-1.2) mg/dl Est GFR ( Amer) > 60 Est GFR (Non-Af Amer) > 60 POC Glucose (mg/dL) 266 H (65-110) mg/dL Random Glucose 322 H* D (70-110) mg/dL Lactic Acid (0.7-2.1) mmol/L Calcium 9.3 (8.4-10.5) mg/dL Total Bilirubin 1.4 H (0.2-1.3) mg/dL AST 37 H D (14-36) U/L ALT 36 (7-56) U/L Alkaline Phosphatase 98 (38-126) U/L Total Protein 7.6 (5.8-8.3) g/dL Albumin 4.1 (3.0-4.8) g/dL Globulin 3.6 gm/dL Albumin/Globulin Ratio 1.1 (1.1-1.8) Triglycerides 102 (35-160) mg/dL Cholesterol 239 H (130-200) mg/dL LDL Cholesterol Direct 84 (0-129) mg/dL HDL Cholesterol 122 H (29-60) mg/dL Lipase 19 L (23-300) U/L TSH 3rd Generation 1.81 (0.46-4.68) mIU/mL Venous Blood Potassium (3.6-5.2) mmol/L 01/22/18 01/22/18 01/21/18 Range/Units 05:25 00:32 19:50 WBC 7.8 8.8 D (4.5-11.0) 10^3/ul RBC 4.02 4.07 (3.5-6.1) 10^6/uL Hgb 10.7 L 10.7 L (12.0-16.0) g/dL Hct 33.9 L 34.1 L (36.0-48.0) % MCV 84.3 83.8 (80.0-105.0) fl MCH 26.6 26.3 (25.0-35.0) pg MCHC 31.6 31.4 (31.0-37.0) g/dl RDW 16.3 H 16.0 H (11.5-14.5) % Plt Count 300 291 (120.0-450.0) 10^3/uL MPV 9.0 9.0 (7.0-11.0) fl Gran % 84.0 H (50.0-68.0) % Lymph % (Auto) 10.8 L (22.0-35.0) % [place] % (Auto) 5.1 (1.0-6.0) % Eos % (Auto) 0.0 L (1.5-5.0) % Baso % (Auto) 0.1 (0.0-3.0) % Gran # 7.40 H (1.4-6.5) Lymph # (Auto) 1.0 L (1.2-3.4) [place] # (Auto) 0.5 (0.1-0.6) Eos # (Auto) 0.0 (0.0-0.7) Baso # (Auto) 0.01 (0.0-2.0) K/mm3 pO2 (30-55) mm/Hg VBG pH (7.32-7.43) VBG pCO2 (40-60) VBG HCO3 (21-28) mmol/l VBG Total CO2 (22-28) mmol.L VBG O2 Sat (Calc) (40-65) % VBG Base Excess (0.0-2.0) mmol/L VBG Potassium (3.6-5.2) mmol/L Sodium (132-148) mmol/L Chloride (98-107) mmol/L Glucose (65-105) mg/dl Lactate (0.7-2.1) mmol/L FiO2 % Potassium (3.6-5.0) mmol/L Carbon Dioxide (21-33) mmol/L Anion Gap (10-20) BUN (7-21) mg/dL Creatinine (0.7-1.2) mg/dl Est GFR ( Amer) Est GFR (Non-Af Amer) POC Glucose (mg/dL) 263 H (65-110) mg/dL Random Glucose (70-110) mg/dL Lactic Acid (0.7-2.1) mmol/L Calcium (8.4-10.5) mg/dL Total Bilirubin (0.2-1.3) mg/dL AST (14-36) U/L ALT (7-56) U/L Alkaline Phosphatase (38-126) U/L Total Protein (5.8-8.3) g/dL Albumin (3.0-4.8) g/dL Globulin gm/dL Albumin/Globulin Ratio (1.1-1.8) Triglycerides (35-160) mg/dL Cholesterol (130-200) mg/dL LDL Cholesterol Direct (0-129) mg/dL HDL Cholesterol (29-60) mg/dL Lipase (23-300) U/L TSH 3rd Generation (0.46-4.68) mIU/mL Venous Blood Potassium (3.6-5.2) mmol/L 01/21/18 01/21/18 01/21/18 Range/Units 19:50 17:53 15:55 WBC (4.5-11.0) 10^3/ul RBC (3.5-6.1) 10^6/uL Hgb (12.0-16.0) g/dL Hct (36.0-48.0) % MCV (80.0-105.0) fl MCH (25.0-35.0) pg MCHC (31.0-37.0) g/dl RDW (11.5-14.5) % Plt Count (120.0-450.0) 10^3/uL MPV (7.0-11.0) fl Gran % (50.0-68.0) % Lymph % (Auto) (22.0-35.0) % [place] % (Auto) (1.0-6.0) % Eos % (Auto) (1.5-5.0) % Baso % (Auto) (0.0-3.0) % Gran # (1.4-6.5) Lymph # (Auto) (1.2-3.4) [place] # (Auto) (0.1-0.6) Eos # (Auto) (0.0-0.7) Baso # (Auto) (0.0-2.0) K/mm3 pO2 (30-55) mm/Hg VBG pH (7.32-7.43) VBG pCO2 (40-60) VBG HCO3 (21-28) mmol/l VBG Total CO2 (22-28) mmol.L VBG O2 Sat (Calc) (40-65) % VBG Base Excess (0.0-2.0) mmol/L VBG Potassium (3.6-5.2) mmol/L Sodium 143 144 (132-148) mmol/L Chloride 108 H 111 H (98-107) mmol/L Glucose (65-105) mg/dl Lactate (0.7-2.1) mmol/L FiO2 % Potassium 4.2 3.8 (3.6-5.0) mmol/L Carbon Dioxide 21 23 (21-33) mmol/L Anion Gap 18 14 (10-20) BUN 18 20 (7-21) mg/dL Creatinine 0.7 0.8 (0.7-1.2) mg/dl Est GFR ( Amer) > 60 > 60 Est GFR (Non-Af Amer) > 60 > 60 POC Glucose (mg/dL) 144 H (65-110) mg/dL Random Glucose 246 H 128 H (70-110) mg/dL Lactic Acid (0.7-2.1) mmol/L Calcium 9.2 8.7 (8.4-10.5) mg/dL Total Bilirubin 1.3 1.1 (0.2-1.3) mg/dL AST 18 18 (14-36) U/L ALT 37 37 (7-56) U/L Alkaline Phosphatase 102 79 (38-126) U/L Total Protein 7.6 6.6 (5.8-8.3) g/dL Albumin 4.1 3.4 (3.0-4.8) g/dL Globulin 3.5 3.2 gm/dL Albumin/Globulin Ratio 1.2 1.1 (1.1-1.8) Triglycerides (35-160) mg/dL Cholesterol (130-200) mg/dL LDL Cholesterol Direct (0-129) mg/dL HDL Cholesterol (29-60) mg/dL Lipase (23-300) U/L TSH 3rd Generation (0.46-4.68) mIU/mL Venous Blood Potassium (3.6-5.2) mmol/L 01/21/18 01/21/18 01/21/18 Range/Units 15:55 15:55 15:09 WBC (4.5-11.0) 10^3/ul RBC (3.5-6.1) 10^6/uL Hgb (12.0-16.0) g/dL Hct (36.0-48.0) % MCV (80.0-105.0) fl MCH (25.0-35.0) pg MCHC (31.0-37.0) g/dl RDW (11.5-14.5) % Plt Count (120.0-450.0) 10^3/uL MPV (7.0-11.0) fl Gran % (50.0-68.0) % Lymph % (Auto) (22.0-35.0) % [place] % (Auto) (1.0-6.0) % Eos % (Auto) (1.5-5.0) % Baso % (Auto) (0.0-3.0) % Gran # (1.4-6.5) Lymph # (Auto) (1.2-3.4) [place] # (Auto) (0.1-0.6) Eos # (Auto) (0.0-0.7) Baso # (Auto) (0.0-2.0) K/mm3 pO2 69 H (30-55) mm/Hg VBG pH 7.34 (7.32-7.43) VBG pCO2 40.0 (40-60) VBG HCO3 21.6 (21-28) mmol/l VBG Total CO2 22.8 (22-28) mmol.L VBG O2 Sat (Calc) 93.5 H (40-65) % VBG Base Excess -3.9 L (0.0-2.0) mmol/L VBG Potassium 3.8 (3.6-5.2) mmol/L Sodium 142.0 (132-148) mmol/L Chloride 113.0 H (98-107) mmol/L Glucose 128 H (65-105) mg/dl Lactate 1.0 (0.7-2.1) mmol/L FiO2 21.0 % Potassium (3.6-5.0) mmol/L Carbon Dioxide (21-33) mmol/L Anion Gap (10-20) BUN (7-21) mg/dL Creatinine (0.7-1.2) mg/dl Est GFR ( Amer) Est GFR (Non-Af Amer) POC Glucose (mg/dL) 113 H (65-110) mg/dL Random Glucose (70-110) mg/dL Lactic Acid 1.0 (0.7-2.1) mmol/L Calcium (8.4-10.5) mg/dL Total Bilirubin (0.2-1.3) mg/dL AST (14-36) U/L ALT (7-56) U/L Alkaline Phosphatase (38-126) U/L Total Protein (5.8-8.3) g/dL Albumin (3.0-4.8) g/dL Globulin gm/dL Albumin/Globulin Ratio (1.1-1.8) Triglycerides (35-160) mg/dL Cholesterol (130-200) mg/dL LDL Cholesterol Direct (0-129) mg/dL HDL Cholesterol (29-60) mg/dL Lipase (23-300) U/L TSH 3rd Generation (0.46-4.68) mIU/mL Venous Blood Potassium 3.8 (3.6-5.2) mmol/L 01/21/18 Range/Units 12:58 WBC (4.5-11.0) 10^3/ul RBC (3.5-6.1) 10^6/uL Hgb (12.0-16.0) g/dL Hct (36.0-48.0) % MCV (80.0-105.0) fl MCH (25.0-35.0) pg MCHC (31.0-37.0) g/dl RDW (11.5-14.5) % Plt Count (120.0-450.0) 10^3/uL MPV (7.0-11.0) fl Gran % (50.0-68.0) % Lymph % (Auto) (22.0-35.0) % [place] % (Auto) (1.0-6.0) % Eos % (Auto) (1.5-5.0) % Baso % (Auto) (0.0-3.0) % Gran # (1.4-6.5) Lymph # (Auto) (1.2-3.4) [place] # (Auto) (0.1-0.6) Eos # (Auto) (0.0-0.7) Baso # (Auto) (0.0-2.0) K/mm3 pO2 (30-55) mm/Hg VBG pH (7.32-7.43) VBG pCO2 (40-60) VBG HCO3 (21-28) mmol/l VBG Total CO2 (22-28) mmol.L VBG O2 Sat (Calc) (40-65) % VBG Base Excess (0.0-2.0) mmol/L VBG Potassium (3.6-5.2) mmol/L Sodium (132-148) mmol/L Chloride (98-107) mmol/L Glucose (65-105) mg/dl Lactate (0.7-2.1) mmol/L FiO2 % Potassium (3.6-5.0) mmol/L Carbon Dioxide (21-33) mmol/L Anion Gap (10-20) BUN (7-21) mg/dL Creatinine (0.7-1.2) mg/dl Est GFR ( Amer) Est GFR (Non-Af Amer) POC Glucose (mg/dL) 263 H (65-110) mg/dL Random Glucose (70-110) mg/dL Lactic Acid (0.7-2.1) mmol/L Calcium (8.4-10.5) mg/dL Total Bilirubin (0.2-1.3) mg/dL AST (14-36) U/L ALT (7-56) U/L Alkaline Phosphatase (38-126) U/L Total Protein (5.8-8.3) g/dL Albumin (3.0-4.8) g/dL Globulin gm/dL Albumin/Globulin Ratio (1.1-1.8) Triglycerides (35-160) mg/dL Cholesterol (130-200) mg/dL LDL Cholesterol Direct (0-129) mg/dL HDL Cholesterol (29-60) mg/dL Lipase (23-300) U/L TSH 3rd Generation (0.46-4.68) mIU/mL Venous Blood Potassium (3.6-5.2) mmol/L Laboratory Results - last 24 hr 01/21/18 01/21/18 01/21/18 12:58 15:09 15:55 WBC RBC Hgb Hct MCV MCH MCHC RDW Plt Count MPV Gran % Lymph % (Auto) [place] % (Auto) Eos % (Auto) Baso % (Auto) Gran # Lymph # (Auto) [place] # (Auto) Eos # (Auto) Baso # (Auto) pO2 69 H VBG pH 7.34 VBG pCO2 40.0 VBG HCO3 21.6 VBG Total CO2 22.8 VBG O2 Sat (Calc) 93.5 H VBG Base Excess -3.9 L VBG Potassium 3.8 Sodium 142.0 Chloride 113.0 H Glucose 128 H Lactate 1.0 FiO2 21.0 Potassium Carbon Dioxide Anion Gap BUN Creatinine Est GFR ( Amer) Est GFR (Non-Af Amer) POC Glucose (mg/dL) 263 H 113 H Random Glucose Lactic Acid Calcium Total Bilirubin AST ALT Alkaline Phosphatase Total Protein Albumin Globulin Albumin/Globulin Ratio Triglycerides Cholesterol LDL Cholesterol Direct HDL Cholesterol Lipase TSH 3rd Generation Venous Blood Potassium 3.8 01/21/18 01/21/18 01/21/18 15:55 15:55 17:53 WBC RBC Hgb Hct MCV MCH MCHC RDW Plt Count MPV Gran % Lymph % (Auto) [place] % (Auto) Eos % (Auto) Baso % (Auto) Gran # Lymph # (Auto) [place] # (Auto) Eos # (Auto) Baso # (Auto) pO2 VBG pH VBG pCO2 VBG HCO3 VBG Total CO2 VBG O2 Sat (Calc) VBG Base Excess VBG Potassium Sodium 144 Chloride 111 H Glucose Lactate FiO2 Potassium 3.8 Carbon Dioxide 23 Anion Gap 14 BUN 20 Creatinine 0.8 Est GFR ( Amer) > 60 Est GFR (Non-Af Amer) > 60 POC Glucose (mg/dL) 144 H Random Glucose 128 H Lactic Acid 1.0 Calcium 8.7 Total Bilirubin 1.1 AST 18 ALT 37 Alkaline Phosphatase 79 Total Protein 6.6 Albumin 3.4 Globulin 3.2 Albumin/Globulin Ratio 1.1 Triglycerides Cholesterol LDL Cholesterol Direct HDL Cholesterol Lipase TSH 3rd Generation Venous Blood Potassium 01/21/18 01/21/18 01/22/18 19:50 19:50 00:32 WBC 8.8 D RBC 4.07 Hgb 10.7 L Hct 34.1 L MCV 83.8 MCH 26.3 MCHC 31.4 RDW 16.0 H Plt Count 291 MPV 9.0 Gran % 84.0 H Lymph % (Auto) 10.8 L [place] % (Auto) 5.1 Eos % (Auto) 0.0 L Baso % (Auto) 0.1 Gran # 7.40 H Lymph # (Auto) 1.0 L [place] # (Auto) 0.5 Eos # (Auto) 0.0 Baso # (Auto) 0.01 pO2 VBG pH VBG pCO2 VBG HCO3 VBG Total CO2 VBG O2 Sat (Calc) VBG Base Excess VBG Potassium Sodium 143 Chloride 108 H Glucose Lactate FiO2 Potassium 4.2 Carbon Dioxide 21 Anion Gap 18 BUN 18 Creatinine 0.7 Est GFR ( Amer) > 60 Est GFR (Non-Af Amer) > 60 POC Glucose (mg/dL) 263 H Random Glucose 246 H Lactic Acid Calcium 9.2 Total Bilirubin 1.3 AST 18 ALT 37 Alkaline Phosphatase 102 Total Protein 7.6 Albumin 4.1 Globulin 3.5 Albumin/Globulin Ratio 1.2 Triglycerides Cholesterol LDL Cholesterol Direct HDL Cholesterol Lipase TSH 3rd Generation Venous Blood Potassium 01/22/18 01/22/18 01/22/18 05:25 05:25 05:25 WBC 7.8 RBC 4.02 Hgb 10.7 L Hct 33.9 L MCV 84.3 MCH 26.6 MCHC 31.6 RDW 16.3 H Plt Count 300 MPV 9.0 Gran % Lymph % (Auto) [place] % (Auto) Eos % (Auto) Baso % (Auto) Gran # Lymph # (Auto) [place] # (Auto) Eos # (Auto) Baso # (Auto) pO2 VBG pH VBG pCO2 VBG HCO3 VBG Total CO2 VBG O2 Sat (Calc) VBG Base Excess VBG Potassium Sodium 141 Chloride 107 Glucose Lactate FiO2 Potassium 3.9 Carbon Dioxide 23 Anion Gap 14 BUN 16 Creatinine 0.8 Est GFR ( Amer) > 60 Est GFR (Non-Af Amer) > 60 POC Glucose (mg/dL) Random Glucose 322 H* D Lactic Acid Calcium 9.3 Total Bilirubin 1.4 H AST 37 H D ALT 36 Alkaline Phosphatase 98 Total Protein 7.6 Albumin 4.1 Globulin 3.6 Albumin/Globulin Ratio 1.1 Triglycerides 102 Cholesterol 239 H LDL Cholesterol Direct 84 HDL Cholesterol 122 H Lipase 19 L TSH 3rd Generation 1.81 Venous Blood Potassium 01/22/18 05:51 WBC RBC Hgb Hct MCV MCH MCHC RDW Plt Count MPV Gran % Lymph % (Auto) [place] % (Auto) Eos % (Auto) Baso % (Auto) Gran # Lymph # (Auto) [place] # (Auto) Eos # (Auto) Baso # (Auto) pO2 VBG pH VBG pCO2 VBG HCO3 VBG Total CO2 VBG O2 Sat (Calc) VBG Base Excess VBG Potassium Sodium Chloride Glucose Lactate FiO2 Potassium Carbon Dioxide Anion Gap BUN Creatinine Est GFR ( Amer) Est GFR (Non-Af Amer) POC Glucose (mg/dL) 266 H Random Glucose Lactic Acid Calcium Total Bilirubin AST ALT Alkaline Phosphatase Total Protein Albumin Globulin Albumin/Globulin Ratio Triglycerides Cholesterol LDL Cholesterol Direct HDL Cholesterol Lipase TSH 3rd Generation Venous Blood Potassium Critical Care Progress Note - Nutrition Nutrition: Nutrition Category Date Time Status Liquid Diet [DIET] Diets 01/22/18 Breakfast Ordered Assessment/Plan - Assessment and Plan (Free Text) Plan: Patient seen and examined on rounds with resident, agree with note with following additions/exceptions: Patient is 42yo female with PMhx IDDM, Gastroparesis, presented with elevated FS. Did not require insulin drip. Currently afebrile, HD stable, comfortable, in NAD. AG closed. IDDM Gastroparesis Ruptured ovarian cyst Recommend: - supp o2 as needed - rocephin IV - Clerical Office Worker eval - IVF hydration - FS control - Reglan IV PRN - GI ppx - DVT ppx - Stable, transfer to floor
[2018-01-22] MEDS: Sodium Chloride 0.45% 1,000 ML IV SCH (11:09)
--- NOTE | 2018-01-22 12:38 | CP.PCM.CON ---
<Marietta Hernandez - Last Filed: 01/22/18 12:34> History of Present Illness - History of Present Illness History of Present Illness: GI Consult Note _ Dr. Gomez 42 y/o F with PMH of DM type 1, gastroparesis, HTN, Duodenal ulcers, and GERD presents to [facility] ED with nausea, vomiting, and palpitations. Pt states that her nausea and vomiting is likely due to her history of gastroparesis. Pt states that initially vomiting was clear, but progressed to dark red color in nature. ON account of her symptoms of nausea and vomiting, she has been unable to tolerate her po medications, which in turn led to severe hyperglycemia, for which she was managed in the ICU. Pt was seen and examined at bedside. Tardive dyskinesia noted. Pt denied fever,chills, SOB, diarrhea, fevers, chills, dysphagia, melena, hematochezia, hematemesis, recent sick contacts. PMH: DM type 1, gastroparesis, HTN, Duodenal ulcers, and GERD FMH: HTN, DM Social Hx: Denies alcohol, tobacco, or illicit drug use Endo Hx: Endoscopy recently found to be negative for any pathology in April. Medication: Reviewed, as per chart Allergies: Metoclopramide PMD: Dr Theodore Review of Systems - Review of Systems Review of Systems: as per HPI otherwise negative Past Patient History - Infectious Disease Hx of Infectious Diseases: None - Tetanus Immunizations Tetanus Immunization: Unknown - Past Social History Smoking Status: Never Smoked - CARDIAC Hx Cardiac Disorders: Yes Hx Hypertension: Yes - PULMONARY Hx Respiratory Disorders: No - NEUROLOGICAL Hx Neurological Disorder: Yes (NEUROPATHY) - HEENT Hx HEENT Problems: Yes Other/Comment: wears glasses-nearsighted - RENAL Hx Chronic Kidney Disease: No - ENDOCRINE/METABOLIC Hx Diabetes Mellitus Type 1: Yes (hx DKA) - HEMATOLOGICAL/ONCOLOGICAL Hx Anemia: Yes - INTEGUMENTARY Hx Dermatological Problems: Yes (hx diabetic foot ulcers) - MUSCULOSKELETAL/RHEUMATOLOGICAL Hx Falls: No Hx Osteomyelitis: Yes (left foot 2014) - GASTROINTESTINAL Hx Gastrointestinal Disorders: Yes (gastritis,gastroparesis) Hx Gastroesophageal Reflux: Yes - GENITOURINARY/GYNECOLOGICAL Hx Urinary Tract Infection: Yes - PSYCHIATRIC Hx Psychophysiologic Disorder: Yes Hx Anxiety: Yes Hx Substance Use: No - SURGICAL HISTORY Hx Cardiac Catheterization: No - ANESTHESIA Hx Anesthesia: No Hx Anesthesia Reactions: No Hx Malignant Hyperthermia: No Meds Home Medications: Home Medication List Medication Instructions Recorded Confirmed Type Insulin Detemir [Levemir] 20 unit SC HS #1 vial 01/26/18 Rx Insulin Lispro [humALOG] 6 units SC AC #1 vial 01/26/18 Rx Mupirocin 2% Ointment [Bactroban 0 gm TOP BID #1 tube 01/26/18 Rx Ointment] Pantoprazole [Protonix Inj] 40 mg PO DAILY #30 cap 01/26/18 Rx Polyethylene Glycol 3350 [Miralax] 17 gm PO DAILY PRN #1 packet 01/26/18 Rx Potassium Chloride [K-Dur 20] 20 meq PO DAILY #30 tab 01/26/18 Rx levoFLOXacin [Levaquin] 500 mg PO DAILY #8 tab 01/26/18 Rx Allergies/Adverse Reactions: Allergies Allergy/AdvReac Type Severity Reaction Status Date / Time metoclopramide HCl AdvReac VOMITING Verified 01/21/18 10:11 [From Reglan] - Medications Medications: Current Medications Heparin Sodium (Porcine) (Heparin) 5,000 units SC Q12 [facility] PRN Reason: Protocol Hydromorphone HCl (Dilaudid) 0.5 mg IVP Q2H PRN PRN Reason: Pain, severe (8-10) Last Admin: 01/22/18 12:12 Dose: 0.5 mg Ceftriaxone Sodium (Rocephin 1 Gram Ivpb) 1 gm in 100 mls @ 100 mls/hr IVPB DAILY [facility] PRN Reason: Protocol Last Admin: 01/22/18 09:25 Dose: 100 mls/hr Sodium Chloride (Sodium Chloride 0.45%) 1,000 mls @ 100 mls/hr IV .Q10H [facility] Last Admin: 01/22/18 11:09 Dose: 100 mls/hr Insulin Detemir (Levemir) 10 unit SC HS [facility] Last Admin: 01/21/18 23:13 Dose: 10 unit Insulin Human Regular (Humulin R Low) 0 units SC ACHS [facility] PRN Reason: Protocol Last Admin: 01/22/18 12:27 Dose: 1 units Lorazepam (Ativan) 0.5 mg IVP Q6H PRN; Protocol PRN Reason: Anxiety Last Admin: 01/21/18 23:23 Dose: 0.5 mg Metoprolol Tartrate (Lopressor) 5 mg IVP Q6 PRN PRN Reason: Systolic Blood Pressure Last Admin: 01/21/18 20:08 Dose: 5 mg Ondansetron HCl (Zofran Inj) 4 mg IVP Q4H PRN PRN Reason: Nausea/Vomiting Last Admin: 01/22/18 12:12 Dose: 4 mg Pantoprazole Sodium (Protonix Inj) 40 mg IVP DAILY [facility] Last Admin: 01/22/18 09:25 Dose: 40 mg Physical Exam - Constitutional Appears: No Acute Distress - Head Exam Head Exam: ATRAUMATIC, NORMAL INSPECTION, NORMOCEPHALIC - Eye Exam Eye Exam: EOMI, Normal appearance, PERRL Pupil Exam: NORMAL ACCOMODATION, PERRL - ENT Exam ENT Exam: Mucous Membranes Moist, Normal Exam - Respiratory Exam Respiratory Exam: Clear to Auscultation Bilateral, NORMAL BREATHING PATTERN - Cardiovascular Exam Cardiovascular Exam: Tachycardia, +S1, +S2 - GI/Abdominal Exam GI & Abdominal Exam: Normal Bowel Sounds, Soft, Tenderness Additional comments: Diffuse - Extremities Exam Extremities exam: Positive for: normal inspection - Neurological Exam Neurological exam: Alert, CN II-XII Intact, Oriented x3, Reflexes Normal - Psychiatric Exam Psychiatric exam: Normal Affect, Normal Mood - Skin Skin Exam: Dry, Intact, Normal Color, Warm Results - Vital Signs Recent Vital Signs: Last Vital Signs Temp 98.2 F 01/22/18 12:00 Pulse 110 H 01/22/18 10:30 Resp 14 01/22/18 10:30 BP 151/90 H 01/22/18 10:01 Pulse Ox 100 01/22/18 10:30 - Labs Result Diagrams: 01/22/18 05:25 01/22/18 05:25 Labs: Laboratory Results - last 24 hr 01/21/18 01/21/18 01/21/18 12:58 15:09 15:55 WBC RBC Hgb Hct MCV MCH MCHC RDW Plt Count MPV Gran % Lymph % (Auto) [place] % (Auto) Eos % (Auto) Baso % (Auto) Gran # Lymph # (Auto) [place] # (Auto) Eos # (Auto) Baso # (Auto) pO2 69 H VBG pH 7.34 VBG pCO2 40.0 VBG HCO3 21.6 VBG Total CO2 22.8 VBG O2 Sat (Calc) 93.5 H VBG Base Excess -3.9 L VBG Potassium 3.8 Sodium 142.0 Chloride 113.0 H Glucose 128 H Lactate 1.0 FiO2 21.0 Potassium Carbon Dioxide Anion Gap BUN Creatinine Est GFR ( Amer) Est GFR (Non-Af Amer) POC Glucose (mg/dL) 263 H 113 H Random Glucose Hemoglobin A1c Lactic Acid Calcium Total Bilirubin AST ALT Alkaline Phosphatase Total Protein Albumin Globulin Albumin/Globulin Ratio Triglycerides Cholesterol LDL Cholesterol Direct HDL Cholesterol Lipase TSH 3rd Generation Venous Blood Potassium 3.8 01/21/18 01/21/18 01/21/18 15:55 15:55 17:53 WBC RBC Hgb Hct MCV MCH MCHC RDW Plt Count MPV Gran % Lymph % (Auto) [place] % (Auto) Eos % (Auto) Baso % (Auto) Gran # Lymph # (Auto) [place] # (Auto) Eos # (Auto) Baso # (Auto) pO2 VBG pH VBG pCO2 VBG HCO3 VBG Total CO2 VBG O2 Sat (Calc) VBG Base Excess VBG Potassium Sodium 144 Chloride 111 H Glucose Lactate FiO2 Potassium 3.8 Carbon Dioxide 23 Anion Gap 14 BUN 20 Creatinine 0.8 Est GFR ( Amer) > 60 Est GFR (Non-Af Amer) > 60 POC Glucose (mg/dL) 144 H Random Glucose 128 H Hemoglobin A1c Lactic Acid 1.0 Calcium 8.7 Total Bilirubin 1.1 AST 18 ALT 37 Alkaline Phosphatase 79 Total Protein 6.6 Albumin 3.4 Globulin 3.2 Albumin/Globulin Ratio 1.1 Triglycerides Cholesterol LDL Cholesterol Direct HDL Cholesterol Lipase TSH 3rd Generation Venous Blood Potassium 01/21/18 01/21/18 01/22/18 19:50 19:50 00:32 WBC 8.8 D RBC 4.07 Hgb 10.7 L Hct 34.1 L MCV 83.8 MCH 26.3 MCHC 31.4 RDW 16.0 H Plt Count 291 MPV 9.0 Gran % 84.0 H Lymph % (Auto) 10.8 L [place] % (Auto) 5.1 Eos % (Auto) 0.0 L Baso % (Auto) 0.1 Gran # 7.40 H Lymph # (Auto) 1.0 L [place] # (Auto) 0.5 Eos # (Auto) 0.0 Baso # (Auto) 0.01 pO2 VBG pH VBG pCO2 VBG HCO3 VBG Total CO2 VBG O2 Sat (Calc) VBG Base Excess VBG Potassium Sodium 143 Chloride 108 H Glucose Lactate FiO2 Potassium 4.2 Carbon Dioxide 21 Anion Gap 18 BUN 18 Creatinine 0.7 Est GFR ( Amer) > 60 Est GFR (Non-Af Amer) > 60 POC Glucose (mg/dL) 263 H Random Glucose 246 H Hemoglobin A1c Lactic Acid Calcium 9.2 Total Bilirubin 1.3 AST 18 ALT 37 Alkaline Phosphatase 102 Total Protein 7.6 Albumin 4.1 Globulin 3.5 Albumin/Globulin Ratio 1.2 Triglycerides Cholesterol LDL Cholesterol Direct HDL Cholesterol Lipase TSH 3rd Generation Venous Blood Potassium 01/22/18 01/22/18 01/22/18 05:25 05:25 05:25 WBC 7.8 RBC 4.02 Hgb 10.7 L Hct 33.9 L MCV 84.3 MCH 26.6 MCHC 31.6 RDW 16.3 H Plt Count 300 MPV 9.0 Gran % Lymph % (Auto) [place] % (Auto) Eos % (Auto) Baso % (Auto) Gran # Lymph # (Auto) [place] # (Auto) Eos # (Auto) Baso # (Auto) pO2 VBG pH VBG pCO2 VBG HCO3 VBG Total CO2 VBG O2 Sat (Calc) VBG Base Excess VBG Potassium Sodium 141 Chloride 107 Glucose Lactate FiO2 Potassium 3.9 Carbon Dioxide 23 Anion Gap 14 BUN 16 Creatinine 0.8 Est GFR ( Amer) > 60 Est GFR (Non-Af Amer) > 60 POC Glucose (mg/dL) Random Glucose 322 H* D Hemoglobin A1c 10.3 H Lactic Acid Calcium 9.3 Total Bilirubin 1.4 H AST 37 H D ALT 36 Alkaline Phosphatase 98 Total Protein 7.6 Albumin 4.1 Globulin 3.6 Albumin/Globulin Ratio 1.1 Triglycerides 102 Cholesterol 239 H LDL Cholesterol Direct 84 HDL Cholesterol 122 H Lipase 19 L TSH 3rd Generation Venous Blood Potassium 01/22/18 01/22/18 05:25 05:51 WBC RBC Hgb Hct MCV MCH MCHC RDW Plt Count MPV Gran % Lymph % (Auto) [place] % (Auto) Eos % (Auto) Baso % (Auto) Gran # Lymph # (Auto) [place] # (Auto) Eos # (Auto) Baso # (Auto) pO2 VBG pH VBG pCO2 VBG HCO3 VBG Total CO2 VBG O2 Sat (Calc) VBG Base Excess VBG Potassium Sodium Chloride Glucose Lactate FiO2 Potassium Carbon Dioxide Anion Gap BUN Creatinine Est GFR ( Amer) Est GFR (Non-Af Amer) POC Glucose (mg/dL) 266 H Random Glucose Hemoglobin A1c Lactic Acid Calcium Total Bilirubin AST ALT Alkaline Phosphatase Total Protein Albumin Globulin Albumin/Globulin Ratio Triglycerides Cholesterol LDL Cholesterol Direct HDL Cholesterol Lipase TSH 3rd Generation 1.81 Venous Blood Potassium Assessment & Plan - Assessment and Plan (Free Text) Assessment: 42 y/o F with PMH of DM type 1, gastroparesis, HTN, Duodenal ulcers, and GERD presents to [facility] ED with nausea, vomiting, and palpitations admitted to ICU for possible DKA. Pt AGAP closed on basal insulin, insulin sliding scale, IVF 1/2 NS @100. Rocephin for possible PID. Cultures pending. Pt is Afebrile, without leukoctysosis. CT Abdomen demonstrated recurrent ruptured ovarian cysts. Abdominal pain likely due to ruptured ovarian cysts vs gastroparesis on Dilaudid prn for pain. Zofran prn for nausea/vomiting. Continue PPI for GI ppx. ADAT. 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 Discussed with Dr. Gomez <Bev Gomez V - Last Filed: 01/28/18 21:12> Meds - Medications Medications: Current Medications Heparin Sodium (Porcine) (Heparin) 5,000 units SC Q12 [facility] PRN Reason: Protocol Last Admin: 01/22/18 21:06 Dose: 5,000 units Hydromorphone HCl (Dilaudid) 0.5 mg IVP Q2H PRN PRN Reason: Pain, severe (8-10) Last Admin: 01/22/18 21:05 Dose: 0.5 mg Ceftriaxone Sodium (Rocephin 1 Gram Ivpb) 1 gm in 100 mls @ 100 mls/hr IVPB DAILY [facility] PRN Reason: Protocol Last Admin: 01/22/18 09:25 Dose: 100 mls/hr Sodium Chloride (Sodium Chloride 0.45%) 1,000 mls @ 100 mls/hr IV .Q10H [facility] Last Admin: 01/22/18 11:09 Dose: 100 mls/hr Insulin Detemir (Levemir) 20 unit SC HS [facility] Last Admin: 01/22/18 21:06 Dose: 20 unit Insulin Human Lispro (Humalog) 4 units SC AC [facility] Last Admin: 01/22/18 17:25 Dose: 4 units Insulin Human Lispro (Humalog Low) 0 units SC ACHS [facility] PRN Reason: Protocol Last Admin: 01/22/18 22:07 Dose: Not Given Lorazepam (Ativan) 0.5 mg IVP Q6H PRN; Protocol PRN Reason: Anxiety Last Admin: 01/21/18 23:23 Dose: 0.5 mg Metoprolol Tartrate (Lopressor) 5 mg IVP Q6 PRN PRN Reason: Systolic Blood Pressure Last Admin: 01/21/18 20:08 Dose: 5 mg Ondansetron HCl (Zofran Inj) 4 mg IVP Q4H PRN PRN Reason: Nausea/Vomiting Last Admin: 01/22/18 21:05 Dose: 4 mg Pantoprazole Sodium (Protonix Inj) 40 mg IVP DAILY [facility] Last Admin: 01/22/18 09:25 Dose: 40 mg Results - Vital Signs Recent Vital Signs: Last Vital Signs Temp 98.7 F 01/22/18 22:35 Pulse 117 H 01/22/18 22:35 Resp 16 01/22/18 22:35 BP 110/66 01/22/18 22:35 Pulse Ox 97 01/22/18 22:35 - Labs Result Diagrams: 01/26/18 06:57 01/26/18 06:57 Labs: Laboratory Results - last 24 hr 01/22/18 01/22/18 01/22/18 00:32 05:25 05:25 WBC 7.8 RBC 4.02 Hgb 10.7 L Hct 33.9 L MCV 84.3 MCH 26.6 MCHC 31.6 RDW 16.3 H Plt Count 300 MPV 9.0 Sodium 141 Potassium 3.9 Chloride 107 Carbon Dioxide 23 Anion Gap 14 BUN 16 Creatinine 0.8 Est GFR ( Amer) > 60 Est GFR (Non-Af Amer) > 60 POC Glucose (mg/dL) 263 H Random Glucose 322 H* D Hemoglobin A1c Calcium 9.3 Total Bilirubin 1.4 H AST 37 H D ALT 36 Alkaline Phosphatase 98 Total Protein 7.6 Albumin 4.1 Globulin 3.6 Albumin/Globulin Ratio 1.1 Triglycerides 102 Cholesterol 239 H LDL Cholesterol Direct 84 HDL Cholesterol 122 H Lipase 19 L TSH 3rd Generation Cortisol AM Sample 01/22/18 01/22/18 01/22/18 05:25 05:25 05:25 WBC RBC Hgb Hct MCV MCH MCHC RDW Plt Count MPV Sodium Potassium Chloride Carbon Dioxide Anion Gap BUN Creatinine Est GFR ( Amer) Est GFR (Non-Af Amer) POC Glucose (mg/dL) Random Glucose Hemoglobin A1c 10.3 H Calcium Total Bilirubin AST ALT Alkaline Phosphatase Total Protein Albumin Globulin Albumin/Globulin Ratio Triglycerides Cholesterol LDL Cholesterol Direct HDL Cholesterol Lipase TSH 3rd Generation 1.81 Cortisol AM Sample 31.1 H 01/22/18 01/22/18 01/22/18 05:51 16:38 22:02 WBC RBC Hgb Hct MCV MCH MCHC RDW Plt Count MPV Sodium Potassium Chloride Carbon Dioxide Anion Gap BUN Creatinine Est GFR ( Amer) Est GFR (Non-Af Amer) POC Glucose (mg/dL) 266 H 165 H 195 H Random Glucose Hemoglobin A1c Calcium Total Bilirubin AST ALT Alkaline Phosphatase Total Protein Albumin Globulin Albumin/Globulin Ratio Triglycerides Cholesterol LDL Cholesterol Direct HDL Cholesterol Lipase TSH 3rd Generation Cortisol AM Sample Attending/Attestation - Attestation I have personally seen and examined this patient.: Yes I have fully participated in the care of the patient.: Yes I have reviewed all pertinent clinical information: Yes Notes (Text): This is an addendum to GI consult report dictated by the Kitchen Cleaner.The patient was seen and examined earlier. Medical records, lab studies, imagings were reviewed. Last 24 hours events reviewed. Agreed with the above treatment plan as outlined in Kitchen [employer]er 's notes the with the addition of the following This 42-year-old patient well-known to our service with a history of severe gastroparesis, grade C esophagitis, anemia,. Patient is being followed at [facility], [place] for gastroparesis. She is due to get antral Botox injection Physical examination she has mild tenderness in the epigastric area no rebound or guarding CT was reviewed Continue high-dose PPI Follow-up with hemoglobin and hematocrit patient is due to have a EGD and a Botox inj at the [facility]. He should also benefit from elective colonoscopy thank you very much for allowing us to participate in the care of the patient 01/22/18 23:02 01/28/18 21:12
--- NOTE | 2018-01-22 12:56 | PN ---
DATE: SUBJECTIVE: I saw her this morning. She is definitely medicated. She is on Ativan, Dilaudid, insulin, Levemir, Lopressor, Protonix, Rocephin, Zosyn and IV fluids. She is here for DKA, UTI, and high blood sugars with abdominal pains. She said she is a little bit thirsty, not talking much. OBJECTIVE VITAL SIGNS: She has a 98 temperature, 106 pulse, 145/76 blood pressure, 13 respiratory rate, 92% saturation on room air. HEENT: Head is atraumatic, normocephalic. Throat is dry. NECK: Supple. HEART: Regular rate. LUNGS: Decreased breath sounds, but clear. ABDOMEN: Soft. No guarding or rebound. Decreased bowel sounds. EXTREMITIES: Have no edema. LABORATORY DATA: She has a 7.8 white count, it is getting better; 10.7 hemoglobin; 33.9 hematocrit with 300,000 platelets. Blood sugar was 128. She has 141 sodium, potassium 3.9, BUN 16, creatinine 0.8. GFR is greater than 60. Her last blood sugar was 266. Calcium 9.3, total bili is 1.4, AST is 37, ALT is 36, alkaline phosphatase 98, total protein 7.6, albumin is 4.1. TSH is 1.81. Urine, there is moderate bacteria; so, UTI. Negative for the flu. 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 There are consults with Endocrinology, Surgery and GI. We will continue with aggressive treatment and care. She is on a full liquid diet. We will see if we can get her out of bed to chair. We will check her labs tomorrow and hopefully, she will continue to improve. David Theodore DO MTDR[facility] Ann
--- NOTE | 2018-01-22 15:58 | CP.PCM.PCO ---
Physician Communication Note - Physician Communication Note Physician Communication Note: Dr. Mann consulted for central line placement Addendum Addendum: Patient is a 42F with suspected DKA in need of aggressive fluid hydration and possible insulin drip who had historically difficult peripheral access. General surgery team was consulted to place a central line. By the time patient was evaluated she had two peripheral accesses present and functioning well. No central line was needed at this time. Recommend PICC line if needed for patient on 01/22 to establish access as it less likely to have complications if needed for prolonged period of time. Please notify surgical team if patient loses access and has urgent need of a central line.
[2018-01-22] MEDS: Insulin Lispro (humaLOG) LOW Coverage SC SCH ×2 (17:18→22:07)
[2018-01-22] MEDS: Insulin Lispro 1 UNITS/0.01 ML SC SCH (17:25)
[2018-01-22] MEDS: Insulin Detemir 100 units/ml Vial (Levemir) SC SCH (21:06)
--- NOTE | 2018-01-22 21:43 | PN ---
DATE: ENDOCRINOLOGY FOLLOWUP NOTE LOCATION: Room 568. SUBJECTIVE: This is a 42-year-old female with recent uncontrolled type 1 insulin-dependent diabetes, presenting here with diabetic ketoacidosis and dehydration and has since then improved clinically and metabolically as noted thereof. She has been advanced now to a liquid diet as tolerated. Her glycemic levels are fluctuating, but improved and the latest glucose values have ranged from 263 to 266 mg/dL. Her A1c is 10.3%, which is markedly elevated and indicative of suboptimal metabolic control of her diabetic condition even prior to this admission. Her latest chemistry showed a BUN of 16, sodium 141, potassium 3.9, chloride 107, CO2 of 23, glucose 322, creatinine 0.8. PLAN: So at this time, we will modify once again her basal insulin and increase the Levemir to 20 units subcu at bedtime daily to start tonight. We will add Humalog given as 4 units subcu t.i.d. before meals to start at dinner time today as ordered. We will modify the coverage scale to obviate hypoglycemia and detailed orders have been given for a very low-dose algorithm using Humalog insulin as ordered. We will continue the IV hydration and obtain serial chemistries thereof. We will follow with you. Tamara Campo MD
[2018-01-23] MEDS: HYDROmorphone 0.5 mg/0.5 ml ISec IVP PRN ×4 (06:29→20:09)
[2018-01-23 07:22] LABS: HEMOGLOBIN 9.9 g/dL (12.0-16.0); MEAN CELL VOLUME 84.2 fl (80.0-105.0); MEAN CORPUSCULAR HEMOGLOBIN 26.1 pg (25.0-35.0); MEAN PLATELET VOLUME 9.2 fl (7.0-11.0); RBC 3.79 10^6/uL (3.5-6.1); RED CELL DISTRIBUTION WIDTH 16.3 % (11.5-14.5); WHITE BLOOD COUNT 9.3 10^3/ul (4.5-11.0)
[2018-01-23 07:42] LABS: ALB/GLOB RATIO 1.1 (1.1-1.8); ALBUMIN 3.6 g/dL (3.0-4.8); ALT/SGPT 36 U/L (7-56); AST/SGOT 30 U/L (14-36); BLOOD UREA NITROGEN 17 mg/dL (7-21); CALCIUM 9.7 mg/dL (8.4-10.5); GFR AFRICAN-AMERICAN > 60; GFR NON-AFRICAN AMERICAN > 60
[2018-01-23] MEDS: Insulin Lispro 1 UNITS/0.01 ML SC SCH ×3 (08:26→17:02)
[2018-01-23] MEDS: Insulin Lispro (humaLOG) LOW Coverage SC SCH ×4 (08:26→22:39)
[2018-01-23] MEDS: cefTRIAXone 1 gm 1 GM/100 ML BAG IVPB SCH (09:24)
--- NOTE | 2018-01-23 12:24 | PN ---
DATE: ENDOCRINOLOGY FOLLOWUP NOTE LOCATION: Room 568. SUBJECTIVE: This is a 42-year-old female with recent uncontrolled type 1 insulin-dependent diabetes, presenting here with diabetic gastroparesis and intractable vomiting episodes and has since then been advanced to a liquid diet, which she is tolerating fairly well at this time. Her glycemic levels are fluctuating, but much improved and the glucose values overnight have ranged from 168-195 mg/dL. Her latest chemistry showed a BUN of 17, sodium 142, potassium 3.8, chloride 108, CO2 of 27, glucose 192, creatinine 0.9. Her A1c is extremely elevated at 10.3% indicative of very poor suboptimal metabolic control of her diabetic condition even prior to this admission. She is only on a sliding scale coverage and basal insulin at night as noted. So at this time, we will continue the modified basal and bolus insulin regimen to allow for dose equilibration and also to await advancement of her diet regimen to more solid food as noted. We will continue her Humalog at 4 units subcu t.i.d. before meals as ordered. We will continue her Levemir given as 20 units subcu at bedtime daily as given. We will titrate incrementally as indicated to optimize metabolic control. We will also continue the low-dose correction scale using Humalog insulin as given. We will obtain serial chemistries and continue her IV hydration as ordered. We will follow. Tamara Campo MD
--- NOTE | 2018-01-23 13:59 | PN ---
DATE: SUBJECTIVE: She is very uncomfortable, still in bed. She is very lethargic, abdominal pain, not hungry, better though than when she came in, but not PHYSICAL EXAMINATION VITAL SIGNS: She has a 98.7 temperature, 90 pulse, 132/74 blood pressure, 20 respiratory rate, 100% O2 saturation on room air. HEENT: Head is atraumatic, normocephalic. HEART: Regular rate. LUNGS: Decreased breath sounds, but clear. ABDOMEN: Soft. Decreased tenderness. No guarding, no rebound. Positive bowel sounds. EXTREMITIES: No edema. MEDICATIONS: She is currently on Ativan, Bactroban, Dilaudid, heparin, insulin, Levemir, Lopressor, Protonix, Rocephin, IV fluids and Zofran. LABORATORY DATA: She has a 9.3 white count, 9.9 hemoglobin and 31.9 hematocrit with a 273,000 platelets. Sugar is down. She has a 142 sodium, potassium is 3.8, BUN is 17, creatinine 0.9. GFR is greater than 60. Last blood sugar was 168. Calcium is 9.7, total bili is 1.1, AST is 30, ALT is 36, alkaline phosphatase 83, total protein 6.9. She had urinary tract infection. She is being seen by multiple physicians, GI and Endocrinology. ASSESSMENT AND PLAN: I am hoping she could start to eat a little bit better and if I cannot discharge her in the next 24 hours, once she gets the okay from GI, she is supposed to go back to a specialist, I believe, at [facility] for Botox injection for severe gastroparesis that she has. She was here for DKA, UTI, gastroparesis, high blood sugars and abdominal pain. David Theodore DO MTDR[facility] Ann
--- NOTE | 2018-01-23 13:59 | CP.PCM.PN ---
<Marietta Hernandez - Last Filed: 01/23/18 13:54> Subjective - Date & Time of Evaluation Date of Evaluation: 01/23/18 Time of Evaluation: 11:30 - Subjective Subjective: GI Progress Note Dr Gomez Pt was seen and examined at bedside. Pt states her abdominal pain is improved compared to yesterday. Pt is drinking juice and will attempt to eat more. Low motivation noted. Last bm noted to be on Monday. Pt denied fevers, chills, sob, chest pains, nausea, vomiting,diarrhea, constipation, urinary symptoms. Objective - Vital Signs/Intake and Output Vital Signs (last 24 hours): Temp Pulse Resp BP Pulse Ox 98.7 F 90 20 132/74 100 01/23/18 07:30 01/23/18 07:30 01/23/18 07:30 01/23/18 07:30 01/23/18 07:30 Intake and Output: 01/23/18 01/23/18 06:59 18:59 Intake Total 240 Balance 240 - Medications Medications: Current Medications Heparin Sodium (Porcine) (Heparin) 5,000 units SC Q12 MICHELLE PRN Reason: Protocol Last Admin: 01/23/18 09:24 Dose: 5,000 units Hydromorphone HCl (Dilaudid) 0.5 mg IVP Q2H PRN PRN Reason: Pain, severe (8-10) Last Admin: 01/23/18 12:20 Dose: 0.5 mg Ceftriaxone Sodium (Rocephin 1 Gram Ivpb) 1 gm in 100 mls @ 100 mls/hr IVPB DAILY MICHELLE PRN Reason: Protocol Last Admin: 01/23/18 09:24 Dose: 100 mls/hr Sodium Chloride (Sodium Chloride 0.45%) 1,000 mls @ 100 mls/hr IV .Q10H MICHELLE Last Admin: 01/22/18 11:09 Dose: 100 mls/hr Insulin Detemir (Levemir) 20 unit SC HS MICHELLE Last Admin: 01/22/18 21:06 Dose: 20 unit Insulin Human Lispro (Humalog) 4 units SC AC MICHELLE Last Admin: 01/23/18 12:19 Dose: 4 units Insulin Human Lispro (Humalog Low) 0 units SC ACHS MICHELLE PRN Reason: Protocol Last Admin: 01/23/18 12:19 Dose: Not Given Lorazepam (Ativan) 0.5 mg IVP Q6H PRN; Protocol PRN Reason: Anxiety Last Admin: 01/23/18 08:26 Dose: 0.5 mg Metoprolol Tartrate (Lopressor) 5 mg IVP Q6 PRN PRN Reason: Systolic Blood Pressure Last Admin: 01/21/18 20:08 Dose: 5 mg Mupirocin (Bactroban Ointment) 0 gm TOP BID [facility] Last Admin: 01/23/18 09:24 Dose: 1 gm Ondansetron HCl (Zofran Inj) 4 mg IVP Q4H PRN PRN Reason: Nausea/Vomiting Last Admin: 01/23/18 06:29 Dose: 4 mg Pantoprazole Sodium (Protonix Inj) 40 mg IVP DAILY [facility] Last Admin: 01/23/18 09:24 Dose: 40 mg - Labs Labs: 01/23/18 06:45 01/23/18 06:45 - Constitutional Appears: No Acute Distress - Head Exam Head Exam: ATRAUMATIC, NORMAL INSPECTION, NORMOCEPHALIC - Eye Exam Eye Exam: EOMI, Normal appearance, PERRL Pupil Exam: NORMAL ACCOMODATION, PERRL - ENT Exam ENT Exam: Mucous Membranes Moist, Normal Exam - Neck Exam Neck Exam: Full ROM, Normal Inspection. absent: Lymphadenopathy - Respiratory Exam Respiratory Exam: Clear to Ausculation Bilateral, NORMAL BREATHING PATTERN - Cardiovascular Exam Cardiovascular Exam: REGULAR RHYTHM, +S1, +S2. absent: Murmur - GI/Abdominal Exam GI & Abdominal Exam: Soft, Tenderness (Diffuse), Normal Bowel Sounds - Extremities Exam Extremities Exam: Full ROM, Normal Capillary Refill, Normal Inspection. absent : Joint Swelling, Pedal Edema - Back Exam Back Exam: NORMAL INSPECTION - Neurological Exam Neurological Exam: Alert, Awake, CN II-XII Intact, Oriented x3 - Psychiatric Exam Psychiatric exam: Normal Affect, Normal Mood - Skin Skin Exam: Dry, Intact, Normal Color, Warm Assessment and Plan - Assessment and Plan (Free Text) Assessment: 42 y/o F with PMH of DM type 1, gastroparesis, HTN, Duodenal ulcers, and GERD presents to [facility] ED with nausea, vomiting, and palpitations admitted to ICU for possible DKA. Pt AGAP closed on basal insulin, insulin sliding scale, IVF 1/2 NS@100. Rocephin for possible PID. Cultures pending. Pt is Afebrile, without leukoctysosis. CT Abdomen demonstrated recurrent ruptured ovarian cysts. Abdominal pain likely due to ruptured ovarian cysts vs gastroparesis on Dilaudid prn for pain. Zofran prn for nausea/vomiting. Continue high dose PPI for GI ppx. ADAT. 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 Monitor H&H, EGD colonoscopy electively Discussed with Dr. Gomez <Bev Gomez V - Last Filed: 01/28/18 21:14> Objective - Vital Signs/Intake and Output Vital Signs (last 24 hours): Temp Pulse Resp BP Pulse Ox 98.4 F 122 H 18 176/111 H 97 01/23/18 22:31 01/23/18 22:31 01/23/18 22:31 01/23/18 22:31 01/23/18 22:31 Intake and Output: 01/23/18 01/24/18 18:59 06:59 Intake Total 1020 Balance 1020 - Medications Medications: Current Medications Heparin Sodium (Porcine) (Heparin) 5,000 units SC Q12 MICHELLE PRN Reason: Protocol Last Admin: 01/23/18 21:39 Dose: 5,000 units Hydromorphone HCl (Dilaudid) 0.5 mg IVP Q2H PRN PRN Reason: Pain, severe (8-10) Last Admin: 01/23/18 20:09 Dose: 0.5 mg Ceftriaxone Sodium (Rocephin 1 Gram Ivpb) 1 gm in 100 mls @ 100 mls/hr IVPB DAILY MICHELLE PRN Reason: Protocol Last Admin: 01/23/18 09:24 Dose: 100 mls/hr Sodium Chloride (Sodium Chloride 0.45%) 1,000 mls @ 100 mls/hr IV .Q10H MICHELLE Last Admin: 01/22/18 11:09 Dose: 100 mls/hr Insulin Detemir (Levemir) 20 unit SC HS MICHELLE Last Admin: 01/23/18 21:39 Dose: 20 unit Insulin Human Lispro (Humalog Low) 0 units SC ACHS MICHELLE PRN Reason: Protocol Last Admin: 01/23/18 22:39 Dose: Not Given Insulin Human Lispro (Humalog) 6 units SC AC MICHELLE Lorazepam (Ativan) 0.5 mg IVP Q6H PRN; Protocol PRN Reason: Anxiety Last Admin: 01/23/18 08:26 Dose: 0.5 mg Metoprolol Tartrate (Lopressor) 5 mg IVP Q6 PRN PRN Reason: Systolic Blood Pressure Last Admin: 01/23/18 22:13 Dose: 5 mg Mupirocin (Bactroban Ointment) 0 gm TOP BID [facility] Last Admin: 01/23/18 17:22 Dose: 1 gm Ondansetron HCl (Zofran Inj) 4 mg IVP Q4H PRN PRN Reason: Nausea/Vomiting Last Admin: 01/23/18 20:09 Dose: 4 mg Pantoprazole Sodium (Protonix Inj) 40 mg IVP DAILY [facility] Last Admin: 01/23/18 09:24 Dose: 40 mg - Labs Labs: 01/23/18 06:45 01/23/18 06:45 Attending/Attestation - Attestation I have personally seen and examined this patient.: Yes I have fully participated in the care of the patient.: Yes I have reviewed all pertinent clinical information, including history, physical exam and plan: Yes Notes (Text): This is an addendum to GI consult report dictated by the Bulk Driver.The patient was seen and examined earlier. Medical records, lab studies, imagings were reviewed. Last 24 hours events reviewed. Agreed with the above treatment plan as outlined in Bulk Driver 's notes the with the addition of the following on examination mild tenderness present the epigastric area On clear liquids Continue PPI close follow-up with a hemoglobin hematocrit slowly advance the diet as tolerated 01/23/18 23:56 01/28/18 21:13
[2018-01-23] MEDS: Insulin Detemir 100 units/ml Vial (Levemir) SC SCH (21:39)
[2018-01-23] MEDS: Metoprolol 1 mg/ml Inj IVP PRN (22:13)
[2018-01-24] MEDS: HYDROmorphone 0.5 mg/0.5 ml ISec IVP PRN ×4 (01:02→19:54)
[2018-01-24 06:52] LABS: HEMOGLOBIN 10.9 g/dL (12.0-16.0); MEAN CELL VOLUME 83.7 fl (80.0-105.0); MEAN CORPUSCULAR HEMOGLOBIN 26.6 pg (25.0-35.0); MEAN CORPUSCULAR HGB CONC 31.8 g/dl (31.0-37.0); MEAN PLATELET VOLUME 9.1 fl (7.0-11.0); RBC 4.1 10^6/uL (3.5-6.1); RED CELL DISTRIBUTION WIDTH 15.9 % (11.5-14.5); WHITE BLOOD COUNT 6.3 10^3/ul (4.5-11.0)
[2018-01-24 07:09] LABS: ALB/GLOB RATIO 1.1 (1.1-1.8); ALBUMIN 3.9 g/dL (3.0-4.8); ALT/SGPT 37 U/L (7-56); AST/SGOT 27 U/L (14-36); BLOOD UREA NITROGEN 13 mg/dL (7-21); CALCIUM 9.6 mg/dL (8.4-10.5); GFR AFRICAN-AMERICAN > 60; GFR NON-AFRICAN AMERICAN > 60
[2018-01-24 07:53] VITALS: RESP 20
[2018-01-24] MEDS: Insulin Lispro (humaLOG) LOW Coverage SC SCH ×4 (08:21→22:02)
[2018-01-24] MEDS: Insulin Lispro 1 UNITS/0.01 ML SC SCH ×2 (08:22→14:43)
--- NOTE | 2018-01-24 08:35 | PN ---
DATE: SUBJECTIVE: I saw her resting comfortably in bed. She is really not talking that much. She is not eating that much. She had 1 sip of apple juice in the past 48 hours. The nurse said she just will not eat. She is still in abdominal pain. She is sleeping most of the time. She is just not feeling well. I asked her to try and eat more. She said she does not feel hungry. She feels uncomfortable and cannot eat. PHYSICAL EXAMINATION: VITAL SIGNS: She has a 98.4 temp, 98 pulse, 162/82 blood pressure, 18 respiratory rate, 97% O2 sat on room air. HEENT: Head is atraumatic, normocephalic. HEART: Regular rate. LUNGS: Decreased breath sounds. ABDOMEN: Decreased bowel sounds, but mildly tender. No guarding. No rebound. LABORATORY DATA: She has a 6.3 white count, 10.9 hemoglobin, 34.3 hematocrit with 244 platelets. 139 sodium, potassium 3.9, BUN 30, creatinine 0.7, GFR is greater than 60, sugar is 149, calcium is 9.6, total bili is 1.1, AST is 27, ALT is 37, alk phos 88, total protein 7.4. MEDICATIONS: She is on Ativan, Bactroban cream, Dilaudid, heparin, insulin, Levemir, Lopressor, Protonix, Rocephin, IV fluid, Zofran. ASSESSMENT AND PLAN: She is here for diabetic ketoacidosis, urinary tract infection, abdominal pain, gastroparesis. I will see how she does, try and encourage her to eat. If she can eat, we can get her out as per Gastroenterology. David Theodore DO
[2018-01-24] MEDS: cefTRIAXone 1 gm 1 GM/100 ML BAG IVPB SCH (10:27)
[2018-01-24] MEDS ORDERED: Dextrose 50% SYRINGE Inj (50 ml) IVP ONE (11:27)
[2018-01-24] MEDS: Sodium Chloride 0.45% 1,000 ML IV SCH (12:35)
--- NOTE | 2018-01-24 16:19 | PN ---
DATE: ENDOCRINOLOGY FOLLOWUP NOTE LOCATION: Room 568. SUBJECTIVE: This is a 42-year-old female presenting here with exacerbation of diabetic gastroparesis with intractable vomiting and persistent nausea and dyspepsia with variable oral intake and is now being followed closely for metabolic management. Her glycemic levels are fluctuating, but much improved at this time and the latest glucose levels have ranged from 149 to 169 mg/dL. However, the glucose levels dropped to 35 at noon time today because of the very suboptimal meal portions as noted. Her latest chemistry showed a BUN of 13. Sodium 139, potassium 3.9, chloride 105, CO2 of 22. Glucose 180. Creatinine 0.7. Her glucose values have ranged from 149 to 169 mg/dL as mentioned. So, at this time, we will modify once again her basal and bolus insulin regimen and lower the Humalog to 4 units subcu t.i.d. before meals to start at dinner time today as ordered. We will also continue the basal insulin given as Levemir at 20 units subcu at bedtime daily as given. We will titrate incrementally as indicated to optimize metabolic control. We will follow and advise accordingly. Tamara Campo MD
[2018-01-24] MEDS ORDERED: Insulin Lispro 1 UNITS/0.01 ML SC SCH (16:30)
[2018-01-24] MEDS: Insulin Detemir 100 units/ml Vial (Levemir) SC SCH (22:05)
--- NOTE | 2018-01-24 22:44 | CP.PCM.PN ---
<Marietta Hernandez - Last Filed: 01/24/18 22:41> Subjective - Date & Time of Evaluation Date of Evaluation: 01/24/18 Time of Evaluation: 11:00 - Subjective Subjective: GI Progress Note Dr Gomez Pt was seen and examined at bedside. Pt states her abdominal pain is improved compared to yesterday. Pt is eating more than yesterday. Low motivation noted. No bm overnight. No acute or adverse events overnight. Pt denied fevers, chills , sob,chest pains, nausea, vomiting,diarrhea, constipation, urinary symptoms. Objective - Vital Signs/Intake and Output Vital Signs (last 24 hours): Temp Pulse Resp BP Pulse Ox 97.9 F 118 H 20 127/81 99 01/24/18 15:09 01/24/18 15:09 01/24/18 15:09 01/24/18 07:52 01/24/18 15:09 Intake and Output: 01/24/18 01/25/18 18:59 06:59 Intake Total 500 Output Total 0 Balance 500 0 - Medications Medications: Current Medications Heparin Sodium (Porcine) (Heparin) 5,000 units SC Q12 MICHELLE PRN Reason: Protocol Last Admin: 01/24/18 22:05 Dose: 5,000 units Hydromorphone HCl (Dilaudid) 0.5 mg IVP Q2H PRN PRN Reason: Pain, severe (8-10) Last Admin: 01/24/18 19:54 Dose: 0.5 mg Ceftriaxone Sodium (Rocephin 1 Gram Ivpb) 1 gm in 100 mls @ 100 mls/hr IVPB DAILY MICHELLE PRN Reason: Protocol Last Admin: 01/24/18 10:27 Dose: 100 mls/hr Sodium Chloride (Sodium Chloride 0.45%) 1,000 mls @ 100 mls/hr IV .Q10H [facility] Last Admin: 01/24/18 12:35 Dose: 100 mls/hr Insulin Detemir (Levemir) 20 unit SC HS [facility] Last Admin: 01/24/18 22:05 Dose: 20 unit Insulin Human Lispro (Humalog Low) 0 units SC ACHS MICHELLE PRN Reason: Protocol Last Admin: 01/24/18 22:02 Dose: Not Given Insulin Human Lispro (Humalog) 6 units SC AC [facility] Lorazepam (Ativan) 0.5 mg IVP Q6H PRN; Protocol PRN Reason: Anxiety Last Admin: 01/24/18 01:02 Dose: 0.5 mg Metoprolol Tartrate (Lopressor) 5 mg IVP Q6 PRN PRN Reason: Systolic Blood Pressure Last Admin: 01/23/18 22:13 Dose: 5 mg Mupirocin (Bactroban Ointment) 0 gm TOP BID [facility] Last Admin: 01/24/18 20:05 Dose: Not Given Ondansetron HCl (Zofran Inj) 4 mg IVP Q4H PRN PRN Reason: Nausea/Vomiting Last Admin: 01/24/18 19:55 Dose: 4 mg Pantoprazole Sodium (Protonix Inj) 40 mg IVP DAILY [facility] Last Admin: 01/24/18 10:27 Dose: 40 mg - Labs Labs: 01/24/18 06:41 01/24/18 06:41 - Constitutional Appears: No Acute Distress - Head Exam Head Exam: ATRAUMATIC, NORMAL INSPECTION, NORMOCEPHALIC - Eye Exam Eye Exam: EOMI, Normal appearance, PERRL - ENT Exam ENT Exam: Mucous Membranes Moist, Normal Exam - Respiratory Exam Respiratory Exam: Clear to Ausculation Bilateral, NORMAL BREATHING PATTERN - Cardiovascular Exam Cardiovascular Exam: REGULAR RHYTHM, +S1, +S2. absent: Murmur - GI/Abdominal Exam GI & Abdominal Exam: Soft, Normal Bowel Sounds. absent: Tenderness - Extremities Exam Extremities Exam: Full ROM, Normal Capillary Refill, Normal Inspection. absent : Joint Swelling, Pedal Edema - Back Exam Back Exam: NORMAL INSPECTION - Neurological Exam Neurological Exam: Alert, Awake, CN II-XII Intact, Normal Gait, Oriented x3 - Psychiatric Exam Psychiatric exam: Normal Affect, Normal Mood - Skin Skin Exam: Dry, Intact, Normal Color, Warm Assessment and Plan - Assessment and Plan (Free Text) Assessment: 42 y/o F with PMH of DM type 1, gastroparesis, HTN, Duodenal ulcers, and GERD presents to [facility] ED with nausea, vomiting, and palpitations admitted to ICU for possible DKA. Pt AGAP closed on basal insulin, insulin sliding scale, IVF 1/2 NS@100. Rocephin for possible PID. Cultures pending. Pt is Afebrile, without leukoctysosis. CT Abdomen demonstrated recurrent ruptured ovarian cysts. Abdominal pain likely due to ruptured ovarian cysts vs gastroparesis on Dilaudid prn for pain. Zofran prn for nausea/vomiting. Continue high dose PPI for GI ppx. ADAT. 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 Monitor H&H, EGD colonoscopy electively Discussed with Dr. Gomez <Bev Gomez V - Last Filed: 01/25/18 00:04> Objective - Vital Signs/Intake and Output Vital Signs (last 24 hours): Temp Pulse Resp BP Pulse Ox 97.9 F 118 H 20 127/81 99 01/24/18 15:09 01/24/18 15:09 01/24/18 15:09 01/24/18 07:52 01/24/18 15:09 Intake and Output: 01/24/18 01/25/18 18:59 06:59 Intake Total 500 Output Total 0 Balance 500 0 - Medications Medications: Current Medications Heparin Sodium (Porcine) (Heparin) 5,000 units SC Q12 MICHELLE PRN Reason: Protocol Last Admin: 01/24/18 22:05 Dose: 5,000 units Hydromorphone HCl (Dilaudid) 0.5 mg IVP Q2H PRN PRN Reason: Pain, severe (8-10) Last Admin: 01/24/18 19:54 Dose: 0.5 mg Ceftriaxone Sodium (Rocephin 1 Gram Ivpb) 1 gm in 100 mls @ 100 mls/hr IVPB DAILY MICHELLE PRN Reason: Protocol Last Admin: 01/24/18 10:27 Dose: 100 mls/hr Sodium Chloride (Sodium Chloride 0.45%) 1,000 mls @ 100 mls/hr IV .Q10H MICHELLE Last Admin: 01/24/18 12:35 Dose: 100 mls/hr Insulin Detemir (Levemir) 20 unit SC HS MICHELLE Last Admin: 01/24/18 22:05 Dose: 20 unit Insulin Human Lispro (Humalog Low) 0 units SC ACHS MICHELLE PRN Reason: Protocol Last Admin: 01/24/18 22:02 Dose: Not Given Insulin Human Lispro (Humalog) 6 units SC AC MICHELLE Lorazepam (Ativan) 0.5 mg IVP Q6H PRN; Protocol PRN Reason: Anxiety Last Admin: 01/24/18 01:02 Dose: 0.5 mg Metoprolol Tartrate (Lopressor) 5 mg IVP Q6 PRN PRN Reason: Systolic Blood Pressure Last Admin: 01/23/18 22:13 Dose: 5 mg Mupirocin (Bactroban Ointment) 0 gm TOP BID [facility] Last Admin: 01/24/18 20:05 Dose: Not Given Ondansetron HCl (Zofran Inj) 4 mg IVP Q4H PRN PRN Reason: Nausea/Vomiting Last Admin: 01/24/18 19:55 Dose: 4 mg Pantoprazole Sodium (Protonix Inj) 40 mg IVP DAILY [facility] Last Admin: 01/24/18 10:27 Dose: 40 mg - Labs Labs: 01/24/18 06:41 01/24/18 06:41 Attending/Attestation - Attestation I have personally seen and examined this patient.: Yes I have fully participated in the care of the patient.: Yes I have reviewed all pertinent clinical information, including history, physical exam and plan: Yes Notes (Text): This is an addendum to GI consult report dictated by the Advanced Practice Psychiatric Nurse.The patient was seen and examined earlier. Medical records, lab studies, imagings were reviewed. Last 24 hours events reviewed. Agreed with the above treatment plan as outlined in Advanced Practice Psychiatric Nurse 's notes the with the addition of the following 01/25/18 00:04
[2018-01-25] MEDS: Sodium Chloride 0.45% 1,000 ML IV SCH ×3 (04:31→19:02)
[2018-01-25] MEDS: HYDROmorphone 0.5 mg/0.5 ml ISec IVP PRN (05:16)
[2018-01-25 07:24] LABS: HEMOGLOBIN 9.6 g/dL (12.0-16.0); MEAN CELL VOLUME 82.2 fl (80.0-105.0); MEAN CORPUSCULAR HEMOGLOBIN 26.3 pg (25.0-35.0); MEAN PLATELET VOLUME 9.1 fl (7.0-11.0); RBC 3.65 10^6/uL (3.5-6.1); RED CELL DISTRIBUTION WIDTH 15.4 % (11.5-14.5); WHITE BLOOD COUNT 4.4 10^3/ul (4.5-11.0)
[2018-01-25 07:39] LABS: ALBUMIN 3.2 g/dL (3.0-4.8); ALT/SGPT 34 U/L (7-56); AST/SGOT 20 U/L (14-36); BLOOD UREA NITROGEN 12 mg/dL (7-21); CALCIUM 8.8 mg/dL (8.4-10.5); GFR AFRICAN-AMERICAN > 60; GFR NON-AFRICAN AMERICAN > 60
[2018-01-25] MEDS: Insulin Lispro (humaLOG) LOW Coverage SC SCH ×4 (08:48→21:56)
[2018-01-25] MEDS: Insulin Lispro 1 UNITS/0.01 ML SC SCH ×3 (08:48→17:05)
[2018-01-25] MEDS ORDERED: Potassium Chloride 20 mEq ER Tab PO ONE (09:59)
[2018-01-25] MEDS: cefTRIAXone 1 gm 1 GM/100 ML BAG IVPB SCH (10:41)
--- NOTE | 2018-01-25 12:02 | PN ---
DATE: SUBJECTIVE: She is sitting up in bed this morning, eating a little bit of breakfast, first time she has eaten, so that is a good sign. She does not want to go home but trying to get food in her hoping for tomorrow. She is on Ativan, Bactroban cream, heparin, insulin, Levemir, Lopressor, Protonix, Rocephin, IV fluids, Toradol and Zofran. I stopped the Dilaudid and changed it to Toradol. She started to eat now. PHYSICAL EXAMINATION: VITAL SIGNS: She has a 99 temperature, 100 pulse, 145/89 blood pressure, 20 respiratory rate and 100% O2 sat on room air. HEENT: Head: Atraumatic, normocephalic. HEART: Regular rate. LUNGS: Clear to auscultation. ABDOMEN: Soft. EXTREMITIES: No edema. LABORATORY DATA: She has a 4.4 white count, 9.6 hemoglobin, 30 hematocrit with 242 platelets. Sodium 137, potassium 3.5, I will give her some potassium. BUN is 12, creatinine 0.8, GFR is greater than 60, sugar is 203, calcium is 8.8, total bili is 0.6, AST is 20, ALT is 34, alkaline phosphatase is 69, total protein 6.3. She is being seen by Endocrinology, GI and Surgery and my plan is to get her eat today and get her out tomorrow. Change her medicines around and hopefully get her out of bed to chair. David Theodore DO MTDD
--- NOTE | 2018-01-25 17:13 | PN ---
ENDOCRINOLOGY FOLLOWUP NOTE LOCATION: Room 568. SUBJECTIVE: This is a 42-year-old female with recent uncontrolled type 1 insulin-dependent diabetes, now being followed closely for metabolic management. Her glycemic levels are fluctuating, but much improved at this time especially overnight as noted and the glucose values today have ranged from 89 to 203 mg/dL. LABORATORY DATA: The latest chemistry showed a BUN of 12. Sodium 137, potassium 3.5, chloride 103, CO2 of 27. Glucose 234. Creatinine 0.8. Her bedtime glucose was still 307 last night as noted. So at this time to allow for dose equilibration. We will continue the same basal and bolus insulin regimen as given with Humalog given at 6 units subq t.i.d. before meals as ordered. We will continue the Levemir given as 20 units subq at bedtime daily as ordered. We will titrate incrementally as indicated to optimize metabolic control. We will follow and advise accordingly. Tamara Campo MD
[2018-01-25] MEDS ORDERED: POLYETHYLENE GLYCOL 3350 17 GM/Dose PACKET PO PRN (20:45)
[2018-01-25] MEDS: Insulin Detemir 100 units/ml Vial (Levemir) SC SCH (21:56)
[2018-01-26 01:46] VITALS: O2SAT 98
--- NOTE | 2018-01-26 04:29 | PN ---
DATE: 01/25/2018 SUBJECTIVE: This patient was seen and evaluated earlier today. Patient is now feeling better slightly, tolerating the diet. PHYSICAL EXAMINATION: VITAL SIGNS: Temperature is 98.7, blood pressure 146/87, respiration is 20, O2 saturation 99%. HEENT: Atraumatic, anicteric. NECK: Supple. HEART: S1 and S2 regular. LUNGS: Bilateral air entry present. ABDOMEN: Soft. There is mild tenderness in the epigastric area. There is no rebound or guarding. EXTREMITIES: No cyanosis. No clubbing. NEUROLOGIC: Alert, oriented, moves all the extremities. Patient does have dyskinetic movements. LABORATORY DATA: Hemoglobin 9.6, hematocrit 30, WBC 4.4, platelets 292. Patient is now tolerating diet. Patient did not have any diarrhea. Patient has severe gastroparesis, status post Botox injection before in [place]. She is being now followed in [facility]. She is due to have a follow up another Botox injection in the antrum. History of anemia. Esophageal ulceration. Patient will benefit from upper GI endoscopic evaluation, which can be considered at the time of the Botox injection. For his history of anemia, probably related to the esophageal ulcer. She will benefit from elective colonoscopic evaluation, patient is status post DKA, would avoid preparing the patient for chronic evaluation now. History of constipation. Can use MiraLax on p.r.n. basis. Thank you very much for allowing me to participate in the care of the patient. Bev Gomez MD HIGINIO
[2018-01-26] MEDS: Sodium Chloride 0.45% 1,000 ML IV SCH (05:45)
[2018-01-26 07:09] LABS: HEMOGLOBIN 9.8 g/dL (12.0-16.0); MEAN CELL VOLUME 81.4 fl (80.0-105.0); MEAN CORPUSCULAR HEMOGLOBIN 26.5 pg (25.0-35.0); MEAN CORPUSCULAR HGB CONC 32.6 g/dl (31.0-37.0); MEAN PLATELET VOLUME 8.7 fl (7.0-11.0); RBC 3.7 10^6/uL (3.5-6.1); RED CELL DISTRIBUTION WIDTH 15.4 % (11.5-14.5); WHITE BLOOD COUNT 5.3 10^3/ul (4.5-11.0)
[2018-01-26 07:27] LABS: ALBUMIN 3.2 g/dL (3.0-4.8); ALT/SGPT 30 U/L (7-56); AST/SGOT 21 U/L (14-36); BLOOD UREA NITROGEN 12 mg/dL (7-21); CALCIUM 9.3 mg/dL (8.4-10.5); GFR AFRICAN-AMERICAN > 60; GFR NON-AFRICAN AMERICAN > 60
[2018-01-26] MEDS: Insulin Lispro 1 UNITS/0.01 ML SC SCH ×2 (07:45→11:33)
[2018-01-26] MEDS: Insulin Lispro (humaLOG) LOW Coverage SC SCH ×2 (07:45→11:39)
[2018-01-26 08:04] VITALS: BP 125/76; PULSE 92; TEMP 100
[2018-01-26] MEDS: cefTRIAXone 1 gm 1 GM/100 ML BAG IVPB SCH (09:45)
[2018-01-26] MEDS ORDERED: Influenza Vaccine 60 mcg/0.5 mL SYR (4YR UP) IM ONE (11:03)
--- NOTE | 2018-01-26 13:39 | PN ---
DATE: ENDOCRINOLOGY FOLLOWUP LOCATION: Room 568. SUBJECTIVE: This is a 42-year-old female with recent uncontrolled type 1 insulin-dependent diabetes, presenting here with acute exacerbation of diabetic gastroparesis with diffuse abdominal pain and supervening intractable vomiting episodes and has since then improved clinically and metabolically as noted thereof. Her glucose levels are fluctuating, but improved and the latest glucose levels have ranged from 89-203 and 303 mg/dL. Her latest chemistry showed a BUN of 12, sodium 137, potassium 3.5, chloride 103, CO2 of 27, glucose 234 and creatinine 0.8. So at this time, we will continue the modified basal and bolus insulin regimen to allow for dose equilibration and keep her on the Humalog given as 6 units subcu t.i.d. before meals as ordered. We will continue the Levemir given as basal insulin at 20 units subcu at bedtime daily as given. We will continue also the low-dose correction scale using Humalog insulin given as 6 units t.i.d. before meals as ordered. We will continue also the low-dose correction scale using Humalog insulin as given. We will titrate incrementally as indicated to optimize metabolic control. We will obtain serial chemistries and supplement accordingly as needed. We will follow. Tamara Campo MD
--- NOTE | 2018-01-27 02:32 | DS ---
HISTORY OF PRESENT ILLNESS: I saw Shanelle resting comfortably in bed this morning. She actually slept well. She is smiling at me. She feels much better. She is ready to eat her breakfast. She is in good mood. No chest pain or shortness of breath. No abdominal pain. PHYSICAL EXAMINATION: VITAL SIGNS: She has a 100 temperature, 92 pulse, 125/76 blood pressure, 20 respiratory rate, 90% O2 sat on room air. HEENT: Head is atraumatic, normocephalic. HEART: Regular rate. LUNGS: Clear to auscultation. ABDOMEN: Soft. EXTREMITIES: No edema. MEDICATIONS: She is on Ativan, Bactroban, heparin, Humalog, Levemir, Lopressor, MiraLax, Protonix, ceftriaxone, IV fluids, Toradol, Zofran. LABORATORY DATA: She has a 5.3 white count, 9.8 hemoglobin, 30.1 hematocrit with 240 platelets. Her lactate was down to 1, which is good. Sodium 137, potassium 3.8, BUN 12, creatinine 0.8, GFR is greater than 60, sugar is 141 better, calcium is 9.3. Total bili is 0.6, AST is 21, ALT is 30, alk phos 67, total protein 6.4. ASSESSMENT AND PLAN: When she came in she had little bit of urinary tract infection and she had a negative flu. She is being seen by GI, Endocrinology. Dr. Gomez saw her this morning and he said she can use MiraLax on a p.r.n. basis for her constipation. He wants to do an outpatient colonoscopy in the near future and she will be able to be discharged today. I would like to see her in a week in the office. David Theodore DO
== END 2018-01-26 13:57 | disposition home or self-care (01) | DRG 294 ==
LOC: ED 10:07 → ERH 12:40 → ICU 14:16 → 5RNO 01-22 14:22
PROVIDERS: ADMIT Family Medicine; ATTEND Family Medicine
DX: E10.10 Type 1 diabetes mellitus with ketoacidosis without coma (principal); N39.0 Urinary tract infection, site not specified; E86.0 Dehydration; K31.84 Gastroparesis; E10.43 Type 1 diabetes mellitus with diabetic autonomic (poly)neuropathy; E10.51 Type 1 diabetes mellitus with diabetic peripheral angiopathy without gangrene; K22.10 Ulcer of esophagus without bleeding; K21.0 Gastro-esophageal reflux disease with esophagitis; K29.70 Gastritis, unspecified, without bleeding; F41.9 Anxiety disorder, unspecified; D64.9 Anemia, unspecified; N83.202 Unspecified ovarian cyst, left side; N83.201 Unspecified ovarian cyst, right side; Z87.11 Personal history of peptic ulcer disease

== ENCOUNTER 2018-03-15 09:37 | Inpatient (IN) | payer MEDICAID ==
[2018-03-15 09:50] VITALS: BMI 23.4
[2018-03-15] MEDS ORDERED: Sodium Chloride 0.9% 1,000 ML IV STA (10:09)
[2018-03-15] MEDS ORDERED: HYDROmorphone 0.5 mg/0.5 ml ISec IVP STA ×2 (10:09→13:46)
[2018-03-15] MEDS ORDERED: Famotidine 20mg/50ml 20 MG/50 ML BAG IVPB STA (10:10)
--- NOTE | 2018-03-15 10:25 | ED PDOC ---
Arrival/HPI - General Chief Complaint: Chest Pain Time Seen by Provider: 03/15/18 09:56 Historian: Patient - History of Present Illness Narrative History of Present Illness (Text): 03/15/18 10:27 A 43 year old female, whose past medical history includes GERD, gastroparesis, DM type 1, hypertension and duodenal ulcers, arrived to emergency department with persistent nausea and vomiting since yesterday. Patient also describes epigastric discomfort, severe pain, similar to prior gastroparesis attacks. Reports symptoms are severe, pain is excruciating. Notes some lightheadedness and unable to eat. Reports vomited 10 episodes since yesterday, non bloody. Patient with questionable diffuse chest pain. LBM was three days ago, urination unchanged, Denies any falls, trauma, sick contacts. Patient was recently admitted for similar symptoms on 01/21/18. Patient presents to the emergency department for further evaluation. Patient denies any fever, sweats, shortness of breath or any other complaints at this time. pt states her symptoms currently are as bad as when she was recently admitted for epgiastric pain/gastroparesis/n/v/DKA PMD: Dr. Theodore GI: Dr. Gomez and another attending (in [place]) Time/Duration: 24 hours Symptom Onset: Sudden Symptom Course: Unchanged, Worsening Quality: Cramping Severity Level: 10, Severe Activities at Onset: Rest Context: Home Past Medical History - Provider Review Nursing Documentation Reviewed: Yes - Travel History Have you recently traveled outside [place] w/in the past 3 mons?: No - Past History Past History: No Previous - Infectious Disease Hx of Infectious Diseases: None - Tetanus Immunization Tetanus Immunization: Unknown - Reproductive Menopause: No Currently : Unknown - Past Medical History Past Medical History: No Previous - Cardiac Hx Cardiac Disorders: Yes Hx Hypertension: Yes - Pulmonary Hx Respiratory Disorders: No - Neurological Hx Neurological Disorder: Yes (NEUROPATHY) - HEENT Hx HEENT Disorder: Yes Other/Comment: wears glasses-nearsighted - Renal Hx Renal Disorder: No - Endocrine/Metabolic Hx Diabetes Mellitus Type 1: Yes (hx DKA) - Hematological/Oncological Hx Anemia: Yes - Integumentary Hx Dermatological Disorder: Yes (hx diabetic foot ulcers) - Musculoskeletal/Rheumatological Hx Falls: No Hx Osteomyelitis: Yes (left foot 2014) - Gastrointestinal Hx Gastrointestinal Disorders: Yes (gastritis,gastroparesis) Hx Gastroesophageal Reflux: Yes - Genitourinary/Gynecological Hx Urinary Tract Infection: Yes - Psychiatric Hx Psychophysiologic Disorder: Yes Hx Anxiety: Yes Hx Substance Use: No - Past Surgical History Past Surgical History: No Previous - Surgical History Hx Cardiac Catheterization: No - Anesthesia Hx Anesthesia: No Hx Anesthesia Reactions: No Hx Malignant Hyperthermia: No - Suicidal Assessment Feels Threatened In Home Enviroment: No Family/Social History - Physician Review Nursing Documentation Reviewed: Yes Family/Social History: No Known Family HX Smoking Status: Never Smoked Hx Alcohol Use: No Hx Substance Use: No Hx Substance Use Treatment: No Allergies/Home Meds Allergies/Adverse Reactions: Allergies metoclopramide HCl [From Reglan] Adverse Reaction (Verified 03/15/18 09:47) VOMITING Review of Systems - Physician Review All systems were reviewed & negative as marked: Yes - Review of Systems Constitutional: Other (lightheadedness). absent: Fevers Eyes: Normal ENT: Normal Respiratory: absent: SOB Cardiovascular: Chest Pain, Other (questionable diffuse chest pain) Gastrointestinal: Abdominal Pain (epigastric), Nausea, Vomiting, Appetite Changes Genitourinary Female: absent: Urine Output Changes Musculoskeletal: Normal Skin: Normal Neurological: Dizziness Endocrine: absent: Diaphoresis Hemo/Lymphatic: Normal Psychiatric: Normal Physical Exam Vital Signs Reviewed: Yes Vital Signs Temp Pulse Resp BP Pulse Ox 03/15/18 13:42 99 H 18 149/89 100 03/15/18 09:55 98.3 F 130 H 19 147/109 H 98 03/15/18 09:47 130 H 19 98 Temperature: Afebrile Blood Pressure: Hypertensive Pulse: Tachycardic Respiratory Rate: Normal Appearance: Positive for: Uncomfortable, Other (writhing in pain; actively vomiting; cooperative, moderate distress due to pain, uncomfortable, alert/awake , GCS = 15) Pain Distress: Moderate Mental Status: Positive for: Alert and Oriented X 3 Finger Stick Blood Glucose: 135 - Systems Exam Head: Present: Atraumatic, Normocephalic Pupils: Present: PERRL, Other (visual field intact b/l, no nystagmus, no photophobia) Extroacular Muscles: Present: EOMI Conjunctiva: Present: Normal Ears: Present: Normal Mouth: Present: Dry, Normal Teeth, Other (no drooling/stridor, no exudate/ lesions, uvula/tongue are midline) Pharnyx: Present: Normal Nose (External): Present: Atraumatic Nose (Internal): Present: Normal Inspection Neck: Present: Normal Range of Motion, Trachea Midline, Other (no step off, no midline tenderness, no nuchal rigidity). No: Meningeal Signs, MIDLINE TENDERNESS Respiratory/Chest: Present: Clear to Auscultation, Good Air Exchange, Other ( CTA b/l, no w/r/r, no accessory muscle use noted, no tachypenia). No: Respiratory Distress, Accessory Muscle Use Cardiovascular: Present: Regular Rate and Rhythm, Normal S1, S2. No: Murmurs Abdomen: Present: Normal Bowel Sounds, Other (well nourished female, + diffuse mid abd tenderness, no gupta's sign, no mcburney's point tenderness, no masses/ rebound/guarding). No: Tenderness, Distention, Peritoneal Signs Back: Present: Normal Inspection, Other (no midline tenderness; no step off). No: CVA Tenderness, Midline Tenderness Upper Extremity: Present: Normal Inspection, Normal ROM, NORMAL PULSES, Neurovascularly Intact. No: Cyanosis, Edema Lower Extremity: Present: Normal Inspection, NORMAL PULSES, Normal ROM, Neurovascularly Intact. No: Edema Neurological: Present: GCS=15, CN II-XII Intact, Speech Normal Skin: Present: Warm, Dry, Normal Color, Other (cap refill ~ 1sec, no ulcerations , no petechiae, no rashes). No: Rashes Psychiatric: Present: Alert, Oriented x 3, Normal Insight, Normal Concentration Medical Decision Making ED Course and Treatment: 03/15/18 10:22 Impression: A 43 year old female with nausea, vomiting, epigastric pain, lightheadedness, loss of appetite and questionable diffuse chest pain. I have considered all differential diagnoses regarding patients chief medical complaints/clinical findings which include but are not limited to: acute gastroparesis, dehydration, r/o DKA Plan: -- EKG -- Chest X-ray -- labs -- Urinalysis -- Dilaudid, Pepcid, IV fluids, Zofran -- Reassess and disposition Prior Visits: Notes and results from previous visits were reviewed. Patient last seen in the ED on 01/21/18 for evaluation of nausea, vomiting and palpitations. Patient was admitted to the hospital for abdominal pain, DKA, tachycardia and hyperglycemia , nausea, vomiting, GI bleed. Patient was discharged 01/26/18. Progress Notes: 03/15/18 13:18 pt continues to vomit pt does not feel well pt states she does not feel comfortable going home in this state mother is at bedside states its up to her daughter to decide given pt's persistent nausea/vomiting, inability to take PO; with persistent abd pain, likely acute gastroparesis episode with moderate dehydration, will recommend admission [address] Rene Theodore, made aware of pt's medical presentation, ED mgt/txt, agrees with admission, would like to consult GI - Patricia pt/family made aware of pt's medical results agrees with admission Re-evaluation Time: 13:30 Reassessment Condition: Unchanged - Lab Interpretations Lab Results: 03/15/18 11:06 03/15/18 11:06 Lab Results 03/15/18 11:06: pO2 51, VBG pH 7.37, VBG pCO2 46.0, VBG HCO3 26.6, VBG Total CO2 28.0, VBG O2 Sat (Calc) 88.5 H, VBG Base Excess 0.8, VBG Potassium 4.2, Sodium 141.0, Chloride 107.0, Glucose 157 H, Lactate 1.0, FiO2 21.0, Venous Blood Potassium 4.2 03/15/18 11:06: Serum Osmolality 299 03/15/18 11:06: Sodium 143, Chloride 105, Potassium 4.3, Carbon Dioxide 26, Anion Gap 16, BUN 19, Creatinine 0.8, Est GFR ( Amer) > 60, Est GFR (Non- Af Amer) > 60, Random Glucose 155 H, Calcium 9.8, Total Bilirubin 0.7, AST 49 H D, ALT 29, Alkaline Phosphatase 131 H D, Troponin I 0.02 D, Total Protein 8.6 H , Albumin 4.7, Globulin 3.9, Albumin/Globulin Ratio 1.2, Amylase 64, Lipase 25 03/15/18 11:06: PT 11.8, INR 1.03, APTT 33.1 03/15/18 11:06: WBC 4.8, RBC 4.30, Hgb 11.5 L, Hct 34.8 L, MCV 80.9, MCH 26.7, MCHC 33.0, RDW 15.1 H, Plt Count 329, MPV 8.9, Gran % 57.7, Lymph % (Auto) 34.8 , [place] % (Auto) 7.1 H, Eos % (Auto) 0.2 L, Baso % (Auto) 0.2, Gran # 2.75, Lymph # (Auto) 1.7, [place] # (Auto) 0.3, Eos # (Auto) 0.0, Baso # (Auto) 0.01 03/15/18 10:45: Urine Color Yellow, Urine Appearance Clear, Urine pH 6.5, Ur Specific [place] 1.025, Urine Protein 100 H, Urine Glucose (UA) Negative, Urine Ketones 40 H, Urine Blood Trace-intact H, Urine Nitrate Positive H, Urine Bilirubin Negative, Urine Urobilinogen 1.0 H, Ur Leukocyte Esterase Trace H, Urine RBC 2 - 5, Urine WBC 5 - 10, Ur Epithelial Cells 6 - 8, Amorphous Sediment Few, Urine Bacteria Large, Urine Other Uyeast 03/15/18 10:12: POC Glucose (mg/dL) 135 H I have reviewed the lab results: Yes Interpretation: All labs normal - RAD Interpretation Narrative RAD Interpretations (Text): 03/15/18 12:15 Chest X-ray- Dictated by: Aguilar Lomas DO Impression: No active disease. Radiology Orders: 03/15/18 10:08 CHEST PORTABLE [RAD] Stat Electrical Electronics Engineer: Radiologist - EKG Interpretation EKG Interpretation (Text): 03/15/18 14:06 Sinus tach at 125 bpm, normal axis, no ectopy, no st-t changes, Borderline EKG; unchanged compare with old ekg 01/2018 Interpreted by ED Physician: Yes Type: 12 lead EKG Comparison: Similar to previous EKG - Medication Orders Current Medication Orders: Discontinued Medications Hydromorphone HCl (Dilaudid) 1 mg IVP STAT STA Stop: 03/15/18 10:10 Last Admin: 03/15/18 11:07 Dose: 1 mg HONG Pain Assessment Document 03/15/18 11:07 EQ (Rec: 03/15/18 11:07 [id number]) Pain Reassessment Is this a pain reassessment? No Sleep Is patient sleeping during reassessment? No Presence of Pain Presence of Pain Yes Pain Scale Used Pain Scale Used Numeric IVP Administration Document 03/15/18 11:07 EQ (Rec: 03/15/18 11:07 [id number]) Charges for Administration # of IVP Administrations 1 Hydromorphone HCl (Dilaudid) 0.5 mg IVP STAT STA Stop: 03/15/18 13:47 Famotidine (Pepcid 20mg/50ml Premix) 20 mg in 50 mls @ 100 mls/hr IVPB STAT STA Stop: 03/15/18 10:39 Last Admin: 03/15/18 11:07 Dose: 100 mls/hr eMAR Start Stop Document 03/15/18 11:07 EQ (Rec: 03/15/18 11:07 [id number]) Intravenous Solution Start Date 03/15/18 Start Time 11:07 Sodium Chloride (Sodium Chloride 0.9%) 1,000 mls @ 999 mls/hr IV .Q1H1M STA Stop: 03/15/18 11:09 Last Admin: 03/15/18 11:08 Dose: 999 mls/hr eMAR Start Stop Document 03/15/18 11:08 EQ (Rec: 03/15/18 11:08 [id number]) Intravenous Solution Start Date 03/15/18 Start Time 11:08 Ondansetron HCl (Zofran Inj) 8 mg IVP STAT STA Stop: 03/15/18 10:11 Last Admin: 03/15/18 11:07 Dose: 8 mg IVP Administration Document 03/15/18 11:07 EQ (Rec: 03/15/18 11:07 EQ [id number]) Charges for Administration # of IVP Administrations 1 Ondansetron HCl (Zofran Inj) 8 mg IVP STAT STA Stop: 03/15/18 13:28 Last Admin: 03/15/18 13:49 Dose: 8 mg IVP Administration Document 03/15/18 13:49 EQ (Rec: 03/15/18 13:49 EQ [id number]) Charges for Administration # of IVP Administrations 1 - Scribe Statement The provider has reviewed the documentation as recorded by the Vitaliy Green Provider Scribe Attestation: All medical record entries made by the Scribe were at my direction and personally dictated by me. I have reviewed the chart and agree that the record accurately reflects my personal performance of the history, physical exam, medical decision making, and the department course for this patient. I have also personally directed, reviewed, and agree with the discharge instructions and disposition. Disposition/Present on Arrival - Present on Arrival Any Indicators Present on Arrival: No History of DVT/PE: No History of Uncontrolled Diabetes: Yes Urinary Catheter: No History of Decub. Ulcer: No History Surgical Site Infection Following: None - Disposition Have Diagnosis and Disposition been Completed?: Yes Diagnosis: Gastroparesis, Intractable epigastric abdominal pain, Intractable nausea and vomiting, Dehydration Disposition: HOSPITALIZED Disposition Time: 13:30 Patient Plan: Admission, Observation Condition: STABLE
[2018-03-15 11:10] LABS: VENOUS BLOOD GAS BASE EXCESS 0.8 mmol/L (0.0-2.0); VENOUS BLOOD GAS PO2 51 mm/Hg (30-55); VENOUS BLOOD PH 7.37 (7.32-7.43)
[2018-03-15 11:15] LABS: BASO # 0.01 K/mm3 (0.0-2.0); BASO % 0.2 % (0.0-3.0); EOS % 0.2 % (1.5-5.0); GRAN # 2.75 (1.4-6.5); GRAN % 57.7 % (50.0-68.0); HEMOGLOBIN 11.5 g/dL (12.0-16.0); LYMPH # 1.7 (1.2-3.4); LYMPH % 34.8 % (22.0-35.0); MEAN CELL VOLUME 80.9 fl (80.0-105.0); MEAN CORPUSCULAR HEMOGLOBIN 26.7 pg (25.0-35.0); MEAN PLATELET VOLUME 8.9 fl (7.0-11.0); MONO # 0.3 (0.1-0.6); MONO % 7.1 % (1.0-6.0); RBC 4.3 10^6/uL (3.5-6.1); RED CELL DISTRIBUTION WIDTH 15.1 % (11.5-14.5); WHITE BLOOD COUNT 4.8 10^3/ul (4.5-11.0)
[2018-03-15 11:21] LABS: ALB/GLOB RATIO 1.2 (1.1-1.8); ALBUMIN 4.7 g/dL (3.0-4.8); AMYLASE 64 U/L (35-125); CALCIUM 9.8 mg/dL (8.4-10.5); GFR AFRICAN-AMERICAN > 60; GFR NON-AFRICAN AMERICAN > 60; LIPASE 25 U/L (23-300)
[2018-03-15 11:22] LABS: ALT/SGPT 29 U/L (7-56); AST/SGOT 49 U/L (14-36); BLOOD UREA NITROGEN 19 mg/dL (7-21)
[2018-03-15 11:32] LABS: PH,URINE 6.5 (4.7-8.0); URINE BILIRUBIN NEGATIVE (NEGATIVE); URINE BLOOD TRACE-INTACT (NEGATIVE); URINE GLUCOSE (UA) NEGATIVE (NEGATIVE); URINE LEUKOCYTE ESTERASE TRACE Leu/uL (NEGATIVE); URINE PROTEIN 100 mg/dL (<30 mg/dL)
[2018-03-15 11:33] LABS: TROPONIN I 0.02 ng/mL
[2018-03-15 11:35] LABS: URINE APPEARANCE CLEAR (CLEAR); URINE COLOR YELLOW (YELLOW)
[2018-03-15 11:38] LABS: INR 1.03 (0.93-1.08); PROTHROMBIN TIME 11.8 SECONDS (9.4-12.5)
[2018-03-15 11:39] LABS: PARTIAL THROMBOPLASTIN TIME 33.1 Seconds (25.1-36.5)
[2018-03-15 11:44] LABS: URINE AMORPHOUS SEDIMENT FEW
[2018-03-15 11:45] LABS: URINE BACTERIA LARGE (NEG)
--- NOTE | 2018-03-15 12:17 | RAD ---
HISTORY: epigastric pain COMPARISON: Comparison made with chest radiograph 01/21/2018 FINDINGS: LUNGS: No active pulmonary disease. PLEURA: No significant pleural effusion identified, no pneumothorax apparent. CARDIOVASCULAR: Normal. OSSEOUS STRUCTURES: No significant abnormalities. VISUALIZED UPPER ABDOMEN: Normal. OTHER FINDINGS: None. IMPRESSION: No active disease.
[2018-03-15] MEDS ORDERED: Sodium Chloride 0.45% 1,000 ML IV SCH (16:00)
[2018-03-15] MEDS: Morphine 2 mg/2 mL syringe IVP PRN ×2 (16:10→21:19)
--- NOTE | 2018-03-15 17:41 | CT ---
PROCEDURE: CT Abdomen and Pelvis without intravenous contrast HISTORY: Abdominal pain. Negative test (concurrent with this examination). COMPARISON: 01/21/2018 TECHNIQUE: Unenhanced study. Neither oral nor intravenous contrast administered. Total exam DLP = 595.81 mGy-cm. This CT exam was performed using one or more of the following dose reduction techniques: Automated exposure control, adjustment of the mA and/or kV according to patient size, and/or use of iterative reconstruction technique. FINDINGS: LOWER THORAX: Unremarkable. LIVER: Unremarkable. No gross lesion or ductal dilatation. GALLBLADDER AND BILE DUCTS: Unremarkable. PANCREAS: Unremarkable. No gross lesion or ductal dilatation. SPLEEN: Unremarkable. ADRENALS: Unremarkable. No mass. KIDNEYS AND URETERS: Unremarkable. No hydronephrosis. No solid mass. VASCULATURE: Unremarkable. No aortic aneurysm. BOWEL: Unremarkable. No obstruction. No gross mural thickening. APPENDIX: Unremarkable. Normal appendix. PERITONEUM: Unremarkable. No free fluid. No free air. LYMPH NODES: Unremarkable. No enlarged lymph nodes. BLADDER: Unremarkable. REPRODUCTIVE: Enlarged uterus, of multiple small adnexal cysts perhaps physiologic. Trace free fluid identified in the pelvis/cul de sac. Similar findings identified on prior study 01/21/2018. BONES: No acute fracture. OTHER FINDINGS: None. IMPRESSION: No significant or acute findings to account for/ related to the clinical presentation. No significant interval change compared to the prior examination(s). Additional benign and/or incidental findings described above.
[2018-03-15] MEDS: cefTRIAXone 1 gm 1 GM/100 ML BAG IVPB SCH (17:45)
[2018-03-15 18:47] LABS: BARBITURATES, UR NEGATIVE (NEGATIVE); BENZODIAZEPINES, UR NEGATIVE (NEGATIVE); OPIATES, UR POSITIVE (NEGATIVE); PHENCYCLIDINE, UR NEGATIVE (NEGATIVE)
[2018-03-15] MEDS ORDERED: Insulin Reg-HIGH-Coverage SC SCH (22:00)
--- NOTE | 2018-03-15 22:08 | CP.PCM.PN ---
Subjective - Date & Time of Evaluation Date of Evaluation: 03/15/18 Time of Evaluation: 22:07 - Subjective Subjective: Patient was seen at bedside as she was feeling nervous. She is in the bed in sitting position.She is nervous. States that she can not take pills by mouth as she feels nauseous. Has no other complaints. Medical record was reviewed. This 43 year old woman was admitted with nausea, vomiting ,epigastric discomfort. Has PMH of DM,HTN,GERD, DKA, gastroparesis , anxiety. 06:50 Nurse calls with FSBS 473 mg% Rx, R 6 Units SC was ordered. f Objective - Vital Signs/Intake and Output Vital Signs (last 24 hours): Temp Pulse Resp BP Pulse Ox 98.6 F 110 H 15 157/99 H 100 03/15/18 15:59 03/15/18 19:49 03/15/18 15:59 03/15/18 19:49 03/15/18 14:40 Intake and Output: 03/15/18 03/16/18 18:59 06:59 Intake Total 0 Balance 0 - Medications Medications: Current Medications Amlodipine Besylate (Norvasc) 5 mg PO DAILY [facility] Clonidine HCl (Catapres Tts1 0.1 Mg/24 Hr) 1 patch TD Q7D@1000 [facility] Last Admin: 03/15/18 19:49 Dose: 1 patch Sodium Chloride (Sodium Chloride 0.45%) 1,000 mls @ 60 mls/hr IV .[id number] [facility] Last Admin: 03/15/18 17:48 Dose: 60 mls/hr Ceftriaxone Sodium (Rocephin 1 Gram Ivpb) 1 gm in 100 mls @ 100 mls/hr IVPB DAILY [facility] PRN Reason: Protocol Last Admin: 03/15/18 17:45 Dose: 100 mls/hr Insulin Human Regular (Humulin R Low) 0 units SC ACHS [facility] PRN Reason: Protocol Metoprolol Tartrate (Lopressor) 25 mg PO BID [facility] Last Admin: 03/15/18 17:48 Dose: 25 mg Morphine Sulfate (Morphine) 1 mg IVP Q3H PRN PRN Reason: Pain, moderate (4-7) Last Admin: 03/15/18 21:19 Dose: 1 mg Ondansetron HCl (Zofran Inj) 4 mg IVP Q6H PRN PRN Reason: Nausea/Vomiting Last Admin: 03/15/18 18:09 Dose: 4 mg Pantoprazole Sodium (Protonix Inj) 40 mg IVP DAILY [facility] Last Admin: 03/15/18 16:16 Dose: 40 mg - Labs Labs: PT 11.8 SECONDS (9.4-12.5) 03/15/18 11:06 INR 1.03 (0.93-1.08) 03/15/18 11:06 APTT 33.1 Seconds (25.1-36.5) 03/15/18 11:06 - Constitutional Appears: Well, No Acute Distress - Head Exam Head Exam: ATRAUMATIC, NORMAL INSPECTION, NORMOCEPHALIC - Eye Exam Eye Exam: Normal appearance - ENT Exam ENT Exam: Normal External Ear Exam - Neck Exam Neck Exam: Normal Inspection - Respiratory Exam Respiratory Exam: NORMAL BREATHING PATTERN - Cardiovascular Exam Cardiovascular Exam: absent: JVD - GI/Abdominal Exam GI & Abdominal Exam: absent: Distended - Rectal Exam Rectal Exam: Deferred - Exam Additional comments: Deferred. - Extremities Exam Extremities Exam: Normal Inspection - Back Exam Back Exam: NORMAL INSPECTION - Neurological Exam Neurological Exam: Alert, Awake - Psychiatric Exam Psychiatric exam: Normal Affect, Normal Mood - Skin Skin Exam: Normal Color Assessment and Plan - Assessment and Plan (Free Text) Assessment: Anxiety. Hyperglycemia. DM. HTN. GERD. Gastroparesis. Anxiety. Plan: Ativan 0.5 mg IV x 1. Regular insulin 6 untis IV x 1. Continue present management.
[2018-03-15] MEDS: Insulin Reg-LOW-Coverage SC SCH (22:39)
[2018-03-16] MEDS: Morphine 2 mg/2 mL syringe IVP PRN ×6 (00:17→21:35)
--- NOTE | 2018-03-16 04:26 | HP ---
DATE OF EXAM: 03/15/2018 HISTORY OF PRESENT ILLNESS: I have known Shanelle for a while. She has been in and out of the hospital few times for gastroparesis. She comes in today with nausea, vomiting, abdominal pain, epigastric discomfort, severe pain similar to the other gastroparesis attacks she has had in the past. She is not doing well at all, nonbloody, and loose bowel movements. PAST MEDICAL HISTORY: She has a past medical history of GERD, gastroparesis, diabetes, hypertension, duodenal ulcers. She is now in lots of abdominal pain with nauseousness and vomiting. She had neuropathy, history of DKA in the past, she had diabetic foot ulcers in the past, gastroparesis, GERD, and anxiety. FAMILY HISTORY: No family history with diabetes. SOCIAL HISTORY: Never smoked. No alcohol. No drugs. ALLERGIES: SHE HAS ALLERGY TO REGLAN. REVIEW OF SYSTEMS: She is a little bit lightheaded. No fevers. No ear problems. No eye problems. No shortness of breath or cough. No visible chest pain, but has questionable diffuse chest pain, abdominal pain epigastric, nausea, vomiting, appetite changes. No problems urinating. No back pain. No skin issues. Little dizzy. Not sweating, not anxious. PHYSICAL EXAMINATION: VITAL SIGNS: She has 98.2 temp, 130 pulse, 19 respiratory rate, 147/109 that came down to 149/89 blood pressure, 100% O2 sat. HEENT: Head is atraumatic, normocephalic. She is uncomfortable, moderate distress. Extraocular muscles are intact. Pupils equal, reactive to light. Throat is dry. NECK: Supple. HEART: Regular rate. Normal S1 and S2. LUNGS: Decreased breath sounds bilaterally, but clear to auscultation. ABDOMEN: Soft. Decreased bowel sounds. Nontender. No guarding, no rebound, no CVA tenderness. EXTREMITIES: No edema. SKIN: For the most part is intact. On the leg and toe, no erythema or ulcers appreciated. NEUROLOGIC: GCS is 15. Cranial nerves II through XII grossly intact. Speech is normal. Alert and oriented x3. LYMPHATICS: Thyroid midline. No palpable lymphadenopathy. LABORATORY DATA: She had a bunch of tests. She had a 4.8 white count, 11.5 hemoglobin, 34.8 hematocrit with 329 platelets. 1.12 INR. Lactate 1. Otherwise blood gases good. Sodium 143, potassium 4.3, BUN 19, creatinine 0.8, GFR is greater than 60, sugar is 155, calcium is 9.8. Total bili is 0.7, AST is 49, ALT is 29, alk phos is 131. Troponin I is 0.02. Total protein is 8.6, albumin is 4.7, globulin 3.9, amylase , lipase is 25. Urine has large bacteria. IMPRESSION AND PLAN: She is here for gastroparesis, abdominal pain, diabetes, urinary tract infection. She was given a shot of Rocephin 1 g IV one time dose. I will put her back on her medications, Zofran, IV fluids, Protonix IV. She will be on morphine, David Theodore DO MTDD
[2018-03-16] MEDS: Insulin Reg-LOW-Coverage SC SCH ×4 (06:50→22:12)
[2018-03-16 07:10] LABS: HEMOGLOBIN 10.3 g/dL (12.0-16.0); MEAN CELL VOLUME 84.1 fl (80.0-105.0); MEAN CORPUSCULAR HEMOGLOBIN 25.9 pg (25.0-35.0); MEAN CORPUSCULAR HGB CONC 30.8 g/dl (31.0-37.0); MEAN PLATELET VOLUME 8.7 fl (7.0-11.0); RBC 3.97 10^6/uL (3.5-6.1); RED CELL DISTRIBUTION WIDTH 15.3 % (11.5-14.5); WHITE BLOOD COUNT 6.8 10^3/ul (4.5-11.0)
[2018-03-16 08:09] LABS: ALB/GLOB RATIO 1.3 (1.1-1.8); ALBUMIN 4.6 g/dL (3.0-4.8); ALT/SGPT 27 U/L (7-56); AST/SGOT 24 U/L (14-36); BLOOD UREA NITROGEN 23 mg/dL (7-21); CALCIUM 9.7 mg/dL (8.4-10.5); GFR AFRICAN-AMERICAN > 60; GFR NON-AFRICAN AMERICAN 55
[2018-03-16] MEDS ORDERED: Insulin Regular 1 UNITS/0.01 ML ML SC STA (08:27)
--- NOTE | 2018-03-16 08:43 | CON ---
DATE: ENDOCRINOLOGY CONSULTATION LOCATION: Room 575. HISTORY OF PRESENT ILLNESS: This is a 43-year-old female with known history of type 1 insulin-dependent diabetes with multiple admissions for recurrent exacerbations of diabetic gastroparesis, and presents once again today with intractable nausea, dyspepsia and vomiting, and is being referred for diabetic evaluation and management. PAST MEDICAL HISTORY: As mentioned above, history of type 1 insulin-dependent diabetes, currently using Levemir at 20 units subcu at bedtime daily as ordered with the sliding scale coverage depending on the oral intake, history of hypertension and dyslipidemia, history of duodenal ulcers and gastritis, history of diabetic retinopathy and polyneuropathy. She has also had previous admissions here with diabetic ketoacidosis and dehydration. She also has underlying peripheral arterial disease and vasculopathy with previous neuropathic foot ulceration as noted. She has a previous bout of left foot osteomyelitis a few years ago. As mentioned above, history of diabetic gastroparesis with recurrent admissions , history of generalized anxiety and has been on anxiety medications as given. FAMILY HISTORY: Positive for diabetes and hypertension. SOCIAL HISTORY: Patient has supportive family. No known substance use. REVIEW OF SYSTEMS: As mentioned above. Admits to generalized body weakness with easy fatigability and tiredness with suboptimal energy level. No chest pains or palpitations. Her energy level has been suboptimal with occasional bouts of shortness of breath also noted on exertion. Her oral intake has been variable with some nausea, dyspepsia and intractable vomiting episodes. No recent alterations of bowel and urinary patterns. PHYSICAL EXAMINATION: GENERAL: This is an average built female, in no apparent distress. VITAL SIGNS: Blood pressure of 140/80, pulse of 72 beats per minute and regular, temperature 98, respirations 20, height is 5 feet 9 inches, weight is 169 pounds. HEENT: Head normocephalic. Eyes anicteric with pink conjunctivae. Funduscopy not possible at this time. Ears, nose and throat otherwise normal. NECK: Supple. Thyroid gland is normal in size. No carotid bruits or cervical adenopathy. CARDIOPULMONARY: Some adynamic precordium. S1, S2 is rapid and regular. LUNGS: Clear to auscultation. ABDOMEN: Flat, soft with positive bowel sounds. EXTREMITIES: No peripheral edema. Pulses are +2 bilaterally. LABORATORY DATA: Her latest glucose levels have ranged from 135 mg/dL to 165 mg/dL. Her latest chemistry shows a BUN of 19, sodium , potassium 4.2, chloride 105, CO2 of 26, glucose 155 and creatinine 0.8. ASSESSMENT: This is a 43-year-old female with uncontrolled and decompensated type 1 insulin-dependent diabetes, presenting here with recurrent bouts of diabetic gastroparesis with intractable nausea, dyspepsia and vomiting episodes. She also has diabetic microvascular complications of retinopathy and polyneuropathy with diabetic microvascular complications of peripheral arterial disease and vasculopathy. PLAN OF MANAGEMENT: As discussed with the patient and staff, we will continue current coverage scale, but we will switch over to a very low dose algorithm using regular insulin because of the n.p.o. status of the patient. We will add basal insulin only when the patient's diet is advanced to at least a soft solid food as indicated. We will continue the IV hydration as given. The hemoglobin A1c will be done to confirm her prior glycemic control and baseline thyroid function studies will be ordered. We will obtain serial chemistries and supplement accordingly as needed. We will follow. Tamara Campo MD
--- NOTE | 2018-03-16 08:44 | CARD ---
APPROVED REPORT EKG Measurement Heart [id number] <Conclusion> Sinus tachycardia Possible Left atrial enlargement
[2018-03-16] MEDS: cefTRIAXone 1 gm 1 GM/100 ML BAG IVPB SCH (09:59)
--- NOTE | 2018-03-16 12:17 | CP.PCM.CON ---
History of Present Illness - History of Present Illness History of Present Illness: Seen and examined at the bedside earlier today this morning, chart review. Request for GI consult is for epigastric pain/intractable nausea. HPI: This is a 43-year-old female with a past medical history of diabetes mellitus type 1, gastroparesis, GERD, with multiple admissions for gastroparesis , she is known to our service. Patient came yesterday with complaints of nausea , vomiting, epigastric discomfort that started since Monday. She has been unable to tolerate any oral intake. She denies any hematemesis. His oral intake she usually just has smoothies, denies any new consumption of foods or going out to eat, her weight fluctuates depending upon her appetite. She denies any diarrhea, melena or bright red blood per rectum. No BM since Monday. In the past she was following up at [facility] for Botox injections. She is now eating followed up by Dr. Saravia at [facility]. She last saw him in September and endorses that there is a plan for endoscopy with Botox. This has not been scheduled she had been sick. This patient did have a gastric emptying study back in April 2017 which did showed delayed gastric emptying consistent with gastroparesis. On admission she had a CAT scan of the abdomen and pelvis without any contrast in this showed no significant acute findings in the bowel, no obstruction gross mural thickening. She does have an enlarged uterus with multiple adnexal cysts and trace free fluid in the pelvis, similar findings seen on prior study on 01/21/2018. Patient denies any fever, chills or shortness of breath. She is currently nothing by mouth. She endorses that her blood sugars at home have been under control except for her current admission. PMH: DM type 1, gastroparesis, HTN, Duodenal ulcers, and GERD FMH: HTN, DM Social Hx: Denies alcohol, tobacco, or illicit drug use PSH: Endoscopy recently found to be negative for any pathology in April 2017 at [facility] had Botox inj. Medication: Reviewed, as per chart Allergies: Metoclopramide ROS: systems reviewed with positive findings see HPI. Past Patient History - Infectious Disease Hx of Infectious Diseases: None - Tetanus Immunizations Tetanus Immunization: Unknown - Past Social History Smoking Status: Never Smoked - CARDIAC Hx Cardiac Disorders: Yes Hx Hypertension: Yes - PULMONARY Hx Respiratory Disorders: No - NEUROLOGICAL Hx Neurological Disorder: Yes (NEUROPATHY) - HEENT Hx HEENT Problems: Yes Other/Comment: wears glasses-nearsighted - RENAL Hx Chronic Kidney Disease: No - ENDOCRINE/METABOLIC Hx Diabetes Mellitus Type 1: Yes (hx DKA) - HEMATOLOGICAL/ONCOLOGICAL Hx Anemia: Yes - INTEGUMENTARY Hx Dermatological Problems: Yes (hx diabetic foot ulcers) - MUSCULOSKELETAL/RHEUMATOLOGICAL Hx Falls: No Hx Osteomyelitis: Yes (left foot 2014) - GASTROINTESTINAL Hx Gastrointestinal Disorders: Yes (gastritis,gastroparesis) Hx Gastroesophageal Reflux: Yes - GENITOURINARY/GYNECOLOGICAL Hx Urinary Tract Infection: Yes - PSYCHIATRIC Hx Psychophysiologic Disorder: Yes Hx Anxiety: Yes - SURGICAL HISTORY Hx Surgeries: Yes Hx Cardiac Catheterization: No Other/Comment: endoscopy with BOTOX - ANESTHESIA Hx Anesthesia: No Hx Anesthesia Reactions: No Hx Malignant Hyperthermia: No Meds Allergies/Adverse Reactions: Allergies Allergy/AdvReac Type Severity Reaction Status Date / Time metoclopramide HCl AdvReac VOMITING Verified 03/15/18 09:47 [From [facility]] - Medications Medications: Current Medications Amlodipine Besylate (Norvasc) 5 mg PO DAILY [facility] Clonidine HCl (Catapres Tts1 0.1 Mg/24 Hr) 1 patch TD Q7D@1000 [facility] Last Admin: 03/15/18 19:49 Dose: 1 patch Sodium Chloride (Sodium Chloride 0.45%) 1,000 mls @ 60 mls/hr IV .[id number] [facility] Last Admin: 03/15/18 17:48 Dose: 60 mls/hr Ceftriaxone Sodium (Rocephin 1 Gram Ivpb) 1 gm in 100 mls @ 100 mls/hr IVPB DAILY [facility] PRN Reason: Protocol Last Admin: 03/16/18 09:59 Dose: 100 mls/hr Insulin Human Regular (Humulin R Low) 0 units SC ACHS [facility] PRN Reason: Protocol Last Admin: 03/16/18 06:50 Dose: 7 units Lorazepam (Ativan) 0.5 mg IVP Q6H PRN; Protocol PRN Reason: Anxiety Last Admin: 03/16/18 09:36 Dose: 0.5 mg Metoprolol Tartrate (Lopressor) 25 mg PO BID [facility] Last Admin: 03/16/18 10:00 Dose: Not Given Morphine Sulfate (Morphine) 2 mg IVP Q3H PRN PRN Reason: Pain, moderate (4-7) Last Admin: 03/16/18 09:35 Dose: 2 mg Ondansetron HCl (Zofran Inj) 4 mg IVP Q6H PRN PRN Reason: Nausea/Vomiting Last Admin: 03/16/18 05:50 Dose: 4 mg Pantoprazole Sodium (Protonix Inj) 40 mg IVP DAILY [facility] Last Admin: 03/16/18 09:59 Dose: 40 mg Physical Exam - Constitutional Appears: No Acute Distress - Head Exam Head Exam: NORMOCEPHALIC - Eye Exam Eye Exam: Normal appearance. absent: Scleral icterus - ENT Exam ENT Exam: Mucous Membranes Moist - Neck Exam Neck exam: Positive for: Normal Inspection - Respiratory Exam Respiratory Exam: Decreased Breath Sounds, NORMAL BREATHING PATTERN. absent: Rales, Wheezes, Respiratory Distress - Cardiovascular Exam Cardiovascular Exam: +S1, +S2 - GI/Abdominal Exam GI & Abdominal Exam: Normal Bowel Sounds, Soft, Tenderness (epigastric). absent : Guarding, Organomegaly, Rebound - Extremities Exam Extremities exam: Positive for: pedal pulses present. Negative for: calf tenderness, pedal edema - Neurological Exam Neurological exam: Alert, Oriented x3 - Skin Skin Exam: Dry, Warm Results - Vital Signs Recent Vital Signs: Last Vital Signs Temp 98.3 F 03/16/18 08:31 Pulse 113 H 03/16/18 08:31 Resp 20 03/16/18 08:31 BP 149/86 03/16/18 08:31 Pulse Ox 100 03/16/18 08:31 - Labs Result Diagrams: 03/16/18 06:45 03/16/18 06:45 Assessment & Plan - Assessment and Plan (Free Text) Assessment: Assessment: Intractable nausea/vomiting, history of gastroparesis Epigastric Pain/Abdominal pain Diabetes mellitus type I History of peptic ulcer disease Constipation UTI Plan: start clear liquid, see if patient can tolerate continue IV F for hydration Continue PPI Monitor electrolytes On insulin coverage Urine culture pending on ceftriaxone Zofran when necessary Pain management may benefit repeat EGD w/ Botox injection, need FU w/her Dr. Oleary at [facility] Thank you for this consult and for allowing us to participate in your patient's care, further recommendations based upon clinical course. Seen and discussed with Dr. Farmer.
--- NOTE | 2018-03-16 12:52 | PN ---
DATE: 03/16/2018SUBJECTIVE: I saw her this morning, sitting up in bed. She is throwing up right in front of me. She is anxious. She is nervous. She has abdominal pain. Usually, it takes about 24 hours for her to get through this, but this is lasting and seems to be getting a little bit worse and her blood sugar is now greater than 500. I will change her to an inpatient now. I called in Endocrinology. I am waiting for GI to say jerome. I called them yesterday. She is very anxious, nervous, upset, abdominal pain, throwing up. PHYSICAL EXAMINATION: VITAL SIGNS: She has a 98.3 temp, 113 pulse, 149/86 blood pressure, 20 respiratory rate and 100% O2 sat on room air. HEENT: Head is atraumatic, normocephalic. HEART: Regular rate. LUNGS: Decreased breath sounds. ABDOMEN: Mildly distended. Tender all over. Decreased bowel sounds. EXTREMITIES: No edema. MEDICATIONS: I added Ativan. She is on a Catapres patch because she cannot keep anything down. She has Lopressor, but she has been throwing it up. She is on morphine now 2 every 3. She has Norvasc, but she is throwing it up, that is why she is on the Catapres patch. Protonix IV, Rocephin IV for urinary tract infection and Zofran IV. LABORATORY DATA: She has a 6.8 white count, 10.3 hemoglobin, 33.4 hematocrit with 328 platelets. 143 sodium, potassium is 5.1, BUN is 22, creatinine 1.1, GFR is 55. Blood sugars were 308, now it is 541, I will give her 20 units subcu or regular. Total bili is 0.6, AST is 24, ALT is 27, alkaline phosphatase is 118, total protein is 8.1. Urine with large bacteria. She had a toxicology, which showed positive opiates. ASSESSMENT AND PLAN: I am waiting for GI and Endocrinology to consult. Continue with aggressive treatment and care. She is still n.p.o. because she is throwing up. Hopefully, this will slow down. David Theodore DO
[2018-03-16] MEDS: Insulin Regular 1 UNITS/0.01 ML ML SC SCH (16:32)
[2018-03-16] MEDS: Sodium Chloride 0.45% 1,000 ML IV SCH ×2 (18:50→23:29)
--- NOTE | 2018-03-16 21:23 | PN ---
DATE: 03/16/2018 ENDOCRINOLOGY FOLLOWUP NOTE LOCATION: In room 575. SUBJECTIVE: This is a 43-year-old female with recent uncontrolled type 1 insulin-dependent diabetes, who presented here with intractable vomiting episodes and acute exacerbation of diabetic gastroparesis and is being followed closely for metabolic management. Her glycemic levels are fluctuating as expected and has now advanced to liquid diet as noted. Her glucose levels are ranged from 308 to 473 mg/dL. Her latest chemistries today showed a BUN of 23. Sodium 143, potassium 5.1, chloride 105, CO2 of 11. Glucose is 541. Creatinine is 1.1. ASSESSMENT: This is a 43-year-old female with supervening diabetic ketoacidosis, presenting here with mild hyperglycemic acceleration with concomitant intractable vomiting episodes from acute exacerbation of diabetic gastroparesis and is now being followed closely with the metabolic management. PLAN OF MANAGEMENT: We will increase the IV hydration to 125 mL/hour because of the supervening diabetic ketoacidosis as noted. We will titrate incrementally as indicated to optimize metabolic control . We will obtain serial chemistries and supplement accordingly as needed. We will have to switch over to a more physiologic basal and bolus insulin drug combination to obviate hypoglycemia and given. We will start her now on a combination of Humulin regular insulin given as 8 units subcu t.i.d. before meals to start at dinnertime today as ordered. We will also add basal insulin with Levemir to be given as 20 units subcu at bedtime daily to start tonight. We will titrate incrementally as indicated to optimize metabolic control. We will follow and advise accordingly. Tamara Campo MD
[2018-03-16] MEDS ORDERED: Insulin Detemir 100 units/ml Vial (Levemir) SC SCH (22:00)
[2018-03-17] MEDS: Sodium Chloride 0.45% 1,000 ML IV SCH ×4 (05:31→22:27)
[2018-03-17] MEDS: Insulin Regular 1 UNITS/0.01 ML ML SC SCH ×2 (06:36→17:02)
[2018-03-17] MEDS: Insulin Reg-LOW-Coverage SC SCH ×4 (06:37→22:20)
[2018-03-17 07:30] LABS: HEMOGLOBIN 10.3 g/dL (12.0-16.0); MEAN CELL VOLUME 82.4 fl (80.0-105.0); MEAN CORPUSCULAR HEMOGLOBIN 25.9 pg (25.0-35.0); MEAN CORPUSCULAR HGB CONC 31.4 g/dl (31.0-37.0); MEAN PLATELET VOLUME 8.9 fl (7.0-11.0); RBC 3.98 10^6/uL (3.5-6.1); RED CELL DISTRIBUTION WIDTH 15.4 % (11.5-14.5); WHITE BLOOD COUNT 8.1 10^3/ul (4.5-11.0)
[2018-03-17 08:15] LABS: ALB/GLOB RATIO 1.2 (1.1-1.8); ALBUMIN 4.3 g/dL (3.0-4.8); ALT/SGPT 29 U/L (7-56); AST/SGOT 28 U/L (14-36); BLOOD UREA NITROGEN 24 mg/dL (7-21); CALCIUM 9.3 mg/dL (8.4-10.5); GFR AFRICAN-AMERICAN > 60; GFR NON-AFRICAN AMERICAN > 60
[2018-03-17] MEDS: cefTRIAXone 1 gm 1 GM/100 ML BAG IVPB SCH (10:47)
[2018-03-17] MEDS: Morphine 2 mg/2 mL syringe IVP PRN ×3 (10:48→22:32)
[2018-03-17] MEDS ORDERED: Insulin Regular 1 UNITS/0.01 ML ML SC SCH (11:41)
--- NOTE | 2018-03-17 15:13 | CP.PCM.PN ---
Subjective - Date & Time of Evaluation Date of Evaluation: 03/17/18 Time of Evaluation: 08:40 - Subjective Subjective: Seen and examined at the bedside earlier today, chart reviewed. No acute overnight events reported. Patient reports that nausea and pain slightly better , patient did have pain medication this morning. Occasional nausea no reports of vomiting. Denies any bowel movement. He tolerated some liquid last night. Currently breakfast tray sitting at the bedside. Patient does not want diet to be advanced yet. Objective - Vital Signs/Intake and Output Vital Signs (last 24 hours): Temp Pulse Resp BP Pulse Ox 98.0 F 100 H 18 139/80 100 03/17/18 06:00 03/17/18 10:47 03/17/18 06:00 03/17/18 10:47 03/17/18 06:00 Intake and Output: 03/17/18 03/17/18 06:59 18:59 Intake Total 1740 360 Balance 1740 360 - Medications Medications: Current Medications Amlodipine Besylate (Norvasc) 5 mg PO DAILY [facility] Last Admin: 03/17/18 10:47 Dose: 5 mg Clonidine HCl (Catapres Tts1 0.1 Mg/24 Hr) 1 patch TD Q7D@1000 [facility] Last Admin: 03/15/18 19:49 Dose: 1 patch Ceftriaxone Sodium (Rocephin 1 Gram Ivpb) 1 gm in 100 mls @ 100 mls/hr IVPB DAILY [facility] PRN Reason: Protocol Last Admin: 03/17/18 10:47 Dose: 100 mls/hr Sodium Chloride (Sodium Chloride 0.45%) 1,000 mls @ 125 mls/hr IV .Q8H [facility] Last Admin: 03/17/18 10:58 Dose: 125 mls/hr Insulin Detemir (Levemir) 30 unit SC HS [facility] Insulin Human Regular (Humulin R Low) 0 units SC ACHS [facility] PRN Reason: Protocol Last Admin: 03/17/18 14:20 Dose: 3 units Insulin Human Regular (Humulin R) 14 units SC AC [facility] Lorazepam (Ativan) 0.5 mg IVP Q6H PRN; Protocol PRN Reason: Anxiety Last Admin: 03/17/18 06:43 Dose: 0.5 mg Metoprolol Tartrate (Lopressor) 25 mg PO BID [facility] Last Admin: 03/17/18 10:45 Dose: 25 mg Morphine Sulfate (Morphine) 2 mg IVP Q3H PRN PRN Reason: Pain, moderate (4-7) Last Admin: 03/17/18 14:25 Dose: 2 mg Ondansetron HCl (Zofran Inj) 4 mg IVP Q6H PRN PRN Reason: Nausea/Vomiting Last Admin: 03/16/18 05:50 Dose: 4 mg Pantoprazole Sodium (Protonix Inj) 40 mg IVP DAILY [facility] Last Admin: 03/17/18 10:48 Dose: 40 mg - Labs Labs: 03/17/18 06:40 03/17/18 06:40 PT 11.8 SECONDS (9.4-12.5) 03/15/18 11:06 INR 1.03 (0.93-1.08) 03/15/18 11:06 APTT 33.1 Seconds (25.1-36.5) 03/15/18 11:06 - Constitutional Appears: No Acute Distress - Eye Exam Eye Exam: Normal appearance. absent: Scleral icterus - ENT Exam ENT Exam: Mucous Membranes Moist - Neck Exam Neck Exam: Normal Inspection - Respiratory Exam Respiratory Exam: NORMAL BREATHING PATTERN. absent: Respiratory Distress - Cardiovascular Exam Cardiovascular Exam: +S1, +S2 - GI/Abdominal Exam GI & Abdominal Exam: Soft, Normal Bowel Sounds. absent: Guarding, Tenderness (s /p apin medication), Organomegaly, Rebound - Extremities Exam Extremities Exam: absent: Calf Tenderness, Pedal Edema - Neurological Exam Neurological Exam: Alert, Awake, Oriented x3 - Skin Skin Exam: Dry, Warm Assessment and Plan - Assessment and Plan (Free Text) Assessment: Assessment: Intractable nausea/vomiting, history of gastroparesis Epigastric Pain/Abdominal pain Diabetes mellitus type I History of peptic ulcer disease Constipation UTI Plan: continue clear liquid, advance as tolerated continue IV F for hydration Continue PPI Monitor electrolytes On insulin coverage on ceftriaxone Zofran when necessary Pain management may benefit repeat EGD w/ Botox injection, her GI MD Dr. Oleary at [place] Seen discussed with Dr. Olivas who is covering Dr. Farmer.
--- NOTE | 2018-03-17 16:42 | PN ---
DATE: 03/17/2018 SUBJECTIVE: I saw Shanelle in her room. She is standing and walking a little bit. She is also getting some liquid. She is doing a little bit better with that. The nauseous is much less. Belly pain is still there. She has not moved her bowels in a few days, but does not feel uncomfortable and she is starting to IV fluids at 125 an hour; Ativan; Catapres; insulin, I increased her regular insulin to 12 subcu before meals since her blood sugars are still in the high 300s; Levemir 20 at nighttime; metoprolol; morphine; amlodipine; pantoprazole; Rocephin; and Zofran. PHYSICAL EXAMINATION VITAL SIGNS: She has a 98 temperature, 100 pulse, 139/80 blood pressure, 18 respiratory rate, 100% O2 sat on room air. HEENT: Head is atraumatic, normocephalic. HEART: Regular rate. LUNGS: Decreased breath sounds, but clear. ABDOMEN: Soft. Decreased bowel sounds. Mildly distended with no guarding. Nontender. EXTREMITIES: No edema. LABORATORY DATA: She has an 8.1 white count, 10.3 hemoglobin, 32.8 hematocrit with a 366 platelets. She has a 143 sodium, potassium is 4.6, BUN is 24, creatinine is 1, GFR is greater than 60, last blood sugar was 438 and before that was 374. I increased her before meals insulin to 12 She has a 9.3 calcium, 0.4 total bilirubin, AST is 28, ALT is 29, alkaline phosphatase 116. ASSESSMENT AND PLAN: We will continue aggressive treatment and care as per Endocrinology and GI. Check her labs tomorrow as I increased her diet. She does well. She is close to being discharged and hopefully in next 24-48 hours, she will improve. She had diabetes ketoacidosis, urinary tract infection, diabetes, gastroparesis, and abdominal pain. David Theodore DO MTDD
--- NOTE | 2018-03-17 19:55 | PN ---
DATE: 03/17/2018 LOCATION: In room 575. SUBJECTIVE: This is a 43-year-old female with recent uncontrolled type I insulin-dependent diabetes, presented here with intractable vomiting episodes related to underlying acute exacerbation of diabetic gastroparesis and is being followed closely now for metabolic management. Her glycemic levels are fluctuating as noted and her glucose values today have ranged from 118 to 221 and 374 and 331 mg/dL. Her latest chemistry shows a BUN of 24, sodium 143, potassium 4.6, chloride 109, CO2 of 17, and creatinine is 1.2. So, at this time, we will continue the vigorous IV hydration as ordered with normal saline increased to 125 mL per hour as ordered to replenish the lost fluids and electrolytes to be increased, osmotic diuresis thereof. We will also modify her basal and bolus insulin regimen and increase the Levemir to 20 units subcu at bedtime daily to start it tonight. We will also modify and increase the NovoLog coverage scale to obviate hypoglycemia and detailed orders have been given. We will obtain serial chemistries and supplement accordingly as needed.. We will consider the addition of rapid-acting NovoLog as indicated. We will obtain serial chemistries and supplement accordingly as needed. We will follow this. Tamara Campo MD
[2018-03-17] MEDS: Insulin Detemir 100 units/ml Vial (Levemir) SC SCH (22:47)
[2018-03-18 07:48] LABS: HEMOGLOBIN 9.9 g/dL (12.0-16.0); MEAN CELL VOLUME 81.3 fl (80.0-105.0); MEAN CORPUSCULAR HEMOGLOBIN 26.1 pg (25.0-35.0); MEAN PLATELET VOLUME 8.7 fl (7.0-11.0); RBC 3.8 10^6/uL (3.5-6.1); RED CELL DISTRIBUTION WIDTH 15.4 % (11.5-14.5); WHITE BLOOD COUNT 6.6 10^3/ul (4.5-11.0)
[2018-03-18 07:55] LABS: ALB/GLOB RATIO 1.2 (1.1-1.8); ALBUMIN 3.7 g/dL (3.0-4.8); ALT/SGPT 32 U/L (7-56); AST/SGOT 26 U/L (14-36); BLOOD UREA NITROGEN 14 mg/dL (7-21); CALCIUM 8.8 mg/dL (8.4-10.5); GFR AFRICAN-AMERICAN > 60; GFR NON-AFRICAN AMERICAN > 60
[2018-03-18] MEDS: cefTRIAXone 1 gm 1 GM/100 ML BAG IVPB SCH (09:04)
[2018-03-18] MEDS: Insulin Reg-LOW-Coverage SC SCH ×4 (09:07→22:00)
[2018-03-18] MEDS: Insulin Regular 1 UNITS/0.01 ML ML SC SCH ×3 (09:08→17:25)
[2018-03-18] MEDS: Morphine 2 mg/2 mL syringe IVP PRN (09:09)
[2018-03-18] MEDS: Sodium Chloride 0.45% 1,000 ML IV SCH ×3 (09:09→17:30)
[2018-03-18] MEDS ORDERED: Morphine 2 mg/2 mL syringe IVP PRN (11:45)
--- NOTE | 2018-03-18 12:21 | PN ---
DATE: 03/18/2018 ENDOCRINOLOGY FOLLOWUP NOTE LOCATION: Room# 575. This is a 43-year-old female with acute exacerbation of diabetic gastroparesis, presented here with intractable vomiting episodes and is now slowly improving both clinically and metabolically as noted. Her glucose levels are fluctuating but improved and the latest glucose levels today have ranged from 108 to 171 and . Her latest chemistry showed a BUN of 14, sodium 139, potassium 4.2, chloride 106, CO2 of 24, glucose 204 and creatinine 0.5. So at this time to allow for dose equilibration, continue on basal and low-dose insulin regimen as ordered. She is currently on regular insulin with Levemir 7 units subcu t.i.d. before meals as ordered. We will also continue the Levemir given as 30 units subcu at bedtime daily as needed. We will titrate incrementally and continue to optimize metabolic control. We will also try to advance her diet to a soft mechanical heart-healthy moderate consistency diet as ordered. We will titrate incrementally as indicated to optimize metabolic control. We will also continue the low-dose correction scale using regular insulin as given. We will follow and advise accordingly. Tamara Campo MD
--- NOTE | 2018-03-18 14:46 | PN ---
DATE: 03/18/2018 This visit is for Dr Gomez, Dr. Olivas covering. SUBJECTIVE: The patient is lying in bed. Her diet was advanced this morning. She had some mild nausea earlier, but no further vomiting. She denies any abdominal pain, melena or rectal bleeding. PHYSICAL EXAMINATION VITAL SIGNS: Reveal temperature of 98, blood pressure 139/80, heart rate of 100. HEENT: Reveals sclerae to be white. Conjunctivae pale. NECK: Supple. CHEST: Revealed lungs to be clear. HEART: Reveals a regular rate and rhythm. ABDOMEN: Soft, nontender. No mass. EXTREMITIES: Show no edema. LABORATORY DATA: Revealed white blood cell count 6.6, hemoglobin 9.9, platelet count 320,000. Chemistries reveal normal electrolytes except for blood sugar of 171. IMPRESSION: A 43-year-old female with longstanding insulin-dependent diabetes mellitus with a history of gastroparesis, admitted to the hospital with intractable nausea, vomiting and urinary tract infection. Her vomiting appears to have resolved. She cannot tolerate IV Reglan. RECOMMENDATIONS: Continue close followup. If the patient continues to salivate solid food, she may be able to be discharged home in the morning. Сергей Olivas MD
[2018-03-18 15:36] VITALS: O2SAT 99
--- NOTE | 2018-03-18 17:12 | PN ---
DATE: 03/18/2018 SUBJECTIVE: She is eating her regular food. She had a Chicken Parmesan for lunch and that she is feeling very nauseous and feels pressure in her middle of her chest just like esophagus is getting slow motility as she drinks water. She is on Ativan, Catapres, insulin Levemir, Lopressor, morphine and I will drop the morphine to 1 mg as the pain is not that bad. She still is very nauseous, so I will have to get some Zofran, otherwise she feels like she is going to throw up; Protonix, Rocephin, IV fluids. PHYSICAL EXAMINATION VITAL SIGNS: She has a 98 temperature, 79 pulse, 145/73 blood pressure, 20 respiratory rate, 100% O2 sat on room air. HEENT: Head is atraumatic, normocephalic. HEART: Regular rate. LUNGS: Decreased breath sounds. ABDOMEN: Soft. Decreased bowel sounds. Nontender. EXTREMITIES: No edema. I would have discharged her today it was not for this nauseousness right now after eating lunch. LABORATORY DATA: She has a 6.6 white count, 9.9 hemoglobin, 30.9 hematocrit with a 320 platelets. Sodium 139, potassium 4.2, BUN is 40, creatinine is 0.8, GFR is greater than 60, sugar of 258, then they were 204, then they were 171,her blood sugar is definitely improving. Total bilirubin is 0.3, AST is 26, ALT is 32, alkaline phosphatase 92, total protein 6.9. ASSESSMENT AND PLAN: She is acutely nauseous right now after eating lunch. We will get her some Zofran if gastroparesis is still present. I am hoping to discharge in the next 24 hours once she can eat certainly without feelings so nauseous. The progress note on Shanelle Mancini who has got gastroparesis, severe abdominal pain, intractable nausea and vomiting which is trying to improve. David Theodore DO
[2018-03-19] MEDS: Insulin Detemir 100 units/ml Vial (Levemir) SC SCH (00:31)
[2018-03-19] MEDS: Sodium Chloride 0.45% 1,000 ML IV SCH (00:33)
[2018-03-19 02:56] VITALS: RESP 20
[2018-03-19] MEDS: Insulin Regular 1 UNITS/0.01 ML ML SC SCH ×2 (07:36→12:00)
[2018-03-19] MEDS: Insulin Reg-LOW-Coverage SC SCH ×2 (07:36→12:00)
[2018-03-19 08:09] LABS: HEMOGLOBIN 9.8 g/dL (12.0-16.0); MEAN CELL VOLUME 79.7 fl (80.0-105.0); MEAN CORPUSCULAR HEMOGLOBIN 25.8 pg (25.0-35.0); MEAN CORPUSCULAR HGB CONC 32.3 g/dl (31.0-37.0); MEAN PLATELET VOLUME 8.6 fl (7.0-11.0); RBC 3.8 10^6/uL (3.5-6.1); RED CELL DISTRIBUTION WIDTH 14.8 % (11.5-14.5); WHITE BLOOD COUNT 5.2 10^3/ul (4.5-11.0)
[2018-03-19 08:26] LABS: ALB/GLOB RATIO 1.1 (1.1-1.8); ALBUMIN 3.3 g/dL (3.0-4.8); ALT/SGPT 32 U/L (7-56); AST/SGOT 31 U/L (14-36); BLOOD UREA NITROGEN 10 mg/dL (7-21); GFR AFRICAN-AMERICAN > 60; GFR NON-AFRICAN AMERICAN > 60
[2018-03-19 08:32] VITALS: TEMP 98.4
[2018-03-19] MEDS ORDERED: Morphine 4 mg/ml ISec IVP PRN (08:33)
--- NOTE | 2018-03-19 09:28 | PN ---
DATE: 03/17/2018 COVERING FOR: Bev Gomez MD. This is an addendum to a progress note performed by Samantha Webb APN. I have personally examined this patient. I agree with Samantha Webb' assessment and recommendation. The patient feels better. She feels less nauseous and has not had any further vomiting. The patient has history of gastroparesis. SHE IS INTOLERANT TO REGLAN. Recommendations are to advance diet as tolerated. Сергей Olivas MD
[2018-03-19] MEDS: cefTRIAXone 1 gm 1 GM/100 ML BAG IVPB SCH (10:43)
[2018-03-19 10:44] VITALS: BP 122/80; PULSE 86
[2018-03-19] MEDS ORDERED: POLYETHYLENE GLYCOL 3350 17 GM/Dose PACKET PO ONE (10:53)
--- NOTE | 2018-03-19 17:26 | CP.PCM.PN ---
Subjective - Date & Time of Evaluation Date of Evaluation: 03/19/18 Time of Evaluation: 11:00 - Subjective Subjective: Seen and examined at the bedside earlier this morning, chart review. No acute overnight events reported. Patient reports resolution of nausea, vomiting, and abdominal pain. Last pain medication was last night. Tolerated solid foods for breakfast this morning. No new complaints. Feeling better, even smiling. Did Report no bowel movement since last week, but patient endorses she hasn't been eating. Objective - Vital Signs/Intake and Output Vital Signs (last 24 hours): Temp Pulse Resp BP Pulse Ox 98.4 F 86 20 122/80 99 03/19/18 08:31 03/19/18 10:42 03/19/18 08:31 03/19/18 10:42 03/19/18 08:31 Intake and Output: 03/19/18 03/19/18 06:59 18:59 Intake Total 2260 Balance 2260 - Labs Labs: 03/19/18 07:30 03/19/18 07:30 PT 11.8 SECONDS (9.4-12.5) 03/15/18 11:06 INR 1.03 (0.93-1.08) 03/15/18 11:06 APTT 33.1 Seconds (25.1-36.5) 03/15/18 11:06 - Constitutional Appears: No Acute Distress - Head Exam Head Exam: NORMOCEPHALIC - Eye Exam Eye Exam: Normal appearance. absent: Scleral icterus - ENT Exam ENT Exam: Mucous Membranes Moist - Respiratory Exam Respiratory Exam: Clear to Ausculation Bilateral, NORMAL BREATHING PATTERN. absent: Respiratory Distress - Cardiovascular Exam Cardiovascular Exam: +S1, +S2 - GI/Abdominal Exam GI & Abdominal Exam: Soft, Normal Bowel Sounds. absent: Guarding, Tenderness, Rebound - Extremities Exam Extremities Exam: absent: Calf Tenderness, Pedal Edema - Neurological Exam Neurological Exam: Alert, Awake, Oriented x3 - Skin Skin Exam: Dry, Warm Assessment and Plan - Assessment and Plan (Free Text) Assessment: Assessment: Resolved Intractable nausea/vomiting History of gastroparesis Resolved Epigastric Pain/Abdominal pain Diabetes mellitus type I History of peptic ulcer disease Constipation UTI Plan: on mod carb diet Will give a dose of MiraLAX. Patient is planned for discharge today Discussed with patient follow-up with Dr. Oleary at [facility] for eval for endoscopy w/ Botox injection. Seen & discussed with Dr. Farmer.
[2018-03-19 17:34] LABS: BETA-HYDROXYBUTYRIC ACID 180 mcg/mL
--- NOTE | 2018-03-19 17:55 | PN ---
DATE: 03/19/2018 ENDOCRINOLOGY FOLLOWUP NOTE LOCATION: Room 573. SUBJECTIVE: This is a 43-year-old female with recent uncontrolled type 1 insulin-dependent diabetes, now being followed closely for metabolic management. Her glycemic levels are fluctuating, but much improved at this time and the glucose levels have ranged from 102 to 112 mg/dL. It was 278 at bedtime last night. Her latest chemistries today showed a BUN of 10, sodium 141, potassium 3.9, chloride 105, CO2 of 30, glucose 103, and creatinine 0.8. So, at this time, we will continue the same basal and bolus insulin regimen as ordered to allow for dose equilibration and keep her on the Levemir given as 30 units subcutaneously at bedtime daily as given. We will continue the Humulin regular insulin given as 14 units subcutaneously t.i.d. before meals as ordered. We will titrate incrementally as indicated to optimize metabolic control. We will obtain serial chemistries and supplement accordingly as needed. We will follow. Tamara Campo MD
--- NOTE | 2018-03-20 06:13 | DS ---
She overall did well last night. No more abdominal pain. She kept the dinner down. She almost threw up lunch yesterday. She is breakfast and will be discharged. I wrote prescriptions for her. She will be followed up in the office this week. PHYSICAL EXAMINATION: VITAL SIGNS: She has a 98.4 temperature, 87 pulse, 122/81 blood pressure, 20 respiratory rate, 99% O2 sat on room air. HEENT: Head is atraumatic, normocephalic. HEART: Regular rate. LUNGS: Clear to auscultation. ABDOMEN: Soft. Positive bowel sounds, nontender. EXTREMITIES: No edema. LABORATORY DATA: She has a 5.2 white count, 9.8 hemoglobin, 30.3 hematocrit, and 320 platelet. 141 sodium, potassium 3.9, BUN 10, creatinine 0.8, GFR is greater than 60, blood sugar is 103, calcium is 9. Total bili is 0.4, AST is 31, ALT is 32, alk phos 75, total protein is 6.4. ASSESSMENT AND PLAN: She had diabetic ketoacidosis, gastroparesis, abdominal pain, urinary tract infection. She is quite well overall; hopefully, she will continue to do well. I wrote prescriptions for her. She will be seen in the office in a week. David Theodore DO MTDD
== END 2018-03-19 13:02 | disposition home or self-care (01) | DRG 18 ==
LOC: ED 09:37 → ERH 13:44 → 5RSO 15:18 → OBSVTOIN 03-16 08:29 → 5RSO 03-18 16:05
PROVIDERS: ADMIT Family Medicine; ATTEND Family Medicine
DX: E10.43 Type 1 diabetes mellitus with diabetic autonomic (poly)neuropathy (principal); K31.84 Gastroparesis; N39.0 Urinary tract infection, site not specified; E10.10 Type 1 diabetes mellitus with ketoacidosis without coma; E10.40 Type 1 diabetes mellitus with diabetic neuropathy, unspecified; E10.319 Type 1 diabetes mellitus with unspecified diabetic retinopathy without macular edema; E10.51 Type 1 diabetes mellitus with diabetic peripheral angiopathy without gangrene; I10 Essential (primary) hypertension; F41.1 Generalized anxiety disorder; K59.00 Constipation, unspecified; K21.9 Gastro-esophageal reflux disease without esophagitis; K29.70 Gastritis, unspecified, without bleeding; E78.5 Hyperlipidemia, unspecified; Z87.11 Personal history of peptic ulcer disease

== ENCOUNTER 2018-04-29 10:36 | Observation (INO) | payer MEDICAID ==
--- NOTE | 2018-04-29 10:48 | ED PDOC ---
Arrival/HPI - General Historian: Patient - History of Present Illness Time/Duration: 24 hours Symptom Onset: Gradual Symptom Course: Unchanged <Delroy Hayes - Last Filed: 04/29/18 13:20> <Mir Crowder - Last Filed: 04/29/18 15:20> - General Chief Complaint: GI Problem Time Seen by Provider: 04/29/18 10:38 - History of Present Illness Narrative History of Present Illness (Text): 43 year old female presenting with abdominal pain along with nausea and vomiting for the past day. Patient states she took her blood sugar level in the Am at home and was 177 and also took 5 units of insulin. Patient states she is in a lot of pain and is asking for pain medications. Patient denies chest pain, shortness of breath, fever, chills, or any other complaints at this time. 04/29/18 11:22 (Delroy Hayes) Past Medical History - Provider Review Nursing Documentation Reviewed: Yes - Past History Past History: No Previous - Infectious Disease Hx of Infectious Diseases: None - Tetanus Immunization Tetanus Immunization: Unknown - Past Medical History Past Medical History: No Previous - Cardiac Hx Cardiac Disorders: Yes Hx Hypertension: Yes - Pulmonary Hx Respiratory Disorders: No - Neurological Hx Neurological Disorder: Yes (NEUROPATHY) - HEENT Hx HEENT Disorder: Yes Other/Comment: wears glasses-nearsighted - Renal Hx Renal Disorder: No - Endocrine/Metabolic Hx Diabetes Mellitus Type 1: Yes (hx DKA) - Hematological/Oncological Hx Anemia: Yes - Integumentary Hx Dermatological Disorder: Yes (hx diabetic foot ulcers) - Musculoskeletal/Rheumatological Hx Falls: No Hx Osteomyelitis: Yes (left foot 2014) - Gastrointestinal Hx Gastrointestinal Disorders: Yes (gastritis,gastroparesis) Hx Gastroesophageal Reflux: Yes - Genitourinary/Gynecological Hx Urinary Tract Infection: Yes - Psychiatric Hx Psychophysiologic Disorder: Yes Hx Anxiety: Yes Hx Substance Use: No - Past Surgical History Past Surgical History: No Previous - Surgical History Hx Cardiac Catheterization: No Other/Comment: endoscopy with BOTOX - Anesthesia Hx Anesthesia: No Hx Anesthesia Reactions: No Hx Malignant Hyperthermia: No - Suicidal Assessment Feels Threatened In Home Enviroment: No <Delroy Hayes - Last Filed: 04/29/18 13:20> Family/Social History - Physician Review Nursing Documentation Reviewed: Yes Family/Social History: No Known Family HX Smoking Status: Never Smoked Hx Alcohol Use: No Hx Substance Use: No Hx Substance Use Treatment: No <Delroy Hayes - Last Filed: 04/29/18 13:20> Allergies/Home Meds <Delroy Hayes - Last Filed: 04/29/18 13:20> <Mir Crowder - Last Filed: 04/29/18 15:20> Allergies/Adverse Reactions: Allergies metoclopramide HCl [From Reglan] Adverse Reaction (Verified 03/15/18 09:47) VOMITING Review of Systems - Review of Systems Constitutional: Normal. absent: Fatigue, Fevers, Night Sweats Eyes: Normal. absent: Vision Changes ENT: Normal Respiratory: Normal. absent: Cough, Sputum, Wheezing Cardiovascular: Normal. absent: Chest Pain, Palpitations Gastrointestinal: Abdominal Pain, Nausea, Vomiting. absent: Constipation, Diarrhea Genitourinary Female: Normal. absent: Dysuria, Hematuria Musculoskeletal: Normal Skin: Normal Neurological: Normal. absent: Headache, Dizziness Endocrine: Normal. absent: Polyuria, Polydipsia Hemo/Lymphatic: Normal Psychiatric: Normal <Delroy Hayes - Last Filed: 04/29/18 13:20> Physical Exam Vital Signs Reviewed: Yes Temperature: Afebrile Blood Pressure: Hypertensive Pulse: Tachycardic Respiratory Rate: Normal Appearance: Positive for: Uncomfortable, Other (fidgety) Pain Distress: Moderate Mental Status: Positive for: Alert and Oriented X 3 - Systems Exam Head: Present: Atraumatic, Normocephalic Pupils: Present: PERRL Extroacular Muscles: Present: EOMI Conjunctiva: Present: Normal Mouth: Present: Moist Mucous Membranes Neck: Present: Normal Range of Motion Respiratory/Chest: Present: Clear to Auscultation, Good Air Exchange. No: Respiratory Distress, Wheezes Cardiovascular: Present: Normal S1, S2, Tachycardic Abdomen: Present: Tenderness. No: Distention, Rebound, Guarding Upper Extremity: No: Edema Lower Extremity: No: Edema Neurological: Present: GCS=15, CN II-XII Intact Skin: Present: Warm, Dry Psychiatric: Present: Alert, Oriented x 3 <Delroy Hayes - Last Filed: 04/29/18 13:20> Vital Signs Temp Pulse Resp BP Pulse Ox 04/29/18 14:40 110 H 18 177/96 H 04/29/18 14:13 110 H 17 177/96 H 100 04/29/18 10:40 98 F 117 H 20 175/94 H 98 Medical Decision Making - Lab Interpretations I have reviewed the lab results: Yes <Delroy Hayes - Last Filed: 04/29/18 13:20> - RAD Interpretation [employer] Supervisor: Radiologist - EKG Interpretation Interpreted by ED Physician: Yes Type: 12 lead EKG <Mir Crowder - Last Filed: 04/29/18 15:20> ED Course and Treatment: Plan -EKG -CBC, CMP -zofran, fluids -reasses 04/29/18 11:28 04/29/18 11:29 (Delroy Hayes) 04/29/18 In agreement with resident note, which includes further HPI details. Patient was seen and evaluated with resident, came up with plan and treatment together. Patient's prior history reviewed. With permission of patient, also reviewed history and physical exam with mother. Patient has prior history of diabetes as well as gastroparesis, also multiple episodes of hyperglycemia with associated DKA. Currently she DENIES chest pain or shortness of breath, states she has upper abdominal discomfort with vomiting. Patient currently does not smell of acetone. Chest X-Ray with no free air noted, no ptx. She has no focal rebound or guarding but diffuse abdominal pain with nausea/vomiting. Patient's prior visits with two recent ct abdomen/pelvis from this year reviewed. She has no colicky pain. I discussed IN LENGTH risks/side effects of narcotic pain medication with mother and patient. She states pain similar to past episodes and NSAIDS have not been effective. With agreement and understanding of risks one mg of Dialudid ordered with improved but persistently severe abdominal pain. Patient at this time with no gross rectal bleeding, nausea/vomiting improved but persistent despite iv fluids and antiemetics. ABG reviewed, ph 7.32, cannot exclude possible early component of DKA. No hypoxia or chest pain or calf pain. She has prior history of tachycardia on review of past records. She denies exertional chest pain or shortness of breath. IV fluids ordered, initial labs reviewed with PMD Dr. Rene Theodore. Will admit to telemetry bed based on risk of DKA, tachycardia. Will continue iv fluids, serial abdominal exams. Treatment plan reviewed with patient and family. 04/29/18 15:12 (Mir Crowder) - Lab Interpretations Lab Results: 04/29/18 11:39 04/29/18 11:39 Lab Results 04/29/18 13:45: Alcohol, Quantitative < 10 04/29/18 11:39: PT 11.1, INR 0.97, APTT 27.4 04/29/18 11:39: Sodium 142, Potassium 4.3, Chloride 103, Carbon Dioxide 25, Anion Gap 18, BUN 19, Creatinine 0.8, Est GFR ( Amer) > 60, Est GFR (Non- Af Amer) > 60, Random Glucose 284 H, Calcium 10.2, Total Bilirubin 1.1, AST 38 H D, ALT 38, Alkaline Phosphatase 111, Lactate Dehydrogenase 758 H, Total Creatine Kinase 218, Troponin I < 0.01 D, Total Protein 8.6 H, Albumin 4.8, Globulin 3.8, Albumin/Globulin Ratio 1.3, Lipase 32 04/29/18 11:39: WBC 7.3 D, RBC 4.38, Hgb 11.6 L, Hct 35.3 L, MCV 80.6, MCH 26.5 , MCHC 32.9, RDW 15.4 H, Plt Count 355, MPV 9.1, Gran % 85.6 H, Lymph % (Auto) 12.4 L, Divide % (Auto) 1.8, Eos % (Auto) 0.1 L, Baso % (Auto) 0.1, Gran # 6.21, Lymph # (Auto) 0.9 L, Divide # (Auto) 0.1, Eos # (Auto) 0.0, Baso # (Auto) 0.01 04/29/18 10:44: POC Glucose (mg/dL) 247 H - RAD Interpretation Radiology Orders: 04/29/18 13:46 CHEST PORTABLE [RAD] Stat - Medication Orders Current Medication Orders: Discontinued Medications Amlodipine Besylate (Norvasc) 5 mg PO STAT STA Stop: 04/29/18 14:56 Last Admin: 04/29/18 15:06 Dose: Not Given Non-Admin Reason: Patient Refused Hydromorphone HCl (Dilaudid) 1 mg IVP STAT STA Stop: 04/29/18 11:36 Last Admin: 04/29/18 11:44 Dose: 1 mg MAR Pain Assessment Document 04/29/18 11:44 RD (Rec: 04/29/18 11:44 RD [id number]) Pain Reassessment Is this a pain reassessment? No Sleep Is patient sleeping during reassessment? No Presence of Pain Presence of Pain Yes Pain Scale Used Pain Scale Used Numeric Location Pain Location Body Site Abdomen Description Description Constant Intensity of Pain at present 9 Acceptable Level of Pain 3 Pain Behavior Moaning Guarding Irritability IVP Administration Document 04/29/18 11:44 RD (Rec: 04/29/18 11:44 RD [id number]) Charges for Administration # of IVP Administrations 1 Sodium Chloride (Sodium Chloride 0.9%) 100 mls @ 999 mls/hr IV .Q6M STA Stop: 04/29/18 11:14 Last Admin: 04/29/18 11:45 Dose: 999 mls/hr eMAR Start Stop Document 04/29/18 11:45 RD (Rec: 04/29/18 11:45 RD [id number]) Intravenous Solution Start Date 04/29/18 Start Time 11:45 End Date 04/29/18 End time 12:45 Total Infusion Time 60 Ondansetron HCl (Zofran Inj) 4 mg IVP STAT STA Stop: 04/29/18 11:11 Last Admin: 04/29/18 11:45 Dose: 4 mg IVP Administration Document 04/29/18 11:45 RD (Rec: 04/29/18 11:45 RD [id number]) Charges for Administration # of IVP Administrations 1 <Delroy Hayes - Last Filed: 04/29/18 13:20> - Scribe Statement The provider has reviewed the documentation as recorded by the Scribe <Mir Crowder - Last Filed: 04/29/18 15:20> - Scribe Statement Radha Gerber Provider Scribe Attestation: All medical record entries made by the Scribe were at my direction and personally dictated by me. I have reviewed the chart and agree that the record accurately reflects my personal performance of the history, physical exam, medical decision making, and the department course for this patient. I have also personally directed, reviewed, and agree with the discharge instructions and disposition. (Mir Crowder) Disposition/Present on Arrival - Present on Arrival Any Indicators Present on Arrival: No History of DVT/PE: No History of Uncontrolled Diabetes: No Urinary Catheter: No History Surgical Site Infection Following: None - Disposition Have Diagnosis and Disposition been Completed?: Yes Disposition Time: 13:20 <Delroy Hayes - Last Filed: 04/29/18 13:20> - Disposition Patient Plan: Observation, Telemetry <Mir Crowder - Last Filed: 04/29/18 15:20> - Disposition Diagnosis: Abdominal pain, Tachycardia, Nausea & vomiting, Hyperglycemia, DKA (diabetic ketoacidosis) Disposition: HOSPITALIZED Patient Problems: Current Active Problems Problem Status Onset Nausea & vomiting Acute Tachycardia Acute Abdominal pain Chronic Condition: SERIOUS
[2018-04-29 10:59] VITALS: BMI 25.5
[2018-04-29] MEDS ORDERED: Sodium Chloride 0.9% 100 ML IV STA (11:09)
[2018-04-29] MEDS ORDERED: HYDROmorphone 1 mg/ml ISec IVP STA (11:35)
[2018-04-29 12:04] LABS: ALB/GLOB RATIO 1.3 (1.1-1.8); ALBUMIN 4.8 g/dL (3.0-4.8); ALT/SGPT 38 U/L (7-56); AST/SGOT 38 U/L (14-36); BLOOD UREA NITROGEN 19 mg/dL (7-21); CALCIUM 10.2 mg/dL (8.4-10.5); GFR AFRICAN-AMERICAN > 60; GFR NON-AFRICAN AMERICAN > 60; LIPASE 32 U/L (23-300)
[2018-04-29 12:15] LABS: TROPONIN I < 0.01 ng/mL
[2018-04-29 12:21] LABS: BASO # 0.01 K/mm3 (0.0-2.0); BASO % 0.1 % (0.0-3.0); EOS % 0.1 % (1.5-5.0); GRAN # 6.21 (1.4-6.5); GRAN % 85.6 % (50.0-68.0); HEMOGLOBIN 11.6 g/dL (12.0-16.0); LYMPH # 0.9 (1.2-3.4); LYMPH % 12.4 % (22.0-35.0); MEAN CELL VOLUME 80.6 fl (80.0-105.0); MEAN CORPUSCULAR HEMOGLOBIN 26.5 pg (25.0-35.0); MEAN CORPUSCULAR HGB CONC 32.9 g/dl (31.0-37.0); MEAN PLATELET VOLUME 9.1 fl (7.0-11.0); MONO # 0.1 (0.1-0.6); MONO % 1.8 % (1.0-6.0); RBC 4.38 10^6/uL (3.5-6.1); RED CELL DISTRIBUTION WIDTH 15.4 % (11.5-14.5); WHITE BLOOD COUNT 7.3 10^3/ul (4.5-11.0)
[2018-04-29 12:25] LABS: INR 0.97 (0.93-1.08); PARTIAL THROMBOPLASTIN TIME 27.4 Seconds (25.1-36.5); PROTHROMBIN TIME 11.1 SECONDS (9.4-12.5)
[2018-04-29 14:18] LABS: PH,URINE 6.5 (4.7-8.0); URINE APPEARANCE SL CLOUDY (CLEAR); URINE BILIRUBIN NEGATIVE (NEGATIVE); URINE BLOOD LARGE (NEGATIVE); URINE COLOR YELLOW (YELLOW); URINE GLUCOSE (UA) >=1000 mg/dL (NEGATIVE); URINE LEUKOCYTE ESTERASE NEGATIVE Leu/uL (NEGATIVE); URINE PROTEIN 30 mg/dL (<30 mg/dL); URINE UROBILINOGEN 0.2 E.U./dL (<1 E.U./dL)
[2018-04-29 14:21] LABS: HCG,QUALITATIVE URINE NEGATIVE (NEGATIVE)
[2018-04-29 14:24] LABS: URINE BACTERIA NEG (NEG); URINE EPITHELIAL CELLS 0 - 2 /hpf (0-5); URINE RBC TNTC /hpf (0-2); URINE WBC 0 - 2 /hpf (0-6)
[2018-04-29 14:44] LABS: ARTERIAL BLOOD GAS HCO3 22.2 mmol/L (21-28); ARTERIAL BLOOD GAS O2 CAPACITY 15.4 mL/dl (16-24); ARTERIAL BLOOD GAS O2 CONTENT 14.9 ML/dl (15-23); ARTERIAL BLOOD GAS O2 SAT 96.6 % (95-98); ARTERIAL BLOOD GAS PCO2 43 mm/Hg (35-45); ARTERIAL BLOOD GAS PH 7.32 (7.35-7.45); ARTERIAL BLOOD GAS TCO2 23.5 mmol.L (22-28)
--- NOTE | 2018-04-29 14:47 | RAD ---
HISTORY: severe abdominal pain COMPARISON: 03/15/2018 FINDINGS: LUNGS: No active pulmonary disease. PLEURA: No significant pleural effusion identified, no pneumothorax apparent. CARDIOVASCULAR: Normal. OSSEOUS STRUCTURES: No significant abnormalities. VISUALIZED UPPER ABDOMEN: Normal. OTHER FINDINGS: None. IMPRESSION: No active disease.
[2018-04-29] MEDS ORDERED: Sodium Chloride 0.9% 1,000 ML IV STA (15:20)
[2018-04-29] MEDS ORDERED: HYDROmorphone 0.5 mg/0.5 ml ISec IVP STA (15:33)
[2018-04-29] MEDS: Sodium Chloride 0.9% 1,000 ML IV SCH (17:05)
[2018-04-29] MEDS ORDERED: POLYETHYLENE GLYCOL 3350 17 GM/Dose PACKET PO PRN (19:03)
[2018-04-29] MEDS: HYDROmorphone 0.5 mg/0.5 ml ISec IVP PRN ×2 (19:50→21:59)
[2018-04-29] MEDS ORDERED: Insulin Reg-MEDIUM-Coverage SC SCH (22:00)
[2018-04-29] MEDS ORDERED: Insulin Detemir 100 units/ml Vial (Levemir) SC SCH (22:00)
[2018-04-29] MEDS: Insulin Lispro (humaLOG) LOW Coverage SC SCH (22:09)
[2018-04-30] MEDS: Sodium Chloride 0.9% 1,000 ML IV SCH (02:05)
[2018-04-30] MEDS: HYDROmorphone 0.5 mg/0.5 ml ISec IVP PRN ×7 (02:06→22:22)
[2018-04-30] MEDS ORDERED: Insulin Lispro (humaLOG) LOW Coverage SC STA (02:25)
--- NOTE | 2018-04-30 03:11 | CON ---
DATE: 04/29/2018 ENDOCRINOLOGY CONSULTATION LOCATION: In room 269, bed 2. HISTORY OF PRESENT ILLNESS: This is a 43-year-old female with known history of type 1 insulin-dependent diabetes presenting here with intractable nausea, dyspepsia and vomiting, and supervening abdominal pain and has now been admitted for further GI workup and management and also referred for diabetic evaluation and management. PAST MEDICAL HISTORY: History of type 1 insulin-dependent diabetes, currently on a combination of Levemir given as 30 units subcu at bedtime with Humalog given as 5 units t.i.d. before meals; history of hypertension and dyslipidemia, history of diabetic retinopathy and painful polyneuropathy, history of diabetic gastroparesis with multiple admissions for exacerbations of the same. She also has had multiple admissions for diabetic ketoacidosis. She also admits to prior lower extremity ulcerations and osteomyelitis in both feet. FAMILY HISTORY: Positive for hypertension and diabetes. SOCIAL HISTORY: Patient has supportive family. No known substance use. REVIEW OF SYSTEMS: As mentioned above, admits to generalized body weakness with easy fatigability and tiredness and suboptimal energy level. No chest pains or palpitations or PNDs. Her oral intake has been variable with nausea, dyspepsia and supervening intractable vomiting episodes with diffuse abdominal pain. PHYSICAL EXAMINATION: GENERAL: An average-built female, in no apparent distress. VITAL SIGNS: Blood pressure of 140/80, pulse of 100 beats per minute and regular, temperature 98, respirations 20, height is 5 feet 9 inches, weight is 173 pounds. HEENT: Head, normocephalic. Eyes anicteric with pink conjunctivae. Funduscopy not possible at this time. Ears, nose and throat otherwise normal. NECK: Supple. Thyroid gland is normal in size. No carotid bruits or cervical adenopathy. CARDIOPULMONARY: Some adynamic precordium. S1, S2 is rapid and regular. LUNGS: Clear to auscultation. ABDOMEN: Flat, soft with positive bowel sounds. EXTREMITIES: No peripheral edema. Pulses are +2 bilaterally. LABORATORY DATA: Her chemistry showed a BUN of 19, sodium 142, potassium 4.3, chloride 103, CO2 of 25, glucose is 284 and creatinine 0.8. ASSESSMENT: This is a 43-year-old female with uncontrolled and decompensated type 1 insulin-dependent diabetes presenting here with acute exacerbation of diabetic gastroparesis and is now being referred for diabetic evaluation and management. She also has diabetic microvascular complications of retinopathy and polyneuropathy with macrovascular complications of peripheral arterial disease and vasculopathy. PLAN OF MANAGEMENT: As discussed with the patient and staff, we will modify her coverage scale to a low-dose algorithm using Humalog insulin as given. As her oral intake is advanced, we will switch her over to a more physiologic basal and bolus insulin drug combination as given. For now, we will add basal insulin with Levemir at 12 units subcu at bedtime daily to start tonight. We will obtain serial chemistries and supplement accordingly needed. We will continue the IV hydration as given and obtain serial chemistries accordingly. A hemoglobin A1c will be done to confirm her prior glycemic control, and baseline thyroid function studies and lipid panel will be ordered. We will follow and advise accordingly. Tamara Campo MD
[2018-04-30 07:12] LABS: BARBITURATES, UR NEGATIVE (NEGATIVE); BENZODIAZEPINES, UR NEGATIVE (NEGATIVE); OPIATES, UR POSITIVE (NEGATIVE); PHENCYCLIDINE, UR NEGATIVE (NEGATIVE)
[2018-04-30 07:53] LABS: HEMOGLOBIN 10.5 g/dL (12.0-16.0); MEAN CELL VOLUME 81.5 fl (80.0-105.0); MEAN CORPUSCULAR HEMOGLOBIN 26.3 pg (25.0-35.0); MEAN CORPUSCULAR HGB CONC 32.3 g/dl (31.0-37.0); MEAN PLATELET VOLUME 8.8 fl (7.0-11.0); RBC 3.99 10^6/uL (3.5-6.1); RED CELL DISTRIBUTION WIDTH 15.8 % (11.5-14.5); WHITE BLOOD COUNT 11.4 10^3/ul (4.5-11.0)
--- NOTE | 2018-04-30 08:10 | CP.PCM.CON ---
<Jose Angel Candelario - Last Filed: 04/30/18 10:16> History of Present Illness - History of Present Illness History of Present Illness: PGY5 GI Fellow Consult Note Patient is a 43yo female with PMHx significant for ucnontrolled DM type 1 complicated by gastroparesis, PUD, HTN who presents to the hospital with nausea , vomiting and abdominal pain for 3 days. She states that Monday she developed nausea with vomiting which worsened on Monday with dark brown emesis and thus she came to the ED for further evaluation. Patient has had numerous admission for the same. She admits to compliance with diabetes regimen at home but admits blood sugar began spiking over the weekend. She denies any meals outside the home, new cuisines, new medications, recent travel or recent antibiotic use. Denies constipation, hematemesis, hematochezia, melena, weight loss. Previously, patient has followed with doctors at [place] and now with Dr Oleary at [facility]. 12 system ROS performed and negative except where stated PMHx: See HPI PHSx: Denies FHx: HTN, DM Social: Denies tobacco, EtOH or illicit drug use Endo: April 2017 @ [facility] with Dr Oleary - patient reported Botox injections for gastroparesis Past Patient History - Infectious Disease Hx of Infectious Diseases: None - Tetanus Immunizations Tetanus Immunization: Unknown - Past Social History Smoking Status: Never Smoked - CARDIAC Hx Cardiac Disorders: Yes Hx Hypertension: Yes - PULMONARY Hx Respiratory Disorders: No - NEUROLOGICAL Hx Neurological Disorder: Yes (NEUROPATHY) - HEENT Hx HEENT Problems: Yes Other/Comment: wears glasses-nearsighted - RENAL Hx Chronic Kidney Disease: No - ENDOCRINE/METABOLIC Hx Diabetes Mellitus Type 1: Yes (hx DKA) - HEMATOLOGICAL/ONCOLOGICAL Hx Anemia: Yes - INTEGUMENTARY Hx Dermatological Problems: Yes (hx diabetic foot ulcers) - MUSCULOSKELETAL/RHEUMATOLOGICAL Hx Falls: No - GASTROINTESTINAL Hx Gastrointestinal Disorders: Yes (gastritis,gastroparesis) Hx Gastroesophageal Reflux: Yes - GENITOURINARY/GYNECOLOGICAL Hx Urinary Tract Infection: Yes - PSYCHIATRIC Hx Psychophysiologic Disorder: Yes Hx Anxiety: Yes - SURGICAL HISTORY Hx Cardiac Catheterization: No Other/Comment: endoscopy with BOTOX - ANESTHESIA Hx Anesthesia: No Hx Anesthesia Reactions: No Hx Malignant Hyperthermia: No Meds Allergies/Adverse Reactions: Allergies Allergy/AdvReac Type Severity Reaction Status Date / Time metoclopramide HCl AdvReac VOMITING Verified 04/26/18 09:47 [From Reglan] - Medications Medications: Current Medications Amlodipine Besylate (Norvasc) 5 mg PO DAILY [facility] Docusate Sodium (Colace) 100 mg PO BID [facility] Hydromorphone HCl (Dilaudid) 1 mg IVP Q3 PRN PRN Reason: Pain, severe (8-10) Last Admin: 04/30/18 04:49 Dose: 1 mg Sodium Chloride (Sodium Chloride 0.9%) 1,000 mls @ 100 mls/hr IV .Q10H [facility] Last Admin: 04/30/18 02:05 Dose: 100 mls/hr Insulin Detemir (Levemir) 12 unit SC HS [facility] Last Admin: 04/29/18 22:07 Dose: 12 units Insulin Human Lispro (Humalog Low) 0 units SC ACHS [facility] PRN Reason: Protocol Last Admin: 04/29/18 22:09 Dose: 4 units Lorazepam (Ativan) 0.5 mg PO BID [facility] PRN Reason: Protocol Metoprolol Tartrate (Lopressor) 25 mg PO BID [facility] Ondansetron HCl (Zofran Inj) 4 mg IVP Q6H PRN PRN Reason: Nausea/Vomiting Pantoprazole Sodium (Protonix Inj) 40 mg IVP DAILY [facility] Polyethylene Glycol (Miralax) 17 gm PO DAILY PRN PRN Reason: Constipation Sucralfate (Carafate Tab) 1 gm PO BID [facility] Physical Exam - Constitutional Additional comments: frequent spitting of saliva, no emesis during visit, uncomfortable - Eye Exam Eye Exam: EOMI, PERRL - ENT Exam ENT Exam: Mucous Membranes Moist - Respiratory Exam Respiratory Exam: Clear to Auscultation Bilateral. absent: Rales, Rhonchi, Wheezes - Cardiovascular Exam Cardiovascular Exam: Tachycardia, +S1, +S2 - GI/Abdominal Exam GI & Abdominal Exam: Guarding, Normal Bowel Sounds, Soft, Tenderness (epigastric ). absent: Distended, Firm, Hernia, Organomegaly - Extremities Exam Extremities exam: Positive for: normal inspection. Negative for: pedal edema - Neurological Exam Neurological exam: Alert, Oriented x3 - Psychiatric Exam Psychiatric exam: Anxious Results - Vital Signs Recent Vital Signs: Last Vital Signs Temp 98.2 F 04/30/18 06:00 Pulse 125 H 04/30/18 06:00 Resp 18 06/11/18 06:00 BP 142/82 04/30/18 06:00 Pulse Ox 96 04/30/18 06:00 - Labs Result Diagrams: 04/30/18 07:30 04/29/18 11:39 Labs: Laboratory Results - last 24 hr 04/29/18 04/29/18 04/29/18 14:40 16:28 21:37 WBC RBC Hgb Hct MCV MCH MCHC RDW Plt Count MPV pCO2 43 pO2 83.0 HCO3 22.2 ABG pH 7.32 L ABG Total CO2 23.5 ABG O2 Saturation 96.6 ABG O2 Content 14.9 L ABG Base Excess -3.8 L ABG Hemoglobin 11.0 L ABG Carboxyhemoglobin 0.5 POC ABG HHb (Measured) 3.4 ABG Methemoglobin 0.2 ABG O2 Capacity 15.4 L Hgb O2 Saturation 95.8 FiO2 21.0 POC Glucose (mg/dL) 284 H 368 H Urine Opiates Screen Urine Methadone Screen Ur Barbiturates Screen Ur Phencyclidine Scrn Ur Amphetamines Screen U Benzodiazepines Scrn U Oth Cocaine Metabols U Cannabinoids Screen 04/30/18 04/30/18 04/30/18 02:02 03:45 06:00 WBC RBC Hgb Hct MCV MCH MCHC RDW Plt Count MPV pCO2 pO2 HCO3 ABG pH ABG Total CO2 ABG O2 Saturation ABG O2 Content ABG Base Excess ABG Hemoglobin ABG Carboxyhemoglobin POC ABG HHb (Measured) ABG Methemoglobin ABG O2 Capacity Hgb O2 Saturation FiO2 POC Glucose (mg/dL) 317 H 302 H Urine Opiates Screen Positive H Urine Methadone Screen Negative Ur Barbiturates Screen Negative Ur Phencyclidine Scrn Negative Ur Amphetamines Screen Negative U Benzodiazepines Scrn Negative U Oth Cocaine Metabols Negative U Cannabinoids Screen Negative 04/30/18 04/30/18 04/30/18 06:51 07:30 07:41 WBC 11.4 H D RBC 3.99 Hgb 10.5 L Hct 32.5 L MCV 81.5 MCH 26.3 MCHC 32.3 RDW 15.8 H Plt Count 332 MPV 8.8 pCO2 pO2 HCO3 ABG pH ABG Total CO2 ABG O2 Saturation ABG O2 Content ABG Base Excess ABG Hemoglobin ABG Carboxyhemoglobin POC ABG HHb (Measured) ABG Methemoglobin ABG O2 Capacity Hgb O2 Saturation FiO2 POC Glucose (mg/dL) 304 H 291 H Urine Opiates Screen Urine Methadone Screen Ur Barbiturates Screen Ur Phencyclidine Scrn Ur Amphetamines Screen U Benzodiazepines Scrn U Oth Cocaine Metabols U Cannabinoids Screen Assessment & Plan - Assessment and Plan (Free Text) Assessment: Patient is a 43yo female with PMHx significant for ucnontrolled DM type 1 complicated by gastroparesis, PUD, HTN who presents to the hospital with nausea , vomiting and abdominal pain for 3 days -Diabetic gastroparesis -Uncontrolled DM Plan: -Continue with antiemetics as ordered -Would try to avoid opiate narcotics as possible given h/o constipation and effect on GI motility -Tight glycemic control -IVF/electrolyte replacement as necessary -Liquid diet and advance as tolerated to goal of 6 small meals per day, low fat/ fiber -Can consider prokinetic agents if symptoms do not improve - Fausto Ramos - Date & Time Date: 04/30/18 Time: 07:20 <Yamileth Be - Last Filed: 04/30/18 10:41> Meds - Medications Medications: Current Medications Amlodipine Besylate (Norvasc) 5 mg PO DAILY [facility] Docusate Sodium (Colace) 100 mg PO BID [facility] Hydromorphone HCl (Dilaudid) 1 mg IVP Q3 PRN PRN Reason: Pain, severe (8-10) Last Admin: 04/30/18 08:36 Dose: 1 mg Sodium Chloride (Sodium Chloride 0.9%) 1,000 mls @ 100 mls/hr IV .Q10H [facility] Last Admin: 04/30/18 02:05 Dose: 100 mls/hr Insulin Detemir (Levemir) 12 unit SC HS [facility] Last Admin: 04/29/18 22:07 Dose: 12 units Insulin Human Lispro (Humalog Low) 0 units SC ACHS [facility] PRN Reason: Protocol Last Admin: 04/30/18 08:35 Dose: 2 units Lorazepam (Ativan) 0.5 mg PO BID [facility] PRN Reason: Protocol Metoprolol Tartrate (Lopressor) 25 mg PO BID [facility] Ondansetron HCl (Zofran Inj) 4 mg IVP Q6H PRN PRN Reason: Nausea/Vomiting Pantoprazole Sodium (Protonix Inj) 40 mg IVP DAILY [facility] Polyethylene Glycol (Miralax) 17 gm PO DAILY PRN PRN Reason: Constipation Sucralfate (Carafate Tab) 1 gm PO BID [facility] Results - Vital Signs Recent Vital Signs: Last Vital Signs Temp 98.2 F 04/30/18 06:00 Pulse 125 H 04/30/18 06:00 Resp 18 04/30/18 06:00 BP 142/82 04/30/18 06:00 Pulse Ox 96 04/30/18 06:00 - Labs Result Diagrams: 04/30/18 07:30 04/29/18 11:39 Labs: Laboratory Results - last 24 hr 04/29/18 04/29/18 04/29/18 14:40 16:28 21:37 WBC RBC Hgb Hct MCV MCH MCHC RDW Plt Count MPV pCO2 43 pO2 83.0 HCO3 22.2 ABG pH 7.32 L ABG Total CO2 23.5 ABG O2 Saturation 96.6 ABG O2 Content 14.9 L ABG Base Excess -3.8 L ABG Hemoglobin 11.0 L ABG Carboxyhemoglobin 0.5 POC ABG HHb (Measured) 3.4 ABG Methemoglobin 0.2 ABG O2 Capacity 15.4 L Hgb O2 Saturation 95.8 FiO2 21.0 POC Glucose (mg/dL) 284 H 368 H Troponin I TSH 3rd Generation Urine Opiates Screen Urine Methadone Screen Ur Barbiturates Screen Ur Phencyclidine Scrn Ur Amphetamines Screen U Benzodiazepines Scrn U Oth Cocaine Metabols U Cannabinoids Screen 04/30/18 04/30/18 04/30/18 02:02 03:45 06:00 WBC RBC Hgb Hct MCV MCH MCHC RDW Plt Count MPV pCO2 pO2 HCO3 ABG pH ABG Total CO2 ABG O2 Saturation ABG O2 Content ABG Base Excess ABG Hemoglobin ABG Carboxyhemoglobin POC ABG HHb (Measured) ABG Methemoglobin ABG O2 Capacity Hgb O2 Saturation FiO2 POC Glucose (mg/dL) 317 H 302 H Troponin I TSH 3rd Generation Urine Opiates Screen Positive H Urine Methadone Screen Negative Ur Barbiturates Screen Negative Ur Phencyclidine Scrn Negative Ur Amphetamines Screen Negative U Benzodiazepines Scrn Negative U Oth Cocaine Metabols Negative U Cannabinoids Screen Negative 04/30/18 04/30/1804/30/18 06:51 07:30 07:30 WBC 11.4 H D RBC 3.99 Hgb 10.5 L Hct 32.5 L MCV 81.5 MCH 26.3 MCHC 32.3 RDW 15.8 H Plt Count 332 MPV 8.8 pCO2 pO2 HCO3 ABG pH ABG Total CO2 ABG O2 Saturation ABG O2 Content ABG Base Excess ABG Hemoglobin ABG Carboxyhemoglobin POC ABG HHb (Measured) ABG Methemoglobin ABG O2 Capacity Hgb O2 Saturation FiO2 POC Glucose (mg/dL) 304 H Troponin I TSH 3rd Generation 1.32 Urine Opiates Screen Urine Methadone Screen Ur Barbiturates Screen Ur Phencyclidine Scrn Ur Amphetamines Screen U Benzodiazepines Scrn U Oth Cocaine Metabols U Cannabinoids Screen 04/30/18 04/30/18 07:30 07:41 WBC RBC Hgb Hct MCV MCH MCHC RDW Plt Count MPV pCO2 pO2 HCO3 ABG pH ABG Total CO2 ABG O2 Saturation ABG O2 Content ABG Base Excess ABG Hemoglobin ABG Carboxyhemoglobin POC ABG HHb (Measured) ABG Methemoglobin ABG O2 Capacity Hgb O2 Saturation FiO2 POC Glucose (mg/dL) 291 H Troponin I < 0.01 TSH 3rd Generation Urine Opiates Screen Urine Methadone Screen Ur Barbiturates Screen Ur Phencyclidine Scrn Ur Amphetamines Screen U Benzodiazepines Scrn U Oth Cocaine Metabols U Cannabinoids Screen Attending/Attestation - Attestation I have personally seen and examined this patient.: Yes I have fully participated in the care of the patient.: Yes I have reviewed all pertinent clinical information: Yes Notes (Text): 04/30/18 10:40 Patient seen at bedside with GI fellow. This is a 42 year old female with h/o DMI and gastroparesis admitted with acute exacerbation. Recommend prokinetics and trail of erythromycin. Small frequent meals. Avoid opioids and narcotics. Start stool softeners. Tight glycemic control. Hydration and electrolyte replacement
--- NOTE | 2018-04-30 08:34 | PN ---
DATE: 04/30/2018 SUBJECTIVE: I saw Shanelle this morning, sitting up in bed, kind of riding back and forth, not really talking well with the throw up bucket in between her legs. She is still throwing up, not feeling well, no abdominal pain. She is on Ativan, Carafate, Colace, Dilaudid, insulin coverage, Levemir 12 at nighttime, Lopressor, MiraLax, Norvasc, Protonix, IV fluids, IV Protonix, Zofran around the clock every 4 hours; she is quite miserable. She is asking for ice chips, I will give her some ice chips. She is not wanting food yet, she wants to get her mouth moist. OBJECTIVE: VITAL SIGNS: She has a 98.2 temperature, 125 pulse, 142/82 blood pressure, 18 respiratory rate, 96% O2 sat on nasal cannula. HEENT: Head is atraumatic, normocephalic. HEART: Regular rate. LUNGS: Decreased breath sounds, but clear. ABDOMEN: Mildly distended. Decreased bowel sounds. Discomfort, but no guarding or rebound. EXTREMITIES: With no edema. DATA: She has a white count of 11.4, It went up, we will keep an eye on that, I am not going to start her on antibiotics at this time. Hemoglobin 10.5, 32.5 hematocrit with 332,000 platelets. She has a 142 sodium, potassium 4.3, BUN 19, creatinine 0.8. GFR is greater than 60, this was all yesterday, waiting for this mornings to come around. Last blood sugar was 291. Urine was with too numerous to count red blood cells, it is positive for opiates on the drug screen. She is being seen by GI and Endocrinology. She is tachycardic, she is on Lopressor. I will order some ice chips. We will check her labs tomorrow. She has gastroparesis and intractable nausea, vomiting, diabetes and tachycardia. She is still on observation. No fever, no chills, improved. David Theodore DO HIGINIO
[2018-04-30] MEDS: Insulin Lispro (humaLOG) LOW Coverage SC SCH ×4 (08:35→22:01)
--- NOTE | 2018-04-30 09:12 | HP ---
DATE OF EXAM: 04/29/2018 HISTORY OF PRESENT ILLNESS: I was called down to the ER today to see Shanelle. She had multiple episodes of coming to the emergency room in the past. She is a 43-year-old -[place] female _blood sugar was about 177, she took 5 units of insulin. She is in mild abdominal pain. She is asking for pain medication. No chest pain or shortness of breath. She is also coughing up coffee-ground . PAST MEDICAL HISTORY: Diabetes, hypertension, peripheral neuropathy, she wears glasses, she has had DKA in the past, anemia, diabetic foot ulcers. She had osteomyelitis of the left foot in 2013. She has gastritis, gastroparesis, and GERD. She has urinary tract infection. She has anxiety issues. PAST SURGICAL HISTORY: No previous surgeries. She had endoscopies and Botox in the past. FAMILY HISTORY: Diabetes in the family. SOCIAL HISTORY: Nonsmoker. No drinking. No drugs. ALLERGIES: METOCLOPRAMIDE, WHICH IS REGLAN. REVIEW OF SYSTEMS: She is very lethargic and tired, in a lot of abdominal pain. No vision changes. No hearing changes. No sore throat. No coughing. No shortness of breath. No chest pain or palpitation. She has abdominal pain, nausea, vomiting, coffee-ground emesis. No constipation or diarrhea at this time. . No problems urinating. No skin issues. No headaches or dizziness. PHYSICAL EXAMINATION: VITAL SIGNS: She has 110 pulse, 18 respiratory rate, 177/96 blood pressure, 100% O2 sat on room air, with 98.1 temp. GENERAL: She is very uncomfortable, HEENT: Head is atraumatic, normocephalic. Extraocular muscles are intact. Pupils are reactive to light and accommodation. Throat is moist. NECK: Supple. HEART: Regular rate, tachycardic. LUNGS: Decreased breath sounds, but clear to auscultation. Fair inspiration. ABDOMEN: Mildly distended. No guarding. Mild discomfort, but no rebound. Decreased bowel sounds were present. EXTREMITIES: No edema. NEUROLOGIC: GCS is 15. Cranial nerves II to XII grossly intact. SKIN: Warm and dry. No apparent ulcers or rashes appreciated. PSYCHIATRIC: Alert and oriented x3. LYMPHATICS: Thyroid midline. No palpable appreciable lymphadenopathy. LABORATORY DATA: She had multiple tests. The chest x-ray, no acute disease. On blood test, alcohol is less than 10. Urine; ketones are 40, large blood, negative for , negative bacteria. She has 142 sodium, 4.3 potassium, BUN 19, creatinine 0.8, GFR is greater than 60, sugar is 247, and also 284, calcium is 9.2. Total bili is 1.1, AST is 38, ALT is 38, alk phos 111, lactate dehydrogenase . Total creatinine kinase is 218. Troponin I is less than 0.01. Total protein is 8.6, albumin is 4.8, lipase is 32. She has 83 pO2. INR is 0.97. White count 7.3, hemoglobin 11.6, hematocrit 35.3, platelets of 365. PLAN: She will be placed on observation, IV fluids, pain meds, Zofran, Protonix, insulin coverage, GI, Cardio and Endocrinology eval. We will watch her to see how she does. acute abdominal pain, coffee-ground emesis and throw-up. Cough is little improved. Continue with aggressive treatment and care on Shanelle Mancini, here with severe abdominal pain. David Theodore DO MTDD
--- NOTE | 2018-04-30 09:52 | CARD ---
APPROVED REPORT EKG Measurement Heart [id number] <Conclusion> Sinus tachycardia RVCD Prolonged QTc
[2018-04-30 11:43] LABS: LDL CHOLESTEROL 90 mg/dL (0-129)
[2018-04-30 11:46] LABS: ALB/GLOB RATIO 1.5 (1.1-1.8); ALBUMIN 4.5 g/dL (3.0-4.8); ALT/SGPT 38 U/L (7-56); AST/SGOT 15 U/L (14-36); BLOOD UREA NITROGEN 27 mg/dL (7-21); CALCIUM 9.1 mg/dL (8.4-10.5); GFR AFRICAN-AMERICAN > 60; GFR NON-AFRICAN AMERICAN > 60; HDL CHOLESTEROL 136 mg/dL (29-60)
[2018-04-30] MEDS: Insulin Lispro 1 UNITS/0.01 ML SC SCH ×2 (17:30→18:02)
--- NOTE | 2018-04-30 17:46 | CON ---
DATE: 04/30/2018 CARDIOLOGY CONSULTATION HISTORY: The patient is a 43-year-old woman who presents with abdominal pain. The patient suffers from history of gastric paresis. In addition, she has a history of hypertension as well as diabetes mellitus. No previous cardiac history is noted. The patient does not smoke and has never had a myocardial infarction. She is still having her normal periods without history of control pills. REVIEW OF SYSTEMS: The patient is complaining of abdominal pain with nausea. No angina. No dyspnea. No edema in the lower extremities. PHYSICAL EXAMINATION: VITAL SIGNS: Blood pressure 142/82, the heart rate varies from 100-120s, sinus tachycardia. NECK: Negative JVD. LUNGS: Without rales. HEART: Reveals S1, S2. EXTREMITIES: Without edema. EKG shows sinus tachycardia with no acute changes. LABORATORY DATA: The glucose is 291. The bicarb is 25. The sodium is 142. Troponins are negative x2. IMPRESSION: 1. Sinus tachycardia secondary to abdominal pain. 2. Diabetes mellitus with transient diabetic ketoacidosis, which seemed to have improved. 3. Hypertension. PLAN: Given these findings, there is no evidence for a cardiac cause of her tachycardia. Her tachycardia is clearly from her diabetes out of control as well as her abdominal pain. GI workup is in progress. We will discontinue telemetry today. We will obtain an echocardiogram to evaluate her LV function. Jim Field MD
--- NOTE | 2018-04-30 17:56 | PN ---
DATE: 04/30/2018 ENDOCRINOLOGY FOLLOWUP NOTE LOCATION: In room 269. SUBJECTIVE: This is a 43-year-old female with recent uncontrolled type 1 insulin-dependent diabetes, presenting here with severe upper abdominal pain and intractable vomiting episodes with possible acute exacerbation of gastroparesis and is now being followed closely for metabolic management. Her glycemic levels are fluctuating because of the n.p.o. status at this time with no rapid acting insulin regimen as given. Her latest chemistries showed a BUN of 27, sodium 146, potassium 4.9, chloride 111, CO2 of 15, glucose 348 and creatinine 1. Her glucose values have ranged from 291-283 and 348 mg/dL. Her hemoglobin A1c is 10.5%, which is quite elevated and indicative of suboptimal metabolic control of her diabetic condition even prior to this admission. ASSESSMENT: This is a 43-year-old female with uncontrolled and decompensated type 1 insulin-dependent diabetes, presenting here with acute exacerbation of acute gastroparesis on the background of recurrent admissions for exacerbations of the same. She also has diabetic microvascular complications of retinopathy, polyneuropathy with diabetic macrovascular complications of possible peripheral arterial disease and vasculopathy. PLAN OF MANAGEMENT: As discussed with the patient and staff, we will modify her current insulin regimen and increase the Levemir to 20 units subcu at bedtime daily as given. We will advance her diet now to a soft diet if no further vomiting episodes have been noted and we will add Humalog given as 6 units subcu t.i.d. before meals as ordered. We will obtain serial chemistries and supplement accordingly as needed. We will follow. Tamara Campo MD
[2018-04-30] MEDS ORDERED: Insulin Detemir 100 units/ml Vial (Levemir) SC SCH (22:00)
[2018-04-30 23:24] VITALS: RESP 20
[2018-05-01] MEDS: HYDROmorphone 0.5 mg/0.5 ml ISec IVP PRN ×2 (01:27→06:14)
[2018-05-01] MEDS: Sodium Chloride 0.9% 1,000 ML IV SCH (01:30)
--- NOTE | 2018-05-01 03:33 | CP.PCM.PN ---
Subjective - Date & Time of Evaluation Date of Evaluation: 05/01/18 Time of Evaluation: 03:30 - Subjective Subjective: S: patient was seen for anxiety. States that she is having an anxiety attack. Has no other complaints. Medical record was reviewed. Is on Ativan 0.5 mg PO BID. O: Last Vital Signs 3 Temp 98.9 F 04/30/18 23:23 Pulse 111 H 04/30/18 23:23 Resp 20 04/30/18 23:23 BP 135/80 04/30/18 23:23 Pulse Ox 98 04/30/18 23:23 Awake, alert, restless. Sitting in bed. LUNGS:Normal breathing pattern. A:Anxiety. P:Ativan 0.5 mg IV x 1. Objective - Vital Signs/Intake and Output Vital Signs (last 24 hours): Temp Pulse Resp BP Pulse Ox 98.9 F 111 H 20 135/80 98 04/30/18 23:23 04/30/18 23:23 04/30/18 23:23 04/30/18 23:23 04/30/18 23:23 Intake and Output: 04/30/18 05/01/18 18:59 06:59 Intake Total 0 0 Output Total 2 Balance -2 0 - Medications Medications: Current Medications Amlodipine Besylate (Norvasc) 5 mg PO DAILY [facility] Last Admin: 04/30/18 10:33 Dose: 5 mg Docusate Sodium (Colace) 100 mg PO BID [facility] Last Admin: 04/30/18 18:02 Dose: 100 mg Hydromorphone HCl (Dilaudid) 1 mg IVP Q3 PRN PRN Reason: Pain, severe (8-10) Last Admin: 05/01/18 01:27 Dose: 1 mg Sodium Chloride (Sodium Chloride 0.9%) 1,000 mls @ 100 mls/hr IV .Q10H [facility] Last Admin: 05/01/18 01:30 Dose: 100 mls/hr Insulin Detemir (Levemir) 20 unit SC HS [facility] Last Admin: 04/30/18 22:02 Dose: 20 units Insulin Human Lispro (Humalog) 8 units SC AC [facility] Last Admin: 04/30/18 17:30 Dose: Not Given Insulin Human Lispro (Humalog Low) 0 units SC ACHS [facility] PRN Reason: Protocol Last Admin: 04/30/18 22:01 Dose: Not Given Lorazepam (Ativan) 0.5 mg PO BID [facility] PRN Reason: Protocol Last Admin: 04/30/18 18:03 Dose: 0.5 mg Metoprolol Tartrate (Lopressor) 25 mg PO BID [facility] Last Admin: 04/30/18 18:02 Dose: 25 mg Ondansetron HCl (Zofran Inj) 4 mg IVP Q6H PRN PRN Reason: Nausea/Vomiting Last Admin: 04/30/18 18:03 Dose: 4 mg Pantoprazole Sodium (Protonix Inj) 40 mg IVP DAILY [facility] Last Admin: 04/30/18 10:34 Dose: 40 mg Polyethylene Glycol (Miralax) 17 gm PO DAILY PRN PRN Reason: Constipation Sucralfate (Carafate Tab) 1 gm PO BID [facility] Last Admin: 04/30/18 18:10 Dose: 1 gm - Labs Labs: 04/30/18 07:30 04/30/18 07:30 PT 11.1 SECONDS (9.4-12.5) 04/29/18 11:39 INR 0.97 (0.93-1.08) 04/29/18 11:39 APTT 27.4 Seconds (25.1-36.5) 04/29/18 11:39
[2018-05-01 07:32] LABS: HEMOGLOBIN 10.2 g/dL (12.0-16.0); MEAN CELL VOLUME 83.4 fl (80.0-105.0); MEAN CORPUSCULAR HEMOGLOBIN 26.4 pg (25.0-35.0); MEAN CORPUSCULAR HGB CONC 31.7 g/dl (31.0-37.0); MEAN PLATELET VOLUME 8.8 fl (7.0-11.0); RBC 3.86 10^6/uL (3.5-6.1); RED CELL DISTRIBUTION WIDTH 16.6 % (11.5-14.5); WHITE BLOOD COUNT 10.8 10^3/ul (4.5-11.0)
[2018-05-01 08:15] LABS: ALB/GLOB RATIO 1.4 (1.1-1.8); ALBUMIN 4.4 g/dL (3.0-4.8); ALT/SGPT 39 U/L (7-56); AST/SGOT 37 U/L (14-36); BLOOD UREA NITROGEN 27 mg/dL (7-21); CALCIUM 9.2 mg/dL (8.4-10.5); GFR AFRICAN-AMERICAN > 60; GFR NON-AFRICAN AMERICAN > 60
[2018-05-01] MEDS: Insulin Lispro (humaLOG) LOW Coverage SC SCH ×3 (08:15→16:54)
[2018-05-01] MEDS: Insulin Lispro 1 UNITS/0.01 ML SC SCH ×2 (08:15→12:10)
--- NOTE | 2018-05-01 09:40 | CP.PCM.PN ---
<Jose Angel Candelario - Last Filed: 05/01/18 12:56> Subjective - Date & Time of Evaluation Date of Evaluation: 05/01/18 Time of Evaluation: 06:35 - Subjective Subjective: PGY5 GI Fellow Progress Note Patient seen and examined bedside this morning. The patient continues to admit to episodes of nausea/vomiting overnight and requested additional Xanax overnight for anxiety attack. Sleeping restfully this morning without issue. 12 system ROS performed and negative except where stated. Objective - Vital Signs/Intake and Output Vital Signs (last 24 hours): Temp Pulse Resp BP Pulse Ox 98 F 97 H 20 144/67 98 05/01/18 06:00 05/01/18 06:00 05/01/18 06:00 05/01/18 06:00 05/01/18 06:00 Intake and Output: 05/01/18 05/01/18 06:59 18:59 Intake Total 360 Balance 360 - Medications Medications: Current Medications Amlodipine Besylate (Norvasc) 5 mg PO DAILY [facility] Last Admin: 04/30/18 10:33 Dose: 5 mg Docusate Sodium (Colace) 100 mg PO BID [facility] Last Admin: 04/30/18 18:02 Dose: 100 mg Sodium Chloride (Sodium Chloride 0.9%) 1,000 mls @ 100 mls/hr IV .Q10H [facility] Last Admin: 05/01/18 01:30 Dose: 100 mls/hr Insulin Detemir (Levemir) 20 unit SC HS [facility] Last Admin: 04/30/18 22:02 Dose: 20 units Insulin Human Lispro (Humalog) 8 units SC AC [facility] Last Admin: 05/01/18 08:15 Dose: Not Given Insulin Human Lispro (Humalog Low) 0 units SC ACHS [facility] PRN Reason: Protocol Last Admin: 05/01/18 08:15 Dose: 3 units Lorazepam (Ativan) 0.5 mg PO BID [facility] PRN Reason: Protocol Last Admin: 04/30/18 18:03 Dose: 0.5 mg Metoprolol Tartrate (Lopressor) 25 mg PO BID [facility] Last Admin: 04/30/18 18:02 Dose: 25 mg Mupirocin (Bactroban Ointment) 1 gm NS BID [facility] Stop: 05/05/18 18:01 Ondansetron HCl (Zofran Inj) 4 mg IVP Q6H PRN PRN Reason: Nausea/Vomiting Last Admin: 04/30/18 18:03 Dose: 4 mg Pantoprazole Sodium (Protonix Inj) 40 mg IVP DAILY [facility] Last Admin: 04/30/18 10:34 Dose: 40 mg Polyethylene Glycol (Miralax) 17 gm PO DAILY PRN PRN Reason: Constipation Sucralfate (Carafate Tab) 1 gm PO BID [facility] Last Admin: 04/30/18 18:10 Dose: 1 gm Tramadol HCl (Ultram) 50 mg PO TID PRN PRN Reason: Pain, moderate (4-7) Last Admin: 05/01/18 09:26 Dose: 50 mg - Labs Labs: 05/01/18 07:00 05/01/18 07:00 PT 11.1 SECONDS (9.4-12.5) 04/29/18 11:39 INR 0.97 (0.93-1.08) 04/29/18 11:39 APTT 27.4 Seconds (25.1-36.5) 04/29/18 11:39 - Constitutional Appears: No Acute Distress - Eye Exam Eye Exam: EOMI, PERRL - ENT Exam ENT Exam: Mucous Membranes Moist - Respiratory Exam Respiratory Exam: Clear to Ausculation Bilateral. absent: Rales, Rhonchi, Wheezes - Cardiovascular Exam Cardiovascular Exam: Tachycardia, REGULAR RHYTHM, +S1, +S2 - GI/Abdominal Exam GI & Abdominal Exam: Soft, Tenderness (diffuse, worst in epigastric), Normal Bowel Sounds. absent: Distended, Firm, Guarding, Rigid, Organomegaly - Extremities Exam Extremities Exam: Normal Inspection. absent: Pedal Edema - Neurological Exam Neurological Exam: Alert, Awake, Oriented x3 - Psychiatric Exam Psychiatric exam: Anxious - Skin Skin Exam: Dry, Warm Assessment and Plan - Assessment and Plan (Free Text) Assessment: Patient is a 43yo female with PMHx significant for ucnontrolled DM type 1 complicated by gastroparesis, PUD, HTN who presents to the hospital with nausea , vomiting and abdominal pain for 3 days -Diabetic gastroparesis -Uncontrolled DM Plan: -Most recent A1c 10.5 -Appreciate endocrinology consultation and insulin regimen adjustments -Continue with antiemetics as ordered -Would try to avoid opiate narcotics as possible given h/o constipation and effect on GI motility -Tight glycemic control -IVF/electrolyte replacement as necessary -On soft diet, changed to low fat/fiber -Can consider prokinetic agents if symptoms persist - Reglan, Erythromycin -Recommend daily laxative therapy with Miralax <Uzair Trejo - Last Filed: 05/01/18 14:45> Objective - Vital Signs/Intake and Output Vital Signs (last 24 hours): Temp Pulse Resp BP Pulse Ox 98 F 96 H 20 139/96 H 98 05/01/18 06:00 05/01/18 12:00 05/01/18 06:00 05/01/18 10:45 05/01/18 06:00 Intake and Output: 05/01/18 05/01/18 06:59 18:59 Intake Total 360 Balance 360 - Medications Medications: Current Medications Amlodipine Besylate (Norvasc) 5 mg PO DAILY [facility] Last Admin: 05/01/18 10:12 Dose: 5 mg Docusate Sodium (Colace) 100 mg PO BID [facility] Last Admin: 05/01/18 10:12 Dose: 100 mg Sodium Chloride (Sodium Chloride 0.9%) 1,000 mls @ 100 mls/hr IV .Q10H [facility] Last Admin: 05/01/18 01:30 Dose: 100 mls/hr Insulin Detemir (Levemir) 34 unit SC HS MICHELLE Insulin Human Lispro (Humalog Low) 0 units SC ACHS [facility] PRN Reason: Protocol Last Admin: 05/01/18 11:47 Dose: Not Given Insulin Human Lispro (Humalog) 12 units SC AC MICHELLE Lorazepam (Ativan) 0.5 mg PO BID [facility] PRN Reason: Protocol Last Admin: 05/01/18 10:12 Dose: 0.5 mg Metoprolol Tartrate (Lopressor) 25 mg PO BID [facility] Last Admin: 05/01/18 10:12 Dose: 25 mg Mupirocin (Bactroban Ointment) 1 gm NS BID [facility] Stop: 05/05/18 18:01 Last Admin: 05/01/18 10:14 Dose: 1 gm Ondansetron HCl (Zofran Inj) 4 mg IVP Q6H PRN PRN Reason: Nausea/Vomiting Last Admin: 04/30/18 18:03 Dose: 4 mg Pantoprazole Sodium (Protonix Inj) 40 mg IVP DAILY [facility] Last Admin: 05/01/18 10:12 Dose: 40 mg Polyethylene Glycol (Miralax) 17 gm PO DAILY MICHEL[facility] Sucralfate (Carafate Tab) 1 gm PO BID [facility] Last Admin: 05/01/18 10:12 Dose: 1 gm Tramadol HCl (Ultram) 50 mg PO TID PRN PRN Reason: Pain, moderate (4-7) Last Admin: 05/01/18 09:26 Dose: 50 mg - Labs Labs: 05/01/18 07:00 05/01/18 07:00 PT 11.1 SECONDS (9.4-12.5) 04/29/18 11:39 INR 0.97 (0.93-1.08) 04/29/18 11:39 APTT 27.4 Seconds (25.1-36.5) 04/29/18 11:39 Attending/Attestation - Attestation I have personally seen and examined this patient.: Yes I have fully participated in the care of the patient.: Yes I have reviewed all pertinent clinical information, including history, physical exam and plan: Yes Notes (Text): 05/01/18 14:45 43 year old female with diabetic gastroparesis admitted with exacerbation. Suspect drug seeking behavior as well. Would optimize glycemic control, minimize narcotics, start bowel regimen, advance diet slowly from liquid to low fat small freq meals. Will sign off.
[2018-05-01] MEDS: Mupirocin 2% Ointment 15 GM TUBE NS SCH ×2 (10:14→18:26)
--- NOTE | 2018-05-01 16:14 | PN ---
DATE: 05/01/2018 ENDO FOLLOWUP NOTE LOCATION: In room 568. SUBJECTIVE: This is a 43-year-old female with recent uncontrolled type 1 insulin-dependent diabetes, presenting here with acute exacerbation of diabetic gastroparesis with diffuse abdominal pain and intractable vomiting episodes that have slowly improved over time to the present time. She continued to have the episodic nausea and dyspepsia as noted with very poor suboptimal meal portions. Her glucose levels are fluctuating till the present time with glucose values overnight ranging from 318-328 mg/dL. Her latest chemistries done today showed a BUN of 27, sodium 150, potassium 4.9, chloride 114, CO2 of 16, glucose 395 and creatinine 1. So at this time, we will modify once again her basal and bolus insulin regimen and increase the Humalog to 12 units subcu t.i.d. before meals to start at dinnertime today as ordered. We will also increase her basal insulin with Levemir to be given at 34 units subcu at bedtime daily to start tonight. We will continue the modified Humalog insulin to obviate hypoglycemia and detailed orders have been given for her sliding scale orders. We will obtain serial chemistries and supplement accordingly as needed. We will follow. Tamara Campo MD
[2018-05-01 16:25] VITALS: BP 155/85; PULSE 113; TEMP 97.5; O2SAT 100
[2018-05-01] MEDS ORDERED: Insulin Lispro 1 UNITS/0.01 ML SC SCH (16:30)
[2018-05-01] MEDS ORDERED: Insulin Detemir 100 units/ml Vial (Levemir) SC SCH (22:00)
--- NOTE | 2018-05-02 07:55 | DS ---
DISCHARGE SUMMARY: She seems to be doing a bit better although she likes to hear I stopped the Dilaudid as per GI and put her on tramadol instead for the pain. She in pain right now. Also, she is starting to eat. If she does well for lunch, will be discharged today. She will go home on her regular medications plus tramadol. Hopefully, we will get her out of bed to chair. PHYSICAL EXAMINATION: VITAL SIGNS: 98 temperature, 97 pulse, 144/67 blood pressure, 20 respiratory rate, 90% O2 sat on room air. HEENT: Head: Atraumatic, normocephalic. HEART: Regular rate. LUNGS: Decreased breath sounds, but clear. ABDOMEN: Soft. Positive bowel sounds, improved. EXTREMITIES: No edema. LABORATORY DATA: She has a 10.8 white count, 10.2 hemoglobin, 32.2 hematocrit with 329 platelets. Sodium 150, potassium is 4.9, BUN 27, creatinine 1. Her blood sugars are still between the 300, 318, 288, 295. Calcium is 9.2. AST is 37, ALT is 39, alk phos is 98, total protein is 7.6, troponin is less than 0.01. I did consult Endocrinology. She has insulin and insulin coverage. I will increase her diabetes meds and hopefully she will improve and we will discharge her after lunch. She is here for gastroparesis and abdominal pain and observation status for 2 days. David Theodore DO MTDD
[2018-05-02] MEDS ORDERED: POLYETHYLENE GLYCOL 3350 17 GM/Dose PACKET PO SCH (10:00)
== END 2018-05-01 19:05 | disposition home or self-care (01) ==
LOC: ED 10:36 → INTOOBSV 13:50 → ERH 13:50 → 2RNO 16:13 → 5RNO 04-30 21:18
PROVIDERS: ADMIT Family Medicine; ATTEND Family Medicine
DX: E10.43 Type 1 diabetes mellitus with diabetic autonomic (poly)neuropathy (principal); K31.84 Gastroparesis; E10.10 Type 1 diabetes mellitus with ketoacidosis without coma; E78.5 Hyperlipidemia, unspecified; F41.1 Generalized anxiety disorder; I10 Essential (primary) hypertension; K21.9 Gastro-esophageal reflux disease without esophagitis; Z87.11 Personal history of peptic ulcer disease; Z83.3 Family history of diabetes mellitus
CPT/HCPCS: 36415; 71045; 80053; 80061; 80320; 80324; 80345; 80346; 80349; 80353; 80358; 80361; 81001; 82550; 82803; 82948; 83036; 83615; 83690; 83992; 84443; 84484; 84703; 85025; 85027; 85610; 85730; 93005; 96361; 96374; 96375; 96376; 99285; C9113; G0378; J1170; J2060; J2405; J7030; J7040

== ENCOUNTER 2018-05-04 14:02 | Inpatient (IN) | payer MEDICAID ==
[2018-05-04] MEDS ORDERED: Sodium Chloride 0.9% 1,000 ML IV STA (15:04)
--- NOTE | 2018-05-04 15:54 | ED PDOC ---
Arrival/HPI - General Chief Complaint: Palpitations Time Seen by Provider: 05/04/18 14:12 Historian: Patient, Family - History of Present Illness Narrative History of Present Illness (Text): 43yo female with history of diabetes, gastroparesis, GERD, diabetes, hypertension, presents to ER for evaluation of palpitations x 1 day. She describes the sensation as "heart racing" and associated with chest pain. Patient was recently discharged from this facility on 05/01 with similar symptoms. Otherwise, she denies any fever, chills, headache, shortness of breath. No other medical complaints. Past Medical History - Provider Review Nursing Documentation Reviewed: Yes - Past History Past History: No Previous - Infectious Disease Hx of Infectious Diseases: None - Tetanus Immunization Tetanus Immunization: Unknown - Past Medical History Past Medical History: No Previous - Cardiac Hx Cardiac Disorders: Yes Hx Hypertension: Yes - Pulmonary Hx Respiratory Disorders: No - Neurological Hx Neurological Disorder: Yes (NEUROPATHY) - HEENT Hx HEENT Disorder: Yes Other/Comment: wears glasses-nearsighted - Renal Hx Renal Disorder: No - Endocrine/Metabolic Hx Diabetes Mellitus Type 1: Yes (hx DKA) - Hematological/Oncological Hx Anemia: Yes - Integumentary Hx Dermatological Disorder: Yes (hx diabetic foot ulcers) - Musculoskeletal/Rheumatological Hx Falls: No - Gastrointestinal Hx Gastrointestinal Disorders: Yes (gastritis,gastroparesis) Hx Gastroesophageal Reflux: Yes - Genitourinary/Gynecological Hx Urinary Tract Infection: Yes - Psychiatric Hx Psychophysiologic Disorder: Yes Hx Anxiety: Yes Hx Substance Use: No - Past Surgical History Past Surgical History: No Previous - Surgical History Hx Cardiac Catheterization: No Other/Comment: endoscopy with BOTOX - Anesthesia Hx Anesthesia: No Hx Anesthesia Reactions: No Hx Malignant Hyperthermia: No - Suicidal Assessment Feels Threatened In Home Enviroment: No Family/Social History - Physician Review Nursing Documentation Reviewed: Yes Family/Social History: No Known Family HX Smoking Status: Never Smoked Hx Alcohol Use: No Hx Substance Use: No Hx Substance Use Treatment: No Allergies/Home Meds Allergies/Adverse Reactions: Allergies metoclopramide HCl [From Reglan] Adverse Reaction (Verified 05/04/18 14:22) VOMITING Review of Systems - Physician Review All systems were reviewed & negative as marked: Yes - Review of Systems Constitutional: absent: Fevers Respiratory: absent: SOB Cardiovascular: Chest Pain, Palpitations Gastrointestinal: Abdominal Pain, Vomiting Neurological: absent: Headache, Dizziness, Focal Weakness Physical Exam Vital Signs Reviewed: Yes Vital Signs Temp Pulse Resp BP Pulse Ox 05/04/18 17:35 88 16 120/76 99 05/04/18 15:54 94 H 18 113/75 98 05/04/18 14:19 97.6 F 100 H 18 111/76 99 Temperature: Afebrile Blood Pressure: Normal Pulse: Regular Respiratory Rate: Normal Appearance: Positive for: Non-Toxic, Uncomfortable Pain Distress: None Mental Status: Positive for: Alert and Oriented X 3 - Systems Exam Head: Present: Atraumatic, Normocephalic Neck: Present: Normal Range of Motion Respiratory/Chest: Present: Clear to Auscultation, Good Air Exchange. No: Respiratory Distress, Accessory Muscle Use Cardiovascular: Present: Regular Rate and Rhythm, Normal S1, S2. No: Murmurs Abdomen: Present: Tenderness (diffuse upper abdomen tenderness). No: Distention , Peritoneal Signs Back: Present: Normal Inspection Upper Extremity: Present: Normal Inspection. No: Cyanosis, Edema Lower Extremity: Present: Normal Inspection. No: Edema Neurological: Present: GCS=15, CN II-XII Intact, Speech Normal Skin: Present: Warm, Dry, Normal Color. No: Rashes Psychiatric: Present: Alert, Oriented x 3, Normal Insight, Normal Concentration Medical Decision Making ED Course and Treatment: Impression: Tachycardia, nausea and vomiting Plan: -- EKG -- Labs -- IV Fluids -- Toradol 30mg IVP -- Zofran 4mg IVP Progress: EKG: Sinus tachycardia Rate 102 pm Normal axis, normal intervals No ST/T wave changes 05/04/18 15:[address] Theodore, patient's PMD who is agreeable with management plan. 05/04/18 17:15 Patient reports persistent nausea, IV Normal Saline 1L ordered. Zofran 4mg IV ordered. 05/04/18 18:[address] Theodore again, and patient to be admitted to his service for observation. He is requesting Dr. Be for GI consult and Dr. Field for cardiology. - Lab Interpretations Lab Results: 05/04/18 16:27 05/04/18 16:27 Lab Results 05/04/18 16:27: Sodium 141, Potassium 4.5, Chloride 106, Carbon Dioxide 10 L D, Anion Gap 30 H, BUN 26 H, Creatinine 1.0, Est GFR ( Amer) > 60, Est GFR ( Non-Af Amer) > 60, Random Glucose 158 H, Calcium 9.8, Total Bilirubin 1.0, AST 24, ALT 49, Alkaline Phosphatase 117, Total Protein 8.7 H, Albumin 5.0 H, Globulin 3.7, Albumin/Globulin Ratio 1.4 05/04/18 16:27: WBC 9.9, RBC 4.82, Hgb 13.0 D, Hct 38.8, MCV 80.5, MCH 27.0, MCHC 33.5, RDW 16.1 H, Plt Count 324, MPV 9.1, Gran % 69.0 H, Lymph % (Auto) 19.0 L, [place] % (Auto) 11.6 H, Eos % (Auto) 0.2 L, Baso % (Auto) 0.2, Gran # 6.83 H, Lymph # (Auto) 1.9, [place] # (Auto) 1.2 H, Eos # (Auto) 0.0, Baso # (Auto ) 0.02 - Medication Orders Current Medication Orders: Amlodipine Besylate (Norvasc) 5 mg PO DAILY [facility] Docusate Sodium (Colace) 100 mg PO BID [facility] Sodium Chloride (Sodium Chloride 0.9%) 1,000 mls @ 250 mls/hr IV .Q4H [facility] Last Admin: 05/04/18 17:47 Dose: 250 mls/hr eMAR Start Stop Document 05/04/18 17:47 MS (Rec: 05/04/18 17:47 MS [email or web address] Intravenous Solution Start Date 05/04/18 Start Time 17:47 Sodium Chloride (Sodium Chloride 0.45%) 1,000 mls @ 100 mls/hr IV .Q10H [facility] Pantoprazole Sodium (Protonix 40mg Ivpb) 40 mg in 100 mls @ 200 mls/hr IVPB 0600 [facility] Insulin Human Regular (Humulin R High) 0 units SC ACHS [facility] PRN Reason: Protocol Ketorolac Tromethamine (Toradol) 30 mg IVP Q6H PRN PRN Reason: Pain, moderate (4-7) Lorazepam (Ativan) 0.5 mg PO BID [facility] PRN Reason: Protocol Metoprolol Tartrate (Lopressor) 25 mg PO BID [facility] Ondansetron HCl (Zofran Inj) 4 mg IVP Q4H PRN PRN Reason: Nausea/Vomiting Last Admin: 05/04/18 18:56 Dose: 4 mg IVP Administration Document 05/04/18 18:56 MS (Rec: 05/04/18 18:56 [email or web address] Charges for Administration # of IVP Administrations 1 Potassium Chloride (K-Dur 20 Meq Er Tab) 20 meq PO DAILY [facility] Sucralfate (Carafate Tab) 1 gm PO BID [facility] Discontinued Medications Sodium Chloride (Sodium Chloride 0.9%) 1,000 mls @ 999 mls/hr IV .Q1H1M STA Stop: 05/04/18 16:04 Last Admin: 05/04/18 16:05 Dose: 999 mls/hr eMAR Start Stop Document 05/04/18 16:05 MS (Rec: 05/04/18 16:06 [email or web address] Intravenous Solution Start Date 05/04/18 Start Time 16:06 End Date 05/04/18 End time 17:06 Total Infusion Time 60 Ketorolac Tromethamine (Toradol) 30 mg IVP STAT STA Stop: 05/04/18 15:06 Last Admin: 05/04/18 16:06 Dose: 30 mg MAR Pain Assessment Document 05/04/18 16:06 MS (Rec: 05/04/18 16:07 MS [email or web address] Pain Reassessment Is this a pain reassessment? No Sleep Is patient sleeping during reassessment? No Presence of Pain Presence of Pain Yes Pain Scale Used Pain Scale Used Numeric Location Pain Location Body Site Abdomen Description Description Constant Intensity of Pain at present 8 Pain Behavior Moaning Crying Facial Grimacing IVP Administration Document 05/04/18 16:06 MS (Rec: 05/04/18 16:07 [email or web address] Charges for Administration # of IVP Administrations 1 Ketorolac Tromethamine (Toradol) 30 mg IVP STAT STA Stop: 05/04/18 18:23 Last Admin: 05/04/18 18:56 Dose: 30 mg MAR Pain Assessment Document 05/04/18 18:56 MS (Rec: 05/04/18 18:56 [email or web address] Pain Reassessment Is this a pain reassessment? No Sleep Is patient sleeping during reassessment? No Presence of Pain Presence of Pain Yes Pain Scale Used Pain Scale Used Numeric Location Pain Location Body Site Abdomen Description Description Constant Intensity of Pain at present 9 Pain Behavior Moaning Irritability Rubbing Site IVP Administration Document 05/04/18 18:56 MS (Rec: 05/04/18 18:56 [email or web address] Charges for Administration # of IVP Administrations 1 Ondansetron HCl (Zofran Inj) 4 mg IVP STAT STA Stop: 05/04/18 15:05 Last Admin: 05/04/18 16:07 Dose: 4 mg IVP Administration Document 05/04/18 16:07 MS (Rec: 05/04/18 16:07 [email or web address] Charges for Administration # of IVP Administrations 1 Disposition/Present on Arrival - Present on Arrival Any Indicators Present on Arrival: No History of DVT/PE: No History of Uncontrolled Diabetes: No Urinary Catheter: No History of Decub. Ulcer: No History Surgical Site Infection Following: None - Disposition Have Diagnosis and Disposition been Completed?: Yes Diagnosis: Abdominal pain, Nausea & vomiting, Palpitations Disposition: HOSPITALIZED Disposition Time: 18:20 Condition: FAIR
[2018-05-04 16:36] LABS: BASO # 0.02 K/mm3 (0.0-2.0); BASO % 0.2 % (0.0-3.0); EOS % 0.2 % (1.5-5.0); GRAN # 6.83 (1.4-6.5); LYMPH # 1.9 (1.2-3.4); MEAN CELL VOLUME 80.5 fl (80.0-105.0); MEAN CORPUSCULAR HGB CONC 33.5 g/dl (31.0-37.0); MEAN PLATELET VOLUME 9.1 fl (7.0-11.0); MONO # 1.2 (0.1-0.6); MONO % 11.6 % (1.0-6.0); RBC 4.82 10^6/uL (3.5-6.1); RED CELL DISTRIBUTION WIDTH 16.1 % (11.5-14.5); WHITE BLOOD COUNT 9.9 10^3/ul (4.5-11.0)
[2018-05-04 16:41] LABS: ALB/GLOB RATIO 1.4 (1.1-1.8); ALT/SGPT 49 U/L (7-56); AST/SGOT 24 U/L (14-36); BLOOD UREA NITROGEN 26 mg/dL (7-21); CALCIUM 9.8 mg/dL (8.4-10.5); GFR AFRICAN-AMERICAN > 60; GFR NON-AFRICAN AMERICAN > 60
[2018-05-04] MEDS: Sodium Chloride 0.9% 1,000 ML IV SCH (17:47)
[2018-05-04] MEDS: Sodium Chloride 0.45% 1,000 ML IV SCH (20:51)
[2018-05-04] MEDS ORDERED: Morphine 2 mg/2 mL syringe IVP PRN (20:55)
--- NOTE | 2018-05-04 21:16 | CARD ---
APPROVED REPORT EKG Measurement Heart [id number] <Conclusion> Sinus tachycardia Otherwise normal ECG
[2018-05-04] MEDS: Morphine 2 mg/ml ISec IVP PRN (21:30)
[2018-05-04] MEDS: Insulin Reg-HIGH-Coverage SC SCH (21:56)
[2018-05-04 22:34] LABS: VENOUS BLOOD GAS BASE EXCESS -19.1 mmol/L (0.0-2.0); VENOUS BLOOD GAS PO2 49 mm/Hg (30-55)
[2018-05-04 22:38] LABS: VENOUS BLOOD PH 7.15 (7.32-7.43)
[2018-05-04 23:01] LABS: CALCIUM 9.1 mg/dL (8.4-10.5)
[2018-05-05 00:45] VITALS: BMI 23.6
[2018-05-05] MEDS: Morphine 2 mg/ml ISec IVP PRN (01:01)
[2018-05-05] MEDS: Sodium Chloride 0.9% 1,000 ML IV SCH ×3 (01:35→10:58)
[2018-05-05] MEDS ORDERED: Metoprolol 1 mg/ml Inj IVP ONE (01:38)
--- NOTE | 2018-05-05 01:50 | CP.PCM.PN ---
Subjective - Date & Time of Evaluation Date of Evaluation: 05/05/18 Time of Evaluation: 01:44 - Subjective Subjective: Patient was seen because she complained of insomnia, palpitation. States that she feels anxious. Has no other complaints now. Medical record was reviewed. This 43 year old woman is admitted with racing of heart , chest pain,abdominal pain,nausea,vomiting. Has PMH of HTN,DM,GERD gastroparesis,anxiety, UTI, anemia. Objective - Vital Signs/Intake and Output Vital Signs (last 24 hours): Temp Pulse Resp BP Pulse Ox 98.5 F 117 H 16 134/76 99 05/04/18 22:00 05/04/18 22:00 05/04/18 22:00 05/04/18 22:00 05/04/18 22:00 Intake and Output: 05/04/18 05/05/18 18:59 06:59 Intake Total 0 Balance 0 - Medications Medications: Current Medications Amlodipine Besylate (Norvasc) 5 mg PO DAILY [facility] Docusate Sodium (Colace) 100 mg PO BID [facility] Sodium Chloride (Sodium Chloride 0.9%) 1,000 mls @ 250 mls/hr IV .Q4H [facility] Last Admin: 05/05/18 01:35 Dose: Not Given Sodium Chloride (Sodium Chloride 0.45%) 1,000 mls @ 100 mls/hr IV .Q10H [facility] Last Admin: 05/04/18 20:51 Dose: Not Given Pantoprazole Sodium (Protonix 40mg Ivpb) 40 mg in 100 mls @ 200 mls/hr IVPB 0600 [facility] Insulin Human Regular (Humulin R High) 0 units SC ACHS MIC[facility]LE PRN Reason: Protocol Last Admin: 05/04/18 21:56 Dose: Not Given Ketorolac Tromethamine (Toradol) 30 mg IVP Q6H PRN PRN Reason: Pain, moderate (4-7) Lorazepam (Ativan) 0.5 mg PO BID MICHELLE PRN Reason: Protocol Lorazepam (Ativan) 0.5 mg IVP STAT STA PRN Reason: Protocol Stop: 05/05/18 01:39 Metoprolol Tartrate (Lopressor) 25 mg PO BID [facility] Morphine Sulfate (Morphine) 1 mg IVP Q3 PRN PRN Reason: PAIN, MODERATE [4-7] Last Admin: 05/05/18 01:01 Dose: 1 mg Ondansetron HCl (Zofran Inj) 4 mg IVP Q4H PRN PRN Reason: Nausea/Vomiting Last Admin: 05/04/18 18:56 Dose: 4 mg Potassium Chloride (K-Dur 20 Meq Er Tab) 20 meq PO DAILY MIC[facility] Sucralfate (Carafate Tab) 1 gm PO BID MICHELLE - Labs Labs: 05/04/18 22:25 Most Recent Lab Values WBC 9.9 10^3/ul (4.5-11.0) 05/04/18 16:27 RBC 4.82 10^6/uL (3.5-6.1) 05/04/18 16:27 Hgb 13.0 g/dL (12.0-16.0) D 05/04/18 16:27 Hct 38.8 % (36.0-48.0) 05/04/18 16:27 MCV 80.5 fl (80.0-105.0) 05/04/18 16: MCH 27.0 pg (25.0-35.0) 05/04/18 16:27 MCHC 33.5 g/dl (31.0-37.0) 05/04/18 16:27 RDW 16.1 % (11.5-14.5) H 05/04/18 16:27 Plt Count 324 10^3/uL (120.0-450.0) 05/04/18 16:27 MPV 9.1 fl (7.0-11.0) 05/04/18 16:27 Gran % 69.0 % (50.0-68.0) H 05/04/18 16:27 Lymph % (Auto) 19.0 % (22.0-35.0) L 05/04/18 16:27 [place] % (Auto) 11.6 % (1.0-6.0) H 05/04/18 16:27 Eos % (Auto) 0.2 % (1.5-5.0) L 05/04/18 16:27 Baso % (Auto) 0.2 % (0.0-3.0) 05/04/18 16:27 Gran # 6.83 (1.4-6.5) H 05/04/18 16:27 Lymph # (Auto) 1.9 (1.2-3.4) 05/04/18 16:27 [place] # (Auto) 1.2 (0.1-0.6) H 05/04/18 16:27 Eos # (Auto) 0.0 (0.0-0.7) 05/04/18 16:27 Baso # (Auto) 0.02 K/mm3 (0.0-2.0) 05/04/18 16:27 pO2 49 mm/Hg (30-55) 05/04/18 22:25 VBG pH 7.15 (7.32-7.43) L* 05/04/18 22:25 VBG pCO2 23.0 (40-60) L 05/04/18 22:25 VBG HCO3 8.0 mmol/l (21-28) L 05/04/18 22:25 VBG O2 Sat (Calc) 82.9 % (40-65) H 05/04/18 22:25 VBG Base Excess -19.1 mmol/L (0.0-2.0) L 05/04/18 22:25 Sodium 141 mmol/L (132-148) 05/04/18 22:25 Potassium 4.7 mmol/L (3.6-5.0) 05/04/18 22:25 Chloride 105 mmol/L (98-107) 05/04/18 22:25 Carbon Dioxide 7 mmol/L (21-33) L D 05/04/18 22:25 Anion Gap 34 (10-20) H 05/04/18 22:25 BUN 28 mg/dL (7-21) H 05/04/18 22:25 Creatinine 1.2 mg/dl (0.7-1.2) 05/04/18 22:25 Est GFR ( Amer) 60 05/04/18 22:25 Est GFR (Non-Af Amer) 50 05/04/18 22:25 POC Glucose (mg/dL) 271 mg/dL (65-110) H 05/04/18 21:52 Random Glucose 343 mg/dL (70-110) H* D 05/04/18 22:25 Calcium 9.1 mg/dL (8.4-10.5) 05/04/18 22:25 Total Bilirubin 1.0 mg/dL (0.2-1.3) 05/04/18 16:27 AST 24 U/L (14-36) 05/04/18 16:27 ALT 49 U/L (7-56) 05/04/18 16:27 Alkaline Phosphatase 117 U/L (38-126) 05/04/18 16:27 Total Protein 8.7 g/dL (5.8-8.3) H 05/04/18 16:27 Albumin 5.0 g/dL (3.0-4.8) H 05/04/18 16:27 Globulin 3.7 gm/dL 05/04/18 16:27 Albumin/Globulin Ratio 1.4 (1.1-1.8) 05/04/18 16:27 - Constitutional Appears: Well, No Acute Distress - Head Exam Head Exam: ATRAUMATIC, NORMAL INSPECTION, NORMOCEPHALIC - Eye Exam Eye Exam: Normal appearance - ENT Exam ENT Exam: Normal External Ear Exam - Neck Exam Neck Exam: Normal Inspection - Respiratory Exam Respiratory Exam: NORMAL BREATHING PATTERN - Cardiovascular Exam Cardiovascular Exam: absent: JVD - GI/Abdominal Exam GI & Abdominal Exam: absent: Distended - Rectal Exam Rectal Exam: Deferred - Exam Additional comments: Deferred. - Extremities Exam Extremities Exam: Normal Inspection - Back Exam Back Exam: NORMAL INSPECTION - Neurological Exam Neurological Exam: Alert, Awake, Oriented x3 - Psychiatric Exam Psychiatric exam: Anxious - Skin Skin Exam: Normal Color Assessment and Plan - Assessment and Plan (Free Text) Assessment: Anxiety. Palpitation. Insomnia. Sinus tachycardia. Chest pain/abdominal pain. HTN. DM II. GERD. Plan: Lopressor 25 mg PO x 1. Benadryl 25 mg PO x 1. Ativan 0.5 mg IV x 1. Continue present management.
--- NOTE | 2018-05-05 04:29 | HP ---
HISTORY OF PRESENT ILLNESS: She was just here about a week ago. She is back with the same pain, intractable nausea, vomiting and abdominal pain. The mother is with her telling us "don't give her any pain meds or narcotics." She is a 43-year-old female with heart racing, palpitations, also abdominal pain, nausea, vomiting, similar to what happened the last time she was here. PAST MEDICAL HISTORY: Gastroparesis, diabetes, GERD, hypertension, palpitations. She has a neuropathy, history of DKA, history of anemia, history of diabetic foot ulcers, gastritis, gastroparesis, reflux, anxiety, endoscopy, and Botox injections. FAMILY HISTORY: Diabetes in the family. SOCIAL HISTORY: No smoking. No drinking. No drugs. ALLERGIES: METOCLOPRAMIDE, WHICH IS REGLAN. REVIEW OF SYSTEMS: No fevers. No shortness of breath. There is chest pain and palpitations. There is abdominal pain, nausea, vomiting. No headache. She is very uncomfortable, not really giving me much of a great review of systems, does not want to talk. PHYSICAL EXAMINATION: VITAL SIGNS: Temperature 97.6, 100 pulse, 18 respiratory rate, 111/76 blood pressure, 99% O2 sat on room air. HEENT: Head is atraumatic, normocephalic. She is very toxic, uncomfortable, not feeling well. NECK: Has good range of motion. HEART: Regular rate. Normal S1 and S2. LUNGS: Decreased breath sounds, but clear to auscultation. ABDOMEN: Diffuse upper abdominal tenderness. No distention. No guarding, no rebound. EXTREMITIES: No edema. NEUROLOGIC: GCS is 15. Cranial nerves II through XII grossly intact. Speech is normal. SKIN: Warm and dry that I could tell. PSYCHIATRIC: Alert and oriented x3. LYMPHATICS: Thyroid midline. No palpable lymphadenopathy appreciated. LABORATORY DATA: White count 9.9, 13 hemoglobin, 38.8 hematocrit, with 324 platelets. Sodium 141, potassium 4.5, BUN 26, creatinine is 1, GFR is greater than 60. Sugar is 158. Calcium is 9.8, total bili is 1, AST is 24, ALT is 49, alk phos 117, total protein is 8.7. IMPRESSION AND PLAN: She will have IV fluids, IV Protonix, IV Zofran, her regular medications. Cardiology and GI consults should be put in for intractable nausea and vomiting, intractable abdominal pain, palpitations. Observation, telemetry. David Theodore DO MTDRuth Ann
[2018-05-05] MEDS: Pantoprazole 40mg/100mL NS 40 MG/100 ML BAG IVPB SCH (05:36)
[2018-05-05] MEDS: Sodium Chloride 0.45% 1,000 ML IV SCH (05:37)
[2018-05-05] MEDS: Insulin Reg-HIGH-Coverage SC SCH ×2 (05:55→07:40)
[2018-05-05 07:50] LABS: HEMOGLOBIN 13.2 g/dL (12.0-16.0); MEAN CELL VOLUME 84.8 fl (80.0-105.0); MEAN CORPUSCULAR HGB CONC 31.9 g/dl (31.0-37.0); MEAN PLATELET VOLUME 9.4 fl (7.0-11.0); RBC 4.88 10^6/uL (3.5-6.1); RED CELL DISTRIBUTION WIDTH 17.1 % (11.5-14.5)
[2018-05-05 08:09] LABS: ALB/GLOB RATIO 1.4 (1.1-1.8); ALBUMIN 4.6 g/dL (3.0-4.8); ALT/SGPT 40 U/L (7-56); AST/SGOT 18 U/L (14-36); BLOOD UREA NITROGEN 33 mg/dL (7-21); CALCIUM 9.1 mg/dL (8.4-10.5); GFR AFRICAN-AMERICAN 55; GFR NON-AFRICAN AMERICAN 45
[2018-05-05] MEDS ORDERED: Insulin Regular 1 UNITS/0.01 ML ML SC ONE (08:37)
[2018-05-05] MEDS: Potassium Chloride 20 mEq ER Tab PO SCH (10:50)
[2018-05-05] MEDS: Insulin Detemir 100 units/ml Vial (Levemir) SC SCH ×2 (10:50→21:22)
[2018-05-05] MEDS ORDERED: Sod Polystyrene Sulf 15 gm/60 ml Susp PO ONE (12:23)
[2018-05-05] MEDS: Insulin Lispro (humaLOG) LOW Coverage SC SCH ×3 (12:30→21:23)
--- NOTE | 2018-05-05 13:07 | CP.PCM.CON ---
<Mary Granado - Last Filed: 05/05/18 13:09> History of Present Illness - History of Present Illness History of Present Illness: GI Fellow PGY4 Consult Note This is a 43yo female with PMHx significant for ucnontrolled DM type 1 complicated by gastroparesis, PUD, HTN who presents to the hospital with nausea , vomiting and hyperglycemia. Pt was just discharged [place] [facility] [place]. Patient has had numerous admission for the same. She admits to compliance with diabetes regimen at home but admits blood sugar began spiking over the past two days. She denies any meals outside the home, new cuisines, new medications, recent travel or recent antibiotic use. Denies constipation, hematemesis, hematochezia, melena, weight loss. Previously, patient has followed with doctors at [place] and now with Dr Oleary at [facility]. ROS: 12 system ROS performed and negative except where stated PMHx: See HPI PHSx: Denies FHx: HTN, DM Social: Denies tobacco, EtOH or illicit drug use Endo: April 2017 @ [facility] with Dr Oleary - patient reported Botox injections for gastroparesis Past Patient History - Infectious Disease Hx of Infectious Diseases: None - Tetanus Immunizations Tetanus Immunization: Unknown - Past Social History Smoking Status: Never Smoked - CARDIAC Hx Cardiac Disorders: Yes Hx Hypertension: Yes - PULMONARY Hx Respiratory Disorders: No - NEUROLOGICAL Hx Neurological Disorder: Yes (NEUROPATHY) - HEENT Hx HEENT Problems: Yes Other/Comment: wears glasses-nearsighted - RENAL Hx Chronic Kidney Disease: No - ENDOCRINE/METABOLIC Hx Diabetes Mellitus Type 1: Yes (hx DKA) - HEMATOLOGICAL/ONCOLOGICAL Hx Anemia: Yes - INTEGUMENTARY Hx Dermatological Problems: Yes (hx diabetic foot ulcers) - MUSCULOSKELETAL/RHEUMATOLOGICAL Hx Falls: No - GASTROINTESTINAL Hx Gastrointestinal Disorders: Yes (gastritis,gastroparesis) Hx Gastroesophageal Reflux: Yes - GENITOURINARY/GYNECOLOGICAL Hx Urinary Tract Infection: Yes - PSYCHIATRIC Hx Psychophysiologic Disorder: Yes Hx Anxiety: Yes Hx Substance Use: No - SURGICAL HISTORY Hx Cardiac Catheterization: No Other/Comment: endoscopy with BOTOX - ANESTHESIA Hx Anesthesia: No Hx Anesthesia Reactions: No Hx Malignant Hyperthermia: No Meds Allergies/Adverse Reactions: Allergies Allergy/AdvReac Type Severity Reaction Status Date / Time metoclopramide HCl AdvReac VOMITING Verified 05/04/18 14:22 [From Reglan] - Medications Medications: Current Medications Amlodipine Besylate (Norvasc) 5 mg PO DAILY [facility] Last Admin: 05/05/18 10:51 Dose: 5 mg Docusate Sodium (Colace) 100 mg PO BID [facility] Last Admin: 05/05/18 10:49 Dose: 100 mg Sodium Chloride (Sodium Chloride 0.45%) 1,000 mls @ 100 mls/hr IV .Q10H [facility] Last Admin: 05/05/18 05:37 Dose: Not Given Pantoprazole Sodium (Protonix 40mg Ivpb) 40 mg in 100 mls @ 200 mls/hr IVPB 0600 [facility] Last Admin: 05/05/18 05:36 Dose: 200 mls/hr Insulin Detemir (Levemir) 20 unit SC Q12H [facility] Last Admin: 05/05/18 10:50 Dose: 20 units Insulin Human Lispro (Humalog Low) 0 units SC ACHS [facility] PRN Reason: Protocol Last Admin: 05/05/18 12:30 Dose: 1 unit Ketorolac Tromethamine (Toradol) 30 mg IVP Q6H PRN PRN Reason: Pain, moderate (4-7) Lorazepam (Ativan) 0.5 mg PO BID [facility] PRN Reason: Protocol Last Admin: 05/05/18 10:51 Dose: 0.5 mg Metoprolol Tartrate (Lopressor) 25 mg PO BID [facility] Last Admin: 05/05/18 10:51 Dose: 25 mg Ondansetron HCl (Zofran Inj) 4 mg IVP Q4H PRN PRN Reason: Nausea/Vomiting Last Admin: 05/04/18 18:56 Dose: 4 mg Potassium Chloride (K-Dur 20 Meq Er Tab) 20 meq PO DAILY [facility] Last Admin: 05/05/18 10:50 Dose: 20 meq Sucralfate (Carafate Tab) 1 gm PO BID [facility] Last Admin: 05/05/18 10:51 Dose: 1 gm Physical Exam - Constitutional Appears: Non-toxic, No Acute Distress - Head Exam Head Exam: ATRAUMATIC, NORMAL INSPECTION, NORMOCEPHALIC - Eye Exam Eye Exam: EOMI, Normal appearance, PERRL Pupil Exam: PERRL - ENT Exam ENT Exam: Mucous Membranes Moist - Neck Exam Neck exam: Positive for: Normal Inspection - Respiratory Exam Respiratory Exam: Clear to Auscultation Bilateral, NORMAL BREATHING PATTERN - Cardiovascular Exam Cardiovascular Exam: REGULAR RHYTHM, +S1, +S2 - GI/Abdominal Exam GI & Abdominal Exam: Normal Bowel Sounds, Soft, Tenderness. absent: Distended, Guarding, Organomegaly - Rectal Exam Rectal Exam: Deferred - Extremities Exam Extremities exam: Positive for: full ROM, normal inspection - Back Exam Back exam: NORMAL INSPECTION - Neurological Exam Neurological exam: Alert, Oriented x3 - Psychiatric Exam Psychiatric exam: Normal Affect, Normal Mood - Skin Skin Exam: Dry, Intact, Normal Color, Warm Results - Vital Signs Recent Vital Signs: Last Vital Signs Temp 97.7 F 05/05/18 07:50 Pulse 87 05/05/18 10:51 Resp 20 05/05/18 07:50 BP 152/87 H 05/05/18 10:51 Pulse Ox 100 05/05/18 07:50 - Labs Result Diagrams: 05/05/18 07:35 05/05/18 07:35 Labs: Laboratory Results - last 24 hr 05/04/18 05/04/18 05/04/18 21:52 22:25 22:25 WBC RBC Hgb Hct MCV MCH MCHC RDW Plt Count MPV pO2 49 VBG pH 7.15 L* VBG pCO2 23.0 L VBG HCO3 8.0 L VBG O2 Sat (Calc) 82.9 H VBG Base Excess -19.1 L Sodium 141 Potassium 4.7 Chloride 105 Carbon Dioxide 7 L D Anion Gap 34 H BUN 28 H Creatinine 1.2 Est GFR ( Amer) 60 Est GFR (Non-Af Amer) 50 POC Glucose (mg/dL) 271 H Random Glucose 343 H* D Calcium 9.1 Total Bilirubin AST ALT Alkaline Phosphatase Total Protein Albumin Globulin Albumin/Globulin Ratio 05/05/18 05/05/18 05/05/18 05:40 06:27 07:22 WBC RBC Hgb Hct MCV MCH MCHC RDW Plt Count MPV pO2 VBG pH VBG pCO2 VBG HCO3 VBG O2 Sat (Calc) VBG Base Excess Sodium Potassium Chloride Carbon Dioxide Anion Gap BUN Creatinine Est GFR ( Amer) Est GFR (Non-Af Amer) POC Glucose (mg/dL) 414 H* 401 H* 412 H* Random Glucose Calcium Total Bilirubin AST ALT Alkaline Phosphatase Total Protein Albumin Globulin Albumin/Globulin Ratio 05/05/18 05/05/18 05/05/18 07:35 07:35 09:24 WBC 11.0 RBC 4.88 Hgb 13.2 Hct 41.4 MCV 84.8 D MCH 27.0 MCHC 31.9 RDW 17.1 H Plt Count 268 MPV 9.4 pO2 VBG pH VBG pCO2 VBG HCO3 VBG O2 Sat (Calc) VBG Base Excess Sodium 138 Potassium 5.5 H Chloride 105 Carbon Dioxide < 5 L D Anion Gap 34 H BUN 33 H Creatinine 1.3 H Est GFR ( Amer) 55 Est GFR (Non-Af Amer) 45 POC Glucose (mg/dL) 324 H Random Glucose 499 H* D Calcium 9.1 Total Bilirubin 0.8 AST 18 ALT 40 Alkaline Phosphatase 102 Total Protein 8.0 Albumin 4.6 Globulin 3.4 Albumin/Globulin Ratio 1.4 05/05/18 05/05/18 10:18 11:44 WBC RBC Hgb Hct MCV MCH MCHC RDW Plt Count MPV pO2 VBG pH VBG pCO2 VBG HCO3 VBG O2 Sat (Calc) VBG Base Excess Sodium Potassium Chloride Carbon Dioxide Anion Gap BUN Creatinine Est GFR ( Amer) Est GFR (Non-Af Amer) POC Glucose (mg/dL) 260 H 170 H Random Glucose Calcium Total Bilirubin AST ALT Alkaline Phosphatase Total Protein Albumin Globulin Albumin/Globulin Ratio Assessment & Plan - Assessment and Plan (Free Text) Assessment: Patient is a 43yo female with PMHx significant for ucnontrolled DM type 1 complicated by gastroparesis, PUD, HTN who presents to the hospital with nausea , vomiting and hyperglycemia since discharge two days ago. 1. Nausea and vomiting 2. Diabetic gastroparesis 3. Uncontrolled DM Plan: -Continue supportive care with antiemetics as ordered -Recommend avoiding opiates and narcotics as possible given h/o constipation and effect on GI motility -Tight glycemic control, BG 400-500s, pt may not be taking insulin at home because BG controlled when in hospital -IVF/electrolyte replacement as necessary -Liquid diet and advance as tolerated to goal of 6 small meals per day, low fat/ fiber -Can consider prokinetic agents if symptoms do not improve - RegFausto whatley -No plan for GI intervention -Will sign off <Yamileth Be - Last Filed: 05/05/18 15:32> Meds - Medications Medications: Current Medications Amlodipine Besylate (Norvasc) 5 mg PO DAILY [facility] Last Admin: 05/05/18 10:51 Dose: 5 mg Docusate Sodium (Colace) 100 mg PO BID [facility] Last Admin: 05/05/18 10:49 Dose: 100 mg Pantoprazole Sodium (Protonix 40mg Ivpb) 40 mg in 100 mls @ 200 mls/hr IVPB 0600 [facility] Last Admin: 05/05/18 05:36 Dose: 200 mls/hr Sodium Chloride (Sodium Chloride 0.45%) 1,000 mls @ 150 mls/hr IV .Q6H40M [facility] Insulin Detemir (Levemir) 20 unit SC Q12H [facility] Last Admin: 05/05/18 10:50 Dose: 20 units Insulin Human Lispro (Humalog Low) 0 units SC ACHS [facility] PRN Reason: Protocol Last Admin: 05/05/18 12:30 Dose: 1 unit Ketorolac Tromethamine (Toradol) 30 mg IVP Q6H PRN PRN Reason: Pain, moderate (4-7) Lorazepam (Ativan) 0.5 mg PO BID [facility] PRN Reason: Protocol Last Admin: 05/05/18 10:51 Dose: 0.5 mg Metoprolol Tartrate (Lopressor) 25 mg PO BID [facility] Last Admin: 05/05/18 10:51 Dose: 25 mg Ondansetron HCl (Zofran Inj) 4 mg IVP Q4H PRN PRN Reason: Nausea/Vomiting Last Admin: 05/04/18 18:56 Dose: 4 mg Potassium Chloride (K-Dur 20 Meq Er Tab) 20 meq PO DAILY [facility] Last Admin: 05/05/18 10:50 Dose: 20 meq Sucralfate (Carafate Tab) 1 gm PO BID [facility] Last Admin: 05/05/18 10:51 Dose: 1 gm Results - Vital Signs Recent Vital Signs: Last Vital Signs Temp 99.9 F H 05/05/18 14:16 Pulse 104 H 05/05/18 14:16 Resp 18 05/05/18 14:16 BP 118/75 05/05/18 14:16 Pulse Ox 100 05/05/18 14:16 - Labs Result Diagrams: 05/05/18 07:35 05/05/18 07:35 Labs: Laboratory Results - last 24 hr 05/04/18 05/04/18 05/04/18 21:52 22:25 22:25 WBC RBC Hgb Hct MCV MCH MCHC RDW Plt Count MPV pO2 49 VBG pH 7.15 L* VBG pCO2 23.0 L VBG HCO3 8.0 L VBG O2 Sat (Calc) 82.9 H VBG Base Excess -19.1 L Sodium 141 Potassium 4.7 Chloride 105 Carbon Dioxide 7 L D Anion Gap 34 H BUN 28 H Creatinine 1.2 Est GFR ( Amer) 60 Est GFR (Non-Af Amer) 50 POC Glucose (mg/dL) 271 H Random Glucose 343 H* D Calcium 9.1 Total Bilirubin AST ALT Alkaline Phosphatase Total Protein Albumin Globulin Albumin/Globulin Ratio 05/05/18 05/05/18 05/05/18 05:40 06:27 07:22 WBC RBC Hgb Hct MCV MCH MCHC RDW Plt Count MPV pO2 VBG pH VBG pCO2 VBG HCO3 VBG O2 Sat (Calc) VBG Base Excess Sodium Potassium Chloride Carbon Dioxide Anion Gap BUN Creatinine Est GFR ( Amer) Est GFR (Non-Af Amer) POC Glucose (mg/dL) 414 H* 401 H* 412 H* Random Glucose Calcium Total Bilirubin AST ALT Alkaline Phosphatase Total Protein Albumin Globulin Albumin/Globulin Ratio 05/05/18 05/05/18 05/05/18 07:35 07:35 09:24 WBC 11.0 RBC 4.88 Hgb 13.2 Hct 41.4 MCV 84.8 D MCH 27.0 MCHC 31.9 RDW 17.1 H Plt Count 268 MPV 9.4 pO2 VBG pH VBG pCO2 VBG HCO3 VBG O2 Sat (Calc) VBG Base Excess Sodium 138 Potassium 5.5 H Chloride 105 Carbon Dioxide < 5 L D Anion Gap 34 H BUN 33 H Creatinine 1.3 H Est GFR ( Amer) 55 Est GFR (Non-Af Amer) 45 POC Glucose (mg/dL) 324 H Random Glucose 499 H* D Calcium 9.1 Total Bilirubin 0.8 AST 18 ALT 40 Alkaline Phosphatase 102 Total Protein 8.0 Albumin 4.6 Globulin 3.4 Albumin/Globulin Ratio 1.4 05/05/18 05/05/18 10:18 11:44 WBC RBC Hgb Hct MCV MCH MCHC RDW Plt Count MPV pO2 VBG pH VBG pCO2 VBG HCO3 VBG O2 Sat (Calc) VBG Base Excess Sodium Potassium Chloride Carbon Dioxide Anion Gap BUN Creatinine Est GFR ( Amer) Est GFR (Non-Af Amer) POC Glucose (mg/dL) 260 H 170 H Random Glucose Calcium Total Bilirubin AST ALT Alkaline Phosphatase Total Protein Albumin Globulin Albumin/Globulin Ratio Attending/Attestation - Attestation I have personally seen and examined this patient.: Yes I have fully participated in the care of the patient.: Yes I have reviewed all pertinent clinical information: Yes Notes (Text): 05/05/18 15:31 Patient seen at bedside with GI fellow. This is a 42 year old female with h/o DMI and gastroparesis admitted with acute exacerbation. Tight glycemic control and Small frequent meals. Avoid opioids and narcotics. Drug seeking behavior. Start stool softeners. Hydration and electrolyte replacement. No further GI intervention. Will sign off. Thank you for letting us participate in the care of your patient
[2018-05-05] MEDS ORDERED: Sodium Chloride 0.45% 1,000 ML IV SCH (14:30)
[2018-05-05] MEDS ORDERED: Dextrose 50% SYRINGE Inj (50 ml) ONE (16:39)
--- NOTE | 2018-05-05 18:02 | PN ---
DATE: 05/05/2018 SUBJECTIVE: I saw her resting comfortably in bed. She was actually sleeping. Last time, she had a pain shot was very earlier this morning. I am going to stop the morphine, just give her Toradol. She still does not feel well enough to go home. We will keep her one more day. Awaiting for GI, Cardiology, and Endocrinology to see her. I am increasing her diet. She is currently on IV fluids, Ativan, Carafate, Colace, insulin coverage, potassium, Levemir, Lopressor, Norvasc, Protonix, Toradol, and Samy as needed. OBJECTIVE: VITAL SIGNS: She has a 97.7 temperature, 87 pulse, 152/87 blood pressure, 20 respiratory rate, and 100% O2 saturation on room air. HEENT: Head is atraumatic and normocephalic. HEART: Regular rate. LUNGS: Decreased breath sounds, but clear. ABDOMEN: Soft, nontender. Positive bowel sounds. No guarding. No rebound. EXTREMITIES: No edema. LABORATORY DATA: She has a 138 sodium, potassium 5.5, I will give her Kayexalate today. BUN 33, creatinine 1.3, a little elevated. Last blood sugar was 170. Calcium is 9.1. Total bilirubin is 0.8, AST is 18, ALT is 40, and alkaline phosphatase 102. White count 7, hemoglobin 13.2, hematocrit 41.4, platelets of 268. Awaiting to see of those consults, will see her GI, Cardiology, and Endocrinology. We are still going to keep her on observation and increase her diet. Continue with IV fluids. Give her Kayexalate. She has intractable nausea, vomiting, intractable abdominal pain, this was the second time in about 2 week. She has gastroparesis. She is noncompliant, diabetic. David Theodore DO
[2018-05-05] MEDS: Dextrose 5%/0.45% NS 1,000 ML IV SCH (21:23)
--- NOTE | 2018-05-05 21:45 | CON ---
DATE: ENDOCRINOLOGY CONSULTATION LOCATION: In room 578. HISTORY OF PRESENT ILLNESS: This is a 43-year-old female, admitted with sudden onset of palpitations and supervening precordial chest pain and is now being referred for diabetic evaluation and management. PAST MEDICAL HISTORY: As mentioned above, history of type 1 insulin-dependent diabetes on a combination of Humalog given as 5 units t.i.d. with meals and Levemir at 30 units subcu at bedtime daily as given. History of hypertension and dyslipidemia, history of diabetic retinopathy and polyneuropathy with underlying diabetic gastroparesis. She also has early diabetic nephropathy as noted. She has had recurrent and multiple admissions for diabetic gastroparesis with intractable nausea, dyspepsia, and vomiting episodes as noted. 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 FAMILY HISTORY: Positive for diabetes and hypertension. SOCIAL HISTORY: Patient has supportive family. No known substance use. REVIEW OF SYSTEMS: Admits to generalized body weakness with easy fatigability and tiredness and suboptimal energy level with bifrontal headaches and episodic dizziness and lightheadedness, worse on the day of admission. Admits to sudden onset of precordial chest pain with supervening palpitations and shortness of breath prompting this admission. Her oral intake has been variable with nausea, dyspepsia, and vague upper abdominal pain with intractable vomiting episodes on the day of admission. Also admits to marked polyuria, nocturia, polydipsia as noted. PHYSICAL EXAMINATION: GENERAL: This is an average-built female, in no apparent distress. VITAL SIGNS: Blood pressure of 140/80, pulse of 70 beats per minute and regular, temperature 98, respirations 20, height is 5 feet 9 inches, weight is 160 pounds. HEENT: Head: Normocephalic. Eyes: Anicteric with pink conjunctivae. Funduscopy not possible at this time. Ears, nose and throat, otherwise normal. NECK: Supple. Thyroid gland is normal in size. No carotid bruits or any cervical adenopathy. CARDIOPULMONARY: Some adynamic precordium. S1, S2 is rapid and regular. LUNGS: Clear to auscultation. ABDOMEN: Flat, soft with positive bowel sounds. EXTREMITIES: No peripheral edema. Pulses are +2 bilaterally. LABORATORY DATA: Chemistries showed a BUN of 33, sodium 138, potassium 5.5, chloride 105, CO2 less than 5, glucose 499, and creatinine 1.3. Her glucose levels have ranged from 170 to 324 mg/dL. ASSESSMENT: This is a 43-year-old female with uncontrolled and decompensated type 1 insulin-dependent diabetes, presenting here with precordial chest pain and palpitations and is now being referred for Cardiology for closer cardiac evaluation and management. Biochemically, she also has diabetic ketoacidosis and dehydration as noted with today's laboratory findings. She also has diabetic microvascular complications of retinopathy, polyneuropathy, and nephropathy. PLAN OF MANAGEMENT: We will modify her IV hydration to a more vigorous IV fluid infusion with normal saline to run at 150 mL/hour as ordered. We will obtain serial chemistries and supplement accordingly as needed. We will also obtain a hemoglobin A1c to confirm her prior glycemic control and baseline thyroid function studies will be ordered. We will obtain serial chemistries and supplement accordingly as needed. We will also titrate her basal insulin to Levemir given as 20 units subcu every 12 hours at 10 a.m. and 10 p.m. daily as ordered. We will modify her coverage scale to a low-dose algorithm using Humalog insulin as the patient is actually n.p.o. at this time. We will follow with you. Tamara Campo MD
--- NOTE | 2018-05-06 02:13 | CP.PCM.PN ---
Subjective - Date & Time of Evaluation Date of Evaluation: 05/06/18 Time of Evaluation: 02:10 - Subjective Subjective: S: Nurse calls and tells that patient is complaining of pain, toradol is not due until 1:30 AM. I had ordered stat toradol (12:00) I went to see patient at 2:00 AM. She is comfortably sleeping now. Medical record was reviewed. O: Last Vital Signs 3 Temp 98.9 F 05/05/18 22:15 Pulse 91 H 05/05/18 22:15 Resp 18 05/05/18 22:15 BP 136/83 05/05/18 22:15 Pulse Ox 100 05/05/18 22:15 Stable , not in distress. LUNGS: Normal breathing pattern. A:Chest Pain/Abdominal pain. P: Toradol 30 mg IV stat. Objective - Vital Signs/Intake and Output Vital Signs (last 24 hours): Temp Pulse Resp BP Pulse Ox 98.9 F 91 H 18 136/83 100 05/05/18 22:15 05/05/18 22:15 05/05/18 22:15 05/05/18 22:15 05/05/18 22:15 Intake and Output: 05/05/18 05/06/18 18:59 06:59 Intake Total 1200 Balance 1200 - Medications Medications: Current Medications Amlodipine Besylate (Norvasc) 5 mg PO DAILY [facility] Last Admin: 05/05/18 10:51 Dose: 5 mg Docusate Sodium (Colace) 100 mg PO BID [facility] Last Admin: 05/05/18 18:52 Dose: Not Given Pantoprazole Sodium (Protonix 40mg Ivpb) 40 mg in 100 mls @ 200 mls/hr IVPB 0600 [facility] Last Admin: 05/05/18 05:36 Dose: 200 mls/hr Dextrose/Sodium Chloride (Dextrose 5%/0.45% Ns 1000 Ml) 1,000 mls @ 150 mls/hr IV .Q6H40M [facility] Last Admin: 05/05/18 21:23 Dose: 150 mls/hr Insulin Detemir (Levemir) 14 unit SC HS [facility] Insulin Human Lispro (Humalog) 6 units SC AC [facility] Insulin Human Lispro (Humalog Low) 0 units SC ACHS [facility] PRN Reason: Protocol Ketorolac Tromethamine (Toradol) 30 mg IVP Q6 PRN PRN Reason: Pain, moderate (4-7) Last Admin: 05/06/18 00:06 Dose: 30 mg Lorazepam (Ativan) 0.5 mg PO BID [facility] PRN Reason: Protocol Last Admin: 05/05/18 17:30 Dose: 0.5 mg Metoprolol Tartrate (Lopressor) 25 mg PO BID [facility] Last Admin: 05/05/18 17:30 Dose: 25 mg Ondansetron HCl (Zofran Inj) 4 mg IVP Q4H PRN PRN Reason: Nausea/Vomiting Last Admin: 05/04/18 18:56 Dose: 4 mg Potassium Chloride (K-Dur 20 Meq Er Tab) 20 meq PO DAILY [facility] Last Admin: 05/05/18 10:50 Dose: 20 meq Sucralfate (Carafate Tab) 1 gm PO BID [facility] Last Admin: 05/05/18 17:30 Dose: 1 gm - Labs Labs: 05/05/18 07:35 05/05/18 07:35
[2018-05-06] MEDS: Dextrose 5%/0.45% NS 1,000 ML IV SCH ×2 (02:20→09:31)
[2018-05-06] MEDS: Pantoprazole 40mg/100mL NS 40 MG/100 ML BAG IVPB SCH (05:30)
[2018-05-06 07:18] LABS: HEMOGLOBIN 10.2 g/dL (12.0-16.0); MEAN CELL VOLUME 78.1 fl (80.0-105.0); MEAN CORPUSCULAR HEMOGLOBIN 26.6 pg (25.0-35.0); MEAN PLATELET VOLUME 8.6 fl (7.0-11.0); RBC 3.84 10^6/uL (3.5-6.1); RED CELL DISTRIBUTION WIDTH 16.3 % (11.5-14.5); WHITE BLOOD COUNT 6.1 10^3/ul (4.5-11.0)
[2018-05-06] MEDS ORDERED: Insulin Lispro 1 UNITS/0.01 ML SC SCH (07:30)
[2018-05-06 07:38] LABS: ALB/GLOB RATIO 1.1 (1.1-1.8); ALBUMIN 3.3 g/dL (3.0-4.8); ALT/SGPT 34 U/L (7-56); AST/SGOT 12 U/L (14-36); BLOOD UREA NITROGEN 18 mg/dL (7-21); CALCIUM 8.2 mg/dL (8.4-10.5); GFR AFRICAN-AMERICAN > 60; GFR NON-AFRICAN AMERICAN > 60; HDL CHOLESTEROL 84 mg/dL (29-60); LIPASE 17 U/L (23-300)
[2018-05-06 07:40] LABS: LDL CHOLESTEROL 106 mg/dL (0-129)
--- NOTE | 2018-05-06 07:52 | CP.PCM.PN ---
Subjective - Date & Time of Evaluation Date of Evaluation: 05/06/18 Time of Evaluation: 07:48 - Subjective Subjective: pgy-[address] Theodore CC: stomach pain examined pt who c/o epigastric pain subxiphoid. denies n/v, diaphoresis, numbness/tingling. VSS GEN: NAD HEENT: EOMI, non-icteric Card: regular S1 S2 Pulm: CTA b/l Abd: reproducible epigastric tenderness upon palpation. non-distended. BS normal. no gupta, no rovsing, no mcburney Ext: no edema A/P: Epigastric pain 2/2 GERD due to Diabetic gastroparesis secondary to Uncontrolled DM - Sit upright before and after meal - Change to carafate solution before meal and HS. Pt refused the tablet Objective - Vital Signs/Intake and Output Vital Signs (last 24 hours): Temp Pulse Resp BP Pulse Ox 97.8 F 90 20 112/62 99 05/06/18 07:45 05/06/18 07:45 05/06/18 07:45 05/06/18 07:45 05/06/18 07:45 Intake and Output: 05/06/18 05/06/18 06:59 18:59 Intake Total 240 Balance 240 - Medications Medications: Current Medications Amlodipine Besylate (Norvasc) 5 mg PO DAILY [facility] Last Admin: 05/05/18 10:51 Dose: 5 mg Docusate Sodium (Colace) 100 mg PO BID [facility] Last Admin: 05/05/18 18:52 Dose: Not Given Pantoprazole Sodium (Protonix 40mg Ivpb) 40 mg in 100 mls @ 200 mls/hr IVPB 0600 [facility] Last Admin: 05/06/18 05:30 Dose: 200 mls/hr Dextrose/Sodium Chloride (Dextrose 5%/0.45% Ns 1000 Ml) 1,000 mls @ 150 mls/hr IV .Q6H40M [facility] Last Admin: 05/06/18 02:20 Dose: Not Given Insulin Detemir (Levemir) 14 unit SC HS [facility] Insulin Human Lispro (Humalog) 6 units SC AC [facility] Insulin Human Lispro (Humalog Low) 0 units SC ACHS [facility] PRN Reason: Protocol Ketorolac Tromethamine (Toradol) 30 mg IVP Q6 PRN PRN Reason: Pain, moderate (4-7) Last Admin: 05/06/18 00:06 Dose: 30 mg Lorazepam (Ativan) 0.5 mg PO BID [facility] PRN Reason: Protocol Last Admin: 05/05/18 17:30 Dose: 0.5 mg Metoprolol Tartrate (Lopressor) 25 mg PO BID [facility] Last Admin: 05/05/18 17:30 Dose: 25 mg Ondansetron HCl (Zofran Inj) 4 mg IVP Q4H PRN PRN Reason: Nausea/Vomiting Last Admin: 05/04/18 18:56 Dose: 4 mg Potassium Chloride (K-Dur 20 Meq Er Tab) 20 meq PO DAILY [facility] Last Admin: 05/05/18 10:50 Dose: 20 meq Sucralfate (Carafate Tab) 1 gm PO BID [facility] Last Admin: 05/05/18 17:30 Dose: 1 gm - Labs Labs: 05/06/18 06:45 05/06/18 06:45
[2018-05-06] MEDS: Insulin Lispro (humaLOG) LOW Coverage SC SCH ×4 (08:13→22:29)
[2018-05-06] MEDS: Potassium Chloride 20 mEq ER Tab PO SCH (09:32)
[2018-05-06] MEDS: Sucralfate 1 gm/10 ml Oral Susp UD PO SCH ×4 (12:28→22:29)
[2018-05-06] MEDS: Insulin Lispro 1 UNITS/0.01 ML SC SCH ×2 (12:30→16:27)
[2018-05-06] MEDS ORDERED: Morphine 2 mg/ml ISec IVP PRN (13:44)
--- NOTE | 2018-05-06 14:25 | PN ---
DATE: 05/06/2018 ENDO FOLLOWUP NOTE LOCATION: In room 578. SUBJECTIVE: This is a 43-year-old female with recent uncontrolled type 1 insulin-dependent diabetes, presenting here with marked hyperglycemic accelerations and concomitant intractable vomiting and abdominal pain and has and is now being followed closely for metabolic management. Her glycemic levels are fluctuating, but improved and the glucose levels overnight have ranged from 125-290 mg/dL. Her latest chemistry showed a BUN of 18, sodium 133, potassium 3.4, chloride 106, CO2 of 17, glucose 222 and creatinine 0.9. So at this time, we will modify once again her basal and bolus insulin regimen and increase the Levemir to 20 units subcu at bedtime daily and increase the Humalog to 8 units subcu t.i.d. before meals to start today as ordered. We will continue the low-dose correction scale using Humalog insulin as given. We will obtain serial chemistries and supplement accordingly as needed. We will follow. Tamara Campo MD
[2018-05-06] MEDS: Sodium Chloride 0.9% 1,000 ML IV SCH (16:38)
--- NOTE | 2018-05-06 17:45 | PN ---
DATE: 05/06/2018 SUBJECTIVE: I increased her diet yesterday hoping that she would be able to eat and go home, but she threw up her breakfast. She is not feeling well. She is writhing in bed in abdominal pain. The Toradol is not working for her. I am going to have to increase her to morphine and I am going to make her an inpatient. She is on Ativan, Benadryl, Carafate, insulin, potassium replacement, Levemir, Lopressor, metoprolol, morphine now, Norvasc, pantoprazole, IV fluids, going to stop Toradol as it made her feel worse, and Zofran. PHYSICAL EXAMINATION: VITAL SIGNS: She has 97.8 temperature, 90 pulse, 112/62 blood pressure, 20 respiratory rate, 99% O2 sat on room air. HEENT: Head is atraumatic, normocephalic. HEART: Regular rate. LUNGS: Decreased breath sounds, but clear. ABDOMEN: Mildly distended, discomfort to palpation. No guarding, no rebound, no bowel sounds I could hear. EXTREMITIES: No edema. LABORATORY DATA: She has a 6.1 white count, 10.2 hemoglobin, 30 hematocrit, 233 platelets. Sodium 133, potassium 3.4, I will give her some potassium, BUN 8, creatinine 0.9, GFR is greater than 60, sugar is 134, calcium is 8.2, total bilirubin is 0.7, AST is 12, ALT is 34, alkaline phosphatase is 81, total protein 6.3, albumin is 3.3, globulin is 3. So, I changed her to an inpatient today, put her on some morphine, decreased her to clear fluids and she is here for severe abdominal pain, intractable nausea, vomiting, probably gastroparesis. David Theodore DO
[2018-05-06] MEDS ORDERED: Insulin Detemir 100 units/ml Vial (Levemir) SC SCH ×2 (22:00)
--- NOTE | 2018-05-06 22:56 | CON ---
DATE: 05/06/2018 CARDIOLOGY CONSULTATION HISTORY OF PRESENT ILLNESS: The patient is a 43-year-old woman with recurrent admissions for nausea secondary to gastric paresis. The patient has had intermittent tachycardia secondary to her diabetes as well as her GI symptomatology. The patient has had cardiac workup in the past including an echocardiogram performed about one year ago which showed normal LV function. The patient denies angina, no shortness of breath. SOCIAL HISTORY: Denies smoking. REVIEW OF SYSTEMS: A 14 point review of systems was reviewed in detail. Fatigue, nausea and abdominal pain is her predominant symptoms. PHYSICAL EXAMINATION: VITAL SIGNS: Blood pressure is 120/64, heart rate in the 90s, normal sinus rhythm. NECK: Negative JVD. LUNGS: Without rales. HEART: With S1, S2. EXTREMITIES: Without edema. LABORATORY DATA: EKG is unremarkable. Glucose is 221. Hemoglobin is 10.2. IMPRESSION: 1. Nausea and vomiting secondary to . 2. Gastroparesis. 3. Diabetes mellitus. 4. Anemia. 5. Hypercholesterolemia. PLAN: Given these findings, there is no active cardiac issues. We will sign off the case today. Jim Field MD
[2018-05-07] MEDS: Sucralfate 1 gm/10 ml Oral Susp UD PO SCH ×5 (04:54→21:50)
[2018-05-07] MEDS: Pantoprazole 40mg/100mL NS 40 MG/100 ML BAG IVPB SCH ×2 (04:55→05:28)
[2018-05-07] MEDS ORDERED: Insulin Regular 1 UNITS/0.01 ML ML SC STA (06:05)
--- NOTE | 2018-05-07 06:14 | CP.PCM.PN ---
Subjective - Date & Time of Evaluation Date of Evaluation: 05/07/18 Time of Evaluation: 06:14 - Subjective Subjective: draft fsbs 430 mg % rx, r ins 6 u sc stat. Objective - Vital Signs/Intake and Output Vital Signs (last 24 hours): Temp Pulse Resp BP Pulse Ox 98.2 F 93 H 18 106/56 L 99 05/06/18 21:49 05/06/18 21:49 05/06/18 21:49 05/06/18 21:49 05/06/18 21:49 Intake and Output: 05/06/18 05/07/18 18:59 06:59 Intake Total 940 1065 Output Total 0 Balance 940 1065 - Medications Medications: Current Medications Amlodipine Besylate (Norvasc) 5 mg PO DAILY [facility] Last Admin: 05/06/18 09:33 Dose: 5 mg Docusate Sodium (Colace) 100 mg PO BID [facility] Last Admin: 05/06/18 18:04 Dose: 100 mg Pantoprazole Sodium (Protonix 40mg Ivpb) 40 mg in 100 mls @ 200 mls/hr IVPB 0600 [facility] Last Admin: 05/07/18 05:28 Dose: Not Given Sodium Chloride (Sodium Chloride 0.9%) 1,000 mls @ 100 mls/hr IV .Q10H [facility] Last Admin: 05/06/18 16:38 Dose: 100 mls/hr Insulin Detemir (Levemir) 20 unit SC HS [facility] Last Admin: 05/06/18 22:30 Dose: 20 unit Insulin Human Lispro (Humalog Low) 0 units SC ACHS [facility] PRN Reason: Protocol Last Admin: 05/06/18 22:29 Dose: Not Given Insulin Human Lispro (Humalog) 8 units SC AC [facility] Last Admin: 05/06/18 16:27 Dose: 8 unit Ketorolac Tromethamine (Toradol) 30 mg IVP Q6 PRN PRN Reason: Pain, moderate (4-7) Last Admin: 05/07/18 04:54 Dose: 30 mg Lorazepam (Ativan) 0.5 mg PO BID [facility] PRN Reason: Protocol Last Admin: 05/06/18 18:04 Dose: 0.5 mg Metoprolol Tartrate (Lopressor) 25 mg PO BID [facility] Last Admin: 05/06/18 18:04 Dose: 25 mg Morphine Sulfate (Morphine) 1 mg IVP Q3H PRN PRN Reason: Pain, moderate (4-7) Ondansetron HCl (Zofran Inj) 4 mg IVP Q4H PRN PRN Reason: Nausea/Vomiting Last Admin: 05/06/18 16:39 Dose: 4 mg Potassium Chloride (K-Dur 20 Meq Er Tab) 20 meq PO DAILY [facility] Last Admin: 05/06/18 09:32 Dose: 20 meq Sucralfate (Carafate Oral Susp) 1 gm PO 0630,1130,1630,2200 [facility] Last Admin: 05/07/18 05:29 Dose: Not Given - Labs Labs: 05/06/18 06:45 05/06/18 06:45
[2018-05-07 07:26] LABS: MEAN CELL VOLUME 78.1 fl (80.0-105.0); MEAN CORPUSCULAR HEMOGLOBIN 26.4 pg (25.0-35.0); MEAN CORPUSCULAR HGB CONC 33.8 g/dl (31.0-37.0); MEAN PLATELET VOLUME 9.2 fl (7.0-11.0); RBC 4.16 10^6/uL (3.5-6.1); RED CELL DISTRIBUTION WIDTH 16.7 % (11.5-14.5); WHITE BLOOD COUNT 5.7 10^3/ul (4.5-11.0)
[2018-05-07 07:47] LABS: ALB/GLOB RATIO 1.1 (1.1-1.8); ALBUMIN 3.6 g/dL (3.0-4.8); ALT/SGPT 30 U/L (7-56); AST/SGOT 18 U/L (14-36); BLOOD UREA NITROGEN 18 mg/dL (7-21); CALCIUM 8.5 mg/dL (8.4-10.5); GFR AFRICAN-AMERICAN > 60; GFR NON-AFRICAN AMERICAN > 60
[2018-05-07] MEDS: Insulin Lispro (humaLOG) LOW Coverage SC SCH ×2 (08:01→21:51)
[2018-05-07] MEDS: Insulin Lispro 1 UNITS/0.01 ML SC SCH (08:02)
--- NOTE | 2018-05-07 09:39 | PN ---
DATE: 05/07/2018 SUBJECTIVE: I saw Shanelle this morning. She threw up her breakfast. She is only on Clears. She is not in as much pain as yesterday so I stopped the morphine, I put her on some Motrin. I made her an inpatient yesterday because she had 2 days of intractable nausea, vomiting, abdominal pain. OBJECTIVE: VITAL SIGNS: She has a 98.2 temperature, 93 pulse, 106/56 blood pressure, 18 respiratory rate, 97% O2 saturation on room air. HEENT: Head is atraumatic, normocephalic. HEART: Regular rate. LUNGS: Decreased breath sounds. ABDOMEN: Distended a little bit, decreased bowel sounds. No guarding, no rebound. EXTREMITIES: Have no edema. DATA: She has a 5.7 white count, 11 hemoglobin, 32.5 hematocrit with 253 platelets. She has a 134 sodium, potassium 3.7, BUN 18, creatinine 0.9. GFR is greater than 60. Sugar has been as high as 447 now, it is down to 332. Calcium is 8.5, total bili is 0.5, AST is 18, ALT is 30, alkaline phosphatase 101, total protein is 6.8. She is being seen by Cardiology, Endocrinology and GI. GI has not seen her since Monday. I need GI back on the case for their opinion of her persistent nausea, vomiting, intractable abdominal pain, gastroparesis and elevated blood sugars. Also, need Endocrinology to help us with tighter control of her blood sugars. She is on a liquid diet, but she is throwing it up. Continue with aggressive treatment and care on Shanelle Mancini. David Theodore DO
[2018-05-07] MEDS: Potassium Chloride 20 mEq ER Tab PO SCH (10:32)
--- NOTE | 2018-05-07 14:20 | PN ---
DATE: 05/07/2018 ENDO FOLLOWUP NOTE LOCATION: In room 578. SUBJECTIVE: This is a 43-year-old female with recent uncontrolled type 1 insulin-dependent diabetes, presenting here with intractable vomiting episodes with underlying diabetic gastroparesis and supervening diffuse abdominal pain and is now being followed closely for metabolic management. Her oral intake remains quite variable with suboptimal meal portions as noted. Her glucose levels today have ranged from 71-332 mg/dL. Her latest chemistry showed a BUN of 18, sodium 134, potassium 3.7, chloride 104, CO2 of 21, glucose 447 and creatinine 0.9. ASSESSMENT: This is a 43-year-old female with recent uncontrolled type 1 insulin-dependent diabetes with extremely labile glycemic profile related to the variability of her oral intake with underlying diabetic microvascular complications of retinopathy and polyneuropathy with severe autonomic neuropathy with diabetic gastroparesis as noted thereof. PLAN OF MANAGEMENT: As discussed with the patient and the staff, we will modify once again her basal and bolus insulin regimen to optimize metabolic control and also to adjust the variability of her oral intake as noted thereof. We will increase the Levemir to 30 units at bedtime daily given as basal insulin to start tonight as ordered. We will also continue the modified low-dose correction scale using Humalog insulin as given. We will also lower the Humalog down to 6 units subcu t.i.d. before meals to start at dinnertime today as ordered. We will obtain serial chemistries and supplement accordingly as needed. We will follow. Tamara Campo MD
--- NOTE | 2018-05-07 15:59 | PN ---
DATE: 05/07/2018 CARDIOLOGY FOLLOWUP SUBJECTIVE: The patient continued to be nauseous. She was unable to hold her breakfast down. PHYSICAL EXAMINATION: VITAL SIGNS: Blood pressure was 132/74, heart rate is in the 90s. NECK: Negative JVD. LUNGS: Without rales. HEART: Reveals S1, S2. EXTREMITIES: Without edema. LABORATORY DATA: Hemoglobin is 11. Chemistries: Glucose is 447. IMPRESSION: 1. Diabetes out of control. 2. Gastroparesis. 3. Nausea and vomiting. 4. Anemia. PLAN: Given these findings, there are no acute cardiac issues at this time. Her tachycardia is secondary to her GI symptomatology. Jim Field MD
[2018-05-07] MEDS ORDERED: Insulin Detemir 100 units/ml Vial (Levemir) SC SCH (22:00)
[2018-05-08] MEDS: Sucralfate 1 gm/10 ml Oral Susp UD PO SCH ×3 (05:29→16:32)
[2018-05-08] MEDS: Pantoprazole 40mg/100mL NS 40 MG/100 ML BAG IVPB SCH (05:29)
[2018-05-08] MEDS: Sodium Chloride 0.9% 1,000 ML IV SCH ×3 (05:30→11:53)
--- NOTE | 2018-05-08 07:29 | CP.PCM.PN ---
<LarissadimasstephanieJose Angel - Last Filed: 05/08/18 15:35> Subjective - Date & Time of Evaluation Date of Evaluation: 05/08/18 Time of Evaluation: 07:10 - Subjective Subjective: PGY5 GI Fellow Progress Note Reconsulted on this patient due to persistence of abdominal pain, nausea and vomiting. The patient has not been witnessed to be vomiting but has been spitting out saliva/sputum and spitting liquids from her food trays in to bedside basin. She has been demanding in regards to narcotic pain medications, even threatening staff last night. Presently, she continues to endorse diffuse abdominal pain with radiation to the back along with ongoing nausea. 12 system ROS performed and negative except where stated. Objective - Vital Signs/Intake and Output Vital Signs (last 24 hours): Temp Pulse Resp BP Pulse Ox 98.5 F 95 H 18 139/85 100 05/07/18 14:00 05/07/18 18:18 05/07/18 14:00 05/07/18 18:18 05/07/18 14:00 Intake and Output: 05/08/18 05/08/18 06:59 18:59 Intake Total 0 Balance 0 - Medications Medications: Current Medications Amlodipine Besylate (Norvasc) 5 mg PO DAILY [facility] Last Admin: 05/07/18 10:31 Dose: 5 mg Docusate Sodium (Colace) 100 mg PO BID [facility] Last Admin: 05/07/18 18:18 Dose: 100 mg Pantoprazole Sodium (Protonix 40mg Ivpb) 40 mg in 100 mls @ 200 mls/hr IVPB 0600 [facility] Last Admin: 05/08/18 05:29 Dose: 200 mls/hr Sodium Chloride (Sodium Chloride 0.9%) 1,000 mls @ 100 mls/hr IV .Q10H [facility] Last Admin: 05/08/18 05:31 Dose: Not Given Ibuprofen (Motrin Tab) 600 mg PO Q6H PRN PRN Reason: Pain, moderate (4-7) Last Admin: 05/07/18 20:14 Dose: 600 mg Insulin Detemir (Levemir) 30 unit SC HS [facility] Last Admin: 05/07/18 21:50 Dose: 30 unit Insulin Human Lispro (Humalog Low) 0 units SC ACHS [facility] PRN Reason: Protocol Last Admin: 05/07/18 21:51 Dose: Not Given Insulin Human Lispro (Humalog) 6 units SC [facility] Ketorolac Tromethamine (Toradol) 30 mg IVP Q6H PRN PRN Reason: Pain, moderate (4-7) Last Admin: 05/08/18 03:40 Dose: 30 mg Lorazepam (Ativan) 0.5 mg PO BID [facility] PRN Reason: Protocol Last Admin: 05/07/18 18:18 Dose: 0.5 mg Metoprolol Tartrate (Lopressor) 25 mg PO BID [facility] Last Admin: 05/07/18 18:18 Dose: 25 mg Ondansetron HCl (Zofran Inj) 4 mg IVP Q8 PRN PRN Reason: Nausea/Vomiting Last Admin: 05/07/18 20:15 Dose: 4 mg Potassium Chloride (K-Dur 20 Meq Er Tab) 20 meq PO DAILY [facility] Last Admin: 05/07/18 10:32 Dose: 20 meq Sucralfate (Carafate Oral Susp) 1 gm PO 0630,1130,1630,2200 [facility] Last Admin: 05/08/18 05:29 Dose: 1 gm - Labs Labs: 05/07/18 07:00 05/07/18 06:45 - Constitutional Appears: Non-toxic, No Acute Distress - Eye Exam Eye Exam: EOMI, PERRL - ENT Exam ENT Exam: Mucous Membranes Moist - Respiratory Exam Respiratory Exam: Clear to Ausculation Bilateral. absent: Rales, Rhonchi, Wheezes - Cardiovascular Exam Cardiovascular Exam: Tachycardia, REGULAR RHYTHM, +S1, +S2 - GI/Abdominal Exam GI & Abdominal Exam: Guarding, Soft, Tenderness (diffusely with minimal palpation). absent: Distended, Firm, Rigid, Organomegaly - Extremities Exam Extremities Exam: Normal Inspection. absent: Pedal Edema - Neurological Exam Neurological Exam: Alert, Awake, Oriented x3 - Psychiatric Exam Psychiatric exam: Anxious - Skin Skin Exam: Dry, Warm Assessment and Plan - Assessment and Plan (Free Text) Assessment: Patient is a 43yo female with PMHx significant for ucnontrolled DM type 1 complicated by gastroparesis, PUD, HTN who presents to the hospital with nausea , vomiting and abdominal pain -Diabetic gastroparesis -Uncontrolled DM Plan: -Drug seeking behavior noted -Avoid opiate narcotics as possible -No plan for endoscopic evaluation at this time -Zofran PRN for nausea/vomiting -States she is NOT allergic to Reglan but was previously told by an outside physician that it would not work for her and thus she refuses it -[place] shortage of Erythromycin and none available in pharmacy for use as prokinetic agent -Tight glycemic control -Patient does not require PPI gtt and should be transitioned to once daily PPI at 40mg PO QAMAC -Diet as tolerated with goal diet of 6 small meals - low fat/fiber <Uzair Trejo - Last Filed: 05/08/18 18:00> Objective - Vital Signs/Intake and Output Vital Signs (last 24 hours): Temp Pulse Resp BP Pulse Ox 98.6 F 105 H 20 165/89 H 98 05/08/18 06:00 05/08/18 09:32 05/08/18 06:00 05/08/18 09:32 05/08/18 06:00 Intake and Output: 05/08/18 05/08/18 06:59 18:59 Intake Total 0 Balance 0 - Labs Labs: 05/08/18 09:20 05/08/18 09:20 Attending/Attestation - Attestation I have personally seen and examined this patient.: Yes I have fully participated in the care of the patient.: Yes I have reviewed all pertinent clinical information, including history, physical exam and plan: Yes Notes (Text): 05/08/18 17:59 43 year old female with h/o gastroparesis a/w exacerbation. Suspect narcotic addiction and drug seeking behavior may be contributing to her clinical presentation. Advance diet as tolerated to low fat / small freq meals. Minimize narcotics. Ok for discharge.
[2018-05-08] MEDS: Insulin Lispro 1 UNITS/0.01 ML SC SCH ×3 (07:33→16:29)
[2018-05-08] MEDS: Insulin Lispro (humaLOG) LOW Coverage SC SCH ×3 (07:33→16:29)
[2018-05-08 08:33] VITALS: RESP 20; TEMP 98.6; O2SAT 98
[2018-05-08] MEDS: Potassium Chloride 20 mEq ER Tab PO SCH (09:32)
[2018-05-08 09:33] LABS: HEMOGLOBIN 11.7 g/dL (12.0-16.0); MEAN CELL VOLUME 77.7 fl (80.0-105.0); MEAN CORPUSCULAR HEMOGLOBIN 26.7 pg (25.0-35.0); MEAN CORPUSCULAR HGB CONC 34.3 g/dl (31.0-37.0); MEAN PLATELET VOLUME 9.5 fl (7.0-11.0); RBC 4.39 10^6/uL (3.5-6.1); RED CELL DISTRIBUTION WIDTH 16.1 % (11.5-14.5); WHITE BLOOD COUNT 4.8 10^3/ul (4.5-11.0)
[2018-05-08 09:44] VITALS: BP 165/89; PULSE 105
[2018-05-08 09:47] LABS: ALB/GLOB RATIO 1.2 (1.1-1.8); ALBUMIN 4.1 g/dL (3.0-4.8); ALT/SGPT 36 U/L (7-56); AST/SGOT 31 U/L (14-36); BLOOD UREA NITROGEN 6 mg/dL (7-21); CALCIUM 8.7 mg/dL (8.4-10.5); GFR AFRICAN-AMERICAN > 60; GFR NON-AFRICAN AMERICAN > 60
--- NOTE | 2018-05-08 13:10 | PN ---
DATE: 05/08/2018 ENDOCRINOLOGY FOLLOWUP NOTE LOCATION: Room 578. SUBJECTIVE: This is a 43-year-old female with recent uncontrolled type 1 insulin-dependent diabetes, presenting here with acute exacerbation of diabetic gastroparesis with intractable vomiting and upper abdominal pain and is now being followed closely for metabolic management. Her oral intake is quite variable with suboptimal meal portions as noted and the glucose values today have ranged from 154-255 mg/dL. Her latest chemistry showed a BUN of 18, sodium 134, potassium 3.7, chloride 104, CO2 of 21, glucose 441 and creatinine 0.9. So at this time, we will modify once again her basal and bolus insulin regimen to allow for dose equilibration and keep her on the Humalog given as 6 units subcu t.i.d. before meals as ordered. We will increase the Levemir to 30 units subcu at bedtime daily to start tonight. We will titrate incrementally as indicated to optimize metabolic control. We will continue also the low-dose correction scale using Humalog insulin as given. We will follow with you. Tamara Campo MD
--- NOTE | 2018-05-09 06:04 | DS ---
HISTORY OF PRESENT ILLNESS: She is resting comfortably in bed. She is showing me a bucket of spit up. She is telling me she is throwing up, it is all mucus and she is asking for pain medications. I am not giving her any pain medications as it messes up the stomach as per GI, just NSAIDs. I am hoping that we can increase her diet this afternoon for regular and then she can go home. She is still telling everybody she is throwing up. I am not giving her any more pain medications at this time. Hopefully, she will eat her lunch and do keep it down and be okay. MEDICATIONS: She is on Ativan, Carafate, Colace, insulin, potassium, Levemir, Lopressor, Motrin, Norvasc, Protonix, Toradol and Zofran. PHYSICAL EXAMINATION: VITAL SIGNS: 98.6 temperature, 100 pulse, 163/91 blood pressure, 139/85 blood pressure, 20 respiratory rate, 90% O2 sat on room air. HEENT: Head is atraumatic, normocephalic. HEART: Regular rate. LUNGS: Decreased breath sounds. ABDOMEN: Soft. Positive bowel sounds. No apparent tenderness. No guarding, no rebound. EXTREMITIES: No edema. LABORATORY DATA: She has a 5.7 white count, 11 hemoglobin, 32.5 hematocrit with 253 platelets. She has a 134 sodium, potassium 3.7, BUN 18, creatinine 0.9. Last blood sugar is 255. Calcium is 8.5, total bili is 0.5, AST is 18, ALT is 30, alk phos total protein 6.8. ASSESSMENT AND PLAN: I am hoping that we can discharge her today after she eats lunch, a regular diet. She has had abdominal pain, gastroparesis, diabetes out of control, nausea, vomiting. Hopefully, will pass. David Theodore DO MTDRuth Ann
== END 2018-05-08 17:54 | disposition home or self-care (01) | DRG 18 ==
LOC: ED 14:02 → ERH 18:19 → 5RSO 20:48 → OBSVTOIN 05-06 13:45
PROVIDERS: ADMIT Family Medicine; ATTEND Family Medicine
DX: E10.43 Type 1 diabetes mellitus with diabetic autonomic (poly)neuropathy (principal); E86.0 Dehydration; K31.84 Gastroparesis; E10.10 Type 1 diabetes mellitus with ketoacidosis without coma; E10.21 Type 1 diabetes mellitus with diabetic nephropathy; E10.319 Type 1 diabetes mellitus with unspecified diabetic retinopathy without macular edema; K21.9 Gastro-esophageal reflux disease without esophagitis; I10 Essential (primary) hypertension; F41.9 Anxiety disorder, unspecified; D64.9 Anemia, unspecified; K29.70 Gastritis, unspecified, without bleeding; E78.00 Pure hypercholesterolemia, unspecified; G47.00 Insomnia, unspecified; R00.2 Palpitations; E78.5 Hyperlipidemia, unspecified; R00.0 Tachycardia, unspecified; Z87.11 Personal history of peptic ulcer disease; Z76.5 Malingerer [conscious simulation]; Z83.3 Family history of diabetes mellitus; Z87.440 Personal history of urinary (tract) infections

== ENCOUNTER 2018-06-03 09:24 | Inpatient (IN) | payer MEDICAID ==
[2018-06-03 09:36] VITALS: BMI 26.3
[2018-06-03] MEDS ORDERED: Sodium Chloride 0.9% 1,000 ML IV STA ×2 (09:37→11:48)
--- NOTE | 2018-06-03 09:37 | ED PDOC ---
Arrival/HPI - General Chief Complaint: GI Problem Time Seen by Provider: 06/03/18 09:25 Historian: Patient, Family - History of Present Illness Narrative History of Present Illness (Text): 06/03/18 09:44 Patient is a 43 yo female past medical history of uncontrolled diabetes, DKA, presents to the Emergency Department with history of chest pain and palpitations with bodyaches, nausea. Reports polyuria and polydipsia. Patient's mother is at bedside and states that "she's been sick all week" but "we didn't want to keep on coming back here". Patient reportedly has "eaten nothing" but "I 've been taking my insulin and they are still running high". Denies shortness of breath. Denies pleuritic discomfort. Time/Duration: 1 week Symptom Onset: Gradual Past Medical History - Past History Past History: No Previous - Infectious Disease Hx of Infectious Diseases: None - Tetanus Immunization Tetanus Immunization: Unknown - Past Medical History Past Medical History: No Previous - Cardiac Hx Cardiac Disorders: Yes Hx Hypertension: Yes - Pulmonary Hx Respiratory Disorders: No - Neurological Hx Neurological Disorder: Yes (NEUROPATHY) - HEENT Hx HEENT Disorder: Yes Other/Comment: wears glasses-nearsighted - Renal Hx Renal Disorder: No - Endocrine/Metabolic Hx Diabetes Mellitus Type 1: Yes (hx DKA) - Hematological/Oncological Hx Anemia: Yes - Integumentary Hx Dermatological Disorder: Yes (hx diabetic foot ulcers) - Musculoskeletal/Rheumatological Hx Falls: No - Gastrointestinal Hx Gastrointestinal Disorders: Yes (gastritis,gastroparesis) Hx Gastroesophageal Reflux: Yes - Genitourinary/Gynecological Hx Urinary Tract Infection: Yes - Psychiatric Hx Psychophysiologic Disorder: Yes Hx Anxiety: Yes Hx Substance Use: No - Past Surgical History Past Surgical History: No Previous - Surgical History Hx Cardiac Catheterization: No Other/Comment: endoscopy with BOTOX - Anesthesia Hx Anesthesia: No Hx Anesthesia Reactions: No Hx Malignant Hyperthermia: No - Suicidal Assessment Feels Threatened In Home Enviroment: No Family/Social History Family/Social History: Unknown Family HX Smoking Status: Never Smoked Hx Alcohol Use: No Hx Substance Use: No Hx Substance Use Treatment: No Allergies/Home Meds Allergies/Adverse Reactions: Allergies metoclopramide HCl [From Reglan] Adverse Reaction (Verified 05/04/18 14:22) VOMITING Review of Systems - Review of Systems Constitutional: Fatigue. absent: Fevers Eyes: absent: Vision Changes ENT: absent: Hearing Changes, Sore Throat Respiratory: absent: SOB, Cough Cardiovascular: Chest Pain, Palpitations. absent: Edema, Calf Pain Gastrointestinal: Abdominal Pain, Nausea, Vomiting, Appetite Changes Genitourinary Female: absent: Dysuria, Frequency Neurological: absent: Headache, Dizziness, Focal Weakness Endocrine: Polyuria, Polydipsia Hemo/Lymphatic: absent: Easy Bleeding Psychiatric: absent: Depression Physical Exam Vital Signs Reviewed: Yes Vital Signs Temp Pulse Resp BP Pulse Ox 06/03/18 13:46 118 H 18 144/78 100 06/03/18 12:46 121 H 20 148/90 100 06/03/18 09:25 98.0 F 124 H 22 149/85 100 Temperature: Afebrile Pulse: Tachycardic Respiratory Rate: Tachypneic Appearance: Positive for: Ill-Appearing, Uncomfortable Pain Distress: Moderate Mental Status: Positive for: Alert and Oriented X 3 - Systems Exam Head: Present: Atraumatic Mouth: Present: Dry Pharnyx: No: ERYTHEMA Neck: Present: Normal Range of Motion. No: Meningeal Signs Respiratory/Chest: Present: Clear to Auscultation. No: Respiratory Distress Cardiovascular: Present: Murmurs, Tachycardic Abdomen: Present: Tenderness. No: Peritoneal Signs Back: No: CVA Tenderness Upper Extremity: No: Cyanosis Lower Extremity: Present: Neurovascularly Intact. No: Edema Neurological: Present: Motor Func Grossly Intact, Normal Sensory Function Skin: Present: Warm Psychiatric: Present: Alert Medical Decision Making ED Course and Treatment: Patient seen and evaluated upon arrival. Mother is at bedside and supplements history. Patient smells of acetone, is hyperglycemic, tachypneic. High suspicion of DKA, iv line ordered. IV fluid boluses ordered. Patient has poor peripheral access after multiple attempts to establish iv access. Zofran and toradol administered with no improvement in pain. Risks/side effects indications of morphine reviewed with patient and mother as well as alternative treatment options. Section Weaver consulted. Central line placed by orthopedic coder. IV fluid boluses given and insulin drip ordered. Continued serial exams. IV morphine ordered and ativan ordered for anxiety, pain. 06/03/2018 12:38 Chest X-ray IMPRESSION: Right IJ in satisfactory position with no pneumothorax. Dictator: Edward Theodore updated with patients diagnosis, consultations and labs. ABG reveals metabolic acidosis. Will admit to ICU for monitoring, treatment of DKA. Consult placed to endocrinology. - Critical Care Critical Care Minutes: 45 minutes - Lab Interpretations Lab Results: 06/03/18 12:00 06/03/18 12:00 Lab Results 06/03/18 12:00: Alcohol, Quantitative < 10 06/03/18 12:00: PT 10.9, INR 0.95, APTT 27.9 06/03/18 12:00: WBC 8.7 D, RBC 4.47, Hgb 11.8 L, Hct 35.7 L, MCV 79.9 L, MCH 26.4, MCHC 33.1, RDW 17.5 H, Plt Count 450, MPV 8.7, Gran % 71.3 H, Lymph % ( Auto) 21.8 L, Surry % (Auto) 6.8 H, Eos % (Auto) 0.0 L, Baso % (Auto) 0.1, Gran # 6.20, Lymph # (Auto) 1.9, Surry # (Auto) 0.6, Eos # (Auto) 0.0, Baso # (Auto) 0.01 06/03/18 12:00: Sodium 136, Chloride 100, Potassium 4.6, Carbon Dioxide < 5 L D , Anion Gap 36 H, BUN 19, Creatinine 1.2, Est GFR ( Amer) 60, Est GFR ( Non-Af Amer) 50, Random Glucose 419 H* D, Calcium 9.4, Total Bilirubin 0.7, AST 12 L D, ALT 45, Alkaline Phosphatase 238 H D, Lactate Dehydrogenase 553, Total Creatine Kinase 121, Troponin I < 0.01, Total Protein 8.3, Albumin 4.7, Globulin 3.6, Albumin/Globulin Ratio 1.3, Amylase 46, Lipase 28 06/03/18 10:01: POC Glucose (mg/dL) 439 H* 06/03/18 10:00: pCO2 13 L*, pO2 128.0 H, HCO3 4.6 L*, ABG pH 7.16 L*, ABG Total CO2 5.0 L, ABG O2 Saturation 97.9, ABG Base Excess -21.6 L, ABG Potassium 4.2, Sodium 131.0 L, Chloride 98.0, Glucose 614 H* D, Lactate 1.8, FiO2 21.0, Arterial Blood Potassium 4.2 I have reviewed the lab results: Yes - RAD Interpretation Radiology Orders: 06/03/18 09:36 CHEST PORTABLE [RAD] Stat 06/03/18 11:54 ABD & PELVIS W/O PO OR IV CONT [CT] Stat - EKG Interpretation EKG Interpretation (Text): 06/03/18 17:55 EKG at 0937 sinus tachycardia rate of 122 Interpreted by ED Physician: Yes Type: 12 lead EKG - Medication Orders Current Medication Orders: Amlodipine Besylate (Norvasc) 5 mg PO DAILY [facility] Sodium Bicarbonate 150 meq/ (Dextrose) 1,150 mls @ 150 mls/hr IV .Q7H40M [facility] Last Admin: 06/03/18 13:35 Dose: 150 mls/hr eMAR Start Stop Document 06/03/18 13:35 GMD (Rec: 06/03/18 13:36 GMD [id number]) Intravenous Solution Start Date 06/03/18 Start Time 13:35 Insulin Human Regular 100 (units/ Sodium Chloride) 100 mls @ 5 mls/hr IV .Q20H PRN; Protocol; 5 UNITS/HR PRN Reason: TITRATE PER MD ORDER Last Titration: 06/03/18 17:50 Dose: 3 units/hr, 3 mls/hr Titration Intervention Document 06/03/18 17:50 JUR (Rec: 06/03/18 17:52 JUR [id number]) Titration Intake Titration Intake 4 Cumulative Intake 24 Cumulative Intake (Rx) 24 Waste Amount 0 Container Volume 76 Titration Dosing Titration Dose 3 IV Rate 3 Intake/Decrease Decreased Cumulative Dose 24 Lactated Ringer's (Lactated Ringer's) 1,000 mls @ 2,000 mls/hr IV .Q30M [facility] Last Admin: 06/03/18 12:19 Dose: 2,000 mls/hr eMAR Start Stop Document 06/03/18 12:19 GMD (Rec: 06/03/18 12:20 GMD [id number]) Intravenous Solution Start Date 06/03/18 Start Time 12:20 End Date 06/03/18 End time 12:50 Total Infusion Time 30 Pantoprazole Sodium (Protonix 40mg Ivpb) 40 mg in 100 mls @ 200 mls/hr IVPB 0600 [facility] Lactated Ringer's (Lactated Ringer's) 1,000 mls @ 999 mls/hr IV .Q1H1M MICHELLE Stop: 06/03/18 18:30 Ketorolac Tromethamine (Toradol) 30 mg IVP Q8 PRN PRN Reason: Pain, moderate (4-7) Lorazepam (Ativan) 0.5 mg PO TID PRN; Protocol PRN Reason: Agitation Ondansetron HCl (Zofran Inj) 4 mg IVP Q6 PRN PRN Reason: Nausea/Vomiting Polyethylene Glycol (Miralax) 17 gm PO DAILY PRN PRN Reason: Constipation Discontinued Medications Sodium Chloride (Sodium Chloride 0.9%) 1,000 mls @ 1,000 mls/hr IV .Q1H STA Stop: 06/03/18 10:36 Last Admin: 06/03/18 11:56 Dose: Not Given Non-Admin Reason: Agitation Sodium Chloride (Sodium Chloride 0.9%) 1,000 mls @ 999 mls/hr IV .Q1H1M STA Stop: 06/03/18 12:48 Last Admin: 06/03/18 11:56 Dose: Insulin Human Regular (Humulin R) 8 units SC STAT STA Stop: 06/03/18 11:06 Last Admin: 06/03/18 11:16 Dose: Ketorolac Tromethamine (Toradol) 30 mg IM ONCE ONE Stop: 06/03/18 11:06 Last Admin: 06/03/18 11:11 Dose: 30 mg MAR Pain Assessment Document 06/03/18 11:11 GMD (Rec: 06/03/18 11:11 GMD [id number]) Pain Reassessment Is this a pain reassessment? No IM Administration Charges Document 06/03/18 11:11 GMD (Rec: 06/03/18 11:11 GMD [id number]) Injection Site MAR Injection Site Left Deltoid Charges for Administration # of IM Administrations 1 Lorazepam (Ativan) 1 mg IVP ONCE ONE Stop: 06/03/18 13:35 Last Admin: 06/03/18 13:45 Dose: 1 mg IVP Administration Document 06/03/18 13:45 GMD (Rec: 06/03/18 13:45 GMD [id number]) Charges for Administration # of IVP Administrations 1 Morphine Sulfate (Morphine) 4 mg IVP STAT STA Stop: 06/03/18 13:28 Last Admin: 06/03/18 13:35 Dose: 4 mg MAR Pain Assessment Document 06/03/18 13:35 GMD (Rec: 06/03/18 13:35 GMD [id number]) Pain Reassessment Is this a pain reassessment? No Presence of Pain Presence of Pain Yes Pain Scale Used Pain Scale Used Numeric Location Pain Location Body Site Abdomen Description Description Constant Intensity of Pain at present 10 IVP Administration Document 06/03/18 13:35 GMD (Rec: 06/03/18 13:35 GMD [id number]) Charges for Administration # of IVP Administrations 1 Ondansetron HCl (Zofran Odt) 4 mg PO STAT STA Stop: 06/03/18 10:58 Last Admin: 06/03/18 11:11 Dose: 4 mg Disposition/Present on Arrival - Present on Arrival Any Indicators Present on Arrival: Yes History of DVT/PE: No History of Uncontrolled Diabetes: Yes Urinary Catheter: No History of Decub. Ulcer: No History Surgical Site Infection Following: None - Disposition Have Diagnosis and Disposition been Completed?: Yes Diagnosis: DKA (diabetic ketoacidoses), Tachycardia, Anxiety Disposition: HOSPITALIZED Disposition Time: 10:00 Patient Plan: Admission, ICU Patient Problems: Current Active Problems Problem Status Onset DKA (diabetic ketoacidoses) Acute Tachycardia Acute Anxiety Chronic Condition: CRITICAL
[2018-06-03 10:08] LABS: ARTERIAL BLOOD GAS O2 SAT 97.9 % (95-98)
[2018-06-03 10:38] LABS: ARTERIAL BLOOD GAS HCO3 4.6 mmol/L (21-28); ARTERIAL BLOOD GAS PH 7.16 (7.35-7.45)
[2018-06-03 10:39] LABS: ARTERIAL BLOOD GAS PCO2 13 mm/Hg (35-45)
[2018-06-03] MEDS ORDERED: Insulin Regular 1 UNITS/0.01 ML ML SC STA (11:05)
[2018-06-03] MEDS ORDERED: Insulin Regular 100 UNITS in Sodium Chloride 0.9% 99 ML IV PRN (11:50)
[2018-06-03] MEDS ORDERED: Lactated Ringer's 1,000 ML IV SCH ×3 (12:00→17:30)
[2018-06-03 12:13] LABS: BASO # 0.01 K/mm3 (0.0-2.0); BASO % 0.1 % (0.0-3.0); GRAN # 6.2 (1.4-6.5); GRAN % 71.3 % (50.0-68.0); HEMOGLOBIN 11.8 g/dL (12.0-16.0); LYMPH # 1.9 (1.2-3.4); LYMPH % 21.8 % (22.0-35.0); MEAN CELL VOLUME 79.9 fl (80.0-105.0); MEAN CORPUSCULAR HEMOGLOBIN 26.4 pg (25.0-35.0); MEAN CORPUSCULAR HGB CONC 33.1 g/dl (31.0-37.0); MEAN PLATELET VOLUME 8.7 fl (7.0-11.0); MONO # 0.6 (0.1-0.6); MONO % 6.8 % (1.0-6.0); RBC 4.47 10^6/uL (3.5-6.1); RED CELL DISTRIBUTION WIDTH 17.5 % (11.5-14.5); WHITE BLOOD COUNT 8.7 10^3/ul (4.5-11.0)
[2018-06-03 12:22] LABS: INR 0.95 (0.93-1.08); PARTIAL THROMBOPLASTIN TIME 27.9 Seconds (25.1-36.5); PROTHROMBIN TIME 10.9 SECONDS (9.4-12.5)
[2018-06-03 12:36] LABS: TROPONIN I < 0.01 ng/mL
--- NOTE | 2018-06-03 12:39 | RAD ---
Date of service: 06/03/2018 HISTORY: chest pain COMPARISON: No prior. FINDINGS: LUNGS: No active pulmonary disease. PLEURA: No significant pleural effusion identified, no pneumothorax apparent. CARDIOVASCULAR: Normal. OSSEOUS STRUCTURES: No significant abnormalities. VISUALIZED UPPER ABDOMEN: Normal. OTHER FINDINGS: Catheter terminates in the upper right atrium IMPRESSION: Right IJ line in satisfactory position with no pneumothorax
[2018-06-03 12:48] LABS: ALB/GLOB RATIO 1.3 (1.1-1.8); ALBUMIN 4.7 g/dL (3.0-4.8); ALT/SGPT 45 U/L (7-56); AMYLASE 46 U/L (35-125); AST/SGOT 12 U/L (14-36); BLOOD UREA NITROGEN 19 mg/dL (7-21); CALCIUM 9.4 mg/dL (8.4-10.5); GFR AFRICAN-AMERICAN 60; GFR NON-AFRICAN AMERICAN 50; LIPASE 28 U/L (23-300)
[2018-06-03] MEDS ORDERED: Morphine 4 mg/ml ISec IVP STA (13:27)
--- NOTE | 2018-06-03 13:31 | CON ---
DATE: 06/03/2018 HISTORY OF PRESENT ILLNESS: This is a 43-year-old lady with history of longstanding insulin-dependent diabetes mellitus, who presented this time with about a week-long nausea, vomiting, diarrhea. She is unable to eat and drink. Here, she was found to be very lethargic, in severe metabolic acidosis and highly elevated blood glucose. She had difficulty establishing IV access and the central venous line was just put in. No chest pain. No shortness of breath. No fever. No chills. No sweats. The patient does not appear to have abdominal pain/tenderness on exam as well. PAST MEDICAL HISTORY: Diabetes mellitus, insulin-dependence. MEDICATIONS AT HOME: Norvasc, Carafate, MiraLax, Protonix, Zofran p.r.n., Lopressor, Ativan, Levemir and Lispro, Colace. ALLERGIES: REGLAN. FAMILY HISTORY: Noncontributory. SOCIAL HISTORY: No alcohol or illicit drug abuse. No tobacco smoking. PHYSICAL EXAMINATION: VITAL SIGNS: Heart rate 124, temperature 98, blood pressure 149/85, respiratory rate 22, oxygen saturation 100% on room air. HEENT: Head and neck atraumatic. LUNGS: Clear to auscultation bilaterally. HEART: Regular rate and rhythm. S1 and S2 normal. ABDOMEN: Soft, nontender and nondistended. MUSCULOSKELETAL: Mucosal membranes are dry. No C/C/E. NEURO: The patient moves all extremities spontaneously. SKIN: Moist. PSYCH: The patient is alert, but somnolent and oriented x3. Looked very fatigued and tired. LABORATORY DATA: Blood potassium 4.2, POC glucose 439 and ABG 7.16, bicarb 4.6, glucose 614, lactic acid level 1.8. Chest x-ray: No acute pulmonary disease. Questionable emphysematous changes. CVL in correct position. ASSESSMENT AND PLAN: This is a 43-year-old lady, who presented with what appears to be diabetic ketoacidosis/severe metabolic acidosis and severe dehydration. At present time, we will proceed with fluid resuscitation. 2 L of lactated Ringer's were given and bicarbonate drip at 150 mL/hour started. CBC, CMP are pending. We will continue with BMP every 4 hours, Accu-Chek every 1 hour, insulin drip. CT of the abdomen and pelvis will be done as well. Once anion gap closed, she will be switched to longer-acting formulation of insulin. We will continue target euvolemia, euglycemia, normothermia and oxygen saturation more than 90%. We will continue with deep venous thrombosis and gastrointestinal prophylaxis. Addendum: CBC reviewed--no leukocytosis, CMP reviewed--bicarb<5, significant AG. CTAP--no acute findings. Will hold on empiric abx, but will do septic workup ccm time 40 min Murray Fregoso MD MTDRuth Ann
[2018-06-03] MEDS: Sodium Bicarbonate 8.4% 150 MEQ in Dextrose 5% In Water 1,000 ML IV SCH ×2 (13:35→19:56)
[2018-06-03] MEDS ORDERED: POLYETHYLENE GLYCOL 3350 17 GM/Dose PACKET PO PRN (13:43)
--- NOTE | 2018-06-03 15:18 | CT ---
Date of service: 06/03/2018 PROCEDURE: CT Abdomen and Pelvis without intravenous contrast HISTORY: enterocolitis COMPARISON: 03/15/2018 CT TECHNIQUE: Without contrast. Contrast dose: Radiation dose: Total exam DLP = 598 mGy-cm. This CT exam was performed using one or more of the following dose reduction techniques: Automated exposure control, adjustment of the mA and/or kV according to patient size, and/or use of iterative reconstruction technique. FINDINGS: LOWER THORAX: Unremarkable. LIVER: Unremarkable. No gross lesion or ductal dilatation. GALLBLADDER AND BILE DUCTS: Unremarkable. PANCREAS: Unremarkable. No gross lesion or ductal dilatation. SPLEEN: Unremarkable. ADRENALS: Unremarkable. No mass. KIDNEYS AND URETERS: Unremarkable. No hydronephrosis. No solid mass. VASCULATURE: Unremarkable. No aortic aneurysm. BOWEL: Unremarkable. No obstruction. No gross mural thickening. APPENDIX: Unremarkable. Normal appendix. PERITONEUM: Unremarkable. No free fluid. No free air. LYMPH NODES: Unremarkable. No enlarged lymph nodes. BLADDER: Unremarkable. REPRODUCTIVE: As seen previously there bilateral adnexal cysts and a small amount of fluid in the cul-de-sac. BONES: No acute fracture. OTHER FINDINGS: None. IMPRESSION: Bilateral adnexal cysts and a small amount of fluid in the cul-de-sac. Findings are similar previous study. No acute intra-abdominal findings
--- NOTE | 2018-06-03 17:02 | CARD ---
APPROVED REPORT Date of service: 06/03/2018 EKG Measurement Heart [id number] <Conclusion> Sinus tachycardia Biatrial enlargement Abnormal ECG
[2018-06-03 19:13] LABS: URINE BILIRUBIN SMALL (NEGATIVE); URINE BLOOD SMALL (NEGATIVE); URINE GLUCOSE (UA) >=1000 mg/dL (NEGATIVE); URINE LEUKOCYTE ESTERASE NEGATIVE Leu/uL (NEGATIVE); URINE PROTEIN 100 mg/dL (<30 mg/dL); URINE UROBILINOGEN 0.2 E.U./dL (<1 E.U./dL)
[2018-06-03 19:15] LABS: URINE APPEARANCE CLEAR (CLEAR); URINE COLOR LIGHT YELLOW (YELLOW)
[2018-06-03 19:54] LABS: HCG,QUALITATIVE URINE NEGATIVE (NEGATIVE); URINE BACTERIA SMALL (NEG)
[2018-06-03 20:07] LABS: BLOOD UREA NITROGEN 17 mg/dL (7-21); CALCIUM 8.9 mg/dL (8.4-10.5); GFR AFRICAN-AMERICAN > 60; GFR NON-AFRICAN AMERICAN > 60
[2018-06-03] MEDS ORDERED: Potassium Chloride 20 mEq ER Tab PO ONE (21:41)
[2018-06-03] MEDS ORDERED: Dextrose 50% SYRINGE Inj (50 ml) IVP ONE ×2 (21:45→21:46)
[2018-06-03] MEDS ORDERED: Insulin Detemir 100 units/ml Vial (Levemir) SC SCH (22:00)
[2018-06-03] MEDS: Insulin Lispro (humaLOG) LOW Coverage SC SCH (23:29)
[2018-06-04] MEDS: Sodium Bicarbonate 8.4% 150 MEQ in Dextrose 5% In Water 1,000 ML IV SCH (03:49)
--- NOTE | 2018-06-04 03:51 | CON ---
DATE: ENDOCRINOLOGY CONSULT LOCATION: Room 129, 2 CCU HISTORY OF PRESENT ILLNESS: This is a 43-year-old female with known history of type 1 insulin-dependent diabetes presenting here with generalized body weakness and supervening nausea, dyspepsia and intractable vomiting and is now being referred for diabetic evaluation and management. PAST MEDICAL HISTORY: History of type 1 insulin-dependent diabetes, currently on a combination of Levemir taken as 30 units at bedtime with Humalog 5 units t.i.d. before meals. She has had frequent admissions for diabetic ketoacidosis and exacerbations of diabetic gastroparesis with intractable vomiting episodes as noted thereof. History of diabetic retinopathy and polyneuropathy. She also has previous admissions for peripheral arterial disease and lower extremity neuropathic ulcerations. History of generalized anxiety state. History of hypertension and dyslipidemia. FAMILY HISTORY: Positive for diabetes and hypertension. SOCIAL HISTORY: The patient has supportive mother and family. No known substance use. REVIEW OF SYSTEMS: As mentioned above. Admits to generalized body weakness with episodic dizziness and lightheadedness, progressively worse on the day of admission. Also admits to bifrontal headaches and visual blurring with increasing easy fatigability and tiredness. Also admits to precordial chest pain and episodic palpitations with shortness of breath, especially on exertion. Her oral intake has been variable with nausea, dyspepsia and vague upper abdominal pains with very variable and nil oral intake in the last week or so prior to admission. Also admits to marked polyuria, nocturia and polydipsia as noted. PHYSICAL EXAMINATION: GENERAL: This is an average built female, in no apparent distress. VITAL SIGNS: Blood pressure of 140/80, pulse of 70 beats per minute regular, temperature 99, respirations 20, height is 5 feet 6 inches, weight is 163 pounds. HEENT: Head normocephalic. Eyes anicteric with pink conjunctivae. Funduscopy not possible at this time. Ears, Nose and Throat otherwise normal. NECK: Supple. Thyroid gland is normal size. No carotid bruits or cervical adenopathy. CARDIOPULMONARY: Some adynamic precordium. S1, S2 is rapid and regular. LUNGS: Clear to auscultation. ABDOMEN: Flat, soft with positive bowel sounds. EXTREMITIES: No peripheral edema. Pulses are +2 bilaterally. LABORATORY DATA: Her chemistries initially showed a BUN of 19, sodium 136, potassium 4.6, chloride 100, CO2 less than 5, glucose 419, creatinine 1.2. The last CO2 tonight is 21. Glucose tonight is 93 mg/dL. ASSESSMENT: This is a 43-year-old female with uncontrolled and decompensated type 1 insulin-dependent diabetes presenting here with diabetic ketoacidosis and dehydration with concomitant exacerbation of diabetic gastroparesis and is now being referred for diabetic evaluation and management. She also has diabetic microvascular complications of retinopathy and polyneuropathy as noted. Plan of management was discussed with the patient and staff. We will switch her over now to a more physiologic basal and bolus insulin regimen at the much lower dosing combination because of the variable and suboptimal meal portions at this time. We will start her with Levemir tonight at 12 units subcu at bedtime daily and we will titrate incrementally to optimize metabolic control. We will add Humalog given as 6 units subcu t.i.d. before meals to start tomorrow morning at breakfast time. We will modify the coverage scale to obviate hypoglycemia and detailed orders have been given. A hemoglobin A1c has been sent out and we will obtain serial chemistries and supplement accordingly as needed. We will continue the dextrose infusion with sodium bicarbonate overnight to optimize her lost fluids and electrolytes and correct the increased losses from increased osmotic diuresis thereof. We will not stop the vigorous IV hydration even by tomorrow to prevent further metabolic decompensation and diabetic ketoacidosis. We will follow. Tamara Campo MD
[2018-06-04] MEDS: Pantoprazole 40mg/100mL NS 40 MG/100 ML BAG IVPB SCH (05:06)
[2018-06-04 07:22] LABS: ALB/GLOB RATIO 1.1 (1.1-1.8); ALBUMIN 3.2 g/dL (3.0-4.8); ALT/SGPT 30 U/L (7-56); AST/SGOT 27 U/L (14-36); BLOOD UREA NITROGEN 15 mg/dL (7-21); CALCIUM 7.9 mg/dL (8.4-10.5); GFR AFRICAN-AMERICAN > 60; GFR NON-AFRICAN AMERICAN > 60
[2018-06-04 07:23] LABS: MEAN CELL VOLUME 78.1 fl (80.0-105.0); MEAN CORPUSCULAR HEMOGLOBIN 26.4 pg (25.0-35.0); MEAN CORPUSCULAR HGB CONC 33.8 g/dl (31.0-37.0); MEAN PLATELET VOLUME 9.1 fl (7.0-11.0); RBC 3.56 10^6/uL (3.5-6.1); RED CELL DISTRIBUTION WIDTH 17.4 % (11.5-14.5); WHITE BLOOD COUNT 7.1 10^3/ul (4.5-11.0)
[2018-06-04] MEDS ORDERED: Potassium Phosphate 15 MMOLE in Sodium Chloride 0.9% 250 ML IVPB ONE (07:27)
[2018-06-04 07:28] LABS: HEMOGLOBIN 9.4 g/dL (12.0-16.0)
[2018-06-04] MEDS: Potassium Chloride 20 mEq ER Tab PO STA ×2 (07:56→08:03)
[2018-06-04] MEDS: Insulin Lispro 1 UNITS/0.01 ML SC SCH ×3 (07:57→17:25)
[2018-06-04] MEDS: Lactated Ringer's 1,000 ML IV SCH ×3 (08:18→22:20)
[2018-06-04] MEDS: Insulin Lispro (humaLOG) LOW Coverage SC SCH ×4 (08:18→22:25)
--- NOTE | 2018-06-04 08:24 | HP ---
HISTORY OF PRESENT ILLNESS: I saw Shanelle in the emergency room at [facility] this morning. She is a 43-year-old -Turk[place] female who tried to resist coming to the emergency room with severe nausea, vomiting, and abdominal pain. Very upset also. She is a diabetic. Her diabetes has been uncontrolled. She has chest pains, palpitations, body aches, nausea, increase in urine, increase in thirst. She has been sick all week, not wanting to come to the emergency room the blood sugars are running quite high. PAST MEDICAL HISTORY: Diabetes, hypertension, neuropathy. She has had a DKA in the past. She has diabetic foot ulcers, gastritis, gastroparesis, gastroesophageal reflux, urinary tract infections, anxiety, endoscopies with Botox. SOCIAL HISTORY: Nonsmoker. No alcohol. No drugs. ALLERGIES: SHE IS ALLERGIC TO REGLAN. REVIEW OF SYSTEMS: She is very fatigued. No vision changes. No hearing changes. No sore throat. No shortness of breath. No cough. appetite changes, increase in urination and increase in thirst. No easy bleeding. No depression, but she is very anxious. PHYSICAL EXAMINATION: VITAL SIGNS: Temperature 98, 124 pulse, 22 respiratory rate, 149/85 blood pressure, 100% O2 sat on room air. HEENT: Her head is atraumatic, normocephalic. Mouth is dry. NECK: Supple. No JVD. HEART: Regular rate, tachy. LUNGS: Decreased breath sounds, but clear. ABDOMEN: Soft. allover, but no guarding or rebound. Decreased bowel sounds. No CVA tenderness. EXTREMITIES: She can move all 4 extremities. No edema. SKIN: Warm and dry. NEUROLOGIC: Alert, very much in distress. LABORATORY DATA: She had multiple tests done. She had a chest x-ray which showed the right IJ in satisfactory position. No pneumothorax. White count 8.7, 11.8 hemoglobin, 35.7 hematocrit with 450 platelets. Alcohol level is less than 10. She had 136 sodium, potassium 4.6, chloride 100, anion gap is 36. BUN is 19, creatinine 1.2. GFR is greater than 60. Sugars 419 and 439. She has a calcium of 9.4. Total bili is 0.7, AST is 12, ALT is 45, alk phos 238. Lactate dehydrogenase is 553, total creatine kinase 121. Troponin I is less than 0.01. Total protein 0.3, albumin is 4.7, globulin 3.6, amylase is 46, lipase is 28. showed 128 O2 with a 7.16 pH with 614 blood sugar. INR is 0.95. IMPRESSION: She will have consults with GI and Endocrinology. She has been put in the Intensive Care Unit. She will be on IV fluids, Toradol for pain, for anxiety. We will watch her very closely for DKA with severe abdominal pain possibly gastroparesis. David Theodore DO MTDD
--- NOTE | 2018-06-04 09:30 | CP.PCM.CON ---
<Zion Conner - Last Filed: 06/04/18 09:51> History of Present Illness - History of Present Illness History of Present Illness: PGY-4 GI Fellow Consult Note Mrs. Mancini is a 43 yo BF with DM1 c/b multiple admission for DKA with complications of gastroparesis, retinopathy and nephropathy presenting with body ached, N/V. GI consulted for nausea/vomiting. Pt states that over the last week of so she has become progressively more ill with N/V consisting of NB/ NB emesis. State that she has had little appetite but reports compliance with insulin. Denies any hematemesis, fevers, CP, nor SOB. States this has been an ongoing struggle for her. Otherwise she is minimally conversant during my encounter stating that she is nauseous, last emesis was day prior without any clear precipitating or alleviating factors. 12 point ROS negative other than states above MHx: See above plus, HTN, HLD SurgHx EGD 12/16/16 with LA Grade C esophagitis, gastric + duodenal ulcers (FC III both, Gastric Bx negative for Hpylori) Meds: Reviewed in MAR, lispro, detemire, sucralfate FamHx: DM, HTN SocHx: DeniesEtOH, illcits and tobacco All: Metoclopramide Past Patient History - Infectious Disease Hx of Infectious Diseases: None - Tetanus Immunizations Tetanus Immunization: Unknown - Past Social History Smoking Status: Never Smoked - CARDIAC Hx Cardiac Disorders: Yes Hx Hypertension: Yes - PULMONARY Hx Respiratory Disorders: No - NEUROLOGICAL Hx Neurological Disorder: Yes (NEUROPATHY) - HEENT Hx HEENT Problems: Yes Other/Comment: wears glasses-nearsighted - RENAL Hx Chronic Kidney Disease: No - ENDOCRINE/METABOLIC Hx Diabetes Mellitus Type 1: Yes (hx DKA) - HEMATOLOGICAL/ONCOLOGICAL Hx Anemia: Yes - INTEGUMENTARY Hx Dermatological Problems: Yes (hx diabetic foot ulcers) - MUSCULOSKELETAL/RHEUMATOLOGICAL Hx Falls: No - GASTROINTESTINAL Hx Gastrointestinal Disorders: Yes (gastritis,gastroparesis) Hx Gastroesophageal Reflux: Yes - GENITOURINARY/GYNECOLOGICAL Hx Urinary Tract Infection: Yes - PSYCHIATRIC Hx Psychophysiologic Disorder: Yes Hx Anxiety: Yes Hx Substance Use: No - SURGICAL HISTORY Hx Cardiac Catheterization: No Other/Comment: endoscopy with BOTOX - ANESTHESIA Hx Anesthesia: No Hx Anesthesia Reactions: No Hx Malignant Hyperthermia: No Meds Allergies/Adverse Reactions: Allergies Allergy/AdvReac Type Severity Reaction Status Date / Time metoclopramide HCl AdvReac VOMITING Verified 05/04/18 14:22 [From Reglan] - Medications Medications: Current Medications Amlodipine Besylate (Norvasc) 5 mg PO DAILY [facility] Pantoprazole Sodium (Protonix 40mg Ivpb) 40 mg in 100 mls @ 200 mls/hr IVPB 0600 [facility] Last Admin: 06/04/18 05:06 Dose: 200 mls/hr Lactated Ringer's (Lactated Ringer's) 1,000 mls @ 150 mls/hr IV .Q6H40M [facility] Last Admin: 06/04/18 08:18 Dose: 150 mls/hr Potassium Chloride (Potassium Chloride 20 Meq/100 Ml) 20 meq in 100 mls @ 50 mls/hr IVPB Q2H [facility] Stop: 06/04/18 12:14 Last Admin: 06/04/18 08:19 Dose: 50 mls/hr Insulin Detemir (Levemir) 12 unit SC HS [facility] Last Admin: 06/03/18 23:32 Dose: 12 units Insulin Human Lispro (Humalog Low) 0 units SC ACHS [facility] PRN Reason: Protocol Last Admin: 06/04/18 08:18 Dose: Not Given Insulin Human Lispro (Humalog) 6 units SC AC [facility] Last Admin: 06/04/18 07:57 Dose: 6 unit Ketorolac Tromethamine (Toradol) 30 mg IVP Q8 PRN PRN Reason: Pain, moderate (4-7) Last Admin: 06/04/18 03:02 Dose: 30 mg Lorazepam (Ativan) 0.5 mg PO TID PRN; Protocol PRN Reason: Agitation Last Admin: 06/04/18 03:05 Dose: 0.5 mg Ondansetron HCl (Zofran Inj) 4 mg IVP Q6 PRN PRN Reason: Nausea/Vomiting Last Admin: 06/04/18 03:03 Dose: 4 mg Polyethylene Glycol (Miralax) 17 gm PO DAILY PRN PRN Reason: Constipation Physical Exam - Constitutional Additional comments: Uncomfortable, minimal eye contact, moaning intermittently - Head Exam Head Exam: ATRAUMATIC, NORMAL INSPECTION - Eye Exam Eye Exam: EOMI. absent: Scleral icterus - ENT Exam ENT Exam: Mucous Membranes Dry, Normal External Ear Exam - Respiratory Exam Respiratory Exam: Clear to Auscultation Bilateral, NORMAL BREATHING PATTERN. absent: Wheezes - Cardiovascular Exam Cardiovascular Exam: Tachycardia. absent: Irregular Rhythm, Systolic Murmur - GI/Abdominal Exam GI & Abdominal Exam: Normal Bowel Sounds, Soft. absent: Bruit, Distended, Firm , Guarding, Mass, Tenderness - Neurological Exam Neurological exam: Alert, CN II-XII Intact - Psychiatric Exam Additional comments: frustrated, minimally conversive - Skin Skin Exam: Normal Color, Warm Results - Vital Signs Recent Vital Signs: Last Vital Signs Temp 98.0 F 06/03/18 14:30 Pulse 93 H 06/04/18 06:00 Resp 18 06/04/18 04:10 BP 99/53 L 06/04/18 04:00 Pulse Ox 100 06/04/18 04:10 - Labs Result Diagrams: 06/04/18 05:45 06/04/18 05:45 Labs: Laboratory Results - last 24 hr 06/03/18 06/03/18 06/03/18 14:25 15:27 16:44 WBC RBC Hgb Hct MCV MCH MCHC RDW Plt Count MPV Sodium Potassium Chloride Carbon Dioxide Anion Gap BUN Creatinine Est GFR ( Amer) Est GFR (Non-Af Amer) POC Glucose (mg/dL) 312 H 277 H 165 H Random Glucose Calcium Phosphorus Magnesium Total Bilirubin AST ALT Alkaline Phosphatase Total Protein Albumin Globulin Albumin/Globulin Ratio Urine Color Urine Appearance Urine pH Ur Specific [place] Urine Protein Urine Glucose (UA) Urine Ketones Urine Blood Urine Nitrate Urine Bilirubin Urine Urobilinogen Ur Leukocyte Esterase Urine RBC Urine WBC Ur Epithelial Cells Urine Bacteria Urine HCG, Qual 06/03/18 06/03/18 06/03/18 17:40 18:24 19:42 WBC RBC Hgb Hct MCV MCH MCHC RDW Plt Count MPV Sodium Potassium Chloride Carbon Dioxide Anion Gap BUN Creatinine Est GFR ( Amer) Est GFR (Non-Af Amer) POC Glucose (mg/dL) 132 H 123 H Random Glucose Calcium Phosphorus Magnesium Total Bilirubin AST ALT Alkaline Phosphatase Total Protein Albumin Globulin Albumin/Globulin Ratio Urine Color Light yellow Urine Appearance Clear Urine pH 6.0 Ur Specific [place] >= 1.030 Urine Protein 100 H Urine Glucose (UA) >=1000 Urine Ketones >=80 Urine Blood Small H Urine Nitrate Negative Urine Bilirubin Small H Urine Urobilinogen 0.2 Ur Leukocyte Esterase Negative Urine RBC 2 - 5 Urine WBC 1 - 3 Ur Epithelial Cells 4 - 5 Urine Bacteria Small Urine HCG, Qual Negative 06/03/18 06/03/18 06/03/18 19:45 21:02 22:33 WBC RBC Hgb Hct MCV MCH MCHC RDW Plt Count MPV Sodium 139 Potassium 3.9 Chloride 101 Carbon Dioxide 21 Anion Gap 21 H BUN 17 Creatinine 0.8 Est GFR ( Amer) > 60 Est GFR (Non-Af Amer) > 60 POC Glucose (mg/dL) 93 345 H Random Glucose 118 H Calcium 8.9 Phosphorus Magnesium Total Bilirubin AST ALT Alkaline Phosphatase Total Protein Albumin Globulin Albumin/Globulin Ratio Urine Color Urine Appearance Urine pH Ur Specific [place] Urine Protein Urine Glucose (UA) Urine Ketones Urine Blood Urine Nitrate Urine Bilirubin Urine Urobilinogen Ur Leukocyte Esterase Urine RBC Urine WBC Ur Epithelial Cells Urine Bacteria Urine HCG, Qual 06/03/18 06/04/18 06/04/18 23:28 05:45 05:45 WBC 7.1 RBC 3.56 Hgb 9.4 L D Hct 27.8 L MCV 78.1 L MCH 26.4 MCHC 33.8 RDW 17.4 H Plt Count 366 MPV 9.1 Sodium 135 Potassium 3.2 L Chloride 95 L Carbon Dioxide 25 Anion Gap 18 BUN 15 Creatinine 0.9 Est GFR ( Amer) > 60 Est GFR (Non-Af Amer) > 60 POC Glucose (mg/dL) 299 H Random Glucose 330 H* D Calcium 7.9 L Phosphorus 1.5 L Magnesium 1.9 Total Bilirubin 0.7 AST 27 ALT 30 Alkaline Phosphatase 152 H D Total Protein 6.1 Albumin 3.2 Globulin 2.9 Albumin/Globulin Ratio 1.1 Urine Color Urine Appearance Urine pH Ur Specific [place] Urine Protein Urine Glucose (UA) Urine Ketones Urine Blood Urine Nitrate Urine Bilirubin Urine Urobilinogen Ur Leukocyte Esterase Urine RBC Urine WBC Ur Epithelial Cells Urine Bacteria Urine HCG, Qual 06/04/18 06:57 WBC RBC Hgb Hct MCV MCH MCHC RDW Plt Count MPV Sodium Potassium Chloride Carbon Dioxide Anion Gap BUN Creatinine Est GFR ( Amer) Est GFR (Non-Af Amer) POC Glucose (mg/dL) 242 H Random Glucose Calcium Phosphorus Magnesium Total Bilirubin AST ALT Alkaline Phosphatase Total Protein Albumin Globulin Albumin/Globulin Ratio Urine Color Urine Appearance Urine pH Ur Specific [place] Urine Protein Urine Glucose (UA) Urine Ketones Urine Blood Urine Nitrate Urine Bilirubin Urine Urobilinogen Ur Leukocyte Esterase Urine RBC Urine WBC Ur Epithelial Cells Urine Bacteria Urine HCG, Qual Assessment & Plan - Assessment and Plan (Free Text) Assessment: 43 yo BF with DM1 c/b gastroparesis presenting with DKA and N/V # Nausea and Vomiting: Likely multifactorial from DKA and known gastroparesis. No signs of obstruction on CT and w/o acute findings. Last EGD Nov 2016 with LA C Esophagitis, gastric and duodenal ulcers Bx negative for Hpylori, dysplasia /metaplasia). Reportedly may have had EGD at [facility] with botox injections since that time. Plan: - Recommend glycemic control here in acute setting as well as hot shot outpatient management - Symptomatic trt with ondansetron - Can trial erythromycin as inpatient - Smaller, frequent meals - Minimize or avoid narcotics due to GI side effects <Maxime Wong - Last Filed: 06/04/18 10:07> Meds - Medications Medications: Current Medications Amlodipine Besylate (Norvasc) 5 mg PO DAILY [facility] Last Admin: 06/04/18 09:31 Dose: 5 mg Pantoprazole Sodium (Protonix 40mg Ivpb) 40 mg in 100 mls @ 200 mls/hr IVPB 0600 [facility] Last Admin: 06/04/18 05:06 Dose: 200 mls/hr Lactated Ringer's (Lactated Ringer's) 1,000 mls @ 150 mls/hr IV .Q6H40M [facility] Last Admin: 06/04/18 08:18 Dose: 150 mls/hr Potassium Chloride (Potassium Chloride 20 Meq/100 Ml) 20 meq in 100 mls @ 50 mls/hr IVPB Q2H [facility] Stop: 06/04/18 12:14 Last Admin: 06/04/18 08:19 Dose: 50 mls/hr Insulin Detemir (Levemir) 12 unit SC HS [facility] Last Admin: 06/03/18 23:32 Dose: 12 units Insulin Human Lispro (Humalog Low) 0 units SC ACHS [facility] PRN Reason: Protocol Last Admin: 06/04/18 08:18 Dose: Not Given Insulin Human Lispro (Humalog) 6 units SC AC [facility] Last Admin: 06/04/18 07:57 Dose: 6 unit Ketorolac Tromethamine (Toradol) 30 mg IVP Q8 PRN PRN Reason: Pain, moderate (4-7) Last Admin: 06/04/18 03:02 Dose: 30 mg Lorazepam (Ativan) 0.5 mg PO TID PRN; Protocol PRN Reason: Agitation Last Admin: 06/04/18 03:05 Dose: 0.5 mg Ondansetron HCl (Zofran Inj) 4 mg IVP Q6 PRN PRN Reason: Nausea/Vomiting Last Admin: 06/04/18 03:03 Dose: 4 mg Polyethylene Glycol (Miralax) 17 gm PO DAILY PRN PRN Reason: Constipation Results - Vital Signs Recent Vital Signs: Last Vital Signs Temp 98.0 F 06/03/18 14:30 Pulse 84 06/04/18 09:31 Resp 93 H 06/04/18 08:55 BP 124/58 L 06/04/18 09:31 Pulse Ox 85 L 06/04/18 08:01 - Labs Result Diagrams: 06/04/18 05:45 06/04/18 05:45 Labs: Laboratory Results - last 24 hr 06/03/18 06/03/18 06/03/18 14:25 15:27 16:44 WBC RBC Hgb Hct MCV MCH MCHC RDW Plt Count MPV Sodium Potassium Chloride Carbon Dioxide Anion Gap BUN Creatinine Est GFR ( Amer) Est GFR (Non-Af Amer) POC Glucose (mg/dL) 312 H 277 H 165 H Random Glucose Calcium Phosphorus Magnesium Total Bilirubin AST ALT Alkaline Phosphatase Total Protein Albumin Globulin Albumin/Globulin Ratio Urine Color Urine Appearance Urine pH Ur Specific [place] Urine Protein Urine Glucose (UA) Urine Ketones Urine Blood Urine Nitrate Urine Bilirubin Urine Urobilinogen Ur Leukocyte Esterase Urine RBC Urine WBC Ur Epithelial Cells Urine Bacteria Urine HCG, Qual 06/03/18 06/03/18 06/03/18 17:40 18:24 19:42 WBC RBC Hgb Hct MCV MCH MCHC RDW Plt Count MPV Sodium Potassium Chloride Carbon Dioxide Anion Gap BUN Creatinine Est GFR ( Amer) Est GFR (Non-Af Amer) POC Glucose (mg/dL) 132 H 123 H Random Glucose Calcium Phosphorus Magnesium Total Bilirubin AST ALT Alkaline Phosphatase Total Protein Albumin Globulin Albumin/Globulin Ratio Urine Color Light yellow Urine Appearance Clear Urine pH 6.0 Ur Specific [place] >= 1.030 Urine Protein 100 H Urine Glucose (UA) >=1000 Urine Ketones >=80 Urine Blood Small H Urine Nitrate Negative Urine Bilirubin Small H Urine Urobilinogen 0.2 Ur Leukocyte Esterase Negative Urine RBC 2 - 5 Urine WBC 1 - 3 Ur Epithelial Cells 4 - 5 Urine Bacteria Small Urine HCG, Qual Negative 06/03/18 06/03/18 06/03/18 19:45 21:02 22:33 WBC RBC Hgb Hct MCV MCH MCHC RDW Plt Count MPV Sodium 139 Potassium 3.9 Chloride 101 Carbon Dioxide 21 Anion Gap 21 H BUN 17 Creatinine 0.8 Est GFR ( Amer) > 60 Est GFR (Non-Af Amer) > 60 POC Glucose (mg/dL) 93 345 H Random Glucose 118 H Calcium 8.9 Phosphorus Magnesium Total Bilirubin AST ALT Alkaline Phosphatase Total Protein Albumin Globulin Albumin/Globulin Ratio Urine Color Urine Appearance Urine pH Ur Specific [place] Urine Protein Urine Glucose (UA) Urine Ketones Urine Blood Urine Nitrate Urine Bilirubin Urine Urobilinogen Ur Leukocyte Esterase Urine RBC Urine WBC Ur Epithelial Cells Urine Bacteria Urine HCG, Qual 06/03/18 06/04/18 06/04/18 23:28 05:45 05:45 WBC 7.1 RBC 3.56 Hgb 9.4 L D Hct 27.8 L MCV 78.1 L MCH 26.4 MCHC 33.8 RDW 17.4 H Plt Count 366 MPV 9.1 Sodium 135 Potassium 3.2 L Chloride 95 L Carbon Dioxide 25 Anion Gap 18 BUN 15 Creatinine 0.9 Est GFR ( Amer) > 60 Est GFR (Non-Af Amer) > 60 POC Glucose (mg/dL) 299 H Random Glucose 330 H* D Calcium 7.9 L Phosphorus 1.5 L Magnesium 1.9 Total Bilirubin 0.7 AST 27 ALT 30 Alkaline Phosphatase 152 H D Total Protein 6.1 Albumin 3.2 Globulin 2.9 Albumin/Globulin Ratio 1.1 Urine Color Urine Appearance Urine pH Ur Specific [place] Urine Protein Urine Glucose (UA) Urine Ketones Urine Blood Urine Nitrate Urine Bilirubin Urine Urobilinogen Ur Leukocyte Esterase Urine RBC Urine WBC Ur Epithelial Cells Urine Bacteria Urine HCG, Qual 06/04/18 06:57 WBC RBC Hgb Hct MCV MCH MCHC RDW Plt Count MPV Sodium Potassium Chloride Carbon Dioxide Anion Gap BUN Creatinine Est GFR ( Amer) Est GFR (Non-Af Amer) POC Glucose (mg/dL) 242 H Random Glucose Calcium Phosphorus Magnesium Total Bilirubin AST ALT Alkaline Phosphatase Total Protein Albumin Globulin Albumin/Globulin Ratio Urine Color Urine Appearance Urine pH Ur Specific [place] Urine Protein Urine Glucose (UA) Urine Ketones Urine Blood Urine Nitrate Urine Bilirubin Urine Urobilinogen Ur Leukocyte Esterase Urine RBC Urine WBC Ur Epithelial Cells Urine Bacteria Urine HCG, Qual Attending/Attestation - Attestation I have personally seen and examined this patient.: Yes I have fully participated in the care of the patient.: Yes I have reviewed all pertinent clinical information: Yes Notes (Text): 06/04/18 10:01 I have seen and examined patient with GI fellow. Agree with above documentation with the following additions. In brief, this is a 43 year old female with history of uncontrolled DM, multiple prior hospitalizations for DKA , gastroparesis who presents to hospital with complaint of abdominal pain, nausea, vomiting which has been progressive over the past one week. On arrival to hospital patient found to be in DKA, currently receiving therapy in intensive care unit. She reports diffuse abdominal pain with multiple episodes of nausea and non-bloody emesis for the past 5-6 days. She claims to be compliant with diabetic regimen and is being followed by manager pricing at [facility]. She otherwise denies fever/chills, diarrhea, or change in bowel habits. She ate a few pieces of german toast this morning without difficulty. She had an EGD late last year by GI physician at [facility] as per patient. Additional physical examination: Abdomen: no palpable hepato/splenomegaly DM - uncontrolled Gastroparesis Abdominal pain, nausea, vomiting - secondary to DKA - Diet as tolerated - Anti-emetic therapy PRN - Strict glycemic control and management of DKA as per critical care and endocrine teams - Suggest use of promotility agent such as erythromycin, monitor for QT prolongation - Overall given progressive recurrent symptoms, patient may benefit from jejunostomy placement for long-term nutritional needs - Will continue to monitor patient clinical course
--- NOTE | 2018-06-04 13:19 | PN ---
DATE: 06/04/2018 SUBJECTIVE: I saw Shanelle in the Intensive Care Unit. She slept fairly well. Not talking that much. Still very tired, lethargic, but possibly a bit better. She is not retching or throwing up. No abdominal pain right now. She is on Ativan, insulin, lactated Ringer's, Levemir, MiraLax, Norvasc, potassium replacement, Protonix, Toradol, and Zofran. PHYSICAL EXAMINATION: VITAL SIGNS: Temperature 98, 93 pulse, 99/53 blood pressure, 18 respiratory rate [id number]% O2 sat. HEENT: Head is atraumatic, normocephalic. Throat is moist. NECK: Supple. HEART: Regular rate. LUNGS: Decreased breath sounds, but clear. ABDOMEN: Soft. Nontender. Positive bowel sounds. No guarding. No rebound. No CVA tenderness. A good abdominal exam. EXTREMITIES: No edema. LABORATORY DATA: She has a 7.1 white count; 9.4 hemoglobin, a little dilutional from all the fluids she is getting; 27.8 hematocrit with 366 platelet count. She has had a pH when she came in of 7.16 and sugar of 614. She has 135 sodium with 3.2 potassium, was replaced. BUN is 15, creatinine 0.9, GFR is greater than 60. Last blood sugar was 242. is 7.9, phosphorous 1.5, magnesium 1.9. Total bilirubin is 0.7, AST is 27, ALT is 30, alkaline phosphatase 152, total protein 6.1. Urine with small bacteria and alcohol level is less than 10. 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 She had a CAT scan of the abdomen and pelvis, which showed bilateral atelectasis and small amounts of fluid in the cul-de-sac, findings are similar to previous study. No acute intraabdominal findings, which is good. Chest x-ray, right IJ line in satisfactory position, no pneumothorax. We will continue with the IV fluids and the aggressive treatment in the Intensive Care Unit for the diabetic ketoacidosis. We will check her labs tomorrow. Hopefully, the diabetic ketoacidosis will subside, she will continue to improve. David Theodore DO [facility] # [id number] [place]
--- NOTE | 2018-06-04 13:45 | PN ---
DATE: 06/04/2018 SUBJECTIVE: The patient is seen and examined at bedside. She appears to be more alert and awake, however, complains of stomachache. PHYSICAL EXAMINATION: VITAL SIGNS: Blood pressure 141/105, heart rate 93, respiratory rate 18, oxygen saturation 100% on room air. HEENT: Head and neck atraumatic. LUNGS: Clear to auscultation bilaterally. HEART: Regular rate and rhythm. S1, S2 normal. ABDOMEN: Soft, nontender, nondistended. MUSCULOSKELETAL: No C/C/E. NEURO: The patient moves all extremities spontaneously. SKIN: Moist. PSYCHIATRIC: The patient is alert, a little bit somnolent, and in mild distress due to stomach ache. LABORATORY DATA: WBC 7.1, hemoglobin 9.4, platelet count 366. Sodium 135, potassium 3.2 (supplemented), glucose 242. AST 27, ALT 30, total bilirubin 0.7, alkaline phosphatase 152. MEDICATIONS: Norvasc, Levemir 12 units subcu at bedtime, lispro 6 units subcu before meals, regular insulin sliding scale low protocol, Toradol p.r.n., lactated Ringer at 150 mL per hour, Ativan p.r.n., Zofran p.r.n., potassium supplementation, and Protonix. ASSESSMENT AND PLAN: This is a 43-year-old lady who presented with diabetic ketoacidosis and was fluid resuscitated with receiving several liters boluses of IV fluids and continued on maintenance fluid along with starting insulin drip. The patient was seen by Dr. Campo who stopped insulin drip yesterday and switched her to longer-acting formulation of subcu insulin. She still has a little bit of stomachache and provided that the CAT scan of the abdomen and pelvis did not show any significant and/or acute intraabdominal pathology, I suspect patient may have a diabetic gastroparesis that led to nausea, vomiting, and currently stomachache. We are going to get GI consult for it. Meanwhile, the patient will be transferred to telemetry floor. IV fluids will be continued as it is unclear how much she will be able to tolerate oral hydration and nutrition. Peripherally inserted central catheter line will be placed (if unable to get PIV ) and central venous line will be removed. We will continue with deep venous thrombosis and gastric prophylaxis. Head of bed elevated more than 35 degrees. ccm time 40 min Murray Fregoso MD [facility] # [id number] [place]
--- NOTE | 2018-06-04 15:44 | CP.CCUPN ---
<Connor Nguyen - Last Filed: 06/04/18 15:40> CCU Subjective - Physician Review Subjective (Free Text): Connor Nguyen DO PGY-1, ICU Progress note for Dr. Fregoso Pt seen and examined at bedside. Pt appears tied, but states that her abdominal pain is slightly better. Pt denies vomiting since eating dinner last night, but reports that she continues to "spit up" clear liquid. Overnight, Pt was given her home meds of ativan for agitation, as well as Zofran for nausea and Toradol for pain. Pt's insulin gtt was stopped overnight as per Endo. Levemir, ISS low and Lispro 6 units AC was ordered by endocrinology. Pt states that she has been making urine. Pt denies headache, dizziness, chest pain, shortness of breath, N/ V/D, paresthesias. A 12-point ROS was obtained and is unremarkable except as above. CCU Objective - Vital Signs / Intake & Output Vital Signs (Last 4 hours): Vital Signs Pulse Resp BP 06/04/18 13:21 119 H 24 06/04/18 13:20 117 H 21 06/04/18 13:19 119 H 20 06/04/18 13:18 116 H 18 06/04/18 13:17 118 H 24 06/04/18 13:16 124 H 25 H 06/04/18 13:15 125 H 23 06/04/18 13:14 124 H 28 H 06/04/18 13:13 123 H 22 06/04/18 13:12 123 H 06/04/18 13:11 124 H 25 H 06/04/18 13:10 124 H 36 H 06/04/18 13:09 121 H 18 06/04/18 13:08 119 H 21 06/04/18 13:07 116 H 19 06/04/18 13:06 118 H 16 06/04/18 13:05 119 H 17 06/04/18 13:04 127 H 23 06/04/18 13:03 126 H 35 H 06/04/18 13:02 129 H 23 06/04/18 13:01 125 H 06/04/18 13:00 130/64 06/04/18 12:59 125 H 14 06/04/18 12:58 115 H 16 06/04/18 12:57 120 H 17 06/04/18 12:56 125 H 18 06/04/18 12:55 119 H 16 06/04/18 12:54 123 H 24 06/04/18 12:53 124 H 26 H 06/04/18 12:52 126 H 18 06/04/18 12:51 131 H 23 06/04/18 12:50 122 H 33 H 06/04/18 12:49 124 H 28 H 06/04/18 12:48 124 H 74 H 06/04/18 12:47 126 H 23 06/04/18 12:46 125 H 80 H 06/04/18 12:45 123 H 23 06/04/18 12:44 129 H 28 H 06/04/18 12:43 130 H 60 H 06/04/18 12:42 131 H 18 06/04/18 12:41 127 H 31 H 06/04/18 12:40 126 H 24 06/04/18 12:39 125 H 29 H 06/04/18 12:38 122 H 27 H 06/04/18 12:37 121 H 06/04/18 12:36 125 H 42 H 06/04/18 12:35 126 H 19 06/04/18 12:34 128 H 42 H 06/04/18 12:33 126 H 06/04/18 12:32 126 H 95 H Intake and Output (Last 8hrs): Intake & Output 06/04/18 06/04/18 06/04/18 06:59 14:59 22:59 Intake Total 1800 Balance 1800 Weight 73.936 kg Intake: IV 1800 NaBicarb 1800 - Physical Exam Head: Positive for: Atraumatic, Normocephalic Extroacular Muscles: Positive for: EOMI Conjunctiva: Positive for: Normal Mouth: Positive for: Moist Mucous Membranes Neck: Positive for: Normal Range of Motion. Negative for: Meningeal Signs Respiratory/Chest: Positive for: Clear to Auscultation, Good Air Exchange. Negative for: Respiratory Distress Cardiovascular: Positive for: Regular Rate and Rhythm, Normal S1, S2 Abdomen: Positive for: Tenderness (mild diffuse tenderness on deep palpation; greatest in LUQ). Negative for: Peritoneal Signs Back: Positive for: Normal Inspection. Negative for: CVA Tenderness Upper Extremity: Positive for: Normal Inspection, Capillary Refill < 2s. Negative for: Cyanosis Lower Extremity: Positive for: Normal Inspection, Neurovascularly Intact, Capillary Refill < 2 s. Negative for: Edema Neurological: Positive for: Motor Func Grossly Intact, Normal Sensory Function Skin: Positive for: Warm, Normal Color Psychiatric: Positive for: Alert, Oriented x 3, Normal Insight, Normal Concentration - Medications Active Medications: Active Medications Generic Name Dose Route Start Last Admin Trade Name Freq PRN Reason Stop Dose Admin Amlodipine Besylate 5 mg 06/04/18 10:00 06/04/18 09:31 Norvasc PO 5 mg DAILY MICHELLE Administration Pantoprazole Sodium 40 mg in 100 mls @ 200 mls/hr 06/04/18 06:00 06/04/18 05: 06 Protonix 40mg Ivpb IVPB 200 mls/hr 0600 MICHELLE Administration Lactated Ringer's 1,000 mls @ 150 mls/hr 06/04/18 08:15 06/04/18 08:18 Lactated Ringer's IV 150 mls/hr .[id number] MICHELLE Administration Insulin Detemir 24 unit 06/04/18 22:00 Levemir SC HS MICHELLE Insulin Human Lispro 0 units 06/03/18 22:00 06/04/18 11:59 Humalog Low SC Not Given ACHS MICHELLE Protocol Insulin Human Lispro 10 units 06/04/18 16:30 Humalog SC AC MICHELLE Ketorolac Tromethamine 30 mg 06/03/18 13:41 06/04/18 15:09 Toradol IVP 30 mg Q8 PRN Administration Pain, moderate (4-7) Lorazepam 0.5 mg 06/03/18 13:42 06/04/18 13:13 Ativan PO 0.5 mg TID PRN Administration Agitation Protocol Ondansetron HCl 4 mg 06/03/18 13:44 06/04/18 03:03 Zofran Inj IVP 4 mg Q6 PRN Administration Nausea/Vomiting Polyethylene Glycol 17 gm 06/03/18 13:43 Miralax PO DAILY PRN Constipation - Patient Studies Lab Studies: Microbiology Studies 06/03/18 13:55 Blood Culture - Preliminary Blood-Venous NO GROWTH AFTER 24 HOURS Lab Studies 06/04/18 06/04/18 06/04/18 Range/Units 06:57 05:45 05:45 WBC (4.5-11.0) 10^3/ul RBC (3.5-6.1) 10^6/uL Hgb (12.0-16.0) g/dL Hct (36.0-48.0) % MCV (80.0-105.0) fl MCH (25.0-35.0) pg MCHC (31.0-37.0) g/dl RDW (11.5-14.5) % Plt Count (120.0-450.0) 10^3/uL MPV (7.0-11.0) fl Sodium 135 (132-148) mmol/L Potassium 3.2 L (3.6-5.0) mmol/L Chloride 95 L (98-107) mmol/L Carbon Dioxide 25 (21-33) mmol/L Anion Gap 18 (10-20) BUN 15 (7-21) mg/dL Creatinine 0.9 (0.7-1.2) mg/dl Est GFR ( Amer) > 60 Est GFR (Non-Af Amer) > 60 POC Glucose (mg/dL) 242 H (65-110) mg/dL Random Glucose 330 H* D (70-110) mg/dL Hemoglobin A1c 10.4 H (4.2-6.5) % Calcium 7.9 L (8.4-10.5) mg/dL Phosphorus 1.5 L (2.5-4.5) mg/dL Magnesium 1.9 (1.7-2.2) mg/dL Total Bilirubin 0.7 (0.2-1.3) mg/dL AST 27 (14-36) U/L ALT 30 (7-56) U/L Alkaline Phosphatase 152 H D (38-126) U/L Total Protein 6.1 (5.8-8.3) g/dL Albumin 3.2 (3.0-4.8) g/dL Globulin 2.9 gm/dL Albumin/Globulin Ratio 1.1 (1.1-1.8) Urine Color (YELLOW) Urine Appearance (CLEAR) Urine pH (4.7-8.0) Ur Specific [place] (1.005-1.035) Urine Protein (<30 mg/dL) mg/dL Urine Glucose (UA) (NEGATIVE) mg/dL Urine Ketones (NEGATIVE) mg/dL Urine Blood (NEGATIVE) Urine Nitrate (NEGATIVE) Urine Bilirubin (NEGATIVE) Urine Urobilinogen (<1 E.U./dL) E.U./dL Ur Leukocyte Esterase (NEGATIVE) Bro/uL Urine RBC (0-2) /hpf Urine WBC (0-6) /hpf Ur Epithelial Cells (0-5) /hpf Urine Bacteria (NEG) Urine HCG, Qual (NEGATIVE) 06/04/18 06/03/18 06/03/18 Range/Units 05:45 23:28 22:33 WBC 7.1 (4.5-11.0) 10^3/ul RBC 3.56 (3.5-6.1) 10^6/uL Hgb 9.4 L D (12.0-16.0) g/dL Hct 27.8 L (36.0-48.0) % MCV 78.1 L (80.0-105.0) fl MCH 26.4 (25.0-35.0) pg MCHC 33.8 (31.0-37.0) g/dl RDW 17.4 H (11.5-14.5) % Plt Count 366 (120.0-450.0) 10^3/uL MPV 9.1 (7.0-11.0) fl Sodium (132-148) mmol/L Potassium (3.6-5.0) mmol/L Chloride (98-107) mmol/L Carbon Dioxide (21-33) mmol/L Anion Gap (10-20) BUN (7-21) mg/dL Creatinine (0.7-1.2) mg/dl Est GFR ( Amer) Est GFR (Non-Af Amer) POC Glucose (mg/dL) 299 H 345 H (65-110) mg/dL Random Glucose (70-110) mg/dL Hemoglobin A1c (4.2-6.5) % Calcium (8.4-10.5) mg/dL Phosphorus (2.5-4.5) mg/dL Magnesium (1.7-2.2) mg/dL Total Bilirubin (0.2-1.3) mg/dL AST (14-36) U/L ALT (7-56) U/L Alkaline Phosphatase (38-126) U/L Total Protein (5.8-8.3) g/dL Albumin (3.0-4.8) g/dL Globulin gm/dL Albumin/Globulin Ratio (1.1-1.8) Urine Color (YELLOW) Urine Appearance (CLEAR) Urine pH (4.7-8.0) Ur Specific [place] (1.005-1.035) Urine Protein (<30 mg/dL) mg/dL Urine Glucose (UA) (NEGATIVE) mg/dL Urine Ketones (NEGATIVE) mg/dL Urine Blood (NEGATIVE) Urine Nitrate (NEGATIVE) Urine Bilirubin (NEGATIVE) Urine Urobilinogen (<1 E.U./dL) E.U./dL Ur Leukocyte Esterase (NEGATIVE) Bro/uL Urine RBC (0-2) /hpf Urine WBC (0-6) /hpf Ur Epithelial Cells (0-5) /hpf Urine Bacteria (NEG) Urine HCG, Qual (NEGATIVE) 06/03/18 06/03/18 06/03/18 Range/Units 21:02 19:45 19:42 WBC (4.5-11.0) 10^3/ul RBC (3.5-6.1) 10^6/uL Hgb (12.0-16.0) g/dL Hct (36.0-48.0) % MCV (80.0-105.0) fl MCH (25.0-35.0) pg MCHC (31.0-37.0) g/dl RDW (11.5-14.5) % Plt Count (120.0-450.0) 10^3/uL MPV (7.0-11.0) fl Sodium 139 (132-148) mmol/L Potassium 3.9 (3.6-5.0) mmol/L Chloride 101 (98-107) mmol/L Carbon Dioxide 21 (21-33) mmol/L Anion Gap 21 H (10-20) BUN 17 (7-21) mg/dL Creatinine 0.8 (0.7-1.2) mg/dl Est GFR ( Amer) > 60 Est GFR (Non-Af Amer) > 60 POC Glucose (mg/dL) 93 123 H (65-110) mg/dL Random Glucose 118 H (70-110) mg/dL Hemoglobin A1c (4.2-6.5) % Calcium 8.9 (8.4-10.5) mg/dL Phosphorus (2.5-4.5) mg/dL Magnesium (1.7-2.2) mg/dL Total Bilirubin (0.2-1.3) mg/dL AST (14-36) U/L ALT (7-56) U/L Alkaline Phosphatase (38-126) U/L Total Protein (5.8-8.3) g/dL Albumin (3.0-4.8) g/dL Globulin gm/dL Albumin/Globulin Ratio (1.1-1.8) Urine Color (YELLOW) Urine Appearance (CLEAR) Urine pH (4.7-8.0) Ur Specific [place] (1.005-1.035) Urine Protein (<30 mg/dL) mg/dL Urine Glucose (UA) (NEGATIVE) mg/dL Urine Ketones (NEGATIVE) mg/dL Urine Blood (NEGATIVE) Urine Nitrate (NEGATIVE) Urine Bilirubin (NEGATIVE) Urine Urobilinogen (<1 E.U./dL) E.U./dL Ur Leukocyte Esterase (NEGATIVE) Bro/uL Urine RBC (0-2) /hpf Urine WBC (0-6) /hpf Ur Epithelial Cells (0-5) /hpf Urine Bacteria (NEG) Urine HCG, Qual (NEGATIVE) 06/03/18 06/03/18 06/03/18 Range/Units 18:24 17:40 16:44 WBC (4.5-11.0) 10^3/ul RBC (3.5-6.1) 10^6/uL Hgb (12.0-16.0) g/dL Hct (36.0-48.0) % MCV (80.0-105.0) fl MCH (25.0-35.0) pg MCHC (31.0-37.0) g/dl RDW (11.5-14.5) % Plt Count (120.0-450.0) 10^3/uL MPV (7.0-11.0) fl Sodium (132-148) mmol/L Potassium (3.6-5.0) mmol/L Chloride (98-107) mmol/L Carbon Dioxide (21-33) mmol/L Anion Gap (10-20) BUN (7-21) mg/dL Creatinine (0.7-1.2) mg/dl Est GFR ( Amer) Est GFR (Non-Af Amer) POC Glucose (mg/dL) 132 H 165 H (65-110) mg/dL Random Glucose (70-110) mg/dL Hemoglobin A1c (4.2-6.5) % Calcium (8.4-10.5) mg/dL Phosphorus (2.5-4.5) mg/dL Magnesium (1.7-2.2) mg/dL Total Bilirubin (0.2-1.3) mg/dL AST (14-36) U/L ALT (7-56) U/L Alkaline Phosphatase (38-126) U/L Total Protein (5.8-8.3) g/dL Albumin (3.0-4.8) g/dL Globulin gm/dL Albumin/Globulin Ratio (1.1-1.8) Urine Color Light yellow (YELLOW) Urine Appearance Clear (CLEAR) Urine pH 6.0 (4.7-8.0) Ur Specific [place] >= 1.030 (1.005-1.035) Urine Protein 100 H (<30 mg/dL) mg/dL Urine Glucose (UA) >=1000 (NEGATIVE) mg/dL Urine Ketones >=80 (NEGATIVE) mg/dL Urine Blood Small H (NEGATIVE) Urine Nitrate Negative (NEGATIVE) Urine Bilirubin Small H (NEGATIVE) Urine Urobilinogen 0.2 (<1 E.U./dL) E.U./dL Ur Leukocyte Esterase Negative (NEGATIVE) Bro/uL Urine RBC 2 - 5 (0-2) /hpf Urine WBC 1 - 3 (0-6) /hpf Ur Epithelial Cells 4 - 5 (0-5) /hpf Urine Bacteria Small (NEG) Urine HCG, Qual Negative (NEGATIVE) Laboratory Results - last 24 hr 06/03/18 06/03/18 06/03/18 16:44 17:40 18:24 WBC RBC Hgb Hct MCV MCH MCHC RDW Plt Count MPV Sodium Potassium Chloride Carbon Dioxide Anion Gap BUN Creatinine Est GFR ( Amer) Est GFR (Non-Af Amer) POC Glucose (mg/dL) 165 H 132 H Random Glucose Hemoglobin A1c Calcium Phosphorus Magnesium Total Bilirubin AST ALT Alkaline Phosphatase Total Protein Albumin Globulin Albumin/Globulin Ratio Urine Color Light yellow Urine Appearance Clear Urine pH 6.0 Ur Specific [place] >= 1.030 Urine Protein 100 H Urine Glucose (UA) >=1000 Urine Ketones >=80 Urine Blood Small H Urine Nitrate Negative Urine Bilirubin Small H Urine Urobilinogen 0.2 Ur Leukocyte Esterase Negative Urine RBC 2 - 5 Urine WBC 1 - 3 Ur Epithelial Cells 4 - 5 Urine Bacteria Small Urine HCG, Qual Negative 06/03/18 06/03/18 06/03/18 19:42 19:45 21:02 WBC RBC Hgb Hct MCV MCH MCHC RDW Plt Count MPV Sodium 139 Potassium 3.9 Chloride 101 Carbon Dioxide 21 Anion Gap 21 H BUN 17 Creatinine 0.8 Est GFR ( Amer) > 60 Est GFR (Non-Af Amer) > 60 POC Glucose (mg/dL) 123 H 93 Random Glucose 118 H Hemoglobin A1c Calcium 8.9 Phosphorus Magnesium Total Bilirubin AST ALT Alkaline Phosphatase Total Protein Albumin Globulin Albumin/Globulin Ratio Urine Color Urine Appearance Urine pH Ur Specific [place] Urine Protein Urine Glucose (UA) Urine Ketones Urine Blood Urine Nitrate Urine Bilirubin Urine Urobilinogen Ur Leukocyte Esterase Urine RBC Urine WBC Ur Epithelial Cells Urine Bacteria Urine HCG, Qual 06/03/18 06/03/18 06/04/18 22:33 23:28 05:45 WBC 7.1 RBC 3.56 Hgb 9.4 L D Hct 27.8 L MCV 78.1 L MCH 26.4 MCHC 33.8 RDW 17.4 H Plt Count 366 MPV 9.1 Sodium Potassium Chloride Carbon Dioxide Anion Gap BUN Creatinine Est GFR ( Amer) Est GFR (Non-Af Amer) POC Glucose (mg/dL) 345 H 299 H Random Glucose Hemoglobin A1c Calcium Phosphorus Magnesium Total Bilirubin AST ALT Alkaline Phosphatase Total Protein Albumin Globulin Albumin/Globulin Ratio Urine Color Urine Appearance Urine pH Ur Specific [place] Urine Protein Urine Glucose (UA) Urine Ketones Urine Blood Urine Nitrate Urine Bilirubin Urine Urobilinogen Ur Leukocyte Esterase Urine RBC Urine WBC Ur Epithelial Cells Urine Bacteria Urine HCG, Qual 06/04/18 06/04/18 06/04/18 05:45 05:45 06:57 WBC RBC Hgb Hct MCV MCH MCHC RDW Plt Count MPV Sodium 135 Potassium 3.2 L Chloride 95 L Carbon Dioxide 25 Anion Gap 18 BUN 15 Creatinine 0.9 Est GFR ( Amer) > 60 Est GFR (Non-Af Amer) > 60 POC Glucose (mg/dL) 242 H Random Glucose 330 H* D Hemoglobin A1c 10.4 H Calcium 7.9 L Phosphorus 1.5 L Magnesium 1.9 Total Bilirubin 0.7 AST 27 ALT 30 Alkaline Phosphatase 152 H D Total Protein 6.1 Albumin 3.2 Globulin 2.9 Albumin/Globulin Ratio 1.1 Urine Color Urine Appearance Urine pH Ur Specific [place] Urine Protein Urine Glucose (UA) Urine Ketones Urine Blood Urine Nitrate Urine Bilirubin Urine Urobilinogen Ur Leukocyte Esterase Urine RBC Urine WBC Ur Epithelial Cells Urine Bacteria Urine HCG, Qual Fingerstick Blood Sugar Results: 132 Review of Systems - Review of Systems All systems: reviewed and no additional remarkable complaints except (as per HPI ) Critical Care Progress Note - Prophylaxis GI Prophylaxis GI: PPI - Nutrition Nutrition: Nutrition Category Date Time Status Consistent Carbohydrate [DIET] Diets 06/03/18 Breakfast Ordered Assessment/Plan - Assessment and Plan (Free Text) Assessment: 43 year old AA female who presents with about a week long history of nausea, vomiting, diarrhea. Pt is unable to eat or drink. Found to be very lethargic, in severe metabolic acidosis and highly elevated blood glucose. ABG pH 7.16, bicarb<5, gluc 439. AG 31. Placed on Insulin gtt and accepted to the ICU. As per endo, pt's insulin gtt has been discontinued and she is now on Levemir, ISS low, Lispro 6 units AC. Anion gap is currently 15. Plan: Neuro: - monitor for mental status changes Cardio: - maintain MAP>65 mmHg Pulm: - maintain spo2>90% - HoB > 35 degrees GI: - Abd/pelv ct (06/03) shows bilateral adnexal cysts and small amount of fluid in the cul-de-sac. No acute intra-abdominal findings - pt's lingering abdominal pain is likely due diabetic gastropathy - will f/u with GI recs - continue PTX for GI ppx - continue CCD Endo: - maintain euglycemia - insulin gtt has been discontinue - Levemir, ISS low, Lispro 6 units AC as per endo - endo recs appreciated Renal: - maintain euvolemia - central venous line will be removed and pt will received fluids and medications through peripheral iv as needed - AG is 15 - discontinue d5/bicarb, start LR for maintenance - pt's potassium was WNL for the past 2 CMPs, but her potassium repleted as last reading was 3.2 - continue to replete electrolytes as needed ID: - there is still no leukocytosis - Blood cultures pending - urine culture pending Heme: - Hgb has decreased to 9.4 from 11.8; likely dilutional effect of large amount of fluid pt has received PPX: PTX for GI; SCDs for VTE Dispo: Pt is stable and safe for transfer to telemetry; Dr. Theodore is aware and agrees with transfer Case was reviewed and discussed with attending physician, Dr. Fregoso <Murray Fregoso - Last Filed: 06/04/18 16:25> CCU Objective - Vital Signs / Intake & Output Vital Signs (Last 4 hours): Vital Signs Pulse Resp BP 06/04/18 13:21 119 H 24 06/04/18 13:20 117 H 21 06/04/18 13:19 119 H 20 06/04/18 13:18 116 H 18 06/04/18 13:17 118 H 24 06/04/18 13:16 124 H 25 H 06/04/18 13:15 125 H 23 06/04/18 13:14 124 H 28 H 06/04/18 13:13 123 H 22 06/04/18 13:12 123 H 06/04/18 13:11 124 H 25 H 06/04/18 13:10 124 H 36 H 06/04/18 13:09 121 H 18 06/04/18 13:08 119 H 21 06/04/18 13:07 116 H 19 06/04/18 13:06 118 H 16 06/04/18 13:05 119 H 17 06/04/18 13:04 127 H 23 06/04/18 13:03 126 H 35 H 06/04/18 13:02 129 H 23 06/04/18 13:01 125 H 06/04/18 13:00 130/64 06/04/18 12:59 125 H 14 06/04/18 12:58 115 H 16 06/04/18 12:57 120 H 17 06/04/18 12:56 125 H 18 06/04/18 12:55 119 H 16 06/04/18 12:54 123 H 24 06/04/18 12:53 124 H 26 H 06/04/18 12:52 126 H 18 06/04/18 12:51 131 H 23 06/04/18 12:50 122 H 33 H 06/04/18 12:49 124 H 28 H 06/04/18 12:48 124 H 74 H 06/04/18 12:47 126 H 23 06/04/18 12:46 125 H 80 H 06/04/18 12:45 123 H 23 06/04/18 12:44 129 H 28 H 06/04/18 12:43 130 H 60 H 06/04/18 12:42 131 H 18 06/04/18 12:41 127 H 31 H 06/04/18 12:40 126 H 24 06/04/18 12:39 125 H 29 H 06/04/18 12:38 122 H 27 H 06/04/18 12:37 121 H 19 06/04/18 12:36 125 H 42 H 06/04/18 12:35 126 H 19 06/04/18 12:34 128 H 42 H 06/04/18 12:33 126 H 06/04/18 12:32 126 H 95 H Intake and Output (Last 8hrs): Intake & Output 06/04/18 06/04/18 06/04/18 06:59 14:59 22:59 Intake Total 1800 Balance 1800 Weight 163 lb Intake: IV 1800 NaBicarb 1800 - Medications Active Medications: Active Medications Generic Name Dose Route Start Last Admin Trade Name Freq PRN Reason Stop Dose Admin Amlodipine Besylate 5 mg 06/04/18 10:00 06/04/18 09:31 Norvasc PO 5 mg DAILY MICHELLE Administration Pantoprazole Sodium 40 mg in 100 mls @ 200 mls/hr 06/04/18 06:00 06/04/18 05: 06 Protonix 40mg Ivpb IVPB 200 mls/hr 0600 MICHELLE Administration Lactated Ringer's 1,000 mls @ 150 mls/hr 06/04/18 08:15 06/04/18 08:18 Lactated Ringer's IV 150 mls/hr .Q6H40M MICHELLE Administration Insulin Detemir 24 unit 06/04/18 22:00 Levemir SC HS MICHELLE Insulin Human Lispro 0 units 06/03/18 22:00 06/04/18 11:59 Humalog Low SC Not Given ACHS [facility] Protocol Insulin Human Lispro 10 units 06/04/18 16:30 Humalog SC AC MICHELLE Ketorolac Tromethamine 30 mg 06/03/18 13:41 06/04/18 15:09 Toradol IVP 30 mg Q8 PRN Administration Pain, moderate (4-7) Lorazepam 0.5 mg 06/03/18 13:42 06/04/18 13:13 Ativan PO 0.5 mg TID PRN Administration Agitation Protocol Ondansetron HCl 4 mg 06/03/18 13:44 06/04/18 03:03 Zofran Inj IVP 4 mg Q6 PRN Administration Nausea/Vomiting Polyethylene Glycol 17 gm 06/03/18 13:43 Miralax PO DAILY PRN Constipation - Patient Studies Lab Studies: Microbiology Studies 06/03/18 13:55 Blood Culture - Preliminary Blood-Venous NO GROWTH AFTER 24 HOURS Lab Studies 06/04/18 06/04/18 06/04/18 Range/Units 06:57 05:45 05:45 WBC (4.5-11.0) 10^3/ul RBC (3.5-6.1) 10^6/uL Hgb (12.0-16.0) g/dL Hct (36.0-48.0) % MCV (80.0-105.0) fl MCH (25.0-35.0) pg MCHC (31.0-37.0) g/dl RDW (11.5-14.5) % Plt Count (120.0-450.0) 10^3/uL MPV (7.0-11.0) fl Sodium 135 (132-148) mmol/L Potassium 3.2 L (3.6-5.0) mmol/L Chloride 95 L (98-107) mmol/L Carbon Dioxide 25 (21-33) mmol/L Anion Gap 18 (10-20) BUN 15 (7-21) mg/dL Creatinine 0.9 (0.7-1.2) mg/dl Est GFR ( Amer) > 60 Est GFR (Non-Af Amer) > 60 POC Glucose (mg/dL) 242 H (65-110) mg/dL Random Glucose 330 H* D (70-110) mg/dL Hemoglobin A1c 10.4 H (4.2-6.5) % Calcium 7.9 L (8.4-10.5) mg/dL Phosphorus 1.5 L (2.5-4.5) mg/dL Magnesium 1.9 (1.7-2.2) mg/dL Total Bilirubin 0.7 (0.2-1.3) mg/dL AST 27 (14-36) U/L ALT 30 (7-56) U/L Alkaline Phosphatase 152 H D (38-126) U/L Total Protein 6.1 (5.8-8.3) g/dL Albumin 3.2 (3.0-4.8) g/dL Globulin 2.9 gm/dL Albumin/Globulin Ratio 1.1 (1.1-1.8) Urine Color (YELLOW) Urine Appearance (CLEAR) Urine pH (4.7-8.0) Ur Specific [place] (1.005-1.035) Urine Protein (<30 mg/dL) mg/dL Urine Glucose (UA) (NEGATIVE) mg/dL Urine Ketones (NEGATIVE) mg/dL Urine Blood (NEGATIVE) Urine Nitrate (NEGATIVE) Urine Bilirubin (NEGATIVE) Urine Urobilinogen (<1 E.U./dL) E.U./dL Ur Leukocyte Esterase (NEGATIVE) Bro/uL Urine RBC (0-2) /hpf Urine WBC (0-6) /hpf Ur Epithelial Cells (0-5) /hpf Urine Bacteria (NEG) Urine HCG, Qual (NEGATIVE) 06/04/18 06/03/18 06/03/18 Range/Units 05:45 23:28 22:33 WBC 7.1 (4.5-11.0) 10^3/ul RBC 3.56 (3.5-6.1) 10^6/uL Hgb 9.4 L D (12.0-16.0) g/dL Hct 27.8 L (36.0-48.0) % MCV 78.1 L (80.0-105.0) fl MCH 26.4 (25.0-35.0) pg MCHC 33.8 (31.0-37.0) g/dl RDW 17.4 H (11.5-14.5) % Plt Count 366 (120.0-450.0) 10^3/uL MPV 9.1 (7.0-11.0) fl Sodium (132-148) mmol/L Potassium (3.6-5.0) mmol/L Chloride (98-107) mmol/L Carbon Dioxide (21-33) mmol/L Anion Gap (10-20) BUN (7-21) mg/dL Creatinine (0.7-1.2) mg/dl Est GFR ( Amer) Est GFR (Non-Af Amer) POC Glucose (mg/dL) 299 H 345 H (65-110) mg/dL Random Glucose (70-110) mg/dL Hemoglobin A1c (4.2-6.5) % Calcium (8.4-10.5) mg/dL Phosphorus (2.5-4.5) mg/dL Magnesium (1.7-2.2) mg/dL Total Bilirubin (0.2-1.3) mg/dL AST (14-36) U/L ALT (7-56) U/L Alkaline Phosphatase (38-126) U/L Total Protein (5.8-8.3) g/dL Albumin (3.0-4.8) g/dL Globulin gm/dL Albumin/Globulin Ratio (1.1-1.8) Urine Color (YELLOW) Urine Appearance (CLEAR) Urine pH (4.7-8.0) Ur Specific [place] (1.005-1.035) Urine Protein (<30 mg/dL) mg/dL Urine Glucose (UA) (NEGATIVE) mg/dL Urine Ketones (NEGATIVE) mg/dL Urine Blood (NEGATIVE) Urine Nitrate (NEGATIVE) Urine Bilirubin (NEGATIVE) Urine Urobilinogen (<1 E.U./dL) E.U./dL Ur Leukocyte Esterase (NEGATIVE) Bro/uL Urine RBC (0-2) /hpf Urine WBC (0-6) /hpf Ur Epithelial Cells (0-5) /hpf Urine Bacteria (NEG) Urine HCG, Qual (NEGATIVE) 06/03/18 06/03/18 06/03/18 Range/Units 21:02 19:45 19:42 WBC (4.5-11.0) 10^3/ul RBC (3.5-6.1) 10^6/uL Hgb (12.0-16.0) g/dL Hct (36.0-48.0) % MCV (80.0-105.0) fl MCH (25.0-35.0) pg MCHC (31.0-37.0) g/dl RDW (11.5-14.5) % Plt Count (120.0-450.0) 10^3/uL MPV (7.0-11.0) fl Sodium 139 (132-148) mmol/L Potassium 3.9 (3.6-5.0) mmol/L Chloride 101 (98-107) mmol/L Carbon Dioxide 21 (21-33) mmol/L Anion Gap 21 H (10-20) BUN 17 (7-21) mg/dL Creatinine 0.8 (0.7-1.2) mg/dl Est GFR ( Amer) > 60 Est GFR (Non-Af Amer) > 60 POC Glucose (mg/dL) 93 123 H (65-110) mg/dL Random Glucose 118 H (70-110) mg/dL Hemoglobin A1c (4.2-6.5) % Calcium 8.9 (8.4-10.5) mg/dL Phosphorus (2.5-4.5) mg/dL Magnesium (1.7-2.2) mg/dL Total Bilirubin (0.2-1.3) mg/dL AST (14-36) U/L ALT (7-56) U/L Alkaline Phosphatase (38-126) U/L Total Protein (5.8-8.3) g/dL Albumin (3.0-4.8) g/dL Globulin gm/dL Albumin/Globulin Ratio (1.1-1.8) Urine Color (YELLOW) Urine Appearance (CLEAR) Urine pH (4.7-8.0) Ur Specific [place] (1.005-1.035) Urine Protein (<30 mg/dL) mg/dL Urine Glucose (UA) (NEGATIVE) mg/dL Urine Ketones (NEGATIVE) mg/dL Urine Blood (NEGATIVE) Urine Nitrate (NEGATIVE) Urine Bilirubin (NEGATIVE) Urine Urobilinogen (<1 E.U./dL) E.U./dL Ur Leukocyte Esterase (NEGATIVE) Bro/uL Urine RBC (0-2) /hpf Urine WBC (0-6) /hpf Ur Epithelial Cells (0-5) /hpf Urine Bacteria (NEG) Urine HCG, Qual (NEGATIVE) 06/03/18 06/03/18 06/03/18 Range/Units 18:24 17:40 16:44 WBC (4.5-11.0) 10^3/ul RBC (3.5-6.1) 10^6/uL Hgb (12.0-16.0) g/dL Hct (36.0-48.0) % MCV (80.0-105.0) fl MCH (25.0-35.0) pg MCHC (31.0-37.0) g/dl RDW (11.5-14.5) % Plt Count (120.0-450.0) 10^3/uL MPV (7.0-11.0) fl Sodium (132-148) mmol/L Potassium (3.6-5.0) mmol/L Chloride (98-107) mmol/L Carbon Dioxide (21-33) mmol/L Anion Gap (10-20) BUN (7-21) mg/dL Creatinine (0.7-1.2) mg/dl Est GFR ( Amer) Est GFR (Non-Af Amer) POC Glucose (mg/dL) 132 H 165 H (65-110) mg/dL Random Glucose (70-110) mg/dL Hemoglobin A1c (4.2-6.5) % Calcium (8.4-10.5) mg/dL Phosphorus (2.5-4.5) mg/dL Magnesium (1.7-2.2) mg/dL Total Bilirubin (0.2-1.3) mg/dL AST (14-36) U/L ALT (7-56) U/L Alkaline Phosphatase (38-126) U/L Total Protein (5.8-8.3) g/dL Albumin (3.0-4.8) g/dL Globulin gm/dL Albumin/Globulin Ratio (1.1-1.8) Urine Color Light yellow (YELLOW) Urine Appearance Clear (CLEAR) Urine pH 6.0 (4.7-8.0) Ur Specific [place] >= 1.030 (1.005-1.035) Urine Protein 100 H (<30 mg/dL) mg/dL Urine Glucose (UA) >=1000 (NEGATIVE) mg/dL Urine Ketones >=80 (NEGATIVE) mg/dL Urine Blood Small H (NEGATIVE) Urine Nitrate Negative (NEGATIVE) Urine Bilirubin Small H (NEGATIVE) Urine Urobilinogen 0.2 (<1 E.U./dL) E.U./dL Ur Leukocyte Esterase Negative (NEGATIVE) Bro/uL Urine RBC 2 - 5 (0-2) /hpf Urine WBC 1 - 3 (0-6) /hpf Ur Epithelial Cells 4 - 5 (0-5) /hpf Urine Bacteria Small (NEG) Urine HCG, Qual Negative (NEGATIVE) Laboratory Results - last 24 hr 06/03/18 06/03/18 06/03/18 16:44 17:40 18:24 WBC RBC Hgb Hct MCV MCH MCHC RDW Plt Count MPV Sodium Potassium Chloride Carbon Dioxide Anion Gap BUN Creatinine Est GFR ( Amer) Est GFR (Non-Af Amer) POC Glucose (mg/dL) 165 H 132 H Random Glucose Hemoglobin A1c Calcium Phosphorus Magnesium Total Bilirubin AST ALT Alkaline Phosphatase Total Protein Albumin Globulin Albumin/Globulin Ratio Urine Color Light yellow Urine Appearance Clear Urine pH 6.0 Ur Specific [place] >= 1.030 Urine Protein 100 H Urine Glucose (UA) >=1000 Urine Ketones >=80 Urine Blood Small H Urine Nitrate Negative Urine Bilirubin Small H Urine Urobilinogen 0.2 Ur Leukocyte Esterase Negative Urine RBC 2 - 5 Urine WBC 1 - 3 Ur Epithelial Cells 4 - 5 Urine Bacteria Small Urine HCG, Qual Negative 06/03/18 06/03/18 06/03/18 19:42 19:45 21:02 WBC RBC Hgb Hct MCV MCH MCHC RDW Plt Count MPV Sodium 139 Potassium 3.9 Chloride 101 Carbon Dioxide 21 Anion Gap 21 H BUN 17 Creatinine 0.8 Est GFR ( Amer) > 60 Est GFR (Non-Af Amer) > 60 POC Glucose (mg/dL) 123 H 93 Random Glucose 118 H Hemoglobin A1c Calcium 8.9 Phosphorus Magnesium Total Bilirubin AST ALT Alkaline Phosphatase Total Protein Albumin Globulin Albumin/Globulin Ratio Urine Color Urine Appearance Urine pH Ur Specific [place] Urine Protein Urine Glucose (UA) Urine Ketones Urine Blood Urine Nitrate Urine Bilirubin Urine Urobilinogen Ur Leukocyte Esterase Urine RBC Urine WBC Ur Epithelial Cells Urine Bacteria Urine HCG, Qual 06/03/18 06/03/18 06/04/18 22:33 23:28 05:45 WBC 7.1 RBC 3.56 Hgb 9.4 L D Hct 27.8 L MCV 78.1 L MCH 26.4 MCHC 33.8 RDW 17.4 H Plt Count 366 MPV 9.1 Sodium Potassium Chloride Carbon Dioxide Anion Gap BUN Creatinine Est GFR ( Amer) Est GFR (Non-Af Amer) POC Glucose (mg/dL) 345 H 299 H Random Glucose Hemoglobin A1c Calcium Phosphorus Magnesium Total Bilirubin AST ALT Alkaline Phosphatase Total Protein Albumin Globulin Albumin/Globulin Ratio Urine Color Urine Appearance Urine pH Ur Specific [place] Urine Protein Urine Glucose (UA) Urine Ketones Urine Blood Urine Nitrate Urine Bilirubin Urine Urobilinogen Ur Leukocyte Esterase Urine RBC Urine WBC Ur Epithelial Cells Urine Bacteria Urine HCG, Qual 06/04/18 06/04/18 06/04/18 05:45 05:45 06:57 WBC RBC Hgb Hct MCV MCH MCHC RDW Plt Count MPV Sodium 135 Potassium 3.2 L Chloride 95 L Carbon Dioxide 25 Anion Gap 18 BUN 15 Creatinine 0.9 Est GFR ( Amer) > 60 Est GFR (Non-Af Amer) > 60 POC Glucose (mg/dL) 242 H Random Glucose 330 H* D Hemoglobin A1c 10.4 H Calcium 7.9 L Phosphorus 1.5 L Magnesium 1.9 Total Bilirubin 0.7 AST 27 ALT 30 Alkaline Phosphatase 152 H D Total Protein 6.1 Albumin 3.2 Globulin 2.9 Albumin/Globulin Ratio 1.1 Urine Color Urine Appearance Urine pH Ur Specific [place] Urine Protein Urine Glucose (UA) Urine Ketones Urine Blood Urine Nitrate Urine Bilirubin Urine Urobilinogen Ur Leukocyte Esterase Urine RBC Urine WBC Ur Epithelial Cells Urine Bacteria Urine HCG, Qual Critical Care Progress Note - Nutrition Nutrition: Nutrition Category Date Time Status Consistent Carbohydrate [DIET] Diets 06/03/18 Breakfast Ordered Attending/Attestation - Attestation I have personally seen and examined this patient.: Yes I have fully participated in the care of the patient.: Yes I have reviewed all pertinent clinical information: Yes Notes (Text): 06/04/18 16:[address] Fregoso note
[2018-06-04 17:21] LABS: BLOOD UREA NITROGEN 13 mg/dL (7-21); CALCIUM 7.7 mg/dL (8.4-10.5); GFR AFRICAN-AMERICAN > 60; GFR NON-AFRICAN AMERICAN > 60
--- NOTE | 2018-06-04 20:06 | PN ---
DATE: 06/04/2018 ENDOCRINOLOGY FOLLOWUP LOCATION: CCU 129, room 2. SUBJECTIVE: This is a 43-year-old female with recent uncontrolled type 1 insulin-dependent diabetes, presenting here with diabetic ketoacidosis and dehydration and concomitant supervening nausea, dyspepsia, and intractable vomiting episodes and is being followed closely now for metabolic management. Her glucose values are fluctuating as noted with improving oral intake as per the nursing staff. Her latest chemistry shows a BUN of 15, sodium 135, potassium 3.2, chloride 95, CO2 of 25, glucose 330, and creatinine 0.9. Her glucose levels overnight have ranged from 242 to 299 and 345 mg/dL. So, at this time, we will modify once again her basal and bolus insulin regimen and increase the Humalog to 10 units subcu t.i.d. before meals to start today. We will also titrate her basal insulin with Levemir to be given as 24 units subcu at bedtime daily to start tonight. We will continue to modify coverage scale to obviate hypoglycemia and detailed orders have been given. We will also continue the IV hydration as given with lactated ringers running up to 150 mL per hour to fully replenish her lost fluids and electrolytes accordingly. We will follow this. Tamara Campo MD
[2018-06-04] MEDS: Insulin Detemir 100 units/ml Vial (Levemir) SC SCH (22:24)
[2018-06-05] MEDS: Pantoprazole 40mg/100mL NS 40 MG/100 ML BAG IVPB SCH (05:26)
[2018-06-05] MEDS: Lactated Ringer's 1,000 ML IV SCH ×3 (05:27→16:53)
[2018-06-05 06:21] LABS: HEMOGLOBIN 9.8 g/dL (12.0-16.0); MEAN CELL VOLUME 79.6 fl (80.0-105.0); MEAN CORPUSCULAR HGB CONC 32.7 g/dl (31.0-37.0); MEAN PLATELET VOLUME 8.4 fl (7.0-11.0); RBC 3.77 10^6/uL (3.5-6.1); WHITE BLOOD COUNT 8.1 10^3/ul (4.5-11.0)
[2018-06-05 07:14] LABS: ALB/GLOB RATIO 1.1 (1.1-1.8); ALBUMIN 3.3 g/dL (3.0-4.8); ALT/SGPT 32 U/L (7-56); AST/SGOT 21 U/L (14-36); BLOOD UREA NITROGEN 13 mg/dL (7-21); CALCIUM 8.3 mg/dL (8.4-10.5); GFR AFRICAN-AMERICAN > 60; GFR NON-AFRICAN AMERICAN > 60
[2018-06-05] MEDS: Insulin Lispro (humaLOG) LOW Coverage SC SCH ×4 (07:30→22:00)
[2018-06-05] MEDS: Insulin Lispro 1 UNITS/0.01 ML SC SCH ×3 (09:40→17:29)
[2018-06-05] MEDS ORDERED: Potassium Chloride 20 mEq ER Tab PO ONE (11:42)
--- NOTE | 2018-06-05 13:31 | PN ---
DATE: 06/05/2018 SUBJECTIVE: She is in the Intensive Care Unit. She is very tired, very lethargic, very much in pain. She is on Ativan, insulin, lactated Ringer's, Levemir, MiraLax, Norvasc, Protonix, Toradol and Zofran. She is very uncomfortable. PHYSICAL EXAMINATION: VITAL SIGNS: She has 98 temperature, 95 pulse, 100/47 blood pressure, 20 respiratory rate, 98% O2 sat on room air. HEENT: Head is atraumatic, normocephalic. HEART: Regular rate. LUNGS: Decreased breath sounds. ABDOMEN: Soft. Decreased bowel sounds, but nontender. No guarding, no rebound. No CVA tenderness. EXTREMITIES: No edema. LABORATORY DATA: She has 8.1 white count, 9.8 hemoglobin, 30 hematocrit with 299 platelets. She did have a 614 glucose when she came in with a 7.16 pH. She was in diabetic ketoacidosis. She has 139 sodium, potassium 3.4. We will replace potassium. BUN 13, creatinine 0.9, GFR is greater than 60, sugar is 124, calcium is 8.3, total bili is 0.4, AST is 21, ALT is 32, alk phos 153. Urine was negative. 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 She is here with abdominal pain, nausea, vomiting, diabetic ketoacidosis, dehydration, gastroparesis and I will continue with aggressive treatment and care for her and IV fluids and trending of the blood sugars as good as we can and gastroparesis. She is presenting with diabetic ketoacidosis and nausea, vomiting. We will check her labs tomorrow. David Theodore DO
--- NOTE | 2018-06-05 13:38 | PN ---
DATE: 06/05/2018 ENDOCRINOLOGY FOLLOWUP NOTE LOCATION: In CCU 129, room 2. This is a 43-year-old female with recent uncontrolled type 1 insulin-dependent diabetes, presenting with diabetic ketoacidosis and has since then improved clinically and metabolically as noted thereof. Her oral intake remains variable and suboptimal as per the nursing staff. The glucose levels overnight have ranged from 124-325 early this morning because they held the bedtime long-acting insulin which should not have been held and would expect hyperglycemic accelerations as noted otherwise. Her evening glucose levels were 100-136 mg/dL. The chemistries today showed a BUN of 13, sodium 139, potassium 3.4, chloride of 100, CO2 of 32, glucose 205 and creatinine 0.9. So at this time, we will modify her current basal and bolus insulin regimen and increase the Humalog to 10 units subcu t.i.d. before meals to start today. We will also increase her Levemir at 24 units subcu at bedtime daily as ordered. We will obtain serial chemistries and supplement accordingly as needed. We will follow. Tamara Campo MD
[2018-06-05] MEDS: Mupirocin 2% Ointment 15 GM TUBE NS SCH (17:30)
[2018-06-05] MEDS: Insulin Detemir 100 units/ml Vial (Levemir) SC SCH (21:37)
[2018-06-06] MEDS ORDERED: Pantoprazole 40 mg EC Tab PO SCH (06:00)
[2018-06-06 06:58] LABS: HEMOGLOBIN 9.2 g/dL (12.0-16.0); MEAN CELL VOLUME 80.5 fl (80.0-105.0); MEAN CORPUSCULAR HEMOGLOBIN 26.4 pg (25.0-35.0); MEAN CORPUSCULAR HGB CONC 32.9 g/dl (31.0-37.0); RBC 3.48 10^6/uL (3.5-6.1); RED CELL DISTRIBUTION WIDTH 17.9 % (11.5-14.5)
[2018-06-06 07:11] LABS: ALBUMIN 2.9 g/dL (3.0-4.8); ALT/SGPT 27 U/L (7-56); AST/SGOT 19 U/L (14-36); BLOOD UREA NITROGEN 11 mg/dL (7-21); CALCIUM 8.3 mg/dL (8.4-10.5); GFR AFRICAN-AMERICAN > 60; GFR NON-AFRICAN AMERICAN > 60
[2018-06-06 07:20] LABS: WHITE BLOOD COUNT 5.3 10^3/ul (4.5-11.0)
[2018-06-06] MEDS: Insulin Lispro (humaLOG) LOW Coverage SC SCH ×3 (08:19→17:03)
[2018-06-06] MEDS: Insulin Lispro 1 UNITS/0.01 ML SC SCH ×3 (08:23→17:17)
[2018-06-06] MEDS: Mupirocin 2% Ointment 15 GM TUBE NS SCH ×3 (08:29→17:18)
[2018-06-06 08:34] VITALS: BP 137/86
[2018-06-06 08:49] VITALS: O2SAT 97
--- NOTE | 2018-06-06 09:16 | CP.PCM.PN ---
<Zion Conner - Last Filed: 06/06/18 09:12> Subjective - Date & Time of Evaluation Date of Evaluation: 06/06/18 Time of Evaluation: 07:10 - Subjective Subjective: PGY-4 GI Fellow Prog Note Pt lying in bed when seen this AM. Minimally conversive, requesting to sleep but brief said that she has not had N/V for "awhile" and thinks that last BM was 4-5 days ago. Denied f/c, abd pain, cp, sob. 5 point ROS negative other than stated above Objective - Vital Signs/Intake and Output Vital Signs (last 24 hours): Temp Pulse Resp BP Pulse Ox 97.5 F L 104 H 20 137/86 97 06/06/18 08:00 06/06/18 08:28 06/06/18 08:00 06/06/18 08:28 06/06/18 08:00 Intake and Output: 06/06/18 06/06/18 06:59 18:59 Intake Total 1450 715 Output Total 1000 1250 Balance 450 -535 - Medications Medications: Current Medications Amlodipine Besylate (Norvasc) 5 mg PO DAILY [facility] Last Admin: 06/06/18 08:28 Dose: 5 mg Ibuprofen (Motrin Tab) 400 mg PO Q6H PRN PRN Reason: menstrual cramps Last Admin: 06/05/18 12:16 Dose: 400 mg Insulin Detemir (Levemir) 24 unit SC HS [facility] Last Admin: 06/05/18 21:37 Dose: 24 unit Insulin Human Lispro (Humalog Low) 0 units SC ACHS [facility] PRN Reason: Protocol Last Admin: 06/06/18 08:19 Dose: Not Given Insulin Human Lispro (Humalog) 10 units SC AC [facility] Last Admin: 06/06/18 08:23 Dose: 10 units Ketorolac Tromethamine (Toradol) 30 mg IVP Q8 PRN PRN Reason: Pain, moderate (4-7) Last Admin: 06/05/18 10:14 Dose: 30 mg Lorazepam (Ativan) 0.5 mg PO TID PRN; Protocol PRN Reason: Agitation Last Admin: 06/06/18 08:27 Dose: 0.5 mg Mupirocin (Bactroban Ointment) 0 gm NS BID [facility] Stop: 06/10/18 10:01 Last Admin: 06/06/18 08:29 Dose: 1 applic Ondansetron HCl (Zofran Inj) 4 mg IVP Q6 PRN PRN Reason: Nausea/Vomiting Last Admin: 06/05/18 05:54 Dose: 4 mg Pantoprazole Sodium (Protonix Ec Tab) 40 mg PO 0600 [facility] Last Admin: 06/06/18 06:35 Dose: 40 mg Polyethylene Glycol (Miralax) 17 gm PO DAILY [facility] - Labs Labs: 06/06/18 06:30 06/06/18 06:30 PT 10.9 SECONDS (9.4-12.5) 06/03/18 12:00 INR 0.95 (0.93-1.08) 06/03/18 12:00 APTT 27.9 Seconds (25.1-36.5) 06/03/18 12:00 - Constitutional Appears: Non-toxic, No Acute Distress, Agitated - Head Exam Head Exam: ATRAUMATIC, NORMOCEPHALIC - Eye Exam Eye Exam: EOMI. absent: Conjunctival injection, Scleral icterus - Respiratory Exam Respiratory Exam: NORMAL BREATHING PATTERN. absent: Accessory Muscle Use, Prolonged Expiratory Phase, Wheezes - Cardiovascular Exam Cardiovascular Exam: REGULAR RHYTHM. absent: Bradycardia, Tachycardia - GI/Abdominal Exam GI & Abdominal Exam: Distended (mildly), Soft, Normal Bowel Sounds. absent: Firm, Guarding, Tenderness, Rebound Assessment and Plan - Assessment and Plan (Free Text) Assessment: 43 yo BF with DM1 c/b gastroparesis presenting with DKA and N/V # Nausea and Vomiting: Likely multifactorial from DKA and known gastroparesis. No signs of obstruction on CT and w/o acute findings. Last EGD Nov 2016 with LA C Esophagitis, gastric and duodenal ulcers Bx negative for Hpylori, dysplasia /metaplasia). Reportedly may have had EGD at [facility] with botox injections since that time. Pt reports symptoms stable to improving. # Constipation: No BM in at least 4 days, though PO intake has been down due to above. With change miralax to scheduled for the time being. Plan: - Miralax schedules, can change to PRN if loose stools/frequent BMs - Recommend glycemic control here in acute setting as well as terminal gauger outpatient management - Symptomatic trt with ondansetron - Can trial erythromycin as inpatient - Smaller, frequent meals - Minimize or avoid narcotics due to GI side effects Pt seen and discussed with Dr. Be. Will sign off. Please call if questions. <Yamileth Be - Last Filed: 06/06/18 14:28> Objective - Vital Signs/Intake and Output Vital Signs (last 24 hours): Temp Pulse Resp BP Pulse Ox 98.1 F 113 H 21 137/86 97 06/06/18 11:47 06/06/18 12:00 06/06/18 12:00 06/06/18 08:28 06/06/18 11:47 Intake and Output: 06/06/18 06/06/18 06:59 18:59 Intake Total 1450 715 Output Total 1000 1250 Balance 450 -535 - Medications Medications: Current Medications Amlodipine Besylate (Norvasc) 5 mg PO DAILY [facility] Last Admin: 06/06/18 10:29 Dose: Not Given Ibuprofen (Motrin Tab) 400 mg PO Q6H PRN PRN Reason: menstrual cramps Last Admin: 06/05/18 12:16 Dose: 400 mg Insulin Detemir (Levemir) 24 unit SC HS [facility] Last Admin: 06/05/18 21:37 Dose: 24 unit Insulin Human Lispro (Humalog Low) 0 units SC ACHS [facility] PRN Reason: Protocol Last Admin: 06/06/18 11:40 Dose: Not Given Insulin Human Lispro (Humalog) 10 units SC AC [facility] Last Admin: 06/06/18 13:07 Dose: 10 units Ketorolac Tromethamine (Toradol) 30 mg IVP Q8 PRN PRN Reason: Pain, moderate (4-7) Last Admin: 06/06/18 11:15 Dose: 30 mg Lorazepam (Ativan) 0.5 mg PO TID PRN; Protocol PRN Reason: Agitation Last Admin: 06/06/18 08:27 Dose: 0.5 mg Mupirocin (Bactroban Ointment) 0 gm NS BID [facility] Stop: 06/10/18 10:01 Last Admin: 06/06/18 10:28 Dose: Not Given Ondansetron HCl (Zofran Inj) 4 mg IVP Q6 PRN PRN Reason: Nausea/Vomiting Last Admin: 06/05/18 05:54 Dose: 4 mg Pantoprazole Sodium (Protonix Ec Tab) 40 mg PO 0600 [facility] Last Admin: 06/06/18 06:35 Dose: 40 mg Polyethylene Glycol (Miralax) 17 gm PO DAILY [facility] Last Admin: 06/06/18 10:29 Dose: Not Given - Labs Labs: 06/06/18 06:30 06/06/18 06:30 PT 10.9 SECONDS (9.4-12.5) 06/03/18 12:00 INR 0.95 (0.93-1.08) 06/03/18 12:00 APTT 27.9 Seconds (25.1-36.5) 06/03/18 12:00 Attending/Attestation - Attestation I have personally seen and examined this patient.: Yes I have fully participated in the care of the patient.: Yes I have reviewed all pertinent clinical information, including history, physical exam and plan: Yes Notes (Text): 06/06/18 14:21 This is a 43 year old F with DM1 c/b gastroparesis presenting with DKA and Nausea and vomiting with no complains this morning. Last EGD Nov 2016 with LA C Esophagitis, gastric and duodenal ulcers Bx negative for Hpylori, dysplasia/ metaplasia). Reportedly may have had EGD at [facility] with botox injections since that time. She complains of no BM in at least 4 days and will start miralax. Strict glycemic control. Small frequent meals. Will sign off. Please call if questions.
[2018-06-06] MEDS ORDERED: POLYETHYLENE GLYCOL 3350 17 GM/Dose PACKET PO SCH (10:00)
[2018-06-06 11:49] VITALS: TEMP 98.1
[2018-06-06 12:05] VITALS: PULSE 113; RESP 21
--- NOTE | 2018-06-06 19:08 | PN ---
DATE: 06/06/2018 ENDOCRINOLOGY FOLLOWUP LOCATION: In CCU 129, room 2. SUBJECTIVE: This is a 43-year-old female with recent uncontrolled type 1 insulin-dependent diabetes, presenting here with intractable vomiting, upper abdominal pain, resurgence of her diabetic gastroparesis, and was found to be in diabetic ketoacidosis and dehydration and has since then received intensive insulin therapy and vigorous IV hydration as noted. Her oral intake is still very variable and suboptimal as per the nursing staff. Her glucose levels have ranged from 114 to 124 and 325 mg/dL. Her latest chemistry showed a BUN of 11. Sodium 137, potassium 3.9, chloride 101, CO2 of 31. Glucose is 285. Creatinine 0.8. So at this time, we will continue the same basal and bolus insulin regimen to allow for dose equilibration and keep her Humalog given as 10 units subcu t.i.d. before meals as ordered. We will continue the Levemir given as 24 units subcu at bedtime daily as given. We will obtain serial chemistries and supplement accordingly as needed. We will follow. Tamara Campo MD
--- NOTE | 2018-06-07 07:25 | DS ---
HOSPITAL COURSE: She is feeling better. She is eating better. She is in good spirits. She is going to be discharged today. She has Ativan. She will go back on her insulin that she takes at home, Levemir. She will be on MiraLax, Motrin as needed, Norvasc, Protonix and Zofran. PHYSICAL EXAMINATION: VITAL SIGNS: She has a 98.3 temperature, 99 pulse, 26 respiratory rate, 100% O2 sat on room air, 135/71 blood pressure. HEENT: Head is atraumatic, normocephalic. HEART: Regular rate. LUNGS: Decreased breath sounds, but clear. ABDOMEN: Soft, nontender. Positive bowel sounds. No guarding, no rebound, no CVA tenderness, the best I have felt it. EXTREMITIES: No edema. LABORATORY DATA: She has a 137 sodium, potassium 3.9, BUN 11, creatinine 0.8, GFR is greater than 60, sugar is 285, calcium is 8.3, total bili is 0.3, AST is 19, ALT is 27, alk phos 123, total protein is 5.6. White count is 5.3, hemoglobin 9.2, hematocrit 28, platelets are 289. ASSESSMENT AND PLAN: She will be discharged today on the same medications. She will call to have the pharmacy call me if she needs anything. I will see her in the office in a week and she was here for abdominal pain, intractable nausea and vomiting, gastroparesis, and diabetic ketoacidosis. David Theodore DO
== END 2018-06-06 18:50 | disposition home or self-care (01) | DRG 294 ==
LOC: ED 09:24 → ERH 12:16 → CCU 14:19
PROVIDERS: ADMIT Family Medicine; ATTEND Family Medicine
DX: E10.10 Type 1 diabetes mellitus with ketoacidosis without coma (principal); E86.0 Dehydration; E10.43 Type 1 diabetes mellitus with diabetic autonomic (poly)neuropathy; K31.84 Gastroparesis; F41.1 Generalized anxiety disorder; I10 Essential (primary) hypertension; E78.5 Hyperlipidemia, unspecified; E10.319 Type 1 diabetes mellitus with unspecified diabetic retinopathy without macular edema; K21.9 Gastro-esophageal reflux disease without esophagitis; Z79.4 Long term (current) use of insulin

== ENCOUNTER 2019-03-13 18:55 | Inpatient (IN) | payer MEDICAID ==
[2019-03-13] MEDS ORDERED: Sodium Chloride 0.9% 1,000 ML IV STA (19:13)
[2019-03-13] MEDS: Morphine 2 mg/ml ISec IVP PRN (21:03)
[2019-03-13 21:08] LABS: URINE BILIRUBIN NEGATIVE (NEGATIVE); URINE BLOOD SMALL (NEGATIVE); URINE GLUCOSE (UA) 500 mg/dL (NEGATIVE); URINE LEUKOCYTE ESTERASE NEGATIVE Leu/uL (NEGATIVE); URINE PROTEIN 30 mg/dL (<30 mg/dL); URINE UROBILINOGEN 0.2 E.U./dL (<1 E.U./dL)
[2019-03-13 21:10] LABS: URINE APPEARANCE SL CLOUDY (CLEAR); URINE COLOR YELLOW (YELLOW)
[2019-03-13 21:10] LABS: BASO # 0.01 {null, K/mm3} (0.0-2.0); BASO % 0.1 % (0.0-3.0); HEMOGLOBIN 10.8 g/dL (12.0-16.0); LYMPH % 5.8 % (22.0-35.0); MEAN CORPUSCULAR HEMOGLOBIN 25.2 pg (25.0-35.0); MEAN CORPUSCULAR HGB CONC 31.9 g/dl (31.0-37.0); MEAN PLATELET VOLUME 9.1 fl (7.0-11.0); MONO # 0.3 (0.1-0.6); MONO % 1.9 % (1.0-6.0); PLATELET COUNT 423 {null, 10^3/uL} (120.0-450.0); RBC 4.29 {null, 10^6/uL} (3.5-6.1); RED CELL DISTRIBUTION WIDTH 15.4 % (11.5-14.5); WHITE BLOOD COUNT 16.8 {null, 10^3/uL} (4.5-11.0)
--- NOTE | 2019-03-13 21:17 | ED PDOC ---
Arrival/HPI - General Chief Complaint: Abdominal Pain Time Seen by Provider: 03/13/19 19:08 Historian: Patient - History of Present Illness Narrative History of Present Illness (Text): 03/13/19 19:10 Shanelle Mancini is a 44 year old female, whose past medical history includes diabetes, DKA, gastroparesis, nephropathy, hypertension, hyperlipidemia, esophagitis, and gastric ulcer, who presents to the ED complaining of palpitati ons. Patient states she has been experiencing palpitations with associated abdominal pain and vomiting since this morning. Patient notes she has been feeling weak. Patient denies any fever, chills, chest pain, shortness of breath, diarrhea, urinary symptoms, back pain, neck pain, headache, dizziness, or any other complaints. Symptom Onset: Gradual Symptom Course: Unchanged Activities at Onset: Light Context: Home Past Medical History - Provider Review Nursing Documentation Reviewed: Yes Primary Care Physician: David Theodore, DO - Past History Past History: No Previous - Infectious Disease Hx of Infectious Diseases: None - Tetanus Immunization Tetanus Immunization: Unknown - Reproductive Menopause: No - Past Medical History Past Medical History: No Previous - Cardiac Hx Cardiac Disorders: Yes Hx Hypertension: Yes - Pulmonary Hx Respiratory Disorders: No - Neurological Hx Neurological Disorder: Yes (NEUROPATHY) - HEENT Hx HEENT Disorder: Yes Other/Comment: wears glasses-nearsighted - Renal Hx Renal Disorder: No - Endocrine/Metabolic Hx Diabetes Mellitus Type 1: Yes (hx DKA) - Hematological/Oncological Hx Anemia: Yes - Integumentary Hx Dermatological Disorder: Yes (hx diabetic foot ulcers) - Musculoskeletal/Rheumatological Hx Falls: No - Gastrointestinal Hx Gastrointestinal Disorders: Yes (gastritis,gastroparesis) Hx Gastroesophageal Reflux: Yes - Genitourinary/Gynecological Hx Urinary Tract Infection: Yes - Psychiatric Hx Psychophysiologic Disorder: Yes Hx Anxiety: Yes Hx Substance Use: No - Past Surgical History Past Surgical History: No Previous - Surgical History Hx Cardiac Catheterization: No Other/Comment: endoscopy with BOTOX - Anesthesia Hx Anesthesia: No Hx Anesthesia Reactions: No Hx Malignant Hyperthermia: No - Suicidal Assessment Feels Threatened In Home Enviroment: No Family/Social History - Physician Review Nursing Documentation Reviewed: Yes Family/Social History: Unknown Family HX Smoking Status: Never Smoked Hx Alcohol Use: No Hx Substance Use: No Hx Substance Use Treatment: No Allergies/Home Meds Allergies/Adverse Reactions: Allergies metoclopramide HCl [From Reglan] Adverse Reaction (Verified 05/04/18 14:22) VOMITING Review of Systems - Physician Review All systems were reviewed & negative as marked: Yes - Review of Systems Constitutional: Normal. absent: Fevers Eyes: Normal ENT: Normal Respiratory: Normal. absent: SOB, Cough Cardiovascular: Palpitations Gastrointestinal: Abdominal Pain, Nausea, Vomiting Genitourinary Female: Normal. absent: Dysuria, Frequency, Hematuria, Urine Output Changes Musculoskeletal: Normal. absent: Back Pain, Neck Pain Skin: Normal. absent: Rash Neurological: Normal Endocrine: Normal Hemo/Lymphatic: Normal Psychiatric: Normal Physical Exam Vital Signs Reviewed: Yes Vital Signs Temp Pulse Resp BP Pulse Ox 03/13/19 19:02 98.0 F 123 H 18 146/85 100 Temperature: Afebrile Blood Pressure: Normal Pulse: Tachycardic Respiratory Rate: Normal Appearance: Positive for: Well-Appearing, Non-Toxic, Comfortable Pain Distress: None Mental Status: Positive for: Alert and Oriented X 3 Finger Stick Blood Glucose: 312 - Systems Exam Head: Present: Atraumatic, Normocephalic Pupils: Present: PERRL Extroacular Muscles: Present: EOMI Conjunctiva: Present: Normal Mouth: Present: Moist Mucous Membranes Neck: Present: Normal Range of Motion Respiratory/Chest: Present: Clear to Auscultation, Good Air Exchange. No: Respiratory Distress, Accessory Muscle Use Cardiovascular: Present: Regular Rate and Rhythm, Normal S1, S2. No: Murmurs Abdomen: No: Tenderness, Distention, Peritoneal Signs Back: Present: Normal Inspection Upper Extremity: Present: Normal Inspection. No: Cyanosis, Edema Lower Extremity: Present: Normal Inspection. No: Edema Neurological: Present: GCS=15, CN II-XII Intact, Speech Normal Skin: Present: Warm, Dry, Normal Color. No: Rashes Psychiatric: Present: Alert, Oriented x 3, Normal Insight, Normal Concentration Medical Decision Making ED Course and Treatment: 03/13/19 19:10 Impression: 44 year old female complaining of palpitations, abdominal pain, nausea, vomiting, and generalized weakness. Plan: -- EKG -- Chest X-ray -- Labs, amylase, lipase, cardiac enzymes, blood cultures -- Urinalysis -- IV fluids -- Zofran -- Morphine -- Reassess and disposition Prior Visits: Notes and results from previous visits were reviewed. Progress Notes: Reviewed EKG, sinus tachycardia at 127 bpm[address] Non-specific ST/T wave changes. 03/13/19 23:[address] Theodore, who is aware and agrees with plan. Accepts pt in to her service. Pt admitted to ICU for DKA. 03/14/19 01:00 CT Abdomen and Pelvis: Moderate sliding hiatal hernia. Distended bladder. Mild fullness of the collecting systems most probably secondary to a distended bladder. Bilateral basilar subsegmental atelectatic pulmonary changes. Normal unenhanced liver. Normal gallbladder and extrahepatic biliary system. Normal unenhanced spleen. Normal pancreas. Normal bilateral adrenal glands. Normal size of the right kidney. There is no right renal mass. There are no right renal calculi. Normal size of the left kidney. There is no left renal mass. There are no left renal calculi. Normal visualized stomach. Normal small intestine. Normal colon. The appendix is visualized and appears normal. There is no demonstrated peritoneal fluid. Normal abdominal aorta. Normal inferior vena cava. Normal retroperitoneum. There is no pelvic mass lesion or lymphadenopathy. There is mild amount of free pelvic fluid. Normal abdominal wall. Normal osseous structures. IMPRESSION: Moderate sliding hiatal hernia. Distended bladder. Mild fullness of the collecting systems most probably secondary to a distended bladder. Bilateral basilar subsegmental atelectatic pulmonary changes. Electronically signed on Mar 14, 2019 12:47:46 AM EDT by: Dangelo Valentino M.D., Certified by ABR, MSK, Neuroradiology - Lab Interpretations Lab Results: Urine Color Yellow (YELLOW) 03/13/19 20:57 Urine Appearance Sl cloudy (CLEAR) 03/13/19 20:57 Urine pH 6.0 (4.7-8.0) 03/13/19 20:57 Ur Specific [place] >= 1.030 (1.005-1.035) 03/13/19 20:57 Urine Protein 30 mg/dL (<30 mg/dL) H 03/13/19 20:57 Urine Glucose (UA) 500 mg/dL (NEGATIVE) H 03/13/19 20:57 Urine Ketones >=80 mg/dL (NEGATIVE) 03/13/19 20:57 Urine Blood Small (NEGATIVE) H 03/13/19 20:57 Urine Nitrate Negative (NEGATIVE) 03/13/19 20:57 Urine Bilirubin Negative (NEGATIVE) 03/13/19 20:57 Urine Urobilinogen 0.2 E.U./dL (<1 E.U./dL) 03/13/19 20:57 Ur Leukocyte Esterase Negative Bro/uL (NEGATIVE) 03/13/19 20:57 I have reviewed the lab results: Yes - 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 No Sleep Is patient sleeping during reassessment? No Presence of Pain Presence of Pain Yes Pain Scale Used Protocol: PSCALES Pain Scale Used Numeric IVP Administration Document 03/13/19 21:03 IT (Rec: 03/13/19 21:03 IT [id number]) Charges for Administration # of IVP Administrations 1 Discontinued Medications Sodium Chloride (Sodium Chloride 0.9%) 1,000 mls @ 1,000 mls/hr IV .Q1H STA Stop: 03/13/19 20:12 Last Admin: 03/13/19 20:12 Dose: 1,000 mls/hr eMAR Start Stop Document 03/13/19 20:12 IT (Rec: 03/13/19 20:12 IT [id number]) Intravenous Solution Start Date 03/13/19 Start Time 20:12 Ondansetron HCl (Zofran Inj) 4 mg IVP STAT STA Stop: 03/13/19 19:14 Last Admin: 03/13/19 20:12 Dose: 4 mg IVP Administration Document 03/13/19 20:12 IT (Rec: 03/13/19 20:12 IT [id number]) Charges for Administration # of IVP Administrations 1 - Scribe Statement The provider has reviewed the documentation as recorded by the Vitaliy Garcia Provider Scribe Attestation: All medical record entries made by the Scribe were at my direction and personally dictated by me. I have reviewed the chart and agree that the record accurately reflects my personal performance of the history, physical exam, medical decision making, and the department course for this patient. I have also personally directed, reviewed, and agree with the discharge instructions and disposition. Disposition/Present on Arrival - Present on Arrival Any Indicators Present on Arrival: No History of DVT/PE: No History of Uncontrolled Diabetes: Yes Urinary Catheter: No History of Decub. Ulcer: No History Surgical Site Infection Following: None - Disposition Have Diagnosis and Disposition been Completed?: Yes Diagnosis: Acute urinary tract infection, Nausea & vomiting, DKA (diabetic ketoacidoses) Disposition: HOSPITALIZED Disposition Time: 23:45 Condition: GUARDED
[2019-03-13 21:20] LABS: URINE BACTERIA MOD /hpf; URINE EPITHELIAL CELLS MANY /hpf (0-5)
[2019-03-13] MEDS ORDERED: cefTRIAXone 1 gm 1 GM/100 ML BAG IVPB STA (21:25)
[2019-03-13 21:50] LABS: TROPONIN I < 0.01 ng/mL
[2019-03-13 21:52] LABS: ATYPICAL LYMPHOCYTE 2 % (0.0-0.0); LYMPHOCYTE 5 % (22.0-35.0); MONOCYTE 2 % (1.0-6.0); NEUTROPHIL 91 % (50.0-70.0)
[2019-03-13 21:54] LABS: ALB/GLOB RATIO 1.1 (1.1-1.8); ALBUMIN 4.4 g/dL (3.0-4.8); ALT/SGPT 13 U/L (7-56); AMYLASE 107 U/L (35-125); AST/SGOT 23 U/L (14-36); BLOOD UREA NITROGEN 22 mg/dL (7-21); CALCIUM 8.8 mg/dL (8.4-10.5); GFR NON-AFRICAN AMERICAN > 60; LIPASE 20 U/L (23-300)
[2019-03-13] MEDS ORDERED: Iohexol 350 MG/100 ML VIAL ONE (22:42)
[2019-03-13] MEDS ORDERED: Insulin Regular 100 UNITS in Sodium Chloride 0.9% 99 ML IV PRN (23:35)
--- NOTE | 2019-03-14 00:07 | CP.PCM.CON ---
<Jitendra Fox - Last Filed: 03/14/19 02:41> History of Present Illness - History of Present Illness History of Present Illness: PGY-1 ICU Consult note for Dr. Santos CC: DKA HPI: Patient is a 44 year old female with a past medical history of uncontrolled DM type 1, DKA, gastroparesis, nephropathy, hypertension, hyperlipidemia, esophagitis, and gastric ulcer, presenting with nausea, vomiting, and palpitations for 1 day. Patient states that she has been feeling nauseated and vomited many times since this morning. She states that she takes insulin at home for her diabetes but has been missing her doses. She states that she did not eat or drink anything today because of her nausea. She is also complaining of epigastric pain that started today. Patient has been admitted to the hospital multiple times for DKA. She otherwise denies fevers, chills, hematemesis, shortness of breath, chest pain, diarrhea, or urinary symptoms. In ED, glucose levels was found to be in the 300's with an anion gap of 22. Patient was started on an Insulin drip. 12-point ROS reviewed and negative except mentioned in HPI. PMHx: uncontrolled DM type 1, DKA, gastroparesis, nephropathy, hypertension, hyp erlipidemia, esophagitis, and gastric ulcer. PSHx: denies Allergies: Metoclopramide Social Hx: Denies alcohol, tobacco, or illicit drug use. Family Hx: HTN, DM in multiple family members. Medications: See JAN PMD: Dr. Theodore Past Patient History - Infectious Disease Hx of Infectious Diseases: None - Tetanus Immunizations Tetanus Immunization: Unknown - Past Social History Smoking Status: Never Smoked - CARDIAC Hx Cardiac Disorders: Yes Hx Hypertension: Yes - PULMONARY Hx Respiratory Disorders: No - NEUROLOGICAL Hx Neurological Disorder: Yes (NEUROPATHY) - HEENT Hx HEENT Problems: Yes Other/Comment: wears glasses-nearsighted - RENAL Hx Chronic Kidney Disease: No - ENDOCRINE/METABOLIC Hx Diabetes Mellitus Type 1: Yes (hx DKA) - HEMATOLOGICAL/ONCOLOGICAL Hx Anemia: Yes - INTEGUMENTARY Hx Dermatological Problems: Yes (hx diabetic foot ulcers) - MUSCULOSKELETAL/RHEUMATOLOGICAL Hx Falls: No - GASTROINTESTINAL Hx Gastrointestinal Disorders: Yes (gastritis,gastroparesis) Hx Gastroesophageal Reflux: Yes - GENITOURINARY/GYNECOLOGICAL Hx Urinary Tract Infection: Yes - PSYCHIATRIC Hx Psychophysiologic Disorder: Yes Hx Anxiety: Yes Hx Substance Use: No - SURGICAL HISTORY Hx Cardiac Catheterization: No Other/Comment: endoscopy with BOTOX - ANESTHESIA Hx Anesthesia: No Hx Anesthesia Reactions: No Hx Malignant Hyperthermia: No Meds Allergies/Adverse Reactions: Allergies Allergy/AdvReac Type Severity Reaction Status Date / Time metoclopramide HCl AdvReac VOMITING Verified 05/04/18 14:22 [From Reglan] - Medications Medications: Current Medications Insulin Human Regular 100 (units/ Sodium Chloride) 100 mls @ 6 mls/hr IV .[id number] PRN; Protocol PRN Reason: TITRATE PER MD ORDER Morphine Sulfate (Morphine) 2 mg IVP Q4H PRN PRN Reason: Pain, moderate (4-7) Last Admin: 03/13/19 21:03 Dose: 2 mg Physical Exam - Constitutional Additional comments: Appears uncomfortable - Head Exam Head Exam: ATRAUMATIC, NORMAL INSPECTION, NORMOCEPHALIC - Eye Exam Eye Exam: EOMI, Normal appearance, PERRL Pupil Exam: NORMAL ACCOMODATION - ENT Exam ENT Exam: Mucous Membranes Dry - Neck Exam Neck exam: Positive for: Normal Inspection. Negative for: Tenderness - Respiratory Exam Respiratory Exam: Clear to Auscultation Bilateral, NORMAL BREATHING PATTERN. absent: Rales, Rhonchi, Wheezes, Respiratory Distress - Cardiovascular Exam Cardiovascular Exam: Tachycardia, +S1, +S2. absent: Gallop, Rubs, Systolic Murmur - GI/Abdominal Exam GI & Abdominal Exam: Normal Bowel Sounds, Soft, Tenderness (Tenderness to palpation in epigastric region) - Extremities Exam Extremities exam: Positive for: normal inspection. Negative for: calf tenderness, pedal edema - Back Exam Back exam: absent: CVA tenderness (L), CVA tenderness (R), paraspinal tenderness, vertebral tenderness - Neurological Exam Neurological exam: Alert, CN II-XII Intact, Oriented x3 - Psychiatric Exam Psychiatric exam: Flat Affect - Skin Skin Exam: Dry, Intact, Normal Color, Warm Results - Vital Signs Recent Vital Signs: Last Vital Signs Temp 98.0 F 03/13/19 19:02 Pulse 120 H 03/13/19 23:32 Resp 18 03/13/19 23:32 BP 141/70 03/13/19 23:32 Pulse Ox 100 03/13/19 23:32 - Labs Result Diagrams: 03/13/19 21:03 03/13/19 21:03 Labs: Laboratory Results - last 24 hr 03/13/19 03/13/19 03/13/19 19:43 20:57 21:03 WBC 16.8 H RBC 4.29 Hgb 10.8 L Hct 33.9 L MCV 79.0 L MCH 25.2 MCHC 31.9 RDW 15.4 H Plt Count 423 MPV 9.1 Neut % (Auto) 92.2 H Lymph % (Auto) 5.8 L [place] % (Auto) 1.9 Eos % (Auto) 0.0 L Baso % (Auto) 0.1 Lymph # (Auto) 1.0 L [place] # (Auto) 0.3 Eos # (Auto) 0.0 Baso # (Auto) 0.01 Absolute Neuts (auto) 15.51 H Neutrophils % (Manual) 91 H Lymphocytes % (Manual) 5 L Atypical Lymphs % 2 H Monocytes % (Manual) 2 Sodium Potassium Chloride Carbon Dioxide Anion Gap BUN Creatinine Est GFR ( Amer) Est GFR (Non-Af Amer) POC Glucose (mg/dL) 312 H Random Glucose Calcium Total Bilirubin AST ALT Alkaline Phosphatase Lactate Dehydrogenase Total Creatine Kinase Troponin I Total Protein Albumin Globulin Albumin/Globulin Ratio Amylase Lipase Urine Color Yellow Urine Appearance Sl cloudy Urine pH 6.0 Ur Specific [place] >= 1.030 Urine Protein 30 H Urine Glucose (UA) 500 H Urine Ketones >=80 Urine Blood Small H Urine Nitrate Negative Urine Bilirubin Negative Urine Urobilinogen 0.2 Ur Leukocyte Esterase Negative Urine RBC 2 - 5 H Urine WBC 10 - 15 H Ur Epithelial Cells Many H Urine Bacteria Mod 03/13/19 21:03 WBC RBC Hgb Hct MCV MCH MCHC RDW Plt Count MPV Neut % (Auto) Lymph % (Auto) [place] % (Auto) Eos % (Auto) Baso % (Auto) Lymph # (Auto) [place] # (Auto) Eos # (Auto) Baso # (Auto) Absolute Neuts (auto) Neutrophils % (Manual) Lymphocytes % (Manual) Atypical Lymphs % Monocytes % (Manual) Sodium 140 Potassium 4.5 Chloride 109 H Carbon Dioxide 14 L Anion Gap 22 H BUN 22 H Creatinine 0.8 Est GFR ( Amer) > 60 Est GFR (Non-Af Amer) > 60 POC Glucose (mg/dL) Random Glucose 322 H* Calcium 8.8 Total Bilirubin 0.7 AST 23 ALT 13 Alkaline Phosphatase 108 Lactate Dehydrogenase 706 H Total Creatine Kinase 161 Troponin I < 0.01 Total Protein 8.4 H Albumin 4.4 Globulin 4.0 Albumin/Globulin Ratio 1.1 Amylase 107 Lipase 20 L Urine Color Urine Appearance Urine pH Ur Specific [place] Urine Protein Urine Glucose (UA) Urine Ketones Urine Blood Urine Nitrate Urine Bilirubin Urine Urobilinogen Ur Leukocyte Esterase Urine RBC Urine WBC Ur Epithelial Cells Urine Bacteria Assessment & Plan - Assessment and Plan (Free Text) Assessment: Patient is a 44 year old female with a past medical history of uncontrolled DM type 1, DKA, gastroparesis, nephropathy, hypertension, hyperlipidemia, esophagitis, and gastric ulcer, presenting with nausea, vomiting, and palpitations. In ED, glucose levels was found to be in the 300's with an anion gap of 22. Patient was started on an Insulin drip. Patient will be admitted to the ICU for management and treatment of DKA. Plan: Neuro: - Patient is AAO X3 Pulmonary: - No active issues Cardiac: Sinus Tachycardia - Likely 2/2 to pain - EKG: sinus tachycardia at [address] bpm[address] Non-specific ST/T wave changes. - Continue home medication Lopressor 25mg PO BID - Morphine 2mg IVP Q4 PRN Hypertension - Continue home medication Lopressor 25mg PO BID, Norvasc 5mg PO QD - Continue to monitor GI: Abdominal pain - CT abdomen/pelvis: pending - Morphine 2mg IVP Q4 PRN - Lipase, amylase: WNL Nausea, vomiting - Zofran PRN - Clear liquid diet - Advance diet as tolerated Renal: - No active issues Endocrine: DM-2 with DKA - Admit patient to ICU - Glucose on admission: 322 - Anion gap: 22 - Start Insulin IV drip for DKA- Algorithm 1 - NS @ 100cc/hr - Accuchecks Q2H - BMP Q6H - Zofran PRN ID: - Follow up urine and blood cultures - UA: negative for nitrates and LE. Positive for bacteria and WBC Prophylaxis: - DVT: Lovenox 40mg SC QD - GI: Protonix 40mg IVP QD Case discussed with attending, Dr. Danielle Fox, PGY-1 <Juan Santos - Last Filed: 03/14/19 11:13> Meds - Medications Medications: Current Medications Amlodipine Besylate (Norvasc) 5 mg PO DAILY [facility] Last Admin: 03/14/19 09:23 Dose: 5 mg Enoxaparin Sodium (Lovenox) 40 mg SC DAILY [facility]; Protocol Last Admin: 03/14/19 09:20 Dose: 40 mg Insulin Human Regular 100 (units/ Sodium Chloride) 100 mls @ 6 mls/hr IV .[id number] PRN; Protocol PRN Reason: TITRATE PER MD ORDER Last Titration: 03/14/19 06:00 Dose: 2 units/hr, 2 mls/hr Ceftriaxone Sodium (Rocephin 1 Gram Ivpb) 1 gm in 100 mls @ 100 mls/hr IVPB DAILY [facility]; Protocol Stop: 03/21/19 10:01 Last Admin: 03/14/19 09:20 Dose: 100 mls/hr Dextrose/Sodium Chloride (Dextrose 5%/0.45% Ns 1000 Ml) 1,000 mls @ 100 mls/hr IV .Q10H [facility] Last Admin: 03/14/19 09:11 Dose: 100 mls/hr Lorazepam (Ativan) 0.5 mg PO Q12H PRN; Protocol PRN Reason: Anxiety Last Admin: 03/14/19 06:14 Dose: 0.5 mg Metoprolol Tartrate (Lopressor) 50 mg PO BID [facility] Last Admin: 03/14/19 09:52 Dose: 50 mg Morphine Sulfate (Morphine) 2 mg IVP Q4H PRN PRN Reason: Pain, moderate (4-7) Last Admin: 03/14/19 06:13 Dose: 2 mg Ondansetron HCl (Zofran Inj) 4 mg IVP Q4H PRN PRN Reason: Nausea/Vomiting Last Admin: 03/14/19 06:14 Dose: 4 mg Pantoprazole Sodium (Protonix Inj) 40 mg IVP DAILY [facility] Last Admin: 03/14/19 09:24 Dose: 40 mg Results - Vital Signs Recent Vital Signs: Last Vital Signs Temp 98 F 03/14/19 01:56 Pulse 124 H 03/14/19 09:52 Resp 18 03/14/19 01:56 BP 124/80 03/14/19 09:52 Pulse Ox 98 03/14/19 01:48 - Labs Result Diagrams: 03/13/19 21:03 03/14/19 08:30 Labs: Laboratory Results - last 24 hr 03/13/19 03/13/19 03/13/19 19:43 20:57 21:03 WBC 16.8 H RBC 4.29 Hgb 10.8 L Hct 33.9 L MCV 79.0 L MCH 25.2 MCHC 31.9 RDW 15.4 H Plt Count 423 MPV 9.1 Neut % (Auto) 92.2 H Lymph % (Auto) 5.8 L [place] % (Auto) 1.9 Eos % (Auto) 0.0 L Baso % (Auto) 0.1 Lymph # (Auto) 1.0 L [place] # (Auto) 0.3 Eos # (Auto) 0.0 Baso # (Auto) 0.01 Absolute Neuts (auto) 15.51 H Neutrophils % (Manual) 91 H Lymphocytes % (Manual) 5 L Atypical Lymphs % 2 H Monocytes % (Manual) 2 Sodium Potassium Chloride Carbon Dioxide Anion Gap BUN Creatinine Est GFR ( Amer) Est GFR (Non-Af Amer) POC Glucose (mg/dL) 312 H Random Glucose Calcium Total Bilirubin AST ALT Alkaline Phosphatase Lactate Dehydrogenase Total Creatine Kinase Troponin I Total Protein Albumin Globulin Albumin/Globulin Ratio Amylase Lipase Urine Color Yellow Urine Appearance Sl cloudy Urine pH 6.0 Ur Specific [place] >= 1.030 Urine Protein 30 H Urine Glucose (UA) 500 H Urine Ketones >=80 Urine Blood Small H Urine Nitrate Negative Urine Bilirubin Negative Urine Urobilinogen 0.2 Ur Leukocyte Esterase Negative Urine RBC 2 - 5 H Urine WBC 10 - 15 H Ur Epithelial Cells Many H Urine Bacteria Mod 03/13/19 03/14/19 03/14/19 21:03 00:26 01:27 WBC RBC Hgb Hct MCV MCH MCHC RDW Plt Count MPV Neut % (Auto) Lymph % (Auto) [place] % (Auto) Eos % (Auto) Baso % (Auto) Lymph # (Auto) [place] # (Auto) Eos # (Auto) Baso # (Auto) Absolute Neuts (auto) Neutrophils % (Manual) Lymphocytes % (Manual) Atypical Lymphs % Monocytes % (Manual) Sodium 140 Potassium 4.5 Chloride 109 H Carbon Dioxide 14 L Anion Gap 22 H BUN 22 H Creatinine 0.8 Est GFR ( Amer) > 60 Est GFR (Non-Af Amer) > 60 POC Glucose (mg/dL) 369 H 377 H Random Glucose 322 H* Calcium 8.8 Total Bilirubin 0.7 AST 23 ALT 13 Alkaline Phosphatase 108 Lactate Dehydrogenase 706 H Total Creatine Kinase 161 Troponin I < 0.01 Total Protein 8.4 H Albumin 4.4 Globulin 4.0 Albumin/Globulin Ratio 1.1 Amylase 107 Lipase 20 L Urine Color Urine Appearance Urine pH Ur Specific [place] Urine Protein Urine Glucose (UA) Urine Ketones Urine Blood Urine Nitrate Urine Bilirubin Urine Urobilinogen Ur Leukocyte Esterase Urine RBC Urine WBC Ur Epithelial Cells Urine Bacteria 03/14/19 03/14/19 03/14/19 01:53 03:15 03:30 WBC RBC Hgb Hct MCV MCH MCHC RDW Plt Count MPV Neut % (Auto) Lymph % (Auto) [place] % (Auto) Eos % (Auto) Baso % (Auto) Lymph # (Auto) [place] # (Auto) Eos # (Auto) Baso # (Auto) Absolute Neuts (auto) Neutrophils % (Manual) Lymphocytes % (Manual) Atypical Lymphs % Monocytes % (Manual) Sodium 146 Potassium 4.4 Chloride 117 H Carbon Dioxide 15 L Anion Gap 19 BUN 20 Creatinine 0.9 Est GFR ( Amer) > 60 Est GFR (Non-Af Amer) > 60 POC Glucose (mg/dL) 322 H 220 H Random Glucose 207 H Calcium 9.0 Total Bilirubin AST ALT Alkaline Phosphatase Lactate Dehydrogenase Total Creatine Kinase Troponin I Total Protein Albumin Globulin Albumin/Globulin Ratio Amylase Lipase Urine Color Urine Appearance Urine pH Ur Specific [place] Urine Protein Urine Glucose (UA) Urine Ketones Urine Blood Urine Nitrate Urine Bilirubin Urine Urobilinogen Ur Leukocyte Esterase Urine RBC Urine WBC Ur Epithelial Cells Urine Bacteria 03/14/19 03/14/19 03/14/19 04:38 06:14 07:22 WBC RBC Hgb Hct MCV MCH MCHC RDW Plt Count MPV Neut % (Auto) Lymph % (Auto) [place] % (Auto) Eos % (Auto) Baso % (Auto) Lymph # (Auto) [place] # (Auto) Eos # (Auto) Baso # (Auto) Absolute Neuts (auto) Neutrophils % (Manual) Lymphocytes % (Manual) Atypical Lymphs % Monocytes % (Manual) Sodium Potassium Chloride Carbon Dioxide Anion Gap BUN Creatinine Est GFR ( Amer) Est GFR (Non-Af Amer) POC Glucose (mg/dL) 170 H 188 H 185 H Random Glucose Calcium Total Bilirubin AST ALT Alkaline Phosphatase Lactate Dehydrogenase Total Creatine Kinase Troponin I Total Protein Albumin Globulin Albumin/Globulin Ratio Amylase Lipase Urine Color Urine Appearance Urine pH Ur Specific [place] Urine Protein Urine Glucose (UA) Urine Ketones Urine Blood Urine Nitrate Urine Bilirubin Urine Urobilinogen Ur Leukocyte Esterase Urine RBC Urine WBC Ur Epithelial Cells Urine Bacteria 03/14/19 03/14/19 03/14/19 08:30 08:30 09:57 WBC RBC Hgb Hct MCV MCH MCHC RDW Plt Count MPV Neut % (Auto) Lymph % (Auto) [place] % (Auto) Eos % (Auto) Baso % (Auto) Lymph # (Auto) [place] # (Auto) Eos # (Auto) Baso # (Auto) Absolute Neuts (auto) Neutrophils % (Manual) Lymphocytes % (Manual) Atypical Lymphs % Monocytes % (Manual) Sodium 145 Potassium 4.3 Chloride 117 H Carbon Dioxide 14 L Anion Gap 18 BUN 20 Creatinine 1.0 Est GFR ( Amer) > 60 Est GFR (Non-Af Amer) > 60 POC Glucose (mg/dL) 163 H Random Glucose 196 H Calcium 8.7 Total Bilirubin AST ALT Alkaline Phosphatase Lactate Dehydrogenase Total Creatine Kinase Troponin I < 0.01 Total Protein Albumin Globulin Albumin/Globulin Ratio Amylase Lipase Urine Color Urine Appearance Urine pH Ur Specific [place] Urine Protein Urine Glucose (UA) Urine Ketones Urine Blood Urine Nitrate Urine Bilirubin Urine Urobilinogen Ur Leukocyte Esterase Urine RBC Urine WBC Ur Epithelial Cells Urine Bacteria Attending/Attestation - Attestation I have personally seen and examined this patient.: Yes I have fully participated in the care of the patient.: Yes I have reviewed all pertinent clinical information: Yes
[2019-03-14] MEDS ORDERED: Morphine 2 mg/ml ISec IVP STA (00:17)
[2019-03-14] MEDS ORDERED: Sodium Chloride 0.9% 1,000 ML IV SCH (00:30)
[2019-03-14] MEDS ORDERED: HYDROmorphone 0.5 mg/0.5 ml ISec IVP STA (02:09)
[2019-03-14 02:42] VITALS: BMI 27.4
[2019-03-14 04:23] LABS: BLOOD UREA NITROGEN 20 mg/dL (7-21); GFR NON-AFRICAN AMERICAN > 60
[2019-03-14] MEDS: Morphine 2 mg/ml ISec IVP PRN ×4 (06:13→19:35)
--- NOTE | 2019-03-14 07:41 | CP.CCUPN ---
<BradyLevar - Last Filed: 03/14/19 10:51> CCU Subjective - Physician Review Events Since Last Encounter (Free Text): 03/14/19 07:38 no acute events overnight Subjective (Free Text): 03/14/19 07:40 Pt seen and examined this morning at bedside in the ICU, pt states she is nauseated and has vomited CCU Objective - Vital Signs / Intake & Output Vital Signs (Last 4 hours): Vital Signs Pulse 03/14/19 04:00 130 H Intake and Output (Last 8hrs): Intake & Output 03/13/19 03/14/19 03/14/19 22:59 06:59 14:59 Intake Total 4.5 Balance 4.5 Weight 185 lb 186 lb Intake: IV 4.5 - Physical Exam Head: Positive for: Atraumatic, Normocephalic Pupils: Positive for: PERRL Extroacular Muscles: Positive for: EOMI Conjunctiva: Positive for: Normal Mouth: Positive for: Moist Mucous Membranes Neck: Positive for: Normal Range of Motion Respiratory/Chest: Positive for: Clear to Auscultation, Good Air Exchange. Negative for: Respiratory Distress, Accessory Muscle Use Cardiovascular: Positive for: Regular Rate and Rhythm, Normal S1, S2. Negative for: Murmurs Abdomen: Negative for: Tenderness, Distention, Peritoneal Signs Back: Positive for: Normal Inspection Upper Extremity: Positive for: Normal Inspection. Negative for: Cyanosis, Edema Lower Extremity: Positive for: Normal Inspection. Negative for: Edema Neurological: Positive for: Speech Normal Skin: Positive for: Warm, Dry, Normal Color. Negative for: Rashes Psychiatric: Positive for: Alert, Oriented x 3, Normal Insight, Normal Concentration - Medications Active Medications: Active Medications Generic Name Dose Route Start Last Admin Trade Name Freq PRN Reason Stop Dose Admin Amlodipine Besylate 5 mg 03/14/19 10:00 Norvasc PO DAILY MICHELLE Enoxaparin Sodium 40 mg 03/14/19 10:00 Lovenox SC DAILY MICHELLE Protocol Insulin Human Regular 100 100 mls @ 6 mls/hr 03/13/19 23:35 03/14/19 06:00 units/ Sodium Chloride IV 2 units/hr .[id number] PRN 2 mls/hr TITRATE PER MD ORDER Titration Protocol 6 UNITS/HR Sodium Chloride 1,000 mls @ 100 mls/hr 03/14/19 00:30 03/14/19 02:07 Sodium Chloride 0.9% IV 100 mls/hr .Q10H MICHELLE Administration Ceftriaxone Sodium 1 gm in 100 mls @ 100 mls/hr 03/14/19 10:00 Rocephin 1 Gram Ivpb IVPB 03/21/19 10:01 DAILY MICHELLE Protocol Lorazepam 0.5 mg 03/14/19 05:53 03/14/19 06:14 Ativan PO 0.5 mg Q12H PRN Administration Anxiety Protocol Metoprolol Tartrate 25 mg 03/14/19 10:00 Lopressor PO BID MICHELLE Morphine Sulfate 2 mg 03/13/19 19:18 03/14/19 06:13 Morphine IVP 2 mg Q4H PRN Administration Pain, moderate (4-7) Ondansetron HCl 4 mg 03/14/19 00:21 03/14/19 06:14 Zofran Inj IVP 4 mg Q4H PRN Administration Nausea/Vomiting Pantoprazole Sodium 40 mg 03/14/19 10:00 Protonix Inj IVP DAILY MICHELLE - Patient Studies Lab Studies: Lab Studies 03/14/19 03/14/19 03/14/19 Range/Units 06:14 04:38 03:30 WBC (4.5-11.0) 10^3/uL RBC (3.5-6.1) 10^6/uL Hgb (12.0-16.0) g/dL Hct (36.0-48.0) % MCV (80.0-105.0) fl MCH (25.0-35.0) pg MCHC (31.0-37.0) g/dl RDW (11.5-14.5) % Plt Count (120.0-450.0) 10^3/uL MPV (7.0-11.0) fl Neut % (Auto) (50.0-68.0) % Lymph % (Auto) (22.0-35.0) % [place] % (Auto) (1.0-6.0) % Eos % (Auto) (1.5-5.0) % Baso % (Auto) (0.0-3.0) % Lymph # (Auto) (1.2-3.4) [place] # (Auto) (0.1-0.6) Eos # (Auto) (0.0-0.7) Baso # (Auto) (0.0-2.0) K/mm3 Absolute Neuts (auto) (1.4-6.5) Neutrophils % (Manual) (50.0-70.0) % Lymphocytes % (Manual) (22.0-35.0) % Atypical Lymphs % (0.0-0.0) % Monocytes % (Manual) (1.0-6.0) % Sodium 146 (132-148) mmol/L Potassium 4.4 (3.6-5.0) mmol/L Chloride 117 H (98-107) mmol/L Carbon Dioxide 15 L (21-33) mmol/L Anion Gap 19 (10-20) BUN 20 (7-21) mg/dL Creatinine 0.9 (0.7-1.2) mg/dl Est GFR ( Amer) > 60 Est GFR (Non-Af Amer) > 60 POC Glucose (mg/dL) 188 H 170 H (65-110) mg/dL Random Glucose 207 H (70-110) mg/dL Calcium 9.0 (8.4-10.5) mg/dL Total Bilirubin (0.2-1.3) mg/dL AST (14-36) U/L ALT (7-56) U/L Alkaline Phosphatase (38-126) U/L Lactate Dehydrogenase (333-699) U/L Total Creatine Kinase (35-230) U/L Troponin I ng/mL Total Protein (5.8-8.3) g/dL Albumin (3.0-4.8) g/dL Globulin gm/dL Albumin/Globulin Ratio (1.1-1.8) Amylase (35-125) U/L Lipase (23-300) U/L Urine Color (YELLOW) Urine Appearance (CLEAR) Urine pH (4.7-8.0) Ur Specific [place] (1.005-1.035) Urine Protein (<30 mg/dL) mg/dL Urine Glucose (UA) (NEGATIVE) mg/dL Urine Ketones (NEGATIVE) mg/dL Urine Blood (NEGATIVE) Urine Nitrate (NEGATIVE) Urine Bilirubin (NEGATIVE) Urine Urobilinogen (<1 E.U./dL) E.U./dL Ur Leukocyte Esterase (NEGATIVE) Rbo/uL Urine RBC (0-2) /hpf Urine WBC (0-6) /hpf Ur Epithelial Cells (0-5) /hpf Urine Bacteria (NONE) /hpf 03/14/19 03/14/19 03/14/19 Range/Units 03:15 01:53 01:27 WBC (4.5-11.0) 10^3/uL RBC (3.5-6.1) 10^6/uL Hgb (12.0-16.0) g/dL Hct (36.0-48.0) % MCV (80.0-105.0) fl MCH (25.0-35.0) pg MCHC (31.0-37.0) g/dl RDW (11.5-14.5) % Plt Count (120.0-450.0) 10^3/uL MPV (7.0-11.0) fl Neut % (Auto) (50.0-68.0) % Lymph % (Auto) (22.0-35.0) % [place] % (Auto) (1.0-6.0) % Eos % (Auto) (1.5-5.0) % Baso % (Auto) (0.0-3.0) % Lymph # (Auto) (1.2-3.4) [place] # (Auto) (0.1-0.6) Eos # (Auto) (0.0-0.7) Baso # (Auto) (0.0-2.0) K/mm3 Absolute Neuts (auto) (1.4-6.5) Neutrophils % (Manual) (50.0-70.0) % Lymphocytes % (Manual) (22.0-35.0) % Atypical Lymphs % (0.0-0.0) % Monocytes % (Manual) (1.0-6.0) % Sodium (132-148) mmol/L Potassium (3.6-5.0) mmol/L Chloride (98-107) mmol/L Carbon Dioxide (21-33) mmol/L Anion Gap (10-20) BUN (7-21) mg/dL Creatinine (0.7-1.2) mg/dl Est GFR ( Amer) Est GFR (Non-Af Amer) POC Glucose (mg/dL) 220 H 322 H 377 H (65-110) mg/dL Random Glucose (70-110) mg/dL Calcium (8.4-10.5) mg/dL Total Bilirubin (0.2-1.3) mg/dL AST (14-36) U/L ALT (7-56) U/L Alkaline Phosphatase (38-126) U/L Lactate Dehydrogenase (333-699) U/L Total Creatine Kinase (35-230) U/L Troponin I ng/mL Total Protein (5.8-8.3) g/dL Albumin (3.0-4.8) g/dL Globulin gm/dL Albumin/Globulin Ratio (1.1-1.8) Amylase (35-125) U/L Lipase (23-300) U/L Urine Color (YELLOW) Urine Appearance (CLEAR) Urine pH (4.7-8.0) Ur Specific [place] (1.005-1.035) Urine Protein (<30 mg/dL) mg/dL Urine Glucose (UA) (NEGATIVE) mg/dL Urine Ketones (NEGATIVE) mg/dL Urine Blood (NEGATIVE) Urine Nitrate (NEGATIVE) Urine Bilirubin (NEGATIVE) Urine Urobilinogen (<1 E.U./dL) E.U./dL Ur Leukocyte Esterase (NEGATIVE) Bro/uL Urine RBC (0-2) /hpf Urine WBC (0-6) /hpf Ur Epithelial Cells (0-5) /hpf Urine Bacteria (NONE) /hpf 03/14/19 03/13/19 03/13/19 Range/Units 00:26 21:03 21:03 WBC 16.8 H (4.5-11.0) 10^3/uL RBC 4.29 (3.5-6.1) 10^6/uL Hgb 10.8 L (12.0-16.0) g/dL Hct 33.9 L (36.0-48.0) % MCV 79.0 L (80.0-105.0) fl MCH 25.2 (25.0-35.0) pg MCHC 31.9 (31.0-37.0) g/dl RDW 15.4 H (11.5-14.5) % Plt Count 423 (120.0-450.0) 10^3/uL MPV 9.1 (7.0-11.0) fl Neut % (Auto) 92.2 H (50.0-68.0) % Lymph % (Auto) 5.8 L (22.0-35.0) % [place] % (Auto) 1.9 (1.0-6.0) % Eos % (Auto) 0.0 L (1.5-5.0) % Baso % (Auto) 0.1 (0.0-3.0) % Lymph # (Auto) 1.0 L (1.2-3.4) [place] # (Auto) 0.3 (0.1-0.6) Eos # (Auto) 0.0 (0.0-0.7) Baso # (Auto) 0.01 (0.0-2.0) K/mm3 Absolute Neuts (auto) 15.51 H (1.4-6.5) Neutrophils % (Manual) 91 H (50.0-70.0) % Lymphocytes % (Manual) 5 L (22.0-35.0) % Atypical Lymphs % 2 H (0.0-0.0) % Monocytes % (Manual) 2 (1.0-6.0) % Sodium 140 (132-148) mmol/L Potassium 4.5 (3.6-5.0) mmol/L Chloride 109 H (98-107) mmol/L Carbon Dioxide 14 L (21-33) mmol/L Anion Gap 22 H (10-20) BUN 22 H (7-21) mg/dL Creatinine 0.8 (0.7-1.2) mg/dl Est GFR ( Amer) > 60 Est GFR (Non-Af Amer) > 60 POC Glucose (mg/dL) 369 H (65-110) mg/dL Random Glucose 322 H* (70-110) mg/dL Calcium 8.8 (8.4-10.5) mg/dL Total Bilirubin 0.7 (0.2-1.3) mg/dL AST 23 (14-36) U/L ALT 13 (7-56) U/L Alkaline Phosphatase 108 (38-126) U/L Lactate Dehydrogenase 706 H (333-699) U/L Total Creatine Kinase 161 (35-230) U/L Troponin I < 0.01 ng/mL Total Protein 8.4 H (5.8-8.3) g/dL Albumin 4.4 (3.0-4.8) g/dL Globulin 4.0 gm/dL Albumin/Globulin Ratio 1.1 (1.1-1.8) Amylase 107 (35-125) U/L Lipase 20 L (23-300) U/L Urine Color (YELLOW) Urine Appearance (CLEAR) Urine pH (4.7-8.0) Ur Specific [place] (1.005-1.035) Urine Protein (<30 mg/dL) mg/dL Urine Glucose (UA) (NEGATIVE) mg/dL Urine Ketones (NEGATIVE) mg/dL Urine Blood (NEGATIVE) Urine Nitrate (NEGATIVE) Urine Bilirubin (NEGATIVE) Urine Urobilinogen (<1 E.U./dL) E.U./dL Ur Leukocyte Esterase (NEGATIVE) Bro/uL Urine RBC (0-2) /hpf Urine WBC (0-6) /hpf Ur Epithelial Cells (0-5) /hpf Urine Bacteria (NONE) /hpf 03/13/19 03/13/19 Range/Units 20:57 19:43 WBC (4.5-11.0) 10^3/uL RBC (3.5-6.1) 10^6/uL Hgb (12.0-16.0) g/dL Hct (36.0-48.0) % MCV (80.0-105.0) fl MCH (25.0-35.0) pg MCHC (31.0-37.0) g/dl RDW (11.5-14.5) % Plt Count (120.0-450.0) 10^3/uL MPV (7.0-11.0) fl Neut % (Auto) (50.0-68.0) % Lymph % (Auto) (22.0-35.0) % [place] % (Auto) (1.0-6.0) % Eos % (Auto) (1.5-5.0) % Baso % (Auto) (0.0-3.0) % Lymph # (Auto) (1.2-3.4) [place] # (Auto) (0.1-0.6) Eos # (Auto) (0.0-0.7) Baso # (Auto) (0.0-2.0) K/mm3 Absolute Neuts (auto) (1.4-6.5) Neutrophils % (Manual) (50.0-70.0) % Lymphocytes % (Manual) (22.0-35.0) % Atypical Lymphs % (0.0-0.0) % Monocytes % (Manual) (1.0-6.0) % Sodium (132-148) mmol/L Potassium (3.6-5.0) mmol/L Chloride (98-107) mmol/L Carbon Dioxide (21-33) mmol/L Anion Gap (10-20) BUN (7-21) mg/dL Creatinine (0.7-1.2) mg/dl Est GFR ( Amer) Est GFR (Non-Af Amer) POC Glucose (mg/dL) 312 H (65-110) mg/dL Random Glucose (70-110) mg/dL Calcium (8.4-10.5) mg/dL Total Bilirubin (0.2-1.3) mg/dL AST (14-36) U/L ALT (7-56) U/L Alkaline Phosphatase (38-126) U/L Lactate Dehydrogenase (333-699) U/L Total Creatine Kinase (35-230) U/L Troponin I ng/mL Total Protein (5.8-8.3) g/dL Albumin (3.0-4.8) g/dL Globulin gm/dL Albumin/Globulin Ratio (1.1-1.8) Amylase (35-125) U/L Lipase (23-300) U/L Urine Color Yellow (YELLOW) Urine Appearance Sl cloudy (CLEAR) Urine pH 6.0 (4.7-8.0) Ur Specific [place] >= 1.030 (1.005-1.035) Urine Protein 30 H (<30 mg/dL) mg/dL Urine Glucose (UA) 500 H (NEGATIVE) mg/dL Urine Ketones >=80 (NEGATIVE) mg/dL Urine Blood Small H (NEGATIVE) Urine Nitrate Negative (NEGATIVE) Urine Bilirubin Negative (NEGATIVE) Urine Urobilinogen 0.2 (<1 E.U./dL) E.U./dL Ur Leukocyte Esterase Negative (NEGATIVE) Bro/uL Urine RBC 2 - 5 H (0-2) /hpf Urine WBC 10 - 15 H (0-6) /hpf Ur Epithelial Cells Many H (0-5) /hpf Urine Bacteria Mod (NONE) /hpf Laboratory Results - last 24 hr 03/13/19 03/13/19 03/13/19 19:43 20:57 21:03 WBC 16.8 H RBC 4.29 Hgb 10.8 L Hct 33.9 L MCV 79.0 L MCH 25.2 MCHC 31.9 RDW 15.4 H Plt Count 423 MPV 9.1 Neut % (Auto) 92.2 H Lymph % (Auto) 5.8 L [place] % (Auto) 1.9 Eos % (Auto) 0.0 L Baso % (Auto) 0.1 Lymph # (Auto) 1.0 L [place] # (Auto) 0.3 Eos # (Auto) 0.0 Baso # (Auto) 0.01 Absolute Neuts (auto) 15.51 H Neutrophils % (Manual) 91 H Lymphocytes % (Manual) 5 L Atypical Lymphs % 2 H Monocytes % (Manual) 2 Sodium Potassium Chloride Carbon Dioxide Anion Gap BUN Creatinine Est GFR ( Amer) Est GFR (Non-Af Amer) POC Glucose (mg/dL) 312 H Random Glucose Calcium Total Bilirubin AST ALT Alkaline Phosphatase Lactate Dehydrogenase Total Creatine Kinase Troponin I Total Protein Albumin Globulin Albumin/Globulin Ratio Amylase Lipase Urine Color Yellow Urine Appearance Sl cloudy Urine pH 6.0 Ur Specific [place] >= 1.030 Urine Protein 30 H Urine Glucose (UA) 500 H Urine Ketones >=80 Urine Blood Small H Urine Nitrate Negative Urine Bilirubin Negative Urine Urobilinogen 0.2 Ur Leukocyte Esterase Negative Urine RBC 2 - 5 H Urine WBC 10 - 15 H Ur Epithelial Cells Many H Urine Bacteria Mod 03/13/19 03/14/19 03/14/19 21:03 00:26 01:27 WBC RBC Hgb Hct MCV MCH MCHC RDW Plt Count MPV Neut % (Auto) Lymph % (Auto) [place] % (Auto) Eos % (Auto) Baso % (Auto) Lymph # (Auto) [place] # (Auto) Eos # (Auto) Baso # (Auto) Absolute Neuts (auto) Neutrophils % (Manual) Lymphocytes % (Manual) Atypical Lymphs % Monocytes % (Manual) Sodium 140 Potassium 4.5 Chloride 109 H Carbon Dioxide 14 L Anion Gap 22 H BUN 22 H Creatinine 0.8 Est GFR ( Amer) > 60 Est GFR (Non-Af Amer) > 60 POC Glucose (mg/dL) 369 H 377 H Random Glucose 322 H* Calcium 8.8 Total Bilirubin 0.7 AST 23 ALT 13 Alkaline Phosphatase 108 Lactate Dehydrogenase 706 H Total Creatine Kinase 161 Troponin I < 0.01 Total Protein 8.4 H Albumin 4.4 Globulin 4.0 Albumin/Globulin Ratio 1.1 Amylase 107 Lipase 20 L Urine Color Urine Appearance Urine pH Ur Specific [place] Urine Protein Urine Glucose (UA) Urine Ketones Urine Blood Urine Nitrate Urine Bilirubin Urine Urobilinogen Ur Leukocyte Esterase Urine RBC Urine WBC Ur Epithelial Cells Urine Bacteria 03/14/19 03/14/19 03/14/19 01:53 03:15 03:30 WBC RBC Hgb Hct MCV MCH MCHC RDW Plt Count MPV Neut % (Auto) Lymph % (Auto) [place] % (Auto) Eos % (Auto) Baso % (Auto) Lymph # (Auto) [place] # (Auto) Eos # (Auto) Baso # (Auto) Absolute Neuts (auto) Neutrophils % (Manual) Lymphocytes % (Manual) Atypical Lymphs % Monocytes % (Manual) Sodium 146 Potassium 4.4 Chloride 117 H Carbon Dioxide 15 L Anion Gap 19 BUN 20 Creatinine 0.9 Est GFR ( Amer) > 60 Est GFR (Non-Af Amer) > 60 POC Glucose (mg/dL) 322 H 220 H Random Glucose 207 H Calcium 9.0 Total Bilirubin AST ALT Alkaline Phosphatase Lactate Dehydrogenase Total Creatine Kinase Troponin I Total Protein Albumin Globulin Albumin/Globulin Ratio Amylase Lipase Urine Color Urine Appearance Urine pH Ur Specific [place] Urine Protein Urine Glucose (UA) Urine Ketones Urine Blood Urine Nitrate Urine Bilirubin Urine Urobilinogen Ur Leukocyte Esterase Urine RBC Urine WBC Ur Epithelial Cells Urine Bacteria 03/14/19 03/14/19 04:38 06:14 WBC RBC Hgb Hct MCV MCH MCHC RDW Plt Count MPV Neut % (Auto) Lymph % (Auto) [place] % (Auto) Eos % (Auto) Baso % (Auto) Lymph # (Auto) [place] # (Auto) Eos # (Auto) Baso # (Auto) Absolute Neuts (auto) Neutrophils % (Manual) Lymphocytes % (Manual) Atypical Lymphs % Monocytes % (Manual) Sodium Potassium Chloride Carbon Dioxide Anion Gap BUN Creatinine Est GFR ( Amer) Est GFR (Non-Af Amer) POC Glucose (mg/dL) 170 H 188 H Random Glucose Calcium Total Bilirubin AST ALT Alkaline Phosphatase Lactate Dehydrogenase Total Creatine Kinase Troponin I Total Protein Albumin Globulin Albumin/Globulin Ratio Amylase Lipase Urine Color Urine Appearance Urine pH Ur Specific [place] Urine Protein Urine Glucose (UA) Urine Ketones Urine Blood Urine Nitrate Urine Bilirubin Urine Urobilinogen Ur Leukocyte Esterase Urine RBC Urine WBC Ur Epithelial Cells Urine Bacteria EKG/Cardiology Studies: Cardiology / EKG Studies 03/13/19 19:13 ELECTROCARDIOGRAM Stat Comment: Reason For Exam: palpitations 03/14/19 ELECTROCARDIOGRAM Routine Comment: Reason For Exam: DKA Fingerstick Blood Sugar Results: 170 Critical Care Progress Note - Nutrition Nutrition: Nutrition Category Date Time Status Liquid Diet [DIET] Diets 03/14/19 Breakfast Ordered Assessment/Plan - Assessment and Plan (Free Text) Assessment: Pt is a 44 yo female with a PMH of uncontrolled DM1, DKA, gastroparesis, HTN, HLD, nephropathy, esophagitis, and gastric ulcer, presenting with nausea, vomiting, and palpitations. In ED, glucose levels was found to be in the 300's, anion gap of 22. Pt admitted to the ICU for DKA. Plan: Neuro - Patient is AOx3 Pulm - maintain O2 >92% Cardio - tachycardia, HTN - Likely 2/2 to pain - Lopressor 25mg PO BID - Morphine 2mg IVP Q4 PRN - Norvasc 5mg PO QD GI - Abdominal pain, nausea/ vomiting - CT abdomen/pelvis: follow up - Morphine 2mg IVP Q4 PRN - Lipase 20 - amylase 107 - Zofran PRN - NPO Nephro/ - monitor BUN/Cr - bolus 1L LR - repeat BMP 1pm Endo - DM2 with DKA - Glucose on admission: 322, Anion gap: 22 - Start Insulin IV drip - Accuchecks Q2H, BMP Q6H - Zofran PRN ID - Urine and blood cultures follow up - UA: negative for nitrates and LE. Positive for bacteria and WBC Pt seen, examined, assessment and plan discussed with Dr Stevan Abreu - Date & Time Date: 03/14/19 Time: 07:43 <Connor Calles - Last Filed: 03/14/19 14:06> CCU Objective - Vital Signs / Intake & Output Vital Signs (Last 4 hours): Vital Signs Pulse Resp BP Pulse Ox 03/14/19 13:10 112 H 12 100 03/14/19 13:00 113 H 99 03/14/19 12:50 110 H 15 100 03/14/19 12:40 110 H 16 100 03/14/19 12:30 111 H 19 149/80 99 03/14/19 12:28 118 H 23 03/14/19 12:24 120 H 138/73 98 03/14/19 12:20 120 H 42 H 100 03/14/19 12:19 121 H 45 H 03/14/19 12:18 118 H 63 H 03/14/19 12:17 119 H 89 H 03/14/19 12:10 109 H 16 100 03/14/19 12:00 109 H 17 100 03/14/19 11:50 113 H 20 100 03/14/19 11:40 108 H 14 98 03/14/19 11:30 120 H 18 144/82 100 03/14/19 11:20 100 03/14/19 11:10 119 H 33 H 100 03/14/19 11:00 128 H 43 H 100 03/14/19 10:50 122 H 22 100 03/14/19 10:40 125 H 29 H 99 03/14/19 10:30 120 H 26 H 100 03/14/19 10:21 120 H 15 131/76 99 03/14/19 10:20 119 H 15 99 03/14/19 10:10 123 H 20 100 Intake and Output (Last 8hrs): Intake & Output 03/13/19 03/14/19 03/14/19 22:59 06:59 14:59 Intake Total 4.5 Balance 4.5 Weight 185 lb 186 lb Intake: IV 4.5 - Medications Active Medications: Active Medications Generic Name Dose Route Start Last Admin Trade Name Freq PRN Reason Stop Dose Admin Amlodipine Besylate 5 mg 03/14/19 10:00 03/14/19 09:23 Norvasc PO 5 mg DAILY MICHELLE Administration Enoxaparin Sodium 40 mg 03/14/19 10:00 03/14/19 09:20 Lovenox SC 40 mg DAILY MICHELLE Administration Protocol Insulin Human Regular 100 100 mls @ 6 mls/hr 03/13/19 23:35 03/14/19 06:00 units/ Sodium Chloride IV 2 units/hr .[id number] PRN 2 mls/hr TITRATE PER MD ORDER Titration Protocol 6 UNITS/HR Ceftriaxone Sodium 1 gm in 100 mls @ 100 mls/hr 03/14/19 10:00 03/14/19 09:20 Rocephin 1 Gram Ivpb IVPB 03/21/19 10:01 100 mls/hr DAILY MICHELLE Administration Protocol Dextrose/Sodium Chloride 1,000 mls @ 100 mls/hr 03/14/19 09:00 03/14/19 09:11 Dextrose 5%/0.45% Ns 1000 Ml IV 100 mls/hr .Q10H MICHELLE Administration Lorazepam 0.5 mg 03/14/19 05:53 03/14/19 06:14 Ativan PO 0.5 mg Q12H PRN Administration Anxiety Protocol Metoprolol Tartrate 50 mg 03/14/19 10:00 03/14/19 09:52 Lopressor PO 50 mg BID MICHELLE Administration Morphine Sulfate 2 mg 03/13/19 19:18 03/14/19 11:36 Morphine IVP 2 mg Q4H PRN Administration Pain, moderate (4-7) Ondansetron HCl 4 mg 03/14/19 00:21 03/14/19 06:14 Zofran Inj IVP 4 mg Q4H PRN Administration Nausea/Vomiting Pantoprazole Sodium 40 mg 03/14/19 10:00 03/14/19 09:24 Protonix Inj IVP 40 mg DAILY MICHELLE Administration - Patient Studies Lab Studies: Lab Studies 03/14/19 03/14/19 03/14/19 Range/Units 09:57 08:30 08:30 WBC (4.5-11.0) 10^3/uL RBC (3.5-6.1) 10^6/uL Hgb (12.0-16.0) g/dL Hct (36.0-48.0) % MCV (80.0-105.0) fl MCH (25.0-35.0) pg MCHC (31.0-37.0) g/dl RDW (11.5-14.5) % Plt Count (120.0-450.0) 10^3/uL MPV (7.0-11.0) fl Neut % (Auto) (50.0-68.0) % Lymph % (Auto) (22.0-35.0) % [place] % (Auto) (1.0-6.0) % Eos % (Auto) (1.5-5.0) % Baso % (Auto) (0.0-3.0) % Lymph # (Auto) (1.2-3.4) [place] # (Auto) (0.1-0.6) Eos # (Auto) (0.0-0.7) Baso # (Auto) (0.0-2.0) K/mm3 Absolute Neuts (auto) (1.4-6.5) Neutrophils % (Manual) (50.0-70.0) % Lymphocytes % (Manual) (22.0-35.0) % Atypical Lymphs % (0.0-0.0) % Monocytes % (Manual) (1.0-6.0) % Sodium 145 (132-148) mmol/L Potassium 4.3 (3.6-5.0) mmol/L Chloride 117 H (98-107) mmol/L Carbon Dioxide 14 L (21-33) mmol/L Anion Gap 18 (10-20) BUN 20 (7-21) mg/dL Creatinine 1.0 (0.7-1.2) mg/dl Est GFR ( Amer) > 60 Est GFR (Non-Af Amer) > 60 POC Glucose (mg/dL) 163 H (65-110) mg/dL Random Glucose 196 H (70-110) mg/dL Calcium 8.7 (8.4-10.5) mg/dL Total Bilirubin (0.2-1.3) mg/dL AST (14-36) U/L ALT (7-56) U/L Alkaline Phosphatase (38-126) U/L Lactate Dehydrogenase (333-699) U/L Total Creatine Kinase (35-230) U/L Troponin I < 0.01 ng/mL Total Protein (5.8-8.3) g/dL Albumin (3.0-4.8) g/dL Globulin gm/dL Albumin/Globulin Ratio (1.1-1.8) Amylase (35-125) U/L Lipase (23-300) U/L Urine Color (YELLOW) Urine Appearance (CLEAR) Urine pH (4.7-8.0) Ur Specific [place] (1.005-1.035) Urine Protein (<30 mg/dL) mg/dL Urine Glucose (UA) (NEGATIVE) mg/dL Urine Ketones (NEGATIVE) mg/dL Urine Blood (NEGATIVE) Urine Nitrate (NEGATIVE) Urine Bilirubin (NEGATIVE) Urine Urobilinogen (<1 E.U./dL) E.U./dL Ur Leukocyte Esterase (NEGATIVE) Bro/uL Urine RBC (0-2) /hpf Urine WBC (0-6) /hpf Ur Epithelial Cells (0-5) /hpf Urine Bacteria (NONE) /hpf 03/14/19 03/14/19 03/14/19 Range/Units 07:22 06:14 04:38 WBC (4.5-11.0) 10^3/uL RBC (3.5-6.1) 10^6/uL Hgb (12.0-16.0) g/dL Hct (36.0-48.0) % MCV (80.0-105.0) fl MCH (25.0-35.0) pg MCHC (31.0-37.0) g/dl RDW (11.5-14.5) % Plt Count (120.0-450.0) 10^3/uL MPV (7.0-11.0) fl Neut % (Auto) (50.0-68.0) % Lymph % (Auto) (22.0-35.0) % [place] % (Auto) (1.0-6.0) % Eos % (Auto) (1.5-5.0) % Baso % (Auto) (0.0-3.0) % Lymph # (Auto) (1.2-3.4) [place] # (Auto) (0.1-0.6) Eos # (Auto) (0.0-0.7) Baso # (Auto) (0.0-2.0) K/mm3 Absolute Neuts (auto) (1.4-6.5) Neutrophils % (Manual) (50.0-70.0) % Lymphocytes % (Manual) (22.0-35.0) % Atypical Lymphs % (0.0-0.0) % Monocytes % (Manual) (1.0-6.0) % Sodium (132-148) mmol/L Potassium (3.6-5.0) mmol/L Chloride (98-107) mmol/L Carbon Dioxide (21-33) mmol/L Anion Gap (10-20) BUN (7-21) mg/dL Creatinine (0.7-1.2) mg/dl Est GFR ( Amer) Est GFR (Non-Af Amer) POC Glucose (mg/dL) 185 H 188 H 170 H (65-110) mg/dL Random Glucose (70-110) mg/dL Calcium (8.4-10.5) mg/dL Total Bilirubin (0.2-1.3) mg/dL AST (14-36) U/L ALT (7-56) U/L Alkaline Phosphatase (38-126) U/L Lactate Dehydrogenase (333-699) U/L Total Creatine Kinase (35-230) U/L Troponin I ng/mL Total Protein (5.8-8.3) g/dL Albumin (3.0-4.8) g/dL Globulin gm/dL Albumin/Globulin Ratio (1.1-1.8) Amylase (35-125) U/L Lipase (23-300) U/L Urine Color (YELLOW) Urine Appearance (CLEAR) Urine pH (4.7-8.0) Ur Specific [place] (1.005-1.035) Urine Protein (<30 mg/dL) mg/dL Urine Glucose (UA) (NEGATIVE) mg/dL Urine Ketones (NEGATIVE) mg/dL Urine Blood (NEGATIVE) Urine Nitrate (NEGATIVE) Urine Bilirubin (NEGATIVE) Urine Urobilinogen (<1 E.U./dL) E.U./dL Ur Leukocyte Esterase (NEGATIVE) Bro/uL Urine RBC (0-2) /hpf Urine WBC (0-6) /hpf Ur Epithelial Cells (0-5) /hpf Urine Bacteria (NONE) /hpf 03/14/19 03/14/19 03/14/19 Range/Units 03:30 03:15 01:53 WBC (4.5-11.0) 10^3/uL RBC (3.5-6.1) 10^6/uL Hgb (12.0-16.0) g/dL Hct (36.0-48.0) % MCV (80.0-105.0) fl MCH (25.0-35.0) pg MCHC (31.0-37.0) g/dl RDW (11.5-14.5) % Plt Count (120.0-450.0) 10^3/uL MPV (7.0-11.0) fl Neut % (Auto) (50.0-68.0) % Lymph % (Auto) (22.0-35.0) % [place] % (Auto) (1.0-6.0) % Eos % (Auto) (1.5-5.0) % Baso % (Auto) (0.0-3.0) % Lymph # (Auto) (1.2-3.4) [place] # (Auto) (0.1-0.6) Eos # (Auto) (0.0-0.7) Baso # (Auto) (0.0-2.0) K/mm3 Absolute Neuts (auto) (1.4-6.5) Neutrophils % (Manual) (50.0-70.0) % Lymphocytes % (Manual) (22.0-35.0) % Atypical Lymphs % (0.0-0.0) % Monocytes % (Manual) (1.0-6.0) % Sodium 146 (132-148) mmol/L Potassium 4.4 (3.6-5.0) mmol/L Chloride 117 H (98-107) mmol/L Carbon Dioxide 15 L (21-33) mmol/L Anion Gap 19 (10-20) BUN 20 (7-21) mg/dL Creatinine 0.9 (0.7-1.2) mg/dl Est GFR ( Amer) > 60 Est GFR (Non-Af Amer) > 60 POC Glucose (mg/dL) 220 H 322 H (65-110) mg/dL Random Glucose 207 H (70-110) mg/dL Calcium 9.0 (8.4-10.5) mg/dL Total Bilirubin (0.2-1.3) mg/dL AST (14-36) U/L ALT (7-56) U/L Alkaline Phosphatase (38-126) U/L Lactate Dehydrogenase (333-699) U/L Total Creatine Kinase (35-230) U/L Troponin I ng/mL Total Protein (5.8-8.3) g/dL Albumin (3.0-4.8) g/dL Globulin gm/dL Albumin/Globulin Ratio (1.1-1.8) Amylase (35-125) U/L Lipase (23-300) U/L Urine Color (YELLOW) Urine Appearance (CLEAR) Urine pH (4.7-8.0) Ur Specific [place] (1.005-1.035) Urine Protein (<30 mg/dL) mg/dL Urine Glucose (UA) (NEGATIVE) mg/dL Urine Ketones (NEGATIVE) mg/dL Urine Blood (NEGATIVE) Urine Nitrate (NEGATIVE) Urine Bilirubin (NEGATIVE) Urine Urobilinogen (<1 E.U./dL) E.U./dL Ur Leukocyte Esterase (NEGATIVE) Bro/uL Urine RBC (0-2) /hpf Urine WBC (0-6) /hpf Ur Epithelial Cells (0-5) /hpf Urine Bacteria (NONE) /hpf 03/14/19 03/14/19 03/13/19 Range/Units 01:27 00:26 21:03 WBC (4.5-11.0) 10^3/uL RBC (3.5-6.1) 10^6/uL Hgb (12.0-16.0) g/dL Hct (36.0-48.0) % MCV (80.0-105.0) fl MCH (25.0-35.0) pg MCHC (31.0-37.0) g/dl RDW (11.5-14.5) % Plt Count (120.0-450.0) 10^3/uL MPV (7.0-11.0) fl Neut % (Auto) (50.0-68.0) % Lymph % (Auto) (22.0-35.0) % [place] % (Auto) (1.0-6.0) % Eos % (Auto) (1.5-5.0) % Baso % (Auto) (0.0-3.0) % Lymph # (Auto) (1.2-3.4) [place] # (Auto) (0.1-0.6) Eos # (Auto) (0.0-0.7) Baso # (Auto) (0.0-2.0) K/mm3 Absolute Neuts (auto) (1.4-6.5) Neutrophils % (Manual) (50.0-70.0) % Lymphocytes % (Manual) (22.0-35.0) % Atypical Lymphs % (0.0-0.0) % Monocytes % (Manual) (1.0-6.0) % Sodium 140 (132-148) mmol/L Potassium 4.5 (3.6-5.0) mmol/L Chloride 109 H (98-107) mmol/L Carbon Dioxide 14 L (21-33) mmol/L Anion Gap 22 H (10-20) BUN 22 H (7-21) mg/dL Creatinine 0.8 (0.7-1.2) mg/dl Est GFR ( Amer) > 60 Est GFR (Non-Af Amer) > 60 POC Glucose (mg/dL) 377 H 369 H (65-110) mg/dL Random Glucose 322 H* (70-110) mg/dL Calcium 8.8 (8.4-10.5) mg/dL Total Bilirubin 0.7 (0.2-1.3) mg/dL AST 23 (14-36) U/L ALT 13 (7-56) U/L Alkaline Phosphatase 108 (38-126) U/L Lactate Dehydrogenase 706 H (333-699) U/L Total Creatine Kinase 161 (35-230) U/L Troponin I < 0.01 ng/mL Total Protein 8.4 H (5.8-8.3) g/dL Albumin 4.4 (3.0-4.8) g/dL Globulin 4.0 gm/dL Albumin/Globulin Ratio 1.1 (1.1-1.8) Amylase 107 (35-125) U/L Lipase 20 L (23-300) U/L Urine Color (YELLOW) Urine Appearance (CLEAR) Urine pH (4.7-8.0) Ur Specific [place] (1.005-1.035) Urine Protein (<30 mg/dL) mg/dL Urine Glucose (UA) (NEGATIVE) mg/dL Urine Ketones (NEGATIVE) mg/dL Urine Blood (NEGATIVE) Urine Nitrate (NEGATIVE) Urine Bilirubin (NEGATIVE) Urine Urobilinogen (<1 E.U./dL) E.U./dL Ur Leukocyte Esterase (NEGATIVE) Bro/uL Urine RBC (0-2) /hpf Urine WBC (0-6) /hpf Ur Epithelial Cells (0-5) /hpf Urine Bacteria (NONE) /hpf 03/13/19 03/13/19 03/13/19 Range/Units 21:03 20:57 19:43 WBC 16.8 H (4.5-11.0) 10^3/uL RBC 4.29 (3.5-6.1) 10^6/uL Hgb 10.8 L (12.0-16.0) g/dL Hct 33.9 L (36.0-48.0) % MCV 79.0 L (80.0-105.0) fl MCH 25.2 (25.0-35.0) pg MCHC 31.9 (31.0-37.0) g/dl RDW 15.4 H (11.5-14.5) % Plt Count 423 (120.0-450.0) 10^3/uL MPV 9.1 (7.0-11.0) fl Neut % (Auto) 92.2 H (50.0-68.0) % Lymph % (Auto) 5.8 L (22.0-35.0) % [place] % (Auto) 1.9 (1.0-6.0) % Eos % (Auto) 0.0 L (1.5-5.0) % Baso % (Auto) 0.1 (0.0-3.0) % Lymph # (Auto) 1.0 L (1.2-3.4) [place] # (Auto) 0.3 (0.1-0.6) Eos # (Auto) 0.0 (0.0-0.7) Baso # (Auto) 0.01 (0.0-2.0) K/mm3 Absolute Neuts (auto) 15.51 H (1.4-6.5) Neutrophils % (Manual) 91 H (50.0-70.0) % Lymphocytes % (Manual) 5 L (22.0-35.0) % Atypical Lymphs % 2 H (0.0-0.0) % Monocytes % (Manual) 2 (1.0-6.0) % Sodium (132-148) mmol/L Potassium (3.6-5.0) mmol/L Chloride (98-107) mmol/L Carbon Dioxide (21-33) mmol/L Anion Gap (10-20) BUN (7-21) mg/dL Creatinine (0.7-1.2) mg/dl Est GFR ( Amer) Est GFR (Non-Af Amer) POC Glucose (mg/dL) 312 H (65-110) mg/dL Random Glucose (70-110) mg/dL Calcium (8.4-10.5) mg/dL Total Bilirubin (0.2-1.3) mg/dL AST (14-36) U/L ALT (7-56) U/L Alkaline Phosphatase (38-126) U/L Lactate Dehydrogenase (333-699) U/L Total Creatine Kinase (35-230) U/L Troponin I ng/mL Total Protein (5.8-8.3) g/dL Albumin (3.0-4.8) g/dL Globulin gm/dL Albumin/Globulin Ratio (1.1-1.8) Amylase (35-125) U/L Lipase (23-300) U/L Urine Color Yellow (YELLOW) Urine Appearance Sl cloudy (CLEAR) Urine pH 6.0 (4.7-8.0) Ur Specific [place] >= 1.030 (1.005-1.035) Urine Protein 30 H (<30 mg/dL) mg/dL Urine Glucose (UA) 500 H (NEGATIVE) mg/dL Urine Ketones >=80 (NEGATIVE) mg/dL Urine Blood Small H (NEGATIVE) Urine Nitrate Negative (NEGATIVE) Urine Bilirubin Negative (NEGATIVE) Urine Urobilinogen 0.2 (<1 E.U./dL) E.U./dL Ur Leukocyte Esterase Negative (NEGATIVE) Bro/uL Urine RBC 2 - 5 H (0-2) /hpf Urine WBC 10 - 15 H (0-6) /hpf Ur Epithelial Cells Many H (0-5) /hpf Urine Bacteria Mod (NONE) /hpf Laboratory Results - last 24 hr 03/13/19 03/13/19 03/13/19 19:43 20:57 21:03 WBC 16.8 H RBC 4.29 Hgb 10.8 L Hct 33.9 L MCV 79.0 L MCH 25.2 MCHC 31.9 RDW 15.4 H Plt Count 423 MPV 9.1 Neut % (Auto) 92.2 H Lymph % (Auto) 5.8 L [place] % (Auto) 1.9 Eos % (Auto) 0.0 L Baso % (Auto) 0.1 Lymph # (Auto) 1.0 L [place] # (Auto) 0.3 Eos # (Auto) 0.0 Baso # (Auto) 0.01 Absolute Neuts (auto) 15.51 H Neutrophils % (Manual) 91 H Lymphocytes % (Manual) 5 L Atypical Lymphs % 2 H Monocytes % (Manual) 2 Sodium Potassium Chloride Carbon Dioxide Anion Gap BUN Creatinine Est GFR ( Amer) Est GFR (Non-Af Amer) POC Glucose (mg/dL) 312 H Random Glucose Calcium Total Bilirubin AST ALT Alkaline Phosphatase Lactate Dehydrogenase Total Creatine Kinase Troponin I Total Protein Albumin Globulin Albumin/Globulin Ratio Amylase Lipase Urine Color Yellow Urine Appearance Sl cloudy Urine pH 6.0 Ur Specific [place] >= 1.030 Urine Protein 30 H Urine Glucose (UA) 500 H Urine Ketones >=80 Urine Blood Small H Urine Nitrate Negative Urine Bilirubin Negative Urine Urobilinogen 0.2 Ur Leukocyte Esterase Negative Urine RBC 2 - 5 H Urine WBC 10 - 15 H Ur Epithelial Cells Many H Urine Bacteria Mod 03/13/19 03/14/19 03/14/19 21:03 00:26 01:27 WBC RBC Hgb Hct MCV MCH MCHC RDW Plt Count MPV Neut % (Auto) Lymph % (Auto) [place] % (Auto) Eos % (Auto) Baso % (Auto) Lymph # (Auto) [place] # (Auto) Eos # (Auto) Baso # (Auto) Absolute Neuts (auto) Neutrophils % (Manual) Lymphocytes % (Manual) Atypical Lymphs % Monocytes % (Manual) Sodium 140 Potassium 4.5 Chloride 109 H Carbon Dioxide 14 L Anion Gap 22 H BUN 22 H Creatinine 0.8 Est GFR ( Amer) > 60 Est GFR (Non-Af Amer) > 60 POC Glucose (mg/dL) 369 H 377 H Random Glucose 322 H* Calcium 8.8 Total Bilirubin 0.7 AST 23 ALT 13 Alkaline Phosphatase 108 Lactate Dehydrogenase 706 H Total Creatine Kinase 161 Troponin I < 0.01 Total Protein 8.4 H Albumin 4.4 Globulin 4.0 Albumin/Globulin Ratio 1.1 Amylase 107 Lipase 20 L Urine Color Urine Appearance Urine pH Ur Specific [place] Urine Protein Urine Glucose (UA) Urine Ketones Urine Blood Urine Nitrate Urine Bilirubin Urine Urobilinogen Ur Leukocyte Esterase Urine RBC Urine WBC Ur Epithelial Cells Urine Bacteria 03/14/19 03/14/19 03/14/19 01:53 03:15 03:30 WBC RBC Hgb Hct MCV MCH MCHC RDW Plt Count MPV Neut % (Auto) Lymph % (Auto) [place] % (Auto) Eos % (Auto) Baso % (Auto) Lymph # (Auto) [place] # (Auto) Eos # (Auto) Baso # (Auto) Absolute Neuts (auto) Neutrophils % (Manual) Lymphocytes % (Manual) Atypical Lymphs % Monocytes % (Manual) Sodium 146 Potassium 4.4 Chloride 117 H Carbon Dioxide 15 L Anion Gap 19 BUN 20 Creatinine 0.9 Est GFR ( Amer) > 60 Est GFR (Non-Af Amer) > 60 POC Glucose (mg/dL) 322 H 220 H Random Glucose 207 H Calcium 9.0 Total Bilirubin AST ALT Alkaline Phosphatase Lactate Dehydrogenase Total Creatine Kinase Troponin I Total Protein Albumin Globulin Albumin/Globulin Ratio Amylase Lipase Urine Color Urine Appearance Urine pH Ur Specific [place] Urine Protein Urine Glucose (UA) Urine Ketones Urine Blood Urine Nitrate Urine Bilirubin Urine Urobilinogen Ur Leukocyte Esterase Urine RBC Urine WBC Ur Epithelial Cells Urine Bacteria 03/14/19 03/14/19 03/14/19 04:38 06:14 07:22 WBC RBC Hgb Hct MCV MCH MCHC RDW Plt Count MPV Neut % (Auto) Lymph % (Auto) [place] % (Auto) Eos % (Auto) Baso % (Auto) Lymph # (Auto) [place] # (Auto) Eos # (Auto) Baso # (Auto) Absolute Neuts (auto) Neutrophils % (Manual) Lymphocytes % (Manual) Atypical Lymphs % Monocytes % (Manual) Sodium Potassium Chloride Carbon Dioxide Anion Gap BUN Creatinine Est GFR ( Amer) Est GFR (Non-Af Amer) POC Glucose (mg/dL) 170 H 188 H 185 H Random Glucose Calcium Total Bilirubin AST ALT Alkaline Phosphatase Lactate Dehydrogenase Total Creatine Kinase Troponin I Total Protein Albumin Globulin Albumin/Globulin Ratio Amylase Lipase Urine Color Urine Appearance Urine pH Ur Specific [place] Urine Protein Urine Glucose (UA) Urine Ketones Urine Blood Urine Nitrate Urine Bilirubin Urine Urobilinogen Ur Leukocyte Esterase Urine RBC Urine WBC Ur Epithelial Cells Urine Bacteria 03/14/19 03/14/19 03/14/19 08:30 08:30 09:57 WBC RBC Hgb Hct MCV MCH MCHC RDW Plt Count MPV Neut % (Auto) Lymph % (Auto) [place] % (Auto) Eos % (Auto) Baso % (Auto) Lymph # (Auto) [place] # (Auto) Eos # (Auto) Baso # (Auto) Absolute Neuts (auto) Neutrophils % (Manual) Lymphocytes % (Manual) Atypical Lymphs % Monocytes % (Manual) Sodium 145 Potassium 4.3 Chloride 117 H Carbon Dioxide 14 L Anion Gap 18 BUN 20 Creatinine 1.0 Est GFR ( Amer) > 60 Est GFR (Non-Af Amer) > 60 POC Glucose (mg/dL) 163 H Random Glucose 196 H Calcium 8.7 Total Bilirubin AST ALT Alkaline Phosphatase Lactate Dehydrogenase Total Creatine Kinase Troponin I < 0.01 Total Protein Albumin Globulin Albumin/Globulin Ratio Amylase Lipase Urine Color Urine Appearance Urine pH Ur Specific [place] Urine Protein Urine Glucose (UA) Urine Ketones Urine Blood Urine Nitrate Urine Bilirubin Urine Urobilinogen Ur Leukocyte Esterase Urine RBC Urine WBC Ur Epithelial Cells Urine Bacteria Radiology Impressions: Radiology Impressions Abdomen/Pelvis CT 03/13/19 22:57 IMPRESSION: No acute or significant findings related to/ accounting for the clinical presentation. Additional benign and/or incidental findings described above. No significant interval change compared to the prior examination(s). Concordant results (preliminary interpretation) provided by [employer] [facility]. Procedure Completed: 23:11. Preliminary Report: Interpreted and electronically signed: 00:47. Final Interpretation: 09:55. Chest X-Ray 03/14/19 06:39 IMPRESSION: No active disease. No significant interval change compared to the prior examination(s). EKG/Cardiology Studies: Cardiology / EKG Studies 03/13/19 19:13 ELECTROCARDIOGRAM Stat Comment: Reason For Exam: palpitations 03/14/19 ELECTROCARDIOGRAM Routine Comment: Reason For Exam: DKA Critical Care Progress Note - Nutrition Nutrition: Nutrition Category Date Time Status Liquid Diet [DIET] Diets 03/14/19 Breakfast Ordered
--- NOTE | 2019-03-14 07:55 | CP.PCM.CON ---
History of Present Illness - History of Present Illness History of Present Illness: PGY-[address] Campo Endo Consult: DKA Ms Live, 44F, with PMHx uncontrolled DM type 1, DKA, gastroparesis, nephropathy, hypertension, hyperlipidemia, esophagitis, and gastric ulcer, C/O nausea, vomiting, and palpitations for 1 day. Pt had a "bad cold" last week with decrease appetite, finished PO antibiotics course. Yesterday, she felt N/V. Pt missed her insulin doses because she did not eat or drink x 1 day. She could not tolerate any PO intake. In ED, glucose levels was found to be in the 300's with an anion gap of 22. Patient was started on an Insulin drip. Home insulin: humalog 5 ACTID and Basaglar 7 HS ROS - Denies fevers, chills, hematemesis, shortness of breath, chest pain, diarrhea, or urinary symptoms. 12-point ROS reviewed and negative except mentioned in HPI. PMHx: uncontrolled DM type 1 (Dx 17 y.o, A1C 10.4, 2018), DKA, gastroparesis (responded to botox in the past), nephropathy (proteinuria), retinopathy, polyneuropathy, HTN, HLD, PAD, foot ulcers esophagitis, and gastric ulcer, Hx L ft osteomyelitis Anxiety PSHx: denies Last EGD Nov 2016 with LA C Esophagitis, gastric and duodenal ulcers Bx negative for Hpylori, dysplasia/metaplasia). 2018, [facility] with botox injections. Family Hx: HTN, DM in multiple family members Social Hx: Denies alcohol, tobacco, or illicit drug use. Allergies: Metoclopramide Medications: See JAN PMD: Dr. Theodore Past Patient History - Infectious Disease Hx of Infectious Diseases: None - Tetanus Immunizations Tetanus Immunization: Unknown - Past Social History Smoking Status: Never Smoked - CARDIAC Hx Cardiac Disorders: Yes Hx Hypertension: Yes - PULMONARY Hx Respiratory Disorders: No - NEUROLOGICAL Hx Neurological Disorder: Yes (NEUROPATHY) - HEENT Hx HEENT Problems: Yes Other/Comment: wears glasses-nearsighted - RENAL Hx Chronic Kidney Disease: No - ENDOCRINE/METABOLIC Hx Diabetes Mellitus Type 1: Yes (hx DKA) - HEMATOLOGICAL/ONCOLOGICAL Hx Anemia: Yes - INTEGUMENTARY Hx Dermatological Problems: Yes (hx diabetic foot ulcers) - MUSCULOSKELETAL/RHEUMATOLOGICAL Hx Falls: No - GASTROINTESTINAL Hx Gastrointestinal Disorders: Yes (gastritis,gastroparesis) Hx Gastroesophageal Reflux: Yes - GENITOURINARY/GYNECOLOGICAL Hx Urinary Tract Infection: Yes - PSYCHIATRIC Hx Psychophysiologic Disorder: Yes Hx Anxiety: Yes Hx Substance Use: No - SURGICAL HISTORY Hx Cardiac Catheterization: No Other/Comment: endoscopy with BOTOX - ANESTHESIA Hx Anesthesia: No Hx Anesthesia Reactions: No Hx Malignant Hyperthermia: No Meds Allergies/Adverse Reactions: Allergies Allergy/AdvReac Type Severity Reaction Status Date / Time metoclopramide HCl AdvReac VOMITING Verified 05/04/18 14:22 [From Reglan] - Medications Medications: Current Medications Amlodipine Besylate (Norvasc) 5 mg PO DAILY [facility] Enoxaparin Sodium (Lovenox) 40 mg SC DAILY MICHELLE; Protocol Insulin Human Regular 100 (units/ Sodium Chloride) 100 mls @ 6 mls/hr IV .[id number] PRN; Protocol PRN Reason: TITRATE PER MD ORDER Last Titration: 03/14/19 06:00 Dose: 2 units/hr, 2 mls/hr Sodium Chloride (Sodium Chloride 0.9%) 1,000 mls @ 100 mls/hr IV .Q10H MICHELLE Last Admin: 03/14/19 02:07 Dose: 100 mls/hr Ceftriaxone Sodium (Rocephin 1 Gram Ivpb) 1 gm in 100 mls @ 100 mls/hr IVPB DAILY MICHELLE; Protocol Stop: 03/21/19 10:01 Lorazepam (Ativan) 0.5 mg PO Q12H PRN; Protocol PRN Reason: Anxiety Last Admin: 03/14/19 06:14 Dose: 0.5 mg Metoprolol Tartrate (Lopressor) 25 mg PO BID [facility] Morphine Sulfate (Morphine) 2 mg IVP Q4H PRN PRN Reason: Pain, moderate (4-7) Last Admin: 03/14/19 06:13 Dose: 2 mg Ondansetron HCl (Zofran Inj) 4 mg IVP Q4H PRN PRN Reason: Nausea/Vomiting Last Admin: 03/14/19 06:14 Dose: 4 mg Pantoprazole Sodium (Protonix Inj) 40 mg IVP DAILY [facility] Physical Exam - Constitutional Appears: No Acute Distress - Head Exam Head Exam: NORMAL INSPECTION - Eye Exam Eye Exam: EOMI, Normal appearance, PERRL. absent: Scleral icterus Pupil Exam: NORMAL ACCOMODATION - ENT Exam ENT Exam: Mucous Membranes Moist - Neck Exam Additional comments: supple. - Respiratory Exam Respiratory Exam: Clear to Auscultation Bilateral. absent: Rales, Rhonchi, Wheezes - Cardiovascular Exam Cardiovascular Exam: Tachycardia (due to pain), REGULAR RHYTHM (due to abdominal pain), +S1, +S2 - GI/Abdominal Exam GI & Abdominal Exam: Hypoactive Bowel Sounds, Soft, Tenderness. absent: Firm, Guarding - Extremities Exam Extremities exam: Positive for: pedal pulses present. Negative for: calf tenderness, pedal edema - Neurological Exam Neurological exam: Alert, CN II-XII Intact, Oriented x3 - Psychiatric Exam Psychiatric exam: Normal Affect, Normal Mood - Skin Skin Exam: Dry, Warm Results - Vital Signs Recent Vital Signs: Last Vital Signs Temp 98 F 03/14/19 01:56 Pulse 130 H 03/14/19 04:00 Resp 18 03/14/19 01:56 BP 110/68 03/14/19 01:48 Pulse Ox 98 03/14/19 01:48 - Labs Result Diagrams: 03/13/19 21:03 03/14/19 15:23 Labs: Laboratory Results - last 24 hr 03/13/19 03/13/19 03/13/19 19:43 20:57 21:03 WBC 16.8 H RBC 4.29 Hgb 10.8 L Hct 33.9 L MCV 79.0 L MCH 25.2 MCHC 31.9 RDW 15.4 H Plt Count 423 MPV 9.1 Neut % (Auto) 92.2 H Lymph % (Auto) 5.8 L [place] % (Auto) 1.9 Eos % (Auto) 0.0 L Baso % (Auto) 0.1 Lymph # (Auto) 1.0 L [place] # (Auto) 0.3 Eos # (Auto) 0.0 Baso # (Auto) 0.01 Absolute Neuts (auto) 15.51 H Neutrophils % (Manual) 91 H Lymphocytes % (Manual) 5 L Atypical Lymphs % 2 H Monocytes % (Manual) 2 Sodium Potassium Chloride Carbon Dioxide Anion Gap BUN Creatinine Est GFR ( Amer) Est GFR (Non-Af Amer) POC Glucose (mg/dL) 312 H Random Glucose Calcium Total Bilirubin AST ALT Alkaline Phosphatase Lactate Dehydrogenase Total Creatine Kinase Troponin I Total Protein Albumin Globulin Albumin/Globulin Ratio Amylase Lipase Urine Color Yellow Urine Appearance Sl cloudy Urine pH 6.0 Ur Specific [place] >= 1.030 Urine Protein 30 H Urine Glucose (UA) 500 H Urine Ketones >=80 Urine Blood Small H Urine Nitrate Negative Urine Bilirubin Negative Urine Urobilinogen 0.2 Ur Leukocyte Esterase Negative Urine RBC 2 - 5 H Urine WBC 10 - 15 H Ur Epithelial Cells Many H Urine Bacteria Mod 03/13/19 03/14/19 03/14/19 21:03 00:26 01:27 WBC RBC Hgb Hct MCV MCH MCHC RDW Plt Count MPV Neut % (Auto) Lymph % (Auto) [place] % (Auto) Eos % (Auto) Baso % (Auto) Lymph # (Auto) [place] # (Auto) Eos # (Auto) Baso # (Auto) Absolute Neuts (auto) Neutrophils % (Manual) Lymphocytes % (Manual) Atypical Lymphs % Monocytes % (Manual) Sodium 140 Potassium 4.5 Chloride 109 H Carbon Dioxide 14 L Anion Gap 22 H BUN 22 H Creatinine 0.8 Est GFR ( Amer) > 60 Est GFR (Non-Af Amer) > 60 POC Glucose (mg/dL) 369 H 377 H Random Glucose 322 H* Calcium 8.8 Total Bilirubin 0.7 AST 23 ALT 13 Alkaline Phosphatase 108 Lactate Dehydrogenase 706 H Total Creatine Kinase 161 Troponin I < 0.01 Total Protein 8.4 H Albumin 4.4 Globulin 4.0 Albumin/Globulin Ratio 1.1 Amylase 107 Lipase 20 L Urine Color Urine Appearance Urine pH Ur Specific [place] Urine Protein Urine Glucose (UA) Urine Ketones Urine Blood Urine Nitrate Urine Bilirubin Urine Urobilinogen Ur Leukocyte Esterase Urine RBC Urine WBC Ur Epithelial Cells Urine Bacteria 03/14/19 03/14/19 03/14/19 01:53 03:15 03:30 WBC RBC Hgb Hct MCV MCH MCHC RDW Plt Count MPV Neut % (Auto) Lymph % (Auto) [place] % (Auto) Eos % (Auto) Baso % (Auto) Lymph # (Auto) [place] # (Auto) Eos # (Auto) Baso # (Auto) Absolute Neuts (auto) Neutrophils % (Manual) Lymphocytes % (Manual) Atypical Lymphs % Monocytes % (Manual) Sodium 146 Potassium 4.4 Chloride 117 H Carbon Dioxide 15 L Anion Gap 19 BUN 20 Creatinine 0.9 Est GFR ( Amer) > 60 Est GFR (Non-Af Amer) > 60 POC Glucose (mg/dL) 322 H 220 H Random Glucose 207 H Calcium 9.0 Total Bilirubin AST ALT Alkaline Phosphatase Lactate Dehydrogenase Total Creatine Kinase Troponin I Total Protein Albumin Globulin Albumin/Globulin Ratio Amylase Lipase Urine Color Urine Appearance Urine pH Ur Specific [place] Urine Protein Urine Glucose (UA) Urine Ketones Urine Blood Urine Nitrate Urine Bilirubin Urine Urobilinogen Ur Leukocyte Esterase Urine RBC Urine WBC Ur Epithelial Cells Urine Bacteria 03/14/19 03/14/19 04:38 06:14 WBC RBC Hgb Hct MCV MCH MCHC RDW Plt Count MPV Neut % (Auto) Lymph % (Auto) [place] % (Auto) Eos % (Auto) Baso % (Auto) Lymph # (Auto) [place] # (Auto) Eos # (Auto) Baso # (Auto) Absolute Neuts (auto) Neutrophils % (Manual) Lymphocytes % (Manual) Atypical Lymphs % Monocytes % (Manual) Sodium Potassium Chloride Carbon Dioxide Anion Gap BUN Creatinine Est GFR ( Amer) Est GFR (Non-Af Amer) POC Glucose (mg/dL) 170 H 188 H Random Glucose Calcium Total Bilirubin AST ALT Alkaline Phosphatase Lactate Dehydrogenase Total Creatine Kinase Troponin I Total Protein Albumin Globulin Albumin/Globulin Ratio Amylase Lipase Urine Color Urine Appearance Urine pH Ur Specific [place] Urine Protein Urine Glucose (UA) Urine Ketones Urine Blood Urine Nitrate Urine Bilirubin Urine Urobilinogen Ur Leukocyte Esterase Urine RBC Urine WBC Ur Epithelial Cells Urine Bacteria Assessment & Plan - Assessment and Plan (Free Text) Plan: DKA likely precipitate from recent cold vsw UTI on ceftriaxone - insulin gtt until gap closed, BMP q4, hourly acucheck - replete K when it is below 4 and dextrose/half-NS IVF when sugar < 250 - After gap closed, calculate total insulin required to close the gap then calculate the daily requirement from the total. Give 1/4 levemir of calculated daily total, maintain dextrose IVF 1-2 hours, see if pt tolerate PO - pain control and antinausea control, PPI s/r/d/w Dr Campo
[2019-03-14] MEDS ORDERED: Insulin Detemir 100 units/ml Vial (Levemir) SC ONE ×2 (08:46→16:06)
[2019-03-14] MEDS ORDERED: Dextrose 5%/0.45% NS 1,000 ML IV SCH (09:00)
[2019-03-14 09:06] LABS: BLOOD UREA NITROGEN 20 mg/dL (7-21); CALCIUM 8.7 mg/dL (8.4-10.5); GFR NON-AFRICAN AMERICAN > 60
[2019-03-14] MEDS: Enoxaparin 40 mg Syringe SC SCH (09:20)
[2019-03-14] MEDS: cefTRIAXone 1 gm 1 GM/100 ML BAG IVPB SCH (09:20)
[2019-03-14] MEDS ORDERED: Lactated Ringer's 1,000 ML IV SCH (09:30)
--- NOTE | 2019-03-14 09:58 | CT ---
Date of service: 03/13/2019 PROCEDURE: CT Abdomen and Pelvis without intravenous contrast HISTORY: abd pain COMPARISON: 03/15/2018, 06/03/[address] scans abdomen and pelvis. TECHNIQUE: Unenhanced. Neither IV nor oral contrast administered Radiation dose: Total exam DLP = 685.82 mGy-cm. This CT exam was performed using one or more of the following dose reduction techniques: Automated exposure control, adjustment of the mA and/or kV according to patient size, and/or use of iterative reconstruction technique. FINDINGS: LOWER THORAX: Unremarkable. LIVER: Unremarkable. No gross lesion or ductal dilatation. GALLBLADDER AND BILE DUCTS: Unremarkable. PANCREAS: Unremarkable. No gross lesion or ductal dilatation. SPLEEN: Unremarkable. ADRENALS: Unremarkable. No mass. KIDNEYS AND URETERS: Unremarkable. No hydronephrosis. No solid mass. VASCULATURE: Unremarkable. No aortic aneurysm. No atherosclerotic calcification or mural plaque present. BOWEL: Unremarkable. No obstruction. No gross mural thickening. APPENDIX: Unremarkable. Normal appendix. PERITONEUM: Trace free fluid in the cul-de-sac. No free air identified. LYMPH NODES: Unremarkable. No enlarged lymph nodes. BLADDER: Unremarkable. REPRODUCTIVE: Unremarkable. Resolution of previously identified adnexal cysts. BONES: No acute fracture. OTHER FINDINGS: None. IMPRESSION: No acute or significant findings related to/ accounting for the clinical presentation. Additional benign and/or incidental findings described above. No significant interval change compared to the prior examination(s). Concordant results (preliminary interpretation) provided by [employer]. Procedure Completed: 23:11. Preliminary Report: Interpreted and electronically signed: 00:47. Final Interpretation: 09:55.
--- NOTE | 2019-03-14 10:45 | CARD ---
APPROVED REPORT Date of service: 03/14/2019 EKG Measurement Heart [id number] <Conclusion> Sinus tachycardia Possible Left atrial enlargement Borderline ECG
--- NOTE | 2019-03-14 10:50 | CARD ---
APPROVED REPORT Date of service: 03/13/2019 EKG Measurement Heart [id number] <Conclusion> Sinus tachycardia Possible Left atrial enlargement Cannot rule out Anterior infarct, age undetermined Abnormal ECG
[2019-03-14] MEDS ORDERED: Insulin Reg-MEDIUM-Coverage SC SCH (11:30)
--- NOTE | 2019-03-14 12:29 | PCM.PROC ---
Procedures Attestation:: I certify that I have explained the specified Operation(s) or Procedure(s), risks, benefits and reasonable alternatives to the Patient and/or other person responsible. The opportunity was given to ask questions and all questions answered - Central Line Placement Right Femoral Triple Lumen Catheter Aseptic technique was employed throughout the procedure: Hand Hygiene done prior to procedure, Full sterile barriers (mask, hair cover, sterile gown, sterile gloves), Chloraprep Antiseptic: 30 second prep for IJ or SC sites CVP Time Out Performed: Yes Pt. Placed on Pulse Ox Monitor: Yes Central Line Prep: Chlorhexidine-Alcohol Combination Local Anesthesia Used: Lidocaine 1% Ultrasound Used for Placement: Yes Central Line Lumen Inserted: triple Central Line Length: 20 cm Post Procedure: Sutured in Place, Good Blood Return, All Ports Aspirated, Flushed, Capped, Sterile Dressing Applied Secured by: Suture Post procedure dressing: Chlorhexidine disc (Biopatch) Patient Tolerated Procedure: Well, No Complications Immediate Complications: None Additional Comments: Placement of the TLC in the right IJ was attempted prior to right femoral placement. However, patient was unable to lay flat for right IJ placement due to nausea and vomiting. For this reason, TLC was placed in right femoral.
--- NOTE | 2019-03-14 12:37 | RAD ---
Date of service: 03/14/2019 HISTORY: Pneumonia suspected. COMPARISON: 06/03/2018. FINDINGS: LUNGS: No active pulmonary disease. PLEURA: No significant pleural effusion identified, no pneumothorax apparent. CARDIOVASCULAR: No atherosclerotic calcification present No radiographic findings to suggest acute or significant cardiovascular disease. Removal of support apparatus since the prior study: Venous access catheter. OSSEOUS STRUCTURES: No significant abnormalities. VISUALIZED UPPER ABDOMEN: Normal. OTHER FINDINGS: None. IMPRESSION: No active disease. No significant interval change compared to the prior examination(s).
--- NOTE | 2019-03-14 13:55 | HP ---
DATE OF EXAM: 03/14/2019 HISTORY OF PRESENT ILLNESS: She is a 44-year-old female, whom I know very well, who presents to the emergency room with nausea, vomiting, palpitation, abdominal pain, not feeling well all morning and comes to the emergency room, it looks like she is in DKA, She is a 44-year-old female, with past medical history of diabetes, DKA, gastroparesis, neuropathy, hypertension, high cholesterol, esophagitis, and gastric ulcers, who is now back in DKA in the emergency room and called in Infectious Disease and Endocrinology. She has hypertension. She has neuropathy. She wears glasses, had DKA in the past with type 1 diabetes, anemia, history of diabetic foot ulcers, gastritis, gastroparesis, GERD, and urinary tract infection history. She has some psychological issues, anxiety. No surgeries. Endoscopy with Botox in the past. FAMILY HISTORY: Unknown family history. SOCIAL HISTORY: Nonsmoker. Nondrinker. No drugs. ALLERGIES: TO METOCLOPRAMIDE, WHICH IS REGLAN. REVIEW OF SYSTEMS: She is very uncomfortable in bed. She is throwing up right in front of me on the floor; could not get a bucket on time be a lot of abdominal pain, very uncomfortable. No shortness of breath or cough. There are palpitations and heart rate in the 130s on the monitor. She has abdominal pain, nausea and vomiting. No problems urinating. No back pain. No neck pain. No rashes. She is anxious. PHYSICAL EXAMINATION: GENERAL: Not well appearing, very toxic, uncomfortable; alert and oriented x3; 312 glucose. VITAL SIGNS: She has a 98 temperature, 123 pulse, 18 respiratory rate, and 146/85 blood pressure, and 100% O2 saturation. HEENT: Head is atraumatic and normocephalic. Extraocular muscles intact. Pupil reactive to light. Throat is dry. NECK: Supple. HEART: Regular rate; quite tachycardiac. LUNGS: Decreased breath sounds, clear that I could tell. ABDOMEN: Mildly distended, tender all over, decreased bowel sounds. No apparent guarding or rebound, just very tender to palpation. EXTREMITIES: No edema. NEUROLOGIC: GCS is 15. Cranial nerves II through XII grossly intact. SKIN: That I could tell is intact. No apparent rashes or ulcers appreciated. PSYCHIATRIC: Alert and oriented x3. She had multiple issues in the ER. Her urine with many epithelial, moderate bacteria, it appears she might be having an UTI. LABORATORY DATA: She has a 145 sodium, potassium 4.3, BUN 20, creatinine 1, GFR is greater than 60, sugar is 196, and calcium is 8.7. White count 60.8 and a high hemoglobin 10.8, hematocrit 33.9, and platelets of 423. CAT scan of abdomen and pelvis is pending. Chest x-ray is pending. PLAN: She is going to have consults with Endocrinology and Infectious Disease. She is already on morphine for pain and Rocephin, and she is in the Intensive Care Unit in [facility], watching her very closely and this was done last night, Monday night in the emergency room. David Theodore DO MTDD
--- NOTE | 2019-03-14 14:11 | PN ---
DATE: 03/14/2019 SUBJECTIVE: I saw her this morning in the intensive care unit. She is doing a lot better than last night. The Zofran is definitely helping her with the nauseousness. She has not thrown up in a little while. The pain meds are helping. She is on IV fluids, much better spirits. PHYSICAL EXAMINATION: VITAL SIGNS: She has a 98 temperature, pulse is total of 130s, blood pressure 110/68, respiratory rate 18, 98% O2 sat on room air. HEENT: Head is atraumatic, normocephalic. HEART: Regular rate. LUNGS: Decreased breath sounds, but clear. ABDOMEN: Softer nontender. No nausea or vomiting. EXTREMITIES: No edema. LABORATORY DATA: Labs are pending from this morning. Chemistry though 145 sodium, potassium 4.3, BUN is 20, creatinine 1, GFR is greater than 60, sugar is 196, calcium was 8.7. ASSESSMENT AND PLAN: She is being seen by Infectious Disease. Her heart rate is still very tachycardic. She is on metoprolol, I am going to increase the 25 b.i.d. to 50 b.i.d. and hopefully that will help. I will continue with aggressive treatment and care. I will consult Cardiology and she is in the intensive care unit with DKA. CAT scan of the abdomen and pelvis is pending. David Theodore DO
--- NOTE | 2019-03-14 15:28 | CON ---
DATE OF CONSULTATION: 03/14/2019 CARDIOLOGY CONSULTATION HISTORY: The patient is a 44-year-old woman with documented gastroparesis, who presents with diabetes out of control with mild acidosis. The patient is in the unit. I was asked to see her because of her tachycardia. The patient has severe gastroparesis and is in constant pain from her abdomen, in which she is receiving Botox injections into her system, treated at [facility]. During her episodes of pain, the patient is tachycardic. She denies chest pain. Previous workup of her heart has shown no issues related to related to her heart. Her last echocardiogram was performed several years ago, in which her ejection fraction was noted to be normal. Currently, the patient is having abdominal pain and is on an insulin drip. SOCIAL HISTORY: The patient does not smoke. REVIEW OF SYSTEMS: Review of systems is all concentrated on her abdominal pain. PHYSICAL EXAMINATION: VITAL SIGNS: Her blood pressure is stable, heart rate is in the 120s, blood pressure 124/80. She is in sinus tachycardia, 120. NECK: Negative JVD. LUNGS: Without rales. CARDIAC: Heart rate S1, S2. EXTREMITIES: Without edema. EKG shows sinus tachycardia. BUN and creatinine today are normal. Anion gap is 18, glucose is 196. The hemoglobin is 10.8. White count is 16. IMPRESSION: 1. Sinus tachycardia secondary to her pain and her other comorbidities. 2. Early diabetic ketoacidosis. 3. Diabetes out of control. 4. Severe gastroparesis. 5. Anemia. 6. History of hypertension. PLAN: Given these findings, her tachycardia treatment should be directed at controlling her pain. We will obtain an echocardiogram to evaluate her LV function, which has not been done in a while. Jim Field MD
[2019-03-14 15:49] LABS: BLOOD UREA NITROGEN 19 mg/dL (7-21); CALCIUM 8.8 mg/dL (8.4-10.5); GFR NON-AFRICAN AMERICAN > 60
--- NOTE | 2019-03-14 18:22 | CARD ---
APPROVED REPORT Date of service: 03/14/2019 EXAM: Two-dimensional and M-mode echocardiogram with Doppler and color Doppler. INDICATION TACHYCARDIA 2D DIMENSIONS Left Atrium (2D)4.0 (1.6-4.0cm)IVSd0.8 (0.7-1.1cm) LVDd4.1 (3.9-5.9cm)PWd1.0 (0.7-1.1cm) LVDs2.7 (2.5-4.0cm)FS (%) 34.1 % LVEF (%)63.5 (>50%) M-Mode DIMENSIONS Aortic Root2.70 (2.2-3.7cm)Aortic Cusp Exc.1.80 (1.5-2.0cm) Aortic Valve AoV Peak Rqwkfnbc226.0cm/Regina Peak GR.8mmHg Mitral Valve MV E Jtvaonrr87.3cm/sMV A Krkbzcjy962.0cm/sE/A ratio0.7 TDI Lateral E' Peak V11.60cm/sMedial E' Peak V10.10cm/sE/Lateral E'7.2 E/Medial E'8.2 Pulmonary Valve PV Peak Dnrgbmir203.0cm/sPV Peak Grad.9mmHg Tricuspid Valve TR Peak Ejrxigha459tv/sRAP [id number] Peak Gr.9mmHg [id number] LEFT VENTRICLE The left ventricle is normal size. There is normal left ventricular wall thickness. The left ventricular function is normal. The left ventricular ejection fraction is within the normal range. There is normal LV segmental wall motion. Transmitral Doppler flow pattern is Grade I-abnormal relaxation pattern. RIGHT VENTRICLE The right ventricle is normal size. There is normal right ventricular wall thickness. The right ventricular systolic function is normal. ATRIA The left atrium size is normal. The right atrium size is normal. AORTIC VALVE The aortic valve is normal in structure. No aortic regurgitation is present. There is no aortic valvular stenosis. MITRAL VALVE The mitral valve is normal in structure. There is no mitral valve regurgitation noted. There is no mitral valve stenosis. TRICUSPID VALVE The tricuspid valve is normal in structure. There is trace tricuspid regurgitation. PULMONIC VALVE The pulmonary valve is normal in structure. There is mild pulmonic valvular regurgitation. GREAT VESSELS The aortic root is normal in size. The IVC is normal in size and collapses >50% with inspiration. <Conclusion> The left ventricle is normal size. There is normal left ventricular wall thickness. The left ventricular function is normal. The left ventricular ejection fraction is within the normal range. There is normal LV segmental wall motion. Transmitral Doppler flow pattern is Grade I-abnormal relaxation pattern.
[2019-03-14 21:10] LABS: INR 1.11; PARTIAL THROMBOPLASTIN TIME 39.7 Seconds (26.9-38.3); PROTHROMBIN TIME 12.3 SECONDS (9.4-12.5)
[2019-03-14 21:12] LABS: BLOOD UREA NITROGEN 17 mg/dL (7-21); CALCIUM 8.8 mg/dL (8.4-10.5); GFR NON-AFRICAN AMERICAN > 60
[2019-03-14] MEDS: Insulin Reg-HIGH-Coverage SC SCH (21:15)
--- NOTE | 2019-03-14 21:53 | CON ---
DATE OF CONSULTATION: 03/14/2019 ENDOCRINOLOGY CONSULTATION LOCATION: CCU 129, room 5. HISTORY OF PRESENT ILLNESS: This is a 44-year-old female with known history of type 1 insulin-dependent diabetes, presenting here with generalized body weakness and supervening marked hyperglycemic accelerations and was found to be in diabetic ketoacidosis and dehydration and started on an insulin drip infusion as given overnight. She is being referred now for further diabetic evaluation and management. PAST MEDICAL HISTORY: As mentioned above, history of type 1 insulin-dependent diabetes, diagnosed at age 17 and has been fairly compliant with an insulin regimen till the present time. However, there is frequent insulin drug omission because of episodic nausea, dyspepsia and vomiting episodes with underlying known history of diabetic gastroparesis with previous Botox injection therapy as given. History of diabetic retinopathy, polyneuropathy and early nephropathy with proteinuria as noted. History of diabetic gastroparesis as mentioned with frequent hospital readmissions for exacerbation of severe intractable vomiting and abdominal pain. History of peripheral arterial disease and vasculopathy with a previous admission for left foot osteomyelitis and frequent foot ulcers as noted. FAMILY HISTORY: Positive for hypertension and diabetes. SOCIAL HISTORY: The patient has supportive family. No known substance use. REVIEW OF SYSTEMS: As mentioned above, admits to generalized body weakness with episodic bouts of dizziness and lightheadedness, worse on the day of admission. Also admits to visual blurring with bifrontal headaches as noted. No chest pains or palpitations or PND. Her oral intake has been variable with nausea, dyspepsia and vomiting. Also admits to upper abdominal pain, vague and diffuse in nature. Also admits to marked polyuria, nocturia, polydipsia over the last 2 days or so prior to admission. PHYSICAL EXAMINATION: GENERAL: An average built female, in no apparent distress. VITAL SIGNS: Blood pressure of 150/90, pulse of 100 beats per minute, regular, temperature 99, and respirations 20. Height 5 feet 9 inches. Weight is 186 pounds. HEENT: Head normocephalic. Eye anicteric with pink conjunctivae. Fundoscopy not possible at this time. Ears, nose and throat, otherwise normal. NECK: Supple. Thyroid gland is normal sized. No carotid bruits or cervical adenopathy. CARDIOPULMONARY: Some adynamic precordium. S1, S2 are rapid and regular. LUNGS: Clear to auscultation. ABDOMEN: Flat, soft with positive bowel sounds. EXTREMITIES: No peripheral edema. Pulses are +2 bilaterally. LABORATORY DATA: Her chemistry, BUN of 20, sodium 146, potassium 4.4, chloride 117, CO2 is 15, glucose 207 and creatinine 0.9. Her glucose levels today have ranged from 170 to 188 mg/dL. ASSESSMENT: This is a 44-year-old female with uncontrolled and decompensated type 1 insulin-dependent diabetes, presenting here with nausea, dyspepsia and intractable vomiting and was evaluated to be in diabetic ketoacidosis and dehydration with prerenal azotemia and spurious hyponatremia. She also has recurrent diabetic gastroparesis, which is an autonomic neuropathy, quite recorded type 1 diabetic patients. Moreover, she has diabetic microvascular complications of retinopathy, polyneuropathy, and early nephropathy with overt proteinuria. She also has peripheral arterial disease and vasculopathy with frequent lower extremity neuropathic ulcerations as noted and with a prior history of left foot osteomyelitis. PLAN OF MANAGEMENT: We will concur with the present intensive insulin therapy using an insulin drip infusion as currently ongoing at this time. As her anion gap closes with improvement of the CO2 to at least above 18-20 then we can safely stop the insulin drip infusion as indicated. We will switch her over to a low dose basal and bolus insulin drug combination as her oral intake improves accordingly. We will also continue the vigorous IV hydration with normal saline infusion as ordered and obtain serial chemistries accordingly. We will obtain a hemoglobin A1c to confirm her prior glycemic control and baseline thyroid function studies will be ordered. We will follow and advise accordingly. Tamara Campo MD
--- NOTE | 2019-03-14 23:15 | CON ---
DATE: 03/14/2019 LOCATION: The patient is seen in ICU 129, bed 5. CHIEF COMPLAINT: Weakness. HISTORY OF PRESENT ILLNESS: This is a 44-year-old female with diabetes mellitus, diabetic ketoacidosis, gastroparesis, nephropathy, hypertension, hyperlipidemia, esophagitis, and gastric ulcer, presented to emergency room complaining of weakness and palpitations. She states she has been experiencing palpitations with abdominal pain and vomiting and feeling weak. REVIEW OF SYSTEMS: Reveals no fevers. No chills. No chest pain, shortness of breath, diarrhea, or urinary symptoms. No headache. PAST MEDICAL HISTORY: Significant for diabetes mellitus, diabetic ketoacidosis, gastroparesis, nephropathy, hypertension, hyperlipidemia, esophagitis, gastritis, and gastric ulcer. PAST SURGICAL HISTORY: Significant for diabetic foot surgery. ALLERGIES: METOCLOPRAMIDE. MEDICATIONS AT HOME: Reveals Norvasc, metoprolol, lorazepam, Carafate, insulin, and Protonix. PHYSICAL EXAMINATION: GENERAL: The patient is seen in bed. VITAL SIGNS: Temperature of 98, heart rate of 110, respiratory rate of 18, and blood pressure of 140/80. HEENT: Unremarkable. NECK: Supple. LUNGS: Decreased breath sounds. HEART: Normal S1 and S2. ABDOMEN: Soft and nontender. LABORATORY DATA: Reveals white count of 16,800, hemoglobin of 10, and platelets of 423. Chemistry reveals BUN of 19 and creatinine of 0.9. Troponin is noted. Urinalysis is noted, bacteria is moderate, and WBC 10-15. Chest x-ray, no active disease. ASSESSMENT AND PLAN: This is a 44-year-old female with history of diabetes, diabetic ketoacidosis, gastroparesis, admitted with leukocytosis, tachycardia, and abdominal discomfort. Systemic inflammatory response syndrome with diabetic ketoacidosis. We will treat the patient with ceftriaxone, pending blood culture, urine culture, pancultures, WBCs. The patient with diabetic ketoacidosis and gastroparesis. We will follow with you. Clarke Velazco MD
[2019-03-15] MEDS: Morphine 2 mg/ml ISec IVP PRN ×4 (00:34→22:06)
[2019-03-15 07:18] LABS: BASO # 0.01 {null, K/mm3} (0.0-2.0); BASO % 0.1 % (0.0-3.0); HEMOGLOBIN 10.3 g/dL (12.0-16.0); LYMPH # 1.4 (1.2-3.4); MEAN CELL VOLUME 79.3 fl (80.0-105.0); MEAN CORPUSCULAR HEMOGLOBIN 24.8 pg (25.0-35.0); MEAN CORPUSCULAR HGB CONC 31.2 g/dl (31.0-37.0); MONO # 1.2 (0.1-0.6); RBC 4.16 {null, 10^6/uL} (3.5-6.1); WHITE BLOOD COUNT 17.1 {null, 10^3/uL} (4.5-11.0)
[2019-03-15 07:40] LABS: ALB/GLOB RATIO 1.1 (1.1-1.8); ALT/SGPT 22 U/L (7-56); AST/SGOT 35 U/L (14-36); BLOOD UREA NITROGEN 14 mg/dL (7-21); GFR NON-AFRICAN AMERICAN > 60
[2019-03-15] MEDS: Insulin Reg-HIGH-Coverage SC SCH ×2 (08:28→11:30)
[2019-03-15] MEDS: Enoxaparin 40 mg Syringe SC SCH (09:40)
[2019-03-15] MEDS: cefTRIAXone 1 gm 1 GM/100 ML BAG IVPB SCH (09:41)
--- NOTE | 2019-03-15 10:54 | CP.PCM.PN ---
Subjective - Date & Time of Evaluation Date of Evaluation: 03/15/19 Time of Evaluation: 10:54 - Subjective Subjective: PGY-[address] aCmpo, Endo Pt has increased appetite, no more nausea , (+) tiredness. Dad by bedside. no other acute complaint Objective - Vital Signs/Intake and Output Vital Signs (last 24 hours): Temp Pulse Resp BP Pulse Ox 98.3 F 115 H 20 158/83 H 95 03/15/19 06:00 03/15/19 09:40 03/15/19 06:00 03/15/19 09:40 03/15/19 06:00 Intake and Output: 03/15/19 03/15/19 06:59 18:59 Intake Total 60 Balance 60 - Medications Medications: Current Medications Amlodipine Besylate (Norvasc) 5 mg PO DAILY [facility] Last Admin: 03/15/19 09:40 Dose: 5 mg Enoxaparin Sodium (Lovenox) 40 mg SC DAILY [facility]; Protocol Last Admin: 03/15/19 09:40 Dose: 40 mg Ceftriaxone Sodium (Rocephin 1 Gram Ivpb) 1 gm in 100 mls @ 100 mls/hr IVPB DAILY [facility]; Protocol Stop: 03/21/19 10:01 Last Admin: 03/15/19 09:41 Dose: 100 mls/hr Insulin Human Regular (Humulin R High) 0 units SC ACHS [facility]; Protocol Last Admin: 03/15/19 08:28 Dose: 7 units Lorazepam (Ativan) 0.5 mg PO Q12H PRN; Protocol PRN Reason: Anxiety Last Admin: 03/15/19 08:45 Dose: 0.5 mg Metoprolol Tartrate (Lopressor) 50 mg PO BID [facility] Last Admin: 03/15/19 09:38 Dose: 50 mg Morphine Sulfate (Morphine) 2 mg IVP Q4H PRN PRN Reason: Pain, moderate (4-7) Last Admin: 03/15/19 05:07 Dose: 2 mg Ondansetron HCl (Zofran Inj) 4 mg IVP Q4H PRN PRN Reason: Nausea/Vomiting Last Admin: 03/14/19 22:44 Dose: 4 mg Pantoprazole Sodium (Protonix Inj) 40 mg IVP DAILY [facility] Last Admin: 03/15/19 09:41 Dose: 40 mg - Labs Labs: 03/15/19 07:00 03/15/19 07:00 PT 12.3 SECONDS (9.4-12.5) 03/14/19 20:57 INR 1.11 03/14/19 20:57 APTT 39.7 Seconds (26.9-38.3) H 03/14/19 20:57 - Constitutional Appears: No Acute Distress - Head Exam Head Exam: ATRAUMATIC, NORMAL INSPECTION, NORMOCEPHALIC - Eye Exam Eye Exam: EOMI, Normal appearance, PERRL. absent: Scleral icterus Pupil Exam: NORMAL ACCOMODATION - ENT Exam ENT Exam: Mucous Membranes Moist - Neck Exam Additional comments: supple - Respiratory Exam Respiratory Exam: Clear to Ausculation Bilateral, NORMAL BREATHING PATTERN. absent: Rales, Rhonchi, Wheezes - Cardiovascular Exam Cardiovascular Exam: REGULAR RHYTHM, +S1, +S2 - GI/Abdominal Exam GI & Abdominal Exam: Soft, Normal Bowel Sounds. absent: Tenderness Additional comments: no suprapubic tenderess - Back Exam Back Exam: absent: CVA tenderness (L), CVA tenderness (R) - Neurological Exam Neurological Exam: Alert, Awake, Oriented x3 - Psychiatric Exam Psychiatric exam: Normal Affect, Normal Mood - Skin Skin Exam: Dry, Warm Assessment and Plan - Assessment and Plan (Free Text) Plan: Ms Mancini, 44F, IDDM-1 admitted to ICU for DKA and dehyration, resolved, now downgrade to med/surg IDDM-1, very sensitive to insulin, labile sugar DKA - resolved likely precipitate from recent cold vs Gram Neg Adis UTI on ceftriaxone - advance to soft diet - standing humalog 6 actid, levemir 12, isss starting at BG>300 - (Home: humalog 5 ACTID and Basaglar 7 HS) s/r/d/w Dr Campo
--- NOTE | 2019-03-15 12:37 | PN ---
DATE: 03/15/2019 SUBJECTIVE: I saw her in bed. She is kind of moving all over the bed, waving her arms all over the place, very much agitated in pain. Her eyes are closed. She did not get anything this morning. She has Ativan, which I hopefully will give her right now, insulin coverage, metoprolol, Lovenox, morphine for pain, Norvasc, Protonix, Rocephin and Zofran. PHYSICAL EXAMINATION: VITAL SIGNS: She has 98.3 temperature, pulse of 96 up to 115, 158/82 blood pressure, 20 respiratory rate, 95% O2 sat on room air. HEENT: Head is atraumatic, normocephalic. HEART: Regular rate. LUNGS: Decreased breath sounds. ABDOMEN: Soft. EXTREMITIES: No edema. She is definitely agitated and very bizarre motions of her body this morning, I called in Psychiatry to get their opinion. LABORATORY DATA: She has a 142 sodium, potassium 4, BUN 14, creatinine 0.8, GFR is greater than 60, sugar 299 and 297, I will tighten up her diabetes, calcium is 9, total bilirubin is 0.8. AST is 35, ALT is 22, alkaline phosphatase 109, total protein is 7.7. Urine had moderate bacteria. She has a 17.1 white count, it was 16.8 yesterday, went up to 17.1 and she is on Rocephin. Hemoglobin is 10.3, hematocrit 32, platelets of 392. All of the micro is negative. The white count is still elevated. ASSESSMENT AND PLAN: She is being seen by Infectious Disease, Cardiology, and Endocrinology. She just does not examine well and look well. She is on liquid diet. See what Psychiatry has to add to the picture. Blood sugars are still quite high. We will see what Endocrinology has to say. She is on the coverage right now and 20 units at nighttime. David Theodore DO
--- NOTE | 2019-03-15 14:23 | PN ---
DATE: 03/15/2019 LOCATION: Room 361. SUBJECTIVE: This is a 44-year-old female with recent uncontrolled type 1 insulin-dependent diabetes, now being followed closely for metabolic management. Her glycemic levels are fluctuating as expected with the recent hyperglycemic accelerations following the discontinuation of the insulin drip infusion as noted. She received vigorous IV hydration and intensive insulin therapy in the ICU as noted. She has been advanced now to a liquid diet and the latest glucose values today have ranged from 177 to 297 mg/dL. Her chemistries showed a BUN of 14, sodium 142, potassium 4, chloride 111, CO2 of 21, glucose 299 and creatinine 0.8. So, at this time, we will initiate a more physiologic basal and bolus insulin drug combination to optimize metabolic control. We will add Humalog given as 6 units t.i.d. before meals to start today as ordered. We will add basal insulin given as Levemir at 12 units subcu at bedtime daily to start tonight. We will modify the coverage scale to obviate hypoglycemia and detailed orders have been given, using a very low-dose algorithm of Humalog insulin as ordered. We will continue the IV hydration as ordered and obtain serial chemistries accordingly. Tamara Campo MD
--- NOTE | 2019-03-15 16:03 | PN ---
DATE: 03/15/[address] Jim Field. SUBJECTIVE: The patient denies any chest pain. She is still experiencing nausea and vomiting. PHYSICAL EXAMINATION: VITAL SIGNS: Blood pressure 158/83, heart rate 115, temperature 98.3, respirations 20. HEENT: Normocephalic. CHEST: Clear. HEART: S1 and S2 regular. EXTREMITIES: No edema. LABORATORY DATA: Today's hemoglobin and hematocrit 10.3 and 33, white count 17.1, platelet count 392,000. Today's SMA-7 is within normal limits, except for glucose of 299 and chloride of 111. Yesterday's EKG revealed sinus tachycardia with possible left atrial enlargement, poor R-wave progression. Echocardiographic study done yesterday revealed normal left atrial size, wall thickness, and systolic function with grade 1 abnormal relaxation pattern. ASSESSMENT: 1. Sinus tachycardia, consider underlying dehydration. 2. Uncontrolled diabetes mellitus. 3. Severe gastroparesis. 4. Hypertension. 5. Mild pulmonary hypertension. RECOMMENDATIONS: Continue subcutaneous Lovenox 40 mg daily, Lopressor 50 mg twice a day, Norvasc 5 mg once a day, IV Rocephin 1 g daily, Protonix 40 mg intravenously daily. Please consider resuming intravenous hydration with normal saline at 100 mL an hour. Roc Rees MD
[2019-03-15] MEDS: Insulin Lispro (humaLOG) LOW Coverage SC SCH ×2 (17:10→22:54)
[2019-03-15] MEDS: Insulin Lispro 1 UNITS/0.01 ML SC SCH (17:15)
[2019-03-15] MEDS: Insulin Detemir 100 units/ml Vial (Levemir) SC SCH (22:03)
--- NOTE | 2019-03-16 00:14 | PN ---
DATE: 03/15/2019 SUBJECTIVE: The patient is seen in bed, in no acute distress, nontoxic, and was seen earlier today in room 361, bed 1. The patient is complaining of unable to sleep. OBJECTIVE: VITAL SIGNS: Temperature is 98, blood pressure is 150/80, respiratory rate is 20, and heart rate of 115. HEENT: Unremarkable. NECK: Supple. LUNGS: Decreased breath sounds. HEART: Normal S1 and S2. ABDOMEN: Soft. LABORATORY EXAMINATION: Reveals a white count of 17,000, hemoglobin of 10, platelets of 392, and 91% granulocytosis. BUN of 14 and creatinine of 0.8. Urinalysis is noted. Microbiology reveals Gram-negative reji in the urine and blood cultures are negative. REVIEW OF ORDERS: Reveal the patient to be on ceftriaxone. ASSESSMENT AND PLAN: This is a 44-year-old female with diabetes, diabetic ketoacidosis, gastroparesis, nephropathy, hypertension, admitted with sepsis with Gram-negative reji in the urine, diabetic ketoacidosis, currently on ceftriaxone; further questioned the patient regarding her symptomatology at this time and check on the identification of Gram-negative reji in the urine. Clarke Velazco MD
[2019-03-16] MEDS ORDERED: Insulin Regular 1 UNITS/0.01 ML ML SC ONE (02:35)
[2019-03-16] MEDS: Morphine 2 mg/ml ISec IVP PRN ×6 (02:46→22:45)
[2019-03-16 08:04] LABS: MEAN CELL VOLUME 79.3 fl (80.0-105.0); MEAN CORPUSCULAR HEMOGLOBIN 25.1 pg (25.0-35.0); MEAN CORPUSCULAR HGB CONC 31.6 g/dl (31.0-37.0); MEAN PLATELET VOLUME 9.5 fl (7.0-11.0); RBC 4.39 {null, 10^6/uL} (3.5-6.1); RED CELL DISTRIBUTION WIDTH 15.9 % (11.5-14.5); WHITE BLOOD COUNT 10.8 {null, 10^3/uL} (4.5-11.0)
--- NOTE | 2019-03-16 08:22 | PN ---
DATE: 03/16/2019 ENDOCRINOLOGY FOLLOWUP NOTE In room 360. SUBJECTIVE: This is a 70-year-old male with recent uncontrolled type 2 insulin-requiring diabetes with marked hyperglycemic accelerations and is now being followed closely for metabolic management. His glycemic levels are fluctuating, but improved and the glucose values overnight have ranged from 116-141 and 306 mg/dL. His chemistry showed a BUN of 14, sodium 142, potassium 4.0, chloride 111, CO2 is 21, glucose is 299 and creatinine is 0.8. So at this time, we will continue the same basal and bolus insulin regimen to allow for full dose equilibration. We will continue her Humalog given as 6 units three times a day before meals to start today as ordered. We will continue also the basal insulin given as Levemir at 12 units subcu at bedtime daily as given. We will titrate incrementally as indicated to optimize metabolic control. Just to go back to the assessment this is for this is a discharge visit. ASSESSMENT: This is a 70-year-old male with uncontrolled type 2 insulin-requiring diabetes with marked hyperglycemic accelerations dehydration and prerenal azotemia as noted. Tamara Campo MD
[2019-03-16 08:28] LABS: ALB/GLOB RATIO 1.1 (1.1-1.8); ALBUMIN 4.1 g/dL (3.0-4.8); ALT/SGPT 30 U/L (7-56); AST/SGOT 44 U/L (14-36); BLOOD UREA NITROGEN 14 mg/dL (7-21); CALCIUM 8.7 mg/dL (8.4-10.5); GFR NON-AFRICAN AMERICAN > 60
[2019-03-16] MEDS ORDERED: Magnesium Hydroxide Susp 30 ml UD PO ONE (08:39)
[2019-03-16] MEDS ORDERED: Potassium Chloride 20 mEq ER Tab PO ONE (08:40)
[2019-03-16] MEDS: Enoxaparin 40 mg Syringe SC SCH (09:05)
[2019-03-16] MEDS: cefTRIAXone 1 gm 1 GM/100 ML BAG IVPB SCH (09:05)
[2019-03-16] MEDS: Insulin Lispro 1 UNITS/0.01 ML SC SCH ×3 (09:06→18:06)
[2019-03-16] MEDS: Insulin Lispro (humaLOG) LOW Coverage SC SCH ×3 (09:07→15:51)
--- NOTE | 2019-03-16 09:51 | CP.PCM.PCO ---
Addendum Addendum: Patient defers on a psychiatric evaluation at this time requesting this provider return later. I will f/u with her again in the AM 03/17/19 03/16/19 09:50
--- NOTE | 2019-03-16 10:44 | CP.PCM.CON ---
<Zion Conner - Last Filed: 03/16/19 10:44> History of Present Illness - History of Present Illness History of Present Illness: PGY-4 GI Fellow Consult Note Mrs. Mancini is a 43 yo BF with DM1 c/b multiple admission for DKA with complications of gastroparesis, retinopathy and nephropathy presenting with abdominal pain with DKA on 03/14/19. She states that she had decreased appetite several days prior to admission; therefore, she states she did not take her insulin as prescribed. Subsequently, she developed abdominal pain, nausea or vomiting with nonbloody nonbilious emesis and DKA. She reports a "bandlike" indescribable pain across her upper abdomen that has been mostly constant since her blood sugars became out of control. She states this is the tubercle pain for her when she is in DKA. She denied any weight loss, dysphasia, melena nor hematochezia. She states her last bowel movement was 4-5 days ago due to her not taking much by mouth recently. She is currently on a carbohydrate controlled diet she states she is keeping some of it down. 12 point ROS negative other than states above MHx: See above plus, HTN, HLD SurgHx: EGD 12/16/16 with LA Grade C esophagitis, gastric + duodenal ulcers (FC III both, Gastric Bx negative for Hpylori) Meds: Reviewed in MAR, lispro, detemire, sucralfate FamHx: DM, HTN SocHx: DeniesEtOH, illcits and tobacco All: Metoclopramide Past Patient History - Infectious Disease Hx of Infectious Diseases: None - Tetanus Immunizations Tetanus Immunization: Unknown - Past Social History Smoking Status: Never Smoked - CARDIAC Hx Cardiac Disorders: Yes Hx Hypertension: Yes - PULMONARY Hx Respiratory Disorders: No - NEUROLOGICAL Hx Neurological Disorder: Yes (NEUROPATHY) - HEENT Hx HEENT Problems: Yes Other/Comment: wears glasses-nearsighted - RENAL Hx Chronic Kidney Disease: No - ENDOCRINE/METABOLIC Hx Diabetes Mellitus Type 1: Yes (hx DKA) - HEMATOLOGICAL/ONCOLOGICAL Hx Anemia: Yes - INTEGUMENTARY Hx Dermatological Problems: Yes (hx diabetic foot ulcers) - MUSCULOSKELETAL/RHEUMATOLOGICAL Hx Falls: No - GASTROINTESTINAL Hx Gastrointestinal Disorders: Yes (gastritis,gastroparesis) Hx Gastroesophageal Reflux: Yes - GENITOURINARY/GYNECOLOGICAL Hx Urinary Tract Infection: Yes - PSYCHIATRIC Hx Psychophysiologic Disorder: Yes Hx Anxiety: Yes Hx Substance Use: No - SURGICAL HISTORY Hx Cardiac Catheterization: No Other/Comment: endoscopy with BOTOX - ANESTHESIA Hx Anesthesia: No Hx Anesthesia Reactions: No Hx Malignant Hyperthermia: No Meds Allergies/Adverse Reactions: Allergies Allergy/AdvReac Type Severity Reaction Status Date / Time metoclopramide HCl AdvReac VOMITING Verified 05/04/18 14:22 [From Reglan] - Medications Medications: Current Medications Amlodipine Besylate (Norvasc) 5 mg PO DAILY [facility] Last Admin: 03/16/19 09:05 Dose: 5 mg Enoxaparin Sodium (Lovenox) 40 mg SC DAILY [facility]; Protocol Last Admin: 03/16/19 09:05 Dose: 40 mg Ceftriaxone Sodium (Rocephin 1 Gram Ivpb) 1 gm in 100 mls @ 100 mls/hr IVPB DAILY [facility]; Protocol Stop: 03/21/19 10:01 Last Admin: 03/16/19 09:05 Dose: 100 mls/hr Insulin Detemir (Levemir) 12 unit SC HS [facility] Last Admin: 03/15/19 22:03 Dose: 12 units Insulin Human Lispro (Humalog) 6 units SC ACTID [facility] Last Admin: 03/16/19 09:06 Dose: 6 units Insulin Human Lispro (Humalog Low) 0 units SC ACHS [facility]; Protocol Last Admin: 03/16/19 09:07 Dose: 2 unit Lorazepam (Ativan) 0.5 mg PO Q12H PRN; Protocol PRN Reason: Anxiety Last Admin: 03/15/19 08:45 Dose: 0.5 mg Metoprolol Tartrate (Lopressor) 50 mg PO BID [facility] Last Admin: 03/16/19 09:04 Dose: 50 mg Morphine Sulfate (Morphine) 2 mg IVP Q4H PRN PRN Reason: Pain, moderate (4-7) Last Admin: 03/16/19 10:38 Dose: 2 mg Ondansetron HCl (Zofran Inj) 4 mg IVP Q4H PRN PRN Reason: Nausea/Vomiting Last Admin: 03/16/19 10:39 Dose: 4 mg Pantoprazole Sodium (Protonix Inj) 40 mg IVP DAILY [facility] Last Admin: 03/16/19 09:09 Dose: 40 mg Physical Exam - Constitutional Appears: Well Additional comments: moving about restlessly in bed - Head Exam Head Exam: ATRAUMATIC, NORMAL INSPECTION - Eye Exam Eye Exam: EOMI. absent: Scleral icterus - ENT Exam ENT Exam: Mucous Membranes Moist. absent: Mucous Membranes Dry - Respiratory Exam Respiratory Exam: NORMAL BREATHING PATTERN. absent: Accessory Muscle Use - Cardiovascular Exam Cardiovascular Exam: Tachycardia, REGULAR RHYTHM - GI/Abdominal Exam GI & Abdominal Exam: Normal Bowel Sounds, Soft, Tenderness (tender to palpation upper abdomen without guarding). absent: Bruit, Diminished Bowel Sounds, Distended, Firm, Guarding, Hernia, Mass, Organomegaly, Pulsatile Mass, Rigid - Extremities Exam Extremities exam: Positive for: normal inspection. Negative for: pedal edema - Neurological Exam Neurological exam: Alert, Oriented x3 - Psychiatric Exam Psychiatric exam: Anxious, Normal Affect - Skin Skin Exam: Normal Color, Warm Results - Vital Signs Recent Vital Signs: Last Vital Signs Temp 98.3 F 03/15/19 06:00 Pulse 63 03/16/19 09:05 Resp 20 03/16/19 06:00 BP 154/85 H 03/16/19 09:05 Pulse Ox 97 03/16/19 06:00 - Labs Result Diagrams: 03/16/19 07:00 03/16/19 07:00 Labs: Laboratory Results - last 24 hr 03/15/19 03/15/19 03/15/19 11:41 15:50 21:02 WBC RBC Hgb Hct MCV MCH MCHC RDW Plt Count MPV Sodium Potassium Chloride Carbon Dioxide Anion Gap BUN Creatinine Est GFR ( Amer) Est GFR (Non-Af Amer) POC Glucose (mg/dL) 287 H 141 H 116 H Random Glucose Calcium Total Bilirubin AST ALT Alkaline Phosphatase Total Protein Albumin Globulin Albumin/Globulin Ratio 03/16/19 03/16/19 03/16/19 02:28 07:00 07:00 WBC 10.8 D RBC 4.39 Hgb 11.0 L Hct 34.8 L MCV 79.3 L MCH 25.1 MCHC 31.6 RDW 15.9 H Plt Count 349 MPV 9.5 Sodium 139 Potassium 3.4 L Chloride 105 Carbon Dioxide 25 Anion Gap 13 BUN 14 Creatinine 0.8 Est GFR ( Amer) > 60 Est GFR (Non-Af Amer) > 60 POC Glucose (mg/dL) 306 H Random Glucose 279 H Calcium 8.7 Total Bilirubin 0.7 AST 44 H D ALT 30 Alkaline Phosphatase 108 Total Protein 7.7 Albumin 4.1 Globulin 3.7 Albumin/Globulin Ratio 1.1 03/16/19 07:42 WBC RBC Hgb Hct MCV MCH MCHC RDW Plt Count MPV Sodium Potassium Chloride Carbon Dioxide Anion Gap BUN Creatinine Est GFR ( Amer) Est GFR (Non-Af Amer) POC Glucose (mg/dL) 278 H Random Glucose Calcium Total Bilirubin AST ALT Alkaline Phosphatase Total Protein Albumin Globulin Albumin/Globulin Ratio Assessment & Plan - Assessment and Plan (Free Text) Assessment: 44 yo BF with DM1 c/b gastroparesis presenting with DKA and N/V # Abdominal pain, Nausea and Vomiting: Likely multifactorial from DKA and known gastroparesis. No signs of obstruction on CT and w/o acute findings. Last EGD Nov 2016 with LA C Esophagitis, gastric and duodenal ulcers Bx negative for Hpylori, dysplasia/metaplasia). Plan: - Strict glycemic control here in acute setting as well as supervisor intermediates outpatient management - Symptomatic trt with ondansetron - Can trial erythromycin as inpatient, monitor QTC - Small, frequent meals with Carb control - Minimize or avoid narcotics due to GI side effects Pt discussed with Dr. Wong; please see attestation for further recs/changes <Maxime Wong Y - Last Filed: 03/16/19 14:29> Meds - Medications Medications: Current Medications Amlodipine Besylate (Norvasc) 5 mg PO DAILY [facility] Last Admin: 03/16/19 09:05 Dose: 5 mg Enoxaparin Sodium (Lovenox) 40 mg SC DAILY [facility]; Protocol Last Admin: 03/16/19 09:05 Dose: 40 mg Ceftriaxone Sodium (Rocephin 1 Gram Ivpb) 1 gm in 100 mls @ 100 mls/hr IVPB DAILY [facility]; Protocol Stop: 03/21/19 10:01 Last Admin: 03/16/19 09:05 Dose: 100 mls/hr Sodium Chloride (Sodium Chloride 0.45%) 1,000 mls @ 60 mls/hr IV .[id number] ONE Stop: 03/17/19 05:39 Last Admin: 03/16/19 13:58 Dose: 60 mls/hr Insulin Detemir (Levemir) 12 unit SC [facility] Last Admin: 03/15/19 22:03 Dose: 12 units Insulin Human Lispro (Humalog) 6 units SC ACTID [facility] Last Admin: 03/16/19 12:57 Dose: 6 units Insulin Human Lispro (Humalog Low) 0 units SC ACHS [facility]; Protocol Last Admin: 03/16/19 12:58 Dose: 4 unit Lorazepam (Ativan) 0.5 mg PO Q12H PRN; Protocol PRN Reason: Anxiety Last Admin: 03/15/19 08:45 Dose: 0.5 mg Metoprolol Tartrate (Lopressor) 50 mg PO BID [facility] Last Admin: 03/16/19 09:04 Dose: 50 mg Morphine Sulfate (Morphine) 2 mg IVP Q4H PRN PRN Reason: Pain, moderate (4-7) Last Admin: 03/16/19 10:38 Dose: 2 mg Ondansetron HCl (Zofran Inj) 4 mg IVP Q4H PRN PRN Reason: Nausea/Vomiting Last Admin: 03/16/19 10:39 Dose: 4 mg Pantoprazole Sodium (Protonix Inj) 40 mg IVP DAILY [facility] Last Admin: 03/16/19 09:09 Dose: 40 mg Results - Vital Signs Recent Vital Signs: Last Vital Signs Temp 98.3 F 03/15/19 06:00 Pulse 63 03/16/19 09:05 Resp 20 03/16/19 06:00 BP 154/85 H 03/16/19 09:05 Pulse Ox 97 03/16/19 06:00 - Labs Result Diagrams: 03/16/19 07:00 03/16/19 07:00 Labs: Laboratory Results - last 24 hr 03/15/19 03/15/19 03/16/19 15:50 21:02 02:28 WBC RBC Hgb Hct MCV MCH MCHC RDW Plt Count MPV Sodium Potassium Chloride Carbon Dioxide Anion Gap BUN Creatinine Est GFR ( Amer) Est GFR (Non-Af Amer) POC Glucose (mg/dL) 141 H 116 H 306 H Random Glucose Calcium Total Bilirubin AST ALT Alkaline Phosphatase Total Protein Albumin Globulin Albumin/Globulin Ratio 03/16/19 03/16/19 03/16/19 07:00 07:00 07:42 WBC 10.8 D RBC 4.39 Hgb 11.0 L Hct 34.8 L MCV 79.3 L MCH 25.1 MCHC 31.6 RDW 15.9 H Plt Count 349 MPV 9.5 Sodium 139 Potassium 3.4 L Chloride 105 Carbon Dioxide 25 Anion Gap 13 BUN 14 Creatinine 0.8 Est GFR ( Amer) > 60 Est GFR (Non-Af Amer) > 60 POC Glucose (mg/dL) 278 H Random Glucose 279 H Calcium 8.7 Total Bilirubin 0.7 AST 44 H D ALT 30 Alkaline Phosphatase 108 Total Protein 7.7 Albumin 4.1 Globulin 3.7 Albumin/Globulin Ratio 1.1 03/16/19 11:35 WBC RBC Hgb Hct MCV MCH MCHC RDW Plt Count MPV Sodium Potassium Chloride Carbon Dioxide Anion Gap BUN Creatinine Est GFR ( Amer) Est GFR (Non-Af Amer) POC Glucose (mg/dL) 318 H Random Glucose Calcium Total Bilirubin AST ALT Alkaline Phosphatase Total Protein Albumin Globulin Albumin/Globulin Ratio Attending/Attestation - Attestation I have personally seen and examined this patient.: Yes I have fully participated in the care of the patient.: Yes I have reviewed all pertinent clinical information: Yes Notes (Text): 03/16/19 14:23 I have seen and examined patient. Agree with above documentation with the following additions. In brief, this is a 44 year old female with history of DM who presents to hospital with complaint of abdominal pain and vomiting which started two days ago. Prior to this she was in usual state of health. She reports non-compliance with diabetic medication recently prior to onset of symptoms. She describes a b/l lower quadrant pain, 5/10 intenssity, associated with non-bloody emesis. She denies fever/chills, weight loss, rectal bleeding. She follows with a GI physician at [facility] who has treated her with endoscopic botox therapy in the past, last EGD in June 2018 as per patient. DM (uncontrolled) Abdominal pain, nausea, vomiting - gastroparesis UTI - Diabetic diet as tolerated, small frequent meals - Anti-emetic therapy PRN - Strict glycemic control - Continue with antibiotic therapy as per ID - Will continue to monitor patient clinical course
--- NOTE | 2019-03-16 11:44 | PN ---
DATE: 03/16/2019 SUBJECTIVE: She is not doing well this morning. She is very nauseous. She is also having constipation, given her some milk of magnesia called in GI. She is supposed to go for an upper endoscopy with Botox injections in her stomach. MEDICATIONS: She is on Ativan, Benadryl, insulin, Potassium replacement, Levemir, Lopressor, Lovenox, milk of magnesia, morphine, Norvasc, Protonix, Rocephin, Ultram, and Zofran. OBJECTIVE: GENERAL: She is very uncomfortable in bed, not eating well, in pain. VITAL SIGNS: Temperature 98.3, 105 pulse, 147/82 blood pressure, 20 respiratory rate, 95% O2 sat on room air. HEENT: Head is atraumatic, normocephalic. HEART: Regular rate. LUNGS: Decreased breath sounds, but clear. ABDOMEN: Mildly distended, tender, soft decreased bowel sounds. No guarding, no rebound. EXTREMITIES: No edema. She is not doing well, very uncomfortable. LABORATORY DATA: Sodium 139; potassium 3.4, replace potassium; BUN 14; creatinine 0.8; GFR is grater than 60. Blood sugars of 306, 279, and 278. I would like to talk to Endocrinology about tightening up the blood sugars. Calcium is 8.7, total bili is 0.7, AST is 44, ALT is 30, alk phos 108. INR is 1.11. White count is down to 10.8, it was as high as 17.1, this is the first time it came back to normal. Hemoglobin is 11, hematocrit 34.8, platelets of 349. Hopefully, this is a good sign. She had Escherichia coli in the urine culture. Continue with the antibiotics. Blood sugar control. She was in DKA. We will get GI involved for the severe abdominal pain, cramping, and now constipation. David Theodore DO
[2019-03-16] MEDS ORDERED: Sodium Chloride 0.45% 1,000 ML IV ONE (13:00)
[2019-03-16 17:07] VITALS: RESP 20
[2019-03-16] MEDS: Insulin Detemir 100 units/ml Vial (Levemir) SC SCH (21:57)
--- NOTE | 2019-03-16 22:14 | PN ---
DATE: 03/16/2019 SUBJECTIVE: The patient was seen earlier this morning, in no acute distress, nontoxic. PHYSICAL EXAMINATION: VITAL SIGNS: On exam, temperature of 98, blood pressure is 120/70, respiratory rate 20, heart rate of 92. HEENT: Unremarkable. NECK: Supple. LUNGS: Have decreased breath sounds. HEART: Normal S1, S2. ABDOMEN: Soft. LABORATORY DATA: Reveals a 10,000 white count which is normal now. Creatinine 0.8. Urinalysis is noted. Microbiology reveals E. coli in the urine. Her blood cultures are negative and E. coli is sensitive to cefazolin and cefepime; sensitive to nitrofurantoin and Bactrim. Review of orders reveals the patient to be on ceftriaxone. ASSESSMENT AND PLAN: A 44-year-old female who was admitted with history of diabetes mellitus, diabetic gastroparesis, nephropathy, hypertension, admitted with sepsis with Escherichia coli urine as the source, diabetic ketoacidosis and currently on ceftriaxone, able to switch to oral Vantin 200 mg orally twice a day for total of seven days. Clarke Velazco MD
--- NOTE | 2019-03-16 23:24 | PN ---
DATE: 03/16/2019 SUBJECTIVE: The patient is experiencing abdominal pain, nausea and vomiting. She denies any substernal chest pain. OBJECTIVE: VITAL SIGNS: Blood pressure 154/85, heart rate 110, temperature 98.3, respirations 20. HEENT: Normocephalic. CHEST: Clear. HEART: S1, S2 regular. EXTREMITIES: No edema. LABORATORY DATA: Today's hemoglobin and hematocrit 11 and 34.8. White count and platelet count are within normal limits. Today's SMA-7 is within normal limits except for glucose 279 and potassium of 3.4. ASSESSMENT: 1. Sinus tachycardia secondary to pain and dehydration. 2. Uncontrolled diabetes mellitus. 3. Hypokalemia. 4. Gastroparesis. 5. Mild pulmonary hypertension. 6. Systemic hypertension. RECOMMENDATIONS: Continue Ativan 0.5 mg p.o. every 12 hours, Lopressor 50 mg twice a day, Lovenox 40 mg subcutaneously once a day, Norvasc 5 mg once a day, IV Rocephin 1 g daily. The patient did receive K-Dur 20 mEq orally which I recommend future potassium replacement to be intravenous given the patient's continued nausea and vomiting. Start normal saline at 60 mL an hour. Roc Rees MD
[2019-03-17] MEDS: Insulin Lispro (humaLOG) LOW Coverage SC SCH ×5 (00:12→21:57)
[2019-03-17] MEDS: Morphine 2 mg/ml ISec IVP PRN ×2 (02:38→06:34)
--- NOTE | 2019-03-17 07:25 | CP.PCM.PN ---
<Zion Conner - Last Filed: 03/17/19 08:41> Subjective - Date & Time of Evaluation Date of Evaluation: 03/17/19 Time of Evaluation: 08:30 - Subjective Subjective: PGY4 GI fellow progress note Patient was sitting up in bed when seen this morning. She states pain is about the same and eating less than 50% of her food due to persistent pain. Some nausea but no recent emesis. Blood sugars remain labile. Still no BM which she attributes to not eating much. Five-point review of systems negative other than stated above Objective - Vital Signs/Intake and Output Vital Signs (last 24 hours): Temp Pulse Resp BP Pulse Ox 98 F 66 20 125/66 98 03/16/19 17:06 03/16/19 18:06 03/16/19 17:06 03/16/19 18:06 03/16/19 17:06 Intake and Output: 03/17/19 03/17/19 06:59 18:59 Intake Total 0 Output Total 200 Balance -200 - Medications Medications: Current Medications Amlodipine Besylate (Norvasc) 5 mg PO DAILY [facility] Last Admin: 03/16/19 09:05 Dose: 5 mg Enoxaparin Sodium (Lovenox) 40 mg SC DAILY [facility]; Protocol Last Admin: 03/16/19 09:05 Dose: 40 mg Ceftriaxone Sodium (Rocephin 1 Gram Ivpb) 1 gm in 100 mls @ 100 mls/hr IVPB DAILY [facility]; Protocol Stop: 03/21/19 10:01 Last Admin: 03/16/19 09:05 Dose: 100 mls/hr Insulin Detemir (Levemir) 12 unit SC HS [facility] Last Admin: 03/16/19 21:57 Dose: 12 units Insulin Human Lispro (Humalog) 6 units SC ACTID [facility] Last Admin: 03/16/19 18:06 Dose: 6 units Insulin Human Lispro (Humalog Low) 0 units SC ACHS [facility]; Protocol Last Admin: 03/17/19 00:12 Dose: Not Given Lorazepam (Ativan) 0.5 mg PO Q12H PRN; Protocol PRN Reason: Anxiety Last Admin: 03/15/19 08:45 Dose: 0.5 mg Metoprolol Tartrate (Lopressor) 50 mg PO BID [facility] Last Admin: 03/16/19 18:06 Dose: 50 mg Morphine Sulfate (Morphine) 2 mg IVP Q4H PRN PRN Reason: Pain, moderate (4-7) Last Admin: 03/17/19 06:34 Dose: 2 mg Ondansetron HCl (Zofran Inj) 4 mg IVP Q4H PRN PRN Reason: Nausea/Vomiting Last Admin: 03/17/19 06:34 Dose: 4 mg Pantoprazole Sodium (Protonix Inj) 40 mg IVP DAILY [facility] Last Admin: 03/16/19 09:09 Dose: 40 mg - Labs Labs: 03/16/19 07:00 03/16/19 07:00 PT 12.3 SECONDS (9.4-12.5) 03/14/19 20:57 INR 1.11 03/14/19 20:57 APTT 39.7 Seconds (26.9-38.3) H 03/14/19 20:57 - Constitutional Appears: Other (poor eye contact, moving about restlessly in bed) - ENT Exam ENT Exam: Mucous Membranes Moist. absent: Mucous Membranes Dry - Respiratory Exam Respiratory Exam: NORMAL BREATHING PATTERN. absent: Accessory Muscle Use - Cardiovascular Exam Cardiovascular Exam: Tachycardia, REGULAR RHYTHM - GI/Abdominal Exam GI & Abdominal Exam: Soft, Tenderness (mildly tender to palpation in the upper half of abdomen without guarding), Hypoactive Bowel Sounds. absent: Bruit, Distended, Firm, Guarding, Rigid, Mass, Normal Bowel Sounds, Organomegaly, Pulsatile Mass Assessment and Plan - Assessment and Plan (Free Text) Assessment: 44 yo BF with DM1 c/b gastroparesis presenting with DKA and N/V # Abdominal pain, Nausea and Vomiting: Likely multifactorial from DKA and known gastroparesis. No signs of obstruction on CT and w/o acute findings. Last EGD Nov 2016 with LA C Esophagitis, gastric and duodenal ulcers Bx negative for Hpylori, dysplasia/metaplasia). Also with EGD since that time at [place], with unclear details. Plan: - Strict glycemic control here in acute setting as well as [facility] outpatient management - Symptomatic trt with ondansetron PRN - Can trial erythromycin as inpatient, monitor QTC - Small, frequent meals with Carb control - Minimize or avoid narcotics due to GI side effects Pt discussed with Dr. Wong; please see attestation for further recs/changes <Maxime Wong Y - Last Filed: 03/17/19 08:53> Objective - Vital Signs/Intake and Output Vital Signs (last 24 hours): Temp Pulse Resp BP Pulse Ox 98 F 66 20 125/66 98 03/16/19 17:06 03/16/19 18:06 03/16/19 17:06 03/16/19 18:06 03/16/19 17:06 Intake and Output: 03/17/19 03/17/19 06:59 18:59 Intake Total 0 Output Total 200 Balance -200 - Medications Medications: Current Medications Amlodipine Besylate (Norvasc) 5 mg PO DAILY [facility] Last Admin: 03/16/19 09:05 Dose: 5 mg Enoxaparin Sodium (Lovenox) 40 mg SC DAILY [facility]; Protocol Last Admin: 03/16/19 09:05 Dose: 40 mg Insulin Detemir (Levemir) 12 unit SC HS [facility] Last Admin: 03/16/19 21:57 Dose: 12 units Insulin Human Lispro (Humalog) 6 units SC ACTID [facility] Last Admin: 03/17/19 08:24 Dose: 6 units Insulin Human Lispro (Humalog Low) 0 units SC ACHS [facility]; Protocol Last Admin: 03/17/19 08:26 Dose: 2 unit Lorazepam (Ativan) 0.5 mg PO Q12H PRN; Protocol PRN Reason: Anxiety Last Admin: 03/15/19 08:45 Dose: 0.5 mg Metoprolol Tartrate (Lopressor) 50 mg PO BID [facility] Last Admin: 03/16/19 18:06 Dose: 50 mg Morphine Sulfate (Morphine) 2 mg IVP Q4H PRN PRN Reason: Pain, moderate (4-7) Last Admin: 03/17/19 06:34 Dose: 2 mg Ondansetron HCl (Zofran Inj) 4 mg IVP Q4H PRN PRN Reason: Nausea/Vomiting Last Admin: 03/17/19 06:34 Dose: 4 mg Pantoprazole Sodium (Protonix Inj) 40 mg IVP DAILY [facility] Last Admin: 03/16/19 09:09 Dose: 40 mg - Labs Labs: 03/16/19 07:00 03/16/19 07:00 PT 12.3 SECONDS (9.4-12.5) 03/14/19 20:57 INR 1.11 03/14/19 20:57 APTT 39.7 Seconds (26.9-38.3) H 03/14/19 20:57 Attending/Attestation - Attestation I have fully participated in the care of the patient.: Yes I have reviewed all pertinent clinical information, including history, physical exam and plan: Yes Notes (Text): 03/17/19 08:51 DM Abdominal pain, nausea, vomiting - gastroparesis - Diabetic diet as tolerated with small frequent meal consumption - Anti-emetic therapy PRN - Maintain strict glycemic control - Will continue to monitor patient clinical course
[2019-03-17] MEDS: Insulin Lispro 1 UNITS/0.01 ML SC SCH ×3 (08:24→17:21)
[2019-03-17 09:21] LABS: HEMOGLOBIN 10.5 g/dL (12.0-16.0); MEAN CELL VOLUME 79.4 fl (80.0-105.0); MEAN CORPUSCULAR HEMOGLOBIN 24.5 pg (25.0-35.0); MEAN CORPUSCULAR HGB CONC 30.9 g/dl (31.0-37.0); MEAN PLATELET VOLUME 9.1 fl (7.0-11.0); RBC 4.28 {null, 10^6/uL} (3.5-6.1); RED CELL DISTRIBUTION WIDTH 15.9 % (11.5-14.5); WHITE BLOOD COUNT 9.2 {null, 10^3/uL} (4.5-11.0)
[2019-03-17 09:53] LABS: ALB/GLOB RATIO 1.1 (1.1-1.8); ALBUMIN 3.8 g/dL (3.0-4.8); ALT/SGPT 32 U/L (7-56); AST/SGOT 28 U/L (14-36); BLOOD UREA NITROGEN 14 mg/dL (7-21); CALCIUM 8.5 mg/dL (8.4-10.5); GFR NON-AFRICAN AMERICAN > 60
[2019-03-17] MEDS: Enoxaparin 40 mg Syringe SC SCH (10:42)
--- NOTE | 2019-03-17 10:45 | PN ---
DATE: 03/17/2019 ENDO FOLLOWUP NOTE LOCATION: In room 361. SUBJECTIVE: This is a 44-year-old female with recent uncontrolled type I insulin dependant diabetes with also concomitant acute exacerbation of diabetic gastroparesis and is now tolerating her meals fairly well at this time with no further vomiting or upper abdominal pain. Her glycemic levels are fluctuating and have ranged from 241 to 179 and 246 mg/dL. LABORATORY DATA: Her chemistries have showed BUN of 14, sodium 139, potassium 3.4, chloride 105, CO2 of 25, glucose 279 and creatinine 6.8. ASSESSMENT: This is 44-year-old female with uncontrolled type I insulin-dependant diabetes presenting here with diabetic ketoacidosis and dehydration with concomitant exacerbation of diabetic gastroparesis and is now being followed closely for metabolic management. PLAN OF MANAGEMENT: Because of the variability of the oral intake, we will continue same basal and bolus insulin regimen to allow for full dose equilibration and keep her on the Levemir given as 12 units subcutaneous at bedtime daily as given. We will also continue her Humalog given as 6 units t.i.d. before meals as ordered. We will also continue the low dose correction scale using Humalog insulin as given. We will obtain serial chemistries and supplement accordingly as needed. We will follow. Tamara Campo MD
--- NOTE | 2019-03-17 11:39 | CP.PCM.CON ---
History of Present Illness - History of Present Illness History of Present Illness: General surgery consult note for Dr. Alyssa Valdivia, PGY-2 Pt seen/examined at bedside. 6F w/PMH sig for DM and gastroparesis consulted for IV access. Pt recently downgraded from ICU with removal of a [facility] TLC, had a PIV in her hand, which she removed earlier today. Pt reports history of multiple central lines and poor IV access. Pt reports N & emesis one day prior to evaluation (nb, bilious). Denies CP, SOB, cough, changes to bowel or bladder habits, other complaints. PMH: DM, gastroparesis PSH: Botox to stomach All: Reglan SH: Denies tobacco, ETOH or illicit drug use PMD: Dr. Theodore Review of Systems - Review of Systems All systems: reviewed and no additional remarkable complaints except - Constitutional Constitutional: absent: Chills, Fever - EENT Nose/Mouth/Throat: absent: Sore Throat - Cardiovascular Cardiovascular: absent: Chest Pain - Gastrointestinal Gastrointestinal: Nausea, Vomiting. absent: Change in Stool Character, Constipation, Diarrhea - Genitourinary Genitourinary: absent: Change in Urinary Stream - Musculoskeletal Musculoskeletal: absent: Back Pain Past Patient History - Infectious Disease Hx of Infectious Diseases: None - Tetanus Immunizations Tetanus Immunization: Unknown - Past Social History Smoking Status: Never Smoked - CARDIAC Hx Cardiac Disorders: Yes Hx Hypertension: Yes - PULMONARY Hx Respiratory Disorders: No - NEUROLOGICAL Hx Neurological Disorder: Yes (NEUROPATHY) - HEENT Hx HEENT Problems: Yes Other/Comment: wears glasses-nearsighted - RENAL Hx Chronic Kidney Disease: No - ENDOCRINE/METABOLIC Hx Diabetes Mellitus Type 1: Yes (hx DKA) - HEMATOLOGICAL/ONCOLOGICAL Hx Anemia: Yes - INTEGUMENTARY Hx Dermatological Problems: Yes (hx diabetic foot ulcers) - MUSCULOSKELETAL/RHEUMATOLOGICAL Hx Falls: No - GASTROINTESTINAL Hx Gastrointestinal Disorders: Yes (gastritis,gastroparesis) Hx Gastroesophageal Reflux: Yes - GENITOURINARY/GYNECOLOGICAL Hx Urinary Tract Infection: Yes - PSYCHIATRIC Hx Psychophysiologic Disorder: Yes Hx Anxiety: Yes Hx Substance Use: No - SURGICAL HISTORY Hx Cardiac Catheterization: No Other/Comment: endoscopy with BOTOX - ANESTHESIA Hx Anesthesia: No Hx Anesthesia Reactions: No Hx Malignant Hyperthermia: No Meds Allergies/Adverse Reactions: Allergies Allergy/AdvReac Type Severity Reaction Status Date / Time metoclopramide HCl AdvReac VOMITING Verified 05/04/18 14:22 [From Reglan] - Medications Medications: Current Medications Amlodipine Besylate (Norvasc) 5 mg PO DAILY [facility] Last Admin: 03/17/19 10:41 Dose: 5 mg Cefpodoxime Proxetil (Vantin) 200 mg PO Q12 [facility]; Protocol Enoxaparin Sodium (Lovenox) 40 mg SC DAILY [facility]; Protocol Last Admin: 03/17/19 10:42 Dose: 40 mg Sodium Chloride (Sodium Chloride 0.45%) 1,000 mls @ 80 mls/hr IV .[id number] [facility] Insulin Detemir (Levemir) 12 unit SC HS [facility] Last Admin: 03/16/19 21:57 Dose: 12 units Insulin Human Lispro (Humalog) 6 units SC ACTID [facility] Last Admin: 03/17/19 11:11 Dose: Not Given Insulin Human Lispro (Humalog Low) 0 units SC ACHS [facility]; Protocol Last Admin: 03/17/19 11:12 Dose: Not Given Lorazepam (Ativan) 0.5 mg PO Q8 PRN; Protocol PRN Reason: Anxiety Last Admin: 03/17/19 10:41 Dose: 0.5 mg Metoprolol Tartrate (Lopressor) 50 mg PO BID [facility] Last Admin: 03/17/19 10:41 Dose: 50 mg Morphine Sulfate (Morphine) 2 mg IVP Q4H PRN PRN Reason: Pain, moderate (4-7) Last Admin: 03/17/19 06:34 Dose: 2 mg Ondansetron HCl (Zofran Inj) 4 mg IVP Q4H PRN PRN Reason: Nausea/Vomiting Last Admin: 03/17/19 06:34 Dose: 4 mg Pantoprazole Sodium (Protonix Inj) 40 mg IVP DAILY [facility] Last Admin: 03/17/19 10:42 Dose: Not Given Quetiapine Fumarate (Seroquel) 12.5 mg PO HS [facility]; Protocol Physical Exam - Constitutional Appears: Non-toxic, No Acute Distress - Head Exam Head Exam: ATRAUMATIC, NORMAL INSPECTION, NORMOCEPHALIC - Eye Exam Eye Exam: EOMI, Normal appearance - ENT Exam ENT Exam: Mucous Membranes Moist, Normal Exam - Neck Exam Neck exam: Positive for: Full Rom. Negative for: Normal Inspection (multiple scars over bilateral neck from previous central lines) - Respiratory Exam Respiratory Exam: NORMAL BREATHING PATTERN - Cardiovascular Exam Cardiovascular Exam: REGULAR RHYTHM - GI/Abdominal Exam GI & Abdominal Exam: Soft. absent: Distended, Tenderness - Extremities Exam Extremities exam: Negative for: normal inspection (multiple scars over bilateral arms due to previous peripheral IV lines) - Neurological Exam Neurological exam: Alert, CN II-XII Intact, Oriented x3 - Psychiatric Exam Psychiatric exam: Normal Affect, Normal Mood - Skin Skin Exam: Dry, Intact, Normal Color, Warm Results - Vital Signs Recent Vital Signs: Last Vital Signs Temp 98.8 F 03/17/19 06:00 Pulse 102 H 03/17/19 10:41 Resp 20 03/17/19 06:00 BP 143/88 03/17/19 10:41 Pulse Ox 100 03/17/19 06:00 - Labs Result Diagrams: 03/17/19 09:00 03/17/19 09:00 Labs: Laboratory Results - last 24 hr 03/16/19 03/16/19 03/17/19 15:37 21:10 01:57 WBC RBC Hgb Hct MCV MCH MCHC RDW Plt Count MPV Sodium Potassium Chloride Carbon Dioxide Anion Gap BUN Creatinine Est GFR ( Amer) Est GFR (Non-Af Amer) POC Glucose (mg/dL) 129 H 179 H 241 H Random Glucose Calcium Total Bilirubin AST ALT Alkaline Phosphatase Total Protein Albumin Globulin Albumin/Globulin Ratio 03/17/19 03/17/19 03/17/19 07:22 09:00 09:00 WBC 9.2 RBC 4.28 Hgb 10.5 L Hct 34.0 L MCV 79.4 L MCH 24.5 L MCHC 30.9 L RDW 15.9 H Plt Count 368 MPV 9.1 Sodium 138 Potassium 3.6 Chloride 102 Carbon Dioxide 22 Anion Gap 17 BUN 14 Creatinine 0.9 Est GFR ( Amer) > 60 Est GFR (Non-Af Amer) > 60 POC Glucose (mg/dL) 246 H Random Glucose 236 H Calcium 8.5 Total Bilirubin 0.8 AST 28 ALT 32 Alkaline Phosphatase 100 Total Protein 7.3 Albumin 3.8 Globulin 3.5 Albumin/Globulin Ratio 1.1 03/17/19 10:58 WBC RBC Hgb Hct MCV MCH MCHC RDW Plt Count MPV Sodium Potassium Chloride Carbon Dioxide Anion Gap BUN Creatinine Est GFR ( Amer) Est GFR (Non-Af Amer) POC Glucose (mg/dL) 123 H Random Glucose Calcium Total Bilirubin AST ALT Alkaline Phosphatase Total Protein Albumin Globulin Albumin/Globulin Ratio Assessment & Plan - Assessment and Plan (Free Text) Assessment: 44M w/PMH sig for poor IV access consulted for IV access Plan: Multiple attempts for PIV performed Recommend conversion of IV medications to PO medications Pt to be evaluated by attending for possible central line access DW Dr. Jhonathan Valdivia, PGY-2 - Date & Time Date: 03/17/19 Time: 11:37
[2019-03-17] MEDS: Cefpodoxime (Vantin) 200 mg Tab PO SCH ×2 (11:46→21:42)
--- NOTE | 2019-03-17 14:00 | PN ---
DATE: 03/17/2019 SUBJECTIVE: I saw her in bed this morning without any IV access. Also, she has been in abdominal pain. She did not eat her breakfast today. She is trying to take some sips of water. She is not doing well with that. I am trying to get an IV access to put her on some IV fluids again. She is being seen by Endocrinology, GI, Infectious Disease, Cardiology. She was about to go for a Botox injection in the gastric fundus, I believe, that was done before 6 months ago and helped her gastroparesis. Now, she is having abdominal pain. She is not comfortable at all, did not eat breakfast, took a couple of sips of water. She needs IV fluids right now. PHYSICAL EXAMINATION: VITAL SIGNS: She has 98.8 temperature, 102 pulse, 143/88 blood pressure, 20 respiratory rate 100% O2 sat on room air. GENERAL: She is uncomfortable in bed. HEAD: Atraumatic, normocephalic. HEART: Regular rate. LUNGS: Have decreased breath sounds. ABDOMEN: Mildly distended, tender to palpation. No guarding, no rebound. Decreased bowel sounds. She is on Ativan, insulin, Levemir, Lopressor, Lovenox, morphine, which she cannot get because it is IV, Norvasc, Protonix, Seroquel, Zofran. She has a 9.2 white count, it is coming down better, 10.5 hemoglobin, 34 hematocrit with 368 platelets. Sodium 138, potassium 3.6, BUN 40, creatinine 0.9, GFR is greater than 60, sugar is 123, calcium 8.5, total bili is 0.8. AST is 28, ALT 32, alk phos 100, total protein 7.3. She did have many bacteria. She could be put on Vantin as per Infectious Disease for the urinary tract infection. If it was not for not able to eat and nauseous and abdominal pain, I would have discharged her today, wanting to get the IV fluids back on board. The patient with abdominal pain, nauseousness, not able to eat. David Theodore DO
[2019-03-17] MEDS: Sodium Chloride 0.45% 1,000 ML IV SCH ×2 (18:36→23:37)
--- NOTE | 2019-03-17 18:46 | PN ---
DATE: 03/17/2019 SUBJECTIVE: The patient denies chest pain. She is still in constant abdominal pain. She has no IV access so far and internal jugular access was attempted, but without success. PHYSICAL EXAMINATION VITAL SIGNS: Blood pressure 143/88, heart rate 102, temperature 98.8 and respirations 20. HEENT: Normocephalic. CHEST: Clear. HEART: S1 and S2, regular. EXTREMITIES: No edema. LABORATORY DATA: She has hemoglobin and hematocrit 10.5 and 34.0. White count and platelet count are within normal limits. SMA-7 is within normal limits except for glucose 236. ASSESSMENT: 1. Improved sinus tachycardia, which is secondary to pain and dehydration. 2. Uncontrolled diabetes mellitus. 3. Gastroparesis. 4. Mild pulmonary hypertension. 5. Systemic hypertension. RECOMMENDATIONS: Continue Lopressor 50 mg twice a day, Norvasc 5 mg daily, Vantin 200 mg twice a day, resume IV fluid infusion after establishing a central venous access. Avoid future oral potassium replacement. Roc Rees MD
--- NOTE | 2019-03-17 19:23 | CON ---
DATE: 03/17/2019 HISTORY OF PRESENT ILLNESS: The patient is a 44-year-old single female with no prior psychiatric history including any prior consultations in the medical floor. This psychiatrist is consulted to evaluate her anxiety while she is being medically optimized, please refer to medical notes for full medical details. I met with the patient at bedside this morning. She is fairly cooperative with my questioning. She denies having any depression or suicidal thoughts. She denies having any hallucinations. She has bouts of anxiety and would like medications to help with that, as well as to help with sleep. Major stressors at this time include her medical issues, which she appears to be very worried about; however, she denies any other stressors entirely and she appears a little guarded. Affect is constricted, but she does not appear paranoid, psychotic, or delusional. Her insight and judgment are considered to be fair. SOCIAL HISTORY: Born and raised in [place]. She is single. She has a 26-year-old son that she lives with. She denies any drug or alcohol issues. She is unemployed. PAST PSYCHIATRIC HISTORY: The patient denies any psychiatric admissions, suicide attempts, or outpatient treatment. Labs and vital signs were reviewed. RELEVANT PSYCHIATRIC MEDICATIONS: On the medical floor include, Ativan 0.5 mg every 12 hours p.r.n. The patient also received a dose of Benadryl 25 mg p.o. once last night. The patient reports that it did not help that much. IMPRESSION: Adjustment disorder with anxiety. RECOMMENDATIONS: At this time, I will start Seroquel 12.5 mg at bedtime to help the patient with sleep. We will continue Ativan 0.5 mg and increase it to every 8 hours p.r.n. for anxiety. Psychiatry will sign off. Please re-consult p.r.n. Popeye Chase MD
[2019-03-17] MEDS: Insulin Detemir 100 units/ml Vial (Levemir) SC SCH (21:42)
--- NOTE | 2019-03-17 23:25 | PN ---
DATE: 03/17/2019 SUBJECTIVE: The patient is in bed, in no acute distress, nontoxic. PHYSICAL EXAMINATION VITAL SIGNS: Temperature is 97, blood pressure is 140/80, respiratory rate of 20, heart rate of 92. HEENT: Unremarkable. NECK: Supple. LUNGS: Have decreased breath sounds. HEART: Normal S1, S2. ABDOMEN: Soft. LABORATORY DATA: Reveals a white count of 9.2, hemoglobin of 10, platelets of 368. BUN of 14, creatinine of 0.9. Urinalysis is noted. Microbiology reveals E. Coli in the urine. REVIEW OF ORDERS: Noted. ASSESSMENT AND PLAN: A 44-year-old female. She was admitted with a history of diabetes mellitus, diabetic gastroparesis, nephropathy, hypertension, admitted with sepsis, Escherichia coli in the urine as the source, diabetic ketoacidosis and complete with p.o. Vantin for a total of 7 days. Clarke Velazco MD
[2019-03-17] MEDS ORDERED: Morphine 2 mg/ml ISec IVP ONE (23:42)
[2019-03-18 06:47] LABS: HEMOGLOBIN 10.6 g/dL (12.0-16.0); MEAN CELL VOLUME 78.6 fl (80.0-105.0); MEAN CORPUSCULAR HEMOGLOBIN 24.9 pg (25.0-35.0); MEAN CORPUSCULAR HGB CONC 31.6 g/dl (31.0-37.0); MEAN PLATELET VOLUME 9.1 fl (7.0-11.0); RBC 4.26 {null, 10^6/uL} (3.5-6.1); RED CELL DISTRIBUTION WIDTH 15.7 % (11.5-14.5)
[2019-03-18 06:57] LABS: ALB/GLOB RATIO 1.1 (1.1-1.8); ALBUMIN 3.5 g/dL (3.0-4.8); ALT/SGPT 25 U/L (7-56); AST/SGOT 43 U/L (14-36); BLOOD UREA NITROGEN 13 mg/dL (7-21); CALCIUM 8.2 mg/dL (8.4-10.5); GFR NON-AFRICAN AMERICAN > 60
[2019-03-18] MEDS ORDERED: Potassium Chloride 40 mEq/30 ml LIQ UD PO ONE (07:56)
--- NOTE | 2019-03-18 08:00 | CP.PCM.PN ---
Subjective - Date & Time of Evaluation Date of Evaluation: 03/18/19 Time of Evaluation: 07:59 - Subjective Subjective: PGY-[address] Campo, Endo Pt vomited once this AM. Nausea and haven't touched breakfast yet. No BM x 1 week. Objective - Vital Signs/Intake and Output Vital Signs (last 24 hours): Temp Pulse Resp BP Pulse Ox 97.9 F 92 H 20 146/83 98 03/17/19 16:30 03/17/19 17:20 03/17/19 16:30 03/17/19 17:20 03/17/19 16:30 Intake and Output: 03/18/19 03/18/19 06:59 18:59 Intake Total 1420 0 Output Total 0 Balance 1420 0 - Medications Medications: Current Medications Acetaminophen (Tylenol 325mg Tab) 650 mg PO Q6H PRN PRN Reason: Pain, Mild (1-3) Amlodipine Besylate (Norvasc) 5 mg PO DAILY [facility] Last Admin: 03/17/19 10:41 Dose: 5 mg Cefpodoxime Proxetil (Vantin) 200 mg PO Q12 [facility]; Protocol Last Admin: 03/17/19 21:42 Dose: 200 mg Enoxaparin Sodium (Lovenox) 40 mg SC DAILY [facility]; Protocol Last Admin: 03/17/19 10:42 Dose: 40 mg Sodium Chloride (Sodium Chloride 0.45%) 1,000 mls @ 80 mls/hr IV .[id number] [facility] Last Admin: 03/17/19 23:37 Dose: 80 mls/hr Ibuprofen (Motrin Tab) 600 mg PO Q6H PRN PRN Reason: Pain, moderate (4-7) Last Admin: 03/17/19 17:26 Dose: 600 mg Insulin Detemir (Levemir) 14 unit SC HS [facility] Insulin Human Lispro (Humalog Low) 0 units SC ACHS [facility]; Protocol Last Admin: 03/17/19 21:57 Dose: Not Given Insulin Human Lispro (Humalog) 8 units SC ACTID [facility] Lorazepam (Ativan) 0.5 mg PO Q8 PRN; Protocol PRN Reason: Anxiety Last Admin: 03/17/19 10:41 Dose: 0.5 mg Metoprolol Tartrate (Lopressor) 50 mg PO BID [facility] Last Admin: 03/17/19 17:20 Dose: 50 mg Ondansetron HCl (Zofran Inj) 4 mg IVP Q4H PRN PRN Reason: Nausea/Vomiting Last Admin: 03/18/19 00:00 Dose: 4 mg Pantoprazole Sodium (Protonix Inj) 40 mg IVP DAILY [facility] Last Admin: 03/17/19 10:42 Dose: Not Given Potassium Chloride (Potassium Chloride Oral Soln) 40 meq PO ONCE ONE Stop: 03/18/19 07:57 Quetiapine Fumarate (Seroquel) 12.5 mg PO HS [facility]; Protocol Last Admin: 03/17/19 23:37 Dose: 12.5 mg Tramadol HCl (Ultram) 50 mg PO Q8H PRN PRN Reason: Pain, severe (8-10) Last Admin: 03/17/19 21:41 Dose: 50 mg - Labs Labs: 03/18/19 06:25 03/18/19 06:25 PT 12.3 SECONDS (9.4-12.5) 03/14/19 20:57 INR 1.11 03/14/19 20:57 APTT 39.7 Seconds (26.9-38.3) H 03/14/19 20:57 - Constitutional Appears: No Acute Distress - Head Exam Head Exam: ATRAUMATIC, NORMAL INSPECTION, NORMOCEPHALIC - Eye Exam Eye Exam: EOMI, Normal appearance, PERRL. absent: Scleral icterus Pupil Exam: NORMAL ACCOMODATION - ENT Exam ENT Exam: Mucous Membranes Moist - Neck Exam Additional comments: supple - Respiratory Exam Respiratory Exam: Clear to Ausculation Bilateral. absent: Rales, Rhonchi, Wheezes - Cardiovascular Exam Cardiovascular Exam: REGULAR RHYTHM, +S1, +S2. absent: Murmur - GI/Abdominal Exam GI & Abdominal Exam: Soft, Hypoactive Bowel Sounds. absent: Tenderness Additional comments: Very sluggish Bowel sounds, no suprapubic tendenrss - Back Exam Back Exam: absent: CVA tenderness (L), CVA tenderness (R) - Neurological Exam Neurological Exam: Alert, Awake, Oriented x3 - Psychiatric Exam Psychiatric exam: Normal Affect, Normal Mood - Skin Skin Exam: Dry, Warm Assessment and Plan - Assessment and Plan (Free Text) Plan: Ms Mancini, 44F, IDDM-1 admitted to ICU for DKA and dehyration, resolved, now downgrade to med/surg. IDDM-1, very sensitive to insulin, labile sugar, A1C 10.5 DKA - resolved likely precipitate from recent cold with current E-coli UTI to be on 7 days of antibiotics Intractable nausea, vomiting, abdominal pain - advance to soft diet but downgrades to liquid diet last night, add NS @80, but will plan to upgrade diet for lunch (Just changed liquid to low carb consist) - standing humalog 8 actid, levemir 14, isss starting at BG>300 - (Home: humalog 5 ACTID and Basaglar 7 HS) s/r/d/w Dr Campo
[2019-03-18 08:23] VITALS: TEMP 98; O2SAT 100
[2019-03-18] MEDS: Insulin Lispro (humaLOG) LOW Coverage SC SCH ×3 (08:59→18:15)
[2019-03-18] MEDS: Insulin Lispro 1 UNITS/0.01 ML SC SCH ×3 (09:00→18:15)
[2019-03-18] MEDS: Cefpodoxime (Vantin) 200 mg Tab PO SCH (09:01)
[2019-03-18] MEDS: Enoxaparin 40 mg Syringe SC SCH (09:02)
[2019-03-18] MEDS: Sodium Chloride 0.45% 1,000 ML IV SCH (13:30)
--- NOTE | 2019-03-18 14:15 | PN ---
DATE: 03/18/2019 SUBJECTIVE: The patient is resting comfortably. PHYSICAL EXAMINATION: VITAL SIGNS: Blood pressure 132/81, heart rate is in the 80s. NECK: Negative JVD. LUNGS: Without rales. HEART: S1, S2. EXTREMITIES: Without edema. LABORATORY DATA: The bicarb is 27. The glucose is 243, hemoglobin is 10.8. IMPRESSION: 1. Resolution of sinus tachycardia with control of pain. 2. No further metabolic acidosis. 3. Anemia. 4. History of gastroparesis. PLAN: Given these findings, the patient's heart rate is stable. The patient is scheduled for discharge today. Jim Field MD
[2019-03-18 18:17] VITALS: BP 116/71; PULSE 93
--- NOTE | 2019-03-18 21:22 | PN ---
DATE: 03/18/2019 SUBJECTIVE: The patient is in bed, in no acute distress, nontoxic. PHYSICAL EXAMINATION VITAL SIGNS: Temperature is 98, blood pressure is 116/70, respiratory rate of 20. HEENT: Unremarkable. NECK: Supple. LUNGS: Have decreased breath sounds. HEART: Normal S1, S2. ABDOMEN: Soft. LABORATORY DATA: Reveals a white count of 7, hemoglobin of 10, BUN of 13, creatinine of 0.8. Microbiology reveals the patient has an E. coli in the urine. ASSESSMENT AND PLAN: A 44-year-old female who was seen earlier this morning, admitted with history of diabetes, diabetic gastroparesis, nephropathy, hypertension, admitted with sepsis, Escherichia coli in the urine as the source, diabetic ketoacidosis, on p.o. Vantin for a total of 7 days. Clarke Velazco MD
[2019-03-18] MEDS ORDERED: Insulin Detemir 100 units/ml Vial (Levemir) SC SCH (22:00)
--- NOTE | 2019-03-18 23:16 | PN ---
DATE: 03/18/2019 ENDOCRINOLOGY FOLLOWUP NOTE LOCATION: In room 360. SUBJECTIVE: This is a 44-year-old female with recent uncontrolled type 1 insulin-dependent diabetes, now being followed closely for metabolic management. Her oral intake continues to be quite variable with persistent nausea and dyspepsia as noted thereof. She was switched back over to a liquid diet today and for the lunchtime was advanced to a soft carb consistent diet which poorly tolerated thereof. 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 LABORATORY DATA: Her glucose levels are fluctuating but ranged from 240 to 249 mg/dL. Her A1c is 10.5% which is quite elevated and indicative of suboptimal metabolic control of her diabetic condition even prior to this admission. Her chemistry showed a BUN of 13, sodium 134, potassium 3.4, chloride 99, CO2 of 27, glucose 243 and creatinine 0.8. ASSESSMENT: This is a 44-year-old female with uncontrolled and decompensated type 1 insulin-dependent diabetes with extremes of glycemic fluctuations related to the variability of her oral intake and has concomitant diabetic gastroparesis with frequent and multiple hospital readmissions for exacerbations of an apparent intractable pain. It ass been very clear from the current and previous hospital readmissions that the patient is really chemically dependent on narcotic analgesics for an apparent pain relief. Her father actually notify the nursing staff today to hold off giving the patient further narcotic analgesics especially morphine at this time. The patient is actually scheduled for discharge today as noted. PLAN OF MANAGEMENT: We will continue the present basal and bolus insulin drug combination because of the marked hyperglycemic accelerations over the last 48 hours as noted. We will continue the Humalog given as 8 units t.i.d. before meals to start today as ordered. We will continue also the basal insulin given as Levemir at 14 units subcu at bedtime daily to start tonight. She has been advised through the nursing staff after discussion regarding her insulin dose regimen for discharge that we keep the current insulin regimen as mentioned even upon discharge and when her oral intake remains variable and suboptimal with supervening nausea or dyspepsia, then she has been advised to give half the dose of the current insulin regimen as ordered. We will follow. Tamara Campo MD
--- NOTE | 2019-03-19 02:59 | DS ---
DISCHARGE SUMMARY She is feeling better this morning. She is in better spirits. She is also hungry this morning, which is great. She will have clears for breakfast. If she does well we will give her regular for lunch and if she does well with this we will discharge her this afternoon to the home on her Ativan, insulin, Levemir, metoprolol, Motrin, Norvasc, Protonix, Seroquel, Vantin for 6 more days and Zofran if needed. PHYSICAL EXAMINATION GENERAL: She is much more alert and animated, smiling. No acute distress. Her pain is a lot better this morning. Her father is with her. VITAL SIGNS: She has a 98 temperature, 105 pulse, 160/64 blood pressure, 20 respiratory rate, and 100% O2 sat on room air. HEENT: Head; atraumatic, normocephalic. HEART: Regular rate. LUNGS: Decreased breath sounds. ABDOMEN: Soft, nontender, positive bowel sounds. EXTREMITIES: No edema, which is good. LABORATORY DATA: She has a 7 white count, 10.6 hemoglobin, 33.5 hematocrit with a 357 platelets. A 134 sodium, potassium is 3.4, she is on potassium replacement, BUN 13, creatinine 0.8, GFR is greater than 60, sugar is 243, calcium is 8.2, total bili is 0.6. AST is 43, ALT is 25, alk phos 101, total protein is 6.9. ASSESSMENT AND PLAN: I am hoping we could discharge her if she does well for lunch, she should, best I have seen her since she has been here. David Theodore DO
== END 2019-03-18 19:04 | disposition home or self-care (01) | DRG 566 ==
LOC: ED 18:55 → ERH 03-14 00:36 → CCU 03-14 01:42 → 3RNO 03-14 21:27
PROVIDERS: ADMIT Family Medicine; ATTEND Family Medicine
PROC: 06HY33Z Insertion of Infusion Device into Lower Vein, Percutaneous Approach (ICD-10-PCS; principal; 2019-03-14)
DX: E10.10 Type 1 diabetes mellitus with ketoacidosis without coma (principal); A41.9 Sepsis, unspecified organism; N39.0 Urinary tract infection, site not specified; E86.0 Dehydration; E87.6 Hypokalemia; E10.43 Type 1 diabetes mellitus with diabetic autonomic (poly)neuropathy; K31.84 Gastroparesis; E10.21 Type 1 diabetes mellitus with diabetic nephropathy; E10.51 Type 1 diabetes mellitus with diabetic peripheral angiopathy without gangrene; E10.319 Type 1 diabetes mellitus with unspecified diabetic retinopathy without macular edema; B96.20 Unspecified Escherichia coli [E. coli] as the cause of diseases classified elsewhere; I10 Essential (primary) hypertension; E78.5 Hyperlipidemia, unspecified; I27.20 Pulmonary hypertension, unspecified; D64.9 Anemia, unspecified; K21.0 Gastro-esophageal reflux disease with esophagitis; K44.9 Diaphragmatic hernia without obstruction or gangrene; K59.00 Constipation, unspecified; F43.22 Adjustment disorder with anxiety; Z79.4 Long term (current) use of insulin; Z87.440 Personal history of urinary (tract) infections

== ENCOUNTER 2019-04-16 14:23 | Inpatient (IN) | payer MEDICAID ==
[2019-04-16 15:07] VITALS: BMI 29.7
[2019-04-16] MEDS ORDERED: Sodium Chloride 0.9% 1,000 ML IV ONE ×2 (15:10→16:48)
--- NOTE | 2019-04-16 15:14 | ED PDOC ---
Arrival/HPI - General Chief Complaint: GI Problem Time Seen by Provider: 04/16/19 14:59 Historian: Patient, Parent - History of Present Illness Time/Duration: Other (This morning) Symptom Onset: Gradual Symptom Course: Worsening Severity Level: Severe Associated Symptoms (Text): 04/16/19 15:12 Patient is refusing to speak. Mother reports that she can speak, but is choosing not to. Patient answers yes/no questions with a head nod. Mother gives the rest of the history. Apparently sometime this morning she developed abdominal pain nausea and vomiting. No diarrhea. she has had multiple similar episodes in the past. There is a history of gastroparesis and diabetic ketoacidosis. She reports her blood sugar was 130 this morning. No fever. No travel or exposure. No injury or trauma. Past Medical History - Past History Past History: No Previous - Infectious Disease Hx of Infectious Diseases: None - Tetanus Immunization Tetanus Immunization: Unknown - Past Medical History Past Medical History: No Previous - Cardiac Hx Cardiac Disorders: Yes Hx Hypertension: Yes - Pulmonary Hx Respiratory Disorders: No - Neurological Hx Neurological Disorder: Yes (NEUROPATHY) - HEENT Hx HEENT Disorder: Yes Other/Comment: wears glasses-nearsighted - Renal Hx Renal Disorder: No - Endocrine/Metabolic Hx Diabetes Mellitus Type 1: Yes (hx DKA) - Hematological/Oncological Hx Anemia: Yes - Integumentary Hx Dermatological Disorder: Yes (hx diabetic foot ulcers) - Musculoskeletal/Rheumatological Hx Falls: No - Gastrointestinal Hx Gastrointestinal Disorders: Yes (gastritis,gastroparesis) Hx Gastroesophageal Reflux: Yes - Genitourinary/Gynecological Hx Urinary Tract Infection: Yes - Psychiatric Hx Psychophysiologic Disorder: Yes Hx Anxiety: Yes Hx Substance Use: No - Past Surgical History Past Surgical History: No Previous - Surgical History Hx Cardiac Catheterization: No Other/Comment: endoscopy with BOTOX - Anesthesia Hx Anesthesia: No Hx Anesthesia Reactions: No Hx Malignant Hyperthermia: No - Suicidal Assessment Feels Threatened In Home Enviroment: No Family/Social History - Physician Review Nursing Documentation Reviewed: Yes Family/Social History: Unknown Family HX Smoking Status: Never Smoked Hx Alcohol Use: No Hx Substance Use: No Hx Substance Use Treatment: No Allergies/Home Meds Allergies/Adverse Reactions: Allergies metoclopramide HCl [From Reglan] Adverse Reaction (Verified 05/04/18 14:22) VOMITING Review of Systems - Review of Systems Systems not reviewed;Unavailable: Uncooperative Physical Exam Temperature: Afebrile Blood Pressure: Normal Pulse: Tachycardic Respiratory Rate: Normal Appearance: Positive for: Well-Appearing, Non-Toxic, Uncomfortable Pain Distress: None Mental Status: Positive for: other (Awake and alert) - Systems Exam Head: Present: Atraumatic, Normocephalic Pupils: Present: PERRL Extroacular Muscles: Present: EOMI Conjunctiva: Present: Normal Ears: Present: NORMAL TM, Normal Canal. No: Erythema, TM Bulging Mouth: Present: Moist Mucous Membranes Pharnyx: No: ERYTHEMA, EXUDATE, TONSILS ENLARGED Neck: Present: Normal Range of Motion Respiratory/Chest: Present: Clear to Auscultation, Good Air Exchange. No: Respiratory Distress, Accessory Muscle Use Cardiovascular: Present: Regular Rate and Rhythm, Normal S1, S2, Tachycardic. No: Murmurs Abdomen: Present: Other (Writhing about). No: Tenderness, Distention, Peritoneal Signs, Rebound, Guarding Back: Present: Normal Inspection. No: CVA Tenderness, Midline Tenderness, Paraspinal Tenderness Upper Extremity: Present: Normal Inspection. No: Cyanosis, Edema Lower Extremity: Present: Normal Inspection. No: Edema Neurological: Present: GCS=15, CN II-XII Intact, Speech Normal, Motor Func Grossly Intact Skin: Present: Warm, Dry, Normal Color. No: Rashes Psychiatric: Present: Agitated Medical Decision Making ED Course and Treatment: 04/16/19 15:26 EKG shows sinus tachycardia rate approximately [address] or T wave changes. 04/16/19 17:37 Seen and evaluated in the emergency department by Dr. Theodore who will admit. - Lab Interpretations Narrative Lab Interpretation (Text): 04/16/19 16:43 04/16/19 16:10 04/16/19 16:10 Lab Results 04/16/19 16:10: Sodium 144, Chloride 104, Potassium 4.2, Carbon Dioxide 25, Anion Gap 18, BUN 30 H, Creatinine 1.1, Est GFR ( Amer) > 60, Est GFR (Non-Af Amer) 54, Random Glucose 200 H, Calcium 10.0, Magnesium 2.0, Total Bilirubin 0.9, AST 25, ALT 17, Alkaline Phosphatase 158 H D, Lactate Dehydrogenase 596, Total Creatine Kinase 254 H, CK-MB (CK-2) Pending, CK-MB (CK- 2) % Pending, Troponin I < 0.01, Total Protein 9.0 H, Albumin 4.7, Globulin 4.3, Albumin/Globulin Ratio 1.1, Lipase 18 L 04/16/19 16:10: WBC 18.6 H D, RBC 4.54, Hgb 11.2 L, Hct 35.0 L, MCV 77.1 L, MCH 24.7 L, MCHC 32.0, RDW 16.5 H, Plt Count 562 H, MPV 8.6, Neut % (Auto) 87.1 H, Lymph % (Auto) 9.0 L, Castro % (Auto) 3.8, Eos % (Auto) 0.1 L, Baso % (Auto) 0.0, Lymph # (Auto) 1.7, Castro # (Auto) 0.7 H, Eos # (Auto) 0.0, Baso # (Auto) 0.00, Absolute Neuts (auto) 16.18 H 04/16/19 16:08: pO2 41, VBG pH 7.39, VBG pCO2 44.0, VBG HCO3 26.6, VBG Total CO2 28.0, VBG O2 Sat (Calc) 75.7 H, VBG Base Excess 1.2, VBG Potassium 4.1, Sodium 144.0, Chloride 108.0 H, Glucose 203 H, Lactate 1.4, FiO2 21.0, Venous Blood Potassium 4.1 04/16/19 15:16: POC Glucose (mg/dL) 165 H - RAD Interpretation Radiology Orders: X-ray chest one view shows no infiltrate effusion or cardiomegaly. 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 I have reviewed the chart and agree that the record accurately reflects my personal performance of the history, physical exam, medical decision making, and the department course for this patient. I have also personally directed, reviewed, and agree with the discharge instructions and disposition. Disposition/Present on Arrival - Present on Arrival Any Indicators Present on Arrival: No History of DVT/PE: No History of Uncontrolled Diabetes: Yes Urinary Catheter: No History of Decub. Ulcer: No History Surgical Site Infection Following: None - Disposition Have Diagnosis and Disposition been Completed?: Yes Diagnosis: Gastroparesis, Nausea & vomiting, Hyperglycemia, Leukocytosis, Tachycardia Disposition: HOSPITALIZED Disposition Time: 17:38 Patient Plan: Observation, Telemetry Patient Problems: Current Active Problems Problem Status Onset Gastroparesis Acute Hyperglycemia Acute Nausea & vomiting Acute Condition: FAIR Forms: [facility] (Ukrainian)
[2019-04-16 16:16] LABS: VENOUS BLOOD GAS BASE EXCESS 1.2 mmol/L (0.0-2.0); VENOUS BLOOD GAS PO2 41 mm/Hg (30-55); VENOUS BLOOD PH 7.39 (7.32-7.43)
[2019-04-16 16:26] LABS: EOS % 0.1 % (1.5-5.0); HEMOGLOBIN 11.2 g/dL (12.0-16.0); LYMPH # 1.7 (1.2-3.4); MEAN CELL VOLUME 77.1 fl (80.0-105.0); MEAN CORPUSCULAR HEMOGLOBIN 24.7 pg (25.0-35.0); MEAN PLATELET VOLUME 8.6 fl (7.0-11.0); MONO # 0.7 (0.1-0.6); MONO % 3.8 % (1.0-6.0); RBC 4.54 10^6/uL (3.5-6.1); RED CELL DISTRIBUTION WIDTH 16.5 % (11.5-14.5); WHITE BLOOD COUNT 18.6 10^3/uL (4.5-11.0)
[2019-04-16 16:32] LABS: ALB/GLOB RATIO 1.1 (1.1-1.8); ALBUMIN 4.7 g/dL (3.0-4.8); ALT/SGPT 17 U/L (7-56); AST/SGOT 25 U/L (14-36); BLOOD UREA NITROGEN 30 mg/dL (7-21); GFR NON-AFRICAN AMERICAN 54; LIPASE 18 U/L (23-300)
[2019-04-16 16:42] LABS: TROPONIN I < 0.01 ng/mL
[2019-04-16 16:49] LABS: CK-MB 3.1 ng/mL (0.0-3.6)
[2019-04-16 17:20] LABS: URINE BILIRUBIN SMALL (NEGATIVE); URINE BLOOD SMALL (NEGATIVE); URINE GLUCOSE (UA) 500 mg/dL (NEGATIVE); URINE LEUKOCYTE ESTERASE NEGATIVE Leu/uL (NEGATIVE); URINE PROTEIN 100 mg/dL (<30 mg/dL); URINE UROBILINOGEN 0.2 E.U./dL (<1 E.U./dL)
[2019-04-16 17:21] LABS: URINE APPEARANCE TURBID (CLEAR); URINE COLOR YELLOW (YELLOW)
[2019-04-16 17:22] LABS: URINE BACTERIA MANY /hpf; URINE EPITHELIAL CELLS MANY /hpf (0-5); URINE RBC 0 - 2 /hpf (0-2); URINE WBC 0 - 2 /hpf (0-6)
[2019-04-16] MEDS ORDERED: POLYETHYLENE GLYCOL 3350 17 GM/Dose PACKET PO PRN (17:31)
[2019-04-16] MEDS ORDERED: cefTRIAXone 1 gm 1 GM/100 ML BAG IVPB SCH (17:45)
--- NOTE | 2019-04-16 17:46 | RAD ---
Date of service: 04/16/2019 HISTORY: ap COMPARISON: 03/14/2019 FINDINGS: LUNGS: No active pulmonary disease. PLEURA: No significant pleural effusion identified, no pneumothorax apparent. CARDIOVASCULAR: No atherosclerotic calcification present Normal. OSSEOUS STRUCTURES: No significant abnormalities. VISUALIZED UPPER ABDOMEN: Normal. OTHER FINDINGS: None. IMPRESSION: No active disease. No significant interval change compared to the prior examination(s).
[2019-04-16 17:51] LABS: BARBITURATES, UR NEGATIVE (NEGATIVE); BENZODIAZEPINES, UR NEGATIVE (NEGATIVE); OPIATES, UR NEGATIVE (NEGATIVE); PHENCYCLIDINE, UR NEGATIVE (NEGATIVE)
--- NOTE | 2019-04-16 18:13 | CARD ---
APPROVED REPORT Date of service: 04/16/2019 EKG Measurement Heart [id number] <Conclusion> Sinus tachycardia Intraventricular conduction delay of RBBB type Leftward axis Abnormal ECG
[2019-04-16] MEDS: Morphine 2 mg/ml ISec IVP PRN (20:01)
[2019-04-16] MEDS ORDERED: DiphenhydrAMINE 50 mg/ml Inj IVP STA (22:40)
[2019-04-16] MEDS: Insulin Detemir 100 units/ml Vial (Levemir) SC SCH (23:33)
[2019-04-16] MEDS: Meropenem IV 1 gm in NS 1 GM/50 ML BAG IVPB SCH (23:34)
--- NOTE | 2019-04-16 23:35 | HP ---
DATE OF EXAM: 04/16/2019 HISTORY OF PRESENT ILLNESS: She is a 44-year-old female who I know from multiple office visits and also multiple hospital stays. She has severe back pain that gradually started this morning. She is a 44-year-old female who has had 12 hours of abdominal pain, nausea, vomiting. Had similar episodes in the past with gastroparesis, diabetic ketoacidosis in the past. The blood sugar was 130 today. PAST MEDICAL HISTORY: Gastroparesis, hypertension, neuropathy. She wears glasses. She had a DKA in the past, anemia, history of diabetic foot ulcers, gastritis, gastroparesis, gastroesophageal reflux, urinary tract infections, anxiety. She has had endoscopy with Botox. FAMILY HISTORY: Unknown family history. SOCIAL HISTORY: Nonsmoker. No drinking. No drugs. ALLERGIES: SHE IS ALLERGIC TO REGLAN. REVIEW OF SYSTEMS: Just abdominal pain. No chest pain or shortness of breath, just uncomfortable, writhing and moving in the bed. She is toxic, uncomfortable, awake and alert, not talking much. PHYSICAL EXAMINATION HEENT: Head; atraumatic, normocephalic. Extraocular muscles are intact. Pupils equally react to light and accommodation. Throat is moist. NECK: Supple. HEART: Regular rate. LUNGS: Decreased breath sounds but clear. ABDOMEN: No tenderness. She is writhing about. No apparent rebound or guarding. No CVA tenderness. EXTREMITIES: No edema. NEUROLOGIC: GCS is 15. Cranial nerves II through XII grossly intact. Speech is normal. She is very agitated, very upset. She is tachycardic in the 130s. SKIN: Warm and dry. No apparent rashes or ulcers appreciative. LABORATORY DATA: She has an 18.6 white count, 11.2 hemoglobin, 35 hematocrit with 562 platelets. Lactate is 1.4. She has a 144 sodium, potassium 4.2, BUN 30, creatinine 0.1, GFR is 54, sugar is 200, calcium is 10, magnesium 2. Total bili is 0.9. AST is 25, ALT is 17, alk phos 158. Lactate dehydrogenase is 596. Total creatine kinase is 254. Troponin I is less than 0.01, total protein is 9, albumin is 4.7. Lipase is 18. Urine is positive for many bacteria. ASSESSMENT AND PLAN: She is going to have a consult with Infectious Disease with an 18,000 white count, possible urinary tract infection. Cardiology for the tachycardia. I put her on the metoprolol, I put her on Rocephin. I will call in Gastroenterology who had seen her in the past. She is here for leukocytosis, abdominal pain, possible urinary tract infection and tachycardia. David Theodore DO
[2019-04-17] MEDS: Morphine 2 mg/ml ISec IVP PRN ×3 (02:51→16:30)
[2019-04-17 08:29] VITALS: O2SAT 98
[2019-04-17 08:47] LABS: HEMOGLOBIN 10.5 g/dL (12.0-16.0); MEAN CELL VOLUME 78.5 fl (80.0-105.0); MEAN CORPUSCULAR HEMOGLOBIN 24.6 pg (25.0-35.0); MEAN CORPUSCULAR HGB CONC 31.3 g/dl (31.0-37.0); MEAN PLATELET VOLUME 8.6 fl (7.0-11.0); RBC 4.27 10^6/uL (3.5-6.1); WHITE BLOOD COUNT 16.5 10^3/uL (4.5-11.0)
--- NOTE | 2019-04-17 09:00 | CP.PCM.CON ---
<Russell Astorga - Last Filed: 04/17/19 14:27> History of Present Illness - History of Present Illness History of Present Illness: Infectious disease consult note: 44-year-old female with past medical history of diabetes type 1, gastroparesis, hypertension, neuropathy, history of DKA, anemia, GERD, history of UTI, anxiety presents with severe back pain, abdominal pain, nausea and vomiting. Patient states that her symptoms started initially 2 days prior to arrival to the hospital. Then 12 hours prior to arrival her pain started to get very severe. She states that she had similar episode of pain that was secondary to her gastroparesis. She does complain of poor appetite secondary to the pain. Denies any fevers. Infectious disease was consulted for IV antibiotics. 12 point ROS performed and negative other than stated above PMH: As above PSH: Denies Medications: Refer to [facility] Allergies: metoclopramide SH: Denies any smoking, drinking, or drugs Review of Systems - Review of Systems All systems: reviewed and no additional remarkable complaints except Past Patient History - Infectious Disease Hx of Infectious Diseases: None - Tetanus Immunizations Tetanus Immunization: Unknown - Past Social History Smoking Status: Never Smoked - CARDIAC Hx Cardiac Disorders: Yes Hx Hypertension: Yes - PULMONARY Hx Respiratory Disorders: No - NEUROLOGICAL Hx Neurological Disorder: Yes (NEUROPATHY) - HEENT Hx HEENT Problems: Yes Other/Comment: wears glasses-nearsighted - RENAL Hx Chronic Kidney Disease: No - ENDOCRINE/METABOLIC Hx Diabetes Mellitus Type 1: Yes (hx DKA) - HEMATOLOGICAL/ONCOLOGICAL Hx Anemia: Yes - INTEGUMENTARY Hx Dermatological Problems: Yes (hx diabetic foot ulcers) - MUSCULOSKELETAL/RHEUMATOLOGICAL Hx Falls: No - GASTROINTESTINAL Hx Gastrointestinal Disorders: Yes (gastritis,gastroparesis) Hx Gastroesophageal Reflux: Yes - GENITOURINARY/GYNECOLOGICAL Hx Urinary Tract Infection: Yes - PSYCHIATRIC Hx Psychophysiologic Disorder: Yes Hx Anxiety: Yes - SURGICAL HISTORY Hx Cardiac Catheterization: No Other/Comment: endoscopy with BOTOX - ANESTHESIA Hx Anesthesia: No Hx Anesthesia Reactions: No Hx Malignant Hyperthermia: No Meds Allergies/Adverse Reactions: Allergies Allergy/AdvReac Type Severity Reaction Status Date / Time metoclopramide HCl AdvReac VOMITING Verified 05/04/18 14:22 [From Reglan] - Medications Medications: Current Medications Amlodipine Besylate (Norvasc) 5 mg PO DAILY [facility] Docusate Sodium (Colace) 100 mg PO BID [facility] Last Admin: 04/16/19 19:31 Dose: 100 mg Meropenem (Merrem Iv 1 Gm Premix) 1 gm in 50 mls @ 100 mls/hr IVPB Q12 [facility]; Protocol Stop: 04/25/19 22:01 Last Admin: 04/16/19 23:34 Dose: 100 mls/hr Insulin Detemir (Levemir) 14 unit SC HS [facility] Last Admin: 04/16/19 23:33 Dose: 14 units Insulin Human Lispro (Humalog) 8 units SC ACTID [facility] Ketorolac Tromethamine (Toradol) 30 mg IVP Q6H PRN PRN Reason: Pain, moderate (4-7) Last Admin: 04/16/19 21:53 Dose: 30 mg Lorazepam (Ativan) 0.5 mg PO BID [facility]; Protocol Last Admin: 04/16/19 19:31 Dose: 0.5 mg Metoprolol Tartrate (Lopressor) 50 mg PO BID [facility] Morphine Sulfate (Morphine) 2 mg IVP Q6H PRN PRN Reason: Pain, severe (8-10) Last Admin: 04/17/19 02:51 Dose: 2 mg Ondansetron HCl (Zofran Inj) 4 mg IVP Q4H PRN PRN Reason: Nausea/Vomiting Last Admin: 04/16/19 19:34 Dose: 4 mg Pantoprazole Sodium (Protonix Inj) 40 mg IVP DAILY [facility] Polyethylene Glycol (Miralax) 17 gm PO DAILY PRN PRN Reason: Constipation Potassium Chloride (K-Dur 20 Meq Er Tab) 20 meq PO DAILY [facility] Sucralfate (Carafate Tab) 1 gm PO BID [facility] Last Admin: 04/16/19 19:31 Dose: 1 gm Physical Exam - Constitutional Appears: No Acute Distress - Head Exam Head Exam: ATRAUMATIC, NORMOCEPHALIC - Eye Exam Eye Exam: EOMI, PERRL - ENT Exam ENT Exam: Mucous Membranes Moist - Respiratory Exam Respiratory Exam: Clear to Auscultation Bilateral. absent: Rales, Rhonchi, Wheezes - Cardiovascular Exam Cardiovascular Exam: REGULAR RHYTHM, +S1, +S2 - GI/Abdominal Exam GI & Abdominal Exam: Normal Bowel Sounds, Soft, Tenderness. absent: Distended, Guarding - Extremities Exam Extremities exam: Negative for: calf tenderness, pedal edema - Neurological Exam Neurological exam: Alert, Oriented x3 - Psychiatric Exam Psychiatric exam: Normal Mood - Skin Skin Exam: Dry, Warm Results - Vital Signs Recent Vital Signs: Last Vital Signs Temp 98.1 F 04/17/19 06:00 Pulse 74 04/17/19 06:00 Resp 20 04/17/19 06:00 BP 149/84 04/17/19 06:00 Pulse Ox 98 04/17/19 06:00 - Labs Result Diagrams: 04/17/19 08:30 04/17/19 08:30 Labs: Laboratory Results - last 24 hr 04/16/19 04/16/19 04/16/19 15:16 16:08 16:10 WBC 18.6 H D RBC 4.54 Hgb 11.2 L Hct 35.0 L MCV 77.1 L MCH 24.7 L MCHC 32.0 RDW 16.5 H Plt Count 562 H MPV 8.6 Neut % (Auto) 87.1 H Lymph % (Auto) 9.0 L Cooper % (Auto) 3.8 Eos % (Auto) 0.1 L Baso % (Auto) 0.0 Lymph # (Auto) 1.7 Cooper # (Auto) 0.7 H Eos # (Auto) 0.0 Baso # (Auto) 0.00 Absolute Neuts (auto) 16.18 H pO2 41 VBG pH 7.39 VBG pCO2 44.0 VBG HCO3 26.6 VBG Total CO2 28.0 VBG O2 Sat (Calc) 75.7 H VBG Base Excess 1.2 VBG Potassium 4.1 Sodium 144.0 Chloride 108.0 H Glucose 203 H Lactate 1.4 FiO2 21.0 Potassium Carbon Dioxide Anion Gap BUN Creatinine Est GFR ( Amer) Est GFR (Non-Af Amer) POC Glucose (mg/dL) 165 H Random Glucose Calcium Magnesium Total Bilirubin AST ALT Alkaline Phosphatase Lactate Dehydrogenase Total Creatine Kinase CK-MB (CK-2) CK-MB (CK-2) % Troponin I Total Protein Albumin Globulin Albumin/Globulin Ratio Lipase Venous Blood Potassium 4.1 Urine Color Urine Appearance Urine pH Ur Specific [place] Urine Protein Urine Glucose (UA) Urine Ketones Urine Blood Urine Nitrate Urine Bilirubin Urine Urobilinogen Ur Leukocyte Esterase Urine RBC Urine WBC Ur Epithelial Cells Urine Bacteria Urine Opiates Screen Urine Methadone Screen Ur Barbiturates Screen Ur Phencyclidine Scrn Ur Amphetamines Screen U Benzodiazepines Scrn U Oth Cocaine Metabols U Cannabinoids Screen 04/16/19 04/16/19 04/16/19 16:10 17:00 17:00 WBC RBC Hgb Hct MCV MCH MCHC RDW Plt Count MPV Neut % (Auto) Lymph % (Auto) Cooper % (Auto) Eos % (Auto) Baso % (Auto) Lymph # (Auto) [place] # (Auto) Eos # (Auto) Baso # (Auto) Absolute Neuts (auto) pO2 VBG pH VBG pCO2 VBG HCO3 VBG Total CO2 VBG O2 Sat (Calc) VBG Base Excess VBG Potassium Sodium 144 Chloride 104 Glucose Lactate FiO2 Potassium 4.2 Carbon Dioxide 25 Anion Gap 18 BUN 30 H Creatinine 1.1 Est GFR ( Amer) > 60 Est GFR (Non-Af Amer) 54 POC Glucose (mg/dL) Random Glucose 200 H Calcium 10.0 Magnesium 2.0 Total Bilirubin 0.9 AST 25 ALT 17 Alkaline Phosphatase 158 H D Lactate Dehydrogenase 596 Total Creatine Kinase 254 H CK-MB (CK-2) 3.1 CK-MB (CK-2) % Cancelled Troponin I < 0.01 Total Protein 9.0 H Albumin 4.7 Globulin 4.3 Albumin/Globulin Ratio 1.1 Lipase 18 L Venous Blood Potassium Urine Color Yellow Urine Appearance Turbid Urine pH 6.0 Ur Specific [place] >= 1.030 Urine Protein 100 H Urine Glucose (UA) 500 H Urine Ketones >=80 Urine Blood Small H Urine Nitrate Negative Urine Bilirubin Small H Urine Urobilinogen 0.2 Ur Leukocyte Esterase Negative Urine RBC 0 - 2 Urine WBC 0 - 2 Ur Epithelial Cells Many H Urine Bacteria Many Urine Opiates Screen Negative Urine Methadone Screen Negative Ur Barbiturates Screen Negative Ur Phencyclidine Scrn Negative Ur Amphetamines Screen Negative U Benzodiazepines Scrn Negative U Oth Cocaine Metabols Negative U Cannabinoids Screen Negative 04/16/19 04/17/19 21:42 08:30 WBC 16.5 H RBC 4.27 Hgb 10.5 L Hct 33.5 L MCV 78.5 L MCH 24.6 L MCHC 31.3 RDW 17.0 H Plt Count 518 H MPV 8.6 Neut % (Auto) Lymph % (Auto) Cooper % (Auto) Eos % (Auto) Baso % (Auto) Lymph # (Auto) Cooper # (Auto) Eos # (Auto) Baso # (Auto) Absolute Neuts (auto) pO2 VBG pH VBG pCO2 VBG HCO3 VBG Total CO2 VBG O2 Sat (Calc) VBG Base Excess VBG Potassium Sodium Chloride Glucose Lactate FiO2 Potassium Carbon Dioxide Anion Gap BUN Creatinine Est GFR ( Amer) Est GFR (Non-Af Amer) POC Glucose (mg/dL) 192 H Random Glucose Calcium Magnesium Total Bilirubin AST ALT Alkaline Phosphatase Lactate Dehydrogenase Total Creatine Kinase CK-MB (CK-2) CK-MB (CK-2) % Troponin I Total Protein Albumin Globulin Albumin/Globulin Ratio Lipase Venous Blood Potassium Urine Color Urine Appearance Urine pH Ur Specific [place] Urine Protein Urine Glucose (UA) Urine Ketones Urine Blood Urine Nitrate Urine Bilirubin Urine Urobilinogen Ur Leukocyte Esterase Urine RBC Urine WBC Ur Epithelial Cells Urine Bacteria Urine Opiates Screen Urine Methadone Screen Ur Barbiturates Screen Ur Phencyclidine Scrn Ur Amphetamines Screen U Benzodiazepines Scrn U Oth Cocaine Metabols U Cannabinoids Screen Assessment & Plan - Assessment and Plan (Free Text) Assessment: SIRS 2/2 gastroparesis Asymptomatic bacteriurea - urine cx positive with gram neg reji Gastroparesis Type 1 diabetes Diabetic neuropathy GERD Diabetic foot ulcers PUD Continue with meropenem day 1 Follow-up septic work-up, urinalysis has been negative, urine cx positive with gram neg reji, f/u repeat cx Chest x-ray showed no active disease Follow-up cardiology and gastroenterology recommendations Continue to monitor for any changes Case and plan to be reviewed and discussed with Dr. Velazco <Clarke Velazco - Last Filed: 04/17/19 15:28> Meds - Medications Medications: Current Medications Amlodipine Besylate (Norvasc) 5 mg PO DAILY [facility] Last Admin: 04/17/19 09:48 Dose: 5 mg Docusate Sodium (Colace) 100 mg PO BID [facility] Last Admin: 04/17/19 09:48 Dose: 100 mg Meropenem (Merrem Iv 1 Gm Premix) 1 gm in 50 mls @ 100 mls/hr IVPB Q12 [facility]; Protocol Stop: 04/25/19 22:01 Last Admin: 04/17/19 09:49 Dose: 100 mls/hr Insulin Detemir (Levemir) 14 unit SC HS [facility] Last Admin: 04/16/19 23:33 Dose: 14 units Insulin Human Lispro (Humalog) 8 units SC ACTID [facility] Last Admin: 04/17/19 12:44 Dose: Not Given Ketorolac Tromethamine (Toradol) 30 mg IVP Q6H PRN PRN Reason: Pain, moderate (4-7) Last Admin: 04/16/19 21:53 Dose: 30 mg Lorazepam (Ativan) 0.5 mg PO BID [facility]; Protocol Last Admin: 04/17/19 09:45 Dose: 0.5 mg Metoprolol Tartrate (Lopressor) 50 mg PO BID [facility] Last Admin: 04/17/19 09:49 Dose: 50 mg Morphine Sulfate (Morphine) 2 mg IVP Q6H PRN PRN Reason: Pain, severe (8-10) Last Admin: 04/17/19 09:44 Dose: 2 mg Ondansetron HCl (Zofran Inj) 4 mg IVP Q4H PRN PRN Reason: Nausea/Vomiting Last Admin: 04/16/19 19:34 Dose: 4 mg Pantoprazole Sodium (Protonix Inj) 40 mg IVP DAILY [facility] Last Admin: 04/17/19 09:45 Dose: 40 mg Polyethylene Glycol (Miralax) 17 gm PO DAILY PRN PRN Reason: Constipation Potassium Chloride (K-Dur 20 Meq Er Tab) 20 meq PO DAILY [facility] Last Admin: 04/17/19 09:49 Dose: 20 meq Sucralfate (Carafate Tab) 1 gm PO 0700,1600 [facility] Results - Vital Signs Recent Vital Signs: Last Vital Signs Temp 97.6 F 04/17/19 12:00 Pulse 89 04/17/19 12:00 Resp 18 04/17/19 12:00 BP 105/67 04/17/19 12:00 Pulse Ox 98 04/17/19 06:00 - Labs Result Diagrams: 04/17/19 08:30 04/17/19 08:30 Labs: Laboratory Results - last 24 hr 04/16/19 04/16/19 04/16/19 16:08 16:10 16:10 WBC 18.6 H D RBC 4.54 Hgb 11.2 L Hct 35.0 L MCV 77.1 L MCH 24.7 L MCHC 32.0 RDW 16.5 H Plt Count 562 H MPV 8.6 Neut % (Auto) 87.1 H Lymph % (Auto) 9.0 L Cooper % (Auto) 3.8 Eos % (Auto) 0.1 L Baso % (Auto) 0.0 Lymph # (Auto) 1.7 Cooper # (Auto) 0.7 H Eos # (Auto) 0.0 Baso # (Auto) 0.00 Absolute Neuts (auto) 16.18 H pO2 41 VBG pH 7.39 VBG pCO2 44.0 VBG HCO3 26.6 VBG Total CO2 28.0 VBG O2 Sat (Calc) 75.7 H VBG Base Excess 1.2 VBG Potassium 4.1 Sodium 144.0 144 Chloride 108.0 H 104 Glucose 203 H Lactate 1.4 FiO2 21.0 Potassium 4.2 Carbon Dioxide 25 Anion Gap 18 BUN 30 H Creatinine 1.1 Est GFR ( Amer) > 60 Est GFR (Non-Af Amer) 54 POC Glucose (mg/dL) Random Glucose 200 H Calcium 10.0 Magnesium 2.0 Total Bilirubin 0.9 AST 25 ALT 17 Alkaline Phosphatase 158 H D Lactate Dehydrogenase 596 Total Creatine Kinase 254 H CK-MB (CK-2) 3.1 CK-MB (CK-2) % Cancelled Troponin I < 0.01 Total Protein 9.0 H Albumin 4.7 Globulin 4.3 Albumin/Globulin Ratio 1.1 Lipase 18 L Venous Blood Potassium 4.1 Urine Color Urine Appearance Urine pH Ur Specific [place] Urine Protein Urine Glucose (UA) Urine Ketones Urine Blood Urine Nitrate Urine Bilirubin Urine Urobilinogen Ur Leukocyte Esterase Urine RBC Urine WBC Ur Epithelial Cells Urine Bacteria Urine Opiates Screen Urine Methadone Screen Ur Barbiturates Screen Ur Phencyclidine Scrn Ur Amphetamines Screen U Benzodiazepines Scrn U Oth Cocaine Metabols U Cannabinoids Screen 04/16/19 04/16/19 04/16/19 17:00 17:00 21:42 WBC RBC Hgb Hct MCV MCH MCHC RDW Plt Count MPV Neut % (Auto) Lymph % (Auto) [place] % (Auto) Eos % (Auto) Baso % (Auto) Lymph # (Auto) [place] # (Auto) Eos # (Auto) Baso # (Auto) Absolute Neuts (auto) pO2 VBG pH VBG pCO2 VBG HCO3 VBG Total CO2 VBG O2 Sat (Calc) VBG Base Excess VBG Potassium Sodium Chloride Glucose Lactate FiO2 Potassium Carbon Dioxide Anion Gap BUN Creatinine Est GFR ( Amer) Est GFR (Non-Af Amer) POC Glucose (mg/dL) 192 H Random Glucose Calcium Magnesium Total Bilirubin AST ALT Alkaline Phosphatase Lactate Dehydrogenase Total Creatine Kinase CK-MB (CK-2) CK-MB (CK-2) % Troponin I Total Protein Albumin Globulin Albumin/Globulin Ratio Lipase Venous Blood Potassium Urine Color Yellow Urine Appearance Turbid Urine pH 6.0 Ur Specific [place] >= 1.030 Urine Protein 100 H Urine Glucose (UA) 500 H Urine Ketones >=80 Urine Blood Small H Urine Nitrate Negative Urine Bilirubin Small H Urine Urobilinogen 0.2 Ur Leukocyte Esterase Negative Urine RBC 0 - 2 Urine WBC 0 - 2 Ur Epithelial Cells Many H Urine Bacteria Many Urine Opiates Screen Negative Urine Methadone Screen Negative Ur Barbiturates Screen Negative Ur Phencyclidine Scrn Negative Ur Amphetamines Screen Negative U Benzodiazepines Scrn Negative U Oth Cocaine Metabols Negative U Cannabinoids Screen Negative 04/17/19 04/17/19 04/17/19 07:46 08:30 08:30 WBC 16.5 H RBC 4.27 Hgb 10.5 L Hct 33.5 L MCV 78.5 L MCH 24.6 L MCHC 31.3 RDW 17.0 H Plt Count 518 H MPV 8.6 Neut % (Auto) Lymph % (Auto) [place] % (Auto) Eos % (Auto) Baso % (Auto) Lymph # (Auto) [place] # (Auto) Eos # (Auto) Baso # (Auto) Absolute Neuts (auto) pO2 VBG pH VBG pCO2 VBG HCO3 VBG Total CO2 VBG O2 Sat (Calc) VBG Base Excess VBG Potassium Sodium 143 Chloride 111 H Glucose Lactate FiO2 Potassium 4.4 Carbon Dioxide 22 Anion Gap 14 BUN 38 H Creatinine 1.1 Est GFR ( Amer) > 60 Est GFR (Non-Af Amer) 54 POC Glucose (mg/dL) 273 H Random Glucose 279 H Calcium 8.9 Magnesium Total Bilirubin 0.9 AST 28 ALT 17 Alkaline Phosphatase 98 Lactate Dehydrogenase Total Creatine Kinase CK-MB (CK-2) CK-MB (CK-2) % Troponin I Total Protein 8.1 Albumin 4.3 Globulin 3.9 Albumin/Globulin Ratio 1.1 Lipase Venous Blood Potassium Urine Color Urine Appearance Urine pH Ur Specific [place] Urine Protein Urine Glucose (UA) Urine Ketones Urine Blood Urine Nitrate Urine Bilirubin Urine Urobilinogen Ur Leukocyte Esterase Urine RBC Urine WBC Ur Epithelial Cells Urine Bacteria Urine Opiates Screen Urine Methadone Screen Ur Barbiturates Screen Ur Phencyclidine Scrn Ur Amphetamines Screen U Benzodiazepines Scrn U Oth Cocaine Metabols U Cannabinoids Screen 04/17/19 11:25 WBC RBC Hgb Hct MCV MCH MCHC RDW Plt Count MPV Neut % (Auto) Lymph % (Auto) [place] % (Auto) Eos % (Auto) Baso % (Auto) Lymph # (Auto) [place] # (Auto) Eos # (Auto) Baso # (Auto) Absolute Neuts (auto) pO2 VBG pH VBG pCO2 VBG HCO3 VBG Total CO2 VBG O2 Sat (Calc) VBG Base Excess VBG Potassium Sodium Chloride Glucose Lactate FiO2 Potassium Carbon Dioxide Anion Gap BUN Creatinine Est GFR ( Amer) Est GFR (Non-Af Amer) POC Glucose (mg/dL) 181 H Random Glucose Calcium Magnesium Total Bilirubin AST ALT Alkaline Phosphatase Lactate Dehydrogenase Total Creatine Kinase CK-MB (CK-2) CK-MB (CK-2) % Troponin I Total Protein Albumin Globulin Albumin/Globulin Ratio Lipase Venous Blood Potassium Urine Color Urine Appearance Urine pH Ur Specific [place] Urine Protein Urine Glucose (UA) Urine Ketones Urine Blood Urine Nitrate Urine Bilirubin Urine Urobilinogen Ur Leukocyte Esterase Urine RBC Urine WBC Ur Epithelial Cells Urine Bacteria Urine Opiates Screen Urine Methadone Screen Ur Barbiturates Screen Ur Phencyclidine Scrn Ur Amphetamines Screen U Benzodiazepines Scrn U Oth Cocaine Metabols U Cannabinoids Screen Attending/Attestation - Attestation I have personally seen and examined this patient.: Yes I have fully participated in the care of the patient.: Yes I have reviewed all pertinent clinical information: Yes
[2019-04-17 09:01] LABS: ALB/GLOB RATIO 1.1 (1.1-1.8); ALBUMIN 4.3 g/dL (3.0-4.8); ALT/SGPT 17 U/L (7-56); AST/SGOT 28 U/L (14-36); BLOOD UREA NITROGEN 38 mg/dL (7-21); CALCIUM 8.9 mg/dL (8.4-10.5); GFR NON-AFRICAN AMERICAN 54
[2019-04-17] MEDS: Insulin Lispro 1 UNITS/0.01 ML SC SCH ×3 (09:41→17:05)
[2019-04-17] MEDS: Potassium Chloride 20 mEq ER Tab PO SCH (09:49)
[2019-04-17] MEDS: Meropenem IV 1 gm in NS 1 GM/50 ML BAG IVPB SCH ×2 (09:49→21:19)
--- NOTE | 2019-04-17 10:27 | CP.PCM.CON ---
<Jose Angel Candelario - Last Filed: 04/17/19 14:52> History of Present Illness - History of Present Illness History of Present Illness: PGY6 GI Fellow Consult Note Patient is a 44yo female with PMHx significant for ucnontrolled DM type 1 complicated by gastroparesis, PUD and HTN who presented to the ED with abdominal pain, nausea and vomiting. 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 At present, the patient is refusing to speak and only communicating through hand gestures and head nods for unclear reasons. For the last week she has had progressively worsening lower abdominal pain which has become stabbing in nature. As pain intensified, she developed nausea and vomiting prompting her visit to the ED. She admits to compliance with medications at home and notes she is using Zofran as needed for nausea/vomiting and refuses Reglan due to a stated allergy to the medication (claims it causes further vomiting). She denies fever, chills, change in bowel habits and notes her last stool was yesterday. Denies any sick contacts or recent travel. No new medications. 12 system ROS performed and negative except where stated PMHx: See HPI PSHx: Discussed with patient and she denies FHx: HTN, DM Social: Denies tobacco, EtOH or illicit drug use Endo: April 2017 @ [facility] with Dr Oleary - patient reported Botox injections for gastroparesis Past Patient History - Infectious Disease Hx of Infectious Diseases: None - Tetanus Immunizations Tetanus Immunization: Unknown - Past Social History Smoking Status: Never Smoked - CARDIAC Hx Cardiac Disorders: Yes Hx Hypertension: Yes - PULMONARY Hx Respiratory Disorders: No - NEUROLOGICAL Hx Neurological Disorder: Yes (NEUROPATHY) - HEENT Hx HEENT Problems: Yes Other/Comment: wears glasses-nearsighted - RENAL Hx Chronic Kidney Disease: No - ENDOCRINE/METABOLIC Hx Diabetes Mellitus Type 1: Yes (hx DKA) - HEMATOLOGICAL/ONCOLOGICAL Hx Anemia: Yes - INTEGUMENTARY Hx Dermatological Problems: Yes (hx diabetic foot ulcers) - MUSCULOSKELETAL/RHEUMATOLOGICAL Hx Falls: No - GASTROINTESTINAL Hx Gastrointestinal Disorders: Yes (gastritis,gastroparesis) Hx Gastroesophageal Reflux: Yes - GENITOURINARY/GYNECOLOGICAL Hx Urinary Tract Infection: Yes - PSYCHIATRIC Hx Psychophysiologic Disorder: Yes Hx Anxiety: Yes - SURGICAL HISTORY Hx Cardiac Catheterization: No Other/Comment: endoscopy with BOTOX - ANESTHESIA Hx Anesthesia: No Hx Anesthesia Reactions: No Hx Malignant Hyperthermia: No Meds Allergies/Adverse Reactions: Allergies Allergy/AdvReac Type Severity Reaction Status Date / Time metoclopramide HCl AdvReac VOMITING Verified 05/04/18 14:22 [From Reglan] - Medications Medications: Current Medications Amlodipine Besylate (Norvasc) 5 mg PO DAILY [facility] Last Admin: 04/17/19 09:48 Dose: 5 mg Docusate Sodium (Colace) 100 mg PO BID [facility] Last Admin: 04/17/19 09:48 Dose: 100 mg Meropenem (Merrem Iv 1 Gm Premix) 1 gm in 50 mls @ 100 mls/hr IVPB Q12 [facility]; Protocol Stop: 04/25/19 22:01 Last Admin: 04/17/19 09:49 Dose: 100 mls/hr Insulin Detemir (Levemir) 14 unit SC HS [facility] Last Admin: 04/16/19 23:33 Dose: 14 units Insulin Human Lispro (Humalog) 8 units SC ACTID [facility] Last Admin: 04/17/19 09:41 Dose: 8 units Ketorolac Tromethamine (Toradol) 30 mg IVP Q6H PRN PRN Reason: Pain, moderate (4-7) Last Admin: 04/16/19 21:53 Dose: 30 mg Lorazepam (Ativan) 0.5 mg PO BID [facility]; Protocol Last Admin: 04/17/19 09:45 Dose: 0.5 mg Metoprolol Tartrate (Lopressor) 50 mg PO BID [facility] Last Admin: 04/17/19 09:49 Dose: 50 mg Morphine Sulfate (Morphine) 2 mg IVP Q6H PRN PRN Reason: Pain, severe (8-10) Last Admin: 04/17/19 09:44 Dose: 2 mg Ondansetron HCl (Zofran Inj) 4 mg IVP Q4H PRN PRN Reason: Nausea/Vomiting Last Admin: 04/16/19 19:34 Dose: 4 mg Pantoprazole Sodium (Protonix Inj) 40 mg IVP DAILY [facility] Last Admin: 04/17/19 09:45 Dose: 40 mg Polyethylene Glycol (Miralax) 17 gm PO DAILY PRN PRN Reason: Constipation Potassium Chloride (K-Dur 20 Meq Er Tab) 20 meq PO DAILY [facility] Last Admin: 04/17/19 09:49 Dose: 20 meq Sucralfate (Carafate Tab) 1 gm PO 0700,1600 [facility] Physical Exam - Constitutional Appears: Chronically Ill, Other (uncomfortable) - Eye Exam Eye Exam: PERRL Additional comments: no cooperative with EOM exam - ENT Exam ENT Exam: Mucous Membranes Moist - Respiratory Exam Respiratory Exam: Clear to Auscultation Bilateral. absent: Rales, Rhonchi, Wheezes - Cardiovascular Exam Cardiovascular Exam: RRR, +S1, +S2 - GI/Abdominal Exam GI & Abdominal Exam: Guarding, Normal Bowel Sounds, Soft, Tenderness (LLQ/RLQ). absent: Distended, Firm, Organomegaly, Rigid - Extremities Exam Extremities exam: Positive for: normal inspection. Negative for: pedal edema - Neurological Exam Neurological exam: Alert, Oriented x3 - Psychiatric Exam Psychiatric exam: Normal Affect, Normal Mood - Skin Skin Exam: Dry, Warm Results - Vital Signs Recent Vital Signs: Last Vital Signs Temp 98.1 F 04/17/19 06:00 Pulse 127 H 04/17/19 09:49 Resp 20 04/17/19 06:00 BP 134/68 04/17/19 09:49 Pulse Ox 98 04/17/19 06:00 - Labs Result Diagrams: 04/17/19 08:30 04/17/19 08:30 Labs: Laboratory Results - last 24 hr 04/16/19 04/16/19 04/16/19 15:16 16:08 16:10 WBC 18.6 H D RBC 4.54 Hgb 11.2 L Hct 35.0 L MCV 77.1 L MCH 24.7 L MCHC 32.0 RDW 16.5 H Plt Count 562 H MPV 8.6 Neut % (Auto) 87.1 H Lymph % (Auto) 9.0 L [place] % (Auto) 3.8 Eos % (Auto) 0.1 L Baso % (Auto) 0.0 Lymph # (Auto) 1.7 [place] # (Auto) 0.7 H Eos # (Auto) 0.0 Baso # (Auto) 0.00 Absolute Neuts (auto) 16.18 H pO2 41 VBG pH 7.39 VBG pCO2 44.0 VBG HCO3 26.6 VBG Total CO2 28.0 VBG O2 Sat (Calc) 75.7 H VBG Base Excess 1.2 VBG Potassium 4.1 Sodium 144.0 Chloride 108.0 H Glucose 203 H Lactate 1.4 FiO2 21.0 Potassium Carbon Dioxide Anion Gap BUN Creatinine Est GFR ( Amer) Est GFR (Non-Af Amer) POC Glucose (mg/dL) 165 H Random Glucose Calcium Magnesium Total Bilirubin AST ALT Alkaline Phosphatase Lactate Dehydrogenase Total Creatine Kinase CK-MB (CK-2) CK-MB (CK-2) % Troponin I Total Protein Albumin Globulin Albumin/Globulin Ratio Lipase Venous Blood Potassium 4.1 Urine Color Urine Appearance Urine pH Ur Specific [place] Urine Protein Urine Glucose (UA) Urine Ketones Urine Blood Urine Nitrate Urine Bilirubin Urine Urobilinogen Ur Leukocyte Esterase Urine RBC Urine WBC Ur Epithelial Cells Urine Bacteria Urine Opiates Screen Urine Methadone Screen Ur Barbiturates Screen Ur Phencyclidine Scrn Ur Amphetamines Screen U Benzodiazepines Scrn U Oth Cocaine Metabols U Cannabinoids Screen 04/16/19 04/16/19 04/16/19 16:10 17:00 17:00 WBC RBC Hgb Hct MCV MCH MCHC RDW Plt Count MPV Neut % (Auto) Lymph % (Auto) [place] % (Auto) Eos % (Auto) Baso % (Auto) Lymph # (Auto) [place] # (Auto) Eos # (Auto) Baso # (Auto) Absolute Neuts (auto) pO2 VBG pH VBG pCO2 VBG HCO3 VBG Total CO2 VBG O2 Sat (Calc) VBG Base Excess VBG Potassium Sodium 144 Chloride 104 Glucose Lactate FiO2 Potassium 4.2 Carbon Dioxide 25 Anion Gap 18 BUN 30 H Creatinine 1.1 Est GFR ( Amer) > 60 Est GFR (Non-Af Amer) 54 POC Glucose (mg/dL) Random Glucose 200 H Calcium 10.0 Magnesium 2.0 Total Bilirubin 0.9 AST 25 ALT 17 Alkaline Phosphatase 158 H D Lactate Dehydrogenase 596 Total Creatine Kinase 254 H CK-MB (CK-2) 3.1 CK-MB (CK-2) % Cancelled Troponin I < 0.01 Total Protein 9.0 H Albumin 4.7 Globulin 4.3 Albumin/Globulin Ratio 1.1 Lipase 18 L Venous Blood Potassium Urine Color Yellow Urine Appearance Turbid Urine pH 6.0 Ur Specific [place] >= 1.030 Urine Protein 100 H Urine Glucose (UA) 500 H Urine Ketones >=80 Urine Blood Small H Urine Nitrate Negative Urine Bilirubin Small H Urine Urobilinogen 0.2 Ur Leukocyte Esterase Negative Urine RBC 0 - 2 Urine WBC 0 - 2 Ur Epithelial Cells Many H Urine Bacteria Many Urine Opiates Screen Negative Urine Methadone Screen Negative Ur Barbiturates Screen Negative Ur Phencyclidine Scrn Negative Ur Amphetamines Screen Negative U Benzodiazepines Scrn Negative U Oth Cocaine Metabols Negative U Cannabinoids Screen Negative 04/16/19 04/17/19 04/17/19 21:42 08:30 08:30 WBC 16.5 H RBC 4.27 Hgb 10.5 L Hct 33.5 L MCV 78.5 L MCH 24.6 L MCHC 31.3 RDW 17.0 H Plt Count 518 H MPV 8.6 Neut % (Auto) Lymph % (Auto) [place] % (Auto) Eos % (Auto) Baso % (Auto) Lymph # (Auto) [place] # (Auto) Eos # (Auto) Baso # (Auto) Absolute Neuts (auto) pO2 VBG pH VBG pCO2 VBG HCO3 VBG Total CO2 VBG O2 Sat (Calc) VBG Base Excess VBG Potassium Sodium 143 Chloride 111 H Glucose Lactate FiO2 Potassium 4.4 Carbon Dioxide 22 Anion Gap 14 BUN 38 H Creatinine 1.1 Est GFR ( Amer) > 60 Est GFR (Non-Af Amer) 54 POC Glucose (mg/dL) 192 H Random Glucose 279 H Calcium 8.9 Magnesium Total Bilirubin 0.9 AST 28 ALT 17 Alkaline Phosphatase 98 Lactate Dehydrogenase Total Creatine Kinase CK-MB (CK-2) CK-MB (CK-2) % Troponin I Total Protein 8.1 Albumin 4.3 Globulin 3.9 Albumin/Globulin Ratio 1.1 Lipase Venous Blood Potassium Urine Color Urine Appearance Urine pH Ur Specific [place] Urine Protein Urine Glucose (UA) Urine Ketones Urine Blood Urine Nitrate Urine Bilirubin Urine Urobilinogen Ur Leukocyte Esterase Urine RBC Urine WBC Ur Epithelial Cells Urine Bacteria Urine Opiates Screen Urine Methadone Screen Ur Barbiturates Screen Ur Phencyclidine Scrn Ur Amphetamines Screen U Benzodiazepines Scrn U Oth Cocaine Metabols U Cannabinoids Screen Assessment & Plan - Assessment and Plan (Free Text) Assessment: Patient is a 44yo female with PMHx significant for ucnontrolled DM type 1 complicated by gastroparesis, PUD and HTN who presented to the ED with abdominal pain, nausea and vomiting -Abdominal pain, presumed to be 2/2 recurrent exacerbation of gastroparesis -Leukocytosis, presumed UTI -Uncontrolled DM1 -Chronic microcytic anemia Plan: -Awaiting infectious work up - blood/urine cx -On antibiotic therapy with ID following - was on Ceftriaxone, now Merrem -IV PPI QAM -Carafate ordered - home medication - h/o PUD -Refusing Reglan despite explanation that vomiting was more likely a result of disease process than medication effect -Zofran PRN -Consider addition of Erythromycin for prokinetic effect -Outpatient follow up with established gatroenterologist scheduled for 04/25/19 -Advance diet as tolerated; liquids for now -Tight glycemic control - A1c never below 10; in setting on ongoing anemia likely underestimated -Would discontinue Toradol with known PUD history -Bowel regimen as ordered - Date & Time Date: 04/17/19 Time: 07:15 <Maxime Wong - Last Filed: 04/17/19 15:33> Meds - Medications Medications: Current Medications Amlodipine Besylate (Norvasc) 5 mg PO DAILY [facility] Last Admin: 04/17/19 09:48 Dose: 5 mg Docusate Sodium (Colace) 100 mg PO BID [facility] Last Admin: 04/17/19 09:48 Dose: 100 mg Meropenem (Merrem Iv 1 Gm Premix) 1 gm in 50 mls @ 100 mls/hr IVPB Q12 [facility]; Protocol Stop: 04/25/19 22:01 Last Admin: 04/17/19 09:49 Dose: 100 mls/hr Insulin Detemir (Levemir) 14 unit SC HS [facility] Last Admin: 04/16/19 23:33 Dose: 14 units Insulin Human Lispro (Humalog) 8 units SC ACTID [facility] Last Admin: 04/17/19 12:44 Dose: Not Given Ketorolac Tromethamine (Toradol) 30 mg IVP Q6H PRN PRN Reason: Pain, moderate (4-7) Last Admin: 04/16/19 21:53 Dose: 30 mg Lorazepam (Ativan) 0.5 mg PO BID [facility]; Protocol Last Admin: 04/17/19 09:45 Dose: 0.5 mg Metoprolol Tartrate (Lopressor) 50 mg PO BID [facility] Last Admin: 04/17/19 09:49 Dose: 50 mg Morphine Sulfate (Morphine) 2 mg IVP Q6H PRN PRN Reason: Pain, severe (8-10) Last Admin: 04/17/19 09:44 Dose: 2 mg Ondansetron HCl (Zofran Inj) 4 mg IVP Q4H PRN PRN Reason: Nausea/Vomiting Last Admin: 04/16/19 19:34 Dose: 4 mg Pantoprazole Sodium (Protonix Inj) 40 mg IVP DAILY [facility] Last Admin: 04/17/19 09:45 Dose: 40 mg Polyethylene Glycol (Miralax) 17 gm PO DAILY PRN PRN Reason: Constipation Potassium Chloride (K-Dur 20 Meq Er Tab) 20 meq PO DAILY [facility] Last Admin: 04/17/19 09:49 Dose: 20 meq Sucralfate (Carafate Tab) 1 gm PO 0700,1600 [facility] Results - Vital Signs Recent Vital Signs: Last Vital Signs Temp 97.6 F 04/17/19 12:00 Pulse 89 04/17/19 12:00 Resp 18 04/17/19 12:00 BP 105/67 04/17/19 12:00 Pulse Ox 98 04/17/19 06:00 - Labs Result Diagrams: 04/17/19 08:30 04/17/19 08:30 Labs: Laboratory Results - last 24 hr 04/16/19 04/16/19 04/16/19 16:08 16:10 16:10 WBC 18.6 H D RBC 4.54 Hgb 11.2 L Hct 35.0 L MCV 77.1 L MCH 24.7 L MCHC 32.0 RDW 16.5 H Plt Count 562 H MPV 8.6 Neut % (Auto) 87.1 H Lymph % (Auto) 9.0 L [place] % (Auto) 3.8 Eos % (Auto) 0.1 L Baso % (Auto) 0.0 Lymph # (Auto) 1.7 [place] # (Auto) 0.7 H Eos # (Auto) 0.0 Baso # (Auto) 0.00 Absolute Neuts (auto) 16.18 H pO2 41 VBG pH 7.39 VBG pCO2 44.0 VBG HCO3 26.6 VBG Total CO2 28.0 VBG O2 Sat (Calc) 75.7 H VBG Base Excess 1.2 VBG Potassium 4.1 Sodium 144.0 144 Chloride 108.0 H 104 Glucose 203 H Lactate 1.4 FiO2 21.0 Potassium 4.2 Carbon Dioxide 25 Anion Gap 18 BUN 30 H Creatinine 1.1 Est GFR ( Amer) > 60 Est GFR (Non-Af Amer) 54 POC Glucose (mg/dL) Random Glucose 200 H Calcium 10.0 Magnesium 2.0 Total Bilirubin 0.9 AST 25 ALT 17 Alkaline Phosphatase 158 H D Lactate Dehydrogenase 596 Total Creatine Kinase 254 H CK-MB (CK-2) 3.1 CK-MB (CK-2) % Cancelled Troponin I < 0.01 Total Protein 9.0 H Albumin 4.7 Globulin 4.3 Albumin/Globulin Ratio 1.1 Lipase 18 L Venous Blood Potassium 4.1 Urine Color Urine Appearance Urine pH Ur Specific [place] Urine Protein Urine Glucose (UA) Urine Ketones Urine Blood Urine Nitrate Urine Bilirubin Urine Urobilinogen Ur Leukocyte Esterase Urine RBC Urine WBC Ur Epithelial Cells Urine Bacteria Urine Opiates Screen Urine Methadone Screen Ur Barbiturates Screen Ur Phencyclidine Scrn Ur Amphetamines Screen U Benzodiazepines Scrn U Oth Cocaine Metabols U Cannabinoids Screen 04/16/19 04/16/19 04/16/19 17:00 17:00 21:42 WBC RBC Hgb Hct MCV MCH MCHC RDW Plt Count MPV Neut % (Auto) Lymph % (Auto) [place] % (Auto) Eos % (Auto) Baso % (Auto) Lymph # (Auto) [place] # (Auto) Eos # (Auto) Baso # (Auto) Absolute Neuts (auto) pO2 VBG pH VBG pCO2 VBG HCO3 VBG Total CO2 VBG O2 Sat (Calc) VBG Base Excess VBG Potassium Sodium Chloride Glucose Lactate FiO2 Potassium Carbon Dioxide Anion Gap BUN Creatinine Est GFR ( Amer) Est GFR (Non-Af Amer) POC Glucose (mg/dL) 192 H Random Glucose Calcium Magnesium Total Bilirubin AST ALT Alkaline Phosphatase Lactate Dehydrogenase Total Creatine Kinase CK-MB (CK-2) CK-MB (CK-2) % Troponin I Total Protein Albumin Globulin Albumin/Globulin Ratio Lipase Venous Blood Potassium Urine Color Yellow Urine Appearance Turbid Urine pH 6.0 Ur Specific [place] >= 1.030 Urine Protein 100 H Urine Glucose (UA) 500 H Urine Ketones >=80 Urine Blood Small H Urine Nitrate Negative Urine Bilirubin Small H Urine Urobilinogen 0.2 Ur Leukocyte Esterase Negative Urine RBC 0 - 2 Urine WBC 0 - 2 Ur Epithelial Cells Many H Urine Bacteria Many Urine Opiates Screen Negative Urine Methadone Screen Negative Ur Barbiturates Screen Negative Ur Phencyclidine Scrn Negative Ur Amphetamines Screen Negative U Benzodiazepines Scrn Negative U Oth Cocaine Metabols Negative U Cannabinoids Screen Negative 04/17/19 04/17/19 04/17/19 07:46 08:30 08:30 WBC 16.5 H RBC 4.27 Hgb 10.5 L Hct 33.5 L MCV 78.5 L MCH 24.6 L MCHC 31.3 RDW 17.0 H Plt Count 518 H MPV 8.6 Neut % (Auto) Lymph % (Auto) [place] % (Auto) Eos % (Auto) Baso % (Auto) Lymph # (Auto) [place] # (Auto) Eos # (Auto) Baso # (Auto) Absolute Neuts (auto) pO2 VBG pH VBG pCO2 VBG HCO3 VBG Total CO2 VBG O2 Sat (Calc) VBG Base Excess VBG Potassium Sodium 143 Chloride 111 H Glucose Lactate FiO2 Potassium 4.4 Carbon Dioxide 22 Anion Gap 14 BUN 38 H Creatinine 1.1 Est GFR ( Amer) > 60 Est GFR (Non-Af Amer) 54 POC Glucose (mg/dL) 273 H Random Glucose 279 H Calcium 8.9 Magnesium Total Bilirubin 0.9 AST 28 ALT 17 Alkaline Phosphatase 98 Lactate Dehydrogenase Total Creatine Kinase CK-MB (CK-2) CK-MB (CK-2) % Troponin I Total Protein 8.1 Albumin 4.3 Globulin 3.9 Albumin/Globulin Ratio 1.1 Lipase Venous Blood Potassium Urine Color Urine Appearance Urine pH Ur Specific [place] Urine Protein Urine Glucose (UA) Urine Ketones Urine Blood Urine Nitrate Urine Bilirubin Urine Urobilinogen Ur Leukocyte Esterase Urine RBC Urine WBC Ur Epithelial Cells Urine Bacteria Urine Opiates Screen Urine Methadone Screen Ur Barbiturates Screen Ur Phencyclidine Scrn Ur Amphetamines Screen U Benzodiazepines Scrn U Oth Cocaine Metabols U Cannabinoids Screen 04/17/19 11:25 WBC RBC Hgb Hct MCV MCH MCHC RDW Plt Count MPV Neut % (Auto) Lymph % (Auto) [place] % (Auto) Eos % (Auto) Baso % (Auto) Lymph # (Auto) [place] # (Auto) Eos # (Auto) Baso # (Auto) Absolute Neuts (auto) pO2 VBG pH VBG pCO2 VBG HCO3 VBG Total CO2 VBG O2 Sat (Calc) VBG Base Excess VBG Potassium Sodium Chloride Glucose Lactate FiO2 Potassium Carbon Dioxide Anion Gap BUN Creatinine Est GFR ( Amer) Est GFR (Non-Af Amer) POC Glucose (mg/dL) 181 H Random Glucose Calcium Magnesium Total Bilirubin AST ALT Alkaline Phosphatase Lactate Dehydrogenase Total Creatine Kinase CK-MB (CK-2) CK-MB (CK-2) % Troponin I Total Protein Albumin Globulin Albumin/Globulin Ratio Lipase Venous Blood Potassium Urine Color Urine Appearance Urine pH Ur Specific [place] Urine Protein Urine Glucose (UA) Urine Ketones Urine Blood Urine Nitrate Urine Bilirubin Urine Urobilinogen Ur Leukocyte Esterase Urine RBC Urine WBC Ur Epithelial Cells Urine Bacteria Urine Opiates Screen Urine Methadone Screen Ur Barbiturates Screen Ur Phencyclidine Scrn Ur Amphetamines Screen U Benzodiazepines Scrn U Oth Cocaine Metabols U Cannabinoids Screen Attending/Attestation - Attestation I have fully participated in the care of the patient.: Yes I have reviewed all pertinent clinical information: Yes Notes (Text): 04/17/19 15:30 DM/HTN PUD Gastroparesis, abdominal pain UTI - Liquid diet as tolerated - Continue with antibiotic therapy as per ID, awaiting urine culture results (prelim gram negative rods) - Anti-emetic therapy PRN - Strict glycemic control - Will continue to monitor patient clinical course
--- NOTE | 2019-04-17 11:18 | PN ---
DATE: 04/17/2019 SUBJECTIVE: She is sitting up, writhing in bed, still not doing well. She has also abdominal pain, nauseous, did not throw up though, not hungry at all. MEDICATIONS: She is on Ativan, Benadryl, Carafate, Colace, insulin, potassium, Levemir, Lopressor, Merrem IV, MiraLax, morphine for the pain, Norvasc, Protonix, Rocephin, Toradol and Zofran. PHYSICAL EXAMINATION: VITAL SIGNS: She has a 98.2 temp, 121 pulse, 155/90 blood pressure, 18 respiratory rate and 97% O2 sat on room air. HEENT: Head is atraumatic and normocephalic. HEART: Regular rate. LUNGS: Decreased breath sounds, but clear. ABDOMEN: Decreased bowel sounds, mildly distended. No guarding. No rebound. EXTREMITIES: No edema. She is still on metoprolol. LABORATORY DATA: The labs from this morning are not back yet, there was an 18,000 white count yesterday with many bacteria in the urine. ASSESSMENT AND PLAN: I do not know why they put her in an out, I told them to put her in as an in and change it to inpatient today. We will continue with IV antibiotics. Await labs this morning. Check her labs tomorrow. I put her on clear fluids to see if she will try and drink something, but she is nauseous and she tells me she does not want to eat. We will continue with regular treatment and care. She has a leukocytosis and abdominal pain. Urinary tract infection, possible tachycardia, possible gastroparesis. Again, she has had that before. David Theodore DO
[2019-04-17] MEDS ORDERED: Morphine 2 mg/ml ISec IVP STA (20:57)
[2019-04-17 21:02] LABS: URINE BILIRUBIN SMALL (NEGATIVE); URINE BLOOD TRACE-LYSED (NEGATIVE); URINE GLUCOSE (UA) 100 mg/dL (NEGATIVE); URINE LEUKOCYTE ESTERASE TRACE Leu/uL (NEGATIVE); URINE PROTEIN 100 mg/dL (<30 mg/dL); URINE UROBILINOGEN 0.2 E.U./dL (<1 E.U./dL)
[2019-04-17 21:05] LABS: URINE APPEARANCE SL CLOUDY (CLEAR); URINE COLOR YELLOW (YELLOW)
[2019-04-17 21:32] LABS: URINE BACTERIA MOD /hpf
[2019-04-17] MEDS: Insulin Detemir 100 units/ml Vial (Levemir) SC SCH (21:33)
[2019-04-18 07:14] LABS: HEMOGLOBIN 9.9 g/dL (12.0-16.0); MEAN CELL VOLUME 78.9 fl (80.0-105.0); MEAN CORPUSCULAR HGB CONC 30.4 g/dl (31.0-37.0); MEAN PLATELET VOLUME 8.7 fl (7.0-11.0); RBC 4.13 10^6/uL (3.5-6.1); WHITE BLOOD COUNT 9.5 10^3/uL (4.5-11.0)
[2019-04-18 07:38] LABS: ALB/GLOB RATIO 1.1 (1.1-1.8); ALT/SGPT 22 U/L (7-56); AST/SGOT 25 U/L (14-36); BLOOD UREA NITROGEN 30 mg/dL (7-21); CALCIUM 8.9 mg/dL (8.4-10.5); GFR NON-AFRICAN AMERICAN > 60
--- NOTE | 2019-04-18 07:46 | CP.PCM.PN ---
<Russell Astorga - Last Filed: 04/18/19 12:27> Subjective - Date & Time of Evaluation Date of Evaluation: 04/18/19 Time of Evaluation: 08:50 - Subjective Subjective: Infectious disease progress note: Pt seen and examined at bedside. No acute events overnight. States that her abdominal pain has improved. No urinary symptoms. . No fevers or chills. 12 Point ROS performed and neg other than stated above Objective - Vital Signs/Intake and Output Vital Signs (last 24 hours): Temp Pulse Resp BP Pulse Ox 97.8 F 112 H 18 146/78 98 04/17/19 17:55 04/17/19 17:55 04/17/19 17:55 04/17/19 17:55 04/17/19 06:00 Intake and Output: 04/18/19 04/18/19 06:59 18:59 Intake Total 1140 Balance 1140 - Medications Medications: Current Medications Amlodipine Besylate (Norvasc) 5 mg PO DAILY [facility] Last Admin: 04/17/19 09:48 Dose: 5 mg Docusate Sodium (Colace) 100 mg PO BID [facility] Last Admin: 04/17/19 17:05 Dose: 100 mg Meropenem (Merrem Iv 1 Gm Premix) 1 gm in 50 mls @ 100 mls/hr IVPB Q12 [facility]; Protocol Stop: 04/25/19 22:01 Last Admin: 04/17/19 21:19 Dose: 100 mls/hr Insulin Detemir (Levemir) 14 unit SC HS [facility] Last Admin: 04/17/19 21:33 Dose: 14 units Insulin Human Lispro (Humalog) 8 units SC ACTID [facility] Last Admin: 04/17/19 17:05 Dose: 8 units Ketorolac Tromethamine (Toradol) 30 mg IVP Q6H PRN PRN Reason: Pain, moderate (4-7) Last Admin: 04/17/19 21:19 Dose: 30 mg Lorazepam (Ativan) 0.5 mg PO BID [facility]; Protocol Last Admin: 04/17/19 17:05 Dose: 0.5 mg Metoprolol Tartrate (Lopressor) 50 mg PO BID [facility] Last Admin: 04/17/19 17:06 Dose: 50 mg Morphine Sulfate (Morphine) 2 mg IVP Q6H PRN PRN Reason: Pain, severe (8-10) Last Admin: 04/17/19 16:30 Dose: 2 mg Ondansetron HCl (Zofran Inj) 4 mg IVP Q4H PRN PRN Reason: Nausea/Vomiting Last Admin: 04/16/19 19:34 Dose: 4 mg Pantoprazole Sodium (Protonix Inj) 40 mg IVP DAILY [facility] Last Admin: 04/17/19 09:45 Dose: 40 mg Polyethylene Glycol (Miralax) 17 gm PO DAILY PRN PRN Reason: Constipation Potassium Chloride (K-Dur 20 Meq Er Tab) 20 meq PO DAILY [facility] Last Admin: 04/17/19 09:49 Dose: 20 meq Sucralfate (Carafate Tab) 1 gm PO 0600,1600 [facility] Last Admin: 04/18/19 05:12 Dose: 1 gm - Labs Labs: 04/18/19 07:00 04/18/19 07:00 - Constitutional Appears: No Acute Distress - Eye Exam Eye Exam: EOMI - ENT Exam ENT Exam: Mucous Membranes Moist - Respiratory Exam Respiratory Exam: Clear to Ausculation Bilateral. absent: Rales, Rhonchi, Wheezes - Cardiovascular Exam Cardiovascular Exam: REGULAR RHYTHM, +S1, +S2 - GI/Abdominal Exam GI & Abdominal Exam: Soft. absent: Tenderness - Extremities Exam Extremities Exam: absent: Calf Tenderness, Pedal Edema - Neurological Exam Neurological Exam: Alert, Awake - Psychiatric Exam Psychiatric exam: Normal Mood - Skin Skin Exam: Dry, Normal Color, Warm Assessment and Plan - Assessment and Plan (Free Text) Assessment: SIRS 2/2 gastroparesis Asymptomatic bacteriurea - urine cx positive with E.coli Gastroparesis Type 1 diabetes Diabetic neuropathy GERD Diabetic foot ulcers PUD No evidence of infection. D/c meropenem Follow-up septic work-up, urinalysis has been negative, urine cx positive with E.coli Urinalysis from yesterday was positive, f/u repeat cx Chest x-ray showed no active disease Follow-up cardiology and gastroenterology recommendations Continue to monitor for any changes Case and plan to be reviewed and discussed with Dr. Velazco <Clarke Velazco - Last Filed: 04/18/19 12:30> Objective - Vital Signs/Intake and Output Vital Signs (last 24 hours): Temp Pulse Resp BP Pulse Ox 97.9 F 112 H 20 129/74 98 04/18/19 06:00 04/18/19 11:31 04/18/19 06:00 04/18/19 11:31 04/18/19 06:00 Intake and Output: 04/18/19 04/18/19 06:59 18:59 Intake Total 1140 Balance 1140 - Medications Medications: Current Medications Amlodipine Besylate (Norvasc) 5 mg PO DAILY [facility] Last Admin: 04/18/19 11:31 Dose: 5 mg Docusate Sodium (Colace) 100 mg PO BID [facility] Last Admin: 04/18/19 11:30 Dose: 100 mg Insulin Detemir (Levemir) 14 unit SC HS [facility] Last Admin: 04/17/19 21:33 Dose: 14 units Insulin Human Lispro (Humalog) 8 units SC ACTID [facility] Last Admin: 04/18/19 12:21 Dose: Not Given Ketorolac Tromethamine (Toradol) 30 mg IVP Q6H PRN PRN Reason: Pain, moderate (4-7) Last Admin: 04/17/19 21:19 Dose: 30 mg Lorazepam (Ativan) 0.5 mg PO BID [facility]; Protocol Last Admin: 04/18/19 11:31 Dose: 0.5 mg Metoprolol Tartrate (Lopressor) 50 mg PO BID [facility] Last Admin: 04/18/19 11:30 Dose: 50 mg Morphine Sulfate (Morphine) 2 mg IVP Q6H PRN PRN Reason: Pain, severe (8-10) Last Admin: 04/18/19 10:01 Dose: 2 mg Ondansetron HCl (Zofran Inj) 4 mg IVP Q4H PRN PRN Reason: Nausea/Vomiting Last Admin: 04/18/19 10:06 Dose: 4 mg Pantoprazole Sodium (Protonix Ec Tab) 40 mg PO ACB [facility] Polyethylene Glycol (Miralax) 17 gm PO DAILY PRN PRN Reason: Constipation Potassium Chloride (K-Dur 20 Meq Er Tab) 20 meq PO DAILY [facility] Last Admin: 04/18/19 11:31 Dose: 20 meq Sucralfate (Carafate Tab) 1 gm PO 0600,1600 [facility] Last Admin: 04/18/19 05:12 Dose: 1 gm - Labs Labs: 04/18/19 07:00 04/18/19 07:00 Attending/Attestation - Attestation I have personally seen and examined this patient.: Yes I have fully participated in the care of the patient.: Yes I have reviewed all pertinent clinical information, including history, physical exam and plan: Yes
[2019-04-18] MEDS: Insulin Lispro 1 UNITS/0.01 ML SC SCH ×3 (08:15→17:54)
--- NOTE | 2019-04-18 09:46 | CON ---
DATE OF CONSULTATION: 04/17/2019 HISTORY: The patient is a 44-year-old woman, who presents with epigastric discomfort as well as atypical chest pain. PAST MEDICAL HISTORY: The patient's past medical history includes diabetes mellitus, documented gastroparesis. She has received Botox injections at [facility]. She was found to be tachycardic, which was improved after beta blockers. Her last echocardiogram revealed good LV function. Currently, the patient refuses to give a history. For review of systems, she is not interested in giving a history. PHYSICAL EXAMINATION VITAL SIGNS: Blood pressure is 146/76. NECK: Negative JVD. LUNGS: Without rales. CARDIAC: Heart rate S1, S2. EXTREMITIES: Without edema. LABORATORY DATA: Laboratories include an EKG that shows an improved heart rate with beta blockers. Hemoglobin is 9.9. Chemistries, BUN and creatinine are unremarkable. The glucose is 279. IMPRESSION: 1. Epigastric discomfort. 2. Gastroparesis. 3. Diabetes mellitus. 4. Anemia. 5. Negative troponins. PLAN: Given these findings, the patient's symptoms are not of cardiac origin. We will continue the beta blockers. We will DC telemetry today. Jim Field MD
[2019-04-18] MEDS: Morphine 2 mg/ml ISec IVP PRN ×3 (10:01→23:28)
[2019-04-18] MEDS: Meropenem IV 1 gm in NS 1 GM/50 ML BAG IVPB SCH (10:03)
[2019-04-18] MEDS: Potassium Chloride 20 mEq ER Tab PO SCH (11:31)
--- NOTE | 2019-04-18 11:34 | CP.PCM.PN ---
<Jose Angel Candelario - Last Filed: 04/18/19 11:44> Subjective - Date & Time of Evaluation Date of Evaluation: 04/18/19 Time of Evaluation: 07:10 - Subjective Subjective: PGY6 GI Fellow Progress Note Patient seen and examined bedside this morning. The patient states she is feeling better today and is more verbal than yesterday. Tolerated some liquid breakfast but doesn't have significant appetite. No nausea/vomiting presently. 12 system ROS performed and negative except where stated Objective - Vital Signs/Intake and Output Vital Signs (last 24 hours): Temp Pulse Resp BP Pulse Ox 97.9 F 117 H 20 163/92 H 98 04/18/19 06:00 04/18/19 06:00 04/18/19 06:00 04/18/19 06:00 04/18/19 06:00 Intake and Output: 04/18/19 04/18/19 06:59 18:59 Intake Total 1140 Balance 1140 - Medications Medications: Current Medications Amlodipine Besylate (Norvasc) 5 mg PO DAILY [facility] Last Admin: 04/17/19 09:48 Dose: 5 mg Docusate Sodium (Colace) 100 mg PO BID [facility] Last Admin: 04/17/19 17:05 Dose: 100 mg Meropenem (Merrem Iv 1 Gm Premix) 1 gm in 50 mls @ 100 mls/hr IVPB Q12 [facility]; Protocol Stop: 04/25/19 22:01 Last Admin: 04/18/19 10:03 Dose: 100 mls/hr Insulin Detemir (Levemir) 14 unit SC HS [facility] Last Admin: 04/17/19 21:33 Dose: 14 units Insulin Human Lispro (Humalog) 8 units SC ACTID [facility] Last Admin: 04/18/19 08:15 Dose: 8 units Ketorolac Tromethamine (Toradol) 30 mg IVP Q6H PRN PRN Reason: Pain, moderate (4-7) Last Admin: 04/17/19 21:19 Dose: 30 mg Lorazepam (Ativan) 0.5 mg PO BID [facility]; Protocol Last Admin: 04/17/19 17:05 Dose: 0.5 mg Metoprolol Tartrate (Lopressor) 50 mg PO BID [facility] Last Admin: 04/17/19 17:06 Dose: 50 mg Morphine Sulfate (Morphine) 2 mg IVP Q6H PRN PRN Reason: Pain, severe (8-10) Last Admin: 04/18/19 10:01 Dose: 2 mg Ondansetron HCl (Zofran Inj) 4 mg IVP Q4H PRN PRN Reason: Nausea/Vomiting Last Admin: 04/18/19 10:06 Dose: 4 mg Pantoprazole Sodium (Protonix Inj) 40 mg IVP DAILY [facility] Last Admin: 04/17/19 09:45 Dose: 40 mg Polyethylene Glycol (Miralax) 17 gm PO DAILY PRN PRN Reason: Constipation Potassium Chloride (K-Dur 20 Meq Er Tab) 20 meq PO DAILY [facility] Last Admin: 04/17/19 09:49 Dose: 20 meq Sucralfate (Carafate Tab) 1 gm PO 0600,1600 [facility] Last Admin: 04/18/19 05:12 Dose: 1 gm - Labs Labs: 04/18/19 07:00 04/18/19 07:00 - Constitutional Appears: Non-toxic, No Acute Distress - Eye Exam Eye Exam: EOMI, PERRL - ENT Exam ENT Exam: Mucous Membranes Moist - Respiratory Exam Respiratory Exam: Clear to Ausculation Bilateral. absent: Rales, Rhonchi, Wheezes - Cardiovascular Exam Cardiovascular Exam: RRR, +S1, +S2 - GI/Abdominal Exam GI & Abdominal Exam: Soft, Tenderness (epigastric, LLQ, RLQ - mild), Normal Bowel Sounds. absent: Distended, Firm, Guarding, Rigid, Organomegaly - Extremities Exam Extremities Exam: Normal Inspection. absent: Pedal Edema - Neurological Exam Neurological Exam: Alert, Awake, Oriented x3 - Psychiatric Exam Psychiatric exam: Flat Affect - Skin Skin Exam: Dry, Warm Assessment and Plan - Assessment and Plan (Free Text) Assessment: Patient is a 44yo female with PMHx significant for ucnontrolled DM type 1 complicated by gastroparesis, PUD and HTN who presented to the ED with abdominal pain, nausea and vomiting -Abdominal pain, presumed to be 2/2 recurrent exacerbation of gastroparesis -E coli UTI -Uncontrolled DM1 -Chronic microcytic anemia Plan: -Ongoing treatment for E Coli UTI, leukocytosis improved -Advance diet as tolerated -Continue home medications - carafate and PPI -Zofran PRN -Tight glycemic control - A1c never below 10; in setting on ongoing anemia likel y underestimated -Bowel regimen as ordered -OK for D/C from GI standpoint if tolerating diet <Maxime Wong Y - Last Filed: 04/18/19 14:26> Objective - Vital Signs/Intake and Output Vital Signs (last 24 hours): Temp Pulse Resp BP Pulse Ox 97.9 F 112 H 20 129/74 98 04/18/19 06:00 04/18/19 11:31 04/18/19 06:00 04/18/19 11:31 04/18/19 06:00 Intake and Output: 04/18/19 04/18/19 06:59 18:59 Intake Total 1140 Balance 1140 - Medications Medications: Current Medications Amlodipine Besylate (Norvasc) 5 mg PO DAILY [facility] Last Admin: 04/18/19 11:31 Dose: 5 mg Docusate Sodium (Colace) 100 mg PO BID [facility] Last Admin: 04/18/19 11:30 Dose: 100 mg Insulin Detemir (Levemir) 14 unit SC HS [facility] Last Admin: 04/17/19 21:33 Dose: 14 units Insulin Human Lispro (Humalog) 8 units SC ACTID [facility] Last Admin: 04/18/19 12:21 Dose: Not Given Ketorolac Tromethamine (Toradol) 30 mg IVP Q6H PRN PRN Reason: Pain, moderate (4-7) Last Admin: 04/17/19 21:19 Dose: 30 mg Lorazepam (Ativan) 0.5 mg PO BID [facility]; Protocol Last Admin: 04/18/19 11:31 Dose: 0.5 mg Metoprolol Tartrate (Lopressor) 50 mg PO BID [facility] Last Admin: 04/18/19 11:30 Dose: 50 mg Morphine Sulfate (Morphine) 2 mg IVP Q6H PRN PRN Reason: Pain, severe (8-10) Last Admin: 04/18/19 10:01 Dose: 2 mg Ondansetron HCl (Zofran Inj) 4 mg IVP Q4H PRN PRN Reason: Nausea/Vomiting Last Admin: 04/18/19 10:06 Dose: 4 mg Pantoprazole Sodium (Protonix Ec Tab) 40 mg PO ACB [facility] Polyethylene Glycol (Miralax) 17 gm PO DAILY PRN PRN Reason: Constipation Potassium Chloride (K-Dur 20 Meq Er Tab) 20 meq PO DAILY [facility] Last Admin: 04/18/19 11:31 Dose: 20 meq Sucralfate (Carafate Tab) 1 gm PO 0600,1600 [facility] Last Admin: 04/18/19 05:12 Dose: 1 gm - Labs Labs: 04/18/19 07:00 04/18/19 07:00 Attending/Attestation - Attestation I have fully participated in the care of the patient.: Yes I have reviewed all pertinent clinical information, including history, physical exam and plan: Yes Notes (Text): 04/18/19 14:25 DM HTN UTI Chronic anemia - Advance diet slowly as tolerated - Continue with antibiotic therapy as per ID - Strict glycemic control - No planned GI intervention at this time, will sign off case. Please reconsult as necessary, thank you.
[2019-04-18 16:27] VITALS: TEMP 98.5
[2019-04-18] MEDS: Insulin Detemir 100 units/ml Vial (Levemir) SC SCH (21:29)
--- NOTE | 2019-04-18 23:33 | DS ---
HISTORY OF PRESENT ILLNESS: She is resting comfortably in bed. She actually slept fairly well last night. The pain is less in the abdomen. She is asking for more food. MEDICATIONS: She is on Ativan, Carafate, Colace, insulin, potassium, Levemir, Lopressor, Merrem, MiraLax, morphine, Norvasc, Protonix, Toradol, and Zofran. PHYSICAL EXAMINATION: VITAL SIGNS: She has 97.8 temperature, 112 pulse, 146/78 blood pressure, and 18 respiratory rate. HEENT: Head; atraumatic and normocephalic. HEART: Regular rate. LUNGS: Clear to auscultation. ABDOMEN: Soft. Positive bowel sounds. No guarding. No rebound. No CVA tenderness. EXTREMITIES: Have no edema. LABORATORY DATA: She has a 9.5 white count, 9.9 hemoglobin, 32.6 hematocrit with 459 platelets. She has a 139 sodium, potassium 3.8, BUN 30, creatinine 1, GFR is greater than 60, sugar is 259, calcium 8.9, and total bili is 0.7. AST is 25, ALT is 22, alk phos , and total protein 7.6. Urine has moderate bacteria, had many when she came in, she is improving in that regard and had E. coli in the urine. ASSESSMENT AND PLAN: She was being seen by Infectious Disease and by GI. I am hoping that if she continues to improve, I will increase her diet to soft for breakfast and regular for lunch if she does well with that and it is okay with the other doctors, maybe we can change her over to tablets, oral antibiotics. I will discuss that with Infectious Disease. Her abdomen is improving, less nauseous and I will see after Infectious Disease examined her this morning. This is a discharge summary with hopeful that she might be able to be changed to oral antibiotics, if not she will be given another day. David Theodore DO MTDD
[2019-04-19] MEDS ORDERED: Pantoprazole 40 mg EC Tab PO SCH (07:30)
--- NOTE | 2019-04-19 07:43 | CP.PCM.PN ---
Subjective - Date & Time of Evaluation Date of Evaluation: 04/19/19 Time of Evaluation: 09:30 - Subjective Subjective: Infectious disease progress note: Pt seen and examined at bedside. No acute events overnight. Patient still complains of abdominal pain however states that it has improved. No fevers or chills. 12 Point ROS performed and neg other than stated above Objective - Vital Signs/Intake and Output Vital Signs (last 24 hours): Temp Pulse Resp BP Pulse Ox 98.5 F 77 18 114/78 98 04/18/19 16:26 04/18/19 17:53 04/18/19 16:26 04/18/19 17:53 04/18/19 16:26 Intake and Output: 04/19/19 04/19/19 06:59 18:59 Intake Total 1860 Balance 1860 - Medications Medications: Current Medications Amlodipine Besylate (Norvasc) 5 mg PO DAILY [facility] Last Admin: 04/18/19 11:31 Dose: 5 mg Docusate Sodium (Colace) 100 mg PO BID [facility] Last Admin: 04/18/19 17:53 Dose: 100 mg Insulin Detemir (Levemir) 14 unit SC HS [facility] Last Admin: 04/18/19 21:29 Dose: 14 units Insulin Human Lispro (Humalog) 8 units SC ACTID [facility] Last Admin: 04/18/19 17:54 Dose: 8 units Ketorolac Tromethamine (Toradol) 30 mg IVP Q6H PRN PRN Reason: Pain, moderate (4-7) Last Admin: 04/19/19 03:04 Dose: 30 mg Lorazepam (Ativan) 0.5 mg PO BID [facility]; Protocol Last Admin: 04/18/19 17:53 Dose: 0.5 mg Metoprolol Tartrate (Lopressor) 50 mg PO BID [facility] Last Admin: 04/18/19 17:53 Dose: 50 mg Morphine Sulfate (Morphine) 2 mg IVP Q6H PRN PRN Reason: Pain, severe (8-10) Last Admin: 04/18/19 23:28 Dose: 2 mg Ondansetron HCl (Zofran Inj) 4 mg IVP Q4H PRN PRN Reason: Nausea/Vomiting Last Admin: 04/19/19 02:54 Dose: 4 mg Pantoprazole Sodium (Protonix Ec Tab) 40 mg PO ACB [facility] Polyethylene Glycol (Miralax) 17 gm PO DAILY PRN PRN Reason: Constipation Potassium Chloride (K-Dur 20 Meq Er Tab) 20 meq PO DAILY [facility] Last Admin: 04/18/19 11:31 Dose: 20 meq Sucralfate (Carafate Tab) 1 gm PO 0600,1600 [facility] Last Admin: 04/19/19 05:32 Dose: 1 gm - Labs Labs: 04/18/19 07:00 04/18/19 07:00 - Constitutional Appears: No Acute Distress - Head Exam Head Exam: ATRAUMATIC, NORMOCEPHALIC - Eye Exam Eye Exam: EOMI - ENT Exam ENT Exam: Mucous Membranes Moist - Respiratory Exam Respiratory Exam: Clear to Ausculation Bilateral. absent: Wheezes - Cardiovascular Exam Cardiovascular Exam: REGULAR RHYTHM, +S1, +S2 - GI/Abdominal Exam GI & Abdominal Exam: Soft. absent: Tenderness - Extremities Exam Extremities Exam: absent: Calf Tenderness, Pedal Edema - Neurological Exam Neurological Exam: Alert, Awake - Psychiatric Exam Psychiatric exam: Normal Mood - Skin Skin Exam: Dry, Warm Assessment and Plan - Assessment and Plan (Free Text) Assessment: SIRS 2/2 gastroparesis Asymptomatic bacteriurea - urine cx positive with E.coli Gastroparesis Type 1 diabetes Diabetic neuropathy GERD Diabetic foot ulcers PUD Wbc improving Cont to monitor off of abx - No evidence of infection. Pt at risk of nosocomial infection D/c meropenem yesterday Follow-up septic work-up, urinalysis has been negative, urine cx positive with E.coli however she is asymptomatic Urinalysis from yesterday was positive, f/u repeat cx Chest x-ray showed no active disease Follow-up cardiology and gastroenterology recommendations Continue to monitor for any changes Case and plan to be reviewed and discussed with Dr. Velazco
[2019-04-19] MEDS: Potassium Chloride 20 mEq ER Tab PO SCH (09:04)
[2019-04-19] MEDS: Insulin Lispro 1 UNITS/0.01 ML SC SCH (09:04)
[2019-04-19 09:06] VITALS: BP 137/67; PULSE 105
[2019-04-19 09:25] VITALS: RESP 17
--- NOTE | 2019-04-20 00:54 | DS ---
HISTORY OF PRESENT ILLNESS: She is feeling much better. She wants to go home. She is eating better and no nausea or vomiting. PHYSICAL EXAMINATION: VITAL SIGNS: 98.5 temperature, 105 pulse, 137/61 blood pressure, 18 respiratory rate, and 90% O2 sat on room air. HEENT: Head is atraumatic and normocephalic. HEART: Regular rate. LUNGS: Clear to auscultation. ABDOMEN: Soft and nontender. Positive bowel sounds. EXTREMITIES: No edema. NEUROLOGIC: She is in good spirits. She is talking well. She is comfortable. She had leukocytosis. She had back pain. She had abdominal pain. She had UTI. MEDICATIONS: She is currently on Ativan, Carafate, Colace, insulin, potassium, Levemir, Lopressor, MiraLax, morphine, Norvasc, Protonix, Toradol, and Zofran. LABORATORY DATA: She has a 9.5 white count, 9.9 hemoglobin, and 459 platelets. Last blood sugar was 231. She understands she has to control her diabetes, she knows what to do it, she has been doing in a very long time. I will see her on an outpatient next week. She has medications and she will call me if anything changes. David Theodore DO MTDD
== END 2019-04-19 17:25 | disposition home or self-care (01) | DRG 533 ==
LOC: ED 14:23 → ERH 17:39 → 2RNO 20:13 → OBSVTOIN 04-17 08:26 → 3RNO 04-17 18:20
PROVIDERS: ADMIT Family Medicine; ATTEND Family Medicine
DX: E10.43 Type 1 diabetes mellitus with diabetic autonomic (poly)neuropathy (principal); R65.10 Systemic inflammatory response syndrome (SIRS) of non-infectious origin without acute organ dysfunction; N39.0 Urinary tract infection, site not specified; L97.509 Non-pressure chronic ulcer of other part of unspecified foot with unspecified severity; E10.40 Type 1 diabetes mellitus with diabetic neuropathy, unspecified; K31.84 Gastroparesis; E10.621 Type 1 diabetes mellitus with foot ulcer; E10.65 Type 1 diabetes mellitus with hyperglycemia; D50.9 Iron deficiency anemia, unspecified; I10 Essential (primary) hypertension; K21.9 Gastro-esophageal reflux disease without esophagitis; K27.9 Peptic ulcer, site unspecified, unspecified as acute or chronic, without hemorrhage or perforation; B96.20 Unspecified Escherichia coli [E. coli] as the cause of diseases classified elsewhere